=== PATIENT | female | born 1950 | race Caucasian/White ===

== ENCOUNTER → 2017-10-18 08:46 | Outpatient (CLI) | payer OTHER, SELFPAY ==
--- NOTE | 2017-10-15 08:15 | RAD_ITS ---
STUDY: X-RAY - ABDOMEN/PELVIS REASON FOR EXAM: Female, 67 years old. 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 TECHNIQUE: Single AP view of the abdomen / pelvis. COMPARISON: None. FINDINGS: Residual fecal material is seen in the colon. The barium enema was rescheduled for further cleansing. RAD/Abdomen Single View IMPRESSION: Fecal material is seen in the colon. The barium enema is rescheduled with further colon cleansing. Electronically Signed: Felix Galeana MD at 9:12 EST Tel [phone], Service support ,
--- NOTE | 2017-10-16 08:45 | RAD_ITS ---
STUDY: X-RAY - ABDOMEN/PELVIS REASON FOR EXAM: Female, 67 years old. Preliminary view for barium enema. TECHNIQUE: Single AP view of the abdomen / pelvis. COMPARISON: None. FINDINGS: Residual fecal material is seen in the colon. Further bowel prep is needed. RAD/Abdomen Single View IMPRESSION: Residual fecal material in the colon. Further bowel prep is needed. Electronically Signed: Felix Galeana MD at 10:15 EST Tel [phone], Service support ,
--- NOTE | 2017-10-18 09:45 | RAD_ITS ---
STUDY: X-RAY - ABDOMEN/PELVIS REASON FOR EXAM: Female, 67 years old. Preliminary imaging for barium enema. TECHNIQUE: Single AP view of the abdomen / pelvis. COMPARISON: Comparison is made with prior examination dated 2017. FINDINGS: Residual fecal material is seen in the colon. Further prep is recommended. RAD/Abdomen Single View IMPRESSION: Residual fecal material seen in the colon. Electronically Signed: Felix Galeana MD at 15:23 EST Tel [phone], Service support ,
== END ==
PROVIDERS: Family Provider Family Medicine; PCP Family Medicine; Visit Provider Surgery
DX: R93.5 Abnormal findings on diagnostic imaging of other abdominal regions, including retroperitoneum (principal)
CPT/HCPCS: 74018

== ENCOUNTER → 2018-01-17 08:18 | Outpatient (CLI) | payer MEDICARE, OTHER, SELFPAY ==
--- NOTE | 2018-01-17 08:26 | BI_ITS ---
MAMMOGRAPHY - BILATERAL SCREENING REASON FOR EXAM: Female, 67 years old. Routine annual screening examination. PERTINENT HISTORY: Non-contributory. TECHNIQUE: Digital bilateral breast sharron (3D mammographic acquisition) in the CC and MLO projections. 2-D mediolateral oblique (MLO) and craniocaudad (CC) views of both breasts were obtained. CAD: Full Field Digital Mammography with Computer Added Detection was performed. COMPARISON: Comparison is made with prior study dated December 24, 2016 and December 22, 2015. FINDINGS: Breast Composition: The breasts are heterogeneously dense, which may obscure small masses. There are no dominant masses or suspicious calcifications. No other significant abnormalities are identified. There has been no significant change since the prior study. BI/SCREENING MAMM (CAD), BILAT IMPRESSION: Stable bilateral screening mammogram. Yearly follow-up mammogram recommended. (A) ASSESSMENT CATEGORY: BIRADS Category 1: Negative. A letter regarding these results will be sent to the patient by the facility within 30 days. Approximately 10% of breast cancers are not detected by mammography. A normal mammogram should not delay biopsy of a clinically suspicious abnormality. [id number] Electronically Signed: Felix Galeana MD at 10:38 EDT Tel [phone], Service support ,
== END ==
PROVIDERS: Family Provider Family Medicine; PCP Family Medicine; Visit Provider Obstetrics & Gynecology
DX: Z12.31 Encounter for screening mammogram for malignant neoplasm of breast (principal)
CPT/HCPCS: 77063; 77067

== ENCOUNTER 2018-02-08 12:23 | Emergency (ER) | payer MEDICARE, OTHER, SELFPAY ==
[2018-02-08 12:24] VITALS: BP 145/107; PULSE 87; RESP 14; TEMP 36.7; O2SAT 97; BMI 24.9
--- NOTE | 2018-02-08 12:44 | CT_ITS ---
STUDY: CT ABDOMEN AND PELVIS WITHOUT CONTRAST REASON FOR EXAM: Female, 67 years old. Right lower quadrant pain, history of hysterectomy, appendectomy, cholecystectomy, and partial bowel resection for diverticulitis. RADIATION DOSAGE (If Supplied By Facility): CTDIvol = ( 6.95 ) mGy, DLP = ( 326.28 ) mGycm TECHNIQUE: Transaxial images were obtained from the dome of the diaphragm to the symphysis pubis without oral contrast, and without intravenous contrast. Sagittal and coronal images were reconstructed. Individualized dose optimization techniques were used for this CT. COMPARISON: 09/23/2017 FINDINGS: The visualized lung bases are unremarkable. The visualized portions of the heart are within normal limits. Evaluation of the abdominal viscera is limited in the absence of intravenous contrast. There is a small calcification within the liver which may represent old granulomatous disease. The gallbladder is not visualized. Normal spleen. Normal pancreas. Normal bilateral adrenal glands. Normal right kidney. There are multiple parapelvic cysts within the left kidney. There is an intermediate attenuation exophytic lesion along the posterior left kidney. This was present on the prior study, and may represent a hyperdense cyst. Normal visualized stomach. Normal small intestine. Postoperative changes are seen to the rectosigmoid colon. There are multiple colon diverticula. There are surgical clips in the region of the appendix consistent with a prior appendectomy. There is diffuse atherosclerotic calcification of the abdominal aorta, without a demonstrated aneurysm. Normal inferior vena cava. Normal retroperitoneum. Normal urinary bladder. There is absence of the uterus consistent with a prior hysterectomy. Postoperative changes are seen to the anterior abdominal wall. There are diffuse degenerative changes of the visualized lumbar spine. CT/Abdomen/Pelvis without Cont IMPRESSION: No bowel obstruction or acute renal pathology. Postoperative changes of appendectomy, cholecystectomy, and hysterectomy. Diverticulosis, without acute diverticulitis. There is a 1.2 cm intermediate attenuation lesion along the posterior left kidney, which may represent a hyperdense cyst. This can be further interpreted by ultrasound. Additional nonacute findings, as detailed above. Electronically Signed: Kalpesh March DO at 14:21 EDT Tel , Service support ,
[2018-02-08] MEDS: morphine 8 MG/ML Syringe IV (13:03)
[2018-02-08] MEDS: Ondansetron 4 MG/2 ML Vial IV (13:04)
[2018-02-08 13:23] LABS: Absolute Lymphocyte Count 1.34 X10^3/ul (0.83-4.51); Absolute Neutrophil Count 3.3 X10^3/uL (2.0-7.7); Basophil# 0.02 X10^3/uL; Basophil% 0.3 % (0-1); Eosinophil# 0.34 X10^3/uL; Eosinophils% 5.8 % (0-5); Hematocrit 46.2 % (37-47); Hemoglobin 15.7 g/dl (12.0-15.0); Lymphocyte # 1.34 X10^3/ul (4.0); Mean Corpuscular Hgb 30.4 pg (27.0-32.0); Mean Corpuscular Volume 89.5 fL (81-99); Mean Platelet Vol. 11.3 fl (6.2-12.0); Monocyte# 0.79 X10^3/uL; Monocyte% 13.6 % (0-10); Neutrophil # 3.32 X10^3/uL (2.7-7.7); Neutrophil % 57.1 % (47-70); Platelet Count 121 K/mm3 (150-450); RBC Distribution Width CV 13.3 % (11.6-14.6); RBC Distribution Width SD 43.4 fl (35.1-43.9); Red Blood Count 5.16 M/mm3 (4.2-5.4); White Blood Count 5.8 K/mm3 (4.4-11.0)
[2018-02-08 13:24] LABS: POSITIVE COUNT NO; POSITIVE DIFFERENTIAL NO; POSITIVE MORPHOLOGY NO
[2018-02-08 13:37] LABS: ALB/GLOB Ratio 1.1 RATIO (0.9-2.4); AST(SGOT) 13 U/L (15-37); Alanine Aminotransfer ALT/SGPT 21 U/L (13-56); Albumin, Serum 3.5 g/dL (3.2-5.0); Alkaline Phosphatase 102 U/L (45-117); Anion Gap 7 (5-15); BUN 16 mg/dL (7-18); BUN/Creat Ratio 19.2 RATIO (10-20); Calcium,Total 9.3 mg/dL (8.5-10.1); Chloride 112 mmol/L (98-107); Creatinine, Serum 0.83 mg/dL (0.55-1.02); EST Glomerular Filtration Rate 73 mL/min (>60); Est Glom Filt Rate - Afr Amer 88 mL/min (>60); Estimated Creatinine Clearance 57.57 ml/min; Globulin 3.2 g/dL (2.2-4.2); Glucose 85 mg/dL (74-106); Potassium 3.8 mmol/L (3.5-5.1); Protein, Total 6.7 g/dL (6.4-8.2); Sodium Level 143 mmol/L (136-145)
--- NOTE | 2018-02-08 13:38 | ED.DCSUM_ITS ---
- ER Visit Summary Date of Service: 02/08/18 Chief Complaint: [] Right-sided abdominal pain for months status post colon resection earlier in the year History of Present Illness: The patient is a 67 F [] she reports she had a colon resection early in this year at [facility] uncomplicated, postop she is developed side abdominal pain she has been evaluated by her physicians for this including CAT scans and other studies are unremarkable she was referred to pain management. The pain has persisted she is on either Frisco or Percocet at home but does not like taking them the pain is simply persisted she came in for evaluation she is eating and drinking her bowel and bladder habits are normal she has multiple surgeries including colectomy prior cholecystectomy appendectomy hysterectomy she was told the pain is likely related to adhesions, she points directly to the right side of her abdomen as the focus of the pain Physical Examination: [] No distress her vital signs are normal head neck chest unremarkable abdomen soft there is a very mild discomfort to the right side abdomen there is no firmness fullness guarding signs of hernia or other gross abnormalities there is no rebound or guarding the back is unremarkable upper lower extremities unremarkable the rest of exams unremarkable Test Results: [] Emergency Department Course and Treatment: [] She has had these symptoms for months that is acute and recurrent, she has had a prior extensive evaluation the differential is rather extensive screening labs CT are obtained pain management IV fluids Since labs are all generally unremarkable see those reports the CT abdomen shows nothing acute see that report as well and long conversation with her the understand the test results this is a long-standing condition she has had of explained exact etiology is unclear and she is to follow with her physicians who have been managing this process for more definitive management options in the meantime she is in a bland diet she has Percocet or Frisco at home that she has been prescribed to use and she will return for change in symptoms Treatment Plan: [] Disposition: [] Home stable Impression: [] Acute recurrent right sided abdominal pain with exacerbations for months This note was generated with [employer] dictation software. It may contain incorrect words, spelling, and punctuation that were not noted in review of the chart prior to signing ED Disposition - Plan for ED Patient: Chief Complaint: Other, Pain/Inj Referrals: Hans Armenta III, MD [Primary Care Provider] -
[2018-02-08 14:25] LABS: Bacteria 0 SEEN /hpf (None Seen); Mucous, Urine 0 SEEN /hpf (<or=2+)
[2018-02-08 14:27] LABS: Color, Urine Yellow (Yellow); Glucose, Dipstick Normal (Normal); Ketone-Dipstick Negative (Negative); Leukocyte Esterase-Dipstick 25 /ul (Negative); Nitrite-Dipstick Negative (Negative); Occult Blood-Urine Negative /ul (Negative); Protein-Dipstick Negative (Negative); Urine Bilirubin Dipstick Negative (Negative); Urine Clarity Clear (Clear); Urine Urobilinogen Normal (Normal)
[2018-02-08 14:41] LABS: Red Blood Cells-Urine 0-5 SEEN /hpf (0-5); Squamous Epithelial Cells - UA 5-10 SEEN /hpf (5-10); White Blood Cells 0-5 SEEN /hpf (0-5)
--- NOTE | 2018-02-08 16:03 | ED.DEP ---
ED Disposition - Plan for ED Patient: Chief Complaint: Other, Pain/Inj Instructions: Abdominal Pain, ED Abdominal Pain Unkn Cause Referrals: Hans Armenta III, MD [Primary Care Provider] -
[2018-02-08 16:32] VITALS: BP 136/82; PULSE 70; RESP 16; O2SAT 100
== END 2018-02-08 16:33 | disposition home or self-care (01) ==
PROVIDERS: Emergency Provider Emergency Medicine; Family Provider Family Medicine; PCP Family Medicine
DX: R10.9 Unspecified abdominal pain (principal); Z90.710 Acquired absence of both cervix and uterus; Z90.49 Acquired absence of other specified parts of digestive tract
CPT/HCPCS: 74176; 80053; 81001; 85025; 96374; 96375; 99282; A4216; J2405

== ENCOUNTER → 2018-02-19 10:50 | Outpatient (CLI) | payer MEDICARE, OTHER, SELFPAY ==
--- NOTE | 2018-02-19 11:30 | MRI_ITS ---
STUDY: MRI ABDOMEN WITH AND WITHOUT CONTRAST REASON FOR EXAM: Female, 67 years old. Liver mass left lobe. TECHNIQUE: Standardized fat and water weighted pulse sequences were obtained in all 3 orthogonal planes post contrast administration. 7 ml of Gadavist contrast material was administered intravenously for the contrast portion of the examination. COMPARISON: CT abdomen and pelvis 12/24/2017, 02/08/2018, 08/12/2016. Ultrasound liver 02/04/2018. FINDINGS: Ultrasound report of 02/05/2018 describes a 16 x 11 x 15 mm echogenic mass abutting or arising from the left portal vein. This structure is seen also on the contrast-enhanced CT scan of 12/24/2017. On the MRI, the apparent lesion associated with the left portal vein has substantially diminished in size. It now measures a greatest dimension of about 7 mm. It has signal characteristics and morphology consistent with an intraluminal thrombus. Benign nonenhancing left renal cysts. There is no other acute intra-abdominal process. MRI/MRI Abd WITH and W/O Contrast IMPRESSION: Left portal vein, intraluminal thrombus substantially diminished in size compared to recent prior imaging. It now measures about 7 mm. Electronically Signed: Marvin Arrieta, at 12:40 EDT Tel , Service support ,
== END ==
PROVIDERS: Family Provider Family Medicine; PCP Family Medicine; Visit Provider Family Medicine
DX: R16.0 Hepatomegaly, not elsewhere classified (principal)
CPT/HCPCS: 74183; A9585; A4216

== ENCOUNTER → 2018-04-01 08:56 | Outpatient (CLI) | payer MEDICARE, OTHER, SELFPAY ==
--- NOTE | 2018-04-01 08:58 | US_ITS ---
STUDY: RENAL ULTRASOUND - COMPLETE REASON FOR EXAM: Female, 67 years old. Left renal cyst follow-up. TECHNIQUE: Ultrasound evaluation of the kidneys was performed with real-time and static porter-scale imaging. COMPARISON: CT abdomen and pelvis February 08, 2018; MRI abdomen February 19, 2018. FINDINGS: RIGHT KIDNEY: Normal location of the right kidney, which is normal in size. The right kidney measures 10.0 x 4.6 x 5.2 cm. There is a normal cortex of the right kidney. The renal cortex measures 1.4 cm. There is no right renal mass or cyst. There are no right renal calculi. There is no right hydronephrosis. DISTAL RIGHT URETER: There is non-visualization of the distal right ureter. There is no demonstrated right ureterovesical junction calculus. There is a visualized right ureteral jet. LEFT KIDNEY: Normal location of the left kidney, which is normal in size. The left kidney measures 9.7 x 4.6 x 4.3 cm. There is a normal cortex of the left kidney. The renal cortex measures 1.3 cm. There is a 1.6 x 1.6 x 1.2 cm simple appearing cortical cyst in the upper pole. A 1.3 x 1.1 x 1.4 cm parapelvic upper pole cyst is also suggested, although this may be a calyceal component of the pelvocaliectasis noted on prior imaging. There are no left renal calculi. DISTAL LEFT URETER: There is non-visualization of the distal left ureter. There is no demonstrated left ureterovesical junction calculus. There is a visualized left ureteral jet. BLADDER: The distended urinary bladder has a volume of 318.4 ml. There is a normal 3 mm wall thickness of the distended urinary bladder. There is no demonstrated mass within the urinary bladder. There are no demonstrated bladder calculi. US/Kidney and Bladder IMPRESSION: 1. Stable cortical cyst upper pole left kidney. 2. 1.4 cm parapelvic left upper pole cyst versus stable calyceal component of left pelvocaliectasis. 3. No ureteral dilatation. 4. Unremarkable right kidney and urinary bladder. Electronically Signed: Meng Kilgore MD at 19:37 EDT , Service support ,
== END ==
PROVIDERS: Family Provider Family Medicine; PCP Family Medicine; Visit Provider Urology
DX: D30.00 Benign neoplasm of unspecified kidney (principal)
CPT/HCPCS: 76770

== ENCOUNTER 2018-12-10 12:34 | Emergency (ER) | payer MEDICARE, OTHER, SELFPAY ==
[2018-12-10 12:37] VITALS: BP 163/83; PULSE 77; RESP 16; TEMP 36.7; O2SAT 97; BMI 25.7
--- NOTE | 2018-12-10 12:48 | EKG12_ITS ---
Test Reason : Blood Pressure : / mmHG Vent. Rate : 063 BPM Atrial Rate : 063 BPM P-R Int : 172 ms QRS Dur : 072 ms QT Int : 402 ms P-R-T Axes : 051 -29 049 degrees QTc Int : 411 ms Normal sinus rhythm with sinus arrhythmia Normal ECG Confirmed by KENAN BONE, PARAM ([id number]), newspaper editor managing TIMI CROSS ([id number]) on 12/12/2018 8:35:05 AM Referred By: EILEEN Confirmed By:PARAM GRAYSON MD
--- NOTE | 2018-12-10 12:55 | RAD_ITS ---
STUDY: X-RAY CHEST REASON FOR EXAM: Female, 68 years old. Chest pain. Cough. TECHNIQUE: PA and lateral views of the chest. COMPARISON: None. FINDINGS: EKG electrodes are seen. The lungs are clear and expanded. Scattered calcified granulomas. The lungs are clear. There is no demonstrated pleural abnormality. Normal size heart. Normal mediastinum and edel. Normal visualized pulmonary arteries. Normal visualized aortic arch and descending thoracic aorta. There is demineralization of the osseous structures. Normal visualized ribs, clavicles, and shoulders. There is no demonstrated abnormality of the visualized soft tissue structures of the upper abdomen. RAD/Chest PA and Lateral IMPRESSION: Hyperinflation. No acute abnormality is seen. Electronically Signed: Felix Galeana, at 14:19 EDT , Service support ,
--- NOTE | 2018-12-10 13:10 | ED.VIS.GEN ---
History of Present Illness Chief Complaint: Palpitations Detail of Chief Complaint: Sent for evaluation of Evon garza Informant: Patient, Family Onset: - - Unknown Context: - - Unknown Timing: - - Unknown Quality: No cardiac symptoms Current Severity: Mild Maximum Severity: Mild Worsened by: Nothing Relieved by: Nothing Associated Symptoms: URI symptoms that started end of October. Placed on antibiotics Narrative: Elderly woman who reports URI symptoms that started at the end of October. Seen at urgent care November 26 placed on Z-Amado. Her and her went to [place] for 1 month vacation. She complained of leg pain but denies swelling or discoloration. She went to urgent care because of persistent cough and was sent to the emergency room because of irregular heartbeat and concern for atrial fibrillation. She denies fever, chills night sweats. She states she received influenza vaccine and Pneumovax vaccine this fall. Prior similar symptoms: Yes Recent Illness/Hospitalization: Yes - Past Medical History (1) History of hypothyroidism Status: Chronic (2) Diverticulosis Status: Resolved (3) GERD (gastroesophageal reflux disease) Status: Chronic (4) History of cholecystectomy Status: Resolved (5) History of hysterectomy Status: Acute (6) IBS (irritable bowel syndrome) Status: Resolved Past Medical History - Allergies and Home Meds Allergies/Adverse Reactions: Allergies atorvastatin [From Lipitor] Allergy (Mild, Verified 12/10/18 12:36) itching Primary Care Physician: Hans Armenta III, MD [Primary Care Provider] - Prior records reviewed: Yes Lives: Spouse/ Significant Other Smoking Status: Never smoker Drugs: None Review of Systems General: Denies: Chills, Fever, Sweats Eyes: Denies: Visual changes - bilaterally, Blurred Vision - bilaterally, Diplopia ENT: Denies: Bilateral ear pain, Rhinorrhea, Sore throat Cardiovascular: Denies: Chest pain, Palpitations Respiratory: Reports: Cough. Denies: Dyspnea, Dyspnea on exertion, Orthopnea Gastrointestinal: Denies: Abdominal pain, Nausea, Vomiting, Diarrhea, Melena, Hematochezia Genitourinary: Denies: Dysuria, Hematuria, Frequency Musculoskeletal: Denies: Myalgias, Arthralgias, Back pain, Extremity Pain Skin: Denies: Rash, Wounds Neurological: Denies: Headache, Weakness, Parasthesia, Numbness Hematologic: Denies: Easy bruising, Easy bleeding Physical Exam Vital Signs/Narrative: Vital Signs Temp Pulse Resp BP Pulse Ox 12/10/18 12:37 98.1 F 77 16 163/83 H 97 Inital Vital Signs reviewed: Yes General: Well nourished, Well developed, No Acute Distress Head: Normocephalic, Atraumatic Eyes: Perrl, EOMI. Negative for: Pale conjunctiva, Scleral icterus ENT: Moist mucous membranes, No rhinorrhea, TM's clear. Negative for: Nasal congestion Neck: Supple, Nontender, No lymphadenopathy, No JVD Cardiovascular: Regular rate, Regular rhythm, No murmurs, Normal S1, Normal S2 Respiratory: No distress, Chest nontender, Wheezing - Noted on right only Abdomen: Soft, Nontender, Nondistended, Normal bowel sounds, No masses Back: Nontender, Normal Inspection Extremities: Nontender, No edema, - - There is no asymmetry, swelling, discoloration, leg vein distention, palpable cords or tenderness along the distribution of the deep venous system. Skin: Normal color, No rash. Negative for: Cyanosis, Jaundice Neurological: Alert, Oriented x3, Cranial nerves II-XII grossly intact, Normal Strength, Normal Sensation, Normal Gait Psychological: Normal affect, Normal Mood Diagnostic/Tx/Re-eval Chest X-Ray - ED: 2 View, Read by ED Physician, Unchanged, Normal, Heart, Lungs, Mediastinum, Bony Structures, No Acute Disease - Rhythm Strip Rhythm Strip: Sinus Rhythm Rate: 80 Ectopy: PAC(s) - EKG Initial EKG Interpretation: Sinus Rhythm - Ventricular rate is 63. HI interval, QRS duration, QT interval and axis are normal. No PACs were noted. - Medical Decision Making EKG was ordered because of irregular heartbeat. Monitor reveals PACs. EKG revealed sinus rhythm with respiratory variance. Two-view chest x-ray is unremarkable. Patient was informed she has a viral upper respiratory infection and antibiotics are not indicated at this time. She was informed she did not get better because she was placed on antibiotics and antibiotics do not treat viral infections Differential diagnosis includes a pressor infection, pneumonia and exacerbation of bronchospasm. She was instructed to administer 2 puffs of her inhaler every 2-4 hours while awake for the next 3-5 days. If no improvement follow-up with her primary care physician. ED Disposition - Plan for ED Patient: Disposition: Home or Assisted Living Diagnosis: Asthmatic bronchitis Instructions: ED Palpitations, ED Upper Resp Infec No Abx Tx Referrals: Hans Armenta III, MD [Primary Care Provider] - 1 Week if not improving Additional Instructions: Recommend lower every 2-4 hours while awake for the next 3 days then every 4 hours as needed for wheezing or shortness of breath.
[2018-12-10 14:04] VITALS: BP 137/77; PULSE 59; RESP 17; O2SAT 99
== END 2018-12-10 14:59 | disposition home or self-care (01) ==
PROVIDERS: Emergency Provider Emergency Medicine; Family Provider Family Medicine; PCP Family Medicine
DX: J45.909 Unspecified asthma, uncomplicated (principal); K58.9 Irritable bowel syndrome, unspecified; K21.9 Gastro-esophageal reflux disease without esophagitis; E03.9 Hypothyroidism, unspecified; Z90.49 Acquired absence of other specified parts of digestive tract; Z90.710 Acquired absence of both cervix and uterus
CPT/HCPCS: 71046; 93005; 99282

== ENCOUNTER 2019-01-14 12:21 | Observation (INO) | payer MEDICARE, OTHER, SELFPAY ==
--- NOTE | 2018-12-25 07:21 | PCM.HP.BLA ---
History and Physical Date of Admission: 01/26/19 HISTORY AND PHYSICAL Hallie Guzman 1950 REFERRING PHYSICIAN: Hans Armenta III, MD CHIEF COMPLAINT: Consult (umbilical hernia) HPI: Hallie is a 68 year old female with a complaint of a bulge and discomfort in her prior midline incision. The patient notes discomfort in this area with lifting, coughing and moving. The symptoms have increased, over the past few months. The patient notes no symptoms of bowel obstruction and denies nausea or vomiting. The patient was seen by her primary care physician who felt the patient has a hernia. Hallie was referred for evaluation and treatment. She underwent an open sigmoid resection by Dr. Wolff at [facility] for a chronic diverticular stricture and developed an incisional hernia of approximately 9cm length at the level of the umbilicus. The patient is being seen by me today at the request of Dr. Hans Armetna III MD for my opinion and advice regarding an incision hernia. PAST MEDICAL HISTORY Diagnosis Date ? Benign neoplasm of colon ? Cyst of kidney, acquired ? Cyst of left kidney ? Diverticulosis of colon with hemorrhage sigmoid ? Esophagitis ? Essential hypertension, benign 11/08/2014 ? GERD (gastroesophageal reflux disease) 05/26/2009 ? Hypothyroidism ? IBS (irritable bowel syndrome) ? Seasonal allergies allergy injections ? Sebaceous cyst of left axilla 06/06/2018 ? 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 Trochanteric bursitis of right hip 12/12/2012 PAST SURGICAL HISTORY Procedure Laterality Date ? APPENDECTOMY ? CATARACT SURGERY, COMPLEX 07/26/16 ? CHOLECYSTECTOMY ? COLONOSCOP W/ OR W/O [facility] 11/10/2001 Colonoscopy ? COLONOSCOP W/ OR W/O [facility] 03/24/2008 Colonoscopy ? COLONOSCOP W/ OR W/O [facility] 02/08/16 Colonoscopy (MAC) ? COLONOSCOPY W/BX 04/18/12 ? D&C, DIAG AND/OR THERAPEUTIC ? EGD W/O OR W/BRUSH/WASH 07/22/2002 EGD ? LAP COLECTOMY, SIGMOID W/ATHLETIC DIRECTOR 11/11/2017 [facility]-Dr. Hayden Wolff ? PAST SURGICAL HISTORY OF LAPAROSCOPY FOR INFERTILITY ? PAST SURGICAL HISTORY OF 02/2011 right index finger ganglion cyst removal ? REMOVAL GALLBLADDER 04/2003 ? TOTAL ABD HYSTERECTOMY+BLAD REPR 1997 [facility] ? TOTAL ABDOM HYSTERECTOMY 1997 Current Outpatient Medications: cholecalciferol, vitamin D3, (VITAMIN D3) 4,000 unit cap Take 1 capsule by mouth once daily. metoprolol tartrate, short acting, (LOPRESSOR) 25 mg tablet Take 1 tablet by mouth twice daily as needed. albuterol HFA (PROAIR HFA) 90 mcg/actuation inhaler Inhale 2 Puffs as instructed every 4 hours as needed. benzonatate (TESSALON PERLES) 100 mg capsule Take 2 capsules by mouth three times daily as needed. levothyroxine (LEVOXYL) 88 mcg tablet Take 1 tablet by mouth once daily. Take on empty stomach. For Thyroid simvastatin (ZOCOR) 40 mg tablet Take 1 tablet by mouth daily at bedtime. pantoprazole DR (PROTONIX) 40 mg tablet Take 1 tablet by mouth once daily. fluticasone (FLONASE) 50 mcg/actuation nasal spray Use 2 Sprays in each nostril once daily. Rinse mouth after use. estradiol (ESTRACE) 0.01 % (0.1 mg/gram) vaginal cream Use small amount at vaginal opening 3 nights a week for 4 weeks sucralfate (CARAFATE) 1 gram tablet Take 1 tablet by mouth four times daily as needed. naproxen (NAPROSYN) 500 mg tablet Take 1 tablet by mouth twice daily as needed. Take with food. carbamide peroxide (DEBROX) 6.5 % otic solution Use 5 Drops in both ears twice daily. chlordiazePOXIDE-clidinium (LIBRAX) 5-2.5 mg per capsule Take 1 capsule by mouth three times daily. No current facility-administered medications for this visit. ALLERGIES: Lipitor [Atorvastatin Calcium] PERSONAL HISTORY: Social History Socioeconomic History Marital status: Spouse name: Luis Number of children: 2 Years of education: 13 Highest education level: Not on file Social Needs Financial resource strain: Not on file Food insecurity - worry: Not on file Food insecurity - inability: Not on file Transportation needs - medical: Not on file Transportation needs - non-medical: Not on file Occupational History Occupation: [employer] Employer: [employer] Tobacco Use Smoking status: Never Smoker Smokeless tobacco: Never Used Substance and Sexual Activity Alcohol use: Yes Comment: rarely Drug use: No Sexual activity: Yes Partners: Male control/protection: Surgical Comment: JUAN CARLOS Other Topics Concerns: Not on file Social History Narrative Not on file FAMILY HISTORY: FAMILY HISTORY Problem Relation Age of Onset ? Heart Mother ? Hypertension Mother ? Stroke Mother ? other (low iron) Mother ? Heart Father 3 stents ? None Brother ? Coronary Artery Disease Brother REVIEW OF SYMPTOMS: The review of systems data was entered by the nurse and reviewed by me Nursing Notes: Allyson Vazquez Ma 12/23/2018 2:52 PM Signed REVIEW OF SYSTEMS: General: The patient denies fatigue, denies weight loss, denies weight gain, denies feeling hot, and denies feelings of cold. Eyes: The patient denies glaucoma, NOTES eye injury/surgery, wears glasses or contacts. Ear/Nose/Throat: The patient NOTES allergies, denies hayfever, denies ear infections, and denies bloody noses. Cardiovascular: The patient denies chest pain, denies heart disease, denies high blood pressure,denies cardiac stent, denies prior heart attack, NOTES irregular heart beat, NOTES high cholesterol, denies poor circulation, denies heart failure, other cardiac issues, denies claudication, denies cold feet, denies peripheral arterial stent. Respiratory: The patient denies tuberculosis, denies pneumonia, denies frequent cough, denies pulmonary embolism, denies shortness of breath, and denies coughing up blood. Gastrointestinal: The patient denies difficulty swallowing, NOTES acid reflux, denies ulcers, denies vomiting, denies jaundice/hepatitis, denies gallbladder problems, denies black or tarry stools, denies hemorrhoids, denies bleeding from rectum, denies diverticulitis, NOTES constipation, denies diarrhea, denies loss of stool control, and NOTES hernias. Kidney/Bladder: The patient denies kidney stones, denies urine infections, and denies bloody urine. Skin: The patient NOTES a history of skin cancer, denies bleeding/changing moles, and denies a history of skin rash. Neurologic: The patient denies a history of epilepsy/convulsions, denies headaches, denies head/spinal injuries, and denies stroke/TIA. Psychiatric: The patient denies psychiatric medications, denies depression, and denies voices, denies substance abuse. Endocrine: The patient NOTES thyroid disorders, denies diabetes, and denies hormonal problems. Hematologic: The patient denies a history of bruising, denies bleeding, and denies anemia, denies blood clots, NOTES Low platlet count Infections: The patient denies a history of measles and mumps, denies rheumatic fever, and denies sexually transmitted diseases. Musculoskeletal: The patient denies back pain/injury, denies back problems, denies sciatica, denies knee/foot trouble, denies arthritis, or denies gout. When was patient's last Mammogram screening? 2018 Last Colonoscopy: 2015 Allysonreynold Vazquez Ma PHYSICAL EXAMINATION: General: The patient is 68 year old female, well nourished, well hydrated in no acute distress. The patient is oriented to time, place, and person. VITALS: Blood pressure 128/72, pulse 86, temperature 36.4 ?C (97.5 ?F), temperature source Temporal Artery, height 162.6 cm (5' 4), weight 74.8 kg (165 lb), SpO2 95 %. Body mass index is 28.32 kg/m?. HEENT: Normal cephalic, ataumatic, pupils are equally round, sclera are anicteric, mucous membranes are moist, oropharynx is clear. Neck has no masses, asymmetry or lymphadenopathy. Thyroid is unremarkable. Respiratory: Clear to auscultation and percussion. Normal respiratory excursion and pattern. Cardiac: Examination is regular rate and rhythm. Abdominal exam: Soft, nontender, with no palpable masses. No hepatosplenomegaly. A moderate reducible incisional hernia Rectal exam: exam deferred Extremities: no clubbing, cyanosis or edema. No adenopathy. Other: LABORATORY VALUES: As Noted RADIOLOGIC STUDIES: As Noted Assessment IMPRESSION: prior midline incisional hernia PLAN: My plan is to perform a laparoscopic incisional hernia repair with mesh. The planned surgical procedure was discussed extensively with the patient. The risks, benefits, anticipated outcomes and possible complications were mentioned. Hallie adameands that all hernia repair surgery has a chance of recurrence and/or chronic post operative pain. My staff has also explained the procedure in understandable terms and the patient was given the option to take printed material concerning the planned procedure. The patient had the opportunity to ask questions concerning the planned procedure. The patient freely consents to the planned procedure. My findings have been communicated to Dr. Hans Armenta III MD via shared medical record. This note will be forwarded to Dr. Hans Armenta III MD. Diagnoses: (K43.2) Incisional hernia, without obstruction or gangrene (primary encounter diagnosis) Anticipated CPT Code: laparoscopic incisional hernia repair - 67434-781 Anticipated Anesthetic: General Patient weight: Blood pressure 128/72, pulse 86, temperature 36.4 ?C (97.5 ?F), temperature source Temporal Artery, height 162.6 cm (5' 4), weight 74.8 kg (165 lb), SpO2 95 %. BMI: Body mass index is 28.32 kg/m?. Planned antibiotic: Ancef 2gm IVPB patient registration representative to OR SCDs needed - Yes Return to Clinic: The patient is instructed to follow-up with me after the testing has been completed. Marvin Ford MD
[2019-01-14] VITALS (19 sets, daily range): BP systolic 85–139; BP diastolic 44–94; PULSE 52–74; RESP 14–18; TEMP 35.8–37.4; O2SAT 2–100; BMI 28.5
--- NOTE | 2019-01-14 | HERN_PTH ---
PATIENT: ELIZABETH TALAVERA LOC: MS3 U#:[id number] AGE/SX: 68/F ROOM: MS312 RE01/14/[address]: Dr. Marvin Ford MD : 1950 BED: 1 DIS: 01/16/2019 SPEC #: [id number] RECD: 01/14/19 12:01 STATUS: CHRISTOS REQ #: [id number] JAYNE: 01/14/19 00:[address]: Marvin Ford DEPT: SURGICAL PATHOLOGY RECD BY: Jorge Tello ENTERED: 01/14/19 14:22 SP TYPE: Hernia OTHR DR: Dr. Hans Armenta III, MD Tissues: HERNIA Procedures: Surgery Specimen Level II HEADER OPERATION: Laparoscopic incisional hernia repair PRE-OP DIAGNOSIS: Incisional hernia TISSUE SUBMITTED: A - Hernia sac - incisional, B - Little incisional hernia sac MICROSCOPIC DIAGNOSIS A. Hernia sac, incisional: A piece of fibroadipose and fibroconnective tissue, consistent with hernia sac. B. Little incisional hernia sac: A piece of fibroadipose and fibroconnective tissue, consistent with hernia sac. MARQUIS:radha 01/15/19 MICROSCOPIC DESCRIPTION Slides are reviewed. GROSS DESCRIPTION A - Received in fixative is one container labeled with the patient's name and designated incisional hernia sac. The specimen consists of an irregular piece of soft tissue measuring 7 x 4.5 x 1 cm. No mass lesion is identified. Deoiling Machine Operator sections are submitted in one cassette. B - Received in fixative is one container labeled with the patient's name and designated little incisional hernia sac. The specimen consists of a piece of soft tissue measuring 1.7 x 1.5 x 0.6 cm. No mass lesion is identified. The specimen is serially sectioned and submitted entirely in one cassette. / MARQUIS:radha 01/14/19 TC:5 CPT: 12759 x2
[2019-01-14] MEDS: Cefazolin 2 GM in 0.9% Normal Saline 100 ML IV (09:27)
[2019-01-14] MEDS: Bupivacaine Mpf 0.5% 30 ML VIAL (12:15)
--- NOTE | 2019-01-14 12:24 | PCM.OPRPT ---
Report of Operation Date of Procedure: 01/14/19 Pre-Operative Diagnosis: periumbilical incisonal hernia Post-Operative Diagnosis: LLQ incisional hernia, midline incisional hernia with 8x5cm defect with peritoneal dehissence to lowest acpect of incision Surgery/Procedure Performed:: laparoacopic incarcerated incisional hernia repair x 2 portable irrigation operator: Starla Beckman Type of Anesthesia:: General Anesthesiologist: Jason Chiang - ASA2 Specimen's removed: hernia sac x 2 Estimated Blood Loss (mL): 40 Fluids Replaced: 1800 Description of Procedure: The patient was brought to the operating suite. Sign in was performed verifying patient, site, procedure, position, and DVT prophylaxis with SCDs. Patient received 2 g Ancef antibiotic prophylaxis. Following induction of general anesthetic, the patient?s abdomen was prepped and draped in the usual fashion. Timeout was performed verifying patient, site, position. Local anesthetic was injected. A linear incision was made and dissection carried down at the level of the umbilicus to the hernia defect. The hernia sac and the hernia sac was opened . The Sharma trocar was inserted and secured with the stay sutures. 2- 5mm ports were placed in the far left lateral position and a third port was placed in the upper midline position. Visual inspection revealed probably a 5 x 9 cm total defect with hernia sac and omentum adherent within the sac. There was extensive omental adhesions to the lower midline almost on the level of the pubis but certainly due to the extent of the full infraumbilical incision where the peritoneum was spread and omentum was directly adherent to the rectus muscle without obvious herniation of the anterior fascia. There was a occult hernia noted through the left lower quadrant port site which was not noted on CT scan. the left lower quadrant hernia site was inverted and the hernia sac excised and sent as specimen. Next a GraNee needle was used to place a gevbzl-lo-zzygh over the fascial defect to close the defect and a 6 cm [place] mesh was then placed and secured with 0 Prolene transfixing the fascia at 12 , 6 , 3 and 9:00 using a GraNee needle . The mesh was then tacked using a secure strap tacker around the outer rim of the mesh and then in multiple locations in the inner mesh next the midline defect was addressed.There was again omentum adherent within the hernia sac. This was dissected off the hernia sac and then dissected off the fascial defect margin . There were multiple adhesions intra-abdominally. These were carefully dissected through the hernia sac and dissected off the muscle using Harmonic scalpel. Once there was circumferential freeing of the small bowel and omentum , the hernia sac was dissected completely free from the subcutaneous fat down to the level of the fascial defect and removed through the umbilical defect.. Dissection of the hernia sac at the level the umbilicus and then excess surrounding preperitoneal fat was dissected to allow flat placement of the intra-abdominal mesh. The falciform ligament was also divided to prevent tenting. The hernia sac tissue was excised and sent to pathology. a V lock running suture was used to close the peritoneum over the rectus muscle from the lowest aspect of the midline incision up to the margin of the fascial defect. At this point multiple oh and 1 Prolene vfeidb-eo-kmrxr sutures were placed through the umbilical incision both with a GraNee needle and then directly to cause interrupted closure of the fascial defect in the midline. All sutures except to were tied and then a Sharma trocar was reinserted and the midline mesh placed through the 10 mm trocar. The trocar was then removed and the remaining fascial sutures secured. A 14 x 11 cm ventral ex mesh was placed placed intra-abdominally. A Prolene suture was placed through the superior aspect of the mesh brought up with a Granee needle to just the upper midline allowing good overlap between the edge of the mesh and the superior aspect of the defect. Prolene sutures were placed transfixing the fascia at 12 , 6 , 3 and 9:00 using a GraNee needle . The mesh was then tacked using a secure strap tacker around the outer rim of the mesh and then in multiple locations in the inner mesh Subcutaneous fat was closed with interrupted 3-0 Vicryl suture. Skin was closed with a running and inturrepted 4-0 Monocryl subcuticular sutures. Steri-Strips and bandages were applied. The patient was brought to recovery room in stable condition. Grafts/Implants Used: ventraex st 6cm and ventrio [id number]
--- NOTE | 2019-01-14 12:27 | OP.PCM_ITS ---
Report of Operation Date of Procedure: 01/14/19 Pre-Operative Diagnosis: periumbilical incisonal hernia Post-Operative Diagnosis: LLQ incisional hernia, midline incisional hernia with 8x5cm defect with peritoneal dehissence to lowest acpect of incision Surgery/Procedure Performed:: laparoacopic incarcerated incisional hernia repair x 2 tube molder fiberglass: Starla Beckman Type of Anesthesia:: General Anesthesiologist: Jason Chaing - ASA2 Specimen's removed: hernia sac x 2 Estimated Blood Loss (mL): 40 Fluids Replaced: 1800 Description of Procedure: The patient was brought to the operating suite. Sign in was performed verifying patient, site, procedure, position, and DVT prophylaxis with SCDs. Patient received 2 g Ancef antibiotic prophylaxis. Following induction of general anesthetic, the patient?s abdomen was prepped and draped in the usual fashion. Timeout was performed verifying patient, site, position. Local anesthetic was injected. A linear incision was made and dissection carried down at the level of the umbilicus to the hernia defect. The hernia sac and the hernia sac was opened . The Sharma trocar was inserted and secured with the stay sutures. 2- 5mm ports were placed in the far left lateral position and a third port was placed in the upper midline position. Visual inspection revealed probably a 5 x 9 cm total defect with hernia sac and omentum adherent within the sac. There was extensive omental adhesions to the lower midline almost on the level of the pubis but certainly due to the extent of the full infraumbilical incision where the peritoneum was spread and omentum was directly adherent to the rectus muscle without obvious herniation of the anterior fascia. There was a occult hernia noted through the left lower quadrant port site which was not noted on CT scan. the left lower quadrant hernia site was inverted and the hernia sac excised and sent as specimen. Next a GraNee needle was used to place a xbnaah-yi-tycbx over the fascial defect to close the defect and a 6 cm [place] mesh was then placed and secured with 0 Prolene transfixing the fascia at 12 , 6 , 3 and 9:00 using a GraNee needle . The mesh was then tacked using a secure strap tacker around the outer rim of the mesh and then in multiple locations in the inner mesh next the midline defect was addressed.There was again omentum adherent within the hernia sac. This was dissected off the hernia sac and then dissected off the fascial defect margin . There were multiple adhesions intra-abdominally. These were carefully dissected through the hernia sac and dissected off the muscle using Harmonic scalpel. Once there was circumferential freeing of the small bowel and omentum , the hernia sac was dissected completely free from the subcutaneous fat down to the level of the fascial defect and removed through the umbilical defect.. Dissection of the hernia sac at the level the umbilicus and then excess surrounding preperitoneal fat was dissected to allow flat placement of the intra-abdominal mesh. The falciform ligament was also divided to prevent tentin g. The hernia sac tissue was excised and sent to pathology. a V lock running suture was used to close the peritoneum over the rectus muscle from the lowest aspect of the midline incision up to the margin of the fascial defect. At this point multiple oh and 1 Prolene daewsb-cr-otysx sutures were placed through the umbilical incision both with a GraNee needle and then directly to cause interrupted closure of the fascial defect in the midline. All sutures except to were tied and then a Sharma trocar was reinserted and the midline mesh placed through the 10 mm trocar. The trocar was then removed and the remaining fascial sutures secured. A 14 x 11 cm ventral ex mesh was placed placed intra-abdominally. A Prolene suture was placed through the superior aspect of the mesh brought up with a Granee needle to just the upper midline allowing good overlap between the edge of the mesh and the superior aspect of the defect. Prolene sutures were placed transfixing the fascia at 12 , 6 , 3 and 9:00 using a GraNee needle . The mesh was then tacked using a secure strap tacker around the outer rim of the mesh and then in multiple locations in the inner mesh Subcutaneous fat was closed with interrupted 3-0 Vicryl suture. Skin was closed with a running and inturrepted 4-0 Monocryl subcuticular sutures. Steri-Strips and bandages were applied. The patient was brought to recovery room in stable condition. Grafts/Implants Used: ventraex st 6cm and ventrio [id number]
[2019-01-14] MEDS: Morphine 4 MG/ML Syringe IV ×4 (16:34→23:46)
[2019-01-14] MEDS: 0.9% NaCl Peripheral Flush Adult/Peds IV ×4 (16:35→23:46)
[2019-01-14] MEDS: Lactated Ringers 1,000 ML 80 ML IV (18:16)
--- NOTE | 2019-01-14 18:28 | NURSING ---
LOWER PELVIC DRSG SATURATED & LEAKING DRAINAGE, REINFORCED W/2 FOLDED 4X4 GAUZE & TAPE. DATE & TIME MARKED ON DRSG.
[2019-01-15] MEDS: Levothyroxine 88 MCG Tablet PO (05:18)
[2019-01-15] MEDS: Morphine 4 MG/ML Syringe IV (05:18)
[2019-01-15] MEDS: 0.9% NaCl Peripheral Flush Adult/Peds IV (05:19)
[2019-01-15] MEDS: Lactated Ringers 1,000 ML 80 ML IV ×2 (05:24→17:56)
[2019-01-15 05:25] VITALS: BP 129/68; PULSE 69; RESP 16; TEMP 37.2; O2SAT 94
--- NOTE | 2019-01-15 06:08 | PCM.PN.SRG ---
Subjective: incisional pain controlled with morphine - Physical Exam General: Alert, Oriented x3, Cooperative Lungs: Clear to auscultation, Normal air movement Cardiovascular: Regular rate, No murmurs Abdomen: Bowel Sounds Present, Soft, Hypoactive Bowel Sounds, Tender - at incisions Vital Signs Temp Pulse Resp BP Pulse Ox 99.0 F 69 16 129/68 H 94 01/15/19 05:25 01/15/19 05:25 01/15/19 05:25 01/15/19 05:25 01/15/19 05:25 Oxygen Flow Rate (L/min) 2 Oxygen Delivery Method Room Air Weight: 75.3 kg Body Mass Index (BMI) 28.5 Intake and Output for Last 24 Hours 01/13/19 01/14/19 01/15/19 23:59 23:59 23:59 Intake Total 2840 / 2840 432 / 432 Output Total 0 / 0 450 / 450 Balance 2840 / 2840 -18 / -18 Medical Necessity - Tobacco Use Smoking Status: Never smoker Tobacco Use: Non-smoker Assessment/Plan All Active Problems (Last Reviewed 01/15/19 @ 05:43 by Marvin Ford MD) Osteopenia (Acute) S/P colectomy (Acute) History of cholecystectomy (Resolved) History of hysterectomy (Acute) Abdominal pain (Acute) Trochanteric bursitis of right hip (Acute) Thrombocytopenia (Acute) IBS (irritable bowel syndrome) (Resolved) Esophagitis (Acute) Diverticulosis (Resolved) Cyst of left kidney (Acute) POD # 1 s/p port site hernia and larger midline incisional hernia Will maintain clears and advance once improved bowel activity Encourage IS, ambulate with assistance continue pain medications, transition to oral when appropriate
--- NOTE | 2019-01-15 10:01 | CASEMGMT ---
RN JORDON LOCOMOTIVE DRIVER CM to room to meet with patient for initial transition planning/care coordination assessment. ADA RUVALCABA introduced self and role at [facility]. Pt voices understanding and consents to assessment at this time. Pt sitting up in recliner chair in no distress at this time. Pt is A/O at this time and answers all questions appropriately. Care providers, pharmacy, and demographics verified/updated at this time. PCP: Marcela Specialists: Logan. Has an appt with him next January 22 @ 1430. Preferred Pharmacy: [facility] on day of discharge. Otherwise, [facility] [place]. Insurance: [facility], MMO Prescription Benefit: [employer] Living Will/HPOA: Has both LW and HCPOA, who is her , Luis. States she will see if Luis can bring copies in. LNOK: Luis. Living Arrangements: Lives @ home with her Luis who is supportive. States independent with all ADL's prior to hospitalization. Transportation: Pt states drives self and states no transportation concerns at this time. DME: Denies using any DME and denies needs. HHC/SNF: No history of either. Denies needs and no needs identified. Pt wishes to return home and states has no concerns with going home at time of discharge. CM to follow for any discharge planning/needs. Pt voices no further concerns/needs at this time. Advised pt to ask for CM if any further questions/concerns/needs arise. Voices understanding. PLAN: Home with spousal support and discharge plans in place. Nithin LOPEZ RN, CM
[2019-01-15] MEDS: oxyCODONE 5 MG Tablet PO ×3 (11:03→22:48)
[2019-01-15 11:15] VITALS: BP 118/60; PULSE 72; RESP 18; TEMP 37.4; O2SAT 95
[2019-01-15 14:49] VITALS: BP 141/69; PULSE 65; RESP 18; TEMP 36.4; O2SAT 97
[2019-01-15 19:44] VITALS: BP 119/58; PULSE 62; RESP 16; TEMP 37.3; O2SAT 97
[2019-01-16 01:52] VITALS: BP 138/69; PULSE 74; RESP 16; TEMP 36.8; O2SAT 95
[2019-01-16] MEDS: Levothyroxine 88 MCG Tablet PO (05:48)
[2019-01-16] MEDS: Lactated Ringers 1,000 ML 80 ML IV (05:48)
--- NOTE | 2019-01-16 06:27 | DCINST_ITS ---
Discharge Diet: Light diet - advance as tolerated, - - clears until passing flatus Discharge Activity: Return to Normal Activity, May Drive - when you are no longer taking narcotic pain medications., May Shower - with the bandage in place 1-2 days after surgery. Lifting Restrictions: 20 pounds for 8 weeks. Additional Activity Instructions:: Climbing stairs is fine, walking is encouraged. Sitting in bed may be uncomfortable. Sitting up using your lateral muscles (sitting up sideways) is usually more comfortable. Do not drive, work heavy equipment of sign legal documents for 24 hours. If your hernia repair was an ingunial repair, you may have scrotal swelling, an ice pack and/or athletic support can provide more comfort. Pain medications may cause nausea, you should typically eat light foods as you take your pain medications. Pain medications may also cause constipation. If you have difficulty with this, discuss with your doctor. Call your doctor if your incision/area has: Continuous Slow Oozing, Sudden Increased Bleeding, Increased Pain/ Swelling, Increased Redness, Foul Smelling Discharge Call your doctor if you observe: Fever of 101 or Higher Suture Line Care: Avoid Pulling/Pushing, Avoid Pinching/Bending Additional Dressing/Incision Instructions:: Leave the operative bandage on for 2-3 days. When you remove the bandage, leave the steri-strips on place until y our follow up appointment or they fall off. Allergies/Adverse Reactions: Allergies atorvastatin [From Lipitor] Allergy (Mild, Verified 01/14/19 08:16) itching surgical tape Adverse Reaction (Uncoded 01/14/19 08:16) Rash Medications to take at Discharge Simvastatin 40 mg PO QHS 08/12/16 albuterol sulfate HFA 90 mcg/actuation aerosol inhaler 2 puff INHALATION Q4H PRN g 10/11/17 cholecalciferol (vitamin D3) 2,000 unit capsule 3,000 unit PO QDAY cap 10/11/17 estradiol 0.01% (0.1 mg/gram) vaginal cream 1 g VAGINAL 2XW PRN 10/11/17 levothyroxine 50 mcg tablet 88 mcg PO DAILY tab 06/06/18 Fluticasone Propionate 2 spr NASAL DAILY PRN 12/10/18 Pantoprazole Sodium [Protonix] 40 mg PO DAILY PRN 12/10/18 Metoprolol Tartrate [Lopressor (Beta Marisa)] 25 mg PO DAILY PRN 01/07/19 Oxycodone HCl/Acetaminophen [Percocet 5/325] 1 tab PO Q6H PRN PRN 7 Days #16 tab 01/15/19 The following prescriptions were given: Oxycodone HCl/Acetaminophen [Percocet 5/325] 1 tab PO Q6H PRN PRN 7 Days #16 tab PRN Reason: Pain Primary Care Physician: Hans Armenta III, MD [Primary Care Provider] - Test Results: Test results from this visit will be discussed in further detail at your follow- up appointment, if applicable. Please Follow Up With: Marvin Ford MD - [phone] When: Plan to have a follow up appointment in 7 days. Call to schedule.
--- NOTE | 2019-01-16 06:27 | PCM.DC.SUM ---
Discharge Date and Diagnosis Date of Admission: 01/14/19 Date of Discharge: 01/16/19 - Secondary Discharge Diagnosis Chronic Problems (Last Reviewed 01/15/19 @ 05:43 by Marvin Ford MD) History of hypothyroidism (Chronic) GERD (gastroesophageal reflux disease) (Chronic) Hypertension (Chronic) Hospital Course and Treatment Operations: herniorrhaphy Summary of Care Provided: The patient is a 68 year old F who had an incisional hernia in the midline from her previous sigmoid resection for diverticulitis. preoperative CT scan imaging estimated that the hernia was approximately 5 cm. the patient was brought for laparoscopic incisional hernia repair. She was found to have a larger defect than expected, many adhesions to the lower midline where the peritoneum was not covering the rectus muscle and additional ordering a left lower quadrant. Due to the increased complexity of her hernia repair the patient was admitted for postoperative pain control. She had improved pain control and was started on liquids and able to be discharged home on postoperative day 2. - Physical Exam Vital Signs Temp Pulse Resp BP Pulse Ox 98.3 F 74 16 138/69 H 95 01/16/19 01:52 01/16/19 01:52 01/16/19 01:52 01/16/19 01:52 01/16/19 01:52 Oxygen Flow Rate (L/min) 2 Oxygen Delivery Method Room Air Weight: 75.3 kg Body Mass Index (BMI) 28.5 Intake and Output for Last 24 Hours 01/14/19 01/15/19 01/16/19 23:59 23:59 23:59 Intake Total 2840 / 2840 2998 / 2998 834 / 834 Output Total 0 / 0 2150 / 2150 1100 / 1100 Balance 2840 / 2840 848 / 848 -266 / -266 Discharge Diet: Light diet - advance as tolerated, - - clears until passing flatus Discharge Activity: Return to Normal Activity, May Drive - when you are no longer taking narcotic pain medications., May Shower - with the bandage in place 1-2 days after surgery. Additional Activity Instructions:: Climbing stairs is fine, walking is encouraged. Sitting in bed may be uncomfortable. Sitting up using your lateral muscles (sitting up sideways) is usually more comfortable. Do not drive, work heavy equipment of sign legal documents for 24 hours. If your hernia repair was an ingunial repair, you may have scrotal swelling, an ice pack and/or athletic support can provide more comfort. Pain medications may cause nausea, you should typically eat light foods as you take your pain medications. Pain medications may also cause constipation. If you have difficulty with this, discuss with your doctor. Call your doctor if your incision/area has: Continuous Slow Oozing, Sudden Increased Bleeding, Increased Pain/ Swelling, Increased Redness, Foul Smelling Discharge Call your doctor if you observe: Fever of 101 or Higher Suture Line Care: Avoid Pulling/Pushing, Avoid Pinching/Bending Additional Dressing/Incision Instructions:: Leave the operative bandage on for 2-3 days. When you remove the bandage, leave the steri-strips on place until your follow up appointment or they fall off. Home Medications: Medications to take at Discharge Simvastatin 40 mg PO QHS 08/12/16 albuterol sulfate HFA 90 mcg/actuation aerosol inhaler 2 puff INHALATION Q4H PRN g 10/11/17 cholecalciferol (vitamin D3) 2,000 unit capsule 3,000 unit PO QDAY cap 10/11/17 estradiol 0.01% (0.1 mg/gram) vaginal cream 1 g VAGINAL 2XW PRN 10/11/17 levothyroxine 50 mcg tablet 88 mcg PO DAILY tab 06/06/18 Fluticasone Propionate 2 spr NASAL DAILY PRN 12/10/18 Pantoprazole Sodium [Protonix] 40 mg PO DAILY PRN 12/10/18 Metoprolol Tartrate [Lopressor (Beta Marisa)] 25 mg PO DAILY PRN 01/07/19 Oxycodone HCl/Acetaminophen [Percocet 5/325] 1 tab PO Q6H PRN PRN 7 Days #16 tab 01/15/19 Following Prescrptions Were Given to Patient: Oxycodone HCl/Acetaminophen [Percocet 5/325] 1 tab PO Q6H PRN PRN 7 Days #16 tab PRN Reason: Pain Primary Care Physician: Hans Armenta III, MD [Primary Care Provider] - Please Follow Up With: Marvin Ford MD - [phone] When: Plan to have a follow up appointment in 7 days. Call to schedule. Medical Necessity - Tobacco Use Smoking Status: Never smoker Tobacco Use: Non-smoker Meaningful Use Info Meaningful Use Diagnoses (Choose all that apply): None applicable
[2019-01-16 07:26] VITALS: BP 126/75; PULSE 64; RESP 18; TEMP 37.4; O2SAT 97
[2019-01-16] MEDS: oxyCODONE 5 MG Tablet PO (08:23)
[2019-01-16 09:30] VITALS: BP 126/75; PULSE 64; RESP 18; TEMP 37.4; O2SAT 97
--- NOTE | 2019-01-16 11:04 | CASEMGMT ---
ADA RUVALCABA attempted to complete GOFF with patient. Patient has been discharged and unable to complete GOFF.
== END 2019-01-16 09:30 | disposition home or self-care (01) ==
LOC: SDC 12:47
PROVIDERS: Admitting Provider Surgery; Family Provider Family Medicine; PCP Family Medicine; Referring Provider Surgery; Visit Provider Surgery
PROC: 0WQF4ZZ Repair Abdominal Wall, Percutaneous Endoscopic Approach (ICD-10-PCS; CPT 49655; principal; 2019-01-14 09:15)
DX: K43.0 Incisional hernia with obstruction, without gangrene (principal); E03.9 Hypothyroidism, unspecified; K21.9 Gastro-esophageal reflux disease without esophagitis; I10 Essential (primary) hypertension; Z79.899 Other long term (current) drug therapy; Z79.51 Long term (current) use of inhaled steroids; K44.9 Diaphragmatic hernia without obstruction or gangrene; G25.81 Restless legs syndrome
CPT/HCPCS: 49655; 88302; 96361; 96374; 96376; 99218; C1781; J7120; A4216; G0378; G0379; J2405

== ENCOUNTER → 2019-01-28 08:33 | Outpatient (CLI) | payer MEDICARE, OTHER, SELFPAY ==
[2019-01-14 16:05] VITALS: BMI 28.5
--- NOTE | 2019-01-28 08:34 | BI_ITS ---
MAMMOGRAPHY - BILATERAL SCREENING REASON FOR EXAM: Female, 68 years old. Routine annual screening examination. PERTINENT HISTORY: Non-contributory. TECHNIQUE: Digital bilateral breast josh (3D mammographic acquisition) in the CC and MLO projections. 2-D mediolateral oblique (MLO) and craniocaudad (CC) views of both breasts were obtained. CAD: Full Field Digital Mammography with Computer Added Detection was performed. COMPARISON: Comparison is made with prior study dated January 17, 2018 and December 24, 2016. FINDINGS: Breast Composition: The breasts are heterogeneously dense, which may obscure small masses. There are no dominant masses or suspicious calcifications. Stable small benign-appearing axillary lymph nodes. No other significant abnormalities are identified. There has been no significant change since the prior study. BI/SCREEN MAMM (CAD) W/JOSH BILAT IMPRESSION: Stable bilateral screening mammogram. Yearly follow-up mammogram recommended. (A) ASSESSMENT CATEGORY: BIRADS Category 2: Benign. A letter regarding these results will be sent to the patient by the facility within 30 days. Approximately 10% of breast cancers are not detected by mammography. A normal mammogram should not delay biopsy of a clinically suspicious abnormality. [id number] Electronically Signed: Felix Galeana, at 11:37 EDT , Service support ,
== END ==
PROVIDERS: Family Provider Family Medicine; PCP Family Medicine; Referring Provider Nurse Practitioner Women's Health; Visit Provider Nurse Practitioner Women's Health
DX: Z12.31 Encounter for screening mammogram for malignant neoplasm of breast (principal)
CPT/HCPCS: 77063; 77067

== ENCOUNTER 2019-05-09 07:52 | Emergency (ER) | payer MEDICARE, OTHER, SELFPAY ==
[2019-02-24 09:01] VITALS: BMI 28.5
[2019-05-09 07:53] VITALS: BP 169/80; PULSE 58; RESP 16; TEMP 36.6; O2SAT 98; BMI 27.4
--- NOTE | 2019-05-09 08:02 | CT_ITS ---
STUDY: CT ABDOMEN AND PELVIS WITH CONTRAST REASON FOR EXAM: Female, 69 years old. Right-sided abdominal pain since last night, nausea, history of hernia repair and partial colectomy RADIATION DOSAGE (If Supplied By Facility): CTDIvol = ( 18.33 ) mGy, DLP = ( 796.72 ) mGycm TECHNIQUE: Transaxial images were obtained from the dome of the diaphragm to the symphysis pubis with oral contrast. 100mL IV/Oral Isovue 300 was administered. Sagittal and coronal images were reconstructed. Individualized dose optimization techniques were used for this CT. COMPARISON: 02/08/2018, 08/12/2016 FINDINGS: The visualized lung bases are unremarkable. The visualized portions of the heart are within normal limits. Normal liver. The gallbladder surgically absent. Normal spleen. Normal pancreas. Normal bilateral adrenal glands. There are bilateral renal cysts. Intermediate density exophytic lesion in the posterior left kidney is grossly stable in size since 2015, suggesting benign/simple cyst. No hydronephrosis. Normal visualized stomach. Normal small intestine. Moderate fecal retention throughout the colon. Surgical anastomosis of the rectosigmoid colon identified. No colon wall thickening. There is non-visualization of the appendix. There is diffuse atherosclerotic calcification of the abdominal aorta, without a demonstrated aneurysm. Normal inferior vena cava. Normal retroperitoneum. Normal urinary bladder. There is absence of the uterus consistent with a prior hysterectomy. Operative changes of the anterior abdominal wall. There are diffuse degenerative changes of the visualized lumbar spine. CT/Abdomen/Pelvis WITH Contrast IMPRESSION: 1. No acute inflammatory process or bowel obstruction. 2. Cholecystectomy, appendectomy, hysterectomy, partial colectomy, operative changes of the anterior abdominal wall 3. Stable renal cysts. Electronically Signed: Nish Nagy MD ([place]) at 10:21 EDT , Service support ,
--- NOTE | 2019-05-09 08:03 | ED.VIS.GEN ---
History of Present Illness Chief Complaint: Abd Pain Informant: Patient, Family Onset: Yesterday Context: Gradual Onset Current Severity: Moderate Maximum Severity: Moderate Associated Symptoms: Nausea Narrative: Patient presents with right upper quadrant to periumbilical abdominal pain that started last evening. Pain was gradual in onset. She has had nausea but no vomiting. She has had decreased bowel movements over the past week. She denies fever or chills. She has had prior cholecystectomy, hysterectomy, partial colectomy. She had a hernia repair x2. Past Medical History - Allergies and Home Meds Allergies/Adverse Reactions: Allergies atorvastatin [From Lipitor] Allergy (Mild, Verified 05/09/19 07:53) itching surgical tape Adverse Reaction (Uncoded 05/09/19 07:53) Rash Primary Care Physician: Hans Armenta III, MD [Primary Care Provider] - Prior records reviewed: Yes Past Medical History: - - Reviewed Lives: Spouse/ Significant Other Smoking Status: Never smoker Review of Systems General: Denies: Chills, Fever Eyes: Denies: Visual changes - bilaterally ENT: Denies: Bilateral ear pain Cardiovascular: Denies: Chest pain Respiratory: Denies: Dyspnea, Cough Gastrointestinal: Reports: Abdominal pain, Nausea, Constipation. Denies: Vomiting Genitourinary: Denies: Dysuria Musculoskeletal: Denies: Back pain Skin: Denies: Wounds Neurological: Denies: Headache Endocrine: Denies: Polyuria, Polydipsia Hematologic: Denies: Easy bruising Allergy: Denies: Uticaria Physical Exam Vital Signs/Narrative: Vital Signs Temp Pulse Resp BP Pulse Ox 05/09/19 07:53 98 F 58 L 16 169/80 H 98 Inital Vital Signs reviewed: Yes General: Well nourished, Well developed Neck: Supple Cardiovascular: Regular rate, Regular rhythm Respiratory: No distress, CTA bilaterally Abdomen: Soft, Tender - Right upper quadrant and epigastric tenderness to palpation., Hypoactive bowel sounds. Negative for: Guarding, Rebound tenderness Back: Nontender Extremities: Nontender Skin: Normal color, No rash Neurological: Alert, Oriented x3 Psychological: Normal affect Diagnostic/Tx/Re-eval Impressions Abdomen/Pelvis CT 05/09/19 08:02 IMPRESSION: 1. No acute inflammatory process or bowel obstruction. 2. Cholecystectomy, appendectomy, hysterectomy, partial colectomy, operative changes of the anterior abdominal wall 3. Stable renal cysts. Electronically Signed: Nish Nagy MD ([place]) at 10:21 EDT , Service support , 05/09/19 08:02 Abdomen/Pelvis WITH Contrast [CT] Stat Laboratory Results 05/09/19 05/09/19 05/09/19 08:10 08:10 08:10 WBC 4.6 RBC 5.61 H Hgb 16.9 H Hct 51.3 H MCV 91.4 MCH 30.1 MCHC 32.9 RDW Std Deviation 43.5 RDW Coeff of Quynh 12.8 Plt Count 115 L MPV 10.8 Immature Gran % (Auto) 0.400 Neut % (Auto) 62.0 Lymph % (Auto) 22.9 Dubois % (Auto) 10.6 H Eos % (Auto) 3.7 Baso % (Auto) 0.4 Absolute Neuts (auto) 2.9 Absolute Lymphs (auto) 1.06 Nucleated RBC % 0 Sodium 141 Potassium 4.1 Chloride 109 H Carbon Dioxide 28.0 Anion Gap 4 L BUN 20 H Creatinine 0.93 Estim Creat Clear Calc 49.99 Est GFR (MDRD) Af Amer 77 Est GFR (MDRD) Non-Af 64 BUN/Creatinine Ratio 21.6 H Glucose 112 H Calcium 9.9 Total Bilirubin 0.40 Direct Bilirubin 0.10 AST 10 L ALT 23 Alkaline Phosphatase 121 H Troponin I < 0.015 Total Protein 7.3 Albumin 4.1 Globulin 3.2 Lipase 138 Urine Color Urine Clarity Urine pH Ur Specific [place] Urine Protein Urine Glucose (UA) Urine Ketones Urine Occult Blood Urine Nitrite Urine Bilirubin Urine Urobilinogen Ur Leukocyte Esterase Urine RBC Urine WBC Ur Squamous Epith Cells Urine Bacteria Urine Mucus 05/09/19 08:52 WBC RBC Hgb Hct MCV MCH MCHC RDW Std Deviation RDW Coeff of Quynh Plt Count MPV Immature Gran % (Auto) Neut % (Auto) Lymph % (Auto) Dubois % (Auto) Eos % (Auto) Baso % (Auto) Absolute Neuts (auto) Absolute Lymphs (auto) Nucleated RBC % Sodium Potassium Chloride Carbon Dioxide Anion Gap BUN Creatinine Estim Creat Clear Calc Est GFR (MDRD) Af Amer Est GFR (MDRD) Non-Af BUN/Creatinine Ratio Glucose Calcium Total Bilirubin Direct Bilirubin AST ALT Alkaline Phosphatase Troponin I Total Protein Albumin Globulin Lipase Urine Color Straw Urine Clarity Clear Urine pH 7.0 Ur Specific [place] 1.005 Urine Protein Negative Urine Glucose (UA) Normal Urine Ketones Negative Urine Occult Blood Negative Urine Nitrite Negative Urine Bilirubin Negative Urine Urobilinogen Normal Ur Leukocyte Esterase 25 H Urine RBC 0 SEEN Urine WBC 0-5 SEEN Ur Squamous Epith Cells 0-5 SEEN Urine Bacteria 0 SEEN Urine Mucus 0 SEEN - EKG Initial EKG Interpretation: Sinus Rhythm - Sinus at 79. No acute ischemia. - Medical Decision Making Patient presents with nausea and epigastric tenderness on exam. She has had multiple prior abdominal surgeries. She is given morphine and Zofran. Patient states her pain increased after drinking the p.o. contrast and she feels like there is a tight band around her chest. Troponin and EKG are unremarkable. CT results are discussed with the patient. On my review I think it looks as if the duodenum wall is thickened. I spoke with Dr. Ford who reviewed the images and he agrees. He asked that we ensure the patient is on a PPI and have her follow-up in the office next week. He will plan to do a upper scope to further evaluate this. This is been discussed with the patient and they are in agreement. ED Disposition - Plan for ED Patient: Disposition: Home or Assisted Living Diagnosis: Duodenitis Instructions: Duodenitis Prescriptions: Ondansetron [Zofran Odt] 4 mg PO Q8H PRN PRN #10 tablet PRN Reason: Nausea Referrals: Marvin Ford MD [STAFF PHYSICIAN] - 5-7 Days
[2019-05-09] MEDS: Ondansetron 4 MG/2 ML Vial IV ×2 (08:15→09:24)
[2019-05-09] MEDS: Morphine 4 MG/ML Syringe IV ×2 (08:15→09:24)
[2019-05-09] MEDS: 0.9% Normal Saline 1,000 ML 150 ML IV (08:18)
[2019-05-09 08:19] LABS: Absolute Lymphocyte Count 1.06 X10^3/uL (0.83-4.51); Absolute Neutrophil Count 2.9 X10^3/uL (2.0-7.7); Basophil# 0.02 X10^3/uL; Basophil% 0.4 % (0-1); Eosinophil# 0.17 X10^3/uL; Eosinophils% 3.7 % (0-5); Hematocrit 51.3 % (37-47); Hemoglobin 16.9 g/dL (12.0-15.0); Lymphocyte # 1.06 X10^3/ul (4.0); Lymphocyte % 22.9 % (19-41); Mean Corp Hgb Conc 32.9 g/dL (32-36); Mean Corpuscular Hgb 30.1 pg (27.0-32.0); Mean Corpuscular Volume 91.4 fL (81-99); Mean Platelet Vol. 10.8 fl (6.2-12.0); Monocyte# 0.49 X10^3/uL; Monocyte% 10.6 % (0-10); NRBC Flagged by Analyzer 0 % (0-5); Neutrophil # 2.87 X10^3/uL (2.7-7.7); Platelet Count 115 K/mm3 (150-450); RBC Distribution Width CV 12.8 % (11.6-14.6); RBC Distribution Width SD 43.5 fl (35.1-43.9); Red Blood Count 5.61 M/mm3 (4.2-5.4); White Blood Count 4.6 K/mm3 (4.4-11.0)
[2019-05-09 08:33] LABS: AST(SGOT) 10 U/L (15-37); Alanine Aminotransfer ALT/SGPT 23 U/L (13-56); Albumin, Serum 4.1 g/dL (3.2-5.0); Alkaline Phosphatase 121 U/L (45-117); Anion Gap 4 (5-15); BUN 20 mg/dL (7-18); BUN/Creat Ratio 21.6 RATIO (10-20); Calcium,Total 9.9 mg/dL (8.5-10.1); Chloride 109 mmol/L (98-107); Creatinine, Serum 0.93 mg/dL (0.55-1.02); EST Glomerular Filtration Rate 64 mL/min (>60); Est Glom Filt Rate - Afr Amer 77 mL/min (>60); Estimated Creatinine Clearance 49.99 ml/min; Globulin 3.2 g/dL (2.2-4.2); Glucose 112 mg/dL (74-106); Lipase 138 U/L (73-393); Potassium 4.1 mmol/L (3.5-5.1); Protein, Total 7.3 g/dL (6.4-8.2); Sodium Level 141 mmol/L (136-145)
--- NOTE | 2019-05-09 09:15 | EKG12_ITS ---
Test Reason : CP Blood Pressure : / mmHG Vent. Rate : 079 BPM Atrial Rate : 079 BPM P-R Int : 172 ms QRS Dur : 072 ms QT Int : 412 ms P-R-T Axes : 060 -24 052 degrees QTc Int : 472 ms Sinus rhythm with marked sinus arrhythmia Low voltage QRS Borderline ECG Confirmed by GILA BONE, BERNARDO ([id number]), editor producer TIMI CROSS ([id number]) on 05/11/2019 1:41:20 PM Referred By: VANIA Confirmed By:BERNARDO URIOSTEGUI MD
[2019-05-09 09:22] LABS: Bacteria 0 SEEN /hpf (None Seen); Mucous, Urine 0 SEEN /hpf (<or=2+); Red Blood Cells-Urine 0 SEEN /hpf (0-5)
[2019-05-09 10:02] VITALS: BP 125/73; PULSE 63; RESP 15; O2SAT 100
[2019-05-09] MEDS: HYDROmorphone 0.5 MG/0.5 ML SYRINGE IV (10:06)
[2019-05-09 10:19] LABS: Color, Urine Straw (Yellow); Glucose, Dipstick Normal (Normal); Ketone-Dipstick Negative (Negative); Leukocyte Esterase-Dipstick 25 /ul (Negative); Nitrite-Dipstick Negative (Negative); Occult Blood-Urine Negative /ul (Negative); Protein-Dipstick Negative (Negative); Specific Gravity, Urine 1.005 (1.002-1.030); Urine Bilirubin Dipstick Negative (Negative); Urine Clarity Clear (Clear); Urine Urobilinogen Normal (Normal)
[2019-05-09 10:20] LABS: Squamous Epithelial Cells - UA 0-5 SEEN /hpf (5-10); White Blood Cells 0-5 SEEN /hpf (0-5)
[2019-05-09 11:11] VITALS: BP 129/68; PULSE 63; RESP 18; O2SAT 99
== END 2019-05-09 11:12 | disposition home or self-care (01) ==
PROVIDERS: Emergency Provider Emergency Medicine; Family Provider Family Medicine; PCP Family Medicine
DX: K29.80 Duodenitis without bleeding (principal); N28.1 Cyst of kidney, acquired; Z90.49 Acquired absence of other specified parts of digestive tract; Z90.710 Acquired absence of both cervix and uterus
CPT/HCPCS: 74177; 80048; 80076; 81001; 83690; 84484; 85025; 93005; 96361; 96365; 96375; 96376; 99282; J7030; Q9967; J2405

== ENCOUNTER 2019-12-23 01:50 | Emergency (ER) | payer MEDICARE, OTHER, SELFPAY ==
[2019-12-23 01:51] VITALS: BP 157/90; PULSE 90; RESP 16; TEMP 36.6; O2SAT 98; BMI 27.0
--- NOTE | 2019-12-23 02:03 | RAD_ITS ---
STUDY: X-RAY - ABDOMEN/PELVIS REASON FOR EXAM: Female, 69 years old. Pain. TECHNIQUE: Single AP view of the abdomen / pelvis. COMPARISON: 10/18/2017. FINDINGS: Lung bases not included in the [id number]. There is an unremarkable bowel gas pattern. There is no demonstrated free abdominal air. Radiopaque rings projecting over the anterior abdomen consistent with hernia repair. The visualized liver, spleen and kidneys are grossly normal in size and morphology. Normal soft tissue structures. Normal visualized osseous structures. RAD/Abdomen Single View (Portable) IMPRESSION: Status post hernia repair. Nonspecific gas pattern. Electronically Signed: Rola Glover MD at 2:40 EDT , Service support ,
--- NOTE | 2019-12-23 02:04 | ED.DCSUM_ITS ---
- ER Visit Summary Date of Service: 12/23/19 Chief Complaint: Aute on chronic abdominal pain History of Present Illness: The patient is a 69 F history of high cholesterol, low platelets, renal cysts and multiple prior abdominal surgeries including appendectomy, cholecystectomy, hysterectomy, partial colectomy and hernia repair with takedown of adhesions. Patient's had chronic intermittent abdominal pain for months. She had a recent MRI at the [facility] and is following up with her general surgeon Dr. Charly Ford within a week. States that she does have abdominal discomfort tonight. Denies nausea, vomiting or diarrhea. She has had some mild constipation. Denies any fever or chills. No dysuria. Physical Examination: Older female no acute distress vital signs are stable afebrile. Currently she is comfortable. H EENT exam unremarkable. Moist with membranes. Neck nontender. Lungs clear to auscultation bilaterally. Heart regular rhythm no murmur. Abdomen soft. Nondistended. Normal bowel sounds. No peritoneal signs. No significant tenderness. Both the right upper and right lower quadrants are unremarkable. No obvious hernia or mass. No obvious signs of obstruction. Patient moving all 4 extremities. No edema. Neurologically she is awake and alert. No focal motor deficits. Back nontender. Test Results: Single view KUB x-ray shows no acute abnormality. Increased stool. No obstruction. No dilated bowel. CBC shows a white count of 6. Hemoglobin 16. Patient has chronic thrombocytopenia and has a platelet count of 126,000. That is her baseline. Chemistries unremarkable normal creatinine and gap. Liver enzymes unremarkable. Lipase normal at 96. Repeat exam patient is doing well at 3:06 AM. Abdomen is benign. She denies discussed test results and outpatient follow-up. Emergency Department Course and Treatment: Older female with multiple prior abdominal surgeries. Most likely has adhesions. Her pain tonight is nonspecific location and currently is very mild. Clinically I do not think she has an obstruction. This may be secondary just constipation. Screening labs and a KUB will be obtained. She currently does not need anything for pain or nausea. Treatment Plan: Plenty of fluids. Plenty of fruits, vegetables and fiber. Stool softener help with constipation. Follow-up with her scheduled appointment to see her general surgeon. Disposition: Discharge Impression: Acute on chronic abdominal pain of uncertain etiology This note was generated with [employer] software. It may contain incorrect words, spelling, and punctuation that were not noted in review of the chart prior to signing ED Disposition - Plan for ED Patient: Disposition: Home or Assisted Living Instructions: ABDOMINAL PAIN, Unknown Cause, (Female) Referrals: Hans Armenta III, MD [Primary Care Provider] - As Needed Marvin Ford MD [STAFF PHYSICIAN] - Keep Catherine appointment Additional Instructions: Plenty of fluids and rest. Make sure you are taking plenty of fruits, vegetables and fiber. May need a stool softener to help with the constipation.
--- NOTE | 2019-12-23 02:07 | ED.DEP ---
ED Disposition - Plan for ED Patient: Disposition: Home or Assisted Living Instructions: ABDOMINAL PAIN, Unknown Cause, (Female) Referrals: Hans Armenta III, MD [Primary Care Provider] - As Needed Marvin Ford MD [STAFF PHYSICIAN] - Keep Catherien appointment Additional Instructions: Plenty of fluids and rest. Make sure you are taking plenty of fruits, vegetables and fiber. May need a stool softener to help with the constipation.
[2019-12-23 02:10] LABS: Absolute Lymphocyte Count 1.94 X10^3/uL (0.83-4.51); Absolute Neutrophil Count 3.2 X10^3/uL (2.0-7.7); Basophil# 0.04 X10^3/uL; Basophil% 0.6 % (0-1); Eosinophil# 0.22 X10^3/uL; Eosinophils% 3.5 % (0-5); Hematocrit 48.9 % (37-47); Hemoglobin 16.5 g/dL (12.0-15.0); Lymphocyte # 1.94 X10^3/ul (4.0); Lymphocyte % 31.1 % (19-41); Mean Corp Hgb Conc 33.7 g/dL (32-36); Mean Corpuscular Hgb 30.4 pg (27.0-32.0); Mean Corpuscular Volume 90.1 fL (81-99); Monocyte# 0.86 X10^3/uL; Monocyte% 13.8 % (0-10); NRBC Flagged by Analyzer 0 % (0-5); Neutrophil # 3.17 X10^3/uL (2.7-7.7); Neutrophil % 50.8 % (47-70); Platelet Count 126 K/mm3 (150-450); RBC Distribution Width CV 12.4 % (11.6-14.6); Red Blood Count 5.43 M/mm3 (4.2-5.4); White Blood Count 6.2 K/mm3 (4.4-11.0)
[2019-12-23 03:02] LABS: ALB/GLOB Ratio 1.2 RATIO (0.9-2.4); AST(SGOT) 19 U/L (15-37); Alanine Aminotransfer ALT/SGPT 20 U/L (13-56); Albumin, Serum 3.8 g/dL (3.2-5.0); Alkaline Phosphatase 120 U/L (45-117); Anion Gap 8 (5-15); BUN 17 mg/dL (7-18); Calcium,Total 9.8 mg/dL (8.5-10.1); Chloride 109 mmol/L (98-107); Creatinine, Serum 0.94 mg/dL (0.55-1.02); EST Glomerular Filtration Rate 63 mL/min (>60); Est Glom Filt Rate - Afr Amer 76 mL/min (>60); Estimated Creatinine Clearance 47.38 ml/min; Globulin 3.3 g/dL (2.2-4.2); Glucose 100 mg/dL (74-106); Lipase 96 U/L (73-393); Potassium 3.8 mmol/L (3.5-5.1); Protein, Total 7.1 g/dL (6.4-8.2); Sodium Level 143 mmol/L (136-145)
== END 2019-12-23 03:17 | disposition home or self-care (01) ==
LOC: ED 02:21
PROVIDERS: Emergency Provider Emergency Medicine; PCP Family Medicine
DX: R10.9 Unspecified abdominal pain (principal); G89.29 Other chronic pain; E78.00 Pure hypercholesterolemia, unspecified; D69.6 Thrombocytopenia, unspecified; K59.00 Constipation, unspecified; Z90.49 Acquired absence of other specified parts of digestive tract; Z98.890 Other specified postprocedural states; Z90.710 Acquired absence of both cervix and uterus
CPT/HCPCS: 74018; 80053; 83690; 85025; 99284; A4216

== ENCOUNTER → 2020-02-02 07:30 | Outpatient (CLI) | payer MEDICARE, OTHER, SELFPAY ==
--- NOTE | 2020-02-02 07:31 | BI_ITS ---
MAMMOGRAPHY - BILATERAL SCREENING REASON FOR EXAM: Female, 69 years old. Routine annual screening examination. PERTINENT HISTORY: Non-contributory. TECHNIQUE: Digital bilateral breast josh (3D mammographic acquisition) in the CC and MLO projections. 2-D mediolateral oblique (MLO) and craniocaudad (CC) views of both breasts were obtained. CAD: Full Field Digital Mammography with Computer Added Detection was performed. COMPARISON: Comparison is made with prior study dated January 28, 2019 and January 17, 2018. FINDINGS: Breast Composition: The breasts are heterogeneously dense, which may obscure small masses. There are no dominant masses or suspicious calcifications. Stable benign-appearing bilateral axillary lymph nodes. No other significant abnormalities are identified. There has been no significant change since the prior study. BI/SCREEN MAMM (CAD) W/JOSH BILAT IMPRESSION: Stable bilateral screening mammogram. Yearly follow-up mammogram recommended. (A) ASSESSMENT CATEGORY: BIRADS Category 2: Benign. A letter regarding these results will be sent to the patient by the facility within 30 days. Approximately 10% of breast cancers are not detected by mammography. A normal mammogram should not delay biopsy of a clinically suspicious abnormality. [id number] Electronically Signed: Felix Galeana, at 8:29 EDT , Service support ,
== END ==
PROVIDERS: Family Provider Family Medicine; PCP Family Medicine; Referring Provider Nurse Practitioner Women's Health; Visit Provider Nurse Practitioner Women's Health
DX: Z12.31 Encounter for screening mammogram for malignant neoplasm of breast (principal)
CPT/HCPCS: 77063; 77067

== ENCOUNTER → 2020-05-10 15:00 | Outpatient (CLI) | payer MEDICARE, OTHER, SELFPAY ==
[2020-02-29 08:16] VITALS: BMI 27.0
== END ==
PROVIDERS: PCP Family Medicine; Referring Provider Otolaryngology Otolaryngology/Facial Plastic Surgery; Visit Provider Otolaryngology Otolaryngology/Facial Plastic Surgery
DX: J32.9 Chronic sinusitis, unspecified (principal)
CPT/HCPCS: 87070; 87205

== ENCOUNTER → 2020-09-27 09:47 | Outpatient (CLI) | payer MEDICARE, OTHER, SELFPAY ==
[2020-02-29 08:16] VITALS: BMI 27.0
--- NOTE | 2020-09-27 09:49 | RAD_ITS ---
STUDY: SMALL BOWEL FOLLOW-THROUGH. REASON FOR EXAM: Female, 70 years old. ERIUMBILICAL PAIN X COUPLE OF MONTHS. COSTIPATION HX OF 2 HERNIA REPAIR, COLON RESECTION-SIGMOID. NO HX OF CA. TECHNIQUE: Multiple views of the abdomen were performed after barium ingestion fluoroscopic examination of the terminal ileal loop is also performed with multiple spot views were obtained COMPARISON: None. FINDINGS: Tail End Rider view: The bowel gas pattern is unremarkable there is no evidence of free air in the abdomen. Small bowel follow-through: Normal progression of barium is seen throughout different parts of the small bowel the cecum is reached at approximately 60 minutes after barium ingestion. The duodenum, jejunum, and ileum mucosal pattern is unremarkable. Fluoroscopic examination of the terminal loop shows no abnormality. RAD/Small Bowel Series Only IMPRESSION: Unremarkable study. Electronically Signed: Edith Galan, at 14:26 EST Tel , Service support ,
== END ==
PROVIDERS: PCP Family Medicine; Referring Provider Nurse Practitioner Adult Health; Visit Provider Nurse Practitioner Adult Health
DX: R10.33 Periumbilical pain (principal)
CPT/HCPCS: 74250

== ENCOUNTER 2020-10-24 19:08 | Emergency (ER) | payer MEDICARE, OTHER, SELFPAY ==
[2020-02-29 08:16] VITALS: BMI 27.0
[2020-10-24 19:09] VITALS: BP 142/106; PULSE 100; RESP 18; TEMP 36.1; O2SAT 97; BMI 27.6
--- NOTE | 2020-10-24 20:01 | ED.VIS.GEN ---
History of Present Illness Chief Complaint: Abd Pain Informant: Patient Onset: Weeks Context: Gradual Onset Timing: Waxes and wanes Current Severity: Moderate Maximum Severity: Moderate Narrative: Patient presents secondary to abdominal pain. She points to the supra pubic periumbilical region and describing her area of pain. Pain is been ongoing for the past couple of weeks. She does have a history of chronic abdominal pain secondary to multiple prior abdominal surgeries. She states she had an upper GI here recently that looked okay. She states she has been urinating normally but has had some constipation. She is not currently anything for pain at home. She did take Tylenol earlier today. She denies fever or chills. No urinary symptoms. - Past Medical History (1) GERD (gastroesophageal reflux disease) Status: Chronic (2) History of hypothyroidism Status: Chronic (3) Hypertension Status: Chronic (4) Diverticulosis Status: Chronic (5) IBS (irritable bowel syndrome) Status: Resolved Past Medical History - Allergies and Home Meds Allergies/Adverse Reactions: Allergies atorvastatin [From Lipitor] Allergy (Mild, Verified 10/24/20 20:11) itching surgical tape Adverse Reaction (Uncoded 10/24/20 20:11) Rash Primary Care Physician: Hans Armenta III, MD [Primary Care Provider] - Prior records reviewed: Yes Surgical History: appendectomy, cholecystectomy, colectomy, hysterectomy Smoking Status: Never smoker Review of Systems General: Denies: Chills, Fever Eyes: Denies: Visual changes - bilaterally ENT: Denies: Bilateral ear pain Cardiovascular: Denies: Chest pain Respiratory: Denies: Dyspnea, Cough Gastrointestinal: Reports: Abdominal pain, Constipation. Denies: Vomiting, Diarrhea Genitourinary: Denies: Dysuria, Frequency Musculoskeletal: Denies: Swelling, Extremity Pain Skin: Denies: Rash Neurological: Denies: Headache Hematologic: Denies: Easy bruising Allergy: Denies: Uticaria Physical Exam Vital Signs/Narrative: Vital Signs Temp Pulse Resp BP Pulse Ox 10/24/20 19:09 96.9 F L 100 18 142/106 H 97 Inital Vital Signs reviewed: Yes General: Well nourished, Well developed Head: Normocephalic ENT: Moist mucous membranes Neck: Supple Cardiovascular: Regular rate, Regular rhythm Respiratory: No distress, CTA bilaterally Abdomen: Soft, Tender - Mild suprapubic tenderness to palpation., Hypoactive bowel sounds. Negative for: Guarding, Rebound tenderness Extremities: Nontender Skin: Normal color Neurological: Alert, Oriented x3 Psychological: Normal affect Diagnostic/Tx/Re-eval Impressions Acute Abdomen Series 10/24/20 20:34 IMPRESSION: Nonspecific abdomen. Electronically Signed: Ej Nguyen MD at 21:09 EST , Service support , 10/24/20 20:34 Acute Abdomen Inc Chest [RAD] Stat Laboratory Results 10/24/20 10/24/20 10/24/20 19:23 19:23 20:45 WBC 5.8 RBC 5.33 Hgb 16.2 H Hct 48.1 H MCV 90.2 MCH 30.4 MCHC 33.7 RDW Std Deviation 41.6 RDW Coeff of Quynh 12.6 Plt Count 114 L MPV 10.7 Immature Gran % (Auto) 0.200 Neut % (Auto) 64.3 Lymph % (Auto) 20.2 [place] % (Auto) 11.1 H Eos % (Auto) 3.7 Baso % (Auto) 0.5 Absolute Neuts (auto) 3.7 Absolute Lymphs (auto) 1.16 Nucleated RBC % 0 Sodium 143 Potassium 3.5 Chloride 108 H Carbon Dioxide 28.0 Anion Gap 7 BUN 16 Creatinine 0.93 Estim Creat Clear Calc 49.30 Est GFR (MDRD) Af Amer 77 Est GFR (MDRD) Non-Af 64 BUN/Creatinine Ratio 17.3 Glucose 108 H Calcium 10.2 H Total Bilirubin 0.30 Direct Bilirubin 0.09 AST 12 L ALT 25 Alkaline Phosphatase 121 H Total Protein 7.1 Albumin 3.8 Globulin 3.3 Urine Color Straw Urine Clarity Clear Urine pH 7.0 Ur Specific [place] 1.010 Urine Protein Negative Urine Glucose (UA) Normal Urine Ketones Negative Urine Occult Blood Negative Urine Nitrite Negative Urine Bilirubin Negative Urine Urobilinogen Normal Ur Leukocyte Esterase 500 H Urine RBC 0 SEEN Urine WBC 5-10 SEEN Ur Squamous Epith Cells 0-5 SEEN Urine Bacteria RARE Urine Mucus 0 SEEN - Medical Decision Making Patient was given Bentyl here for pain. Abdominal series x-rays are obtained. Per my interpretation no sign of obstruction. She does have increased stool specimen the right upper quadrant. Radiologist interpretation is reviewed. Test results discussed with the patient. Blood work is unremarkable. Urinalysis does show sign of infection with 500 leukocyte esterase and 5-10 white cells. Patient is pointing to the suprapubic region and describing her area of pain. I think it is worth 3 days of antibiotics to see if this does not prove her symptoms. Urine culture will also be sent. This is all discussed with the patient she is in agreement with the plan. ED Disposition - Plan for ED Patient: Disposition: Home or Assisted Living Diagnosis: Abdominal pain, UTI (urinary tract infection) Instructions: ED Bladder Infection, Female (Adult) Prescriptions: Smz/Tmp Ds [Bactrim Ds] 1 tab PO BID #6 tab Transmission Status: Pending to [id number] Referrals: Hans Armenta III, MD [Primary Care Provider] - 1 Week if not improving
[2020-10-24 20:02] LABS: Absolute Lymphocyte Count 1.16 X10^3/uL (0.83-4.51); Absolute Neutrophil Count 3.7 X10^3/uL (2.0-7.7); Basophil# 0.03 X10^3/uL; Basophil% 0.5 % (0-1); Eosinophil# 0.21 X10^3/uL; Eosinophils% 3.7 % (0-5); Hematocrit 48.1 % (37-47); Hemoglobin 16.2 g/dL (12.0-15.0); Lymphocyte # 1.16 X10^3/ul (4.0); Lymphocyte % 20.2 % (19-41); Mean Corp Hgb Conc 33.7 g/dL (32-36); Mean Corpuscular Hgb 30.4 pg (27.0-32.0); Mean Corpuscular Volume 90.2 fL (81-99); Mean Platelet Vol. 10.7 fl (6.2-12.0); Monocyte# 0.64 X10^3/uL; Monocyte% 11.1 % (0-10); NRBC Flagged by Analyzer 0 % (0-5); Neutrophil % 64.3 % (47-70); Platelet Count 114 K/mm3 (150-450); RBC Distribution Width CV 12.6 % (11.6-14.6); RBC Distribution Width SD 41.6 fl (35.1-43.9); Red Blood Count 5.33 M/mm3 (4.2-5.4); White Blood Count 5.8 K/mm3 (4.4-11.0)
[2020-10-24] MEDS: Dicyclomine 10 MG Capsule 20 MG PO (20:08)
[2020-10-24 20:12] LABS: AST(SGOT) 12 U/L (15-37); Alanine Aminotransfer ALT/SGPT 25 U/L (13-56); Albumin, Serum 3.8 g/dL (3.2-5.0); Alkaline Phosphatase 121 U/L (45-117); Anion Gap 7 (5-15); BUN 16 mg/dL (7-18); BUN/Creat Ratio 17.3 RATIO (10-20); Bilirubin, Direct 0.09 mg/dL (0.00-0.30); Calcium,Total 10.2 mg/dL (8.5-10.1); Chloride 108 mmol/L (98-107); Creatinine, Serum 0.93 mg/dL (0.55-1.02); EST Glomerular Filtration Rate 64 mL/min (>60); Est Glom Filt Rate - Afr Amer 77 mL/min (>60); Globulin 3.3 g/dL (2.2-4.2); Glucose 108 mg/dL (74-106); Potassium 3.5 mmol/L (3.5-5.1); Protein, Total 7.1 g/dL (6.4-8.2); Sodium Level 143 mmol/L (136-145)
--- NOTE | 2020-10-24 20:34 | RAD_ITS ---
STUDY: X-RAY - ACUTE ABDOMINAL SERIES REASON FOR EXAM: Female, 70 years old. Chronic abdominal pain x several weeks. TECHNIQUE: Single view of the chest. Supine, and upright view(s) of the abdomen were obtained. COMPARISON: None. FINDINGS: The lungs are clear and expanded. Normal size heart. Normal mediastinum and edel. Normal visualized pulmonary arteries. Normal visualized aortic arch and descending thoracic aorta. Postsurgical changes are noted. No evidence for small bowel obstruction.. Residual contrast noted within the colon The soft tissue structures of the abdomen and pelvis are unremarkable. Lumbar spine demonstrates degenerative change RAD/Acute Abdomen Inc Chest IMPRESSION: Nonspecific abdomen. Electronically Signed: Ej Nguyen MD at 21:09 EST , Service support ,
[2020-10-24] MEDS: 0.9% Normal Saline 1,000 ML 150 ML IV (20:46)
[2020-10-24 20:54] LABS: Mucous, Urine 0 SEEN /hpf (<or=2+); Red Blood Cells-Urine 0 SEEN /hpf (0-5)
[2020-10-24 20:59] LABS: Color, Urine Straw (Yellow); Glucose, Dipstick Normal (Normal); Ketone-Dipstick Negative (Negative); Leukocyte Esterase-Dipstick 500 /ul (Negative); Nitrite-Dipstick Negative (Negative); Occult Blood-Urine Negative /ul (Negative); Protein-Dipstick Negative (Negative); Urine Bilirubin Dipstick Negative (Negative); Urine Clarity Clear (Clear); Urine Urobilinogen Normal (Normal)
[2020-10-24 21:06] LABS: Squamous Epithelial Cells - UA 0-5 SEEN /hpf (5-10); White Blood Cells 5-10 SEEN /hpf (0-5)
[2020-10-24 21:07] LABS: Bacteria RARE /hpf (None Seen)
[2020-10-24] MEDS: Smz/Tmp Ds Tablet 1 TABLET PO (21:33)
[2020-10-24 21:35] VITALS: BP 138/89; PULSE 83; RESP 16; O2SAT 98
== END 2020-10-24 21:36 | disposition home or self-care (01) ==
PROVIDERS: Emergency Provider Emergency Medicine; PCP Family Medicine
DX: R10.9 Unspecified abdominal pain (principal); N39.0 Urinary tract infection, site not specified; K21.9 Gastro-esophageal reflux disease without esophagitis; E03.9 Hypothyroidism, unspecified; I10 Essential (primary) hypertension; K58.9 Irritable bowel syndrome, unspecified; G89.29 Other chronic pain; Z90.49 Acquired absence of other specified parts of digestive tract; Z90.710 Acquired absence of both cervix and uterus
CPT/HCPCS: 74022; 80048; 80076; 81001; 85025; 87086; 87088; 96360; 96361; 99284; J7030; A4216

== ENCOUNTER → 2020-12-01 13:23 | Outpatient (CLI) | payer MEDICARE, OTHER, SELFPAY | PROVIDERS: PCP Family Medicine; Referring Provider Urology; Visit Provider Urology | DX: R39.15 Urgency of urination (principal) | CPT/HCPCS: 87086; 87088 ==

== ENCOUNTER → 2020-12-06 16:06 | Outpatient (CLI) | payer MEDICARE, OTHER, SELFPAY | PROVIDERS: PCP Family Medicine; Referring Provider Nurse Practitioner Adult Health; Visit Provider Nurse Practitioner Adult Health | DX: R10.9 Unspecified abdominal pain (principal) | CPT/HCPCS: 87086; 87088 ==

== ENCOUNTER → 2021-02-02 09:52 | Outpatient (CLI) | payer MEDICARE, OTHER, SELFPAY ==
[2020-12-15 15:22] VITALS: BMI 27.9
--- NOTE | 2021-02-02 09:55 | BI_ITS ---
MAMMOGRAPHY - BILATERAL SCREENING REASON FOR EXAM: Female, 70 years old. Routine annual screening examination. PERTINENT HISTORY: Non-contributory. TECHNIQUE: Digital bilateral breast josh (3D mammographic acquisition) in the CC and MLO projections. 2-D mediolateral oblique (MLO) and craniocaudad (CC) views of both breasts were obtained. CAD: Full Field Digital Mammography with Computer Added Detection was performed. COMPARISON: Comparison is made with prior study dated 02/02/2020 and 01/28/2019. FINDINGS: Breast Composition: The breasts are heterogeneously dense, which may obscure small masses. There are no dominant masses or suspicious calcifications. Stable benign-appearing bilateral axillary lymph nodes. No other significant abnormalities are identified. There has been no significant change since the prior study. BI/SCRN MAMM (CAD)W/JOSH BILAT IMPRESSION: Stable bilateral screening mammogram. Yearly follow-up mammogram recommended. (A) ASSESSMENT CATEGORY: BIRADS Category 2: Benign. A letter regarding these results will be sent to the patient by the facility within 30 days. Approximately 10% of breast cancers are not detected by mammography. A normal mammogram should not delay biopsy of a clinically suspicious abnormality. [id number] Electronically Signed: Felix Galeana MD at 10:47 EDT , Service support ,
== END ==
PROVIDERS: PCP Family Medicine; Referring Provider Nurse Practitioner Women's Health; Visit Provider Nurse Practitioner Women's Health
DX: Z12.31 Encounter for screening mammogram for malignant neoplasm of breast (principal)
CPT/HCPCS: 77063; 77067

== ENCOUNTER 2021-03-27 09:41 | Emergency (ER) | payer MEDICARE, OTHER, SELFPAY ==
[2020-12-15 15:22] VITALS: BMI 27.9
[2021-03-27 09:41] VITALS: BP 142/93; PULSE 79; RESP 16; TEMP 36.3; O2SAT 96; BMI 27.5
--- NOTE | 2021-03-27 10:50 | EDS_ITS ---
HPI HPI - GI History of Present Illness Chief Complaint: Back Narrative Narrative: 70-year-old female presenting with right flank pain. She states is been going on intermittently for about a month. She also complains of some intermittent nausea. She describes it as sharp and wrapping around the right flank. She does not have a gallbladder. Patient denies fever or chills. She was seen by the nurse practitioner at [facility] who felt it was just back pain and did not do any imaging. Patient also is complaining of her feet looking purple when she hangs her leg down too long or sits too long. She was seen by the nurse practitioner including clinic for this as well. He did to D- dimers and one of them was negative and one of them was positive. Patient had ultrasounds of the lower extremities which were negative. Patient describes tingling in her feet at times. She is able to ambulate. She does not have any claudication symptoms. PFSH PFS Medical History Abdominal pain Cyst of left kidney Diverticulosis Esophagitis GERD (gastroesophageal reflux disease) Hypertension IBS (irritable bowel syndrome) Thrombocytopenia Trochanteric bursitis of right hip Home Medications simvastatin 40 mg PO QHS 08/12/16 [History Last Taken Unknown] albuterol sulfate 90 mcg/actuation aerosol inhaler 2 puff INHALATION Q4H PRN g 10/11/17 [History Last Taken Unknown] cholecalciferol (vitamin D3) 50 mcg (2,000 unit) capsule 4,000 unit PO QDAY cap 10/11/17 [History Last Taken Unknown] levothyroxine 50 mcg tablet 88 mcg PO DAILY tab 06/06/18 [History Last Taken 01/14/19] fluticasone propionate 2 spr NASAL DAILY PRN 12/10/18 [History Last Taken Unknown] pantoprazole 40 mg PO DAILY 12/10/18 [History Last Taken 01/14/19] metoprolol tartrate 25 mg PO DAILY PRN 01/07/19 [History Last Taken Unknown] sucralfate 1 gram tablet 1 g PO 4X/DAY PRN tab 12/08/20 [History Last Taken Unknown] Allergy/AdvReac Type Severity Reaction Status Date / Time Sulfa (Sulfonamide Allergy Intermediate Other Verified 03/27/21 09:44 Antibiotics) atorvastatin [From Lipitor] Allergy Mild itching Verified 03/27/21 09:44 surgical tape AdvReac Rash Uncoded 03/27/21 09:44 Family History Father Heart disease Mother Heart disease Hypertension Thyroid disorder Surgical History History of cholecystectomy History of hysterectomy S/P appendectomy S/P colectomy S/P hernia repair (~01/14/19) Social History Smoking Status: Never smoker alcohol intake: current alcohol intake frequency: holidays/special occasions only substance use type: does not use caffeine: Yes what type of physical activity do you participate in: walking seatbelt use: always do you feel safe at home: Yes additional social history: - Luis Patient and are both retired ROS ROS ED Constitutional Constitutional ED: Denies chills, fever(s) or subjective ENT ENT ED: Denies rhinorrhea or sore throat Cardiovascular Cardiovascular: Denies chest pain or palpitations Respiratory/Chest Respiratory/Chest: Denies cough or dyspnea Gastrointestinal Gastrointestinal: Reports abdominal pain and nausea; Denies constipation or diarrhea Genitourinary Genitourinary ED: Denies dysuria, hematuria or urinary frequency Musculoskeletal Musculoskeletal: Denies arthralgias or myalgias Integumentary Denies abscess or rash Neurologic Neurologic: Reports paresthesias RLE and LLE; Denies headache(s) or weakness Psychiatric Psychiatric: Denies anxiety or depression EXAM Physical Exam Const Vital Signs: 03/27/21 09:41 03/27/21 13:47 Temperature 97.4 F L Temperature Source Temporal Pulse Rate 79 62 Respiratory Rate 16 14 Blood Pressure 142/93 H 141/81 H Blood Pressure Mean 109 Pulse Ox 96 97 Oxygen Delivery Method Room Air Positive well nourished General Appearance ED: NAD HEENT normocephalic and atraumatic Eyes PERRL and EOMs intact bilaterally General Eye ED: Negative for scleral icterus Neck no lymphadenopathy and supple Resp normal respiratory effort and clear to auscultation bilaterally Cardio regular rate and regular rhythm GI non-distended GI Narrative: Tenderness to palpation laterally over the right flank. There is no CVA tenderness. Palpation: soft Back/Spine no CVA tenderness Extremity full ROM Extremity Narrative: Patient has 2+ pedal pulses bilaterally. Motor and sensation are intact. Calves are nontender to palpation. No cords palpated. General Extremety ED: Negative for edema General Extremity: Negative for edema Neuro moves all extremities Sensorium / Orientation: alert and oriented to person Psych mental status grossly normal Skin no wounds Lesions: no lesions Rashes: no rashes MDM MDM MDM Narrative Medical decision making narrative: 70-year-old female presenting with right- sided abdominal pain which has been fairly persistent and intermittent. Her white blood cell count is 5.3. Hemoglobin 16.1, platelets 102. Renal function and electrolytes are normal. Urinalysis is negative for infection or blood. Patient had CT of the abdomen pelvis with IV contrast which shows no acute intra-abdominal process. She already knows of the cysts in her abdomen. Is unclear the etiology of her right-sided pain. In addition she wanted to have her feet evaluated as she states they turn purple when she sits for too long. She has 2+ pedal pulses bilaterally. Her feet are nontender. She recently had DVT studies which were negative. Her feet are not discolored currently. Is unclear the source of the etiology of her symptoms. Patient states that she does not have regular bowel movements and states she only goes once a week. She request magnesium citrate which was given to her. I think the patient stable for discharge at this time. Impression: 1. Lateral feet paresthesias 2. Abdominal pain unknown cause Lab Data Labs: Laboratory Results - last 24 hr 03/27/21 03/27/21 03/27/21 11:00 11:00 11:00 WBC 5.3 RBC 5.35 Hgb 16.1 H Hct 48.2 H MCV 90.1 MCH 30.1 MCHC 33.4 RDW Std Deviation 43.1 RDW Coeff of Quynh 13.1 Plt Count 102 L MPV 10.7 Immature Gran % (Auto) 0.200 Neut % (Auto) 70.3 H Lymph % (Auto) 15.6 L [place] % (Auto) 10.8 H Eos % (Auto) 2.7 Baso % (Auto) 0.4 Absolute Neuts (auto) 3.7 Absolute Lymphs (auto) 0.82 L Nucleated RBC % 0 Sodium 142 Potassium 4.1 Chloride 109 H Carbon Dioxide 26.0 Anion Gap 7 BUN 17 Creatinine 0.88 Estim Creat Clear Calc 52.10 Est GFR (MDRD) Af Amer 81 Est GFR (MDRD) Non-Af 67 BUN/Creatinine Ratio 19.3 Glucose 101 Calcium 9.9 Total Bilirubin 0.40 AST 15 ALT 26 Alkaline Phosphatase 89 Troponin I High Sens 3.3 Total Protein 6.9 Albumin 3.8 Globulin 3.1 Albumin/Globulin Ratio 1.2 Lipase 77 Urine Color Yellow Urine Clarity Sl. Cloudy Urine pH 7.0 Ur Specific [place] 1.010 Urine Protein Negative Urine Glucose (UA) Normal Urine Ketones Negative Urine Occult Blood Negative Urine Nitrite Negative Urine Bilirubin Negative Urine Urobilinogen Normal Ur Leukocyte Esterase Negative Urine RBC 0 SEEN Urine WBC 0 SEEN Ur Squamous Epith Cells 0-5 SEEN Urine Bacteria RARE Urine Mucus 0 SEEN Radiography Diagnostic Testing: Radiology Impression Abdomen/Pelvis CT 03/27/21 10:54 IMPRESSION: Fatty infiltration of the liver. Stable small cyst in the anterior medial aspect of the spleen. Stable bilateral renal cysts more prominent on the left side. Electronically Signed: Felix Galeana MD at 12:46 EDT , Service support , Discharge Plan Triage Chief Complaint: Back ED Provider: Everardo Montgomery Dx/Rx/DC Orders Instructions: ED Flank Pain, Uncertain Cause Prescriptions: No Action cholecalciferol (vitamin D3) 2,000 unit capsule 4,000 unit PO QDAY RF: 0 albuterol sulfate 90 mcg/actuation HFA aerosol inhaler 2 puff INHALATION Q4H PRN (Reason: Sob &/Or Wheezing) RF: 0 simvastatin 40 MG tablet 40 mg PO QHS RF: 0 levothyroxine 50 mcg tablet 88 mcg PO DAILY RF: 0 pantoprazole 40 MG tablet 40 mg PO DAILY RF: 0 fluticasone propionate 16 GM spray,suspension 2 spr NASAL DAILY PRN (Reason: Nasal Congestion) RF: 0 metoprolol tartrate 25 MG tablet 25 mg PO DAILY PRN (Reason: fast heart rate) RF: 0 sucralfate 1 gram tablet 1 g PO 4X/DAY PRN (Reason: Acid Reflux) RF: 0 Primary Care Provider: Hans Armenta III Referrals: Hans Armenta III, MD [Primary Care Provider] - Disposition Disposition: Home, Self Care Discharge Date/Time: 03/27/21 13:47
--- NOTE | 2021-03-27 10:54 | CT_ITS ---
STUDY: CT ABDOMEN AND PELVIS WITH CONTRAST REASON FOR EXAM: Female, 70 years old. Right abdominal pain RADIATION DOSAGE (If Supplied By Facility): CTDIvol = ( 21.15 ) mGy, DLP = ( 611.64 ) mGycm TECHNIQUE: Transaxial images were obtained from the dome of the diaphragm to the symphysis pubis without oral contrast. IV 100mL Isovue-300 was administered. Sagittal and coronal images were reconstructed. Individualized dose optimization techniques were used for this CT. COMPARISON: Comparison is made with prior study dated 05/09/2019. FINDINGS: The visualized lung bases are unremarkable. The visualized portions of the heart are within normal limits. There is decreased attenuation of the liver consistent with steatosis. The patient is status post cholecystectomy. Stable 1 cm cyst in the anterior medial aspect of the spleen. Normal pancreas. Normal bilateral adrenal glands. Stable 1 cm cyst in the mid lower pole of the right kidney. Stable left parapelvic cysts. Stable 1.5 cm cyst in the posterior aspect of the left kidney. There is a small hiatal hernia. Normal small intestine. Normal colon. There are surgical clips in the region of the appendix consistent with a prior appendectomy. There is diffuse atherosclerotic calcification of the abdominal aorta, without a demonstrated aneurysm. Normal inferior vena cava. Normal retroperitoneum. Normal urinary bladder. There is absence of the uterus consistent with a prior hysterectomy. There is evidence of prior anterior abdominal wall hernia repair utilizing mesh. There are degenerative changes of the visualized lumbar spine. CT/Abdomen/Pelvis W IV Cont ONLY IMPRESSION: Fatty infiltration of the liver. Stable small cyst in the anterior medial aspect of the spleen. Stable bilateral renal cysts more prominent on the left side. Electronically Signed: Felix Galeana MD at 12:46 EDT , Service support ,
[2021-03-27 11:11] LABS: Mucous, Urine 0 SEEN /hpf (<or=2+); Red Blood Cells-Urine 0 SEEN /hpf (0-5); White Blood Cells 0 SEEN /hpf (0-5)
[2021-03-27 11:15] LABS: Color, Urine Yellow (Yellow); Glucose, Dipstick Normal (Normal); Ketone-Dipstick Negative (Negative); Leukocyte Esterase-Dipstick Negative /ul (Negative); Nitrite-Dipstick Negative (Negative); Occult Blood-Urine Negative /ul (Negative); Protein-Dipstick Negative (Negative); Urine Bilirubin Dipstick Negative (Negative); Urine Clarity Sl. Cloudy (Clear); Urine Urobilinogen Normal (Normal)
[2021-03-27 11:16] LABS: Absolute Lymphocyte Count 0.82 X10^3/uL (0.83-4.51); Absolute Neutrophil Count 3.7 X10^3/uL (2.0-7.7); Basophil# 0.02 X10^3/uL; Basophil% 0.4 % (0-1); Eosinophil# 0.14 X10^3/uL; Eosinophils% 2.7 % (0-5); Hematocrit 48.2 % (37-47); Hemoglobin 16.1 g/dL (12.0-15.0); Lymphocyte # 0.82 X10^3/ul (0.83-4.51); Lymphocyte % 15.6 % (19-41); Mean Corp Hgb Conc 33.4 g/dL (32-36); Mean Corpuscular Hgb 30.1 pg (27.0-32.0); Mean Corpuscular Volume 90.1 fL (81-99); Mean Platelet Vol. 10.7 fl (6.2-12.0); Monocyte# 0.57 X10^3/uL; Monocyte% 10.8 % (0-10); NRBC Flagged by Analyzer 0 % (0-5); Neutrophil % 70.3 % (47-70); Platelet Count 102 K/mm3 (150-450); RBC Distribution Width CV 13.1 % (11.6-14.6); RBC Distribution Width SD 43.1 fl (35.1-43.9); Red Blood Count 5.35 M/mm3 (4.2-5.4); White Blood Count 5.3 K/mm3 (4.4-11.0)
[2021-03-27 11:26] LABS: Bacteria RARE /hpf (None Seen); Squamous Epithelial Cells - UA 0-5 SEEN /hpf (5-10)
[2021-03-27 11:32] LABS: ALB/GLOB Ratio 1.2 RATIO (0.9-2.4); AST(SGOT) 15 U/L (15-37); Alanine Aminotransfer ALT/SGPT 26 U/L (13-56); Albumin, Serum 3.8 g/dL (3.2-5.0); Alkaline Phosphatase 89 U/L (45-117); Anion Gap 7 (5-15); BUN 17 mg/dL (7-18); BUN/Creat Ratio 19.3 RATIO (10-20); Calcium,Total 9.9 mg/dL (8.5-10.1); Chloride 109 mmol/L (98-107); Creatinine, Serum 0.88 mg/dL (0.55-1.02); EST Glomerular Filtration Rate 67 mL/min (>60); Est Glom Filt Rate - Afr Amer 81 mL/min (>60); Globulin 3.1 g/dL (2.2-4.2); Glucose 101 mg/dL (74-106); Lipase 77 U/L (73-393); Potassium 4.1 mmol/L (3.5-5.1); Protein, Total 6.9 g/dL (6.4-8.2); Sodium Level 142 mmol/L (136-145); Troponin-I HS 3.3 pg/mL (3.0-53.7)
[2021-03-27] MEDS: Magnesium Citrate 300 ML PO (13:45)
[2021-03-27 13:47] VITALS: BP 141/81; PULSE 62; RESP 14; O2SAT 97
== END 2021-03-27 13:47 | disposition home or self-care (01) ==
PROVIDERS: Emergency Provider Student in an Organized Health Care Education/Training Program; PCP Family Medicine
DX: R10.9 Unspecified abdominal pain (principal); R20.2 Paresthesia of skin; R11.0 Nausea; N28.1 Cyst of kidney, acquired; K76.0 Fatty (change of) liver, not elsewhere classified; Z90.49 Acquired absence of other specified parts of digestive tract; K21.9 Gastro-esophageal reflux disease without esophagitis; I10 Essential (primary) hypertension; D69.6 Thrombocytopenia, unspecified; K58.9 Irritable bowel syndrome, unspecified; Z79.899 Other long term (current) drug therapy
CPT/HCPCS: 74177; 80053; 81001; 83690; 84484; 85025; 99285; Q9967

== ENCOUNTER 2021-07-13 11:00 | Outpatient (RCR) | payer MEDICARE, OTHER, SELFPAY ==
--- NOTE | 2021-06-22 12:52 | HP.PTEVAL_ITS ---
Patient's Visit Information ELIZABETH TALAVERA is a 71 year old F referred to Physical Therapy by STEVE Quiles with a diagnosis of Lumbar stenosis with neurogenic claudication, M48.062. Date of Evaluation: 06/22/21 Physical Therapist: Mani Gutierrez - Visit Plan Frequency: 2x /Week Duration: 5 weeks Plan: Continue with trial of lumbar flexion based exercises, core, and back strengthening. Use manual therapy, modalities, and lumbar traction as needed. Pt. presents at this time with lumbar stenosis with radiculopathy. - Subjective Pt. is a 71 y.o. female who has been having bilateral numbness/tingling in both of her legs mostly from her knees down. She will occasionally get back pain as well. Pt. PLOF includes no history of back problems in the past before this. She has had x-ray in the past which showed lumbar spinal stenosis and she is scheduled for an MRI on July 09 and will also have a nerve conduction test as well. Pt. denies any change in her bowel or bladder function or unexplained weight loss. She also denies any falls. Pt. has difficulty with standing/walking longer than 15 minutes, sitting longer than 1 hour, lifting things, housework, and yard work. She is retired and worked at [employer] prior. Her goal with physical therapy is to get rid of the numbness/tingling in her legs. Pt. has had previous physical therapy for her back. Pt. denies any pain just numbness/tingling in both of her legs. Pt. is currently taking Gabapentin which helps some. Her PMH includes hysterectomy, gall bladder removed, colon resection, and double abdominal hernia surgery. Pt. lives with her in [facility]. Her hobbies include walking, traveling, and riding bikes. - Objective Posture- Good posture in standing. Palpation- No tenderness to palpation. Lumbar AROM- flexion WNL and mild change in decreased numbness in both legs; extension WNL and mild pain in low back; SB to left WNL and no pain; SB to right WNL and no pain. Pelvis normal in supine with left leg longer than right. Hip PROM- WNL bilaterally. Left LE strength grossly 5/5 for all motions except hip extension 4+/5. Right LE strength grossly 5/5 for all motions except hip extension 4+/5. Tandem stance on right [30 secs], left [30 secs]. SLS on right [11 secs], left [6 secs]. Special tests- Wells leg raise [-], Straight leg raise [-]. Gait- Pt. ambulates with no gait deviations - Balance/Special Test Scores Oswestry Low Back Score: 0 - Goals Goal 1:: Pt. will be independent with HEP. Goal Time Frame: 2 Weeks Goal 2:: Pt. will be able to sit for at least 1 hour with no pain. Goal Time Frame: 4-6 Weeks Goal 3:: Pt. will be able to stand/walk for at least 30 minutes with pain < 3/10. Goal Time Frame: 4-6 Weeks Goal 4:: Pt. will centralize symptoms from legs to low back. Goal Time Frame: 4-6 Weeks Goal 5:: Pt. will be able to lift at least 20# with proper body mechanics and no pain. Goal Time Frame: 4-6 Weeks Goal 6:: Pt. will rate pain at worst at 3/10 with ADL's. Goal Time Frame: 4-6 Weeks - Rehabilitation Potential Physical Therapy Diagnosis: Decreased lumbar ROM, core/back strength, and pain Rehabilitation Potential: Good - Anticipated Interventions Patient/Client Instruction: Educate patient on: Condition, Plan of Care, Benefits of Fitness Program For the Purpose of:: To decrease pain, To decrease swelling/inflammation, To increase ROM, To improve ability to perform ADL's, To improve performance and independence with ADL's, To increase flexibility/ROM, To assume or resume ADL's, To improve tolerance to ADL's Therapeutic Exercise to Include: Strength training, Body mechanics, Postural training, Flexibilty training, Active ROM, Dynamic Lumbar Stabilization Comment: Continue with trial of lumbar flexion exercises, core, and back strengthening. For the Purpose of:: To decrease pain, To decrease swelling/inflammation, To increase ROM, To improve ability to perform ADL's, To improve performance and independence with ADL's, To increase flexibility/ROM, To assume or resume ADL's, To improve tolerance to ADL's Functional Training to Include: ADL Training, Functional home training For the Purpose of:: To decrease pain, To decrease swelling/inflammation, To increase ROM, To improve ability to perform ADL's, To improve performance and independence with ADL's, To assume or resume ADL's, To improve tolerance to ADL's Manual Therapy Techniques to Include: Mobilization, Soft tissue mobilization For the Purpose of:: To decrease pain, To decrease swelling/inflammation, To increase ROM, To improve ability to perform ADL's, To improve performance and independence with ADL's, To increase flexibility/ROM, To assume or resume ADL's, To improve tolerance to ADL's TENS: Yes IF ES: Yes Cryotherapy (ice pack, ice massage): Yes Thermo therapy (hot pack): Yes Pelvic traction supine: Yes For the Purpose of:: To decrease pain, To decrease swelling/inflammation, To increase ROM, To improve ability to perform ADL's, To improve performance and independence with ADL's, To assume or resume ADL's, To improve tolerance to ADL's Thank you for the opportunity to evaluate your patient. For Medicare and Medicare HMO plans, please review the plan of care and approve it. It will need to be FAXED BACK to us at [phone] for Medicare purposes. For Medicare only, by signing this I certify the plan of care. Please let me know if there are questions or concerns regarding this plan of care. Physician Signature: Date:
--- NOTE | 2021-10-16 08:46 | HP.PT.NRP ---
ELIZABETH TALAVERA was seen in my office for initial evaluation on 06/22/21. The following Plan of Care was established for this patient: Initial Frequency: 2x /Week Initial Duration: 5 weeks Patient/Client Instruction: Educate patient on: Condition, Plan of Care, Benefits of Fitness Program For the Purpose of:: To decrease pain, To decrease swelling/inflammation, To increase ROM, To improve ability to perform ADL's, To improve performance and independence with ADL's, To increase flexibility/ROM, To assume or resume ADL's, To improve tolerance to ADL's Therapeutic Exercise to Include: Strength training, Body mechanics, Postural training, Flexibilty training, Active ROM, Dynamic Lumbar Stabilization For the Purpose of:: To decrease pain, To decrease swelling/inflammation, To increase ROM, To improve ability to perform ADL's, To improve performance and independence with ADL's, To increase flexibility/ROM, To assume or resume ADL's, To improve tolerance to ADL's Functional Training to Include: ADL Training, Functional home training For the Purpose of:: To decrease pain, To decrease swelling/inflammation, To increase ROM, To improve ability to perform ADL's, To improve performance and independence with ADL's, To assume or resume ADL's, To improve tolerance to ADL's Manual Therapy Techniques to Include: Mobilization, Soft tissue mobilization For the Purpose of:: To decrease pain, To decrease swelling/inflammation, To increase ROM, To improve ability to perform ADL's, To improve performance and independence with ADL's, To increase flexibility/ROM, To assume or resume ADL's, To improve tolerance to ADL's TENS: Yes IF ES: Yes Cryotherapy (ice pack, ice massage): Yes Thermo therapy (hot pack): Yes Pelvic traction supine: Yes For the Purpose of:: To decrease pain, To decrease swelling/inflammation, To increase ROM, To improve ability to perform ADL's, To improve performance and independence with ADL's, To assume or resume ADL's, To improve tolerance to ADL's This patient was last seen in our office 07/13/21. Pertinent comments regarding their Physical therapy will appear below: Pt seen 4 visits of POC but did not schedule or attend any furhter visits. aT this point, it has been over 3 months and I will discontinue due to nonattendance. At this point I will be discontinuing this patient from physical therapy. I would be happy to see this patient again in the future if found appropriate by the physician. Thank you! Ash Watkins, DPT, OCS, CSCS Balance/Gait/Functional tests - Balance/Special Test Scores Oswestry Low Back Score: 0
== END 2021-07-13 19:00 | disposition home or self-care (01) ==
LOC: PT 11:00
PROVIDERS: Referring Provider Nurse Practitioner; Visit Provider Nurse Practitioner
DX: M48.062 Spinal stenosis, lumbar region with neurogenic claudication (principal)
CPT/HCPCS: 97110; 97161

== ENCOUNTER → 2021-08-11 13:48 | Outpatient (CLI) | payer MEDICARE, OTHER, SELFPAY ==
--- NOTE | 2021-08-11 13:50 | CT_ITS ---
STUDY: CT MAXILLOFACIAL SINUSES REASON FOR EXAM: Female, 71 years old. CHRONIC SINUSITIS RADIATION DOSAGE (If Supplied By Facility): CTDIvol = ( 33.06 ) mGy, DLP = ( 809.06 ) mGycm TECHNIQUE: The patient was scanned in a multi detector CT scanner. High resolution axial imaging was performed without the administration of intravenous contrast material. Sagittal and coronal images were reconstructed. Individualized dose optimization techniques were used for this CT. COMPARISON: None. FINDINGS: FRONTAL SINUSES: Normal aeration, without mucosal inflammatory disease. ETHMOIDAL SINUSES: Normal aeration, without mucosal inflammatory disease. MAXILLARY SINUSES: Mucosal thickening of the floor the left maxilla sinus consistent with chronic sinusitis. SPHENOIDAL SINUSES: Normal aeration, without mucosal inflammatory disease. There is patency of the bilateral maxillary infundibuli with normal uncinate processes, ethmoid bullae, and hiatus semilunaris. Normal bilateral middle turbinates. Normal bilateral inferior turbinates. Normal midline nasal septum. There is patency of the bilateral nasal airways. The visualized osseous structures are normal. The visualized bilateral orbital contents are normal. CT/Sinus/Facial Bone IMPRESSION: Mild chronic left maxillary sinusitis. Electronically Signed: Marvin Diaz MD at 16:39 EST Tel , Service support ,
== END ==
PROVIDERS: PCP Internal Medicine; Referring Provider Otolaryngology Otolaryngology/Facial Plastic Surgery; Visit Provider Otolaryngology Otolaryngology/Facial Plastic Surgery
DX: J32.9 Chronic sinusitis, unspecified (principal)
CPT/HCPCS: 70486

== ENCOUNTER 2021-10-03 10:19 | Outpatient (CLI) | payer MEDICARE, OTHER, SELFPAY ==
[2021-10-03 12:42] LABS: Absolute Neutrophil Count 2.9 X10^3/uL (2.0-7.7); Basophil# 0.02 X10^3/uL; Basophil% 0.5 % (0-1); Eosinophil# 0.19 X10^3/uL; Eosinophils% 4.3 % (0-5); Hematocrit 48.3 % (37-47); Lymphocyte % 20.5 % (19-41); Mean Corp Hgb Conc 33.1 g/dL (32-36); Mean Corpuscular Hgb 30.4 pg (27.0-32.0); Mean Corpuscular Volume 91.7 fL (81-99); Mean Platelet Vol. 11.7 fl (6.2-12.0); Monocyte# 0.44 X10^3/uL; NRBC Flagged by Analyzer 0 % (0-5); Neutrophil # 2.85 X10^3/uL (2.7-7.7); Neutrophil % 64.7 % (47-70); Platelet Count 101 K/mm3 (150-450); RBC Distribution Width CV 13.1 % (11.6-14.6); RBC Distribution Width SD 44.4 fl (35.1-43.9); Red Blood Count 5.27 M/mm3 (4.2-5.4); White Blood Count 4.4 K/mm3 (4.4-11.0)
[2021-10-03 12:59] LABS: AST(SGOT) 11 U/L (15-37); Alanine Aminotransfer ALT/SGPT 28 U/L (13-56); Albumin, Serum 3.6 g/dL (3.2-5.0); Alkaline Phosphatase 105 U/L (45-117); Anion Gap 10 (5-15); BUN 19 mg/dL (7-18); BUN/Creat Ratio 20.4 RATIO (10-20); Calcium,Total 9.5 mg/dL (8.5-10.1); Chloride 108 mmol/L (98-107); Creatinine, Serum 0.93 mg/dL (0.55-1.02); EST Glomerular Filtration Rate 63 mL/min (>60); Est Glom Filt Rate - Afr Amer 77 mL/min (>60); Ferritin 174 ng/mL (8-252); Globulin 3.5 g/dL (2.2-4.2); Glucose 106 mg/dL (74-106); Iron 91 ug/dL (50-170); Iron Binding Capacity,Total 302 ug/dL (250-450); Potassium 3.7 mmol/L (3.5-5.1); Protein, Total 7.1 g/dL (6.4-8.2); Sodium Level 142 mmol/L (136-145); T4 Free Direct 1.35 ng/dL (0.76-1.46); Thyroid Stim Hormone (TSH) 1.13 uIU/mL (0.358-3.74)
[2021-10-05 10:25] LABS: Zinc, Plasma or Serum 90 ug/dL (44-115)
== END 2021-10-03 23:59 | disposition short-term general hospital (02) ==
LOC: MTLAB 10:21
PROVIDERS: PCP Internal Medicine; Referring Provider Physician Assistant; Visit Provider Physician Assistant
DX: L65.0 Telogen effluvium (principal); L72.0 Epidermal cyst
CPT/HCPCS: 36415; 80053; 82652; 82728; 83540; 83550; 84439; 84443; 84630; 85025; 86038

== ENCOUNTER 2022-01-09 13:09 | Outpatient (CLI) | payer MEDICARE, OTHER, SELFPAY ==
--- NOTE | 2022-01-09 13:27 | MRI_ITS ---
STUDY: MRI BRAIN WITH AND WITHOUT CONTRAST (ATTENTION INTERNAL AUDITORY CANALS - I.A.C.''s) REASON FOR EXAM: Female, 71 years old. ACOUSTIC NEUROMA, left ear tinnitus TECHNIQUE: Standardized multiplanar fat and water weighted pulse sequences were obtained. ml of 14ml Dotarem contrast material was administered intravenously for the contrast portion of the examination. COMPARISON: CT of the facial bones/sinuses dated August 11, 2021 FINDINGS: Normal bilateral temporal bones. Normal bilateral internal auditory canals. There is no demonstrated intracanalicular or cisternal vestibular schwannoma (acoustic neuroma). There is no enhancement of the bilateral VIIth or VIIIth cranial nerves. Normal bilateral cochlea, vestibules and semicircular canals. No visualized cyst or mass at the cerebellar pontine angle. No abnormal enlargement of the cochlea and vestibular canals bilaterally. There is mild cerebral atrophy with widening of the extra-axial spaces and ventricular dilatation. Normal white matter tracts of the supratentorial brain. There is no evidence for recent intracranial ischemia or other cause of cytotoxic edema on diffusion weighted imaging (DWI). Normal T2* images of the brain without demonstrated susceptibility artifact. There is no demonstrated hemosiderin stain. Normal bilateral basal ganglia. Normal thalami. Normal flow voids within the major intracranial circulation suggesting patency by spin echo criteria. Normal venous enhancement. There is no enhancing intra-axial or extra-axial abnormality. No abnormal brain parenchymal lesions are present. No abnormal enhancement or thickening of the meninges or dura. There is no extra-axial fluid accumulation. Normal sella turcica, pituitary gland, infundibular stalk, optic chiasm and hypothalamus. Normal tectal plate and pineal gland. Normal midbrain, ryann and medulla. Normal cerebellum. Normal basal cisterns. No demonstrated orbital abnormality, within the constraints of a routine brain study. Normal visualized paranasal sinuses. Normal calvarium and skull base. Normal visualized soft tissue structures. Normal visualized upper cervical spine. MRI/Brain W/WO Contrast IMPRESSION: 1. Normal unenhanced and enhanced MRI of the bilateral internal auditory canals (I.A.C''s). 2. No visualized cyst or mass at the cerebellar pontine angle. No abnormal enlargement of the cochlea and vestibular canals bilaterally. 3. Involutional changes of the brain, as described above. 4. No acute infarct or intracranial hemorrhage or abnormal parenchymal lesions. Electronically Signed: Mik Kemp MD at 15:42 EDT ,
[2022-01-09 13:56] LABS: CREATININE FINGERSTICK 1.3 mg/dL (0.55-1.02)
== END 2022-01-09 23:59 | disposition home or self-care (01) ==
LOC: MRI 13:10
PROVIDERS: PCP Internal Medicine; Referring Provider Otolaryngology Otolaryngology/Facial Plastic Surgery; Visit Provider Otolaryngology Otolaryngology/Facial Plastic Surgery
DX: H93.3X9 Disorders of unspecified acoustic nerve (principal)
CPT/HCPCS: 70553; A9575

== ENCOUNTER → 2022-02-06 | Outpatient (CLI) | payer MEDICARE, OTHER, SELFPAY ==
--- NOTE | 2022-02-06 08:08 | BI_ITS ---
MAMMOGRAPHY - BILATERAL SCREENING REASON FOR EXAM: Female, 71 years old. Routine annual screening examination. PERTINENT HISTORY: Non-contributory. TECHNIQUE: Digital bilateral breast josh (3D mammographic acquisition) in the CC and MLO projections. 2-D mediolateral oblique (MLO) and craniocaudad (CC) views of both breasts were obtained. CAD: Full Field Digital Mammography with Computer Added Detection was performed. COMPARISON: Comparison is made with prior study dated 02/02/2021 and 02/02/2020. FINDINGS: Breast Composition: The breasts are heterogeneously dense, which may obscure small masses. There are no dominant masses or suspicious calcifications. Stable small benign-appearing bilateral axillary lymph nodes. No other significant abnormalities are identified. There has been no significant change since the prior study. BI/SCRN MAMM (CAD)W/JOSH BILAT IMPRESSION: Stable bilateral screening mammogram. Yearly follow-up mammogram recommended. (A) ASSESSMENT CATEGORY: BIRADS Category 2: Benign. A letter regarding these results will be sent to the patient by the facility within 30 days. Approximately 10% of breast cancers are not detected by mammography. A normal mammogram should not delay biopsy of a clinically suspicious abnormality. [id number] Electronically Signed: Felix Galeana MD at 9:45 EDT ,
== END | disposition home or self-care (01) ==
LOC: OPBI 08:07
PROVIDERS: PCP Internal Medicine; Referring Provider Nurse Practitioner Women's Health; Visit Provider Nurse Practitioner Women's Health
DX: Z12.31 Encounter for screening mammogram for malignant neoplasm of breast (principal)
CPT/HCPCS: 77063; 77067

== ENCOUNTER 2022-04-13 11:00 | Outpatient (RCR) | payer MEDICARE, OTHER, SELFPAY ==
--- NOTE | 2022-03-15 13:20 | HP.PTEVAL ---
Patient's Visit Information ELIZABETH TALAVERA is a 71 year old F referred to Physical Therapy by NATALIE LIVINGSTON with a diagnosis of s/p arthroscopy of the left knee. Date of Evaluation: 03/15/22 Physical Therapist: Sophie Polanco DPT - Visit Plan Frequency: 2x /Week Duration: 4 Weeks Plan: Focus on LE and core strength/stabilization-focus on functional mobility. HEP Given IE: bolster extn, quad set, SLR, hamstring stretch 90/90 - Subjective Left knee surgery about 2 weeks ago- they cleaned it out from 2 meniscal tears. She headed home after surgery- she has no stairs at home- getting around okay at home. Doesn't use a cane or walker anymore. Pain is located along the medial side of the joint. Worst: 5/10 Agg: laying in bed, recliner Eases: getting up and moving around, Ibuprofen. Best: 0/10. Describes the pain as dull and achy- radiates down into the calf. Their is a sharp pain if she moves her knee the wrong way. No buckling or locking up. No Falls since surgery. She was fully I prior to surgery. She is pretty active. No specific exercise routine. Sleep: sometimes when she rolls over it wakes her up- side sleeper. Goals: wants to get back to normal. PMHx: none Meds: thyroid, cholesterol med, vitamin D3, Gabapentin for restless leg - Objective Posture: FH, RS- can correct but does not maintain. Gait: antalgic- decreased stance on the left LE with poor heel/toe due to lack of ROM. Stairs: asc/desc 8 recip with 2 HR- poor control with descent SLS: 5-10 sec then LOB mild hip drop- HR/TR: able without pain. Palpation: tender along lateral joint line. Observation: incisions healing well no sutures ROM: 10-120 degrees-slow heel slide with time for patient to adjust before applying over pressure. Strength: Core: fair plus Hip: 4/5 Knee: 4/5 Ankle: 5/5. Flex: HS: severe Gastroc: moderate, Solues: moderate, Quad:mild. Patellar mobility:WFL - Balance/Special Test Scores Lower Extremity Functional Score: 22 - Goals Goal 1:: Patient will be I with HEP and progression Goal Time Frame: 4-6 Weeks Goal 2:: Patient will ambulate >300 feet with a normalized gait pattern Goal Time Frame: 4-6 Weeks Goal 3:: Patient will asc/desc 8 stairs recip with 1 HR and good control Goal Time Frame: 4-6 Weeks Goal 4:: Patient will demo 0-120 degrees without over pressure or pain Goal Time Frame: 4-6 Weeks Goal 5:: Patient will report 80% improvement Goal Time Frame: 4-6 Weeks - Rehabilitation Potential Physical Therapy Diagnosis: Patient presents with hypermobility-she has decreased pain free ROM, LE and core strength/stabilization, flex and muscular endurance leading to increased pain with ADL's Rehabilitation Potential: Good - Anticipated Interventions Patient/Client Instruction: Educate patient on: Benefits of Fitness Program Therapeutic Exercise to Include: Strength training, Endurance training, Balance training, Coordination, Agility training, Body mechanics, Postural training, Flexibilty training, Gait and locomotor training, Neuromotor development, Dynamic Lumbar Stabilization, Scapular Strength/Stabilization For the Purpose of:: To improve muscle performance and motor function TENS: Yes Cryotherapy (ice pack, ice massage): Yes Thermo therapy (hot pack): Yes Ultrasound (thermal/non thermal): Yes Thank you for the opportunity to evaluate your patient. For Medicare and Medicare HMO plans, please review the plan of care and approve it. It will need to be FAXED BACK to us at [phone] for Medicare purposes. For Medicare only, by signing this I certify the plan of care. Please let me know if there are questions or concerns regarding this plan of care. Physician Signature: Date:
--- NOTE | 2022-04-13 11:30 | HP.PTDCSUM ---
It has been my pleasure to treat ELIZABETH TALAVERA referred by NATALIE LIVINGSTON, with the diagnosis of s/p arthroscopy of the left knee for a total of 9 visit(s). Discharge Date: Please see the following information for a summary of their discharge status. Subjective: Patient reports that she sees the MD on Saturday (Dr. Brice). She can tell the swelling has gone done but its getting better. She still has pain along the medial joint line- that comes and goes. Worst: 2/10 more nagging. Best: 0/10. Eases: Tylenol. Does still ice. Back to everything just uncomfortable. L knee Pain Intensity (Out of 10): 2 % Improvement: 60 Objective/Function: Posture: Fair throughout. Gait: slightly antalgic- decreased stance on the left LE with poor heel/toe due to decreased knee extension. Stairs: asc/desc 8 recip with 1 HR- poor control with descent. SLS: 15 sec then LOB mild hip drop-. HR/TR: able without pain. Palpation: tender along medial joint line. Observation: incisions healing well no sutures. ROM: 0-130 degrees. Strength: Core: fair plus Hip: 4+/5 Knee: 4+/5 Ankle: 5/5. Flex: HS: severe Gastroc: moderate, Solues: moderate, Quad:moderate. Sd. Patellar mobility:WFL Goal 1:: Patient will be I with HEP and progression Goal 2:: Patient will ambulate >300 feet with a normalized gait pattern Goal 3:: Patient will asc/desc 8 stairs recip with 1 HR and good control Goal 4:: Patient will demo 0-120 degrees without over pressure or pain Goal 5:: Patient will report 80% improvement Plan: 04/13/22: Discharge to I HEP- encouraged to call if questions. IE: Focus on LE and core strength/stabilization-focus on functional mobility. HEP Given IE: bolster extn, quad set, SLR, hamstring stretch 90/90 If there are questions or concerns regarding this patient's physical therapy, please feel free to call me at [phone]. Thank you for the referral of this patient. Sincerely, Sophie Polanco, DPT Balance/Gait/Functional tests - Balance/Special Test Scores Lower Extremity Functional Score: 50
== END 2022-04-13 19:00 | disposition home or self-care (01) ==
LOC: PT 11:00
PROVIDERS: PCP Internal Medicine
DX: Z47.89 Encounter for other orthopedic aftercare (principal); S83.242D Other tear of medial meniscus, current injury, left knee, subsequent encounter; X58.XXXD Exposure to other specified factors, subsequent encounter; Z87.890 Personal history of sex reassignment
CPT/HCPCS: 97110; 97162; 97164

== ENCOUNTER → 2022-05-22 | Outpatient (CLI) | payer MEDICARE, OTHER, SELFPAY ==
[2022-05-22 18:19] LABS: Absolute Lymphocyte Count 0.93 X10^3/uL (0.83-4.51); Absolute Neutrophil Count 2.9 X10^3/uL (2.0-7.7); Basophil# 0.03 X10^3/uL; Basophil% 0.6 % (0-1); Eosinophil# 0.21 X10^3/uL; Eosinophils% 4.5 % (0-5); Hematocrit 45.1 % (37-47); Lymphocyte # 0.93 X10^3/ul (0.83-4.51); Lymphocyte % 20.1 % (19-41); Mean Corp Hgb Conc 33.3 g/dL (32-36); Mean Corpuscular Hgb 30.7 pg (27.0-32.0); Mean Corpuscular Volume 92.4 fL (81-99); Mean Platelet Vol. 11.8 fl (6.2-12.0); Monocyte# 0.53 X10^3/uL; Monocyte% 11.4 % (0-10); NRBC Flagged by Analyzer 0 % (0-5); Neutrophil # 2.92 X10^3/uL (2.7-7.7); Neutrophil % 63.2 % (47-70); Platelet Count 109 K/mm3 (150-450); RBC Distribution Width CV 13.1 % (11.6-14.6); RBC Distribution Width SD 44.4 fl (35.1-43.9); Red Blood Count 4.88 M/mm3 (4.2-5.4); White Blood Count 4.6 K/mm3 (4.4-11.0)
[2022-05-22 18:30] LABS: Ferritin 178 ng/mL (8-252); Thyroid Stim Hormone (TSH) 1.93 uIU/mL (0.358-3.74)
== END | disposition home or self-care (01) ==
LOC: MFPLAB 14:20
PROVIDERS: PCP Internal Medicine; Visit Provider Family Medicine
DX: E03.9 Hypothyroidism, unspecified (principal); G25.81 Restless legs syndrome
CPT/HCPCS: 36415; 82728; 84443; 85025

== ENCOUNTER → 2022-07-02 | Outpatient (CLI) | payer MEDICARE, OTHER, SELFPAY ==
[2022-07-02 16:17] LABS: Absolute Lymphocyte Count 1.14 X10^3/uL (0.83-4.51); Absolute Neutrophil Count 3.3 X10^3/uL (2.0-7.7); Basophil# 0.03 X10^3/uL; Basophil% 0.6 % (0-1); Eosinophil# 0.28 X10^3/uL; Eosinophils% 5.2 % (0-5); Hemoglobin 15.2 g/dL (12.0-15.0); Lymphocyte # 1.14 X10^3/ul (0.83-4.51); Lymphocyte % 21.2 % (19-41); Mean Corp Hgb Conc 32.3 g/dL (32-36); Mean Corpuscular Hgb 29.7 pg (27.0-32.0); Mean Corpuscular Volume 91.8 fL (81-99); Mean Platelet Vol. 11.2 fl (6.2-12.0); Monocyte# 0.59 X10^3/uL; NRBC Flagged by Analyzer 0 % (0-5); Neutrophil # 3.32 X10^3/uL (2.7-7.7); Neutrophil % 61.8 % (47-70); Platelet Count 116 K/mm3 (150-450); RBC Distribution Width CV 13.2 % (11.6-14.6); RBC Distribution Width SD 44.7 fl (35.1-43.9); Red Blood Count 5.12 M/mm3 (4.2-5.4); White Blood Count 5.4 K/mm3 (4.4-11.0)
[2022-07-02 16:46] LABS: Erythrocyte Sedimentation Rate 4 mm/hr (0-30)
[2022-07-02 16:55] LABS: ALB/GLOB Ratio 1.1 RATIO (0.9-2.4); AST(SGOT) 13 U/L (15-37); Alanine Aminotransfer ALT/SGPT 30 U/L (13-56); Albumin, Serum 3.6 g/dL (3.2-5.0); Alkaline Phosphatase 100 U/L (45-117); Anion Gap 6 (5-15); BUN 21 mg/dL (7-18); BUN/Creat Ratio 26.9 RATIO (10-20); CRP 4.13 mg/L (0.0-3.0); Chloride 110 mmol/L (98-107); Creatinine, Serum 0.78 mg/dL (0.55-1.02); EST Glomerular Filtration Rate 77 mL/min (>60); Est Glom Filt Rate - Afr Amer 93 mL/min (>60); Globulin 3.2 g/dL (2.2-4.2); Glucose 102 mg/dL (74-106); LDH 194 U/L (84-246); Potassium 3.7 mmol/L (3.5-5.1); Protein, Total 6.8 g/dL (6.4-8.2); Sodium Level 143 mmol/L (136-145)
[2022-07-04 12:08] LABS: Anti-Centromere B Ab <0.2 AI (0.0-0.9); Anti-Chromatin <0.2 AI (0.0-0.9); Anti-Jo <0.2 AI (0.0-0.9); Anti-Scleroderma-70 AB 0.2 AI (0.0-0.9); RNP Ab <0.2 AI (0.0-0.9); SJOGREN'S Anti-SS-A test < 0.2 AI (0.0-0.9); SJOGREN'S Anti-SS-B test < 0.2 AI (0.0-0.9); Smith Ab <0.2 AI (0.0-0.9)
[2022-07-04 14:09] LABS: Endomysial Antibody IgA Negative (Negative)
[2022-07-04 16:03] LABS: Anti-dsDNA Ab <1 IU/mL (0-9)
[2022-07-05 12:36] LABS: Immunoglobulin A 113 mg/dL (64-422); t-Transglutaminase IgA <2 U/mL (0-3)
[2022-07-11 10:08] LABS: Alpha-1-Globulins 0.2 g/dL (0.0-0.4); Alpha-2-Globulins 0.8 g/dL (0.4-1.0); Cytoplasmic Ab (C-ANCA) <1:20 titer (Neg:<1:20); Gamma Globulin 0.7 g/dL (0.4-1.8); Immunoglobulin A 121 mg/dL (64-422); Immunoglobulin E 124 IU/mL (6-495); Immunoglobulin G 617 mg/dL (586-1602); Immunoglobulin M 109 mg/dL (26-217); PROEL- TOTAL PROTEIN 6.5 g/dL (6.0-8.5)
[2022-07-11 11:11] LABS: Gastrin, Serum < 10 pg/mL (0-115); Perinuclear Ab (P-ANCA) <1:20 titer (Neg:<1:20)
== END | disposition home or self-care (01) ==
LOC: LAB 15:23
PROVIDERS: PCP Family Medicine; Visit Provider Internal Medicine Gastroenterology
DX: K21.9 Gastro-esophageal reflux disease without esophagitis (principal)
CPT/HCPCS: 36415; 80053; 82784; 82785; 82941; 83516; 83615; 84165; 85025; 85652; 86140; 86225; 86235; 86255; 86256; 86334

== ENCOUNTER → 2022-07-18 | Outpatient (CLI) | payer MEDICARE, OTHER, SELFPAY | END | disposition home or self-care (01) | PROVIDERS: PCP Family Medicine; Referring Provider Internal Medicine Gastroenterology; Visit Provider Internal Medicine Gastroenterology | DX: K58.1 Irritable bowel syndrome with constipation (principal) | CPT/HCPCS: 36415 ==

== ENCOUNTER → 2022-07-25 | Outpatient (CLI) | payer MEDICARE, OTHER, SELFPAY ==
--- NOTE | 2022-07-25 08:46 | NM_ITS ---
CLINICAL: GERD, hiatal hernia GASTRIC EMPTYING-SULFUR COLLOID TECHNIQUE: The patient was orally administered 1.0 mCi of Tc-sulfur colloid in oatmeal. Gamma camera imaging acquisitions at 1-90 minutes post radiopharmaceutical administration was performed. COMPARISON STUDIES : NM - None. CR - Not available for review at this time. CT - 03/27/2021 MR - Not available for review at this time. FINDINGS: There is normal filling and emptying of the stomach. No gastroesophageal reflux with normal passage into the small bowel. T 1/2 measures 48 minutes, within normal limits. NM/Gastric Emptying Study IMPRESSION: Normal gastric emptying nuclear medicine scan. Electronically Signed: Nish Nagy (Brooks), at 10:44 EDT ,
== END | disposition home or self-care (01) ==
LOC: NM 08:43
PROVIDERS: PCP Family Medicine; Referring Provider Internal Medicine Gastroenterology; Visit Provider Internal Medicine Gastroenterology
DX: K21.9 Gastro-esophageal reflux disease without esophagitis (principal)
CPT/HCPCS: 78264; A9541

== ENCOUNTER → 2022-08-01 | Outpatient (CLI) | payer MEDICARE, OTHER, SELFPAY ==
[2022-08-01 11:10] LABS: Cholesterol 194 mg/dL (200); High Density Lipoprotein 43 mg/dL; Thyroid Stim Hormone (TSH) 2.48 uIU/mL (0.358-3.74); Triglycerides 130 mg/dL; Very Low Density Lipoprotein 26 mg/dL (5-40)
== END | disposition home or self-care (01) ==
LOC: MFPLAB 08:21
PROVIDERS: PCP Family Medicine; Referring Provider Family Medicine; Visit Provider Family Medicine
DX: E03.9 Hypothyroidism, unspecified (principal); E78.5 Hyperlipidemia, unspecified
CPT/HCPCS: 36415; 80061; 84443

== ENCOUNTER → 2022-08-07 | Outpatient (CLI) | payer MEDICARE, OTHER, SELFPAY ==
[2022-08-07 18:27] LABS: ALB/GLOB Ratio 1.3 RATIO (0.9-2.4); AST(SGOT) 14 U/L (15-37); Alanine Aminotransfer ALT/SGPT 22 U/L (13-56); Albumin, Serum 3.8 g/dL (3.2-5.0); Alkaline Phosphatase 97 U/L (45-117); Anion Gap 6 (5-15); BUN 20 mg/dL (7-18); BUN/Creat Ratio 26.2 RATIO (10-20); Calcium,Total 9.6 mg/dL (8.5-10.1); Chloride 109 mmol/L (98-107); Creatinine, Serum 0.76 mg/dL (0.55-1.02); EST Glomerular Filtration Rate 79 mL/min (>60); Est Glom Filt Rate - Afr Amer 96 mL/min (>60); Glucose 92 mg/dL (74-106); Potassium 3.5 mmol/L (3.5-5.1); Protein, Total 6.8 g/dL (6.4-8.2); Sodium Level 142 mmol/L (136-145)
[2022-08-07 18:29] LABS: Vitamin B12 713 pg/mL (211-911); Vitamin D,25 Hydroxy 45.1 ng/mL
[2022-08-07 18:48] LABS: Hemoglobin A1c 5.2 % (3.8-5.6)
== END | disposition home or self-care (01) ==
LOC: MFPLAB 17:00
PROVIDERS: PCP Family Medicine; Visit Provider Nurse Practitioner Family
DX: E55.9 Vitamin D deficiency, unspecified (principal); E53.8 Deficiency of other specified B group vitamins; R20.0 Anesthesia of skin; R20.2 Paresthesia of skin
CPT/HCPCS: 36415; 80053; 82306; 82607; 83036

== ENCOUNTER → 2022-09-10 | Outpatient (CLI) | payer MEDICARE, OTHER, SELFPAY ==
[2022-09-10 12:07] LABS: Prothrombin Time (Protime)PT. 13.1 SECONDS (11.7-14.9)
[2022-09-10 12:32] LABS: GGTP 18 U/L (5-55)
[2022-09-13 10:26] LABS: Anti-Mitochondrial AB <20.0 Units (0.0-20.0); Anti-Smooth Muscle ABS 4 Units (0-19)
== END | disposition home or self-care (01) ==
LOC: LAB 10:47
PROVIDERS: PCP Family Medicine; Referring Provider Nurse Practitioner Adult Health; Visit Provider Nurse Practitioner Adult Health
DX: R76.8 Other specified abnormal immunological findings in serum (principal); K76.0 Fatty (change of) liver, not elsewhere classified; Z90.710 Acquired absence of both cervix and uterus; Z98.890 Other specified postprocedural states
CPT/HCPCS: 36415; 82977; 83516; 85610

== ENCOUNTER → 2022-09-27 | Outpatient (CLI) | payer MEDICARE, OTHER, SELFPAY ==
--- NOTE | 2022-09-27 08:14 | US_ITS ---
STUDY: ABDOMINAL ULTRASOUND - RIGHT UPPER QUADRANT REASON FOR VISIT: Female, 72 years old elastography -- RUQ . Prior cholecystectomy. TECHNIQUE: Ultrasound evaluation of the right upper quadrant was performed with real-time and static nicholson-scale imaging. TECHNICAL QUALITY: Adequate. COMPARISON: None. FINDINGS: Liver: The liver measures 13.1 cm. There is increased echogenicity consistent with fatty infiltration. The bile ducts are within normal limits. There is hepatic color flow. The direction of portal flow is hepatopetal. There is no demonstrated mass lesion. Gallbladder: The patient is status post cholecystectomy. Common Bile Duct (C.B.D.): The common bile duct measures 6 mm. Pancreas: Normal size of the head, body and tail of the pancreas. There is increased echogenicity of the pancreas. There is no demonstrated pancreatic mass or cyst. Right Kidney: Normal size of the right kidney. The right kidney measures 10.9 cm x 4.3 cm x 4.4 cm. Normal renal cortex. The right cortex measures 1.3 cm. There is no demonstrated renal mass or cyst. There is mild hydronephrosis of the right kidney. US/Abdomen Limited IMPRESSION: Fatty infiltration of the liver. Mild right hydronephrosis. Electronically Signed: Felix Galeana MD at 10:40 EST ,
--- NOTE | 2022-09-27 08:14 | US_ITS ---
STUDY: ABDOMINAL ULTRASOUND - ELASTOGRAPHY REASON FOR VISIT: Female, 72 years old. Fatty infiltration of the liver. TECHNIQUE: Liver stiffness measurements were obtained on a [employer] RS 85 ultrasound machine using a CA 1-7 probe following the SRU guidelines. 3 measurements were obtained using a 2-D-SWE method. The IQR/M was 13% suggesting a quality data set. TECHNICAL QUALITY: Adequate. COMPARISON: Comparison is made with prior study done earlier today. FINDINGS: Liver: Fatty infiltration of the liver. Median liver stiffness measured 12.5 kPa. US/Elastography Parenchyma/Organ IMPRESSION: Liver stiffness measures 12.5 kPa compatible with F3-F4 (Moderate to severe liver fibrosis) Metavir score. Electronically Signed: Felix Galeana MD at 10:44 EST ,
== END | disposition home or self-care (01) ==
LOC: US 08:13
PROVIDERS: PCP Family Medicine; Visit Provider Nurse Practitioner Adult Health
DX: K76.0 Fatty (change of) liver, not elsewhere classified (principal)
CPT/HCPCS: 76705; 76981

== ENCOUNTER → 2022-10-04 | Outpatient (CLI) | payer MEDICARE, OTHER, SELFPAY | END | disposition home or self-care (01) | PROVIDERS: PCP Family Medicine; Visit Provider Nurse Practitioner Adult Health | DX: R76.8 Other specified abnormal immunological findings in serum (principal) | CPT/HCPCS: 36415 ==

== ENCOUNTER → 2023-02-21 | Outpatient (CLI) | payer MEDICARE, OTHER, SELFPAY ==
--- NOTE | 2023-02-21 08:36 | BI_ITS ---
MAMMOGRAPHY - BILATERAL SCREENING REASON FOR EXAM: Female, 72 years old. Routine annual screening examination. PERTINENT HISTORY: Non-contributory. TECHNIQUE: Digital bilateral breast josh (3D mammographic acquisition) in the CC and MLO projections. 2-D mediolateral oblique (MLO) and craniocaudad (CC) views of both breasts were obtained. CAD: Full Field Digital Mammography with Computer Added Detection was performed. COMPARISON: Mammogram from 02/06/2022, 02/02/2021. FINDINGS: Breast Composition: The breasts are heterogeneously dense, which may obscure small masses. There are no dominant masses or suspicious calcifications. Stable small benign-appearing bilateral axillary lymph nodes. No other significant abnormalities are identified. There has been no significant change since the prior study. BI/SCRN MAMM (CAD)W/JOSH BILAT IMPRESSION: Stable bilateral screening mammogram. Yearly follow-up mammogram recommended. (A) ASSESSMENT CATEGORY: BIRADS Category 2: Benign. A letter regarding these results will be sent to the patient by the facility within 30 days. Approximately 10% of breast cancers are not detected by mammography. A normal mammogram should not delay biopsy of a clinically suspicious abnormality. Electronically Signed: Dominic Mixon DO at 16:46 EDT ,
== END | disposition home or self-care (01) ==
LOC: OPBI 08:34
PROVIDERS: PCP Family Medicine; Referring Provider Nurse Practitioner Women's Health; Visit Provider Nurse Practitioner Women's Health
DX: Z12.31 Encounter for screening mammogram for malignant neoplasm of breast (principal)
CPT/HCPCS: 77063; 77067

== ENCOUNTER → 2023-03-05 | Outpatient (CLI) | payer MEDICARE, OTHER, SELFPAY ==
--- NOTE | 2023-03-05 08:25 | US_ITS ---
STUDY: ABDOMINAL ULTRASOUND - RIGHT UPPER QUADRANT; ELASTOGRAPHY REASON FOR VISIT: Female, 72 years old. TECHNIQUE: Ultrasound evaluation of the right upper quadrant was performed with real-time and static nicholson-scale imaging. Point quantification shear wave elastography was performed ([employer]). TECHNICAL QUALITY: Adequate. COMPARISON: Comparison is made with prior examination dated September 27, 2022. FINDINGS: Liver: The liver measures 13.4 cm. There is increased echogenicity consistent with fatty infiltration. The bile ducts are within normal limits. There is hepatic color flow. The direction of portal flow is hepatopetal. There is no demonstrated mass lesion. Median liver stiffness measured 6.0 kPa. Gallbladder: The patient is status post cholecystectomy. Common Bile Duct (C.B.D.): The common bile duct measures 4.1 mm. Pancreas: There is normal echogenicity of the visualized pancreas. There is no demonstrated pancreatic mass or cyst. Right Kidney: Normal size of the right kidney. The right kidney measures 11 cm x 4.5 cm x 4.5 cm. Normal renal cortex. The right cortex measures 1.5 cm. There is no demonstrated renal mass or cyst. There is mild hydronephrosis of the right kidney. US/ABD Limited w/ Elastography IMPRESSION: 1. Liver stiffness measures 6.0 kPa compatible with F2-F3 (Mild to moderate liver fibrosis) Metavir score. Electronically Signed: Felix Galeana MD at 14:46 EDT ,
== END | disposition home or self-care (01) ==
LOC: US 08:24
PROVIDERS: PCP Family Medicine; Referring Provider Nurse Practitioner Adult Health; Visit Provider Nurse Practitioner Adult Health
DX: K76.0 Fatty (change of) liver, not elsewhere classified (principal)
CPT/HCPCS: 76705; 76981

== ENCOUNTER → 2023-03-12 | Outpatient (CLI) | payer MEDICARE, OTHER, SELFPAY | END | disposition home or self-care (01) | LOC: LABSPEC 10:04 | PROVIDERS: PCP Family Medicine; Referring Provider Physician Assistant Surgical; Visit Provider Physician Assistant Surgical | DX: R30.0 Dysuria (principal) | CPT/HCPCS: 87086; 87088; 87186 ==

== ENCOUNTER 2023-04-09 10:00 | Outpatient (RCR) | payer MEDICARE, OTHER, SELFPAY ==
--- NOTE | 2023-03-06 11:55 | HP.PTEVAL_ITS ---
Patient's Visit Information ELIZABETH TALAVERA is a 72 year old F referred to Physical Therapy by NATALIE LIVINGSTON with a diagnosis of TROCHANTERIC BURSITIS RIGHT HIP ,ILIOTIBAL BAND SYNDROME RIGHT LEG. Date of Evaluation: 03/06/23 Physical Therapist: Gagandeep Mcneill, PT, Cert MDT, OCS - Visit Plan Frequency: 2x /Week Duration: 6 Weeks Plan: PT INTERVETIONS MANUAL THERPY STICK/STM IT BAND, FLEXABLITY HIP , STRENGTHENING HIP ,AND MODALTIES NEEDED - Subjective This 72 y/o female presents to physical therapy right greater trochanteric bursitis ,iliotibial band syndrome. Patient has had right hip pain for ~ 2months. Seen Dr at [facility] did cortisone injection which helped. Had x- rays -. No meds and recommended PT. Patient had h/o bursitis hip 12 years ago. Location lateral hip IT band right side. Pain described as dull ache. Aggrava ting factors walking ,sleeping affects ADLS and housework tasks. Alleviating factors stretching and cortisone . Denies paresthesia/tingling-. Patient condition affects QOL and function. Social: . Vocation: Retired - Pain Right Hip Pain Intensity (Out of 10): 3 Pain Intensity Range: 10 - Objective POSTURE: mild forward posture. GAIT: reciprocal pattern. PALAPTION: tender greater trochanteric ,IT band. NEURO: intact. AROM: hip flexion 120 degrees ,ER 60 degrees ,IR 45 degrees. PROM: ITBAND Min Tight. MMT: quads/hams 4/5 ,hip flexion 4/5 ( peak force) hip abduction 13.2 - Special Tests R Hip Scour: Negative R Hip MEKA - Intraarticular Pathology: Negative R Hip FADDIR - Labrum: Negative R Hip Impingement Provocation - Labrum: Negative R Hip Trendelenberg - Glut Medius: Negative R Hip Terry - IT Band: Negative - Balance/Special Test Scores Lower Extremity Functional Score: 40 - Goals Goal 1:: Patient to be I with HEP for hip Goal Time Frame: 4-6 Weeks Goal 2:: Patient to demonstrate 50% improvement with decrease pain and improved. Goal Time Frame: 4-6 Weeks Goal 3:: Patient to improve peak force by 10 points to improve gait Goal Time Frame: 4-6 Weeks Goal 4:: Patient be able to sleep on right side without pain Goal Time Frame: 4-6 Weeks Goal 5:: Patient to improve LFES score by 5-10 points to improve QOL Goal Time Frame: 4-6 Weeks - Rehabilitation Potential Physical Therapy Diagnosis: This 72 y.o female has IT band syndrome with bursitis left hip with tenderness pain ,weakness affects walking and housework tasks and unable to sleep on right side thus benefit from skilled PT Rehabilitation Potential: Good - Anticipated Interventions Patient/Client Instruction: Educate patient on: Condition, Plan of Care For the Purpose of:: To decrease pain, To increase ROM, To improve muscle performance and motor function, To improve ability to perform ADL's, To increase tolerance to activity/condition/position, To improve ability of physical actions for home/community/work/leisure, To improve health of tissue, To decrease soft tissue restriction, To increase flexibility/ROM, To improve balance Therapeutic Exercise to Include: Strength training, Balance training, Flexibilty training, Passive ROM, Active ROM Comment: HIP For the Purpose of:: To decrease pain, To increase ROM, To improve nutrient delivery to tissue, To increase oxygenation perfusion, To improve muscle performance and motor function, To improve ability to perform ADL's, To increase tolerance to activity/condition/position, To improve ability of physical actions for home/community/work/leisure, To improve health of tissue, To decrease soft tissue restriction, To improve endurance, To improve balance Manual Therapy Techniques to Include: Mobilization, Soft tissue mobilization Comment: ITBAND For the Purpose of:: To decrease pain, To increase ROM, To improve nutrient delivery to tissue, To increase oxygenation perfusion, To improve health of tissue, To decrease soft tissue restriction TENS: Yes IF ES: Yes Cryotherapy (ice pack, ice massage): Yes Thermo therapy (hot pack): Yes Ultrasound (thermal/non thermal): Yes For the Purpose of:: To decrease pain, To decrease swelling/inflammation, To improve nutrient delivery to tissue, To increase oxygenation perfusion, To improve health of tissue, To decrease soft tissue restriction Thank you for the opportunity to evaluate your patient. For Medicare and Medicare HMO plans, please review the plan of care and approve it. It will need to be FAXED BACK to us at [phone] for Medicare purposes. For Medicare only, by signing this I certify the plan of care. Please let me know if there are questions or concerns regarding this plan of care. Physician Signature: Date:
--- NOTE | 2023-05-31 07:50 | HP.PTDCSUM ---
Discharge Summary D/C summary: It has been my pleasure to treat ELIZABETH TALAVERA referred by NATALIE LIVINGSTON, with the diagnosis of TROCHANTERIC BURSITIS RIGHT HIP ,ILIOTIBAL BAND SYNDROME RIGHT LEG for a total of 8 visit(s). Discharge Date: 04/09/23 Please see the following information for a summary of their discharge status. Subjective Subjective: Pain about same plan to see DR Pain Right Hip: Pain Intensity (Out of 10): 5 Overall Improvement % Improvement: 20 Objective Objective/Function: POSTURE: mild forward posture. GAIT: reciprocal pattern. PALAPTION: tender greater trochanteric ,IT band. NEURO: intact. AROM: hip flexion 120 degrees ,ER 60 degrees ,IR 45 degrees. PROM: ITBAND Min Tight. MMT: quads/hams 4/5 ,hip flexion 4/5 ( peak force) hip abduction 15.2 Goals Goal 1:: Patient to be I with HEP for hip Goal Progress: Goal Met Goal 2:: Patient to demonstrate 50% improvement with decrease pain and improved. Goal Progress: Progressing Goal 3:: Patient to improve peak force by 10 points to improve gait Goal Progress: Progressing Goal 4:: Patient be able to sleep on right side without pain Goal Progress: Progressing Goal 5:: Patient to improve LFES score by 5-10 points to improve QOL Goal Progress: Progressing Plan Plan: D/C TO HEP RTD D/C Information Discharge Comments: RTD d/c sentence: If there are questions or concerns regarding this patient's physical therapy, please feel free to call me at [phone]. Thank you for the referral of this patient. Sincerely, Gagandeep Mcneill, PT, Cert MDT, OCS Balance/Gait/Functional tests Balance/Special Test Scores Lower Extremity Functional Score: 40 Improvement % Improvement: 20
== END 2023-04-09 19:00 | disposition home or self-care (01) ==
LOC: PT 10:00
PROVIDERS: PCP Family Medicine
DX: M76.31 Iliotibial band syndrome, right leg (principal); M70.61 Trochanteric bursitis, right hip
CPT/HCPCS: 97110; 97140; 97162; 97530

== ENCOUNTER → 2023-04-18 | Outpatient (CLI) | payer MEDICARE, OTHER, SELFPAY ==
--- NOTE | 2023-04-18 12:56 | ECHOD_ITS ---
Reason For Study: HTN Procedure This was a 2D Doppler, Color Flow transthoracic echocardiogram. Exam performed in department. Left Ventricle Normal size and thickness. Left ventricular systolic function is normal. The estimated ejection fraction is 60 %. Stage 1 diastolic dysfunction. No regional wall motion abnormalities noted. Right Ventricle Normal RV size. Normal systolic function. Atria Normal left atrium. Normal right atrium. Mitral Valve Normal mitral valve. Tricuspid Valve Normal tricuspid valve. Aortic Valve Normal aortic valve. Trisinus/trileaflet aortic valve. Pulmonic Valve Normal pulmonic valve. Great Vessels Normal aortic root. The pulmonary artery is normal size. Normal inferior vena cava. Pericardium/Pleural No pericardial effusion. MMode/2D Measurements & Calculations LVIDd: 3.8 cm IVSd: 0.91 cm Ao root diam: 2.8 cm LVIDs: 2.5 cm LVPWd: 0.77 cm LA dimension: 2.7 cm RVDd: 3.2 cm FS: 34.9 % LAV(MOD-bp): 30.6 ml LVAd ap4: 22.0 cm2 SV(MOD-sp4): 34.2 ml LAV(MOD-bp) Indexed: 17.0 ml/m2 LVLd ap4: 7.9 cm LAV(MOD-sp2): 33.8 ml EDV(MOD-sp4): 50.6 ml LAV(MOD-sp4): 25.9 ml EDV(sp4-el): 52.1 ml LVAs ap4: 10.3 cm2 LVLs ap4: 5.5 cm ESV(MOD-sp4): 16.3 ml ESV(sp4-el): 16.4 ml EF(MOD-sp4): 67.7 % EF(sp4-el): 68.6 % SV(sp4-el): 35.8 ml LA A4 area: 12.7 cm2 RA A4 area: 9.0 cm2 Time Measurements MV dec time: 0.22 sec Doppler Measurements & Calculations MV E max asa: 79.4 cm/sec Lat Peak E' Asa: 13.6 cm/sec Med Peak E' Asa: 8.9 cm/sec MV A max asa: 94.2 cm/sec E/E' lat: 5.8 E/E' med: 9.0 MV E/A: 0.84 MV V2 max: 101.0 cm/sec MV P1/2t max asa: 86.7 cm/sec Ao V2 max: 133.4 cm/sec MV max P.1 mmHg MV P1/2t: 76.1 msec Ao max P.1 mmHg MV V2 mean: 60.9 cm/sec Ao V2 mean: 87.3 cm/sec MV mean P.7 mmHg MV dec slope: 333.7 cm/sec2 Ao mean P.6 mmHg MV V2 VTI: 31.9 cm MVA(P1/2t): 2.9 cm2 Ao V2 VTI: 32.2 cm AV (velocity ratio): 0.80 LV V1 max: 114.1 cm/sec MR max asa: 397.0 cm/sec PA V2 max: 106.0 cm/sec LV V1 max P.2 mmHg MR max P.0 mmHg PA V2 mean: 67.4 cm/sec LV V1 mean P.5 mmHg LV V1 mean: 73.1 cm/sec LV V1 VTI: 25.9 cm ECHO/Echo Complete Interpretation Summary Normal size and thickness. Left ventricular systolic function is normal. The estimated ejection fraction is 60 %. Stage 1 diastolic dysfunction. Structurally normal valves. Ordering Physician: Joel Islas Referring Physician: Ana Lilia Arias Performed By: Luis Stewart RCS
== END | disposition home or self-care (01) ==
LOC: CVS 12:55
PROVIDERS: PCP Family Medicine; Referring Provider Internal Medicine Cardiovascular Disease; Visit Provider Internal Medicine Cardiovascular Disease
DX: Z98.890 Other specified postprocedural states (principal); Z90.710 Acquired absence of both cervix and uterus
CPT/HCPCS: 93306

== ENCOUNTER → 2023-08-07 | Outpatient (CLI) | payer MEDICARE, OTHER, SELFPAY ==
[2023-08-07 09:06] LABS: Absolute Lymphocyte Count 1.31 X10^3/uL (0.83-4.51); Absolute Neutrophil Count 3.3 X10^3/uL (2.0-7.7); Basophil# 0.05 X10^3/uL; Basophil% 0.9 % (0-1); Eosinophils% 3.6 % (0-5); Hematocrit 48.4 % (37-47); Hemoglobin 15.2 g/dL (12.0-15.0); Lymphocyte # 1.31 X10^3/ul (0.83-4.51); Lymphocyte % 23.8 % (19-41); Mean Corp Hgb Conc 31.4 g/dL (32-36); Mean Corpuscular Hgb 30.2 pg (27.0-32.0); Monocyte# 0.66 X10^3/uL; NRBC Flagged by Analyzer 0 % (0-5); Neutrophil # 3.26 X10^3/uL (2.7-7.7); Neutrophil % 59.3 % (47-70); Platelet Count 120 K/mm3 (150-450); RBC Distribution Width CV 13.4 % (11.6-14.6); RBC Distribution Width SD 47.6 fl (35.1-43.9); Red Blood Count 5.04 M/mm3 (4.2-5.4); White Blood Count 5.5 K/mm3 (4.4-11.0)
[2023-08-07 09:38] LABS: ALB/GLOB Ratio 1.2 RATIO (0.9-2.4); AST(SGOT) 8 U/L (15-37); Alanine Aminotransfer ALT/SGPT 19 U/L (13-56); Albumin, Serum 3.4 g/dL (3.2-5.0); Alkaline Phosphatase 89 U/L (45-117); Anion Gap 0 (5-15); BUN 22 mg/dL (7-18); BUN/Creat Ratio 23.7 RATIO (10-20); Calcium,Total 9.4 mg/dL (8.5-10.1); Chloride 109 mmol/L (98-107); Cholesterol 194 mg/dL (200); Creatinine, Serum 0.93 mg/dL (0.55-1.02); EST Glomerular Filtration Rate 63 mL/min (>60); Est Glom Filt Rate - Afr Amer 76 mL/min (>60); Globulin 2.9 g/dL (2.2-4.2); Glucose 89 mg/dL (74-106); High Density Lipoprotein 43 mg/dL; Potassium 3.8 mmol/L (3.5-5.1); Protein, Total 6.3 g/dL (6.4-8.2); Sodium Level 142 mmol/L (136-145); Thyroid Stim Hormone (TSH) 2.93 uIU/mL (0.358-3.74); Triglycerides 125 mg/dL; Very Low Density Lipoprotein 25 mg/dL (5-40)
== END | disposition home or self-care (01) ==
LOC: LAB 08:35
PROVIDERS: PCP Family Medicine; Referring Provider Family Medicine; Visit Provider Family Medicine
DX: E03.9 Hypothyroidism, unspecified (principal); D69.6 Thrombocytopenia, unspecified; E78.5 Hyperlipidemia, unspecified
CPT/HCPCS: 36415; 80053; 80061; 84443; 85025

== ENCOUNTER → 2023-09-04 | Outpatient (CLI) | payer MEDICARE, OTHER, SELFPAY ==
[2023-09-06 15:08] LABS: H.Pylori Breath Test Negative (Negative)
== END | disposition home or self-care (01) ==
LOC: LAB 13:47
PROVIDERS: PCP Family Medicine; Referring Provider Nurse Practitioner Family; Visit Provider Nurse Practitioner Family
DX: R10.13 Epigastric pain (principal); R11.0 Nausea
CPT/HCPCS: 83013

== ENCOUNTER → 2023-10-08 | Outpatient (CLI) | payer MEDICARE, OTHER, SELFPAY ==
--- NOTE | 2023-10-08 09:52 | ART_ITS ---
Reason For Study: Stricture of Artery Procedure A bilateral lower extremity continuous wave Doppler with analog waveform analysis and ankle brachial indexes. Left Segmental Pressures Left brachial= 113mmHg. Left posterior tibial artery = 119mmHg. Left dorsalis pedis artery = 123mmHg. Left digit = 77 mmHg. The left posterior tibial artery waveforms are triphasic. The left dorsalis pedis waveforms are triphasic. Right Segmental Pressures Right brachial= 107mmHg. Right posterior tibial artery = 122mmHg. Right dorsalis pedis artery = 119mmHg. Right digit = 85 mmHg. The right posterior tibial artery waveforms are triphasic. The right dorsalis pedis waveforms are triphasic. Indices The right ankle brachial index by the posterior tibial artery is 1.08. The right ankle brachial index by the dorsalis pedis is 1.05. The right digital-brachial index is 0.75. The left ankle brachial index by the posterior tibial artery is 1.05. The left ankle brachial index by the dorsalis pedis is 1.09. The left post exercise ankle brachial index is 0.68. VL/Ankle Brachial Index Interpretation Summary Normal at rest with RACHELLE 1.08 and 1.09. Ordering Physician: Tony Bolden Referring Physician: MD Tony Bolden Performed By: Dinh Tee RVT
--- OUTSIDE RECORDS SUMMARY | 2023-10-08 11:04 | XMS RPT_ITS | CCD ---
Author Name Unknown Address [address] [place] [address] Organization [facility] Care Team Providers Care Hyperbaric Nurse Name Role Phone Hayden Wolff Unavailable Unavailable Hans Armenta Unavailable Unavailable Hayden Wolff Unavailable Unavailable Hayden Wolff Unavailable Unavailable Hayden Wolff Unavailable Unavailable Hans Armenta Unavailable Unavailable OZZIE GONZALEZ Unavailable Unavailable Hans Armenta Unavailable Unavailable OZZIE GONZALEZ Unavailable Unavailable Hans Armenta Unavailable Unavailable Rowan Macdonald Unavailable Unavailable Ashlyn Herrera DC Unavailable Hans Armenta Unavailable Unavailable Unavailable Genevieve Alfaro MD Primary Care Provider Timothy Isaac PA-C Unavailable Genevieve Alfaro MD Primary Care Provider Genevieve Alfaro MD Primary Care Provider Unavailable Primary Care Provider Unavailmiller Armenta III, MD, Frank A Primary Care Provider Annie vailable HEATHER SNEED Attending Unavailable GENEVIEVE ALFARO Primary Care Unavailable GENEVIEVE ALFARO Primary Care Unavailable HEATHER SNEED Referring Unavailable HANS ARMENTA III Primary Care Unavailable ZHANNA SHBRIEI Attending Unavailable CASH GALARZA Attending Unavailable CASH ARIAS Primary Care Unavailable CASH ARIAS Primary Care Unavailable Allergies Allergy Classification Reported Allergen(s) Allergy Type Date of Onset Reaction(s) Facility (17 sources) atorvastatin; Translations: [ATORVASTATIN CALCIUM] Drug Allergy 03-20-200 7 [facility] (17 sources) Sulfamethoxazole; Translations: [SULFAMETHOXAZOLE ] Drug Allergy 1 Other: See Comments [facility] Work Phone: (1 source) House dust mite; Translations: [DUST MITES] allergy to substance [address] [facility] Work Phone: (1 source) Latex; Translations: [LATEX] allergy to substance [address] [facility] Work Phone: (1 source) Mold Extract; Translations: [MOLD] Drug Allergy [address] [facility] Work Phone: (1 source) Seasonal allergy; Translations: [SEASONAL] allergy to substance [address] [facility] Work Phone: (1 source) Sulfacetamide Drug Allergy [address] [facility] Work Phone: (1 source) Surgical adhesive tape; Translations: [SURGICAL TAPE] allergy to substance [address] [facility] Work Phone: (1 source) PLANT POLLENS; Translations: [PLANT POLLENS] allergy to substance 1 hay fever [facility] Work Phone: Medications Current Medications Medication Drug Class(es) Dates Sig (Normalized) Sig (Original) cyclobenzaprine hydrochloride 10 mg oral tablet (1 source) Muscle Relaxant Start: 01-10-2022 End: 01-16-2022 take 1 tablet by mouth every twelve hours as needed cyclobenzaprine (FLEXERIL) 10 mg tablet Take 1 tablet by mouth twice daily as needed for muscle spasm for up to 6 days. 12 tablet 0 01/10/2022 01/16/2022 Active Completed/Discontinued Medications Medication Drug Class(es) Dates Sig (Normalized) Sig (Original) acetaminophen 500 mg oral tablet (15 sources) take 1 tablet by mouth every eight hours as needed acetaminophen (TYLENOL) 500 mg tablet Take 500 mg by mouth every 8 hours as needed. 0 Active Problems Active Problems Problem Classification Problem Date Documented Da te Episodic/Chronic Cardiac dysrhythmias (15 sources) Premature atrial contraction; Translations: [Atrial premature depolarization] Onset: 9 12-15-2018 Chronic Coagulation and hemorrhagic disorders (15 sources) Platelet count below reference range; Translations: [Thrombocytopenia, unspecified] Onset: 6 01-31-2017 Chronic Coronary atherosclerosis and other heart disease (1 source) Coronary atherosclerosis and other heart disease Onset: 8 Disorders of lipid metabolism (19 sources) Hyperlipidemia; Translations: [Hyperlipidemia, unspecified] Onset: 6 12-08-2015 Chronic Diverticulosis and diverticulitis (19 sources) Diverticulosis of intestine, part unspecified, without perforation or abscess without bleeding; Translations: [Diverticulitis of large intestine without perforation or abscess without bleeding] Onset: 2 01-31-2017 Chronic Esophageal disorders (20 sources) Gastroesophageal reflux disease; Translations: [Gastro-esophageal reflux disease without esophagitis] Onset: 9 07-03-2017 Chronic Esophageal disorders (1 source) Esophageal disorders Onset: 8 Essential hypertension (19 sources) Benign hypertension; Translations: [Benign essential hypertension] Onset: 5 11-08-2014 Chronic Joint disorders and dislocations; trauma-related (1 source) Unspecified internal derangement of left knee; Translations: [Unspecified internal derangement of knee] Onset: 2 01-11-2022 Chronic Menopausal disorders (15 sources) Atrophic vaginitis; Translations: [Postmenopausal atrophic vaginitis] Onset: 4 06-14-2014 Chronic Nutritional deficiencies (16 sources) Vitamin D deficiency; Translations: [Vitamin D deficiency, unspecified] Onset: 2 07-10-2012 Chronic Other aftercare (3 sources) Patient encounter status; Translations: [Other specified aftercare] Episodic Other diseases of kidney and ureters (15 sources) Renal mass; Translations: [Other specified disorders of kidney and ureter] Onset: 7 02-14-2017 Chronic Other diseases of veins and lymphatics (1 source) Other specified disorders of veins; Translations: [Other specified disorders of veins] Onset: 8 Episodic Other diseases of veins and lymphatics (2 sources) Disorder of portal venous system; Translations: [Other specified disorders of circulatory system] Episodic Other gastrointestinal disorders (3 sources) Irritable bowel syndrome; Translations: [Irritable bowel syndrome without diarrhea] Onset: 7 07-03-2017 Chronic Other gastrointestinal disorders (2 sources) Constipation; Translations: [Constipation, unspecified] Episodic Other gastrointestinal disorders (2 sources) History of gastroesophageal reflux disease; Translations: [Personal history of other diseases of digestive system] Episodic Other gastrointestinal disorders (2 sources) History of esophagitis; Translations: [Personal history of other diseases of digestive system] Episodic Other gastrointestinal disorders (2 sources) History of irritable bowel syndrome; Translations: [Personal history of other diseases of digestive system] Episodic Other hematologic conditions (2 sources) History of thrombocytopenia; Translations: [Personal history of diseases of blood and blood-forming organs] Episodic Other hereditary and degenerative nervous system conditions (17 sources) Restless legs; Translations: [Restless legs syndrome] Onset: 9 05-26-2009 Chronic Other hereditary and degenerative nervous system conditions (18 sources) Essential tremor; Translations: [Essential tremor] Onset: 9 05-26-2009 Chronic Other nervous system disorders (6 sources) Polyneuropathy; Translations: [Polyneuropathy, unspecified] Onset: 3 Chronic Other nervous system disorders (1 source) Polyneuropathy, unspecified; Translations: [Polyneuropathy] Onset: 3 Chronic Other nervous system disorders (1 source) Numbness of limbs; Translations: [Anesthesia of skin] Episodic Other screening for suspected conditions (not mental disorders or infectious disease) (2 sources) CT of abdomen abnormal; Translations: [Nonspecific (abnormal) findings on radiological and other examination of abdominal area, including retroperitoneum] Episodic Other upper respiratory disease (18 sources) Seasonal allergy; Translations: [Other seasonal allergic rhinitis] Onset: 6 07-03-2017 Chronic Spondylosis; intervertebral disc disorders; other back problems (17 sources) Degeneration of lumbar intervertebral disc; Translations: [Other intervertebral disc degeneration, lumbar region] Onset: 0 02-29-2020 Chronic Thyroid disorders (20 sources) Hyperthyroidism; Translations: [Hypothyroidism] Onset: 7 07-03-2017 Chronic Unclassified (1 source) Hypothyroidism, unspecified / E03.9(ICD-10) Onset: 8 Unclassified (1 source) Dvtrcli of lg int w perforation and abscess w/o bleeding / K57.20(ICD-10) Onset: 8 Unclassified (1 source) Hypotension, unspecified / I95.9(ICD-10) Onset: 8 Unclassified (1 source) Immune thrombocytopenic purpura / D69.3(ICD-10) Onset: 8 Unclassified (2 sources) Other specified disorders of veins / I87.8(ICD-10) Onset: 8 Unclassified (2 sources) Dvrtclos of intest, part unsp, w/o perf or abscess w/o bleed / K57.90(ICD-10) Onset: 8 Unclassified (2 sources) Encounter for other preprocedural examination / Z01.818(ICD-10) Onset: 8 Unclassified (2 sources) Right lower quadrant pain / R10.31(ICD-10) Onset: 8 Unclassified (1 source) Dvtrcli of lg int w/o perforation or abscess w/o bleeding / K57.32(ICD-10) Onset: 8 Past or Other Problems Problem Classification Problem Date Documented Da te Episodic/Chronic Abdominal hernia (15 sources) Incisional hernia; Translations: [Incisional hernia without obstruction or gangrene] Onset: 8 07-23-2018 Episodic Abdominal pain (19 sources) Right lower quadrant pain; Translations: [Abdominal pain, right lower quadrant] Onset: 8 02-18-2018 Episodic Deficiency and other anemia (5 sources) Vitamin B12 deficiency anemia due to dietary causes; Translations: [Other dietary vitamin B12 deficiency anemia] Onset: 3 Episodic Deficiency and other anemia (1 source) Other dietary vitamin B12 deficiency anemia; Translations: [Other dietary vitamin B12 deficiency anemia] Onset: 3 Episodic Immunizations and screening for infectious disease (1 source) Encounter for screening for human immunodeficiency virus [HIV]; Translations: [Encounter for screening for human immunodeficiency virus (HIV)] Onset: 3 Episodic Nausea and vomiting (17 sources) Nausea; Translations: [Nausea] Onset: 1 04-11-2021 Episodic Other and unspecified benign neoplasm (15 sources) Benign neoplasm of colon; Translations: [Benign neoplasm of colon, unspecified] Onset: 2 06-01-2014 Episodic Other bone disease and musculoskeletal deformities (6 sources) Segmental and somatic dysfunction; Translations: [Segmental and somatic dysfunction of thoracic region] Onset: 7 07-04-2017 Episodic Other bone disease and musculoskeletal deformities (15 sources) Osteopenia; Translations: [Other specified disorders of bone density and structure, unspecified site] Onset: 5 03-07-2015 Episodic Other connective tissue disease (15 sources) Trochanteric bursitis of right hip; Translations: [Trochanteric bursitis, right hip] Onset: 3 12-12-2012 Episodic Other gastrointestinal disorders (16 sources) Chronic constipation; Translations: [Other constipation] Onset: 1 04-11-2021 Episodic Other liver diseases (15 sources) Liver mass; Translations: [Hepatomegaly, not elsewhere classified] Onset: 8 02-18-2018 Episodic Other nervous system disorders (18 sources) Paresthesia of lower extremity; Translations: [Anesthesia of skin] Onset: 1 04-11-2021 Episodic Other nervous system disorders (1 source) Paresthesia of hand ; Translations: [Paresthesia of skin] Onset: 1 07-17-2021 Episodic Other non-traumatic joint disorders (17 sources) Pain in right knee; Translations: [Pain in joint, lower leg] Onset: 1 02-28-2021 Episodic Spondylosis; intervertebral disc disorders; other back problems (17 sources) Lumbar radiculopathy; Translations: [Radiculopathy, lumbar region] Onset: 0 02-29-2020 Episodic Unclassified (1 source) Encounter for other preprocedural examination; Translations: [Encounter for other preprocedural examination] Onset: 8 Unclassified (1 source) Problem Results Test Name Value Interpretation Reference Range Facil ity Vital Signs Date Time Vital Sign Value Performing Clinician Facility 04-08-2023 09:22-0400 Body height 162.6 cm Heather Sneed MD Work Phone: [facility] 04-08-2023 09:22-0400 Body weight 74.53 kg Heather Sneed MD Work Phone: [facility] 04-08-2023 09:22-0400 Diastolic blood pressure 82 mm[Hg] Heather Sneed MD Work Phone: [facility] 04-08-2023 09:22-0400 Heart rate 92 /min Heather Sneed MD Work Phone: [facility] 04-08-2023 09:22-0400 Systolic blood pressure 127 mm[Hg] Heather Sneed MD Work Phone: [facility] 12-24-2022 13:20-0400 Body temperature 97.59 [degF] Heather Sneed MD Work Phone: [facility] 12-24-2022 13:20-0400 Body weight 72.76 kg Heather Sneed MD Work Phone: [facility] 12-24-2022 13:20-0400 Diastolic blood pressure 74 mm[Hg] Heather Sneed MD Work Phone: [facility] 12-24-2022 13:20-0400 Heart rate 72 /min Heather Sneed MD Work Phone: [facility] 12-24-2022 13:20-0400 Systolic blood pressure 139 mm[Hg] Heather Sneed MD Work Phone: [facility] 04-19-2022 07:57-0400 Body weight 70.31 kg Parul Cummings REGISTERED NURSE RENAL.ANTIQUE REFINISHER Work Phone: [facility] 04-19-2022 07:57-0400 Diastolic blood pressure 80 mm[Hg] Parul Cummings REGISTERED NURSE RENAL.ANTIQUE REFINISHER Work Phone: [facility] 04-19-2022 07:57-0400 Heart rate 69 /min Parul Cummings REGISTERED NURSE RENAL.ANTIQUE REFINISHER Work Phone: [facility] 04-19-2022 07:57-0400 Respiratory rate 16 /min Parul Cummings REGISTERED NURSE RENAL.ANTIQUE REFINISHER Work Phone: [facility] 04-19-2022 07:57-0400 SaO2% (BldA) [Mass fraction] 98 % Parul Cummings REGISTERED NURSE RENAL.ANTIQUE REFINISHER Work Phone: [facility] 04-19-2022 07:57-0400 Systolic blood pressure 118 mm[Hg] Parul Cummings REGISTERED NURSE RENAL.ANTIQUE REFINISHER Work Phone: [facility] 01-30-2022 09:40-0400 Body weight 72.58 kg Parul Cummings REGISTERED NURSE RENAL.ANTIQUE REFINISHER Work Phone: [facility] 01-30-2022 09:40-0400 Diastolic blood pressure 78 mm[Hg] Parul Cummings REGISTERED NURSE RENAL.ANTIQUE REFINISHER Work Phone: [facility] 01-30-2022 09:40-0400 Heart rate 84 /min Parul Cummings REGISTERED NURSE RENAL.ANTIQUE REFINISHER Work Phone: [facility] 01-30-2022 09:40-0400 Respiratory rate 16 /min Parlu Cummings REGISTERED NURSE RENAL.ANTIQUE REFINISHER Work Phone: [facility] 01-30-2022 09:40-0400 Systolic blood pressure 130 mm[Hg] Parul Cummings REGISTERED NURSE RENAL.ANTIQUE REFINISHER Work Phone: [facility] 07-03-2017 10:09-0400 BMI (Body Mass Index) 28.26 kg/m2 [facility] [facility] Work Phone: 07-03-2017 10:09-0400 Height 163.07 cm [facility] [facility] Work Phone: 07-03-2017 10:09-0400 Pulse (Heart Rate) 85 /min [facility] [facility] Work Phone: 07-03-2017 10:09-0400 Respiratory Rate 22 /min [employer] [facility] Work Phone: 07-03-2017 10:09-0400 Weight 75.16 kg Rowan [facility] Work Phone: NEGATED: Highlighted [id number] 08:25-0400 Body height 162.56 cm Mary Ann Kong [facility] Work Phone: NEGATED: Highlighted [id number] 08:25-0400 Body height 163 cm Mary Ann Kong [facility] Work Phone: NEGATED: Highlighted [id number] 08:25-0400 Body mass index (BMI) [Ratio] 27.56 kg/m2 Mary Ann Kong [facility] Work Phone: NEGATED: Highlighted [id number] 08:25-0400 Body weight 72.58 kg Mary Ann Kong [facility] Work Phone: NEGATED: Highlighted [id number] 08:25-0400 Body weight 73 kg Mary Ann Kong [facility] Work Phone: Encounters Encounter Date Encounter Type Care Provider Facility Start: 08-01-2023 End: 08-01-2023 ambulatory CASH GALARZA Facility:[facility] Start: 07-01-2023 End: 07-01-2023 ambulatory CASH ARIAS Facility:[facility] Start: 04-08-2023 Telephone encounter Heather Sneed MD Work Phone: Neurology Procedures Date Procedure Procedure Detail Performing Clinician Start: 02-06-2022 Mammography Esperanza solomon RN Start: 02-03-2022 Lipid 1996 panel - S dino or Plasma Heather Sneed MD Work Phone: Start: 01-11-2022 End: 01-11-2022 BP scrn no perf at interval Timothy Isaac PA-C Work Phone: Start: 01-11-2022 End: 01-11-2022 Calc BMI out nrm niesha nof/u Timothy W [employer] Work Phone: Start: 01-11-2022 End: 01-11-2022 Current tobacco non-user cad cap copd pv dm Chance W [employer] Work Phone: Start: 01-11-2022 End: 01-11-2022 Docrev cur meds by ramandeep Aguirre W [employer] Work Phone: Start: 01-11-2022 End: 01-11-2022 Pain doc pos and plan Timothy W [employer] Work Phone: Start: 01-11-2022 End: 01-11-2022 Patient encounter procedure Chance W [employer] Work Phone: Start: 10-17-2021 Adult depression scr eening assessment Genevieve Alfaro MD Work Phone: Start: 05-30-2020 Colonoscopy Genevieve simms MD Work Phone: Start: 02-02-2020 Mammography Genevieve simms MD Work Phone: Start: 11-11-2017 Resection of Sigmoid Colon, Open Approach Hayden Wolff Start: 07-03-2017 End: 07-04-2017 Chiropractic manipulative tx spinal 1-2 regions Ashlyn Herrera DC Work Phone: Start: 07-03-2017 End: 07-03-2017 Dietary management education, guidance, and counseling Rowan Macdonald Appendectomy Hans A Cebul Work Phone: Bladder Surgery Hans A Cebu l Work Phone: Cholecystectomy Hans A Cebu l Work Phone: Hand Surgery Hans A Cebul Work Phone: Hysterectomy Hans A Cebul Work Phone: NEGATED: Highlighted rowStart: 01-11-2022 End: 01-11-2022 Documentation of current medications Mary Ann Kong LPN Plan of Treatment Date Care Activity Detail Author Start: 02-03-2027 Lipid 1996 panel - Serum or Plasma Lipid Screening [facility] Start: 02-03-2027 LIPID SCREEN LIPID SCREEN [facility] Start: 10-28-2025 LIPID SCREEN LIPID SCREEN [facility] Start: 05-30-2025 Colonoscopy COLONOSCOPY [facility] Start: 05-30-2025 COLORECTAL CANCER SCREENING COLORECTAL CANCER SCREENING [facility] Start: 12-22-2024 DIABETES [facility]CREEN [facility] Start: 12-22-2024 Diabetes Screening Diabetes Screenin g [facility] Start: 05-31-2023 Influenza vaccination [facility] Start: 04-19-2023 BP CONTROLLED (<130/80) BP CONTROLLE D (<130/80) [facility] Start: 02-06-2023 Mammography [facility] Start: 01-10-2023 BP CONTROLLED (<130/80) BP CONTROLLE D (<130/80) [facility] Start: 12-24-2022 End: 02-23-2023 Alpha tocopherol [Mass/volume] in Serum or Plasma [facility] Work Phone: Immunizations Immunization Date Immunization Notes Care Provider Fa [facility] 06-29-2022 influenza virus vacc ine, unspecified formulation Heather Sneed MD Work Phone: [facility] 07-22-2021 influenza, high-dose , quadrivalent vaccine (FLUZONE HIGH DOSE QUADRIVALENT) Genevieve Alfaro MD Work Phone: [facility] 12-22-2020 COVID-19 vaccine, fu ll dose (MODERNA) Genevieve Alfaro MD Work Phone: [facility] 11-24-2020 COVID-19 vaccine, fu ll dose (MODERNA) Genevieve Alfaro MD Work Phone: [facility] 07-02-2020 influenza, high-dose , quadrivalent vaccine (FLUZONE HIGH DOSE QUADRIVALENT) Genevieve Alfaro MD Work Phone: [facility] 07-20-2019 influenza, high dose seasonal, preservative-free Genevieve Alfaro MD Work Phone: [facility] 07-11-2018 influenza, high dose seasonal, preservative-free Genevieve Alfaro MD Work Phone: [facility] Work Phone: 07-11-2017 pneumococcal polysaccharide vaccine, 23 valent Genevieve Alfaro MD Work Phone: [facility] Work Phone: 08-16-2016 influenza, high dose seasonal, preservative-free Genevieve Alfaro MD Work Phone: [facility] 06-28-2016 pneumococcal conjuga te vaccine, 13 valent Genevieve Alfaro MD Work Phone: [facility] Work Phone: 06-26-2013 zoster vaccine, live Genevieve peterson MD Work Phone: [facility] 06-25-2006 tetanus and diphther ia toxoids, adsorbed, preservative free, for adult use (2 Lf of tetanus toxoid and 2 Lf of diphtheria toxoid) Genevieve Alfaro MD Work Phone: [facility] Payers Date Payer Category Payer Medicare [id number] 2019 Unknown MMO MMO MEDICARE SUPPLEMENT [id number] 2019-Present [phone] [address] [place] [address] Indemnity [id number] 2019 Unknown MMO MMO MEDICARE SUPPLEMENT [id number] 2019-Present [phone] [address] [place] [address] Indemnity [id number] 2017 Medicare MEDICARE MEDICAR E A AND B [id number] 2017-Present [phone] [address] [address] [place] [address] Medicare [id number] 2017 Medicare MEDICARE MEDICAR E A AND B [id number] 2017-Present [phone] [place] [address] Medicare [id number] 2016 Medicare [id number] Private Health Insurance [id number] Social History Date Type Detail Facility Start: 12-15-2018 End: 04-08-2023 Never smoker Never smoker [facility] Start: 11-07-2011 End: 12-24-2022 Tobacco smoking status NHIS Never smoked tobacco [facility] Start: 10-17-2021 End: 04-08-2023 Alcohol intake Current drinker of alcohol (finding) [facility] Start: 1950 Sex Assigned At Not on file [facility] Start: 12-19-2021 End: 04-19-2022 Exposure to SARS-CoV-2 (event) Not sure [facility] Start: 01-11-2022 End: 01-11-2022 Assertion Unknown if ever smoked [facility] Work Phone: Start: 11-07-2011 End: 12-24-2022 Tobacco use and exposure Smokeless tobacco non-user [facility] Start: 12-15-2018 End: 04-08-2023 Tobacco use panel [facility] Adult Depression Screening Assessment 0 [facility] Clinical Notes 02-18-2018 to 08-01-2023 Telephone Encounter - Prabha Mai RN - 04/08/2023 4:02 PM EDTTelephone Encounter - Leena Grande - 04/08/2023 3:15 PM EDTPatient Heather Somers MD - 04/08/2023 9:36 AM EDT Note Date & Type Note Facility 08-01-2023 Note HNO ID: [id number] Author: aCsh Galarza MD Service: ? Author Type: Physician Type: Progress Notes Filed: 08/01/2023 7:42 PM Note Text: [facility] - NEW PATIENT EVALUATION Primary Care Provider: Cash Arias DO [address] [facility] [address] [facility] [address] Dear Cash Arias DO: I had the pleasure of evaluating Ms. Talavera in our clinic today. As you know she is a 73 year old right-handed female who presents for evaluation of ET, RLS, neuropathy since years . She is seen with her . Subjective HISTORY OF PRESENT ILLNESS: Initial HPI Transitioning care from Dr. Sneed due to distance. Tremor started a few years ago. Mother had them too. Good and bad days. Sometimes affects writing. Dr. Sneed prescribed propranolol but she didn't start it. Tremors seem manageable. RLS for years. Starts when she goes to bed, on an airplane. On gabapentin 600 mg at bedtime. Not sure it helps. Would like to cut back. Neuropathy feels better with shoes. Legs feel tight. Later in the afternoon it can be worse. Balance is fine. Movement Disorders Medications Schedule - as of the start of the visit: Medications Other Movement Disorder Prior Therapies Gabapentin Questionnaires In addition, the following activities of daily living that may be affected by tremors were evaluated: Speaking: Not affected Feeding: Not affected Bringing Liquids to Mouth: Not affected Hygiene: Not affected Dressing: Not affected Writing: Affected (mild) Working: Not affected Number of falls in the Last Month: 0 Mood/Behavior Depression: PHQ-9 Score: 1 usually representing no significant (0-4) depression. Anxiety: LUCAS-7 Total Score: 2 usually representing no significant (0-4) anxiety. Finally, the following table shows the patient's overall global physical and mental health using the PROMIS scale: PROMIS-10 Flowsheet Row Office Visit from 08/01/2023 in Neurology Global Physical Health T Score 50.8 Global Mental Health T Score 48.3 0-10 Standard Pain Scale 5 *PROMIS-10 scoring scale: mean = 50, over 50 is above average, under 50 is below average Review of Systems Review of Systems Constitutional Negative for Fevers, Night Sweats, Weight Gain, Weight Loss and Fatigue Eyes Negative for Change in vison not corrected by glasses and Vision loss or change Hent Positive for Tinnitus Negative for Hearing Loss, Difficulty Swallowing and Recent change in speech or voice Cardiovascular Negative for Chest Pain, Lightheadedness and Leg pain with walking Respiratory Negative for SOB at rest, SOB with exertion, Cough, Wheezing and Snoring GI Positive for Constipation Negative for Blood in Stool, Abdominal Pain, Diarrhea, Nausea/Vomiting and Heartburn Negative for Urgency and Incontinence Endocrine Negative for Heat Intolerance, Excessive Thirst and Menstrual Cycle Irregularities Musculoskeletal Negative for Back Pain, Joint Swelling, Stiff Joints and Muscle Pain Integumentary Negative for Rashes, Itching, Other Lesions and Hair Changes Heme/Lymph Negative for Prolonged Bleeding, Easy Bruising and Swelling of Arm or Leg Allergy/Immunologic Negative for Nasal Congestion and Swollen Nodes Neurologic Negative for Memory Problems, Headache, Numbness/Tingling, Weakness, Double Vision, Trouble Swallowing and Slurred Speech Psychiatric Negative for Stress or Conflicts, Depression, Anxiety, Irritability, Hallucinations and Delusions Patient's Review of Systems has been reviewed with the patient and updated as appropriate. ALLERGIES Allergen Reactions Sulfamethoxazole Other: See Comments Very shaky Lipitor [Atorvastat* Myalgia Current Outpatient Medications Medication Sig Alpha Lipoic Acid 200 mg tab Take 1 tablet by mouth twice daily. simvastatin (ZOCOR) 40 mg tablet TAKE 1 TABLET BY MOUTH EVERYDAY AT BEDTIME albuterol HFA (PROAIR HFA) 90 mcg/actuation inhaler Inhale 2 Puffs as instructed every 4 hours as needed. Disp 1 inhaler with 11 refills ondansetron orally disintegrating (ZOFRAN ODT) 4 mg disintegrating tablet Take 1 tablet by mouth every 8 hours as needed for nausea/vomiting. sucralfate (CARAFATE) 1 gram tablet Take 1 tablet by mouth three times daily. levothyroxine (LEVOXYL) 88 mcg tablet Take 1 tablet by mouth once daily. Take on empty stomach. For Thyroid pantoprazole DR (PROTONIX) 40 mg tablet Take 1 tablet by mouth once daily. cholecalciferol, vitamin D3, (VITAMIN D3) 100 mcg (4,000 unit) cap Take 1 capsule by mouth once daily. acetaminophen (TYLENOL) 500 mg tablet Take 500 mg by mouth every 8 hours as needed. loratadine (CLARITIN) 10 mg tablet Take 1 tablet by mouth once daily. fluticasone (FLONASE) 50 mcg/actuation nasal spray Use 2 Sprays in each nostril once daily. Rinse mouth after use. estradiol (ESTRACE) 0.01 % (0.1 mg/gram) vaginal cream Use small amount at vaginal opening 3 nights a we (more content not included)... [facility] 07-01-2023 Note HNO ID: [id number] Author: Ej Pereira APRN.FURNITURE ARRANGER Service: ? Author Type: Nurse Practitioner Type: Progress Notes Filed: 07/01/2023 9:23 AM Note Text: Subjective HPI Nontoxic-appearing female presents to urgent care with chief complaint of upper respiratory tract like infection. Duration of symptoms 5 days. Associated symptoms sore throat, nasal congestion, nasal discharge and nonproductive cough. Has used OTC medications this has not helped. Patient states recent sick contacts with similar signs and symptoms. Patient denies any productive cough, fever, chest pain, shortness of breath, pleuritic pain, rash, abdominal pain, nausea, vomiting or change in bowel or bladder habit. Past medical history prescription medication use allergies reviewed. 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 Trochanteric bursitis of right hip 12/12/2012 PAST SURGICAL HISTORY Procedure Laterality Date APPENDECTOMY CATARACT SURGERY, COMPLEX 07/26/16 CHOLECYSTECTOMY 04/2003 CHOLECYSTECTOMY COLONOSCOPY FLX DX W/COLLJ SPEC WHEN PFRMD 11/10/2001 Colonoscopy COLONOSCOPY FLX DX W/COLLJ SPEC WHEN PFRMD 03/24/2008 Colonoscopy COLONOSCOPY FLX DX W/COLLJ SPEC WHEN PFRMD 02/08/16 Colonoscopy (MAC) COLONOSCOPY FLX DX W/COLLJ SPEC WHEN PFRMD 05/30/2020 Colonoscopy COLONOSCOPY W/BIOPSY SINGLE/MULTIPLE 04/18/12 DILATION AND CURETTAGE DXAND/THER NONOBSTETRIC ESOPHAGOGASTRODUODENOSCOPY TRANSORAL DIAGNOSTIC 07/22/2002 EGD ESOPHAGOGASTRODUODENOSCOPY TRANSORAL DIAGNOSTIC 05/22/2019 EGD ESOPHAGOGASTRODUODENOSCOPY TRANSORAL DIAGNOSTIC 05/30/2020 EGD HERNIA REPAIR HX 12/2018 w/ lysis of adhesions LAP COLECTOMY, SIGMOID W/HEARING SPECIALIST 11/11/2017 [facility]-Dr. Hayden Wolff PAST SURGICAL HISTORY OF LAPAROSCOPY FOR INFERTILITY PAST SURGICAL HISTORY OF 02/2011 right index finger ganglion cyst removal REPAIR FIRST ABDOMINAL WALL HERNIA 01/14/2019 Hernia repair, incisional, laparoscopic incarcerated incisional hernia rapair x 2 TOT ABD HYST W/WO RMVL TUBE OVARY W/COLPURETHRXY 1997 BIRCH TOTAL ABDOMINAL HYSTERECT W/WO RMVL TUBE OVARY 1997 ALLERGIES Lipitor [Atorvastatin Calcium] and Sulfamethoxazole MEDICATIONS gabapentin (NEURONTIN) 300 mg capsule Take 1 capsule by mouth daily at bedtime. propranolol ER (INDERAL LA) 60 mg 24 hr capsule Take 1 capsule by mouth once daily. Alpha Lipoic Acid 200 mg tab Take 1 tablet by mouth twice daily. simvastatin (ZOCOR) 40 mg tablet TAKE 1 TABLET BY MOUTH EVERYDAY AT BEDTIME albuterol HFA (PROAIR HFA) 90 mcg/actuation inhaler Inhale 2 Puffs as instructed every 4 hours as needed. Disp 1 inhaler with 11 refills ondansetron orally disintegrating (ZOFRAN ODT) 4 mg disintegrating tablet Take 1 tablet by mouth every 8 hours as needed for nausea/vomiting. sucralfate (CARAFATE) 1 gram tablet Take 1 tablet by mouth three times daily. levothyroxine (LEVOXYL) 88 mcg tablet Take 1 tablet by mouth once daily. Take on empty stomach. For Thyroid pantoprazole DR (PROTONIX) 40 mg tablet Take 1 tablet by mouth once daily. cholecalciferol, vitamin D3, (VITAMIN D3) 100 mcg (4,000 unit) cap Take 1 capsule by mouth once daily. acetaminophen (TYLENOL) 500 mg tablet Take 500 mg by mouth every 8 hours as needed. loratadine (CLARITIN) 10 mg tablet Take 1 tablet by mouth once daily. fluticasone (FLONASE) 50 mcg/actuation nasal spray Use 2 Sprays in each nostril once daily. Rinse mouth after use. estradiol (ESTRACE) 0.01 % (0.1 mg/gram) vaginal cream Use small amount at vaginal opening 3 nights a week for 4 weeks FAMILY HISTORY Problem Relation Age of Onset Heart Mother Hypertension Mother Stroke Mother other (low iron) Mother Heart Father 3 stents None Brother Coronary Artery Disease Brother No Known Problems Son No Known Problems Son Social History Tobacco Use Smoking status: Never Smokeless tobacco: Never Vaping Use Vaping Use: Never used Substance Use Topics Alcohol use: Yes Comment: rarely Drug use: No BP 122/74 Pulse 73 Temp 36.3 ?C (97.4 ?F) Resp 18 Wt 74.1 kg (163 lb 6.4 oz) SpO2 98% BMI 28.05 kg/m? Review of Systems Constitutional: Positive for malaise/fatigue. Negative for chills and fever. HENT: Positive for congestion and sore throat. Negative for ear discharge, ear pain and sinus pain. Eyes: Negative for blurred vision, pain, discharge and redness. Respiratory: Positive for cough. Negative for (more content not included)... [facility] 04-08-2023 Miscellaneous Notes Carotid Duplex study results in scanned documents for your review. Received fax from [facility] with Carotid Duplex Scan dated 01/10/23. Scanned into [employer]. documented in this encounter [facility] 04-08-2023 Note HNO ID: [id number] Author: Heather Sneed MD Service: ? Author Type: Physician Type: Progress Notes Filed: 04/08/2023 10:40 AM Note Text: [facility] Follow up/ Established patient visit Individuals who were included in, or assisted with the encounter were: Hallie Talavera Heather Sneed MD Chief Complaint/Issues: Hallie Talavera is a 72 year old R handed female w PMH HTN, HLP, hypothyroidism, seen in the [facility] for: RLS, essential tremor and neuropathy Most Recent Neurological Assessment and Plan: Last Filed Values Date of Most Recent Assessment and Plan 12/24/22 Specialty General Neurology Assessment Hallie Talavera is a 72 year old R handed female w PMH HTN, HLP, hypothyroidism, seen in the [facility] for: 1. RLS, essential tremor and neuropathy -- Polyneuropathy: There are length dependent feature. She has hypothyroidism and B12 deficiency which may be associated with neuropathy. No diabetes. I will check additional neuropathy labs. I discussed with her to try alpha lipoic acid and she agreed. --Restless leg syndrome: I will check her iron panel to see whether there are iron deficiency. Her neuropathy might have Exacerbated the restless leg syndrome. I discussed with her about increasing nighttime Neurontin. She will see whether she can tolerate it. Since it does not bother her during the day, she does not have to take the morning dose. -- Essential tremor: I discussed with her about the differences between essential tremor and Parkinson disease. We also discussed about the treatment. Her blood pressure is borderline. We may consider to try propanolol if it becomes a problem. --HTN --HLP --hypothyroidism --B12 deficiency Plan --Try alpha lipoic acid 200mg twice a day for neuropathy --Try neurontin 600mg at bedtime for restless leg syndrome. --neuropathy labs --may try propranolol for both hypertension and essential tremor --Follow up in 3-4 months HPI/Interval History: OV on 12/24/2022 She started to have numbness and tingling in her feet a few years ago. She feels that is being stable in the feet and the lower leg. Shortly after that right hand started to feel numb. It involves mainly the middle 3 fingers in the right hand. She feels heavy in his legs from knees down. She was put on neurontin for RLS. She takes Neurontin 300 mg bedtime and 100 mg in the morning. But she continues to wake up at night due to the restless leg syndrome. PCP is talking about increasing Neurontin to 600 mg daily. She denies any bowel or bladder issues. No vision issues. She has some tremor which is chronic.--her mom also has it. It tends to happen when she uses her hands. Is not bothering her that much right now. She had EMG a year ago and was told everything was normal. B12 333 in 2020. She has been on B12 supplement. 04/08/2023 She still feels heavy in her legs below the knees. Right side is worse than left. She also has bursitis in the right side which affects her walking. The numbness and tingling has not changed. She does not feel that alpha-lipoic acid is helpful. Her recent ankle/brachial index is 1.02 on the right and 0.91 on the left. She saw vascular And was told everything is okay. She is not on aspirin. She will see a order checker next week. RF, ANTONETTE, MMA, copper, syphilis, HIV, SPEP, UPEP were all negative. Vit E 26.5. She is on neurontin 600mg bedtime at night for RLS. It's been good. She is wondering whether it can be reduced to 300 mg at bedtime. The essential tremor bothers her sometimes. It comes and goes. She would like to try some medications for it. General Examination: BP 127/82 Pulse 92 Ht 162.6 cm (5' 4 ) Wt 74.5 kg (164 lb 4.8 oz) BMI 28.20 kg/m? General: Awake, alert, interactive, no acute distress, good nutritional status, normal development, well-kept Neurological Exam Mental Status Alert, fully oriented, attentive, with normal cognition, memory, speech and affect. Cranial Nerves Extraocular movements normal. No nystagmus, no ptosis, and pupils equal. Face symmetrical. Tongue normal. Motor Examination and Coordination Motor examination with normal bulk, strength and tone. No drift. Mild intention tremor L>R. No resting tremor or rigidity. Reflexes Deep tendon reflexes graded by [facility] Gait Arises easily. Casual gait and Romberg are normal. Assessment AND Plan 04/08/2023 - General Neurology, Heather Sneed MD ASSESSMENT Hallie Talavera is a 72 year old R handed female w PMH HTN, HLP, hypothyroidism, seen in the [facility] for: 1. RLS, essential tremor and neuropathy -- Numbness and weakness in the lower legs: Likely multifactorial due to the circulatory issues, arthritis, and may be superimposed small fiber polyneuropathy. I asked her to follow-up with her PCP and vascular (more content not included)... [facility] 04-08-2023 Instructions Heather Sneed MD - 04/08/2023 10:08 AM EDT --Please discuss with your order checker about whether it's ok for you to stay on propranolol for essential tremor. Stop it if you feel heart racing or blood pressure is low. --You can reduce neurontin to 300mg bedtime. Let me know if your restless leg syndrome gets worse. We can increase it back to 600mg in that case. --Follow up with your vascular doctor about the abnormal ankle/brachial index--the blood flow issues in your leg. --Follow up in 6 months documented in this encounter [facility] 04-08-2023 History of Presen t illness Narrative Images from the original note were not included. [facility] Follow up/ Established patient visit Individuals who were included in, or assisted with the encounter were: Hallie Talavera Heather Sneed MD Chief Complaint/Issues: Hallie Talavera is a 72 year old R handed female w PMH HTN, HLP, hypothyroidism, seen in the [facility] for: RLS, essential tremor and neuropathy Most Recent Neurological Assessment and Plan: Last Filed Values Date of Most Recent Assessment and Plan 12/24/22 Specialty General Neurology Assessment Hallie Talavera is a 72 year old R handed female w PMH HTN, HLP, hypothyroidism, seen in the [facility] for: 1. RLS, essential tremor and neuropathy -- Polyneuropathy: There are length dependent feature. She has hypothyroidism and B12 deficiency which may be associated with neuropathy. No diabetes. I will check additional neuropathy labs. I discussed with her to try alpha lipoic acid and she agreed. --Restless leg syndrome: I will check her iron panel to see whether there are iron deficiency. Her neuropathy might have Exacerbated the restless leg syndrome. I discussed with her about increasing nighttime Neurontin. She will see whether she can tolerate it. Since it does not bother her during the day, she does not have to take the morning dose. -- Essential tremor: I discussed with her about the differences between essential tremor and Parkinson disease. We also discussed about the treatment. Her blood pressure is borderline. We may consider to try propanolol if it becomes a problem. --HTN --HLP --hypothyroidism --B12 deficiency Plan --Try alpha lipoic acid 200mg twice a day for neuropathy --Try neurontin 600mg at bedtime for restless leg syndrome. --neuropathy labs --may try propranolol for both hypertension and essential tremor --Follow up in 3-4 months HPI/Interval History: OV on 12/24/2022 She started to have numbness and tingling in her feet a few years ago. She feels that is being stable in the feet and the lower leg. Shortly after that right hand started to feel numb. It involves mainly the middle 3 fingers in the right hand. She feels heavy in his legs from knees down. She was put on neurontin for RLS. She takes Neurontin 300 mg bedtime and 100 mg in the morning. But she continues to wake up at night due to the restless leg syndrome. PCP is talking about increasing Neurontin to 600 mg daily. She denies any bowel or bladder issues. No vision issues. She has some tremor which is chronic.--her mom also has it. It tends to happen when she uses her hands. Is not bothering her that much right now. She had EMG a year ago and was told everything was normal. B12 333 in 2020. She has been on B12 supplement. 04/08/2023 She still feels heavy in her legs below the knees. Right side is worse than left. She also has bursitis in the right side which affects her walking. The numbness and tingling has not changed. She does not feel that alpha-lipoic acid is helpful. Her recent ankle/brachial index is 1.02 on the right and 0.91 on the left. She saw vascular DrCharmaine And was told everything is okay. She is not on aspirin. She will see a order checker next week. RF, ANTONETTE, MMA, copper, syphilis, HIV, SPEP, UPEP were all negative. Vit E 26.5. She is on neurontin 600mg bedtime at night for RLS. It's been good. She is wondering whether it can be reduced to 300 mg at bedtime. The essential tremor bothers her sometimes. It comes and goes. She would like to try some medications for it. General Examination: BP 127/82 Pulse 92 Ht 162.6 cm (5' 4 ) Wt 74.5 kg (164 lb 4.8 oz) BMI 28.20 kg/m General: Awake, alert, interactive, no acute distress, good nutritional status, normal development, well-kept Neurological Exam Mental Status Alert, fully oriented, attentive, with normal cognition, memory, speech and affect. Cranial Nerves Extraocular movements normal. No nystagmus, no ptosis, and pupils equal. Face symmetrical. Tongue normal. Motor Examination and Coordination Motor examination with normal bulk, strength and tone. No drift. Mild intention tremor L>R. No resting tremor or rigidity. Reflexes Deep tendon reflexes graded by [facility] Gait Arises easily. Casual gait and Romberg are normal. Assessment & Plan 04/08/2023 - General Neurology, Heather Sneed MD ASSESSMENT Hallie Talavera is a 72 year old R handed female w PMH HTN, HLP, hypothyroidism, seen in the [facility] for: 1. RLS, essential tremor and neuropathy -- Numbness and weakness in the lower legs: Likely multifactorial due to the circulatory issues, arthritis, and may be superimposed small fiber polyneuropathy. I asked her to follow-up with her PCP and vascular doctor. 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 She has hypothyroidism and B12 deficiency which may be associated with neuropathy. No diabetes. I checked additional neuropathy labs and they were negative. --Restless leg syndrome: iron panel was okay. She is doing well on Neurontin 600 mg at bedtime. But she would like to reduce it. I discussed with her that we can try a lower dose. If it gets worse, she will let me know and we can increase it back to 600 mg. -- Essential tremor: She would like to try propanolol. She says she is not taking the metoprolol although it is on her medication list. In that case, I will give her the prescription of propanolol. Side effects were discussed in detail. She will also discuss about this with her order checker at the upcoming cardiology appointment. --HTN --HLP --hypothyroidism --B12 deficiency: Supplemented PLAN -- We will try propanolol 60 mg daily. She will discuss about it with her order checker. She was stopped at if she feels heart racing or blood pressure is low. --reduce neurontin to 300mg bedtime. --Follow up with her vascular doctor about the abnormal ankle/brachial index --Follow up in 6 months No diagnosis found. No follow-ups on file. = Data Review Objective Current Outpatient Medications Medication Sig gabapentin (NEURONTIN) 300 mg capsule Take 300 mg by mouth every morning. Alpha Lipoic Acid 200 mg tab Take 1 tablet by mouth twice daily. simvastatin (ZOCOR) 40 mg tablet TAKE 1 TABLET BY MOUTH EVERYDAY AT BEDTIME albuterol HFA (PROAIR HFA) 90 mcg/actuation inhaler Inhale 2 Puffs as instructed every 4 hours as needed. Disp 1 inhaler with 11 refills ondansetron orally disintegrating (ZOFRAN ODT) 4 mg disintegrating tablet Take 1 tablet by mouth every 8 hours as needed for nausea/vomiting. sucralfate (CARAFATE) 1 gram tablet Take 1 tablet by mouth three times daily. metoprolol succinate ER (TOPROL XL) 25 mg 24 hr tablet Take 1 tablet by mouth once daily. levothyroxine (LEVOXYL) 88 mcg tablet Take 1 tablet by mouth once daily. Take on empty stomach. For Thyroid pantoprazole DR (PROTONIX) 40 mg tablet Take 1 tablet by mouth once daily. cholecalciferol, vitamin D3, (VITAMIN D3) 100 mcg (4,000 unit) cap Take 1 capsule by mouth once daily. acetaminophen (TYLENOL) 500 mg tablet Take 500 mg by mouth every 8 hours as needed. loratadine (CLARITIN) 10 mg tablet Take 1 tablet by mouth once daily. fluticasone (FLONASE) 50 mcg/actuation nasal spray Use 2 Sprays in each nostril once daily. Rinse mouth after use. estradiol (ESTRACE) 0.01 % (0.1 mg/gram) vaginal cream Use small amount at vaginal opening 3 nights a week for 4 weeks gabapentin (NEURONTIN) 100 mg capsule Take 1 capsule by mouth twice daily for 30 days. No current facility-administered medications for this visit. ACTIVE PROBLEM LIST Hyperlipidemia Ldl Goal <100 Hypothyroidism Gerd (Gastroesophageal Reflux Disease) Restless Legs Syndrome Tremor, Essential Benign Neoplasm of Colon Diverticulosis of Large Intestine Vitamin D Deficiency Trochanteric Bursitis of Right Hip Postmenopausal Atrophic Vaginitis Essential hypertension, Osteopenia Seasonal Allergies Thrombocytopenia (Hcc) Left Kidney Mass Right Lower Quadrant Abdominal Pain Liver Mass, Left Lobe Incisional Hernia, Without Obstruction Or Gangrene Pac (Premature Atrial Contraction) Lumbar Radiculopathy Ddd (Degenerative Disc Disease), Lumbar Acute Pain of Right Knee Chronic Constipation Chronic Nausea Numbness and Tingling of Both Lower Extremities Polyneuropathy Other dietary vitamin B12 deficiency anemia PAST MEDICAL HISTORY Diagnosis Date Benign neoplasm of colon Chronic constipation 04/11/2021 Chronic nausea 04/11/2021 Cyst of kidney, acquired Cyst of left kidney Diverticulosis of colon with hemorrhage sigmoid Esophagitis Essential hypertension, benign 11/08/2014 GERD (gastroesophageal reflux disease) 05/26/2009 Hypothyroidism IBS (irritable bowel syndrome) Seasonal allergies allergy injections Sebaceous cyst of left axilla 06/06/2018 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 Trochanteric bursitis of right hip 12/12/2012 PAST SURGICAL HISTORY Procedure Laterality Date APPENDECTOMY CATARACT SURGERY, COMPLEX 07/26/16 CHOLECYSTECTOMY 04/2003 CHOLECYSTECTOMY COLONOSCOPY FLX DX W/COLLJ SPEC WHEN PFRMD 11/10/2001 Colonoscopy COLONOSCOPY FLX DX W/COLLJ SPEC WHEN PFRMD 03/24/2008 Colonoscopy COLONOSCOPY FLX DX W/COLLJ SPEC WHEN PFRMD 02/08/16 Colonoscopy (MAC) COLONOSCOPY FLX DX W/COLLJ SPEC WHEN PFRMD 05/30/2020 Colonoscopy COLONOSCOPY W/BIOPSY SINGLE/MULTIPLE 04/18/12 DILATION & CURETTAGE DX&/THER NONOBSTETRIC ESOPHAGOGASTRODUODENOSCOPY TRANSORAL DIAGNOSTIC 07/22/2002 EGD ESOPHAGOGASTRODUODENOSCOPY TRANSORAL DIAGNOSTIC 05/22/2019 EGD ESOPHAGOGASTRODUODENOSCOPY TRANSORAL DIAGNOSTIC 05/30/2020 EGD HERNIA REPAIR HX 12/2018 w/ lysis of adhesions LAP COLECTOMY, SIGMOID W/HEARING SPECIALIST 11/11/2017 [facility]-Dr. Hayden Wolff PAST SURGICAL HISTORY OF LAPAROSCOPY FOR INFERTILITY PAST SURGICAL HISTORY OF 02/2011 right index finger ganglion cyst removal REPAIR FIRST ABDOMINAL WALL HERNIA 01/14/2019 Hernia repair, incisional, laparoscopic incarcerated incisional hernia rapair x 2 TOT ABD HYST W/WO RMVL TUBE OVARY W/COLPURETHRXY 1997 BIRCH TOTAL ABDOMINAL HYSTERECT W/WO RMVL TUBE OVARY 1998 Social History Tobacco Use Smoking status: Never Smokeless tobacco: Never Vaping Use Vaping Use: Never used Substance Use Topics Alcohol use: Yes Comment: rarely Drug use: No FAMILY HISTORY Problem Relation Age of Onset Heart Mother Hypertension Mother Stroke Mother other (low iron) Mother Heart Father 3 stents None Brother Coronary Artery Disease Brother No Known Problems Son No Known Problems Son Review of Systems Lab and Test Review: Results for orders placed or performed in visit on 12/24/22 METHYLMALONIC ACID Result Value Ref Range Methylmalonic Acid 172 79 - 376 nmol/L FOLATE SERUM Result Value Ref Range Folate 10.5 >4.7 ng/mL RHEUMATOID FACTOR BL Result Value Ref Range Rheumatoid Factor <10 <16 IU/mL IRON + TIBC Result Value Ref Range Iron 103 41 - 186 ug/dL TIBC 270 232 - 386 ug/dL Transferrin Saturation 38.1 20.0 - 55.0 % COPPER BLOOD Result Value Ref Range Copper 119 80 - 155 ug/dL VITAMIN E/TOCOPHEROL Result Value Ref Range Vitamin E-alpha 26.5 (H) 6.0 - 23.0 mg/L Vitamin E-gamma 0.5 0.3 - 3.2 mg/L VICKY BLOOD Result Value Ref Range VICKY Scr Qual Negative Negative SYPHILIS TOTAL W/REFLEX Result Value Ref Range Syphilis Total Screen Nonreactive Nonreactive Syphilis Interpretation Cannot exclude recent Treponemal infection if specimen collected within 7-10 days after appearance of suspect lesions or 2-3 weeks after an exposure. Clinical correlation is required. HIV 1 2 COMBO(AG/AB),WITH REFLEX TO DIFFERENTIATION Result Value Ref Range HIV 12 Combo (Ag/Ab) Nonreactive Nonreactive HIV-1/2 AB (Confirmatory) HIV Interpretation STORM IGG AB Result Value Ref Range SM Antibody Qual Negative Negative SM Antibody <0.2 <1.0 AI CONCRETE RUBBER ANTIBODY BLOOD Result Value Ref Range CONCRETE RUBBER Antibody QUAL Negative Negative CONCRETE RUBBER Antibody <0.2 <1.0 AI ANTI SSA BLD Result Value Ref Range SSA Antibody Qual Negative Negative SSA Antibody IgG <0.2 <1.0 AI ANTI SSB BLD Result Value Ref Range SSB Antibody <0.2 <1.0 AI SSB Antibody Qual Negative Negative ANTI-CENTROMERE AB Result Value Ref Range CENTROMERE AB QUAL Negative Negative Centromere Ab <0.2 <1.0 AI SCLERODERMA IGG AB Result Value Ref Range Scleroderma Ab Qual Negative Negative Scleroderma Ab, IgG 0.2 <1.0 AI DARA-1 AB Result Value Ref Range DARA 1 ANTIBODY QUAL Negative Negative Dara 1 Antibody <0.2 <1.0 AI RIBOSOMAL CONCRETE RUBBER AB BLD Result Value Ref Range Ribosomal CONCRETE RUBBER Qualitative Negative Negative Ribosomal CONCRETE RUBBER <0.2 <1.0 AI CHROMATIN ANTIBODY Result Value Ref Range CHROMATIN AB QUAL Negative Negative Chromatin Antibody <0.2 <1.0 AI PROTEIN TOTAL BLD Result Value Ref Range Protein, Total 6.5 6.3 - 8.0 g/dL PROTEIN ELECTROPHORESIS SERUM (P) Result Value Ref Range Albumin for SPE 4.22 3.43 - 5.41 g/dL Alpha 1 Globulin 0.28 0.18 - 0.43 g/dL Alpha 2 Globulin 0.78 0.42 - 0.98 g/dL Beta Globulin 0.67 0.61 - 1.17 g/dL Gamma Globulin 0.54 0.53 - 1.51 g/dL Interpretation (Prot Electro) No definitive M protein is identified on protein electrophoresis. No definitive M protein is identified on protein electrophoresis. M-Protein Location M-Protein Concentration 0.00 <=0.00 g/dL SPE Staff Review Reviewed by Dr. Senait Mai MD PROTEIN RANDOM UR Result Value Ref Range Protein, Urine Random 7 0 - 20 mg/dL URINE PROTEIN ELECTROPHORESIS RANDOM (P) Result Value Ref Range Albumin %, Urine (Prot Electro) 38.25 % Alpha 1 Globulin %, Urine 9.45 % Alpha 2 Globulin %, Urine 19.02 % Beta Globulin %, Urine 17.74 % Gamma Globulin %, Urine 15.53 % Interpretation (Urine Electro) No definitive M protein is identified on protein electrophoresis. No definitive M protein is identified on protein electrophoresis. Interpretation Comment for Protein Electrophoresis The absence of M-protein on urine protein electrophoresis does not entirely exclude the presence of monoclonal gammopathy in urine. Monoclonal protein analysis (immunofixation), a more definitive test to exclude monoclonal gammopathy, may be requested on this specimen if clinically indicated. Staff Review (Urine Electro) Reviewed by Dr. Senait Mai MD *Note: Due to a large number of results and/or encounters for the requested time period, some results have not been displayed. A complete set of results can be found in Results Review. Outside Data/Labs: Subjective Patient-Entered Data: 04/08/23 - GENERAL NEUROLOGY SCORES No flowsheet data found. Depression Screening 08/16/2016 10/02/2017 12/15/2018 PHQ-2 Score 0 0 0 No flowsheet data found. No flowsheet data found. No flowsheet data found. I spent a total of 40 minutes on the date of the service which included preparing to see the patient, [id number] patient care, completing clinical documentation, obtaining and/or reviewing separately obtained history, performing a medically appropriate examination, counseling and educating the patient/family/caregiver, ordering medications, tests, or procedures, independently interpreting results (not separately reported), communicating results to the patient/family/caregiver, and care coordination (not separately reported). Heather Sneed MD documented in this encounter [facility] 01-01-2023 Note Patient Outreach (NE TNAV) HALLIE TALAVERA ([id number]) 1950 F Date Time Provider Department 01/01/23 YOMAIRA NG During your visit today, we recorded the following information about you: Yomaira Ng MA 01/01/2023 1:49 PM Addendum POPULATION HEALTH NAVIGATION OUTREACH Action/ INVALID NUMBER [employer] MESSAGE SENT Patient reply thru [id number]. She was a new PCP. D69.6 - Thrombocytopenia (HCC) - [id number] Last Billed 10/17/2021 ANNUAL MEDICARE WELLNESS ANNUAL PCP TEAM CHRONIC DISEASE VISIT due on 08/14/2022 MAMMOGRAM due on 02/06/2023 Patient Identified by Name and : NO Outreach Outcome/Action Unable to reach patient: Phone number not valid / voicemail full [employer] message sent PCP field updated Did you use a PCP flex slot to schedule this appointment? N/A Reason for Outreach Care Gap or Scheduling/Wellness visits Payer: Payor: MEDICARE / Plan: MEDICARE A AND B / Product Type: Medicare / Care Gap Reviewed:: Annual Wellness visit Breast Cancer screening Reminder: Reminder note to check Health Maintenance for items below Health Maintenance items due: DTAP,TDAP,TD(1 - Tdap) due on 06/26/2006 SHINGRIX VACCINE(2 of 3) due on 08/21/2013 COVID-19 VACCINE(3 - Booster for Moderna series) due on 02/16/2021 ANNUAL PCP TEAM CHRONIC DISEASE VISIT due on 08/14/2022 ADVANCE DIRECTIVE DISCUSSION due on 09/30/2022 DEPRESSION ASSESSMENT Never done MAMMOGRAM due on 02/06/2023 Navigation Signature: Yomaira Ng MA January 01, 2023 8:09 AM Allergies As of Date: 01/01/2023 Noted Allergy Reaction LIPITOR (ATORVASTATIN CALCIUM) 12/17/2006 Comments: myalgia SULFAMETHOXAZOLE 11/01/2020 14 - Other: See Comments Comments: Very Shaky Date Reviewed: 12/24/2022 Reviewed by: SHIVANI Bragg - Fully Assessed Reason for Visit: Population Health Navigation Outreach [3910] Cmt: HCC GAPS Prescriptions as of 01/01/2023 - gabapentin (NEURONTIN) 300 mg capsule Take 300 mg by mouth every morning. - Alpha Lipoic Acid 200 mg tab Take 1 tablet by mouth twice daily. - simvastatin (ZOCOR) 40 mg tablet TAKE 1 TABLET BY MOUTH EVERYDAY AT BEDTIME - albuterol HFA (PROAIR HFA) 90 mcg/actuation inhaler Inhale 2 Puffs as instructed every 4 hours as needed. Disp 1 inhaler with 11 refills - ondansetron orally disintegrating (ZOFRAN ODT) 4 mg disintegrating tablet Take 1 tablet by mouth every 8 hours as needed for nausea/vomiting. - sucralfate (CARAFATE) 1 gram tablet Take 1 tablet by mouth three times daily. - metoprolol succinate ER (TOPROL XL) 25 mg 24 hr tablet Take 1 tablet by mouth once daily. - gabapentin (NEURONTIN) 100 mg capsule Take 1 capsule by mouth twice daily for 30 days. - levothyroxine (LEVOXYL) 88 mcg tablet Take 1 tablet by mouth once daily. Take on empty stomach. For Thyroid - pantoprazole DR (PROTONIX) 40 mg tablet Take 1 tablet by mouth once daily. - cholecalciferol, vitamin D3, (VITAMIN D3) 100 mcg (4,000 unit) cap Take 1 capsule by mouth once daily. - acetaminophen (TYLENOL) 500 mg tablet Take 500 mg by mouth every 8 hours as needed. - loratadine (CLARITIN) 10 mg tablet Take 1 tablet by mouth once daily. - fluticasone (FLONASE) 50 mcg/actuation nasal spray Use 2 Sprays in each nostril once daily. Rinse mouth after use. - estradiol (ESTRACE) 0.01 % (0.1 mg/gram) vaginal cream Use small amount at vaginal opening 3 nights a week for 4 weeks Problem List As Of Date 01/01/2023 Noted Resolved Hyperlipidemia LDL goal <100 [E78.5] 06/25/2006 Hypothyroidism [E03.9] 12/17/2006 GERD (Gastroesophageal Reflux Disease) [K21.9] 05/26/2009 Restless Legs Syndrome [G25.81] 05/26/2009 Tremor, Essential [G25.0] 05/26/2009 Benign neoplasm of colon [D12.6] 04/18/2012 Diverticulosis of large intestine [K57.30] 04/18/2012 Vitamin d deficiency [E55.9] 07/10/2012 Trochanteric bursitis of right hip [M70.61] 12/12/2012 Postmenopausal atrophic vaginitis [N95.2] 06/14/2014 Essential hypertension, [I10] 11/08/2014 Osteopenia [M85.80] 03/07/2015 Abnormal finding on chest xray [R93.89] 2015 02/14/2017 Seasonal allergies [J30.2] 01/30/2016 Thrombocytopenia (HCC) [D69.6] 01/30/2016 Dysuria [R30.0] 03/27/2016 02/14/2017 Left kidney mass [N28.89] 02/14/2017 Right lower quadrant abdominal pain [R10.31] 02/18/2018 Chronic post-operative pain [G89.28] 02/18/2018 07/23/2018 Liver mass, left lobe [R16.0] 02/18/2018 Incisional hernia, without obstruction or gangr*07/23/2018 PAC (premature atrial contraction) [I49.1] 12/15/2018 Lumbar radiculopathy [M54.16] 02/29/2020 DDD (degenerative disc disease), lumbar [M51.36]02/29/2020 Acute pain of right knee [M25.561] 02/28/2021 Chronic constipation [K59.09] 04/11/2021 Chronic nausea [R11.0] 04/11/2021 Numbness and tingling of both lower extremities*04/11/2021 Polyneuropathy [G62.9] 12/24/2022 Other dietary vitamin (more content not included)... [facility] 01-01-2023 Note HNO ID: [id number] Author: Yomaira Ng MA Service: ? Author Type: Flight Engineer Instructor Type: Progress Notes Filed: 01/01/2023 1:49 PM Note Text: POPULATION HEALTH NAVIGATION OUTREACH Action/FYI INVALID NUMBER [email or web address] MESSAGE SENT Patient reply thru Mychart. She was a new PCP. D69.6 - Thrombocytopenia ([facility]) - [id number] Last Billed 10/17/2021 ANNUAL MEDICARE WELLNESS ANNUAL PCP TEAM CHRONIC DISEASE VISIT due on 08/14/2022 MAMMOGRAM due on 02/06/2023 Patient Identified by Name and : NO Outreach Outcome/Action Unable to reach patient: Phone number not valid / voicemail full MyChart message sent PCP field updated Did you use a PCP flex slot to schedule this appointment? N/A Reason for Outreach Care Gap or Scheduling/Wellness visits Payer: Payor: MEDICARE / Plan: MEDICARE A AND B / Product Type: Medicare / Care Gap Reviewed:: Annual Wellness visit Breast Cancer screening Reminder: Reminder note to check Health Maintenance for items below Health Maintenance items due: DTAP,TDAP,TD(1 - Tdap) due on 06/26/2006 SHINGRIX VACCINE(2 of 3) due on 08/21/2013 COVID-19 VACCINE(3 - Booster for Moderna series) due on 02/16/2021 ANNUAL PCP TEAM CHRONIC DISEASE VISIT due on 08/14/2022 ADVANCE DIRECTIVE DISCUSSION due on 09/30/2022 DEPRESSION ASSESSMENT Never done MAMMOGRAM due on 02/06/2023 Navigation Signature: Yomaira Ng MA January 01, 2023 8:09 AM [facility] 01-01-2023 History of Presen t illness Narrative POPULATION HEALTH NAVIGATION OUTREACH Action/FYI INVALID NUMBER [employer] MESSAGE SENT Patient reply thru [employer]. She was a new PCP. D69.6 - Thrombocytopenia ([facility]) - [id number] Last Billed 10/17/2021 ANNUAL MEDICARE WELLNESS ANNUAL PCP TEAM CHRONIC DISEASE VISIT due on 08/14/2022 MAMMOGRAM due on 02/06/2023 Patient Identified by Name and : NO Outreach Outcome/Action Unable to reach patient: Phone number not valid / voicemail full MyChart message sent PCP field updated Did you use a PCP flex slot to schedule this appointment? N/A Reason for Outreach Care Gap or Scheduling/Wellness visits Payer: Payor: MEDICARE / Plan: MEDICARE A AND B / Product Type: Medicare / Care Gap Reviewed:: Annual Wellness visit Breast Cancer screening Reminder: Reminder note to check Health Maintenance for items below Health Maintenance items due: DTAP,TDAP,TD(1 - Tdap) due on 06/26/2006 SHINGRIX VACCINE(2 of 3) due on 08/21/2013 COVID-19 VACCINE(3 - Booster for Moderna series) due on 02/16/2021 ANNUAL PCP TEAM CHRONIC DISEASE VISIT due on 08/14/2022 ADVANCE DIRECTIVE DISCUSSION due on 09/30/2022 DEPRESSION ASSESSMENT Never done MAMMOGRAM due on 02/06/2023 Navigation Signature: oYmaira Ng MA January 01, 2023 8:09 AM documented in this encounter [facility] 12-24-2022 Note HNO ID: [id number] Author: Heather Sneed MD Service: ? Author Type: Physician Type: Progress Notes Filed: 12/24/2022 3:45 PM Note Text: [facility] New Patient Evaluation Consulting Provider: SELF Individuals who were included in, or assisted with the encounter were: Hallie Talavera Heather Sneed MD Chief Complaint/Issues: Hallie Talavera is a 72 year old R handed female w PMH HTN, HLP, hypothyroidism, seen in the [facility] for: RLS, essential tremor and neuropathy HPI: She started to have numbness and tingling in her feet a few years ago. She feels that is being stable in the feet and the lower leg. Shortly after that right hand started to feel numb. It involves mainly the middle 3 fingers in the right hand. She feels heavy in his legs from knees down. She was put on neurontin for RLS. She takes Neurontin 300 mg bedtime and 100 mg in the morning. But she continues to wake up at night due to the restless leg syndrome. PCP is talking about increasing Neurontin to 600 mg daily. She denies any bowel or bladder issues. No vision issues. She has some tremor which is chronic.--her mom also has it. It tends to happen when she uses her hands. Is not bothering her that much right now. She had EMG a year ago and was told everything was normal. 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 B12 333 in 2020. She has been on B12 supplement. General Examination: BP 139/74 Pulse 72 Temp 36.4 ?C (97.6 ?F) Wt 72.8 kg (160 lb 6.4 oz) BMI 27.53 kg/m? General: Awake, alert, interactive, no acute distress, good nutritional status, normal development, well-kept Skin: Rash: absent Pigmentation: absent HEENT: Head: normocephalic, no dysmorphism Eyes: normal Oropharynx: normal Neck: Carotid bruit: absent Movements: free Lymphadenopathy: absent Extremities: Deformity/contracture: absent Distal pulses: present Edema: absent Trophic change: absent Spine: Deformity: absent Heart: Regular S1 S2 normal Lungs: Clear to auscultation Abdomen: Soft, nontender Neurological Exam Mental Status Alert, fully oriented, attentive, with normal cognition, memory, speech and affect. Cranial Nerves Visual bales intact. Fundi with normal discs and vasculature. Pupils reactive. Extraocular movements conjugate and full. No ptosis. No nystagmus. Facial sensation intact. Face symmetric and strong. Palate and tongue normal. XI normal. Motor Examination and Coordination Motor examination with normal bulk, strength and tone. No drift. Normal rapid alternating movements and coordination. Mild head tremor and action tremor in both hands. Reflexes Deep tendon reflexes graded by MRC Deep Tendon Reflexes Right Left Biceps 2+ 2+ Triceps 2+ 2+ Brachioradialis 2+ 2+ Patellar 2+ 2+ Achilles 2+ 2+ Plantar Downgoing Downgoing Sensation Sensation reduced to light touch, pinprick in a glove and stocking distribution up to the wrist in the hands and up to higher tibia in the legs. Intact proprioception, reduced vibration in both feet. Gait Arises easily. Casual gait, tandem, and Romberg are normal. Can rise on heels and toes. Assessment AND Plan 12/24/2022 - General Neurology, Heather Sneed MD ASSESSMENT Hallie Talavera is a 72 year old R handed female w PMH HTN, HLP, hypothyroidism, seen in the [facility] for: 1. RLS, essential tremor and neuropathy -- Polyneuropathy: There are length dependent feature. She has hypothyroidism and B12 deficiency which may be associated with neuropathy. No diabetes. I will check additional neuropathy labs. I discussed with her to try alpha lipoic acid and she agreed. --Restless leg syndrome: I will check her iron panel to see whether there are iron deficiency. Her neuropathy might have Exacerbated the restless leg syndrome. I discussed with her about increasing nighttime Neurontin. She will see whether she can tolerate it. Since it does not bother her during the day, she does not have to take the morning dose. -- Essential tremor: I discussed with her about the differences between essential tremor and Parkinson disease. We also discussed about the treatment. Her blood pressure is borderline. We may consider to try propanolol if it becomes a problem. --HTN --HLP --hypothyroidism --B12 deficiency PLAN --Try alpha lipoic acid 200mg twice a day for neuropathy --Try neurontin 600mg at bedtime for restless leg syndrome. --neuropathy labs --may try propranolol for both hypertension and essential tremor --Follow up in 3-4 months No diagnosis found. No follow-ups on file. = Data Review Objective Current Outpatient Medications Medication Sig - simvastatin (ZOCOR) 40 mg tablet TAKE 1 TABLET BY MOUTH EVERYDAY AT BEDTIME - albuterol HFA (PROAIR HFA) 90 m (more content not included)... [facility] 12-24-2022 Instructions Heather Sneed MD - 12/24/2022 2:05 PM EDT --Try alpha lipoic acid 200mg twice a day for neuropathy --Try neurontin 600mg at bedtime for restless leg syndrome. You may stop morning dose if it doesn't work --We will do blood test today to rule out other causes of neuropathy --You may try propranolol for both hypertension and essential tremor --Follow up in 3-4 months documented in this encounter [facility] 12-24-2022 History of Presen t illness Narrative Images from the original note were not included. [facility] New Patient Evaluation Consulting Provider: SELF Individuals who were included in, or assisted with the encounter were: Hallie Talavera Heather Sneed MD Chief Complaint/Issues: Hallie Talavera is a 72 year old R handed female w PMH HTN, HLP, hypothyroidism, seen in the [facility] for: RLS, essential tremor and neuropathy HPI: She started to have numbness and tingling in her feet a few years ago. She feels that is being stable in the feet and the lower leg. Shortly after that right hand started to feel numb. It involves mainly the middle 3 fingers in the right hand. She feels heavy in his legs from knees down. She was put on neurontin for RLS. She takes Neurontin 300 mg bedtime and 100 mg in the morning. But she continues to wake up at night due to the restless leg syndrome. PCP is talking about increasing Neurontin to 600 mg daily. She denies any bowel or bladder issues. No vision issues. She has some tremor which is chronic.--her mom also has it. It tends to happen when she uses her hands. Is not bothering her that much right now. She had EMG a year ago and was told everything was normal. 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 B12 333 in 2020. She has been on B12 supplement. General Examination: BP 139/74 Pulse 72 Temp 36.4 C (97.6 F) Wt 72.8 kg (160 lb 6.4 oz) BMI 27.53 kg/m General: Awake, alert, interactive, no acute distress, good nutritional status, normal development, well-kept Skin: Rash: absent Pigmentation: absent HEENT: Head: normocephalic, no dysmorphism Eyes: normal Oropharynx: normal Neck: Carotid bruit: absent Movements: free Lymphadenopathy: absent Extremities: Deformity/contracture: absent Distal pulses: present Edema: absent Trophic change: absent Spine: Deformity: absent Heart: Regular S1 S2 normal Lungs: Clear to auscultation Abdomen: Soft, nontender Neurological Exam Mental Status Alert, fully oriented, attentive, with normal cognition, memory, speech and affect. Cranial Nerves Visual bales intact. Fundi with normal discs and vasculature. Pupils reactive. Extraocular movements conjugate and full. No ptosis. No nystagmus. Facial sensation intact. Face symmetric and strong. Palate and tongue normal. XI normal. Motor Examination and Coordination Motor examination with normal bulk, strength and tone. No drift. Normal rapid alternating movements and coordination. Mild head tremor and action tremor in both hands. Reflexes Deep tendon reflexes graded by MRC Deep Tendon Reflexes Right Left Biceps 2+ 2+ Triceps 2+ 2+ Brachioradialis 2+ 2+ Patellar 2+ 2+ Achilles 2+ 2+ Plantar Downgoing Downgoing Sensation Sensation reduced to light touch, pinprick in a glove and stocking distribution up to the wrist in the hands and up to higher tibia in the legs. Intact proprioception, reduced vibration in both feet. Gait Arises easily. Casual gait, tandem, and Romberg are normal. Can rise on heels and toes. Assessment & Plan 12/24/2022 - General Neurology, Heather Sneed MD ASSESSMENT Hallie Talavera is a 72 year old R handed female w PMH HTN, HLP, hypothyroidism, seen in the [facility] for: 1. RLS, essential tremor and neuropathy -- Polyneuropathy: There are length dependent feature. She has hypothyroidism and B12 deficiency which may be associated with neuropathy. No diabetes. I will check additional neuropathy labs. I discussed with her to try alpha lipoic acid and she agreed. --Restless leg syndrome: I will check her iron panel to see whether there are iron deficiency. Her neuropathy might have Exacerbated the restless leg syndrome. I discussed with her about increasing nighttime Neurontin. She will see whether she can tolerate it. Since it does not bother her during the day, she does not have to take the morning dose. -- Essential tremor: I discussed with her about the differences between essential tremor and Parkinson disease. We also discussed about the treatment. Her blood pressure is borderline. We may consider to try propanolol if it becomes a problem. --HTN --HLP --hypothyroidism --B12 deficiency PLAN --Try alpha lipoic acid 200mg twice a day for neuropathy --Try neurontin 600mg at bedtime for restless leg syndrome. --neuropathy labs --may try propranolol for both hypertension and essential tremor --Follow up in 3-4 months No diagnosis found. No follow-ups on file. = Data Review Objective Current Outpatient Medications Medication Sig simvastatin (ZOCOR) 40 mg tablet TAKE 1 TABLET BY MOUTH EVERYDAY AT BEDTIME albuterol HFA (PROAIR HFA) 90 mcg/actuation inhaler Inhale 2 Puffs as instructed every 4 hours as needed. Disp 1 inhaler with 11 refills ondansetron orally disintegrating (ZOFRAN ODT) 4 mg disintegrating tablet Take 1 tablet by mouth every 8 hours as needed for nausea/vomiting. sucralfate (CARAFATE) 1 gram tablet Take 1 tablet by mouth three times daily. metoprolol succinate ER (TOPROL XL) 25 mg 24 hr tablet Take 1 tablet by mouth once daily. gabapentin (NEURONTIN) 100 mg capsule Take 1 capsule by mouth twice daily for 30 days. levothyroxine (LEVOXYL) 88 mcg tablet Take 1 tablet by mouth once daily. Take on empty stomach. For Thyroid pantoprazole DR (PROTONIX) 40 mg tablet Take 1 tablet by mouth once daily. cholecalciferol, vitamin D3, (VITAMIN D3) 100 mcg (4,000 unit) cap Take 1 capsule by mouth once daily. acetaminophen (TYLENOL EXTRA STRENGTH) 500 mg tablet Take 500 mg by mouth every 8 hours as needed. loratadine (CLARITIN) 10 mg tablet Take 1 tablet by mouth once daily. fluticasone (FLONASE) 50 mcg/actuation nasal spray Use 2 Sprays in each nostril once daily. Rinse mouth after use. estradiol (ESTRACE) 0.01 % (0.1 mg/gram) vaginal cream Use small amount at vaginal opening 3 nights a week for 4 weeks No current facility-administered medications for this visit. ACTIVE PROBLEM LIST Hyperlipidemia Ldl Goal <100 Hypothyroidism Gerd (Gastroesophageal Reflux Disease) Restless Legs Syndrome Tremor, Essential Benign Neoplasm of Colon Diverticulosis of Large Intestine Vitamin D Deficiency Trochanteric Bursitis of Right Hip Postmenopausal Atrophic Vaginitis Essential Hypertension, Benign Osteopenia Seasonal Allergies Thrombocytopenia (Hcc) Left Kidney Mass Right Lower Quadrant Abdominal Pain Liver Mass, Left Lobe Incisional Hernia, Without Obstruction Or Gangrene Pac (Premature Atrial Contraction) Lumbar Radiculopathy Ddd (Degenerative Disc Disease), Lumbar Acute Pain of Right Knee Chronic Constipation Chronic Nausea Numbness and Tingling of Both Lower Extremities PAST MEDICAL HISTORY Diagnosis Date Benign neoplasm of colon Chronic constipation 04/11/2021 Chronic nausea 04/11/2021 Cyst of kidney, acquired Cyst of left kidney Diverticulosis of colon with hemorrhage sigmoid Esophagitis Essential hypertension, benign 11/08/2014 GERD (gastroesophageal reflux disease) 05/26/2009 Hypothyroidism IBS (irritable bowel syndrome) Seasonal allergies allergy injections Sebaceous cyst of left axilla 06/06/2018 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 Trochanteric bursitis of right hip 12/12/2012 PAST SURGICAL HISTORY Procedure Laterality Date APPENDECTOMY CATARACT SURGERY, COMPLEX 07/26/16 CHOLECYSTECTOMY 04/2003 CHOLECYSTECTOMY COLONOSCOPY FLX DX W/COLLJ SPEC WHEN PFRMD 11/10/2001 Colonoscopy COLONOSCOPY FLX DX W/COLLJ SPEC WHEN PFRMD 03/24/2008 Colonoscopy COLONOSCOPY FLX DX W/COLLJ SPEC WHEN PFRMD 02/08/16 Colonoscopy (MAC) COLONOSCOPY FLX DX W/COLLJ SPEC WHEN PFRMD 05/30/2020 Colonoscopy COLONOSCOPY W/BIOPSY SINGLE/MULTIPLE 04/18/12 DILATION & CURETTAGE DX&/THER NONOBSTETRIC ESOPHAGOGASTRODUODENOSCOPY TRANSORAL DIAGNOSTIC 07/22/2002 EGD ESOPHAGOGASTRODUODENOSCOPY TRANSORAL DIAGNOSTIC 05/22/2019 EGD ESOPHAGOGASTRODUODENOSCOPY TRANSORAL DIAGNOSTIC 05/30/2020 EGD HERNIA REPAIR HX 12/2018 w/ lysis of adhesions LAP COLECTOMY, SIGMOID W/HEARING SPECIALIST 11/11/2017 [facility]-Dr. Hayden Wolff PAST SURGICAL HISTORY OF LAPAROSCOPY FOR INFERTILITY PAST SURGICAL HISTORY OF 02/2011 right index finger ganglion cyst removal REPAIR FIRST ABDOMINAL WALL HERNIA 01/14/2019 Hernia repair, incisional, laparoscopic incarcerated incisional hernia rapair x 2 TOT ABD HYST W/WO RMVL TUBE OVARY W/COLPURETHRXY 1998 BIRCH TOTAL ABDOMINAL HYSTERECT W/WO RMVL TUBE OVARY 1998 Social History Tobacco Use Smoking status: Never Smokeless tobacco: Never Vaping Use Vaping Use: Never used Substance Use Topics Alcohol use: Yes Comment: rarely Drug use: No FAMILY HISTORY Problem Relation Age of Onset Heart Mother Hypertension Mother Stroke Mother other (low iron) Mother Heart Father 3 stents None Brother Coronary Artery Disease Brother No Known Problems Son No Known Problems Son Review of Systems Lab and Test Review: Results for orders placed or performed in visit on 02/03/22 VITAMIN D 25 HYDROXY Result Value Ref Range Vitamin D 25 Hydroxy 37.0 31.0 - 80.0 ng/mL LIPID PANEL, NONFASTING Result Value Ref Range Total Cholesterol, Nonfasting 234 (H) <200 mg/dL Triglycerides, Nonfasting 129 <150 mg/dL HDL Cholesterol, Nonfasting 41 >39 mg/dL LDL Cholesterol, Nonfasting 167 (H) <100 mg/dL Non HDL Cholesterol, Nonfasting 193 (H) <130 mg/dL VLDL Cholesterol, Nonfasting 26 <30 mg/dL Total Chol/HDL Ratio, Nonfasting 5.71 (H) <5.10 mg/dL LDL/HDL Ratio, Nonfasting 4.07 (H) <2.54 mg/dL *Note: Due to a large number of results and/or encounters for the requested time period, some results have not been displayed. A complete set of results can be found in Results Review. Outside Data/Labs: Subjective Patient-Entered Data: 12/24/22 - GENERAL NEUROLOGY SCORES No flowsheet data found. Depression Screening 08/16/2016 10/02/2017 12/15/2018 PHQ-2 Score 0 0 0 No flowsheet data found. No flowsheet data found. No flowsheet data found. I spent a total of 60 minutes on the date of the service which included preparing to see the patient, [id number] patient care, completing clinical documentation, obtaining and/or reviewing separately obtained history, performing a medically appropriate examination, counseling and educating the patient/family/caregiver, ordering medications, tests, or procedures, independently interpreting results (not separately reported), communicating results to the patient/family/caregiver, and care coordination (not separately reported). Heather Sneed MD documented in this encounter [facility] 11-06-2022 Note Patient Outreach (LOCO RUCKER) HALLIE TALAVERA ([id number]) 1950 F Date Time Provider Department 11/06/22 YOMAIRA NG During your visit today, we recorded the following information about you: Yomaira Ng MA 11/06/2022 2:25 PM Signed POPULATION HEALTH NAVIGATION OUTREACH Action/FYI LVM Reflex SystemsT MESSAGE SENT ANNUAL MEDICARE WELLNESS EXAM INFLUENZA(1) due on 05/31/2022 ANNUAL PCP TEAM CHRONIC DISEASE VISIT due on 08/14/2022 Patient Identified by Name and : NO Outreach Outcome/Action Unable to reach patient: Left message Slackhart message sent Did you use a PCP flex slot to schedule this appointment? N/A Reason for Outreach Care Gap or Scheduling/Wellness visits Payer: Payor: MEDICARE / Plan: MEDICARE A AND B / Product Type: Medicare / Care Gap Reviewed:: Annual Wellness visit Flu Vaccine Reminder: Reminder note to check Health Maintenance for items below Health Maintenance items due: DTAP,TDAP,TD(1 - Tdap) due on 06/26/2006 SHINGRIX VACCINE(2 of 3) due on 08/21/2013 COVID-19 VACCINE(3 - Booster for Moderna series) due on 02/16/2021 INFLUENZA(1) due on 05/31/2022 ANNUAL PCP TEAM CHRONIC DISEASE VISIT due on 08/14/2022 ADVANCE DIRECTIVE DISCUSSION due on 09/30/2022 DEPRESSION ASSESSMENT Never done Navigation Signature: Yomaira Ng MA November 06, 2022 10:38 AM Allergies As of Date: 11/06/2022 Noted Allergy Reaction LIPITOR (ATORVASTATIN CALCIUM) 12/17/2006 Comments: myalgia SULFAMETHOXAZOLE 11/01/2020 14 - Other: See Comments Comments: Very Shaky Date Reviewed: 04/19/2022 Reviewed by: Marita Wong LPN - Fully Assessed Reason for Visit: Population Health Navigation Outreach [3910] Cmt: ACO GAEL PCSA Prescriptions as of 11/06/2022 - simvastatin (ZOCOR) 40 mg tablet TAKE 1 TABLET BY MOUTH EVERYDAY AT BEDTIME - albuterol HFA (PROAIR HFA) 90 mcg/actuation inhaler Inhale 2 Puffs as instructed every 4 hours as needed. Disp 1 inhaler with 11 refills - ondansetron orally disintegrating (ZOFRAN ODT) 4 mg disintegrating tablet Take 1 tablet by mouth every 8 hours as needed for nausea/vomiting. - sucralfate (CARAFATE) 1 gram tablet Take 1 tablet by mouth three times daily. - metoprolol succinate ER (TOPROL XL) 25 mg 24 hr tablet Take 1 tablet by mouth once daily. - gabapentin (NEURONTIN) 100 mg capsule Take 1 capsule by mouth twice daily for 30 days. - levothyroxine (LEVOXYL) 88 mcg tablet Take 1 tablet by mouth once daily. Take on empty stomach. For Thyroid - pantoprazole DR (PROTONIX) 40 mg tablet Take 1 tablet by mouth once daily. - cholecalciferol, vitamin D3, (VITAMIN D3) 100 mcg (4,000 unit) cap Take 1 capsule by mouth once daily. - acetaminophen (TYLENOL EXTRA STRENGTH) 500 mg tablet Take 500 mg by mouth every 8 hours as needed. - loratadine (CLARITIN) 10 mg tablet Take 1 tablet by mouth once daily. - fluticasone (FLONASE) 50 mcg/actuation nasal spray Use 2 Sprays in each nostril once daily. Rinse mouth after use. - estradiol (ESTRACE) 0.01 % (0.1 mg/gram) vaginal cream Use small amount at vaginal opening 3 nights a week for 4 weeks Problem List As Of Date 11/06/2022 Noted Resolved Hyperlipidemia LDL goal <100 [E78.5] 06/25/2006 Hypothyroidism [E03.9] 12/17/2006 GERD (Gastroesophageal Reflux Disease) [K21.9] 05/26/2009 Restless Legs Syndrome [G25.81] 05/26/2009 Tremor, Essential [G25.0] 05/26/2009 Benign neoplasm of colon [D12.6] 04/18/2012 Diverticulosis of large intestine [K57.30] 04/18/2012 Vitamin d deficiency [E55.9] 07/10/2012 Trochanteric bursitis of right hip [M70.61] 12/12/2012 Postmenopausal atrophic vaginitis [N95.2] 06/14/2014 Essential hypertension, benign [I10] 11/08/2014 Osteopenia [M85.80] 03/07/2015 Abnormal finding on chest xray [R93.89] 2015 02/14/2017 Seasonal allergies [J30.2] 01/30/2016 Thrombocytopenia (HCC) [D69.6] 01/30/2016 Dysuria [R30.0] 03/27/2016 02/14/2017 Left kidney mass [N28.89] 02/14/2017 Right lower quadrant abdominal pain [R10.31] 02/18/2018 Chronic post-operative pain [G89.28] 02/18/2018 07/23/2018 Liver mass, left lobe [R16.0] 02/18/2018 Incisional hernia, without obstruction or gangr*07/23/2018 PAC (premature atrial contraction) [I49.1] 12/15/2018 Lumbar radiculopathy [M54.16] 02/29/2020 DDD (degenerative disc disease), lumbar [M51.36]02/29/2020 Acute pain of right knee [M25.561] 02/28/2021 Chronic constipation [K59.09] 04/11/2021 Chronic nausea [R11.0] 04/11/2021 Numbness and tingling of both lower extremities*04/11/2021 Encounter Status:Closed by YOMAIRA NG on 11/06/22 [facility] 11-06-2022 Note HNO ID: [id number] Author: Yomaira Ng MA Service: ? Author Type: Flight Engineer Instructor Type: Progress Notes Filed: 11/06/2022 2:25 PM Note Text: POPULATION HEALTH NAVIGATION OUTREACH Action/ [facility] [place] [employer] MESSAGE SENT ANNUAL MEDICARE WELLNESS EXAM INFLUENZA(1) due on 05/31/2022 ANNUAL PCP TEAM CHRONIC DISEASE VISIT due on 08/14/2022 Patient Identified by Name and : NO Outreach Outcome/Action Unable to reach patient: Left message Slackhart message sent Did you use a PCP flex slot to schedule this appointment? N/A Reason for Outreach Care Gap or Scheduling/Wellness visits Payer: Payor: MEDICARE / Plan: MEDICARE A AND B / Product Type: Medicare / Care Gap Reviewed:: Annual Wellness visit Flu Vaccine Reminder: Reminder note to check Health Maintenance for items below Health Maintenance items due: DTAP,TDAP,TD(1 - Tdap) due on 06/26/2006 SHINGRIX VACCINE(2 of 3) due on 08/21/2013 COVID-19 VACCINE(3 - Booster for Moderna series) due on 02/16/2021 INFLUENZA(1) due on 05/31/2022 ANNUAL PCP TEAM CHRONIC DISEASE VISIT due on 08/14/2022 ADVANCE DIRECTIVE DISCUSSION due on 09/30/2022 DEPRESSION ASSESSMENT Never done Navigation Signature: Yomaira Ng MA November 06, 2022 10:38 AM [facility] 11-06-2022 History of Presen t illness Narrative POPULATION HEALTH NAVIGATION OUTREACH Action/FYI LVM [employer] MESSAGE SENT ANNUAL MEDICARE WELLNESS EXAM INFLUENZA(1) due on 05/31/2022 ANNUAL PCP TEAM CHRONIC DISEASE VISIT due on 08/14/2022 Patient Identified by Name and : NO Outreach Outcome/Action Unable to reach patient: Left message HYGIEIAt message sent Did you use a PCP flex slot to schedule this appointment? N/A Reason for Outreach Care Gap or Scheduling/Wellness visits Payer: Payor: MEDICARE / Plan: MEDICARE A AND B / Product Type: Medicare / Care Gap Reviewed:: Annual Wellness visit Flu Vaccine Reminder: Reminder note to check Health Maintenance for items below Health Maintenance items due: DTAP,TDAP,TD(1 - Tdap) due on 06/26/2006 SHINGRIX VACCINE(2 of 3) due on 08/21/2013 COVID-19 VACCINE(3 - Booster for Moderna series) due on 02/16/2021 INFLUENZA(1) due on 05/31/2022 ANNUAL PCP TEAM CHRONIC DISEASE VISIT due on 08/14/2022 ADVANCE DIRECTIVE DISCUSSION due on 09/30/2022 DEPRESSION ASSESSMENT Never done Navigation Signature: Yomaira Ng MA November 06, 2022 10:38 AM documented in this encounter [facility] 07-17-2022 Miscellaneous Notes Last OV: 04/19/2022 Next OV: 07/30/2022 documented in this encounter [facility] 04-19-2022 Miscellaneous Notes Pt called I and asked to have gastro referral faxed over to Dr Lanier. Referral was faxed to [phone]. documented in this encounter [facility] 04-19-2022 History of Presen t illness Narrative SUBJECTIVE: BP CONTROLLED (<130/80) Never done COVID-19 VACCINE(3 - Booster for Moderna series) due on 05/24/2021 HPI Hallie Talavera is a 71 year old female. Presents for routine follow up visit. PMH significant for ACTIVE PROBLEM LIST Hyperlipidemia Ldl Goal <100 Hypothyroidism Gerd (Gastroesophageal Reflux Disease) Restless Legs Syndrome Tremor, Essential Benign Neoplasm of Colon Diverticulosis of Large Intestine Vitamin D Deficiency Trochanteric Bursitis of Right Hip Postmenopausal Atrophic Vaginitis Essential Hypertension, Benign Osteopenia Seasonal Allergies Thrombocytopenia (Hcc) Left Kidney Mass Right Lower Quadrant Abdominal Pain Liver Mass, Left Lobe Incisional Hernia, Without Obstruction Or Gangrene Pac (Premature Atrial Contraction) Lumbar Radiculopathy Ddd (Degenerative Disc Disease), Lumbar Acute Pain of Right Knee Chronic Constipation Chronic Nausea Numbness and Tingling of Both Lower Extremities HPI excerpted from previous visit: She notes since last here that she has a torn meniscus in her left knee, has an upcoming appointment [facility]. She notes both brothers now with CAD. Concerned about her risk. GERD symptoms: without current complaints She notes decreased dose of vitamin D recently due to elevated calcium. Gabapentin does seem to help with abnormal sensations in hands and feet. Without facial complaints currently. Hypothyroidism. She is doing well on her current dose of Synthroid. TSH (uU/mL) Date Value 06/06/2021 2.210 04/17/2021 0.985 ) HTN: Doing well, no symptomatic complaints. Last 3 Encounter BP Readings: Date: BP: 08/14/2021 130/74 07/26/2021 118/76 07/11/2021 136/82 Hyperlipidemia. Ms. Talavera doing well on current therapy Her most recent lipid panels are: Cholesterol, Total (mg/dL) Date Value 10/28/2020 217 05/09/2020 172 Total Cholesterol, Nonfasting (mg/dL) Date Value 02/03/2022 234 HDL Cholesterol (mg/dL) Date Value 10/28/2020 37 05/09/2020 34 HDL Cholesterol, Nonfasting (mg/dL) Date Value 02/03/2022 41 LDL Cholesterol (mg/dL) Date Value 10/28/2020 156 05/09/2020 114 LDL Cholesterol, Nonfasting (mg/dL) Date Value 02/03/2022 167 Triglyceride (mg/dL) Date Value 10/28/2020 120 05/09/2020 119 Triglycerides, Nonfasting (mg/dL) Date Value 02/03/2022 129 The 10-year ASCVD risk score (Floresita SALCIDO Jr., et al., 2013) is: 11.9% Values used to calculate the score: Age: 71 years Sex: Female Is Non- : No Diabetic: No Tobacco smoker: No Systolic Blood Pressure: 118 mmHg Is BP treated: Yes HDL Cholesterol: 41 mg/dL Total Cholesterol: 234 mg/dL Thrombocytopenia: stable; no complaints. Presents today regarding mild intermittent upper abdominal pain described as aching and constant nausea x 2 weeks. More nasuea with meals, thinks increased NSAID use is cause. See telephone encounter yesterday. Outside record review indicates she underwent left knee arthroscopic partial lateral meniscectomy and partial medial meniscectomy on February 28, 2022 with [facility]. Notes that she was taking 600 mg ibuprofen 4 times daily following the surgery. Note she was taking pain medication for a period of time as well. Now no longer taking NSAIDs. Notes that symptoms seem to start following surgery, attributing to NSAID use. She notes currently taking PPI, sucralfate, Librax with some relief. Heartburn: Yes Reflux: Yes Abdominal pain: Yes, epigastric and crampy lower abdominal Nausea: Yes Vomiting: No Diarrhea: No Constipation: Chronic using MiraLAX as needed BRBPR: No Black tarry: No Review of Systems Constitutional: Negative. Objective BP 118/80 Pulse 69 Resp 16 Wt 70.3 kg (155 lb) SpO2 98% BMI 26.61 kg/m Physical Exam Vitals and nursing note reviewed. Constitutional: Appearance: Normal appearance. HENT: Head: Normocephalic and atraumatic. Eyes: Conjunctiva/sclera: Conjunctivae normal. Cardiovascular: Rate and Rhythm: Normal rate and regular rhythm. Pulmonary: Effort: Pulmonary effort is normal. Breath sounds: Normal breath sounds. Abdominal: General: Bowel sounds are normal. There is no distension. Palpations: Abdomen is soft. There is no mass. Tenderness: There is no abdominal tenderness. There is no guarding or rebound. Musculoskeletal: Right lower leg: No edema. Left lower leg: No edema. Skin: General: Skin is warm and dry. Neurological: General: No focal deficit present. Mental Status: She is alert and oriented to person, place, and time. ALLERGIES Allergen Reactions Lipitor [Atorvastat* myalgia Sulfamethoxazole Other: See Comments Very Shaky MEDICATIONS ondansetron orally disintegrating (ZOFRAN ODT) 4 mg disintegrating tablet Take 1 tablet by mouth every 8 hours as needed for nausea/vomiting. sucralfate (CARAFATE) 1 gram tablet Take 1 tablet by mouth three times daily. metoprolol succinate ER (TOPROL XL) 25 mg 24 hr tablet Take 1 tablet by mouth once daily. gabapentin (NEURONTIN) 100 mg capsule Take 1 capsule by mouth twice daily for 30 days. albuterol HFA (PROAIR HFA) 90 mcg/actuation inhaler Inhale 2 Puffs as instructed every 4 hours as needed. Disp 1 inhaler with 11 refills levothyroxine (LEVOXYL) 88 mcg tablet Take 1 tablet by mouth once daily. Take on empty stomach. For Thyroid pantoprazole DR (PROTONIX) 40 mg tablet Take 1 tablet by mouth once daily. simvastatin (ZOCOR) 40 mg tablet Take 1 tablet by mouth daily at bedtime. cholecalciferol, vitamin D3, (VITAMIN D3) 100 mcg (4,000 unit) cap Take 1 capsule by mouth once daily. acetaminophen (TYLENOL EXTRA STRENGTH) 500 mg tablet Take 500 mg by mouth every 8 hours as needed. loratadine (CLARITIN) 10 mg tablet Take 1 tablet by mouth once daily. fluticasone (FLONASE) 50 mcg/actuation nasal spray Use 2 Sprays in each nostril once daily. Rinse mouth after use. 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 Trochanteric bursitis of right hip 12/12/2012 Social History Tobacco Use Smoking status: Never Smoker Smokeless tobacco: Never Used Vaping Use Vaping Use: Never used Substance Use Topics Alcohol use: Yes Comment: rarely Drug use: No Component Latest Ref Rng & Units 04/17/2021 06/06/2021 07/24/2021 08/14/2021 12/22/2021 WBC 3.70 - 11.00 k/uL 4.47 5.47 RBC 3.90 - 5.20 m/uL 5.11 5.16 Hemoglobin 11.5 - 15.5 g/dL 15.6 (H) 15.9 (H) Hematocrit 36.0 - 46.0 % 46.8 (H) 50.9 (H) MCV 80.0 - 100.0 fL 91.6 98.6 MCH 26.0 - 34.0 pG 30.5 30.8 MCHC 30.5 - 36.0 g/dL 33.3 31.2 RDW-CV 11.5 - 15.0 % 13.2 13.4 Platelet Count 150 - 400 k/uL 101 (L) 122 (L) MPV 9.0 - 12.7 fL 12.1 11.8 Neut% % 63.3 62.6 Abs Neut (ANC) 1.45 - 7.50 k/uL 2.82 3.41 Lymph% % 21.7 21.2 Abs Lymph 1.00 - 4.00 k/uL 0.97 (L) 1.16 Dodge% % 9.8 10.6 Abs Dodge <0.87 k/uL 0.44 0.58 Eosin% % 4.5 5.1 Abs Eosin <0.46 k/uL 0.20 0.28 Baso% % 0.7 0.5 Abs Baso <0.11 k/uL 0.03 0.03 Nucleated Reds 0 /100 WBC 0.0 0.0 Absolute nRBC <0.01 k/uL <0.01 <0.01 Diff Type Auto Diff Auto Diff Protein, Total 6.3 - 8.0 g/dL 6.7 6.5 Albumin 3.9 - 4.9 g/dL 4.5 4.1 Calcium 8.5 - 10.2 mg/dL 10.6 (H) 9.9 Bilirubin, Total 0.2 - 1.3 mg/dL 0.3 0.3 Alkaline Phosphatase 34 - 123 U/L 105 98 AST 13 - 35 U/L 15 14 Glucose 74 - 99 mg/dL 97 69 (L) BUN 7 - 21 mg/dL 19 21 Creatinine 0.58 - 0.96 mg/dL 0.84 1.00 (H) Sodium 136 - 144 mmol/L 142 142 Potassium 3.7 - 5.1 mmol/L 4.1 3.7 Chloride 97 - 105 mmol/L 104 106 (H) CO2 22 - 30 mmol/L 24 27 Anion Gap 9 - 18 mmol/L 14 9 ALT 7 - 38 U/L 19 18 eGFR- >60 eGFR-All Other Races . >60 eGFR >=60 mL/min/1.73m 61 Folate >4.7 ng/mL 15.2 Vitamin B12 232 - 1,245 pg/mL 302 333 Magnesium 1.7 - 2.3 mg/dL 2.0 TSH 0.270 - 4.200 uU/mL 0.985 2.210 WSR 0 - 20 mm/hr 2 2 Free T4 0.9 - 1.7 ng/dL 1.6 Vitamin B6, Plasma 20.0 - 125.0 nmol/L 27.4 CRP <0.9 mg/dL 0.7 ASSESSMENT/PLAN: 1. Epigastric pain - ICD9: 789.06, ICD10: R10.13 (primary diagnosis) - CONSULT TO GASTROENTEROLOGY 2. Nausea - ICD9: 787.02, ICD10: R11.0 - ONDANSETRON 4 MG DISINTEGRATING TABLET - SUCRALFATE 1 GRAM TABLET - CONSULT TO GASTROENTEROLOGY 3. Chronic nausea - ICD9: 787.02, ICD10: R11.0 - ONDANSETRON 4 MG DISINTEGRATING TABLET - CONSULT TO GASTROENTEROLOGY 4. Chronic constipation - ICD9: 564.00, ICD10: K59.09 - CONSULT TO GASTROENTEROLOGY 5. Gastroesophageal reflux disease without esophagitis - ICD9: 530.81, ICD10: K21.9 - CONSULT TO GASTROENTEROLOGY She notes increased GERD and nausea after NSAID use following surgery. Endorse no longer using this, use acetaminophen as needed. Continue with PPI, Carafate 4 times daily. Librax as needed for crampy abdominal pain. Zofran as needed for nausea. She is interested in following up with gastroenterology, consult placed. Parul Cummings APRN.RESHMA Medical Decision Making: Problems: Moderate: 1+ chronic illnesses with change Risk: Moderate: Drug management Medical Decision Making Level: 4 - Moderate documented in this encounter [facility] 02-16-2022 Miscellaneous Notes Patient phones requesting refills as follows: Pending Prescriptions Disp Refills METOPROLOL SUCCINATE ER 25 MG TABLET,EXTENDED RELEASE 24 HR 30 tablet 5 Sig: Take 1 tablet by mouth once daily. NICA: No JUD-01/30/22 Labs-02/03/22 NOV-07/30/22 med filled 01/26/21 Please review and advise. Palmira Sheppard LPN documented in this encounter [facility] 02-09-2022 Miscellaneous Notes Reason for call: patient had blood and mucous on the toilet paper when wiping after having a bowel movement two different times. Patient is also having some rectal discomfort Outcome for call: see PCP within 2 weeks, transferred to [place] at the appointment center to make an appointment Reason for Disposition [1] Rectal bleeding is minimal (e.g., blood just on toilet paper, few drops, streaks on surface of normal formed BM) AND [2] bleeding recurs 3 or more times on treatment Answer Assessment - Initial Assessment Questions 1. APPEARANCE of BLOOD: just on the tissue paper, brownish-red 2. AMOUNT: small amount 3. FREQUENCY: 2 times 4. ONSET: 2 hours ago 5. DIARRHEA: denies 6. CONSTIPATION: patient had a bowel movement a few hours ago 7. RECURRENT SYMPTOMS: denies 8. BLOOD THINNERS: denies 9. OTHER SYMPTOMS:rectal pain, passed blood and mucous Protocols used: RECTAL [id number] documented in this encounter [facility] 02-05-2022 Miscellaneous Notes Patient notified of providers message and verbalized understanding. Patient has not been taking her simvastatin regularly so will do this and recheck labs in 6 months. Vitamin D is within normal limits. Cholesterol is elevated. If she is consistently taking simvastatin then would recommend considering an alternate medication to reduce her 10-year risk of heart attack or stroke as she is not on goal with her current treatment. If she is not consistently taking simvastatin would recommend resuming daily and recheck in 6 months. Component Latest Ref Rng & Units 02/03/2022 Total Cholesterol, Nonfasting <200 mg/dL 234 (H) Triglycerides, Nonfasting <150 mg/dL 129 HDL Cholesterol, Nonfasting >39 mg/dL 41 LDL Cholesterol, Nonfasting <100 mg/dL 167 (H) Non HDL Cholesterol, Nonfasting <130 mg/dL 193 (H) VLDL Cholesterol, Nonfasting <30 mg/dL 26 Total Chol/HDL Ratio, Nonfasting <5.10 mg/dL 5.71 (H) LDL/HDL Ratio, Nonfasting <2.54 mg/dL 4.07 (H) Vitamin D 25 Hydroxy 31.0 - 80.0 ng/mL 37.0 The 10-year ASCVD risk score (Penfield OMARI Jr., et al., 2013) is: 14.3% Values used to calculate the score: Age: 71 years Sex: Female Is Non- : No Diabetic: No Tobacco smoker: No Systolic Blood Pressure: 130 mmHg Is BP treated: Yes HDL Cholesterol: 41 mg/dL Total Cholesterol: 234 mg/dL documented in this encounter [facility] 01-30-2022 History of Presen t illness Narrative SUBJECTIVE: BP CONTROLLED (<130/80) Never done MAMMOGRAM due on 02/01/2021 COVID-19 VACCINE(3 - Booster for Moderna series) due on 05/24/2021 ADVANCE DIRECTIVE DISCUSSION Never done HPI Hallie Talavera is a 71 year old female. Presents for routine follow up visit. PMH significant for ACTIVE PROBLEM LIST Hyperlipidemia Ldl Goal <100 Hypothyroidism Gerd (Gastroesophageal Reflux Disease) Restless Legs Syndrome Tremor, Essential Benign Neoplasm of Colon Diverticulosis of Large Intestine Vitamin D Deficiency Trochanteric Bursitis of Right Hip Postmenopausal Atrophic Vaginitis Essential Hypertension, Benign Osteopenia Seasonal Allergies Thrombocytopenia (Hcc) Left Kidney Mass Right Lower Quadrant Abdominal Pain Liver Mass, Left Lobe Incisional Hernia, Without Obstruction Or Gangrene Pac (Premature Atrial Contraction) Lumbar Radiculopathy Ddd (Degenerative Disc Disease), Lumbar Acute Pain of Right Knee Chronic Constipation Chronic Nausea Numbness and Tingling of Both Lower Extremities She notes since last here that she has a torn meniscus in her left knee, has an upcoming appointment [facility]. She notes both brothers now with CAD. Concerned about her risk. GERD symptoms: without current complaints She notes decreased dose of vitamin D recently due to elevated calcium. Gabapentin does seem to help with abnormal sensations in hands and feet. Without facial complaints currently. Hypothyroidism. She is doing well on her current dose of Synthroid. TSH (uU/mL) Date Value 06/06/2021 2.210 04/17/2021 0.985 ) HTN: Doing well, no symptomatic complaints. Last 3 Encounter BP Readings: Date: BP: 08/14/2021 130/74 07/26/2021 118/76 07/11/2021 136/82 Hyperlipidemia. Ms. Talavera doing well on current therapy Her most recent lipid panels are: Cholesterol, Total (mg/dL) Date Value 10/28/2020 217 05/09/2020 172 HDL Cholesterol (mg/dL) Date Value 10/28/2020 37 05/09/2020 34 LDL Cholesterol (mg/dL) Date Value 10/28/2020 156 05/09/2020 114 Triglyceride (mg/dL) Date Value 10/28/2020 120 05/09/2020 119 The 10-year ASCVD risk score (Floresita SALCIDO Jr., et al., 2013) is: 14.3% Values used to calculate the score: Age: 71 years Sex: Female Is Non- : No Diabetic: No Tobacco smoker: No Systolic Blood Pressure: 130 mmHg Is BP treated: Yes HDL Cholesterol: 37 mg/dL Total Cholesterol: 217 mg/dL Thrombocytopenia: stable; no complaints. Review of Systems Constitutional: Negative. Objective BP 130/78 Pulse 84 Resp 16 Wt 72.6 kg (160 lb) BMI 27.46 kg/m Physical Exam Vitals and nursing note reviewed. Constitutional: Appearance: Normal appearance. HENT: Head: Normocephalic and atraumatic. Eyes: Conjunctiva/sclera: Conjunctivae normal. Cardiovascular: Rate and Rhythm: Normal rate. Pulmonary: Effort: Pulmonary effort is normal. Neurological: General: No focal deficit present. Mental Status: She is alert. ALLERGIES Allergen Reactions Lipitor [Atorvastat* myalgia Sulfamethoxazole Other: See Comments Very Shaky MEDICATIONS gabapentin (NEURONTIN) 100 mg capsule Take 1 capsule by mouth twice daily for 30 days. albuterol HFA (PROAIR HFA) 90 mcg/actuation inhaler Inhale 2 Puffs as instructed every 4 hours as needed. Disp 1 inhaler with 11 refills sucralfate (CARAFATE) 1 gram tablet Take 1 tablet by mouth three times daily. levothyroxine (LEVOXYL) 88 mcg tablet Take 1 tablet by mouth once daily. Take on empty stomach. For Thyroid pantoprazole DR (PROTONIX) 40 mg tablet Take 1 tablet by mouth once daily. simvastatin (ZOCOR) 40 mg tablet Take 1 tablet by mouth daily at bedtime. cholecalciferol, vitamin D3, (VITAMIN D3) 100 mcg (4,000 unit) cap Take 1 capsule by mouth once daily. ondansetron orally disintegrating (ZOFRAN ODT) 4 mg disintegrating tablet Take 1 tablet by mouth every 8 hours as needed for nausea/vomiting. acetaminophen (TYLENOL EXTRA STRENGTH) 500 mg tablet Take 500 mg by mouth every 8 hours as needed. metoprolol succinate ER (TOPROL XL) 25 mg 24 hr tablet Take 1 tablet by mouth once daily. loratadine (CLARITIN) 10 mg tablet Take 1 tablet by mouth once daily. fluticasone (FLONASE) 50 mcg/actuation nasal spray Use 2 Sprays in each nostril once daily. Rinse mouth after use. 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 Trochanteric bursitis of right hip 12/12/2012 Social History Tobacco Use Smoking status: Never Smoker Smokeless tobacco: Never Used Vaping Use Vaping Use: Never used Substance Use Topics Alcohol use: Yes Comment: rarely Drug use: No Component Latest Ref Rng & Units 04/17/2021 06/06/2021 07/24/2021 08/14/2021 12/22/2021 WBC 3.70 - 11.00 k/uL 4.47 5.47 RBC 3.90 - 5.20 m/uL 5.11 5.16 Hemoglobin 11.5 - 15.5 g/dL 15.6 (H) 15.9 (H) Hematocrit 36.0 - 46.0 % 46.8 (H) 50.9 (H) MCV 80.0 - 100.0 fL 91.6 98.6 MCH 26.0 - 34.0 pG 30.5 30.8 MCHC 30.5 - 36.0 g/dL 33.3 31.2 RDW-CV 11.5 - 15.0 % 13.2 13.4 Platelet Count 150 - 400 k/uL 101 (L) 122 (L) MPV 9.0 - 12.7 fL 12.1 11.8 Neut% % 63.3 62.6 Abs Neut (ANC) 1.45 - 7.50 k/uL 2.82 3.41 Lymph% % 21.7 21.2 Abs Lymph 1.00 - 4.00 k/uL 0.97 (L) 1.16 Dodge% % 9.8 10.6 Abs Dodge <0.87 k/uL 0.44 0.58 Eosin% % 4.5 5.1 Abs Eosin <0.46 k/uL 0.20 0.28 Baso% % 0.7 0.5 Abs Baso <0.11 k/uL 0.03 0.03 Nucleated Reds 0 /100 WBC 0.0 0.0 Absolute nRBC <0.01 k/uL <0.01 <0.01 Diff Type Auto Diff Auto Diff Protein, Total 6.3 - 8.0 g/dL 6.7 6.5 Albumin 3.9 - 4.9 g/dL 4.5 4.1 Calcium 8.5 - 10.2 mg/dL 10.6 (H) 9.9 Bilirubin, Total 0.2 - 1.3 mg/dL 0.3 0.3 Alkaline Phosphatase 34 - 123 U/L 105 98 AST 13 - 35 U/L 15 14 Glucose 74 - 99 mg/dL 97 69 (L) BUN 7 - 21 mg/dL 19 21 Creatinine 0.58 - 0.96 mg/dL 0.84 1.00 (H) Sodium 136 - 144 mmol/L 142 142 Potassium 3.7 - 5.1 mmol/L 4.1 3.7 Chloride 97 - 105 mmol/L 104 106 (H) CO2 22 - 30 mmol/L 24 27 Anion Gap 9 - 18 mmol/L 14 9 ALT 7 - 38 U/L 19 18 eGFR- >60 eGFR-All Other Races . >60 eGFR >=60 mL/min/1.73m 61 Folate >4.7 ng/mL 15.2 Vitamin B12 232 - 1,245 pg/mL 302 333 Magnesium 1.7 - 2.3 mg/dL 2.0 TSH 0.270 - 4.200 uU/mL 0.985 2.210 WSR 0 - 20 mm/hr 2 2 Free T4 0.9 - 1.7 ng/dL 1.6 Vitamin B6, Plasma 20.0 - 125.0 nmol/L 27.4 CRP <0.9 mg/dL 0.7 ASSESSMENT/PLAN: ASSESSMENT/PLAN: 1. Hypothyroidism, unspecified type - ICD9: 244.9, ICD10: E03.9 (primary diagnosis) Currently controlled, continue current treatment unchanged for now - COMP METABOLIC PANEL - TSH BLD 2. Vitamin D deficiency - ICD9: 268.9, ICD10: E55.9 Hypercalcemia noted, dose of vitamin D decreased. Calcium has now normalized. - VITAMIN D 25 HYDROXY 3. Gastroesophageal reflux disease without esophagitis - ICD9: 530.81, ICD10: K21.9 Currently controlled, continue current treatment unchanged for now - COMP METABOLIC PANEL - CBC + DIFF 4. Numbness and tingling of both lower extremities - ICD9: 782.0, ICD10: R20.0, R20.2 5. Extremity numbness - ICD9: 782.0, ICD10: R20.0 Improved with gabapentin treatment, continue unchanged, continue to monitor - GABAPENTIN 100 MG CAPSULE PDMP website checked and validated. All prescriptions have been APPROPRIATELY filled. No suspicious activity was identified. 01/30/2022 by Parul Cummings APRN.ANTIQUE REFINISHER 6. Hyperlipidemia LDL goal <100 - ICD9: 272.4, ICD10: E78.5 When last checked suboptimal control, recheck today. Currently taking Zocor, prior intolerance of atorvastatin with muscle aches. - LIPID PANEL, NONFASTING 7. Acute pain of left knee M 25. 562 Consistent with meniscus tear, has upcoming appointment with [facility] Parul Cummings APRN.CNS Medical Decision Making: Problems: Moderate: 2+ stable chronic illnesses Data: Unique test(s) ordered: 3+ Risk: Moderate: Drug management Medical Decision Making Level: 4 - Moderate . documented in this encounter [facility] 01-18-2022 History of Presen t illness Narrative POPULATION HEALTH NAVIGATION OUTREACH Action/FYI DECLINED Pt identified by name and : YES, via phone Outreach Outcome/Action Spoke to patient or caregiver: Patient declined Reason for Outreach Care Gap or Scheduling/Wellness visits Payer: Payor: MEDICARE / Plan: MEDICARE A AND B / Product Type: Medicare / Care Gap Reviewed:: NOA Reminder: Reminder note to check Health Maintenance for items below Health Maintenance items due: MAMMOGRAM due on 02/01/2021 COVID-19 VACCINE(3 - Booster for Moderna series) due on 05/24/2021 ADVANCE DIRECTIVE DISCUSSION Never done Message Sent to Practice: No Navigation Signature: Leatha Saravia January 18, 2022 1:51 PM documented in this encounter [facility] 01-10-2022 Miscellaneous Notes Patient's picked up disk Pt would like to order picker/assembler report and disc from her knee xr today. Informed patient there is usually 24 hours notice. Please inform her if she is not able to get this today. Her appt with Ortho outside of Clinic at 8:15 tomorrow. Call her if this is no going to be done before 5. documented in this encounter [facility] 01-01-2022 Miscellaneous Notes Patient notified of providers message and verbalized understanding. 01/25 appt Metabolic panel in acceptable range overall. Recommend getting sufficient fluid during the day and eating on a regular basis. This will help keep BUN creatinine and chloride within normal limits. Routine meals will help keep glucose in normal range. No PMH of DM is noted in chart. No results found for: HBA1C Pt calling to check status on lab results. Please advise. Allyson Portillo LPN Patient calls and is asking if provider can look at labs that were done last Saturday. Patient noticed that her glucose level was 69. Patient did not fast for her labs. Please review and advise, Amanda Garcia RN documented in this encounter [facility] 06-21-2018 History of Presen t illness Narrative PCP: Dr. Doe: Dr. Daniel Talavera is a 67 y/o female with a history of worsening constipation and crampy lower abdominal pain over the past few years. Has a long history of tortuous sigmoid colon on colonoscopies and was told that she may eventually need surgery. No known history of diverticulitis. Current symptoms are severely impacting her quality of life.CT of abdomen on 09/25/17 showed diverticulosis of descending colon and sigmoid colon with mild wall thickening.Attempt at [facility] to investigate for sigmoid stricture, but bowel prep was not successful and study aborted.Last Colonoscopy in 2015, showed diverticulosis and sigmoid colon that was difficult to navigate. Patient reports that colonoscopy reproduced her lower abdominal pain.PSH includes cholecystectomy, hysterectomy, bladder suspension. [id number] Work Phone: documented as of this encounter (statuses as of 01/01/2022) [facility] History of Past illness Narrative* Problem Noted Date Resolved Date Chronic post-operative pain 02/18/201807/01 Dysuria 03/27/2016 02/14/2017 Abnormal finding on chest xray 2015 0 02/14/2017 documented as of this encounter (statuses as of 01/10/2022) [facility] History of Past illness Narrative* Problem Noted Date Resolved Date Chronic post-operative pain 02/18/201807/01 Dysuria 03/27/2016 02/14/2017 Abnormal finding on chest xray 2015 0 02/14/2017 documented as of this encounter (statuses as of 01/18/2022) [facility] History of Past illness Narrative* Problem Noted Date Resolved Date Chronic post-operative pain 02/18/201807/01 Dysuria 03/27/2016 02/14/2017 Abnormal finding on chest xray 2015 0 02/14/2017 documented as of this encounter (statuses as of 01/30/2022) [facility] of Past illness Narrative* Problem Noted Date Resolved Date Chronic post-operative pain 02/18/201807/01 Dysuria 03/27/2016 02/14/2017 Abnormal finding on chest xray 2015 0 02/14/2017 documented as of this encounter (statuses as of 02/05/2022) [facility] of Past illness Narrative* Problem Noted Date Resolved Date Chronic post-operative pain 02/18/201807/01 Dysuria 03/27/2016 02/14/2017 Abnormal finding on chest xray 2015 0 02/14/2017 documented as of this encounter (statuses as of 02/10/2022) [facility] of Past illness Narrative* Problem Noted Date Resolved Date Chronic post-operative pain 02/18/201807/01 Dysuria 03/27/2016 02/14/2017 Abnormal finding on chest xray 2015 0 02/14/2017 documented as of this encounter (statuses as of 02/16/2022) [facility] of Past illness Narrative* Problem Noted Date Resolved Date Chronic post-operative pain 02/18/201807/01 Dysuria 03/27/2016 02/14/2017 Abnormal finding on chest xray 2015 0 02/14/2017 documented as of this encounter (statuses as of 04/19/2022) [facility] of Past illness Narrative* Problem Noted Date Resolved Date Chronic post-operative pain 02/18/201807/01 Dysuria 03/27/2016 02/14/2017 Abnormal finding on chest xray 2015 0 02/14/2017 documented as of this encounter (statuses as of 04/19/2022) [facility] of [facility] Narrative* Problem Noted Date Resolved Date Chronic post-operative pain 02/18/201807/01 Dysuria 03/27/2016 02/14/2017 Abnormal finding on chest xray 2015 0 02/14/2017 documented as of this encounter (statuses as of 07/17/2022) [facility] Narrative* Problem Noted Date Resolved Date Chronic post-operative pain 02/18/201807/01 Dysuria 03/27/2016 02/14/2017 Abnormal finding on chest xray 2015 0 02/14/2017 documented as of this encounter (statuses as of 11/06/2022) [facility] of [facility] Narrative* Problem Noted Date Resolved Date Chronic post-operative pain 02/18/201807/01 Dysuria 03/27/2016 02/14/2017 Abnormal finding on chest xray 2015 0 02/14/2017 documented as of this encounter (statuses as of 12/24/2022) [facility] of [facility] Narrative* Problem Noted Date Resolved Date Chronic post-operative pain 02/18/201807/01 Dysuria 03/27/2016 02/14/2017 Abnormal finding on chest xray 2015 0 02/14/2017 documented as of this encounter (statuses as of 01/01/2023) [facility] Narrative* Problem Noted Date Diagnosed Date Resolved Date Chronic post-operative pain 02/18/2018 07/23/2018 Dysuria 03/27/2016 02/14/2017 Abnormal finding on chest xray 2015 02/14/2017 documented as of this encounter (statuses as of 04/08/2023) [facility] of [facility] Narrative* Problem Noted Date Diagnosed Date Resolved Date Chronic post-operative pain 02/18/2018 07/23/2018 Dysuria 03/27/2016 02/14/2017 Abnormal finding on chest xray 2015 02/14/2017 documented as of this encounter (statuses as of 06/13/2023) [facility] noteThere may be information available, but it has not been provided by the sender.[facility] Work Phone: Evaluation note* Diagnosis Hypothyroidism, unspecified type- Primary Vitamin D deficiency Unspecified vitamin D deficiency Gastroesophageal reflux disease without esophagitis Esophageal reflux Numbness and tingling of both lower extremities Extremity numbness Disturbance of skin sensation Hyperlipidemia LDL goal <100 Other and unspecified hyperlipidemia Acute pain of left knee [facility] Diagnosis Hyperlipidemia LDL goal <100- Primary Other and unspecified hyperlipidemia [facility] Diagnosis Benign essential tremor Essential and other specified forms of tremor [facility] Diagnosis Epigastric pain- Primary Abdominal pain, epigastric Nausea Nausea alone Chronic nausea Nausea alone Chronic constipation Unspecified constipation Gastroesophageal reflux disease without esophagitis Esophageal reflux [facility] Diagnosis Polyneuropathy- Primary Unspecified hereditary and idiopathic peripheral neuropathy Other dietary vitamin B12 deficiency anemia Encounter for screening for human immunodeficiency virus (HIV) Special screening examination for other specified viral diseases Restless legs syndrome Restless legs syndrome (RLS) Tremor, essential Essential and other specified forms of tremor Lumbar radiculopathy Thoracic or lumbosacral neuritis or radiculitis, unspecified Essential hypertension, Essential hypertension, benign Hyperlipidemia LDL goal <100 Other and unspecified hyperlipidemia DDD (degenerative disc disease), lumbar Degeneration of lumbar or lumbosacral intervertebral disc [facility] Diagnosis Polyneuropathy- Primary Unspecified hereditary and idiopathic peripheral neuropathy Numbness and tingling of both lower extremities Tremor, essential Essential and other specified forms of tremor Essential hypertension, Essential hypertension, benign Hyperlipidemia LDL goal <100 Other and unspecified hyperlipidemia Hypothyroidism, unspecified type DDD (degenerative disc disease), lumbar Degeneration of lumbar or lumbosacral intervertebral disc Restless legs syndrome Restless legs syndrome (RLS) [facility] Instruction Description Start Date Completed [facility] Work Phone: Summary Purpose Family History No Family History Records FoundUnknown Family Member Name Dates Details Family history of colonic po lyps: Father(V18.51, Z83.71) Status:Active Unknown Family Member Name Dates Details Family history of colonic po lyps: Father(V18.51, Z83.71) Status:Active Advance Directives No Advanced Directives Records FoundDocuments on File Type Date Recorded 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 Advance Directive(s) 05/30/2020 11:21 AM Advance Directive(s) 05/16/2020 8:58 AM Advance Directive(s) 05/22/2019 9:22 AM Advance Directive(s) 05/14/2019 3:20 PM Advance Directive(s) 02/08/2016 7:36 AM Documents on File Type Date Recorded 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 Advance Directive(s) 05/30/2020 11:21 AM Advance Directive(s) 05/16/2020 8:58 AM Advance Directive(s) 05/22/2019 9:22 AM Advance Directive(s) 05/14/2019 3:20 PM Advance Directive(s) 02/08/2016 7:36 AM Chief Complaint Chief Complaint Description Start Date left knee pain Preliminary chief co mplaint data, not yet signed by the author as of Reason for Referral Specialty Diagnoses / Procedures Referred By Nicki shin Referred To Contact Gastroenterology Diagnoses Epigastric pain Nausea Chronic nausea Chronic constipation Gastroesophageal reflux disease without esophagitis Procedures CONSULT TO GASTROENTEROLOGY OFFICE/OUTPATIENT [facility] HIGH MDM 60-74 MINUTES Parul Cummings APRN.ANTIQUE REFINISHER [address] [place] [address] Referral ID Status Reason Start Date Expiration Date Visits Requested Visits Authorized [id number] Authorized PCP Requested Referral 04/19/2022 04/19/2023 1 1 Additional Source Comments INFORMATION SOURCE (unrecogn ized section and content) DATE CREATED AUTHOR AUTHOR'S ORGANIZ ATION 05/31/2021 [facility] DATE CREATED AUTHOR AUTHOR'S ORGANIZ ATION 06/15/2023 [facility] DATE CREATED AUTHOR AUTHOR'S ORGANIZ ATION 08/02/2023 [facility] Source Comments (unrecognize d section and content) In the event this informatio n is protected by the Federal Confidentiality of Alcohol and Drug Abuse Patient Records regulations: The Federal rules restrict any use of the information to criminally investigate or prosecute any alcohol or drug abuse patient.[facility] the event this information is protected by the Federal Confidentiality of Alcohol and Drug Abuse Patient Records regulations: The Federal rules restrict any use of the information to criminally investigate or prosecute any alcohol or drug abuse patient.[facility] the event this information is protected by the Federal Confidentiality of Alcohol and Drug Abuse Patient Records regulations: The Federal rules restrict any use of the information to criminally investigate or prosecute any alcohol or drug abuse patient.[facility] the event this information is protected by the Federal Confidentiality of Alcohol and Drug Abuse Patient Records regulations: The Federal rules restrict any use of the information to criminally investigate or prosecute any alcohol or drug abuse patient.[facility]In the event this information is protected by the Federal Confidentiality of Alcohol and Drug Abuse Patient Records regulations: The Federal rules restrict any use of the information to criminally investigate or prosecute any alcohol or drug abuse patient.[facility] HospitalIn the event this information is protected by the Federal Confidentiality of Alcohol and Drug Abuse Patient Records regulations: The Federal rules restrict any use of the information to criminally investigate or prosecute any alcohol or drug abuse patient.[facility]In the event this information is protected by the Federal Confidentiality of Alcohol and Drug Abuse Patient Records regulations: The Federal rules restrict any use of the information to criminally investigate or prosecute any alcohol or drug abuse patient.[facility]In the event this information is protected by the Federal Confidentiality of Alcohol and Drug Abuse Patient Records regulations: The Federal rules restrict any use of the information to criminally investigate or prosecute any alcohol or drug abuse patient.[facility] HospitalIn the event this information is protected by the Federal Confidentiality of Alcohol and Drug Abuse Patient Records regulations: The Federal rules restrict any use of the information to criminally investigate or prosecute any alcohol or drug abuse patient.[facility]In the event this information is protected by the Federal Confidentiality of Alcohol and Drug Abuse Patient Records regulations: The Federal rules restrict any use of the information to criminally investigate or prosecute any alcohol or drug abuse patient.[facility] the event this information is protected by the Federal Confidentiality of Alcohol and Drug Abuse Patient Records regulations: The Federal rules restrict any use of the information to criminally investigate or prosecute any alcohol or drug abuse patient.[facility] HospitalIn the event this information is protected by the Federal Confidentiality of Alcohol and Drug Abuse Patient Records regulations: The Federal rules restrict any use of the information to criminally investigate or prosecute any alcohol or drug abuse patient.[facility] HospitalIn the event this information is protected by the Federal Confidentiality of Alcohol and Drug Abuse Patient Records regulations: The Federal rules restrict any use of the information to criminally investigate or prosecute any alcohol or drug abuse patient.[facility] HospitalIn the event this information is protected by the Federal Confidentiality of Alcohol and Drug Abuse Patient Records regulations: The Federal rules restrict any use of the information to criminally investigate or prosecute any alcohol or drug abuse patient.[facility] HospitalIn the event this information is protected by the Federal Confidentiality of Alcohol and Drug Abuse Patient Records regulations: The Federal rules restrict any use of the information to criminally investigate or prosecute any alcohol or drug abuse patient.[facility] Reason for Visit (unrecogniz ed section and content) Reason Comments Release Of Medical Records Reason For Visit Description Start Date New/Est - 1st visit with physician 01/11 Preliminary reason f or visit data, not yet signed by the author as of left knee pain Reason Comments F/U 6 Month Reason Comments Rectal Problem Reason Onset Date Comments Refill Request 02/16/2022 Reason Comments Abdominal Pain Reason Comments Fax Referral Reason Onset Date Comments Refill Request 07/17/2022 Reason Onset Date Comments Population Health Navigation Outreach 11/06/2022 [facility] Reason Comments New Patient Restless leg syndrom e. Tingling in both feet. Also feeling tingling sensation in right hand. Neuropathy Reason Onset Date Comments Population Health Navigation Outreach 01/01/2023 [facility] Reason Comments Tremor Reason Comments Received Outside Medical Records Care Teams (unrecognized sec tion and content) Hyperbaric Nurse Relationship Specialty Start Date End Date Genevieve Alfaro MD [address] [place], [place] [id number] PCP - General Internal Medicine 07/11/21 Hyperbaric Nurse Relationship Specialty Start Date End Date Genevieve Alfaro MD [address] [place], [place] [id number] PCP - General Internal Medicine 07/11/21 Hyperbaric Nurse Relationship Specialty Start Date End Date Genevieve Alfaro MD [facility] [place], [place] [id number] PCP - General Internal Medicine 07/11/21 Hyperbaric Nurse Relationship Specialty Start Date End Date Genevieve Alfaro MD [address] [place] [address] PCP - General Internal Medicine 07/11/21 Hyperbaric Nurse Relationship Specialty Start Date End Date Genevieve Alfaro MD [address] [place] [address] PCP - General Internal Medicine 07/11/21 Hyperbaric Nurse Relationship Specialty Start Date End Date Genevieve Alfaro MD [address] [place] [address] PCP - General Internal Medicine 07/11/21 Hyperbaric Nurse Relationship Specialty Start Date End Date Genevieve Alfaro MD [address] [place] [address] PCP - General Internal Medicine 07/11/21 Hyperbaric Nurse Relationship Specialty Start Date End Date Hans Armenta III, MD [address] PCP - General Family Medicine 02/14/23 Hyperbar[employer] Nurse Relationship Specialty Start Date End Date Hans Armenta III, MD [place]ESS PCP - General Family [facility] 02/14/23 FOR RECORDS PERTAINING TO PATIENTS WHO ARE OR HAVE BEEN ENROLLED IN A CHEMICAL DEPENDENCY/SUBSTANCEABUSE PROGRAM, SOME INFORMATION MAY BE OMITTED. This clinical summary was aggregated from multiple sources. Caution should be exercised in using it in the provision of clinical care. This summary normalizes information from multiple sources, and as a consequence, information in this document may materially change the coding, format and clinical context of patient data. In addition, data may be omitted in some cases. CLINICAL DECISIONS SHOULD BE BASED ON THE PRIMARY CLINICAL RECORDS. [employer] [email or web address] provides no warranty or guarantee of the accuracy or completeness of information in this document.
== END | disposition home or self-care (01) ==
PROVIDERS: PCP Family Medicine; Referring Provider Surgery Vascular Surgery; Visit Provider Surgery Vascular Surgery
DX: I77.1 Stricture of artery (principal); I73.9 Peripheral vascular disease, unspecified
CPT/HCPCS: 93922

== ENCOUNTER → 2023-10-24 | Outpatient (CLI) | payer MEDICARE, OTHER, SELFPAY ==
[2023-10-24 11:20] LABS: Erythrocyte Sedimentation Rate 1 mm/hr (0-30)
--- OUTSIDE RECORDS SUMMARY | 2023-10-24 11:28 | XMS RPT_ITS | CCD ---
Author Name Unknown Address [address] [place] [address] Organization [facility] Care Team Providers Care Char Puller Name Role Phone Hayden Wolff Unavailable Unavailable [...] Translations: [ATORVASTATIN CALCIUM] Drug Allergy 03-20-200 7 [facility] (17 sources) Sulfamethoxazole; Translations: [SULFAMETHOXAZOLE ] Drug Allergy 1 Other: See Comments [facility] Work Phone: (1 source) House dust mite; Translations: [DUST MITES] allergy to substance 1 [facility] Work Phone: (1 source) Latex; Translations: [LATEX] allergy to substance 1 [facility] Work Phone: (1 source) Mold Extract; Translations: [MOLD] Drug Allergy [address] [facility] Work Phone: (1 source) Seasonal allergy; Translations: [SEASONAL] allergy to substance [address] [facility] Work Phone: (1 source) Sulfacetamide Drug Allergy 1 [facility] Work Phone: (1 source) Surgical adhesive tape; Translations: [SURGICAL TAPE] allergy to substance 2 [facility] Work Phone: (1 source) PLANT POLLENS; Translations: [PLANT POLLENS] allergy to substance 1 hay fever [facility] Work Phone: Medications Current Medications Medication [...] 162.6 cm Heather Sneed MD Work Phone: [facility] 04-08-2023 09:22-0400 Body weight 74.53 kg Heather Sneed MD Work Phone: [facility] 04-08-2023 09:22-0400 Diastolic blood pressure 82 mm[Hg] Heather Sneed MD Work Phone: [facility] 04-08-2023 09:22-0400 Heart rate 92 /min Heather Sneed MD Work Phone: [facility] 04-08-2023 09:22-0400 Systolic blood pressure 127 mm[Hg] Heather Sneed MD Work Phone: [facility] 12-24-2022 13:20-0400 Body temperature 97.59 [degF] Heather Sneed MD Work Phone: [facility] 12-24-2022 13:20-0400 Body weight 72.76 kg Heather Sneed MD Work Phone: [facility] 12-24-2022 13:20-0400 Diastolic blood pressure 74 mm[Hg] Heather Sneed MD Work Phone: [facility] 12-24-2022 13:20-0400 Heart rate 72 /min Heather Sneed MD Work Phone: [facility] 12-24-2022 13:20-0400 Systolic blood pressure 139 mm[Hg] Heather Sneed MD Work Phone: [facility] 04-19-2022 07:57-0400 Body weight 70.31 kg Parul Cummings LOG PREPARER.ELECTRICAL MAINTENANCE ENGINEER Work Phone: [facility] 04-19-2022 07:57-0400 Diastolic blood pressure 80 mm[Hg] Parul Cummings LOG PREPARER.ELECTRICAL MAINTENANCE ENGINEER Work Phone: [facility] 04-19-2022 07:57-0400 Heart rate 69 /min Parul Cummings LOG PREPARER.ELECTRICAL MAINTENANCE ENGINEER Work Phone: [facility] 04-19-2022 07:57-0400 Respiratory rate 16 /min Parul Cummings LOG PREPARER.ELECTRICAL MAINTENANCE ENGINEER Work Phone: [facility] 04-19-2022 07:57-0400 SaO2% (BldA) [Mass fraction] 98 % Parul Cummings LOG PREPARER.ELECTRICAL MAINTENANCE ENGINEER Work Phone: [facility] 04-19-2022 07:57-0400 Systolic blood pressure 118 mm[Hg] Parul Cummings LOG PREPARER.ELECTRICAL MAINTENANCE ENGINEER Work Phone: [facility] 01-30-2022 09:40-0400 Body weight 72.58 kg Parul Cummings LOG PREPARER.ELECTRICAL MAINTENANCE ENGINEER Work Phone: [facility] 01-30-2022 09:40-0400 Diastolic blood pressure 78 mm[Hg] Parul Cummings LOG PREPARER.ELECTRICAL MAINTENANCE ENGINEER Work Phone: [facility] 01-30-2022 09:40-0400 Heart rate 84 /min Parul Cummings LOG PREPARER.ELECTRICAL MAINTENANCE ENGINEER Work Phone: [facility] 01-30-2022 09:40-0400 Respiratory rate 16 /min Parul Cummings LOG PREPARER.ELECTRICAL MAINTENANCE ENGINEER Work Phone: [facility] 01-30-2022 09:40-0400 Systolic blood pressure 130 mm[Hg] Parul Cummings LOG PREPARER.ELECTRICAL MAINTENANCE ENGINEER Work Phone: [facility] 07-03-2017 10:09-0400 BMI (Body Mass Index) 28.26 kg/m2 [email or web address] Work Phone: 07-03-2017 10:09-0400 Height 163.07 cm [email or web address] Work Phone: 07-03-2017 10:09-0400 Pulse (Heart Rate) 85 /min [email or web address] Work Phone: 07-03-2017 10:09-0400 Respiratory Rate 22 /min [email or web address] Work Phone: 07-03-2017 10:09-0400 Weight 75.16 kg Rowan [facility] Work Phone: NEGATED: Highlighted [id number] 08:25-0400 Body height 162.56 cm [facility] Work Phone: NEGATED: Highlighted [id number] 08:25-0400 Body height 163 cm Mary Ann Kong [facility] Work Phone: NEGATED: Highlighted [id number] 08:25-0400 Body mass index (BMI) [Ratio] 27.56 kg/m2 [facility] Work Phone: NEGATED: Highlighted [id number] 08:25-0400 Body weight 72.58 kg Mary Ann Kong [facility] Work Phone: NEGATED: Highlighted [id number] 08:25-0400 Body weight 73 kg Mary Ann Kong [facility] Work Phone: Encounters Encounter Date Encounter Type Care Provider Facility Start: 08-01-2023 End: 08-01-2023 ambulatory CASH GALARZA Facility:[facility] Start: 07-01-2023 End: 07-01-2023 ambulatory CASH ARIAS Facility:[facility] Start: 04-08-2023 Telephone encounter Heather Sneed MD [...] BMI out nrm niesha nof/u Timothy W [employer] Work Phone: Start: 01-11-2022 End: 01-11-2022 Current tobacco non-user cad cap copd pv dm Chance W [employer] Work Phone: Start: 01-11-2022 End: 01-11-2022 Docrev cur meds by ramandeep Aguirre W [employer] Work Phone: Start: 01-11-2022 End: 01-11-2022 Pain doc pos and plan Timothy W [employer] Work Phone: Start: 01-11-2022 End: 01-11-2022 Patient encounter procedure Chance W [facility] [employer] Work Phone: Start: 10-17-2021 Adult depression scr [...] panel - Serum or Plasma Lipid Screening [facility] Start: 02-03-2027 LIPID SCREEN LIPID SCREEN [facility] Start: 10-28-2025 LIPID SCREEN LIPID SCREEN [facility] Start: 05-30-2025 Colonoscopy COLONOSCOPY [facility] Start: 05-30-2025 COLORECTAL CANCER SCREENING COLORECTAL CANCER SCREENING [facility] Start: 12-22-2024 DIABETES SCREEN DIABETES SCREEN [facility] Start: 12-22-2024 Diabetes Screening Diabetes Screenin g [facility] Start: 05-31-2023 Influenza vaccination C [facility] Start: 04-19-2023 BP CONTROLLED (<130/80) BP CONTROLLE D (<130/80) [facility] Start: 02-06-2023 Mammography [facility] Start: 01-10-2023 BP CONTROLLED (<130/80) BP CONTROLLE D (<130/80) [facility] Start: 12-24-2022 End: 02-23-2023 Alpha tocopherol [Mass/volume] in Serum or Plasma [facility] Work Phone: Immunizations Immunization Date Immunization Notes Care Provider Fa [facility] 06-29-2022 influenza virus vacc ine, unspecified formulation Heather Sneed MD Work Phone: [facility] 07-22-2021 influenza, high-dose , quadrivalent vaccine (FLUZONE HIGH DOSE QUADRIVALENT) Genevieve Alfaro MD Work Phone: [facility] 12-22-2020 COVID-19 vaccine, fu ll dose (MODERNA) Genevieve Alfaro MD Work Phone: [facility] 11-24-2020 COVID-19 vaccine, fu ll dose (MODERNA) Genevieve Alfaro MD Work Phone: [facility] 07-02-2020 influenza, high-dose , quadrivalent vaccine (FLUZONE HIGH DOSE QUADRIVALENT) Genevieve Alfaro MD Work Phone: [facility] 07-20-2019 influenza, high dose seasonal, preservative-free Genevieve Alfaro MD Work Phone: [facility] 07-11-2018 influenza, high dose seasonal, preservative-free Genevieve Alfaro MD Work Phone: [facility] Work Phone: 07-11-2017 pneumococcal polysaccharide vaccine, 23 valent Genevieve Alfaro MD Work Phone: [facility] Work Phone: 08-16-2016 influenza, high dose seasonal, preservative-free Genevieve Alfaro MD Work Phone: [facility] 06-28-2016 pneumococcal conjuga te vaccine, 13 valent Genevieve Alfaro MD Work Phone: [facility] Work Phone: 06-26-2013 zoster vaccine, live Genevieve peterson MD Work Phone: [facility] 06-25-2006 tetanus and diphther ia toxoids, adsorbed, preservative free, for adult use (2 Lf of tetanus toxoid and 2 Lf of diphtheria toxoid) Genevieve Alfaro MD Work Phone: [facility] Payers Date Payer Category Payer Medicare [id number] 2019 Unknown MMO MMO MEDICARE SUPPLEMENT [id number] 2019-Present [phone] [address] [place] [address] Indemnity [id number] 2019 Unknown MMO MMO MEDICARE SUPPLEMENT [id number] 2019-Present [phone] [place] [address] Indemnity [id number] 2017 Medicare MEDICARE MEDICAR E A AND B [id number] 2017-Present [phone] [address] [address] [place] [address] Medicare [id number] 2017 Medicare MEDICARE MEDICAR E A AND B [id number] 2017-Present [phone] [place] [address] Medicare [id number] 2016 Medicare [id number] Private Health Insurance [id number] Social History Date Type Detail Facility Start: 12-15-2018 End: 04-08-2023 Never smoker Never smoker [facility] Start: 11-07-2011 End: 12-24-2022 Tobacco smoking status NHIS Never smoked tobacco [facility] Start: 10-17-2021 End: 04-08-2023 Alcohol intake Current drinker of alcohol (finding) [facility] Start: 1950 Sex Assigned At Not on file [facility] Start: 12-19-2021 End: 04-19-2022 Exposure to SARS-CoV-2 (event) Not sure [facility] Start: 01-11-2022 End: 01-11-2022 Assertion Unknown if ever smoked [facility] Work Phone: Start: 11-07-2011 End: 12-24-2022 Tobacco use and exposure Smokeless tobacco non-user [facility] Start: 12-15-2018 End: 04-08-2023 Tobacco use panel [facility] Adult Depression Screening Assessment 0 [facility] Clinical Notes 02-18-2018 to 08-01-2023 Telephone Encounter - Prabha Mai RN - 04/08/2023 4:02 PM EDTTelephone Encounter - Leena Grande - 04/08/2023 3:15 PM EDTPatient Heather Somers MD - 04/08/2023 9:36 AM EDT Note Date & Type Note Facility 08-01-2023 Note HNO ID: [id number] Author: Cash Galarza MD Service: ? Author Type: Physician Type: Progress Notes Filed: 08/01/2023 7:42 PM Note Text: [facility] - NEW PATIENT EVALUATION Primary Care Provider: Cash Arias DO [address] [facility] [address] [facility] [address] Dear Cash Arias DO: I had the [...] nights a we (more content not included)... [facility] 07-01-2023 Note HNO ID: [id number] Author: Ej Pereira APRN.ACCOUNTING SUPERVISOR Service: ? Author Type: Nurse Practitioner Type: [...] w/ lysis of adhesions LAP COLECTOMY, SIGMOID W/HOLTER SCANNING TECHNICIAN 11/11/2017 [facility]-Dr. Hayden Wolff PAST SURGICAL HISTORY OF LAPAROSCOPY [...] cough. Negative for (more content not included)... [facility] 04-08-2023 Miscellaneous Notes Carotid Duplex study results in scanned documents for your review. Received fax from [facility] with Carotid Duplex Scan dated 01/10/23. Scanned into [employer]. documented in this encounter [facility] 04-08-2023 Note HNO ID: [id number] Author: Heather Sneed MD Service: ? Author Type: Physician Type: Progress Notes Filed: 04/08/2023 10:40 AM Note Text: [facility] Follow up/ Established patient visit Individuals who were included in, or assisted with the encounter were: Hallie Talavera Heather Sneed MD Chief Complaint/Issues: Hallie Talavera is a 72 year old R handed female w PMH HTN, HLP, hypothyroidism, seen in the [facility] for: RLS, essential tremor and neuropathy Most Recent Neurological Assessment and Plan: Last Filed Values Date of Most Recent Assessment and Plan 12/24/22 Specialty General Neurology Assessment Hallie Talavera is a 72 year old R handed female w PMH HTN, HLP, hypothyroidism, seen in the [facility] for: 1. RLS, essential [...] not on aspirin. She will see a upward bound director next week. RF, ANTONETTE, MMA, copper, syphilis, [...] PMH HTN, HLP, hypothyroidism, seen in the [facility] for: 1. RLS, essential tremor and neuropathy -- Numbness and weakness in the lower legs: Likely multifactorial due to the circulatory issues, arthritis, and may be superimposed small fiber polyneuropathy. I asked her to follow-up with her PCP and vascular (more content not included)... [facility] 04-08-2023 Instructions Heather Sneed MD - 04/08/2023 10:08 AM EDT --Please discuss with your upward bound director about whether it's ok for you to [...] in 6 months documented in this encounter [facility] 04-08-2023 History of Presen t illness Narrative Images from the original note were not included. [facility] Follow up/ Established patient visit Individuals who were included in, or assisted with the encounter were: Hallie Talavera Heather Sneed MD Chief Complaint/Issues: Hallie Talavera is a 72 year old R handed female w PMH HTN, HLP, hypothyroidism, seen in the [facility] for: RLS, essential tremor and neuropathy Most Recent Neurological Assessment and Plan: Last Filed Values Date of Most Recent Assessment and Plan 12/24/22 Specialty General Neurology Assessment Hallie Talavera is a 72 year old R handed female w PMH HTN, HLP, hypothyroidism, seen in the [facility] for: 1. RLS, essential [...] not on aspirin. She will see a upward bound director next week. RF, ANTONETTE, MMA, copper, syphilis, [...] PMH HTN, HLP, hypothyroidism, seen in the [facility] for: 1. RLS, essential [...] will also discuss about this with her upward bound director at the upcoming cardiology appointment. --HTN --HLP --hypothyroidism --B12 deficiency: Supplemented PLAN -- We will try propanolol 60 mg daily. She will discuss about it with her upward bound director. She was stopped at if she feels [...] w/ lysis of adhesions LAP COLECTOMY, SIGMOID W/HOLTER SCANNING TECHNICIAN 11/11/2017 [facility]-Dr. Hayden Wolff PAST SURGICAL HISTORY OF LAPAROSCOPY [...] Negative Negative SM Antibody <0.2 <1.0 AI CONTINUOUS TOWEL ROLLER ANTIBODY BLOOD Result Value Ref Range CONTINUOUS TOWEL ROLLER Antibody QUAL Negative Negative CONTINUOUS TOWEL ROLLER Antibody <0.2 <1.0 AI ANTI SSA BLD [...] Dara 1 Antibody <0.2 <1.0 AI RIBOSOMAL CONTINUOUS TOWEL ROLLER AB BLD Result Value Ref Range Ribosomal CONTINUOUS TOWEL ROLLER Qualitative Negative Negative Ribosomal CONTINUOUS TOWEL ROLLER <0.2 <1.0 AI CHROMATIN ANTIBODY Result Value [...] which included preparing to see the patient, [id number] patient care, completing clinical documentation, obtaining and/or reviewing separately obtained history, performing a medically appropriate examination, counseling and educating the patient/family/caregiver, ordering medications, tests, or procedures, independently interpreting results (not separately reported), communicating results to the patient/family/caregiver, and care coordination (not separately reported). Heather Sneed MD documented in this encounter [facility] 01-01-2023 Note Patient Outreach (NE TNAV) HALLIE TALAVERA ([id number]) 1950 F Date Time Provider Department 01/01/23 YOMAIRA NG During your visit today, we recorded the following information about you: Yomaira Ng MA 01/01/2023 1:49 PM Addendum POPULATION HEALTH NAVIGATION OUTREACH Action/ INVALID NUMBER [employer] MESSAGE SENT Patient reply thru [employer]. She was a new PCP. D69.6 - Thrombocytopenia (HCC) - [id number] Last Billed 10/17/2021 ANNUAL MEDICARE WELLNESS ANNUAL PCP TEAM CHRONIC DISEASE VISIT due on 08/14/2022 MAMMOGRAM due on 02/06/2023 Patient Identified by Name and : NO Outreach Outcome/Action Unable to reach patient: Phone number not valid / voicemail full Dermira message sent PCP field updated Did you [...] Other dietary vitamin (more content not included)... [facility] 01-01-2023 Note HNO ID: [id number] Author: Yomaira Ng MA Service: ? Author Type: Laboratory Immunologist Type: Progress Notes Filed: 01/01/2023 1:49 PM Note Text: POPULATION HEALTH NAVIGATION OUTREACH Action/FYI INVALID NUMBER [employer] MESSAGE SENT Patient reply thru My[employer]. She was a new PCP. D69.6 - Thrombocytopenia ([facility]) - [id number] Last Billed 10/17/2021 ANNUAL MEDICARE WELLNESS ANNUAL [...] Ng MA January 01, 2023 8:09 AM [facility] 01-01-2023 History of Presen t illness Narrative POPULATION HEALTH NAVIGATION OUTREACH Action/FYI INVALID NUMBER [employer] MESSAGE SENT Patient reply thru [employer]. She was a new PCP. D69.6 - Thrombocytopenia ([facility]) - [id number] Last Billed 10/17/2021 ANNUAL MEDICARE WELLNESS ANNUAL [...] 2023 8:09 AM documented in this encounter [facility] 12-24-2022 Note HNO ID: [id number] Author: Heather Sneed MD Service: ? Author Type: Physician Type: Progress Notes Filed: 12/24/2022 3:45 PM Note Text: [facility] New Patient Evaluation Consulting Provider: SELF Individuals who were included in, or assisted with the encounter were: Hallie Talavera Heather Sneed MD Chief Complaint/Issues: Hallie Talavera is a 72 year old R handed female w PMH HTN, HLP, hypothyroidism, seen in the [facility] for: RLS, essential tremor [...] PMH HTN, HLP, hypothyroidism, seen in the [facility] for: 1. RLS, essential [...] HFA) 90 m (more content not included)... [facility] 12-24-2022 Instructions Heather Sneed MD - [...] in 3-4 months documented in this encounter [facility] 12-24-2022 History of Presen t illness Narrative Images from the original note were not included. [facility] New Patient Evaluation Consulting Provider: SELF Individuals who were included in, or assisted with the encounter were: Hallie Talavera Heather Sneed MD Chief Complaint/Issues: Hallie Talavera is a 72 year old R handed female w PMH HTN, HLP, hypothyroidism, seen in the [facility] for: RLS, essential tremor [...] PMH HTN, HLP, hypothyroidism, seen in the [facility] for: 1. RLS, essential [...] w/ lysis of adhesions LAP COLECTOMY, SIGMOID W/HOLTER SCANNING TECHNICIAN 11/11/2017 [facility]. Hayden Wolff PAST SURGICAL HISTORY OF LAPAROSCOPY [...] which included preparing to see the patient, [id number] patient care, completing clinical documentation, obtaining and/or reviewing separately obtained history, performing a medically appropriate examination, counseling and educating the patient/family/caregiver, ordering medications, tests, or procedures, independently interpreting results (not separately reported), communicating results to the patient/family/caregiver, and care coordination (not separately reported). Heather Sneed MD documented in this encounter [facility] 11-06-2022 Note Patient Outreach (LOCO RUCKER) HALLIE TALAVERA ([id number]) 1950 F Date Time Provider Department 11/06/22 YOMAIRA NG During your visit today, we recorded the following information about you: Yomaira Ng MA 11/06/2022 2:25 PM Signed POPULATION HEALTH NAVIGATION OUTREACH Action/FYI LVM [employer] MESSAGE SENT ANNUAL MEDICARE WELLNESS EXAM INFLUENZA(1) due on 05/31/2022 ANNUAL PCP TEAM CHRONIC DISEASE VISIT due on 08/14/2022 Patient Identified by Name and : NO Outreach Outcome/Action Unable to reach patient: Left message [employer] message sent Did you use a PCP [...] Encounter Status:Closed by YOMAIRA NG on 11/06/22 [facility] 11-06-2022 Note HNO ID: [id number] Author: Yomaira Ng MA Service: ? Author Type: Laboratory Immunologist Type: Progress Notes Filed: 11/06/2022 2:25 PM Note Text: POPULATION HEALTH NAVIGATION OUTREACH Action/ [facility] [employer] MESSAGE SENT ANNUAL MEDICARE WELLNESS EXAM INFLUENZA(1) due on 05/31/2022 ANNUAL PCP TEAM CHRONIC DISEASE VISIT due on 08/14/2022 Patient Identified by Name and : NO Outreach Outcome/Action Unable to reach patient: Left message [employer] message sent Did you use a PCP [...] Ng MA November 06, 2022 10:38 AM [facility] 11-06-2022 History of Presen t illness Narrative POPULATION HEALTH NAVIGATION OUTREACH Action/FYI LVM [employer] MESSAGE SENT ANNUAL MEDICARE WELLNESS EXAM INFLUENZA(1) due on 05/31/2022 ANNUAL PCP TEAM CHRONIC DISEASE VISIT due on 08/14/2022 Patient Identified by Name and : NO Outreach Outcome/Action Unable to reach patient: Left message [employer] message sent Did you use a PCP [...] 2022 10:38 AM documented in this encounter [facility] 07-17-2022 Miscellaneous Notes Last OV: 04/19/2022 Next OV: 07/30/2022 documented in this encounter [facility] 04-19-2022 Miscellaneous Notes Pt called I and asked to have gastro referral faxed over to Dr Lanier. Referral was faxed to [phone]. documented in this encounter [facility] 04-19-2022 History of Presen t illness [...] knee, has an upcoming appointment [facility]. She notes both brothers now with CAD. [...] medial meniscectomy on February 28, 2022 with [facility]. Notes that she was taking 600 [...] 1.00 - 4.00 k/uL 0.97 (L) 1.16 [place]% % 9.8 10.6 Abs [place] <0.87 k/uL 0.44 0.58 [place]% % 4.5 [...] up with gastroenterology, consult placed. Parul Cummings APRN.RESMHA Medical Decision Making: Problems: Moderate: 1+ chronic illnesses with change Risk: Moderate: Drug management Medical Decision Making Level: 4 - Moderate documented in this encounter [facility] 02-16-2022 Miscellaneous Notes Patient phones requesting refills as follows: Pending Prescriptions Disp Refills METOPROLOL SUCCINATE ER 25 MG TABLET,EXTENDED RELEASE 24 HR 30 tablet 5 Sig: Take 1 tablet by mouth once daily. NICA: No JUD-01/30/22 Labs-02/03/22 NOV-07/30/22 med filled 01/26/21 Please review and advise. Palmira Shepaprd LPN documented in this encounter [facility] 02-09-2022 Miscellaneous Notes Reason for call: patient had blood and mucous on the toilet paper when wiping after having a bowel movement two different times. Patient is also having some rectal discomfort Outcome for call: see PCP within 2 weeks, transferred to [place] at the appointment center to make an [...] passed blood and mucous Protocols used: RECTAL [id number] documented in this encounter [facility] 02-05-2022 Miscellaneous Notes Patient notified of [...] ng/mL 37.0 The 10-year ASCVD risk score (Lusby OMARI Jr., et al., 2013) is: 14.3% Values used to calculate the score: Age: 71 years Sex: Female Is Non- : No Diabetic: No Tobacco smoker: No Systolic Blood Pressure: 130 mmHg Is BP treated: Yes HDL Cholesterol: 41 mg/dL Total Cholesterol: 234 mg/dL documented in this encounter [facility] 01-30-2022 History of Presen t illness [...] 1.00 - 4.00 k/uL 0.97 (L) 1.16 [place]% % 9.8 10.6 Abs [place] <0.87 k/uL 0.44 0.58 [place]% % 4.5 [...] activity was identified. 01/30/2022 by Parul Cummings APRN.ELECTRICAL MAINTENANCE ENGINEER 6. Hyperlipidemia LDL goal <100 - ICD9: 272.4, ICD10: E78.5 When last checked suboptimal control, recheck today. Currently taking Zocor, prior intolerance of atorvastatin with muscle aches. - LIPID PANEL, NONFASTING 7. Acute pain of left knee M 25. 562 Consistent with meniscus tear, has upcoming appointment with [facility] Parul Cummings APRN.CNS Medical Decision Making: Problems: Moderate: 2+ stable chronic illnesses Data: Unique test(s) ordered: 3+ Risk: Moderate: Drug management Medical Decision Making Level: 4 - Moderate . documented in this encounter [facility] 01-18-2022 History of Presen t illness [...] 2022 1:51 PM documented in this encounter [facility] 01-10-2022 Miscellaneous Notes Patient's picked up disk Pt would like to pick up driver report and disc from her knee xr today. Informed patient there is usually 24 hours notice. Please inform her if she is not able to get this today. Her appt with Ortho outside of Clinic at 8:15 tomorrow. Call her if this is no going to be done before 5. documented in this encounter [facility] 01-01-2022 Miscellaneous Notes Patient notified of [...] Amanda Garcia RN documented in this encounter [facility] 06-21-2018 History of Presen t illness [...] abdominal pain.PSH includes cholecystectomy, hysterectomy, bladder suspension. [facility] Work Phone: documented as of this encounter (statuses as of 01/01/2022) [facility] History of Past illness Narrative* Problem Noted Date Resolved Date Chronic post-operative pain 02/18/201807/01 Dysuria 03/27/2016 02/14/2017 Abnormal finding on chest xray 2015 0 02/14/2017 documented as of this encounter (statuses as of 01/10/2022) [facility] History of Past illness Narrative* Problem Noted Date Resolved Date Chronic post-operative pain 02/18/201807/01 Dysuria 03/27/2016 02/14/2017 Abnormal finding on chest xray 2015 0 02/14/2017 documented as of this encounter (statuses as of 01/18/2022) [facility] History of Past illness Narrative* Problem Noted Date Resolved Date Chronic post-operative pain 02/18/201807/01 Dysuria 03/27/2016 02/14/2017 Abnormal finding on chest xray 2015 0 02/14/2017 documented as of this encounter (statuses as of 01/30/2022) [facility] History of Past illness Narrative* Problem Noted Date Resolved Date Chronic post-operative pain 02/18/201807/01 Dysuria 03/27/2016 02/14/2017 Abnormal finding on chest xray 2015 0 02/14/2017 documented as of this encounter (statuses as of 02/05/2022) [facility] History of Past illness Narrative* Problem Noted Date Resolved Date Chronic post-operative pain 02/18/201807/01 Dysuria 03/27/2016 02/14/2017 Abnormal finding on chest xray 2015 0 02/14/2017 documented as of this encounter (statuses as of 02/10/2022) [facility] History of Past illness Narrative* Problem Noted Date Resolved Date Chronic post-operative pain 02/18/201807/01 Dysuria 03/27/2016 02/14/2017 Abnormal finding on chest xray 2015 0 02/14/2017 documented as of this encounter (statuses as of 02/16/2022) [facility] of Past illness Narrative* Problem Noted Date Resolved Date Chronic post-operative pain 02/18/201807/01 Dysuria 03/27/2016 02/14/2017 Abnormal finding on chest xray 2015 0 02/14/2017 documented as of this encounter (statuses as of 04/19/2022) [facility] of Past illness Narrative* Problem Noted Date Resolved Date Chronic post-operative pain 02/18/201807/01 Dysuria 03/27/2016 02/14/2017 Abnormal finding on chest xray 2015 0 02/14/2017 documented as of this encounter (statuses as of 04/19/2022) [facility] of Past illness Narrative* Problem Noted Date Resolved Date Chronic post-operative pain 02/18/201807/01 Dysuria 03/27/2016 02/14/2017 Abnormal finding on chest xray 2015 0 02/14/2017 documented as of this encounter (statuses as of 07/17/2022) [facility] of Past illness Narrative* Problem Noted Date Resolved Date Chronic post-operative pain 02/18/201807/01 Dysuria 03/27/2016 02/14/2017 Abnormal finding on chest xray 2015 0 02/14/2017 documented as of this encounter (statuses as of 11/06/2022) [facility] of [facility] illness Narrative* Problem Noted Date Resolved Date Chronic post-operative pain 02/18/201807/01 Dysuria 03/27/2016 02/14/2017 Abnormal finding on chest xray 2015 0 02/14/2017 documented as of this encounter (statuses as of 12/24/2022) [facility] of Past illness Narrative* Problem Noted Date Resolved Date Chronic post-operative pain 02/18/201807/01 Dysuria 03/27/2016 02/14/2017 Abnormal finding on chest xray 2015 0 02/14/2017 documented as of this encounter (statuses as of 01/01/2023) [facility] of Past illness Narrative* Problem Noted Date Diagnosed Date Resolved Date Chronic post-operative pain 02/18/2018 07/23/2018 Dysuria 03/27/2016 02/14/2017 Abnormal finding on chest xray 2015 02/14/2017 documented as of this encounter (statuses as of 04/08/2023) [facility] History of Past illness Narrative* Problem Noted Date Diagnosed Date Resolved Date Chronic post-operative pain 02/18/2018 07/23/2018 Dysuria 03/27/2016 02/14/2017 Abnormal finding on chest xray 2015 02/14/2017 documented as of this encounter (statuses as of 06/13/2023) [facility] noteThere may be information available, but it has not been provided by the sender.[facility] Work Phone: Evaluation note* Diagnosis Hypothyroidism, unspecified type- Primary Vitamin D deficiency Unspecified vitamin D deficiency Gastroesophageal reflux disease without esophagitis Esophageal reflux Numbness and tingling of both lower extremities Extremity numbness Disturbance of skin sensation Hyperlipidemia LDL goal <100 Other and unspecified hyperlipidemia Acute pain of left knee [facility] Diagnosis Hyperlipidemia LDL goal <100- Primary Other and unspecified hyperlipidemia [facility] Diagnosis Benign essential tremor Essential and other specified forms of tremor [facility] Diagnosis Epigastric pain- Primary Abdominal pain, epigastric Nausea Nausea alone Chronic nausea Nausea alone Chronic constipation Unspecified constipation Gastroesophageal reflux disease without esophagitis Esophageal reflux [facility] Diagnosis Polyneuropathy- Primary Unspecified hereditary [...] lumbosacral intervertebral disc [facility] Diagnosis Polyneuropathy- Primary Unspecified hereditary [...] legs syndrome (RLS) [facility] Instruction Description Start Date Completed [facility] Work Phone: Summary Purpose Family History No Family History Records FoundUnknown Family Member Name Dates Details Family history of colonic po lyps: Father(V18.51, Z83.71) Status:Active Unknown Family Member Name Dates Details Family history of colonic po lyps: Father(V18.51, Z83.71) Status:Active Advance Directives No Advanced Directives Records FoundDocuments on File Type Date 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 Advance Directive(s) 05/30/2020 11:21 AM Advance Directive(s) 05/16/2020 8:58 AM Advance Directive(s) 05/22/2019 9:22 AM Advance Directive(s) 05/14/2019 3:20 PM Advance Directive(s) 02/08/2016 7:36 AM Documents on File Type Date 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 Advance Directive(s) 05/30/2020 11:21 AM [...] without esophagitis Procedures CONSULT TO GASTROENTEROLOGY OFFICE/OUTPATIENT [facility] HIGH MDM 60-74 MINUTES Parul Cummings APRN.ELECTRICAL MAINTENANCE ENGINEER [address] [place] [address] Referral ID Status Reason Start Date Expiration Date Visits Requested Visits Authorized [id number] Authorized PCP Requested Referral 04/19/2022 04/19/2023 1 1 Additional Source Comments INFORMATION SOURCE (unrecogn ized section and content) DATE CREATED AUTHOR AUTHOR'S ORGANIZ ATION 05/31/2021 [facility] DATE CREATED AUTHOR AUTHOR'S ORGANIZ ATION 06/15/2023 [facility] DATE CREATED AUTHOR AUTHOR'S ORGANIZ ATION 08/02/2023 [facility] Source Comments (unrecognize d section and content) In the event this informatio n is protected by the Federal Confidentiality of Alcohol and Drug Abuse Patient Records regulations: The Federal rules restrict any use of the information to criminally investigate or prosecute any alcohol or drug abuse patient.[facility] the event this information is protected by the Federal Confidentiality of Alcohol and Drug Abuse Patient Records regulations: The Federal rules restrict any use of the information to criminally investigate or prosecute any alcohol or drug abuse patient.[facility] the event this information is protected by the Federal Confidentiality of Alcohol and Drug Abuse Patient Records regulations: The Federal rules restrict any use of the information to criminally investigate or prosecute any alcohol or drug abuse patient.[facility] the event this information is protected by the Federal Confidentiality of Alcohol and Drug Abuse Patient Records regulations: The Federal rules restrict any use of the information to criminally investigate or prosecute any alcohol or drug abuse patient.[facility] the event this information is protected by the Federal Confidentiality of Alcohol and Drug Abuse Patient Records regulations: The Federal rules restrict any use of the information to criminally investigate or prosecute any alcohol or drug abuse patient.[facility] the event this information is protected by the Federal Confidentiality of Alcohol and Drug Abuse Patient Records regulations: The Federal rules restrict any use of the information to criminally investigate or prosecute any alcohol or drug abuse patient.[facility] the event this information is protected by the Federal Confidentiality of Alcohol and Drug Abuse Patient Records regulations: The Federal rules restrict any use of the information to criminally investigate or prosecute any alcohol or drug abuse patient.[facility] the event this information is protected by the Federal Confidentiality of Alcohol and Drug Abuse Patient Records regulations: The Federal rules restrict any use of the information to criminally investigate or prosecute any alcohol or drug abuse patient.[facility] the event this information is protected by the Federal Confidentiality of Alcohol and Drug Abuse Patient Records regulations: The Federal rules restrict any use of the information to criminally investigate or prosecute any alcohol or drug abuse patient.[facility] Hospital[facility] the event this information is protected [...] or prosecute any alcohol or drug abuse patient.[facility] Hospital[facility] the event this information is protected by the Federal Confidentiality of Alcohol and Drug Abuse Patient Records regulations: The Federal rules restrict any use of the information to criminally investigate or prosecute any alcohol or drug abuse patient.[facility] Hospital[facility] the event this information is protected by the Federal Confidentiality of Alcohol and Drug Abuse Patient Records regulations: The Federal rules restrict any use of the information to criminally investigate or prosecute any alcohol or drug abuse patient.[facility] the event this information is protected by the Federal Confidentiality of Alcohol and Drug Abuse Patient Records regulations: The Federal rules restrict any use of the information to criminally investigate or prosecute any alcohol or drug abuse patient.[facility] the event this information is protected by the Federal Confidentiality of Alcohol and Drug Abuse Patient Records regulations: The Federal rules restrict any use of the information to criminally investigate or prosecute any alcohol or drug abuse patient.[facility] Reason for Visit (unrecogniz ed section [...] Care Teams (unrecognized sec tion and content) Char Puller Relationship Specialty Start Date End Date Genevieve Alfaro MD [address] [place], [place] [id number] PCP - General Internal Medicine 07/11/21 Char Puller Relationship Specialty Start Date End Date Genevieve Alfrao MD [address] [place], [place] [phone] PCP - General Internal Medicine 07/11/21 Char Puller Relationship Specialty Start Date End Date Genevieve Alfaro MD [facility] [place], [place] [id number] PCP - General Internal Medicine 07/11/21 Char Puller Relationship Specialty Start Date End Date Genevieve Alfaro MD [address] [place] [address] PCP - General Internal Medicine 07/11/21 Char Puller Relationship Specialty Start Date End Date Genevieve Alfaro MD [address] [place] [address] PCP - General Internal Medicine 07/11/21 Char Puller Relationship Specialty Start Date End Date Genevieve Alfaro MD [address] [place] [address] PCP - General Internal Medicine 07/11/21 Char Puller Relationship Specialty Start Date End Date Genevieve Alfaro MD [address] [place] [address] PCP - General Internal Medicine 07/11/21 Char Puller Relationship Specialty Start Date End Date Hans Armenta III, MD [place]WARD[place] ADDRESS PCP - General Family Medicine 02/14/23 Char Puller Relationship Specialty Start Date End Date Hans Armenta III, MD [place]WARD[place] ADDRESS PCP - General Family [facility] 02/14/23 FOR RECORDS PERTAINING TO PATIENTS WHO [...] BE BASED ON THE PRIMARY CLINICAL RECORDS. [employer] [facility]. provides no warranty or guarantee of the accuracy or completeness of information in this document.
[2023-10-24 11:44] LABS: CRP 3.47 mg/L (0.0-3.0)
[2023-10-26 21:07] LABS: Gastrin, Serum 36 pg/mL (0-115)
== END | disposition home or self-care (01) ==
LOC: LAB 10:58
PROVIDERS: PCP Family Medicine; Referring Provider Internal Medicine Gastroenterology; Visit Provider Internal Medicine Gastroenterology
DX: R10.13 Epigastric pain (principal); K76.0 Fatty (change of) liver, not elsewhere classified
CPT/HCPCS: 36415; 82941; 85652; 86140

== ENCOUNTER → 2023-12-17 | Outpatient (CLI) | payer MEDICARE, OTHER, SELFPAY | END | disposition home or self-care (01) | PROVIDERS: PCP Family Medicine; Referring Provider Internal Medicine Gastroenterology; Visit Provider Internal Medicine Gastroenterology | DX: R10.13 Epigastric pain (principal); K76.0 Fatty (change of) liver, not elsewhere classified ==

== ENCOUNTER 2024-02-21 13:48 | Outpatient (CLI) | payer MEDICARE, OTHER, SELFPAY ==
--- NOTE | 2024-02-21 13:58 | CT_ITS ---
STUDY: CT CHEST WITHOUT CONTRAST REASON FOR EXAM: Female, 73 years old. HYPERLIPIDEMIA/STRONG FH OVERREAD ONLY RADIATION DOSAGE (If Supplied By Facility): CTDIvol = ( 12.19 ) mGy, DLP = ( 219.42 ) mGycm TECHNIQUE: Transaxial imaging was performed without the administration of intravenous contrast material. Individualized dose optimization techniques were used for this CT. COMPARISON: No relevant priors. FINDINGS: CHEST The lungs are normal. There is no demonstrated pleural abnormality. There are calcifications of the coronary arteries. Normal mediastinum. Normal hilar regions. Normal unenhanced pulmonary arteries. Normal aorta arch and descending thoracic aorta. There are mild degenerative changes of the thoracic spine. Small hiatal hernia. CT/Limited Chest CT Cardiac Only IMPRESSION: Normal unenhanced CT chest T abdomen examination. Electronically Signed: Felix Galeana MD at 14:58 EDT ,
--- NOTE | 2024-03-01 15:51 | CCTA_ITS ---
Calcium Scoring Date of Study:: 02/21/24 Indications Indications: Hyperlipidemia strong family history. Coronary Calcium Scoring: High-resolution Computed Tomographic imaging of the chest was performed on [02/21/24 ], with particular attention paid to the coronary arteries. Images from the examination were analyzed for the presence and extent of coronary artery calcification , using coronary calcium quantification software. The patient t olerated the procedure well and there were no complications. The results of the coronary calcification analysis are provided below. Findings Coronary Artery Left Main (LM): 0 Left Anterior Descending (LAD): 118 Left Circumflex (LCX): 44.8 Right Coronary Artery (RCA): 167 Total Agatston Score: 329.8 Percentile Rankin% TO 90% Calcium Scoring Interpretation: Different methods to categorize the overall amount of coronary plaque. Overall amount CAC SIS Visual of coronary plaque P1 Mild -100 <2 1-2 vessels with mild amount of plaque P2 Moderate 101-300 3-4 1-2 vessels with moderate amount, 3 vessels with mild amount of plaque P3 Severe 301-999 5-7 3 vessels with moderate amount, 1 vessel with severe amount of plaque P4 Extensive >1000 >8 2-3 vessels with severe amount of plaque Calcium Score: Severe: 3 vessels w/moderate amount, 1 vessel w/severe amt of plaque Conclusion: Moderate plaque noted in 3 vessels.
== END 2024-02-21 23:59 | disposition home or self-care (01) ==
LOC: CT 13:49
PROVIDERS: PCP Family Medicine; Referring Provider Family Medicine; Visit Provider Family Medicine
DX: E78.5 Hyperlipidemia, unspecified (principal); Z82.49 Family history of ischemic heart disease and other diseases of the circulatory system
CPT/HCPCS: 75571; 76380

== ENCOUNTER → 2024-02-25 | Outpatient (CLI) | payer MEDICARE, OTHER, SELFPAY ==
--- NOTE | 2024-02-25 09:49 | BD_ITS ---
STUDY: DUAL ENERGY X-RAY ABSORPTIOMETRY / DXA REASON FOR EXAM: Female, 73 years old. Osteopenia -- prior ones at [facility] TECHNIQUE: Bone Mineral Density (BMD) measurements of lumbar spine and bilateral hips were obtained. COMPARISON: None. FINDINGS: Lumbar Spine (L1-L4): g/cm2 (0.848) / T-score (-1.7) / Z-score (0.6) Findings are suggestive of osteopenia with a moderate fracture risk. Left Femur Total: g/cm2 (0.877) / T-score (-0.5) / Z-score (1.1) Left Femoral Neck: g/cm2 (0.738) / T-score (-1.0) / Z-score (1.0) Right Femur Total: g/cm2 (0.920) / T-score (-0.2) / Z-score (1.5) Right Femoral Neck: g/cm2 (0.712) / T-score (-1.2) / Z-score (0.7) BD/Dexa Bone Density Study IMPRESSION: The patient is considered osteopenic as outlined below according to World Ananda Organization (WHO) criteria with a moderate fracture risk. Reference Information: The T-score is the number of standard deviations above or below the standard which is normal for young adults at their peak bone mineral density. The World Health Organization (WHO) interprets the T-scores as follows: Above -1 Normal bone density Between -1 and -2.5 Osteopenia Equal to / or below -2.5 Osteoporosis As a practical clinical guideline, osteopenia may be graded as follows: Mild -1 through -1.5 Moderate -1.6 through -2.0 Severe -2.1 through -2.4 The Z-score is the number of standard deviations above or below age-matched controls. A Z-score of less than -1.5 would be considered abnormal. References: 1. NIH Osteoporosis and Related Bone Diseases www osteo.org 2. International Society for Clinical Densitometry www iscd.org 3. National Osteoporosis Foundation www nof.org Electronically Signed: Felix Galeana MD at 13:50 EDT ,
--- NOTE | 2024-02-25 09:49 | BI_ITS ---
MAMMOGRAPHY - BILATERAL SCREENING REASON FOR EXAM: Female, 73 years old. Routine annual screening examination. PERTINENT HISTORY: Non-contributory. TECHNIQUE: Digital bilateral breast josh (3D mammographic acquisition) in the CC and MLO projections. 2-D mediolateral oblique (MLO) and craniocaudad (CC) views of both breasts were obtained. CAD: Full Field Digital Mammography with Computer Added Detection was performed. COMPARISON: Comparison is made with prior study dated February 21, 2023 and February 06, 2022. FINDINGS: Breast Composition: The breasts are heterogeneously dense, which may obscure small masses. There are no dominant masses or suspicious calcifications. No other significant abnormalities are identified. There has been no significant change since the prior study. BI/SCRN MAMM (CAD)W/JOSH BILAT IMPRESSION: Stable bilateral screening mammogram. Yearly follow-up mammogram recommended. (A) ASSESSMENT CATEGORY: BIRADS Category 1: Negative. A letter regarding these results will be sent to the patient by the facility within 30 days. Approximately 10% of breast cancers are not detected by mammography. A normal mammogram should not delay biopsy of a clinically suspicious abnormality. [id number] Electronically Signed: Felix Galeana MD at 12:46 EDT ,
== END | disposition home or self-care (01) ==
LOC: OPBD 09:48
PROVIDERS: PCP Family Medicine; Referring Provider Nurse Practitioner Women's Health; Visit Provider Nurse Practitioner Women's Health
DX: Z12.31 Encounter for screening mammogram for malignant neoplasm of breast (principal); Z78.0 Asymptomatic menopausal state
CPT/HCPCS: 77063; 77067; 77080

== ENCOUNTER → 2024-04-06 | Outpatient (CLI) | payer MEDICARE, OTHER, SELFPAY | END | disposition home or self-care (01) | LOC: LABSPEC 11:00 | PROVIDERS: PCP Family Medicine; Referring Provider Nurse Practitioner Family; Visit Provider Nurse Practitioner Family | DX: N39.0 Urinary tract infection, site not specified (principal) | CPT/HCPCS: 87086 ==

== ENCOUNTER → 2024-04-08 | Outpatient (CLI) | payer MEDICARE, OTHER, SELFPAY ==
--- NOTE | 2024-04-08 12:56 | STRESSREP_ITS ---
Stress Test Report Exercise myocardial perfusion stress test. 73-year-old lady with a history of an abnormal calcium score Stress protocol: Resting EKG demonstrates normal sinus rhythm with a rate of 59 bpm resting blood pressure is 122/78 mmHg. The patient exercised according to the regular Dedrick protocol for a total duration of 4 minutes and 55 seconds attaining a maximum heart rate of 129 bpm which was 87% of maximum predicted heart rate; the maximum workload was 7 metabolic equivalents. At rest there were no ST or T wave changes noted to suggest ischemia and at peak exercise upsloping ST changes only were noted which did not meet the criteria for ischemia. No clinical angina was noted the test was terminated due to the target heart rate being a chieved/fatigue. The peak blood pressure was 164/72 mmHg. Rate-pressure product was 21,000. Myocardial perfusion protocol. 11.7 mCi of technetium 99m sestamibi was injected at rest. The patient ex ercised according to regular Dedrick protocol for total duration of 4 minutes and 55 seconds and at peak exercise 34.1 mCi of technetium 99m sestamibi was injected stress images were obtained stress and rest images were reconstructed in comparing the short axis vertical long and horizontal long axis. Gated images were also obtained. Perfusion SPECT analysis: Review of the stress images demonstrate normal uptake of tracer noted in all areas of the myocardium. The resting images similarly demonstrate normal uptake of tracer noted in all areas of the myocardium. No areas of reversibility are noted to suggest ischemia no previous infarct was noted. Gated SPECT analysis: The gated ejection fraction is 73%. Conclusion: Normal exercise myocardial perfusion stress test at a moderate workload Preserved ejection fraction.
== END | disposition home or self-care (01) ==
LOC: CVS 06:48
PROVIDERS: PCP Family Medicine; Referring Provider Nurse Practitioner Gerontology; Visit Provider Nurse Practitioner Gerontology
DX: R93.1 Abnormal findings on diagnostic imaging of heart and coronary circulation (principal); I25.10 Atherosclerotic heart disease of native coronary artery without angina pectoris
CPT/HCPCS: 78452; 93017; A9500; A4216

== ENCOUNTER → 2024-04-16 | Outpatient (CLI) | payer MEDICARE, OTHER, SELFPAY ==
[2024-04-16 08:15] LABS: Absolute Lymphocyte Count 1.31 X10^3/uL (0.83-4.51); Absolute Neutrophil Count 2.7 X10^3/uL (2.0-7.7); Basophil# 0.02 X10^3/uL; Basophil% 0.4 % (0-1); Eosinophil# 0.25 X10^3/uL; Eosinophils% 5.2 % (0-5); Hematocrit 46.3 % (37-47); Hemoglobin 15.3 g/dL (12.0-15.0); Lymphocyte # 1.31 X10^3/ul (0.83-4.51); Lymphocyte % 27.2 % (19-41); Mean Corpuscular Hgb 30.2 pg (27.0-32.0); Mean Corpuscular Volume 91.3 fL (81-99); Monocyte# 0.57 X10^3/uL; Monocyte% 11.8 % (0-10); NRBC Flagged by Analyzer 0 % (0-5); Neutrophil # 2.66 X10^3/uL (2.7-7.7); Neutrophil % 55.2 % (47-70); POSITIVE COUNT YES; Platelet Count 92 K/mm3 (150-450); RBC Distribution Width SD 43.3 fl (35.1-43.9); Red Blood Count 5.07 M/mm3 (4.2-5.4); White Blood Count 4.8 K/mm3 (4.4-11.0)
[2024-04-16 08:57] LABS: AST(SGOT) 10 U/L (15-37); Alanine Aminotransfer ALT/SGPT 17 U/L (13-56); Albumin, Serum 3.5 g/dL (3.2-5.0); Alkaline Phosphatase 88 U/L (45-117); Cholesterol 161 mg/dL (200); Globulin 2.8 g/dL (2.2-4.2); High Density Lipoprotein 38 mg/dL; Protein, Total 6.3 g/dL (6.4-8.2); Triglycerides 124 mg/dL; Very Low Density Lipoprotein 25 mg/dL (5-40)
== END | disposition home or self-care (01) ==
LOC: LAB 07:52
PROVIDERS: PCP Family Medicine; Referring Provider Nurse Practitioner Gerontology; Visit Provider Nurse Practitioner Gerontology
DX: E78.5 Hyperlipidemia, unspecified (principal); D69.6 Thrombocytopenia, unspecified
CPT/HCPCS: 36415; 80061; 80076; 85025

== ENCOUNTER 2024-06-15 05:50 | Day surgery (SDC) | payer MEDICARE, OTHER, SELFPAY ==
[2024-06-15] VITALS (12 sets, daily range): BP systolic 73–136; BP diastolic 51–69; PULSE 62–79; RESP 16–18; TEMP 36.4; O2SAT 92–100; BMI 27.5
--- NOTE | 2024-06-15 | GASB_PTH ---
PATIENT: ELIZABETH TALAVERA LOC: EN U#:[id number] AGE/SX: 74/F ROOM: RE06/15/[address]: Dr. Bridger Lanier DO : 1950 BED: DIS: 06/15/2024 SPEC #: [id number] RECD: 06/15/24 13:30 STATUS: CHRISTOS SHILPA #: [id number] JAYNE: 06/15/24 00:[address]: Bridger Lanier DEPT: SURGICAL PATHOLOGY RECD BY: Jorge Tello ENTERED: 06/16/24 09:40 SP TYPE: Gastric Bx OTHR DR: Dr. Sarah Huynh MD Tissues: A - Gastric mucous membrane B - Gastric mucous membrane Procedures: Surgery Specimen Level IV HEADER OPERATION: EGD with biopsies PRE-OP DIAGNOSIS: GERD, Epigastric abdominal pain TISSUE SUBMITTED: A- Pylorus biopsy, B- Gastric body biopsy MICROSCOPIC DIAGNOSIS A. Pylorus, biopsy: Mild gastritis. See microscopic description and comment. B. Gastric body, biopsy: Mild gastritis. See microscopic description and comment. MARQUISCharmaine 06/17/2024 COMMENT A. Alcian blue/PAS stain with matched control is used in the evaluation of the specimen. B. The results of immunohistochemistry for Helicobacter pylori will be reported separately ([id number]). MICROSCOPIC DESCRIPTION Slides are reviewed. A. The specimen shows fragments of gastric mucosa with chronic inflammatory cell infiltrates in the lamina propria consisting of lymphocytes and plasma cells, consistent with mild chronic gastritis. Focal intestinal metaplasia (goblet cell metaplasia) also noted. B. The specimen shows fragments of gastric mucosa with chronic inflammatory cell infiltrates in the lamina propria consisting of lymphocytes and plasma cells, consistent with mild chronic gastritis. GROSS DESCRIPTION A. Received in fixative is one container labeled with the patient's name and designated Pylorus biopsy. The specimen consists of two irregular fragments of light townsend soft tissue that in aggregate measure 0.8 x 0.5 x 0.1 cm. The specimen is totally submitted in one cassette. B. Received in fixative is one container labeled with the patient's name and designated Gastric body biopsy. The specimen consists of two irregular fragments of light townsend soft tissue that in aggregate measure 1.0 x 0.6 x 0.1 cm. The specimen is totally submitted in one cassette. 06/16/2024 TC:3 CPT:12267b3,73565
--- NOTE | 2024-06-15 06:25 | PCM.PRE.AN2 ---
ASA Classification* ASA Classification ASA Classification: 2 Assessment & Plan Anesthesia* Anesthesia Assessment Anesthesia Assessment: Discussed sedation and/or anesthesia options, risks, benefits, and alternatives with patient/parents/legal guardian/POA. Questions invited. The patient/parents/legal guardian/POA seems to understand and agrees to proceed with anesthesia plan. Reviewed the physical assessment, medical history, allergy history and patient home medications list prior to surgery/procedure/anesthetic and documented any changes. Performed airway and anesthesia risk assessments. Anesthesia Type Anesthesia Type: MAC Anesthesia Focused Assessment* Temperature: 97.5 F Pulse Rate: 62 Blood Pressure: 136/69 Respiratory Rate: 18 Pulse Ox: 100 Airway Assessment Mouth opens: >3 cm Mallampati Score: II Focused Labs Anesthesia Preop lab: CBC WBC 4.8 K/mm3 (4.4-11.0) 04/16/24 07:56 RBC 5.07 M/mm3 (4.2-5.4) 04/16/24 07:56 Hgb 15.3 g/dL (12.0-15.0) H 04/16/24 07:56 Hct 46.3 % (37-47) 04/16/24 07:56 Plt Count 92 K/mm3 (150-450) L 04/16/24 07:56 CHEMISTRY Potassium 3.8 mmol/L (3.5-5.1) 08/07/23 08:40 Sodium 142 mmol/L (136-145) 08/07/23 08:40 BUN 22 mg/dL (7-18) H 08/07/23 08:40 Creatinine 0.93 mg/dL (0.55-1.02) 08/07/23 08:40 Glucose 89 mg/dL (74-106) 08/07/23 08:40 TSH 2.93 uIU/mL (0.358-3.74) 08/07/23 08:40 COAG PT 13.1 SECONDS (11.7-14.9) 09/10/22 10:49 Pre-Assessment Diagnosis/Proposed Procedure Planned Operative Procedure(s): EGD Anesthesia History 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 When Was Last Pacemaker Check QUESTION #4 FULL TEXT: You/Your Family Experience fever (hyperthermia) with Anesthesia Last Oral Intake Last Oral intake: Last Oral Intake NPO since 22:00 06/15/24 06:21 Meds taken in AM with sips of Yes 06/15/24 06:21 water? Meds patient instructed to LEVOTHYROXINE 06/15/24 06:21 take am of surgery PONV PONV - amusement machine mechanic: PONV - amusement machine mechanic Female Yes 06/11/24 09:40 HX of Motion Sickness No 06/11/24 09:40 HX of N/V After Surgery No 06/11/24 09:40 Non-Smoker Yes 06/11/24 09:40 Duration of Surgery greater No 06/11/24 09:40 than 60 minutes Number of Risk Factors 2 06/11/24 09:40 PONV Score Moderate Risk 06/11/24 09:40 Height & Weight Height & Weight: Anesthesia: Height & Weight Height 5 ft 4 in 06/15/24 06:21 Weight: 72.7 kg 06/15/24 06:21 Body Mass Index (BMI) 27.5 06/15/24 06:21 Respiratory Assessment Respiratory Assessment - amusement machine mechanic: Respiratory Tract Infection Hx - amusement machine mechanic Hx Respiratory Tract Infection No 06/11/24 09:40 STOP Sleep Apnea STOP Sleep Apnea - amusement machine mechanic: STOP Sleep Apnea - amusement machine mechanic Hx Hypertension No 06/11/24 09:40 Hx Sleep Apnea No 06/11/24 09:40 CPAP BIPAP Do you snore loudly (louder No 06/11/24 09:40 than talking or can be heard Do you often feel tired/ No 06/11/24 09:40 fatigued/ sleepy during daytime? Has anyone observed you stop No 06/11/24 09:40 breathing during sleep? STOP Results Negative 06/11/24 09:40 QUESTION #5 FULL TEXT : Do you snore loudly (louder than talking or can be heard through closed doors)? 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 Specify any problems Hx of Preganancy in last 3 No 06/11/24 09:40 Months Nurse Filling Out Transfusion VCHRISTIN 06/11/24 09:40 & Questions: Date: 06/11/24 06/11/24 09:40 Time: 09:41 06/11/24 09:40 Patient unable to answer at this time (ie. confused, unrespo /Reproduction History /Reproductive History - amusement machine mechanic: /Reproductive Hx- amusement machine mechanic Hx Now No 06/11/24 09:40 Gestational Age (in weeks): EDC: Hx Hx Para Hx Section SAB No 06/11/24 09:40 Active Medications Active Medications: Current Medications Generic Name Dose Route Start Last Admin Trade Name Freq PRN Reason Stop Dose Admin Lactated Ringer's 1,000 mls @ 15 mls/hr 06/15/24 06:15 06/15/24 06:29 IV 15 mls/hr .Q48H ROXANN Administration PFSH Medical History (Updated 06/11/24 @ 09:40 by Anastasia Cox) Wears glasses Post-menopausal Thyroid disease Low platelet count History of hiatal hernia Gastric reflux Non-smoker History of echocardiogram History of stress test Cardiology follow-up encounter History of irregular heartbeat Neuropathy Essential tremor RLS (restless legs syndrome) Hypothyroidism Essential hypertension Fatty liver COVID-19 UTI (urinary tract infection) Trochanteric bursitis of right hip Thrombocytopenia IBS (irritable bowel syndrome) GERD (gastroesophageal reflux disease) Esophagitis Diverticulosis Cyst of left kidney Home Medications ?Medication ?Instructions ?Recorded ?Last Taken ?Type albuterol sulfate 90 mcg/actuation 2 puff inhalation Q4H PRN Sob &/Or 10/11/17 06/14/24 History aerosol inhaler Wheezing cholecalciferol (vitamin D3) 50 4,000 unit PO QDAY 10/11/17 06/14/24 History mcg (2,000 unit) capsule levothyroxine 50 mcg tablet 88 mcg PO DAILY 06/06/18 06/15/24 History sucralfate 1 gram tablet 1 g PO 4X/DAY PRN Acid Reflux 12/08/20 Unknown History aspirin 81 mg tablet,delayed 81 mg PO DAILY #30 tabs 03/17/24 Unknown Rx release (Adult Aspirin Regimen) gabapentin 600 mg tablet 300 mg PO QHS 03/17/24 06/14/24 History pantoprazole 40 mg tablet,delayed 40 mg PO DAILY PRN GERD 03/17/24 06/14/24 History release rosuvastatin 20 mg tablet 40 mg PO QHS 05/15/24 06/14/24 History estradiol 0.01% (0.1 mg/gram) 1 appful vaginal PRN 06/11/24 Unknown History vaginal cream Allergy/AdvReac Type Severity Reaction Status Date / Time Sulfa (Sulfonamide Allergy Intermediate Other Verified 06/11/24 09:31 Antibiotics) atorvastatin (From Lipitor) Allergy Mild itching Verified 06/11/24 09:31 adhesive tape AdvReac Rash Verified 06/11/24 09:31 Family History Father Heart disease Mother Heart disease Hypertension Thyroid disorder CVA (cerebral vascular accident) Brother Heart disease Brother Heart disease Other IBS (irritable bowel syndrome) Surgical History S/P hysterectomy S/P cholecystectomy S/P hernia repair (~01/14/19) S/P appendectomy S/P colectomy Social History Smoking Status: Never smoker alcohol intake: current alcohol intake frequency: holidays/special occasions only substance use type: does not use caffeine: Yes what type of physical activity do you participate in: walking seatbelt use: always do you feel safe at home: Yes additional social history: - Luis Patient and are both retired Review of Systems (Anesthesia) ROS Narrative System reviewed and no additional complaints, except as documented.
[2024-06-15] MEDS: Lactated Ringers 1,000 ML 15 ML IV (06:29)
--- NOTE | 2024-06-15 06:44 | PCM.PRE.AN2 ---
ASA Classification* ASA Classification ASA Classification: 2 Assessment & Plan Anesthesia* Anesthesia Assessment Anesthesia Assessment: Discussed sedation and/or anesthesia options, risks, benefits, and alternatives with patient/parents/legal guardian/POA. Questions invited. The patient/parents/legal guardian/POA seems to understand and agrees to proceed with anesthesia plan. Reviewed the physical assessment, medical history, allergy history and patient home medications list prior to surgery/procedure/anesthetic and documented any changes. Performed airway and anesthesia risk assessments. Anesthesia Type Anesthesia Type: MAC History Source History Obtained from:: Patient and Chart Anesthesia Focused Assessment* Temperature: 97.5 F Pulse Rate: 62 Blood Pressure: 136/69 Respiratory Rate: 18 Pulse Ox: 100 Oxygen Delivery Method: Room Air Airway Assessment Mouth opens: >3 cm Mallampati Score: III Teeth Condition: Intact Neck Range of motion (ROM): Limited ROM (Slight decrease in extension) Focused Labs Anesthesia Preop lab: CBC WBC 4.8 K/mm3 (4.4-11.0) 04/16/24 07:56 RBC 5.07 M/mm3 (4.2-5.4) 04/16/24 07:56 Hgb 15.3 g/dL (12.0-15.0) H 04/16/24 07:56 Hct 46.3 % (37-47) 04/16/24 07:56 Plt Count 92 K/mm3 (150-450) L 04/16/24 07:56 CHEMISTRY Potassium 3.8 mmol/L (3.5-5.1) 08/07/23 08:40 Sodium 142 mmol/L (136-145) 08/07/23 08:40 BUN 22 mg/dL (7-18) H 08/07/23 08:40 Creatinine 0.93 mg/dL (0.55-1.02) 08/07/23 08:40 Glucose 89 mg/dL (74-106) 08/07/23 08:40 TSH 2.93 uIU/mL (0.358-3.74) 08/07/23 08:40 COAG PT 13.1 SECONDS (11.7-14.9) 09/10/22 10:49 Pre-Assessment Diagnosis/Proposed Procedure Planned Operative Procedure(s): EGD Anesthesia History 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 When Was Last Pacemaker Check QUESTION #4 FULL TEXT: You/Your Family Experience fever (hyperthermia) with Anesthesia Last Oral Intake Last Oral intake: Last Oral Intake NPO since 22:00 06/15/24 06:21 Meds taken in AM with sips of Yes 06/15/24 06:21 water? 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: PONV - manager telemarketing Female Yes 06/11/24 09:40 HX of Motion Sickness No 06/11/24 09:40 HX of N/V After Surgery No 06/11/24 09:40 Non-Smoker Yes 06/11/24 09:40 Duration of Surgery greater No 06/11/24 09:40 than 60 minutes Number of Risk Factors 2 06/11/24 09:40 PONV Score Moderate Risk 06/11/24 09:40 Height & Weight Height & Weight: Anesthesia: Height & Weight Height 5 ft 4 in 06/15/24 06:21 Weight: 72.7 kg 06/15/24 06:21 Body Mass Index (BMI) 27.5 06/15/24 06:21 Respiratory Assessment Respiratory Assessment - manager telemarketing: Respiratory Tract Infection Hx - manager telemarketing Hx Respiratory Tract Infection No 06/11/24 09:40 STOP Sleep Apnea STOP Sleep Apnea - manager telemarketing: STOP Sleep Apnea - manager telemarketing Hx Hypertension No 06/11/24 09:40 Hx Sleep Apnea No 06/11/24 09:40 CPAP BIPAP Do you snore loudly (louder No 06/11/24 09:40 than talking or can be heard Do you often feel tired/ No 06/11/24 09:40 fatigued/ sleepy during daytime? Has anyone observed you stop No 06/11/24 09:40 breathing during sleep? STOP Results Negative 06/11/24 09:40 QUESTION #5 FULL TEXT : Do you snore loudly (louder than talking or can be heard through closed doors)? 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 Specify any problems Hx of Preganancy in last 3 No 06/11/24 09:40 Months Nurse Filling Out Transfusion VCHRISTIN 06/11/24 09:40 & Questions: Date: 06/11/24 06/11/24 09:40 Time: 09:41 06/11/24 09:40 Patient unable to answer at this time (ie. confused, unrespo /Reproduction History /Reproductive History - manager telemarketing: /Reproductive Hx- manager telemarketing Hx Now No 06/11/24 09:40 Gestational Age (in weeks): EDC: Hx Hx Para Hx Section SAB No 06/11/24 09:40 Active Medications Active Medications: Current Medications Generic Name Dose Route Start Last Admin Trade Name Freq PRN Reason Stop Dose Admin Lactated Ringer's 1,000 mls @ 15 mls/hr 06/15/24 06:15 06/15/24 06:29 IV 15 mls/hr .Q48H ROXANN Administration PFSH Medical History Wears glasses Post-menopausal Thyroid disease Low platelet count History of hiatal hernia Gastric reflux Non-smoker History of echocardiogram History of stress test Cardiology follow-up encounter History of irregular heartbeat Neuropathy Essential tremor RLS (restless legs syndrome) Hypothyroidism Essential hypertension Fatty liver COVID-19 UTI (urinary tract infection) Trochanteric bursitis of right hip Thrombocytopenia IBS (irritable bowel syndrome) GERD (gastroesophageal reflux disease) Esophagitis Diverticulosis Cyst of left kidney Home Medications ?Medication ?Instructions ?Recorded ?Last Taken ?Type albuterol sulfate 90 mcg/actuation 2 puff inhalation Q4H PRN Sob &/Or 10/11/17 06/14/24 History aerosol inhaler Wheezing cholecalciferol (vitamin D3) 50 4,000 unit PO QDAY 10/11/17 06/14/24 History mcg (2,000 unit) capsule levothyroxine 50 mcg tablet 88 mcg PO DAILY 06/06/18 06/15/24 History sucralfate 1 gram tablet 1 g PO 4X/DAY PRN Acid Reflux 12/08/20 Unknown History aspirin 81 mg tablet,delayed 81 mg PO DAILY #30 tabs 03/17/24 Unknown Rx release (Adult Aspirin Regimen) gabapentin 600 mg tablet 300 mg PO QHS 03/17/24 06/14/24 History pantoprazole 40 mg tablet,delayed 40 mg PO DAILY PRN GERD 03/17/24 06/14/24 History release rosuvastatin 20 mg tablet 40 mg PO QHS 05/15/24 06/14/24 History estradiol 0.01% (0.1 mg/gram) 1 appful vaginal PRN 06/11/24 Unknown History vaginal cream Allergy/AdvReac Type Severity Reaction Status Date / Time Sulfa (Sulfonamide Allergy Intermediate Other Verified 06/11/24 09:31 Antibiotics) atorvastatin (From Lipitor) Allergy Mild itching Verified 06/11/24 09:31 adhesive tape AdvReac Rash Verified 06/11/24 09:31 Family History Father Heart disease Mother Heart disease Hypertension Thyroid disorder CVA (cerebral vascular accident) Brother Heart disease Brother Heart disease Other IBS (irritable bowel syndrome) Surgical History S/P hysterectomy S/P cholecystectomy S/P hernia repair (~01/14/19) S/P appendectomy S/P colectomy Social History Smoking Status: Never smoker alcohol intake: current alcohol intake frequency: holidays/special occasions only substance use type: does not use caffeine: Yes what type of physical activity do you participate in: walking seatbelt use: always do you feel safe at home: Yes additional social history: - Luis Patient and are both retired Review of Systems (Anesthesia) ROS Narrative System reviewed and no additional complaints, except as documented.
--- NOTE | 2024-06-15 07:00 | IMM_PTH ---
PATIENT: ELIZABETH TALAVERA LOC: EN U#:[id number] AGE/SX: 74/F ROOM: RE06/15/[address]: Dr. Bridger Lanier DO : 1950 BED: DIS: 06/15/2024 SPEC #: [id number] RECD: 06/16/24 11:25 STATUS: CHRISTOS REQ #: [id number] JAYNE: 06/15/24 07:[address]: Bridger Lanier DEPT: IMMUNOHISTOCHEMISTRY RECD BY: Marek Santana ENTERED: 06/16/24 11:26 SP TYPE: IMMUNO OTHR DR: Dr. Sarah Huynh MD Tissues: B - Gastric mucous membrane Procedures: H Pylori (initial) PHYSICIAN & INSTITUTION [place] [address] SPECIMEN INFORMATION: Tissue Source: B- Gastric body biopsy Clinical Info: GERD, epigastric abdominal pain Specimen Number: [id number] CPT code: 18709 METHODOLOGY: Deparaffinized sections of prefer/formalin-fixed tissue or PAP/DQ stained slides are incubated with monoclonal/polyclonal antibodies/oligonucleotide probes. Localization is made via biotin free immunoperoxidase method. Appropriate controls are performed and reacted as expected. Results on target cell population are indicated in the following table: RESULTS: ANTIBODY / CLONE RESULT Block B H Pylori (polyclonal) negative These tests were developed and their performance characteristics determined by [facility]. They may not have been cleared or approved by the U.S. Food and Drug Administration. The FDA has determined that such clearance or approval is not necessary. The above immunohistochemical/dualISH markers are ordered and reviewed by the Pathologist. INTERPRETATION: B. Gastric body, biopsy: Negative for Helicobacter pylori organisms. MARQUIS/ 06/23/2024
--- NOTE | 2024-06-15 07:16 | HP.PCM_ITS ---
History and Physical Date of Admission: 06/15/24 HPI HPI Chief Complaint: f/u Details: ELIZABETH TALAVERA, is a 74 F who presents to the office today for f/u Prior workup: ? EGD/colonoscopy 05.30.20 [facility] EGD erythematous duodenopathy ? Colonoscopy diverticulosis ? Small bowel Xray 09.27.20 without acute/chronic finding ? Acute abd series 10.24.20 without acute/chronic finding ? CT abd/pel 03.27.21 hepatic steatosis; small hiatal hernia *BGI established 07.02.22 with epigastric pain and nausea occurring intermittently throughout the week for the last year; PPI used. ENT follows with laryngoscopy performed noting erythematous esophagus. Constipation managed with MiraLAX and benefiber with positive results. Reports colonic resection 2018 to address sigmoid stricture causing obstruction and high perforation risk. ? Biochemical 07.02.22 CBC (plt L116), ESR, CMP, CRP, LDH, GAME, VICKY comp, ANCA (apANCA H1:20), ZABRINA, celiac, IBD without pertinent abnormality.? FIB4 1.45 ? AST [id number]-s.bili 0.2 ? GET 07.25.22 WNL OV 09.10.22 further hepatic workup. Change to esomeprazole as she finds it more effective. Continue MiraLAX and Benefiber for constipation. ? Biochemical 09.10.22 coag, ferritin, GGTP, AMA, ASM WNL ? US/elastography 09.27.22 hepatic measurement 13.1cm with fatty infiltration, stiffness 12.5kPa; increased pancreatic echogenicity; mild right hydronephrosis. ? Biochemical .02.19 ANCA profile WNL ? US/elastography 03.05.23 hepatic measurement 13.4cm with fatty infiltration, stiffness 6kPa; normal pancreas OV 03.13.23 Ursodiol stop r/t stomach upset. Continue Vit E. ? Biochemical (PCP) 08.07.23 CBC (plt L120), AST L8-ALT 19-AP89- t.bili 0.4? FIB4 1.1 WSA seen 09.13.23 for epigastric abdominal pain with high suspicion of IBS as etiology. Recommending EGD. OV 10.24.24 epigastric pain with nausea continues intermittently occurring for a few days and then resolving until the next episode, occurring monthly or less. OV 8.16.14 Patient is here for f/u with complaints of episodic dull epigastric pain associated with nausea and vomiting. Episodes are happening around every 4 months. Her last episode was around the 02 of April and she saw her PCP. She took Carafate 4x per day and this was helpful. Her pain is now resolved. She has not been able to identify any food triggers. She denies taking pantoprazole daily. She would like to get an EGD. Her last lipase was years ago and wnl. ROS Const Constitutional: No fatigue, fever(s) or weight change ENT ENT: No difficulty swallowing Gastro GI: Positive for constipation and heartburn; No abdominal pain, belching, bloating, change in bowel habits, change in stool character, coffee ground emesis, cramping, diarrhea, difficulty swallowing, feeling full early, excessive flatus, incontinent of stools, Vomiting blood/hematemesis, Blood in stool, loose stools, Black,tarry stools, nausea/dyspepsia, pain with swallowing, vomiting or other Musc Musculoskeletal: Positive for numbness, tingling and restless legs; No joint pain Skin Skin: No yellowing of the eye or itchy eyes Neuro Neurology: Positive for numbness, tingling and restless legs Psych Psychiatric: No anxiety and No depression Endo Endocrine: No fatigue or weight change Aller/Imm Allergy/Immunologic: No itchy eyes Dash/Lymp Hematologic/Lymphatic: No easy bleeding or easy bruising Exam Const General: cooperative and comfortable Nutritional Appearance: average body habitus and well nourished HENMT Head: normal to inspection Ears: hearing grossly normal bilaterally Nose: external nose normal Face and sinus: normal facial exam Mouth: lip normal Eyes General: appearance normal, both eyes and all related structures Neck Neck: normal visual inspection Chest Chest palpation & inspection: normal inspection of the chest Resp Effort & Inspection: normal respiratory effort and able to speak in complete sentences Cardio Palpation: normal PMI GI Inspection: normal to inspection Palpation: no hepatosplenomegaly Skin General: no rashes or lesions noted Neuro General: patient alert Extrem General: normal to inspection Psych Affect: normal affect Assessment and Plan Assessment and Plan (1) GERD (gastroesophageal reflux disease): Status: Chronic (2) Epigastric abdominal pain: Status: Chronic Plan: Patient is here today for assessment of her episodic epigastric pain. Last colonoscopy 2019 with erythematous duodenopathy. Differential diagnosis includes pancreatitis, GERD, or PUD -Will schedule patient for EGD; she is not taking PPI daily just as she needs. Recommended taking it daily in the morning 30 minutes before eating. She will take Carafate as needed for her epigastric pain. -Ordered lipase -We will consider other testing in the future if symptoms persist -Her constipation is controlled with miralax as needed -She is no longer taking ursodiol or vitamin E for her fatty liver; last elastography with normal stiffness -She will f/u in 6 months - Orders: Orders Lipase Today ERIC Long R10.13 - Epigastric pain Medications: Changed From rosuvastatin 20 mg PO QHS 30 tabs 11RF To rosuvastatin 40 mg PO QHS Jzazy REYES, PA I have examined the patient and the H&P has been reviewed. There are no clinical changes since date of exam.
--- NOTE | 2024-06-15 07:37 | OP.EGD_ITS ---
Patient Name: Hallie Guzman Procedure Date: 06/15/2024 7:21 AM Date of : 1950 Age: 74 Procedure: Upper GI endoscopy Indications: Epigastric abdominal pain Providers: Bridger Lanier DO Medicines: Monitored Anesthesia Care Patient Profile: This is a 74 year old female. Refer to note in patient chart for documentation of history and physical. Patient has symptoms of acute epigastric abdominal pain. Complications: No immediate complications. Procedure: Pre-Anesthesia Assessment: - Prior to the procedure, a History and Physical was performed, and patient medications and allergies were reviewed. The patient is competent. The risks and benefits of the procedure and the sedation options and risks were discussed with the patient. All questions were answered and informed consent was obtained. Patient identification and proposed procedure were verified by the physician in the pre-procedure area. Mental Status Examination: alert and oriented. Airway Examination: normal oropharyngeal airway and neck mobility. Respiratory Examination: clear to auscultation. CV Examination: normal. Prophylactic Antibiotics: The patient does not require prophylactic antibiotics. Prior Anticoagulants: The patient has taken no anticoagulant or antiplatelet agents. ASA Grade Assessment: II - A patient with mild systemic disease. After reviewing the risks and benefits, the patient was deemed in satisfactory condition to undergo the procedure. The anesthesia plan was to use monitored anesthesia care (MAC). Immediately prior to administration of medications, the patient was re-assessed for adequacy to receive sedatives. The heart rate, respiratory rate, oxygen saturations, blood pressure, adequacy of pulmonary ventilation, and response to care were monitored throughout the procedure. The physical status of the patient was re-assessed after the procedure. After obtaining informed consent, the endoscope was passed under direct vision. Throughout the procedure, the patient's blood pressure, pulse, and oxygen saturations were monitored continuously. The Endoscope was introduced through the mouth, and advanced to the second part of duodenum. The upper GI endoscopy was accomplished without difficulty. The patient tolerated the procedure well. Scope In: 7:26:48 AM Scope Out: 7:31:43 AM Total Procedure Duration Time 0 hours 4 minutes 55 seconds Findings: The examined esophagus was normal. A medium-sized hiatal hernia was present. A benign-appearing, intrinsic moderate stenosis was found at the pylorus. This was traversed. Biopsies were taken with a cold forceps for histology. Verification of patient identification for the specimen was done. Estimated blood loss was minimal. Patchy mildly erythematous mucosa without bleeding was found in the gastric body. Biopsies were taken with a cold forceps for histology. Verification of patient identification for the specimen was done. Estimated blood loss was minimal. Biopsies were taken with a cold forceps for Helicobacter pylori testing. Verification of patient identification for the specimen was done. Estimated blood loss was minimal. A 5 mm non-bleeding diverticulum was found in the second portion of the duodenum. Impression: - Normal esophagus. - Medium-sized hiatal hernia. - Gastric stenosis was found at the pylorus. Biopsied. - Erythematous mucosa in the gastric body. Biopsied. - Non-bleeding duodenal diverticulum. Recommendation: - Discharge patient to home. - Resume previous diet. - Continue present medications. - Await pathology results. Procedure Code(s): --- Professional --- 71261, Esophagogastroduodenoscopy, flexible, transoral; with biopsy, single or multiple CPT copyright 2021 [employer]. All rights reserved. The codes documented in this report are preliminary and upon metal furniture panel coverer review may be revised to meet current compliance requirements. Bridger Lanier DO 06/15/2024 7:37:18 AM This report has been signed electronically. Number of Addenda: 0 Note Initiated On: 06/15/2024 7:21 AM
--- NOTE | 2024-06-15 07:37 | PCM.POST.ANE ---
Anesthesia: Postop Eval I Current Vital Signs Temperature: 97.6 F Pulse Rate: 70 Blood Pressure: 88/51 Respiratory Rate: 16 Pulse Ox: 95 Oxygen Delivery Method: Room Air Assessment Airway patent: Yes Spontaneous unlabored respirations: Yes Mental status: Asleep nausea: No Vomiting: No Anesthesia Complication: No Fluid Hydration Crystalloid volume administer (ml): 400 Total IV fluid infused: 400 Progress Note Anesthesia document: Postop Eval 1 completed: Yes
--- NOTE | 2024-06-15 07:38 | OP.CCLET_ITS ---
06/15/2024 Sarah Huynh [place] [id number] [address] Re : Upper GI endoscopy procedure for Hallie Guzman Dear Dr. Hunyh This procedure was performed on Saturday, June 15, 2024. My impressions and recommendations are as follows: Impressions : - Normal esophagus. - Medium-sized hiatal hernia. - Gastric stenosis was found at the pylorus. Biopsied. - Erythematous mucosa in the gastric body. Biopsied. - Non-bleeding duodenal diverticulum. Recommendations : - Discharge patient to home. - Resume previous diet. - Continue present medications. - Await pathology results. My findings are described in the full procedure note, which is enclosed. If I can be of further assistance, please feel free to contact me at . Sincerely, Bridger Lanier, 06/15/2024 7:37:18 AM This report has been signed electronically.
--- NOTE | 2024-06-15 07:59 | PCM.POSTANE2 ---
Anesthesia Postop Eval I Sum Postop Eval Completion status Anesthesia document: Postop Eval 1 completed: Yes Anesthesia Postop Eval I Summary Anesthesia Postop Eval I Summary: Anesthesia Postop Eval I: Assessment Summary Airway patent Yes 06/15/24 07:38 [email or web address] Spontaneous unlabored Yes 06/15/24 07:38 [email or web address] respirations Mental status Asleep 06/15/24 07:38 [email or web address] nausea No 06/15/24 07:38 [email or web address] Vomiting No 06/15/24 07:38 [email or web address] Anesthesia Postop Eval I: Fluid Summary Crystalloid volume administer 400 06/15/24 07:38 [email or web address] (ml) Colloids volume administered ( ml) Blood Product volume administered (ml) Total IV fluid infused 400 06/15/24 07:38 [email or web address] Anesthesia Postop Eval I: Summary Notes Anesthesia Complication No 06/15/24 07:38 [email or web address] Anesthesia Complication Comment: Post-operative progress note Anesthesia: Postop Eval II Evaluation Mental status: Awake Pain Level: 0 nausea: No Vomiting: No
== END 2024-06-15 08:45 | disposition home or self-care (01) ==
LOC: EN 05:50 → AC 05:51
PROVIDERS: PCP Family Medicine; Referring Provider Family Medicine; Visit Provider Internal Medicine Gastroenterology
PROC: 0DJ08ZZ Inspection of Upper Intestinal Tract, Via Natural or Artificial Opening Endoscopic (ICD-10-PCS; CPT 43235; principal; 2024-06-15 06:55)
DX: K29.70 Gastritis, unspecified, without bleeding (principal); K44.9 Diaphragmatic hernia without obstruction or gangrene; K21.9 Gastro-esophageal reflux disease without esophagitis; K57.10 Diverticulosis of small intestine without perforation or abscess without bleeding; K31.1 Adult hypertrophic pyloric stenosis; K31.89 Other diseases of stomach and duodenum; Z79.82 Long term (current) use of aspirin; Z79.890 Hormone replacement therapy; Z79.899 Other long term (current) drug therapy; I25.10 Atherosclerotic heart disease of native coronary artery without angina pectoris; I10 Essential (primary) hypertension; E78.5 Hyperlipidemia, unspecified; E07.9 Disorder of thyroid, unspecified
CPT/HCPCS: 43239; 88305; 88342; J7120; J2405

== ENCOUNTER → 2024-10-23 | Outpatient (CLI) | payer MEDICARE, OTHER, SELFPAY ==
[2024-10-23 11:15] LABS: Absolute Lymphocyte Count 1.11 X10^3/uL (0.83-4.51); Absolute Neutrophil Count 3.6 X10^3/uL (2.0-7.7); Basophil# 0.02 X10^3/uL; Basophil% 0.4 % (0-1); Eosinophil# 0.19 X10^3/uL; Eosinophils% 3.4 % (0-5); Hemoglobin 15.6 g/dL (12.0-15.0); Lymphocyte # 1.11 X10^3/ul (0.83-4.51); Lymphocyte % 20.1 % (19-41); Mean Corp Hgb Conc 33.2 g/dL (32-36); Mean Corpuscular Hgb 30.4 pg (27.0-32.0); Mean Corpuscular Volume 91.4 fL (81-99); Mean Platelet Vol. 11.6 fl (6.2-12.0); Monocyte# 0.58 X10^3/uL; Monocyte% 10.5 % (0-10); NRBC Flagged by Analyzer 0 % (0-5); Neutrophil # 3.61 X10^3/uL (2.7-7.7); Neutrophil % 65.4 % (47-70); Platelet Count 116 K/mm3 (150-450); RBC Distribution Width CV 12.8 % (11.6-14.6); RBC Distribution Width SD 43.2 fl (35.1-43.9); Red Blood Count 5.14 M/mm3 (4.2-5.4); White Blood Count 5.5 K/mm3 (4.4-11.0)
[2024-10-23 12:13] LABS: ALB/GLOB Ratio 1.2 RATIO (0.9-2.4); AST(SGOT) 10 U/L (15-37); Alanine Aminotransfer ALT/SGPT 23 U/L (13-56); Albumin, Serum 3.6 g/dL (3.2-5.0); Alkaline Phosphatase 98 U/L (45-117); Anion Gap 5 (5-15); BUN 21 mg/dL (7-18); BUN/Creat Ratio 22.8 RATIO (10-20); Calcium,Total 10.3 mg/dL (8.5-10.1); Chloride 110 mmol/L (98-107); Creatinine, Serum 0.92 mg/dL (0.55-1.02); EST Glomerular Filtration Rate 63 mL/min (>60); Est Glom Filt Rate - Afr Amer 77 mL/min (>60); Free T3 2.2 pg/mL (2.18-3.98); Globulin 3.1 g/dL (2.2-4.2); Glucose 111 mg/dL (74-106); Lipase 29 U/L (13-75); Magnesium 2.2 mg/dL (1.6-2.6); Potassium 3.6 mmol/L (3.5-5.1); Protein, Total 6.7 g/dL (6.4-8.2); Sodium Level 142 mmol/L (136-145); T4 Free Direct 1.42 ng/dL (0.76-1.46)
[2024-10-26 11:07] LABS: Vitamin D 1,25-Dihydroxy 55.3 pg/mL (24.8-81.5)
== END | disposition home or self-care (01) ==
LOC: LAB 10:40
PROVIDERS: PCP Family Medicine; Referring Provider Student in an Organized Health Care Education/Training Program; Visit Provider Student in an Organized Health Care Education/Training Program
DX: R10.13 Epigastric pain (principal); R63.4 Abnormal weight loss
CPT/HCPCS: 36415; 80053; 82652; 83690; 83735; 84439; 84443; 84481; 85025

== ENCOUNTER → 2024-12-04 | Outpatient (CLI) | payer MEDICARE, OTHER, SELFPAY ==
[2024-12-04 08:33] LABS: AST(SGOT) 15 U/L (<=31); Alanine Aminotransfer ALT/SGPT 17 U/L (<=34); Albumin, Serum 4.1 g/dL (3.4-4.8); Alkaline Phosphatase 88 U/L (35-104); Bilirubin, Direct 0.15 mg/dL (0.00-0.30); Cholesterol 142 mg/dL (<=200); Globulin 2.2 g/dL (2.2-4.2); High Density Lipoprotein 43 mg/dL; Low Density Lipoprotein Calc. 82 mg/dL; Protein, Total 6.3 g/dL (5.9-8.4); Total Bilirubin 0.29 mg/dL (0.00-1.30); Triglycerides 83 mg/dL; Very Low Density Lipoprotein 17 mg/dL (5-40); cholesterol:hdl ratio screen 3.28
== END | disposition home or self-care (01) ==
LOC: LAB 07:36
PROVIDERS: PCP Family Medicine; Referring Provider Physician Assistant Medical; Visit Provider Physician Assistant Medical
DX: I25.10 Atherosclerotic heart disease of native coronary artery without angina pectoris (principal); E78.5 Hyperlipidemia, unspecified
CPT/HCPCS: 36415; 80061; 80076

== ENCOUNTER → 2024-12-10 | Outpatient (CLI) | payer MEDICARE, OTHER, SELFPAY | END | disposition home or self-care (01) | LOC: BFHLAB 13:42 | PROVIDERS: PCP Family Medicine; Visit Provider Family Medicine | DX: R82.90 Unspecified abnormal findings in urine (principal) | CPT/HCPCS: 87086; 87088 ==

== ENCOUNTER → 2025-02-26 | Outpatient (CLI) | payer MEDICARE, OTHER, SELFPAY ==
--- NOTE | 2025-02-26 10:15 | BI_ITS ---
EXAM: SCRN MAMM (CAD)W/JOSH BILAT DATE: 02/26/2025 CLINICAL HISTORY: F, Age 74 y/o , SCREENING FOR BREAST CANCER No family history. BREAST CANCER RISK ASSESSMENT: Not assessed. TECHNIQUE: Bilateral screening digital breast tomosynthesis with 2D and 3D images. Computer aided detection. COMPARISON: Prior exam(s) dated February 25, 2024.. FINDINGS: TISSUE DENSITY: The breast tissue is heterogenously dense, which may obscure small masses. Bilateral Breast Mammographic Findings: No significant masses, calcifications or other abnormalities are identified. No suspicious masses, areas of developing architectural distortion, or suspicious calcifications. There has been no significant interval change. BI/SCRN MAMM (CAD)W/JOSH BILAT IMPRESSION: OVERALL FINAL ASSESSMENT: BIRADS 1 NEGATIVE RECOMMENDATION: Routine annual follow-up in 1 Year A letter with findings and recommendations will be mailed to the patient. Reading Location: [place] [id number]
== END | disposition home or self-care (01) ==
LOC: OPBI 10:01
PROVIDERS: PCP Family Medicine; Referring Provider Nurse Practitioner Women's Health; Visit Provider Nurse Practitioner Women's Health
DX: Z12.31 Encounter for screening mammogram for malignant neoplasm of breast (principal)
CPT/HCPCS: 77063; 77067

== ENCOUNTER → 2025-04-05 | Outpatient (CLI) | payer MEDICARE, OTHER, SELFPAY | END | disposition home or self-care (01) | LOC: CVS 10:52 | PROVIDERS: PCP Family Medicine; Referring Provider Surgery Vascular Surgery; Visit Provider Surgery Vascular Surgery | DX: I73.9 Peripheral vascular disease, unspecified (principal); I77.1 Stricture of artery | CPT/HCPCS: 93922 ==

== ENCOUNTER → 2025-06-11 | Outpatient (CLI) | payer MEDICARE, OTHER, SELFPAY ==
--- NOTE | 2025-06-11 09:45 | US_ITS ---
PROCEDURE: ABD LIMITED W/ ELASTOGRAPHY REASON FOR EXAM: FATTY LIVER COMPARISON: Prior study dated March 05, 2023. TECHNIQUE: Procedure Code: [id number] Modality: US Procedure: ABD LIMITED W/ ELASTOGRAPHY Right upper quadrant abdominal ultrasound. Ace ElastQ Imaging shear wave elastography for non-invasive assessment of liver tissue stiffness. Ace EPIQ Elite. FINDINGS: LIVER: Size: Unremarkable Length: 16.1 cm Echotexture: Normal Contour: Normal Lesions: None identified Elastography: EQI Med: 3.4 kPa EQI Med Asa: 1.1 m/s IQR/Med: 10.8 %* GALLBLADDER: Surgically absent. COMMON BILE DUCT: Normal measuring 4 mm . PANCREAS: Normal Visualized portions of the right kidney are unremarkable. No right upper quadrant ascites. US/ABD Limited w/ Elastography IMPRESSION: No significant hepatic fibrosis. Status post cholecystectomy. Reference Values: SRU <1.37 m/s (5.7kPa): No to mild fibrosis 1.37 m/s - 2.2 m/s: Moderate to severe fibrosis >2.2 m/s (15kPa): Significant fibrosis / cirrhosis METAVIR Score F2 or higher: 1.34 m/s (5.7kPa) F3 or higher: 1.55 m/s (7.3kPa) F4: 1.80 m/s (10kPa) * If the IQR/Med is >30%, the variance in the measurements is a large and the a ccuracy of the measurement may be in question. Reading Location: [facility]
== END | disposition home or self-care (01) ==
LOC: US 09:42
PROVIDERS: PCP Family Medicine; Referring Provider Student in an Organized Health Care Education/Training Program; Visit Provider Student in an Organized Health Care Education/Training Program
DX: K76.0 Fatty (change of) liver, not elsewhere classified (principal)
CPT/HCPCS: 76705; 76981

== ENCOUNTER 2025-06-17 05:21 | Day surgery (SDC) | payer MEDICARE, OTHER, SELFPAY ==
--- NOTE | 2025-06-14 12:23 | PAT.ANESEVAL ---
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 When Was Last Pacemaker Check QUESTION #4 FULL TEXT: You/Your Family Experience fever (hyperthermia) with Anesthesia Last Oral Intake Last Oral intake: Last Oral Intake NPO since Meds taken in AM with sips of water? 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 Female Yes 06/14/25 10:44 HX of Motion Sickness No 06/14/25 10:44 HX of N/V After Surgery Yes 06/14/25 10:44 Non-Smoker Yes 06/14/25 10:44 Duration of Surgery greater No 06/14/25 10:44 than 60 minutes Number of Risk Factors 3 06/14/25 10:44 PONV Score Moderate Risk 06/14/25 10:44 Height & Weight Height & Weight: Anesthesia: Height & Weight Height 5 ft 4 in 12/08/24 07:48 Respiratory Assessment Respiratory Assessment - marine tower operator: Respiratory Tract Infection Hx - marine tower operator Hx Respiratory Tract Infection No 06/14/25 10:44 STOP Sleep Apnea STOP Sleep Apnea - marine tower operator: STOP Sleep Apnea - marine tower operator Hx Hypertension No 06/14/25 10:44 Hx Sleep Apnea No 06/14/25 10:44 CPAP BIPAP Do you snore loudly (louder No 06/14/25 10:44 than talking or can be heard Do you often feel tired/ No 06/14/25 10:44 fatigued/ sleepy during daytime? Has anyone observed you stop No 06/14/25 10:44 breathing during sleep? STOP Results Negative 06/14/25 10:44 QUESTION #5 FULL TEXT : Do you snore loudly (louder than talking or can be heard through closed doors)? 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 Specify any problems Hx of Preganancy in last 3 No 06/14/25 10:44 Months Nurse Filling Out Transfusion [facility] 06/14/25 10:44 & Questions: Date: 06/14/25 06/14/25 10:44 Time: 10:50 06/14/25 10:44 Patient unable to answer at this time (ie. 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: /Reproductive Hx- marine tower operator Hx Now Gestational Age (in weeks): EDC: Hx Hx Para Hx Section SAB No 06/11/24 09:40 PFSH Medical History History of steroid therapy High cholesterol Acute otitis externa of right ear URI (upper respiratory infection) Wears glasses Post-menopausal Thyroid disease Low platelet count History of hiatal hernia Gastric reflux Non-smoker History of echocardiogram History of stress test Cardiology follow-up encounter History of irregular heartbeat Neuropathy Essential tremor RLS (restless legs syndrome) Hypothyroidism Essential hypertension Fatty liver COVID-19 UTI (urinary tract infection) Trochanteric bursitis of right hip Thrombocytopenia IBS (irritable bowel syndrome) GERD (gastroesophageal reflux disease) Esophagitis Diverticulosis Cyst of left kidney Home Medications ?Medication ?Instructions ?Recorded ?Last Taken ?Type albuterol sulfate 90 mcg/actuation 2 puff inhalation Q4H PRN Sob &/Or 10/11/17 06/14/24 History aerosol inhaler Wheezing cholecalciferol (vitamin D3) 50 4,000 unit PO QDAY 10/11/17 06/14/24 History mcg (2,000 unit) capsule levothyroxine 50 mcg tablet 88 mcg PO DAILY 06/06/18 06/15/24 History pantoprazole 40 mg tablet,delayed 40 mg PO DAILY PRN GERD 03/17/24 06/14/24 History release rosuvastatin 20 mg tablet 40 mg PO QHS 05/15/24 06/14/24 History estradiol 0.01% (0.1 mg/gram) 1 appful vaginal PRN 06/11/24 Unknown History vaginal cream ipratropium bromide 21 mcg (0.03 2 spray intranasal BID-TID PRN 12/17/24 Unknown Rx %) nasal spray postnasal drainage #30 mL ondansetron 4 mg disintegrating 4 mg PO Q8H #14 tabs 04/13/25 Unknown Rx tablet Allergy/AdvReac Type Severity Reaction Status Date / Time Sulfa (Sulfonamide Allergy Intermediate Other Verified 06/14/25 10:41 Antibiotics) atorvastatin (From Lipitor) Allergy Mild itching Verified 06/14/25 10:41 adhesive tape AdvReac Rash Verified 06/14/25 10:41 Family History Father Heart disease Mother Heart disease Hypertension Thyroid disorder CVA (cerebral vascular accident) Brother Heart disease Brother Heart disease Other IBS (irritable bowel syndrome) Surgical History S/P hysterectomy S/P cholecystectomy S/P hernia repair (~01/14/19) S/P appendectomy S/P colectomy Social History Smoking Status: Never smoker alcohol intake: current alcohol intake frequency: holidays/special occasions only substance use type: does not use caffeine: Yes what type of physical activity do you participate in: walking seatbelt use: always do you feel safe at home: Yes additional social history: - Luis Patient and are both retired Audit: Pertinent Findings Pertinent Findings EKG Perinent findings: 04/10/2023. Sinus rhythm. Poor R wave progression. Consider old anterior infarct. Echo (EF%) pertinent findings: 04/18/2023. EF 60%. Normal valves. Consult pertinent findings: Cardiology 12/08/2024. Hypertension. Continue current medical therapy. Elevated coronary artery calcium score. Stress test negative. Risk factor modification. Recommendation Anesthesia Recommendation Anesthesia recommendation: OPTIMIZED for anesthesia
[2025-06-17] VITALS (8 sets, daily range): BP systolic 88–132; BP diastolic 52–69; PULSE 61–68; RESP 16–18; TEMP 36.1–36.6; O2SAT 96–98; BMI 25.7
--- OUTSIDE RECORDS SUMMARY | 2025-06-17 05:24 | XMS RPT_ITS | CCD ---
Author Organization [facility] Care Team Providers Care Emr Implementation Specialist Name Role Phone Loree Morgan Unavailable Unavailable CebulNahed Unavailable Unavailable CathyLoree Unavailable Unavailable Loree Morgan Unavailable Unavailable Loree Morgan Unavailable Unavailable CebulNahed Unavailable Unavailable RUMPLERERICKA Unavailable Unavailable Cebul, Nahed Fairchild Unavailable Unavailable RUMPLER, ERICKA A Unavailable Unavailable Cebul, Nahed Fairchild Unavailable Unavailable Rowan Macdonald Unavailable Unavailable Javier SALCIDO, Ashlyn Jama Unavailable Cebul, Nahed Bradshaw Unavailable Unavailable Unavailable Genevieve Graham MD Primary Care Provider Timothy Isaac PA-C Unavailable Dr. Genevieve Graham Primary Care Provider Dr. Genevieve Graham Referring Provider ERIC Monzon Attending Provider Dr. Genevieve Graham Primary Care Provider Dr. Genevieve Graham Referring Provider STEVE Roberto NP Attending Provider Dr. Genevieve Graham Primary Care Provider Dr. Genevieve Graham Referring Provider Friend, Dr. Sparks Attending Provider Genevieve Graham MD Primary Care Provider Dr. Genevieve Graham Primary Care Provider Dr. Genevieve Graham Referring Provider Dr. Bridger Lanier Attending Provider Drea BUDGET SPECIALIST, BUDGET SPECIALIST-C Pearl Rg Attending Provider Dr. Ash Roberts Primary Care Provider Genevieve Graham MD Primary Care Provider Unavailable Primary Care Provider UnavailDr. Ash Ramírez Primary Care Provider Dr. Ash Gutiérrez Attending Provider Dr. Ash Roberts Referring Provider ERIC Law Attending Provider Drea BUDGET SPECIALIST, BUDGET SPECIALIST-C Pearl Rg Attending Provider Geovany MOSCOSO MD, Frank A Primary Care Provider Annie vailaDr. Ash Gray Primary Care Provider Dr. Joel Islas Attending Provider DO Cash Arias Primary Care Provider DO Cash Arias Referring Provider Dr. Joel Islas Referring Provider James BUDGET SPECIALIST, BUDGET SPECIALIST-C Keiry Attending Provider MAN, SHUMEI Attending Unavailable GENEVIEVE GRAHAM Primary Care Unavailable GENEVIEVE GRAHAM Primary Care Unavailable MAN, SHUMEI Referring Unavailable NAHED FAUST III Primary Care Unavailable MAN, SHUMEI Attending Unavailable DO Cash Arias Primary Care Provider DO aCsh Arias Referring Provider ERIC Law Attending Provider Dr. Sarah Huynh Primary Care Provider Dr. Sarah Huynh Referring Provider Dr. Juan Faust Attending Provider STEVE Huang Attending Provider Friend, Dr. Sparks Attending Provider Dr. Sarah Huynh Primary Care Provider Dr. Sarah Huynh Referring Provider Dr. Juan Faust Attending Provider STEVE Huang Attending Provider Friend, Dr. Sparks Attending Provider ERIC Poole Attending Provider Cash Arias DO Primary Care Provider Cash Arias DO Primary Care Provider Genevieve Graham MD Primary Care Provider Geovany MOSCOSO MD, Nahed Bradshaw Primary Care Provider Annie vailable Cash Arias DO Primary Care Provider MICHELINE, VIVIANA Referring Unavailable CASH ARIAS Primary Care Unavailabl e HUGO, CASH VICKY Primary Care Unavailabl e CASH LAMA Referring Unavailable DAINA, CASH Attending Unavailable HUGO, CASH PERRY Primary Care Unavailabl e Lino BONE, Dr. Smith Primary Care Provider Dr. Sarah Huynh MD Referring Provider Gus Hernandez Attending Provider Estefany Spears Attending Provider Estefany Spears Referring Provider Jazzy Poole Attending Provider Jazzy Poole Referring Provider Dr. Sarah Huynh MD Attending Provider [phone] Ramone Law Attending Provider Dr. Sarah Huynh MD Primary Care Provider Lino BONE, Dr. Smith Referring Provider Felisa BUDGET SPECIALIST-CJuany Attending Provider Felisa BUDGET SPECIALIST-C, Juany Referring Provider Lino BONE, Cresco Primary Care Provider Lino BONE, Dr. Smith Referring Provider Kimi BONE, Dr. Tony Bradshaw Attending Provider Kimi BONE, Dr. Tony Bradshaw Referring Provider Lino BONE, Dr. Smith Primary Care Provider Estefany Spears Attending Provider Miedel, Sarah Attending Unavailable Miedel, Sarah Primary Care Unavailable Felisa BUDGET SPECIALISTJuany Attending Unavailable Felisa BUDGET SPECIALISTJuany Referring Unavailable Miedel, Sarah Primary Care Unavailable Tony Bolden Attending Unavailable Tony Bolden Referring Unavailable Miedel, Sarah Primary Care Unavailable Miedel, Sarah Primary Care Unavailable Estefany Huerta Attending Unavailable Estefany Huerta Referring Unavailable Miedel, Sarah Primary Care Unavailable Bridger Lanier Attending Unavailable Miedel, Sarah Referring Unavailable Estefany Huerta Attending Unavailable Miedel, Sarah Referring Unavailable Miedel, Sarah Primary Care Unavailable Miedel, Sarah Primary Care Unavailable Jazzy Poole Attending Unavail able Miedel, Sarah Referring Unavailable Ramone Law Attending Unavailable Miedel, Sarah Referring Unavailable Miedel, Sarah Primary Care Unavailable Estefany Huerta Attending Unavailable Miedel, Sarah Referring Unavailable Miedel, Sarah Primary Care Unavailable Jennifer Huang Attending Unavailable Miedel, Sarah Referring Unavailable Miedel, Sarah Primary Care Unavailable Gus Hernandez Attending Unavailable Miedel, Sarah Referring Unavailable Miedel, Sarah Primary Care Unavailable Estefany Huerta Attending Unavailable Estefany Huerta Referring Unavailable Miedel, Sarah Primary Care Unavailable Jazzy Poole Referring Unavail able Jazzy Poole Attending Unavail able Sarah Huynh Primary Care Unavailable Allergies Allergy Classification Reported Allergen(s) Allergy Type Date of Onset Reaction(s) Facility (20 sources) atorvastatin; Translations: [ATORVASTATIN CALCIUM] Drug Allergy 12-18-19 07 Myalgia [facility] (20 sources) Sulfamethoxazole; Translations: [SULFAMETHOXAZOLE ] Drug Allergy 11-01-19 Other: See Comments [facility] Work Phone: (1 source) House dust mite; Translations: [DUST MITES] allergy to substance 03-24-20 [facility] Work Phone: (1 source) Latex; Translations: [LATEX] allergy to substance 03-24-20 [facility] Work Phone: (1 source) Mold Extract; Translations: [MOLD] Drug Allergy 03-24-20 [facility] Work Phone: (1 source) Seasonal allergy; Translations: [SEASONAL] allergy to substance 01-12-20 22 [facility] Work Phone: (1 source) Sulfacetamide Drug Allergy 03-24-20 [facility] Work Phone: (3 sources) Surgical adhesive tape; Translations: [SURGICAL TAPE] allergy to substance 10-23-19 Rash [facility] Work Phone: (1 source) PLANT POLLENS; Translations: [PLANT POLLENS] allergy to substance 03-24-20 21 hay fever [facility] Work Phone: (20 sources) atorvastatin Drug Allergy 10-23-19 22 itching [facility] (20 sources) Sulfonamides (Antibiotic); Translations: [Sulfa (Sulfonamide Antibiotics)] Allergy to substance 10-23-19 Other [facility] (20 sources) Adhesive Tape; Translations: [adhesive tape] Propensity to adverse reactions 04-18-20 22 Rash [facility] Comment on above: SURGICAL TAPE (1 source) atorvastatin Drug Allergy 06-14-20 25 [facility] Repository Medications Current Medications Medication Drug Class(es) Dates Sig (Normalized) Sig (Original) acetaminophen 500 mg oral tablet (20 sources) take 1 tablet by mouth every eight hours as needed acetaminophen (TYLENOL) 500 mg tablet Take 500 mg by mouth every 8 hours as needed. Active Comment on above: Take 500 mg by mouth every 8 hours as needed. [id number] 200 actuat albuterol 0.09 mg/actuat metered dose inhaler (20 sources) beta2-Adrenergic Agonist Start: 10-31-2018 End: 07-17-2022 albuterol HFA (PROAIR HFA) 90 mcg/actuation inhaler Inhale 2 Puffs as instructed every 4 hours as needed. Disp 1 inhaler with 11 refills 1 Each 07/17/2022 Active Start: 10-11-2017 Albuterol Sulf ate 90 mcg/actuation HFA aerosol inhaler Active 2 NMA INHALATION Q4H as needed for Sob &/Or Wheezing October 11, 2017 1:00am Start: 10-11-2017 take 1 puff(s) by in halation every four hours Albuterol Sulfate Active 2 PUFF INHALATION Q4H October 11, 2017 1:00am Start: 08-08-2013 End: 09-21-2022 albuterol 5 mg/mL nebu Indic ations: Bronchitis , Cough Inhale 0.5 mL as instructed every 4 hours as needed for 7 days. 1 DOSE NOW - BACK OFFICE. PLACE 0.5 ML PER DROPPER AND 2.5 ML OF NORMAL SALINE INTO RESERVOIR. 1 mL 0 08/08/2013 01/30/2022 Discontinued Comment on above: Inhale 0.5 mL as ins tructed every 4 hours as needed for 7 days. 1 DOSE NOW - BACK OFFICE. PLACE 0.5 ML PER DROPPER AND 2.5 ML OF NORMAL SALINE INTO RESERVOIR. Inhale 2 Puffs as in structed every 4 hours as needed. Disp 1 inhaler with 11 refills azithromycin 250 mg oral tablet (4 sources) Macrolide Antimicrobial Start: 025 take 2-5 tablets by mouth once daily Azithromycin 250 mg tablet Active 0 PO .COMPLEX 6 0 December 17, 2024 12:00am take 500 mg today (day 1), then 250 mg for 4 days (days 2-5) PO cholecalciferol 0.1 mg oral capsule (20 sources) Vitamin D Start: 021 take 2 tablets by mouth once daily VITAMIN D3 50 MCG (2000 UT) TABS 2 tablet by mouth once a day cholecalciferol (vitamin d3) [id number] Vicki Finley AT Start: 02-06-2021 End: 06-09-2021 take 1 capsule by mouth once daily cholecalciferol, vitamin D3, (VITAMIN D3) 100 mcg (4,000 unit) cap Take 1 capsule by mouth once daily. 90 capsule 3 06/09/2021 Active Start: 01-28-2018 take 3 capsules by m outh once daily Vitamin D3 25 MCG (1000 UT) Oral Capsule 3 capsules by mouth daily Quantity: 0 Refills: 0 Ordered: 28-Jan-2018 Ericka Christian Start : 28-Jan-2018 Active Start: 10-11-2017 take 2 capsules by m outh once daily Cholecalciferol (Vitamin D3) 2,000 unit capsule Active 4000 U PO daily October 11, 2017 1:00am Start: 10-11-2017 take 4000 [IU] by [facility] once daily Cholecalciferol (Vitamin D3) Active 4000 UNIT PO daily October 11, 2017 1:00am Comment on above: Take [address] [facility] once daily. cyclobenzaprine hydrochloride 10 mg oral tablet (1 source) Muscle Relaxant Start: 01-11-20 End: 01-17-20 take 1 tablet by mouth every twelve hours as needed cyclobenzaprine (FLEXERIL) 10 mg tablet Take 1 tablet by mouth twice daily as needed for muscle spasm for up to 6 days. 12 tablet 0 01/10/2022 01/16/2022 Active Comment on above: Take 1 tablet by [facility] twice daily as needed for muscle spasm for up to 6 days. doxycycline monohydrate 100 mg oral tablet (1 source) Tetracycline-cla ss Drug Start: 12-20-19 End: 12-25-19 take 1 tablet by mouth twice daily doxycycline monohydrate 100 mg tablet Take 1 tablet by mouth two times a day for 5 days. 10 tablet 12/19/2024 12/24/2024 Active estradiol 0.1 mg/ml vaginal cream (20 sources) Estrogen Start: 06-11-20 Estradiol 0.01 % (0.1 mg/gram) cream Active 1 NMA VAGINAL NEEDED June 11, 2024 12:00am Start: 03-18-2022 End: 06-11-2024 Estradiol 0.01 % (0.1 mg/gra m) cream Discontinued 0 VAGINAL .COMPLEX 42.5 2 April 24, 2023 11:51am June 11, 2024 9:34am small amount as directed vaginal twice a week; Start: 03-18-2022 End: 04-24-2023 Estradiol Active 0 VAGINAL . COMPLEX 42.5 April 24, 2023 11:51am small amount as directed vaginal twice a week; Start: 02-13-2016 estradiol (EST RACE) 0.01 % (0.1 mg/gram) vaginal cream Indications: Postmenopausal atrophic vaginitis Use small amount at vaginal opening 3 nights a week for 4 weeks 1 Tube 2 02/13/2016 Active Comment on above: Use small amount at vaginal opening 3 nights a week for 4 weeks ibuprofen 600 mg oral tablet (1 source) Nonsteroidal Anti-inflammatory Drug Start: 2 End: 2 take 1 tablet by mouth every six hours as needed ibuprofen (MOTRIN) 600 mg tablet Take 1 tablet by mouth every 6 hours as needed for pain for up to 7 days. 28 tablet 0 01/10/2022 01/17/2022 Active Comment on above: Take 1 tablet by [facility] every 6 hours as needed for pain for up to 7 days. Ipratropium Hubbard 21 mcg (0.03 %) spray,non-aerosol (4 sources) Start: Ipratropium Hubbard 21 mcg (0.03 %) spray,non-aerosol Active 2 NMA INTRANASAL 2 to 3 times per day as needed for postnasal drainage 30 December 17, 2024 12:00am administer into each nostril Start: 12-17-2024 Ipratropium Br omide 21 mcg (0.03 %) spray,non-aerosol Active 2 NMA INTRANASAL 2 to 3 times per day as needed for postnasal drainage December 17, 2024 12:00am administer into each nostril levothyroxine sodium 0.088 mg oral tablet (20 sources) l-Thyroxine Start: 07-08-2020 End: 07-26-2021 take 1 tablet by mouth once daily for thyroid dysfunction levothyroxine (LEVOXYL) 88 mcg tablet Indications: Hypothyroidism, unspecified type Take 1 tablet by mouth once daily. Take on empty stomach. For Thyroid 90 tablet 3 07/26/2021 Active Start: 06-23-2018 Levothyroxine Sodium 75 MCG Oral Tablet Quantity: 30 Refills: 0 Ordered: 23-Jun-2018 DO Start : 23-Jun-2018 Active Start: 06-06-2018 Levothyroxine 50 mcg tablet Active 88 ug PO DAILY June 06, 2018 10:07am Start: 06-06-2018 take 88 ug by mouth once daily Levothyroxine Active 88 MCG PO DAILY June 06, 2018 10:07am Start: 08-12-2016 End: 06-06-2018 take 1 tablet by mouth once daily Levothyroxine 50 MCG tablet Discontinued 50 ug PO DAILY August 12, 2016 1:00am June 06, 2018 10:07am Comment on above: Take 1 tablet by barbara [facility] once daily. Take on empty stomach. For Thyroid loratadine 10 mg oral tablet (20 sources) Start: take 1 tablet by mouth once daily loratadine (CLARITIN) 10 mg tablet Indications: Viral URI with cough Take 1 tablet by mouth once daily. 30 tablet 11 10/20/2020 Active Comment on above: Take 1 tablet by barbara [facility] once daily. ondansetron 4 mg disintegrating oral tablet (20 sources) Serotonin-3 Receptor Antagonist Start: take 1 tablet by mouth every eight hours Ondansetron 4 mg tablet,disintegrati ng Active 4 mg PO Q8H 14 April 13, 2025 12:00am Start: 04-10-2021 End: 04-19-2022 take 1 tablet by mouth every eight hours as needed for nausea and nausea and nausea and nausea ondansetron orally disintegrating (ZOFRAN ODT) 4 mg disintegrating tablet Indications: Nausea , Chronic nausea Take 1 tablet by mouth every 8 hours as needed for nausea/vomiting. 10 tablet 1 04/19/2022 Active Comment on above: Take 1 tablet by barbara [facility] every 8 hours as needed for nausea/vomiting. pantoprazole 40 mg delayed release oral tablet (20 sources) Proton Pump Inhibitor Start: 2023 take 1 tablet by mouth once daily as needed for gastroesophageal reflux disease Pantoprazole 40 mg tablet,delayed release (DR/EC) Active 40 mg PO DAILY as needed for GERD March 17, 2024 12:00am Start: 12-10-2018 End: 09-10-2022 take 1 tablet by mouth once daily Pantoprazole 40 MG tablet Discontinued 40 mg PO DAILY December 10, 2018 12:00am September 10, 2022 11:22am Start: 10-16-2017 Pantoprazole S odium 40 MG Oral Tablet Delayed Release Quantity: 30 Refills: 0 Ordered: 16-Oct-2017 DO Start : 16-Oct-2017 Active Comment on above: Take 1 tablet by barbara [facility] once daily. rosuvastatin calcium 20 mg oral tablet (10 sources) HMG-CoA Reductase Inhibitor Start: take 2 tablets by mouth at bedtime Rosuvastatin 20 mg tablet Active 40 mg PO AT BEDTIME May 15, 2024 9:59am Start: 04-16-2024 End: 05-15-2024 take 1 tablet by mouth at bedtime Rosuvastatin 20 mg tablet Discontinued 20 mg PO AT BEDTIME 30 11 April 16, 2024 12:00am May 15, 2024 10:00am Completed/Discontinued Medications Medication Drug Class(es) Dates Sig (Normalized) Sig (Original) acetaminophen 325 mg / HYDROcodone bitartrate 5 mg oral tablet (20 sources) Opioid Agonist Start: 09-23-2017 End: 10-11-2017 Hydrocodone-Acetami nophen 1 TABLET tablet Discontinued 1 - 2 {tbl} PO EVERY 4 HOURS NEEDED as needed for Pain 7 0 September 23, 2017 1:00am October 11, 2017 10:51am Start: 09-23-2017 End: 10-11-2017 take 1 tablet by mouth every four hours as needed Hydrocodone-Acetaminophen Discontinued 1 - 2 TABLET PO EVERY 4 HOURS NEEDED September 23, 2017 1:00am October 11, 2017 10:51am acetaminophen 325 mg / oxyCODONE hydrochloride 5 mg oral tablet (20 sources) Opioid Agonist Start: 01-15-2019 End: 01-22-2019 Oxycodone-Acetaminophen 1 TABLET tablet Discontinued 1 {tbl} PO EVERY 6 HOURS NEEDED as needed for Pain 16 7 0 January 15, 2019 12:00am January 21, 2019 12:00am January 22, 2019 12:09am Incisional hernia Incisional hernia without obstruction or gangrene Start: 01-15-2019 End: 01-22-2019 take 1 tablet by mouth every six hours as needed Oxycodone-Acetaminophen Discontinued 1 TABLET PO EVERY 6 HOURS NEEDED 16 7 January 15, 2019 12:00am January 22, 2019 12:09am amoxicillin 500 mg / clavulanate 125 mg oral tablet (7 sources) Penicillin-class Antibacterial Start: 10-19-2023 End: 10-24-2023 Amoxicillin-Pot Clavulanate (Augmentin) 500-125 mg tablet Discontinued 1 {tbl} PO TWICE A DAY 10 5 0 October 19, 2023 1:00am October 23, 2023 1:00am October 24, 2023 1:05am aspirin 81 mg delayed release oral tablet (5 sources) Platelet Aggregation Inhibitor, Nonsteroidal Anti-inflammatory Drug Start: 03-17-2024 End: 12-08-2024 take 1 tablet by mouth once daily Aspirin (Adult Aspirin Regimen) 81 mg tablet,delayed release (DR/EC) Discontinued 81 mg PO DAILY 30 0 March 17, 2024 12:00am December 08, 2024 1:51pm benzonatate 100 mg oral capsule (12 sources) Non-narcotic Antitussive Start: 10-19-2023 End: 12-08-2023 take 1 capsule by mouth three times daily as needed Benzonatate 100 mg capsule Discontinued 100 mg PO .tid prn 30 0 October 19, 2023 1:00am December 08, 2023 9:19am Start: 10-23-2021 End: 01-30-2022 take 1 capsule by mouth every eight hours as needed benzonatate (TESSALON PERLES) 100 mg capsule Take 1 capsule by mouth three times daily as needed for cough. 30 capsule 10/23/2021 01/30/2022 Discontinued Comment on above: Take 1 capsule by mo [facility] three times daily as needed for cough. calcium carbonate 500 mg chewable tablet (3 sources) Start: 017 ANTACID 500 MG CHEW once daily CALCIUM CARBONATE ANTACID [id number] Ashlyn Herrera DC chlordiazePOXIDE hydrochloride 5 mg / clidinium bromide 2.5 mg oral capsule (20 sources) Anticholinergic, Benzodiazepine Start: 016 End: take 5 capsules by mouth three times daily Chlordiazepoxide-C lidinium (Librax (With Clidinium)) 5-2.5 mg capsule Discontinued 1 NMA PO THREE TIMES A DAY October 11, 2017 1:00am February 19, 2018 8:41am clindamycin 300 mg oral capsule (1 source) Lincosamide Antibacterial take 1 capsule by mouth four times daily CLINDAMYCIN HCL 300 MG CAPS 1 capsule by mouth four times a day clindamycin hcl [id number] Vicki Zhangr AT dicyclomine hydrochloride 10 mg oral capsule (20 sources) Anticholinergic Start: 017 End: take 2 capsules by mouth three times daily before mealtime Dicyclomine 10 MG capsule Discontinued 20 mg PO THREE TIMES DAILY BEFORE MEALS September 23, 2017 1:00am February 19, 2018 8:41am Start: 09-23-2017 End: 02-19-2018 take 20 mg by mouth three times daily before mealtime Dicyclomine Discontinued 20 MG PO THREE TIMES DAILY BEFORE MEALS September 23, 2017 1:00am February 19, 2018 8:41am esomeprazole 40 mg delayed release oral capsule (14 sources) Proton Pump Inhibitor Start: 09-10-2022 End: 10-30-2022 take 1 capsule by mouth once daily in the morning Esomeprazole Magnesium 40 mg capsule,delayed release(DR/EC) Discontinued 40 mg PO EVERY MORNING 90 September 10, 2022 1:00am October 30, 2022 11:17am ezetimibe 10 mg / simvastatin 40 mg oral tablet (3 sources) HMG-CoA Reductase Inhibitor, Dietary Cholesterol Absorption Inhibitor Start: 07-03-2017 EZETIMIBE-SIMVASTATI N 10-40 MG TABS One daily EZETIMIBE-SIMVASTATI N [id number] Ashlyn Herrera DC fluticasone propionate 0.05 mg/actuat metered dose nasal spray (20 sources) Corticosteroid Start: 12-10-2018 End: 06-11-2024 Fluticasone Propionate 16 GM spray,suspension Discontinued 2 SPR NASAL DAILY as needed for Nasal Congestion December 10, 2018 12:00am June 11, 2024 9:34am Start: 02-01-2018 take 2 spray(s) by [facility] once daily fluticasone (FLONASE) 50 mcg/actuation nasal spray Indications: Fluid level behind tympanic membrane of both ears Use 2 Sprays in each nostril once daily. Rinse mouth after use. 1 Bottle 11 02/01/2018 Active Comment on above: Use 2 Sprays in each nostril once daily. Rinse mouth after use. gabapentin 600 mg oral tablet (20 sources) Anti-epileptic Agent Start: 03-17-2024 End: 10-23-2024 Gabapentin 600 mg tablet Discontinued 300 mg PO AT BEDTIME March 17, 2024 8:46am October 23, 2024 11:19am Start: 04-10-2023 End: 03-17-2024 take 1 tablet by mouth at bedtime Gabapentin 600 mg tablet Discontinued 600 mg PO AT BEDTIME April 10, 2023 12:00am March 17, 2024 8:46am Start: 10-25-2022 End: 09-28-2024 take 1 capsule by mouth once daily at bedtime gabapentin (NEURONTIN) 300 mg capsule Take 1 capsule by mouth daily at bedtime for 180 days. 30 capsule 5 04/01/2024 Active Start: 10-17-2021 End: 04-08-2023 take 1 capsule by mouth twice daily gabapentin (NEURONTIN) 100 mg capsule Indications: Extremity numbness Take 1 capsule by mouth twice daily for 30 days. 60 capsule 5 10/17/2021 01/30/2022 Discontinued Comment on above: Take [address] [facility] twice daily for 30 days. Take 300 mg by mouth every morning. Take [address] [facility] daily at bedtime. Take [address] [facility] daily at bedtime for 90 days. hydrocortisone 10 mg/ml / neomycin 3.5 mg/ml / polymyxin b 39482 unt/ml otic suspension (5 sources) Aminoglycoside Antibacterial, Polymyxin-class Antibacterial, Corticosteroid Start: 2023 End: 2023 Uafyfuun-Ytspdvzxk-Ip 3.5-10,000-1 mg/mL-unit/mL-% drops,suspension Discontinued 4 NMA OTIC THREE TIMES A DAY 10 10 September 09, 2024 1:00am September 18, 2024 1:00am September 19, 2024 1:19am to right ear magnesium citrate 58.2 mg/ml oral solution (1 source) Start: 2020 End: 2020 take 296 mL by mouth once magnesium citrate solution Indications: Acute constipation Take 296 mL by mouth one time only for 1 dose. 296 mL 04/04/2021 04/10/2021 Discontinued meloxicam 15 mg oral tablet (20 sources) Nonsteroidal Anti-inflammatory Drug Start: 2017 End: 2017 take 1 tablet by mouth once daily Meloxicam (Mobic) 15 mg tablet Discontinued 15 mg PO daily October 11, 2017 1:00am February 19, 2018 8:40am methylPREDNISolone 4 mg oral tablet (9 sources) Corticosteroid Start: 2024 End: 2024 take 1 tablet by mouth once Methylprednisolone (Medrol (Amado)) 4 mg tablets,dose pack Discontinued 4 mg PO per package directions 21 6 0 December 17, 2024 12:00am December 22, 2024 12:00am December 23, 2024 12:11am Start: 09-09-2024 End: 12-08-2024 take 1 tablet by mouth once Methylprednisolone (Medrol (Amado)) 4 mg tablets,dose pack Discontinued 0 PO per package directions September 09, 2024 1:00am December 08, 2024 1:51pm PO PER PKG DIR 24 hr metoprolol succinate 25 mg extended release oral tablet (20 sources) beta-Adrenergic Marisa Start: 01-26-2021 End: 04-08-2023 take 1 tablet by mouth once daily metoprolol succinate ER (TOPROL XL) 25 mg 24 hr tablet Indications: Benign essential tremor Take 1 tablet by mouth once daily. 30 tablet 5 01/26/2021 02/16/2022 Discontinued Start: 01-07-2019 End: 09-13-2023 take 1 tablet by mouth once daily as needed Metoprolol Tartrate 25 MG tablet Discontinued 25 mg PO DAILY as needed for fast heart rate January 07, 2019 12:00am September 13, 2023 2:47pm Comment on above: Take 1 tablet by barbara th once daily. nitrofurantoin, macrocrystals 25 mg / nitrofurantoin, monohydrate 75 mg oral capsule (16 sources) Nitrofuran Antibacterial Start: End: take 1 capsule by mouth every twelve hours at mealtime Nitrofurantoin Monohyd/M-Cryst (Macrobid) 100 mg capsule Discontinued 100 mg PO Q12H 14 7 0 April 05, 2024 12:00am April 11, 2024 12:00am April 12, 2024 12:05am must administer with a meal/food Start: 03-12-2023 End: 03-19-2023 take 1 capsule by mouth every twelve hours at mealtime Nitrofurantoin Monohyd/M-Cryst 100 mg capsule Discontinued 1 NMA PO Q12H 14 7 0 March 12, 2023 12:00am March 18, 2023 12:00am March 19, 2023 12:04am administer with a meal/food; swallow whole; do not open, crush, dissolve , or chew polyethylene glycol [id number] mg / potassium chloride 2970 mg / sodium bicarbonate 6740 mg / sodium chloride 5860 mg / sodium sulfate 47493 mg powder for oral solution (20 sources) Osmotic Laxative Start: 10-16-2017 End: 02-19-2018 take 4000 mL by mouth once Peg 3350-Electrolytes 236-22.74-6.74 -5.86 gram recon soln Discontinued 4000 mL PO ONCE 4000 0 October 16, 2017 1:00am February 19, 2018 8:41am until fecal effluent is clear; do not exceed a total volume of 4000 mL Start: 10-16-2017 End: 02-19-2018 take 4000 mL by mouth once Peg 3350-Electrolytes Disco ntinued 4000 ML PO ONCE 4000 October 16, 2017 1:00am February 19, 2018 8:41am until fecal effluent is clear; do not exceed a total volume of 4000 mL pramipexole dihydrochloride 0.25 mg oral tablet (2 sources) Nonergot Dopamine Agonist Start: 01-26-2021 End: 07-26-2021 PRAMIPEXOLE DIHYDROCHLORIDE 0.25 MG TABS 1 tablet by mouth as directed pramipexole [id number] Terena Pate RN predniSONE 10 mg oral tablet (6 sources) Start: 12-08-2023 End: 03-17-2024 Prednisone 10 mg tablet Discontinued 10 mg PO .COMPLEX 30 0 December 08, 2023 1:00am March 17, 2024 8:46am Take 4 pills for 3 days, 3 pills for 3 days, 2 pills for 3 days, take 1 pill for 3 days 24 hr propranolol hydrochloride 60 mg extended release oral capsule (2 sources) beta-Adrenergic Marisa Start: 04-08-2023 take 1 capsule by mouth once daily propranolol ER (INDERAL LA) 60 mg 24 hr capsule Take 1 capsule by mouth once daily. 30 capsule 5 04/08/2023 Active Comment on above: Take 1 capsule by mo [facility] once daily. simvastatin 40 mg oral tablet (20 sources) HMG-CoA Reductase Inhibitor Start: 08-12-2016 End: 04-16-2024 take 1 tablet by mouth at bedtime Simvastatin 40 MG tablet Discontinued 40 mg PO AT BEDTIME August 12, 2016 1:00am April 16, 2024 10:32am Comment on above: Take 1 tablet by barbara th daily at bedtime. TAKE 1 TABLET BY BARBARA TH EVERYDAY AT BEDTIME sucralfate 1000 mg oral tablet (20 sources) Aluminum Complex Start: 06-19-2024 End: 07-03-2024 take 1 tablet by mouth three times daily at bedtime Sucralfate 1 gram tablet Discontinued 1 g PO THREE TIMES A DAY 42 14 0 June 19, 2024 10:10am July 02, 2024 12:00am July 03, 2024 12:07am Acid Reflux with meals and at bedtime Start: 08-14-2021 End: 04-19-2022 take 1 tablet by mouth three times daily sucralfate (CARAFATE) 1 gram tablet Indications: Nausea Take 1 tablet by mouth three times daily. 90 tablet 04/19/2022 Active Start: 12-23-2019 End: 06-19-2024 take 1 tablet by mouth four times daily at bedtime Sucralfate 1 gram tablet Discontinued 1 g PO 4 TIMES DAILY as needed for Acid Reflux December 08, 2020 10:34am June 19, 2024 10:10am with meals and at bedtime Start: 10-22-2017 Sucralfate 1 G M Oral Tablet Quantity: 0 Refills: 0 Ordered: 22-Oct-2017 DO Start : 22-Oct-2017 Active Comment on above: Take 1 tablet by barbara th three times daily. sulfamethoxazole 800 mg / trimethoprim 160 mg oral tablet (20 sources) Dihydrofolate Reductase Inhibitor Antibacterial, Sulfonamide Antimicrobial Start: 10-24-2020 End: 12-08-2020 Sulfamethoxazole-Trime thoprim 1 TABLET tablet Discontinued 1 {tbl} PO TWICE A DAY 6 October 24, 2020 1:00am December 08, 2020 10:34am Start: 10-24-2020 End: 12-08-2020 take 1 tablet by mouth twice daily Sulfamethoxazole-Trimethoprim Discontinu ed 1 TABLET PO TWICE A DAY October 24, 2020 1:00am December 08, 2020 10:34am thioctic acid 200 mg oral tablet (6 sources) Start: 12-24-2022 End: 04-01-2024 take 1 tablet by mouth twice daily Alpha Lipoic Acid 200 mg tab Take 1 tablet by mouth twice daily. 180 tablet 1 12/24/2022 04/01/2024 Discontinued Comment on above: Take 1 tablet by barbara th twice daily. triamcinolone acetonide 1 mg/ml topical cream (20 sources) Corticosteroid Start: 10-11-2017 End: 02-19-2018 Triamcinolone Acetonide 0.1 % cream Discontinued 1 NMA TOPICAL TWICE A DAY October 11, 2017 1:00am February 19, 2018 8:41am ursodiol 250 mg oral tablet (11 sources) Bile Acid Start: 10-30-2022 End: 04-10-2023 take 1 tablet by mouth twice daily Ursodiol 250 mg tablet Discontinued 250 mg PO TWICE A DAY 180 3 October 30, 2022 1:00am April 10, 2023 1:34pm Problems Active Problems Problem Classification Problem Date Documented Da te Episodic/Chronic Acute bronchitis (8 sources) Acute bronchitis; Translations: [Acute bronchitis, unspecified] 12-18-2024 Episodic Asthma (20 sources) Asthmatic bronchitis; Translations: [Unspecified asthma, uncomplicated] 12-11-2018 Chronic Cardiac dysrhythmias (20 sources) Premature atrial contraction; Translations: [Atrial premature depolarization] Onset: 9 12-15-2018 Chronic Coagulation and hemorrhagic disorders (20 sources) Platelet count below reference range; Translations: [Thrombocytopenia, unspecified] Onset: 6 01-31-2017 Chronic Coronary atherosclerosis and other heart disease (11 sources) Coronary atherosclerosis; Translations: [Atherosclerotic heart disease of [place] coronary artery without angina pectoris] Onset: 5 03-17-2024 Chronic Coronary atherosclerosis and other heart disease (1 source) Coronary atherosclerosis and other heart disease Onset: 8 Disorders of lipid metabolism (20 sources) Hyperlipidemia; Translations: [Hyperlipidemia, unspecified] Onset: 6 12-08-2015 Chronic Diverticulosis and diverticulitis (20 sources) Diverticulosis of intestine, part unspecified, without perforation or abscess without bleeding; Translations: [Diverticulitis of large intestine without perforation or abscess without bleeding] Onset: 2 01-31-2017 Chronic E Codes: Natural/environment (7 sources) Insect bite - wound; Translations: [Bitten or stung by nonvenomous insect and other nonvenomous arthropods, initial encounter] 12-08-2023 Episodic Esophageal disorders (20 sources) Gastroesophageal reflux disease; Translations: [Gastro-esophageal reflux disease without esophagitis] Onset: 9 07-03-2017 Chronic Esophageal disorders (20 sources) Esophagitis; Translations: [Esophagitis] 01-14-2019 Episodic Esophageal disorders (1 source) Esophageal disorders Onset: 8 Essential hypertension (20 sources) Benign hypertension; Translations: [Benign essential hypertension] Onset: 5 11-08-2014 Chronic Gastritis and duodenitis (20 sources) Duodenitis; Translations: [Duodenitis without bleeding] 05-10-2019 Episodic Immunizations and screening for infectious disease (18 sources) Antineutrophil cytoplasmic antibody positive; Translations: [Other specified abnormal immunological findings in serum] Onset: 3 Episodic Influenza (1 source) Influenza due to Influenza A virus; Translations: [Influenza due to other identified influenza virus with other respiratory manifestations] 12-19-2024 Episodic Joint disorders and dislocations; trauma-related (1 source) Unspecified internal derangement of left knee; Translations: [Unspecified internal derangement of knee] Onset: 2 01-11-2022 Chronic Menopausal disorders (20 sources) Atrophic vaginitis; Translations: [Postmenopausal atrophic vaginitis] Onset: 4 06-14-2014 Chronic Comment on above: controlled with estr ogen cream Nutritional deficiencies (20 sources) Vitamin D deficiency; Translations: [Vitamin D deficiency, unspecified] Onset: 2 07-10-2012 Chronic Other aftercare (3 sources) Patient encounter status; Translations: [Other specified aftercare] Episodic Other bone disease and musculoskeletal deformities (20 sources) Osteopenia; Translations: [Other specified disorders of bone density and structure, unspecified site] Onset: 5 03-07-2015 Episodic Other connective tissue disease (20 sources) Trochanteric bursitis; Translations: [Trochanteric bursitis, right hip] 01-14-2019 Episodic Other diseases of kidney and ureters (20 sources) Renal mass; Translations: [Other specified disorders of kidney and ureter] Onset: 7 02-14-2017 Chronic Other diseases of kidney and ureters (20 sources) Cyst of kidney; Translations: [Cyst of kidney, acquired] 01-14-2019 Episodic Other diseases of veins and lymphatics (1 source) Other specified disorders of veins; Translations: [Other specified disorders of veins] Onset: 8 Episodic Other diseases of veins and lymphatics (2 sources) Disorder of portal venous system; Translations: [Other specified disorders of circulatory system] Episodic Other ear and sense organ disorders (7 sources) Acute otitis externa; Translations: [Unspecified acute noninfective otitis externa, right ear] 09-09-2024 Episodic Other gastrointestinal disorders (20 sources) Irritable bowel syndrome; Translations: [Irritable bowel syndrome without diarrhea] Onset: 7 07-03-2017 Chronic Other gastrointestinal disorders (10 sources) Irritable bowel syndrome without diarrhea; Translations: [Irritable bowel syndrome] Chronic Other gastrointestinal disorders (18 sources) Constipation; Translations: [Constipation, unspecified] 09-10-2022 Episodic Other gastrointestinal disorders (2 sources) History of gastroesophageal reflux disease; Translations: [Personal history of other diseases of digestive system] Episodic Other gastrointestinal disorders (2 sources) History of esophagitis; Translations: [Personal history of other diseases of digestive system] Episodic Other gastrointestinal disorders (2 sources) History of irritable bowel syndrome; Translations: [Personal history of other diseases of digestive system] Episodic Other gastrointestinal disorders (3 sources) Constipation, unspecified; Translations: [Constipation, unspecified] Episodic Other gastrointestinal disorders (1 source) Acute constipation; Translations: [Constipation, unspecified] 04-04-2021 Episodic Other hematologic conditions (2 sources) History of thrombocytopenia; Translations: [Personal history of diseases of blood and blood-forming organs] Episodic Other hereditary and degenerative nervous system conditions (20 sources) Restless legs; Translations: [Restless legs syndrome] Onset: 9 05-26-2009 Chronic Other hereditary and degenerative nervous system conditions (20 sources) Essential tremor; Translations: [Essential tremor] Onset: 9 05-26-2009 Chronic Other hereditary and degenerative nervous system conditions (1 source) Essential tremor; Translations: [Essential tremor] Onset: 4 Chronic Other hereditary and degenerative nervous system conditions (1 source) Restless legs syndrome; Translations: [RLS (restless legs syndrome)] Onset: 4 Chronic Other liver diseases (15 sources) Steatosis of liver; Translations: [Fatty (change of) liver, not elsewhere classified] 09-10-2022 Chronic Other liver diseases (20 sources) Fatty (change of) liver, not elsewhere classified; Translations: [Other chronic nonalcoholic liver disease] Onset: 5 Chronic Other lower respiratory disease (1 source) Cough; Translations: [Cough] Episodic Other lower respiratory disease (2 sources) Cough; Translations: [Acute cough] 12-19-2024 Episodic Other nervous system disorders (10 sources) Polyneuropathy; Translations: [Polyneuropathy, unspecified] Onset: 3 Chronic Other nervous system disorders (1 source) Polyneuropathy, unspecified; Translations: [Polyneuropathy] Onset: 3 Chronic Other nervous system disorders (5 sources) Chronic postoperative pain; Translations: [Other chronic postprocedural pain] Onset: 8 Resolved: 8 07-23-2018 Chronic Other nervous system disorders (1 source) Numbness of limbs; Translations: [Anesthesia of skin] Episodic Other nutritional; endocrine; and metabolic disorders (20 sources) Overweight in adulthood with body mass index of 25 or more but less than 30; Translations: [Body mass index (BMI) 26.0-26.9, adult] 10-23-2021 Episodic Other nutritional; endocrine; and metabolic disorders (12 sources) H/O: hypothyroidism; Translations: [Personal history of other endocrine, nutritional and metabolic disease] 01-14-2019 Episodic Other nutritional; endocrine; and metabolic disorders (7 sources) Weight decreased; Translations: [Abnormal weight loss] 10-23-2024 Episodic Other upper respiratory disease (20 sources) Seasonal allergy; Translations: [Other seasonal allergic rhinitis] Onset: 6 07-03-2017 Chronic Other upper respiratory disease (1 source) Respiratory tract congestion; Translations: [Nasal congestion] Episodic Other upper respiratory infections (4 sources) Sinusitis; Translations: [Chronic sinusitis, unspecified] 10-19-2023 Chronic Other upper respiratory infections (17 sources) Acute pharyngitis; Translations: [Acute pharyngitis, unspecified] 06-28-2023 Episodic Peripheral and visceral atherosclerosis (1 source) Peripheral vascular disease, unspecified; Translations: [Peripheral vascular disease, unspecified] Onset: 5 Chronic Residual codes; unclassified (20 sources) History of colectomy; Translations: [Acquired absence of other specified parts of digestive tract] 01-14-2019 Episodic Comment on above: 11/11/2017 Spondylosis; intervertebral disc disorders; other back problems (20 sources) Degeneration of lumbar intervertebral disc; Translations: [...] abscess w/o bleeding / K57.32(ICD-10) Onset: 8 Unclassified (1 source) Age more than 65 years; Translations: [Over 65 years old] Unclassified (1 source) Acute cough; Translations: [Acute cough] Onset: 5 Unclassified (1 source) Cough, unspecified; Translations: [Cough, unspecified] Onset: 5 Urinary tract infections (20 sources) Urinary tract infectious disease; Translations: [Urinary tract infection, site not specified] 10-25-2020 Episodic Viral infection (20 sources) Disease caused by 2019-nCoV; Translations: [COVID-19] Episodic Past or Other Problems Problem Classification Problem Date Documented Da te Episodic/Chronic Abdominal hernia (20 sources) Incisional hernia; Translations: [Incisional hernia without obstruction or gangrene] Onset: 07-23-2018 07-23-2018 Episodic Abdominal pain (20 sources) Right lower quadrant pain; Translations: [Abdominal pain, right lower quadrant] Onset: 12-24-2017 02-18-2018 Episodic Deficiency and other anemia (9 sources) Vitamin B12 deficiency anemia due to dietary causes; Translations: [Other dietary vitamin B12 deficiency anemia] Onset: 12-24-2022 Episodic Deficiency and other anemia (1 source) Other dietary vitamin B12 deficiency anemia; Translations: [Other dietary vitamin B12 deficiency anemia] Onset: 12-24-2022 Episodic Genitourinary symptoms and ill-defined conditions (19 sources) Dysuria; Translations: [Dysuria] Onset: 03-27-2016 Resolved: 02-14-2017 03-12-2023 Episodic Nausea and vomiting (20 sources) Nausea; Translations: [Nausea] Onset: 04-11-2021 04-11-2021 Episodic Other and unspecified benign neoplasm (20 sources) Benign neoplasm of colon; Translations: [Benign neoplasm of colon, unspecified] Onset: 04-18-2012 06-01-2014 Episodic Other bone disease and musculoskeletal deformities (6 sources) Segmental and somatic dysfunction; Translations: [Segmental and somatic dysfunction of thoracic region] Onset: 07-03-2017 07-04-2017 Episodic Other connective tissue disease (20 sources) Trochanteric bursitis of right hip; Translations: [Trochanteric bursitis, right hip] Onset: 12-12-2012 12-12-2012 Episodic Other gastrointestinal disorders (20 sources) Chronic constipation; Translations: [Other constipation] Onset: 04-11-2021 04-11-2021 Episodic Other liver diseases (20 sources) Liver mass; Translations: [Hepatomegaly, not elsewhere classified] Onset: 02-18-2018 02-18-2018 Episodic Other nervous system disorders (20 sources) Paresthesia of lower extremity; Translations: [Anesthesia of skin] Onset: 04-11-2021 04-11-2021 Episodic Other nervous system disorders (1 source) Paresthesia of hand ; Translations: [Paresthesia of skin] Onset: 07-17-2021 07-17-2021 Episodic Other non-traumatic joint disorders (20 sources) Pain in right knee; Translations: [Pain in joint, lower leg] Onset: 02-28-2021 02-28-2021 Episodic Other nutritional; endocrine; and metabolic disorders (1 source) Abnormal weight loss; Translations: [Abnormal weight loss] Onset: 10-23-2024 Episodic Other screening for suspected conditions (not mental disorders or infectious disease) (5 sources) Imaging of thorax abnormal; Translations: [Abnormal findings on diagnostic imaging of other specified body structures] Onset: 2015 Resolved: 02-14-2017 02-14-2017 Chronic Other screening for suspected conditions (not mental disorders or infectious disease) (16 sources) CT of abdomen abnormal; Translations: [Nonspecific (abnormal) findings on radiological and other examination of abdominal area, including retroperitoneum] Onset: 03-02-2025 03-17-2024 Episodic Spondylosis; intervertebral disc disorders; other back problems (20 sources) Lumbar radiculopathy; Translations: [Radiculopathy, lumbar region] Onset: 02-29-2020 02-29-2020 Episodic Unclassified (1 source) Encounter for other preprocedural examination; Translations: [Encounter for other preprocedural examination] Onset: 11-01-2017 Unclassified (1 source) Problem Results Test Name Value Interpretation Reference Range Facility MR/PATRon 06-14-2025 MR/PATFELICIA [facility] Medical Records Department [address] [place] [address] PAT - Anesthesia 06/14/25 1223 MR#: [id number] Acct: [id number] Name: HALLIE GUZMAN Rep #: [id number] : 1950 75 From: Trey Ribeiro MD PCP: Dr. Sarah Huynh MD Status:PRE SDC Y Race: C Location: EN Pre-Assessment Diagnosis/Proposed Procedure Planned Operative Procedure(s): COLONOSCOPY Anesthesia History Anesthesia History - human resources administrator: Anesthesia History - human resources administrator Hx Hospitalization No 06/14/25 10:44 Any Problems With Anesthesia Yes: +PONV, HAD TO USE 06/14/25 10:44 PEDIATRIC COLONOSCOPY SCOPE PREVIOUSLY Cholinesterase deficiency No 06/14/25 10:44 You/Your Family Experience No 06/14/25 10:44 fever (hyperthermia) with Relationship Recent Exposure to Contagious No 06/15/24 06:21 Disease Does patient have nerve No 06/14/25 10:44 stimulator Patient instructed to have device shut off --Does patient have Pacemaker or ICD? When Was Last Pacemaker Check QUESTION #4 FULL TEXT: You/Your Family Experience fever (hyperthermia) with Anesthesia Last Oral Intake Last Oral intake: Last Oral Intake NPO since Meds taken in AM with sips of water? Meds patient instructed to take am of surgery PONV PONV - human resources administrator: PONV - human resources administrator Female Yes 06/14/25 10:44 HX of Motion Sickness No 06/14/25 10:44 HX of N/V After Surgery Yes 06/14/25 10:44 Non-Smoker Yes 06/14/25 10:44 Duration of Surgery greater No 06/14/25 10:44 than 60 minutes Number of Risk Factors 3 06/14/25 10:44 PONV Score Moderate Risk 06/14/25 10:44 Height Weight Height Weight: Anesthesia: Height Weight Height 5 ft 4 in 12/08/24 07:48 Respiratory Assessment Respiratory Assessment - human resources administrator: Respiratory Tract Infection Hx - human resources administrator Hx Respiratory Tract Infection No 06/14/25 10:44 STOP Sleep Apnea STOP Sleep Apnea - human resources administrator: STOP Sleep Apnea - human resources administrator Hx Hypertension No 06/14/25 10:44 Hx Sleep Apnea No 06/14/25 10:44 CPAP BIPAP Do you snore loudly (louder No 06/14/25 10:44 than talking or can be heard Do you often feel tired/ No 06/14/25 10:44 fatigued/ sleepy during daytime? Has anyone observed you stop No 06/14/25 10:44 breathing during sleep? STOP Results Negative 06/14/25 10:44 QUESTION #5 FULL TEXT : Do you snore loudly (louder than talking or can be heard through closed doors)? 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 Specify any problems Hx of Preganancy in last 3 No 06/14/25 10:44 Months Nurse Filling Out Transfusion [facility] 06/14/25 10:44 Questions: Date: 06/14/25 06/14/25 10:44 Time: 10:50 06/14/25 10:44 Patient unable to answer at this time (ie. confused, unrespo /Reproduction History /Reproductive History - human resources administrator: /Reproductive Hx- human resources administrator Hx Now Gestational Age (in weeks): EDC: Hx Hx Para Hx Section SAB No 06/11/24 09:40 PFSH Medical History History of steroid therapy High cholesterol Acute otitis externa of right ear URI (upper respiratory infection) Wears glasses Post-menopausal Thyroid disease Low platelet count History of hiatal hernia Gastric reflux Non-smoker History of echocardiogram History of stress test Cardiology follow-up encounter History of irregular heartbeat Neuropathy Essential tremor RLS (restless legs syndrome) Hypothyroidism Essential hypertension Fatty liver COVID-19 UTI (urinary tract infection) Trochanteric bursitis of right hip Thrombocytopenia IBS (irritable bowel syndrome) GERD (gastroesophageal reflux disease) Esophagitis Diverticulosis Cyst of left kidney Home Medications ???Medication ???Instructions ???Recorded ???Last Taken ???Type albuterol sulfate 90 mcg/actuation 2 puff inhalation Q4H PRN Sob / Or 10/11/17 06/14/24 History (more content not included)... Normal [facility] ABD Limited w/ Elastographyo n 06-11-2025 ABD Limited w/ Elastography [facility] Imaging Services [address] [place] [address] ABD Limited w/ Elastography MR#: [id number] Acct: [id number] Name: HALLIE GUZMAN Rep #: [id number] : 1950 F 75 From: Felix colorado MD PCP: Dr. Sarah Huynh MD Status: REG CLI Study: ABD Limited w/ Elastography Date of Exam: 05/31 11/24 Exam# [id number] Ordering Dr: Estefany Huerta PROCEDURE: ABD LIMITED W/ ELASTOGRAPHY REASON FOR EXAM: FATTY LIVER COMPARISON: Prior study dated March 05, 2023. TECHNIQUE: Procedure Code: USABDLELPARO Modality: US Procedure: ABD LIMITED W/ ELASTOGRAPHY Right upper quadrant abdominal ultrasound. [employer] ElastQ Imaging shear wave elastography for non- invasive assessment of liver tissue stiffness. Ace EPIQ Elite. FINDINGS: LIVER: Size: Unremarkable Length: 16.1 cm Echotexture: Normal Contour: Normal Lesions: None identified Elastography: EQI Med: 3.4 kPa EQI Med Asa: 1.1 m/s IQR/Med: 10.8 %* GALLBLADDER: Surgically absent. COMMON BILE DUCT: Normal measuring 4 mm . PANCREAS: Normal Visualized portions of the right kidney are unremarkable. No right upper quadrant ascites. US/ABD Limited w/ Elastography IMPRESSION: No significant hepatic fibrosis. Status post cholecystectomy. Reference Values: SRU <1.37 m/s (5.7kPa): No to mild fibrosis 1.37 m/s - 2.2 m/s: Moderate to severe fibrosis >2.2 m/s (15kPa): Significant fibrosis / cirrhosis METAVIR Score F2 or higher: 1.34 m/s (5.7kPa) F3 or higher: 1.55 m/s (7.3kPa) F4: 1.80 m/s (10kPa) * If the IQR/Med is >30%, the variance in the measurements is a large and the accuracy of the measurement may be in question. Reading Location: [id number] CC: Dr. Sarah Huynh MD; ERIC Long Internet Sales Consultant: Signed Normal [facility] Gastroenterology Visit Repor ton 04-13-2025 Gastroenterology Visit Report [facility] Gastroenterology [address] [place] [address] OFFICE VISIT Date of Service: 04/13/25 MR#: [id number] Acct: [id number] Name: HALLIE GUZMAN Rep #: [id number] : 1950 Provider: ERIC Long Age/Sex: 74/F Location: [email or web address] Status: Signed Intake Vital Signs 09/09/24 11:55 12/08/24 07:48 Height 5 ft 4 in 5 ft 4 in Intake Visit Reasons: 6 M FU Chief Complaint: f/u Allergies Sulfa (Sulfonamide Antibiotics) Allergy (Intermediate, Verified 12/17/24 16:48) Other atorvastatin (From Lipitor) Allergy (Mild, Verified 12/17/24 16:48) itching adhesive tape Adverse Reaction (Verified 12/17/24 16:48) Rash Have you fallen in the past year?: No Nurse's Note: OV 04/13/25 Pt here for f/u and reports mild constipation. Pt reports she has not had to try the Linzess because she has been having a bm daily. Reports Miralax prn. [facility] Medical History (Updated 04/13/25 @ 09:54 by ERIC Long) Fatty liver Acute otitis externa of right ear URI (upper respiratory infection) Wears glasses Post-menopausal Thyroid disease Low platelet count History of hiatal hernia Gastric reflux Non-smoker History of echocardiogram History of stress test Cardiology follow-up encounter History of irregular heartbeat Neuropathy Essential tremor RLS (restless legs syndrome) Hypothyroidism Essential hypertension COVID-19 UTI (urinary tract infection) Trochanteric bursitis of right hip Thrombocytopenia IBS (irritable bowel syndrome) GERD (gastroesophageal reflux disease) Esophagitis Diverticulosis Cyst of left kidney Surgical History S/P hysterectomy S/P cholecystectomy S/P hernia repair ( 01/14/19) S/P appendectomy S/P colectomy Family History Father Heart disease Mother Heart disease Hypertension Thyroid disorder CVA (cerebral vascular accident) Brother Heart disease Brother Heart disease Other IBS (irritable bowel syndrome) Social History Smoking Status: Never smoker alcohol intake: current alcohol intake frequency: holidays/special occasions only substance use type: does not use caffeine: Yes what type of physical activity do you participate in: walking seatbelt use: always do you feel safe at home: Yes additional social history: - Luis Patient and are both retired HPI HPI Chief Complaint: f/u Details: HALLIE GUZMAN, is a 74 F who presents to the office today for f/u. EGD/colonoscopy 05.30. [facility] EGD erythematous duodenopathy Colonoscopy diverticulosis Small bowel Xray 09.27.20 without acute/chronic finding Acute abd series 10.24.20 without acute/chronic finding CT abd/pel 03.27.21 hepatic steatosis; small hiatal hernia BGI established in 2021 with epigastric pain and nausea a few times per week. Biochemical 09.10.22 coag, ferritin, GGTP, AMA, ASM WNL US/elastography 09.27.22 hepatic measurement 13.1cm with fatty infiltration, stiffness 12.5kPa; increased pancreatic echogenicity; mild right hydronephrosis. Biochemical .02.19 ANCA profile WNL US/elastography 03.05.23 hepatic measurement 13.4cm with fatty infiltration, stiffness 6kPa; normal pancreas EGD 06.15.24; - Normal esophagus. - Medium-sized hiatal hernia. - Gastric stenosis was found at the pylorus. Biopsied. - Erythematous mucosa in the gastric body. Biopsied. - Non-bleeding duodenal diverticulum OV 1.24.25 Pt doing ok since last visit.. She has not been taking pantoprazole on a daily basis. Continues to have constipation. She has lost weight unintentionally. Start PPI daily, Trial Linzess. CBC and thyroid panel. OV 7.15.25 Pt discontinuing gabapentin and she feels this helped with her constipation. She is having a bm 2-3 times per day. Heartburn is well controlled with Pantoprazole 40 mg daily. She is due for a colonoscopy now. ROS Const Constitutional: Positive for weight change; No fatigue or fever(s) ENT ENT: No difficulty swallowing Gastro GI: Positive for constipation; No abdominal pain, belching, bloating, change in bowel habits, change in stool character, coffee ground emesis, cramping, diarrhea, heartburn, difficulty swallowing, feeling full early, excessive flatus, incontinent of stools, Vomiting blood/hematemesis, Blood in stool, loose stools, Black,tarry stools, nausea/dyspepsia, pain with swallowing, vomiting or other Musc Musculoskeletal: Positive for stiffness and restless legs; No joint pain Skin Skin: No yellowing of the eye or itchy eyes Neuro Neurology: Positive for restless legs Psych Psychiatric: No anxiety and No depression Endo Endocrine: Positive for weight change; (more content not included)... Normal [facility] Ankle Brachial Indexon 04-05 Ankle Brachial Index [facility] [address] [place] [address] Ankle Brachial Index 04/05/25 1102 MR#: [id number] Acct: [id number] Name: HALLIE GUZMAN Rep #: [id number] : 1950 74 From: Tony Bolden MD Attending Dr: Dr. Tony Bolden MD Status: DE P CLI Ordering Dr: Tony Bolden MD Date: 04/05/25 Location: [facility] Sex: F C Admitted: Reason For Study Reason For Study: Stricture of artery Procedure A bilateral lower extremity continuous wave Doppler with analog waveform analysis and ankle brachial indexes. Left Segmental Pressures Left brachial= 132mmHg. Left posterior tibial artery = 122mmHg. Left dorsalis pedis artery = 136mmHg. Left digit = 91 mmHg. The left dorsalis pedis waveforms are triphasic. The left posterior tibial artery waveforms are triphasic. Right Segmental Pressures Right brachial= 132mmHg. Right posterior tibial artery = 141mmHg. Right dorsalis pedis artery = 144mmHg. Right digit = 111 mmHg. The right dorsalis pedis waveforms are triphasic. The right posterior tibial artery waveforms are triphasic. Indices The right ankle brachial index by the dorsalis pedis is 1.09. The right ankle brachial index by the posterior tibial artery is 1.07. The left ankle brachial index by the dorsalis pedis is 1.03. The left ankle brachial index by the posterior tibial artery is 0.92. The left digital-brachial index is 0.69. VL/Ankle Brachial Index Interpretation Summary Resting ankle-brachial indices appear bilaterally normal. Ordering Physician: Tony Bolden Referring Physician: Sarah Huynh Performed By: Tasha Kelly RVT 04/16/25 1721 Date Tony Bolden MD CC: Dr. Tony Bolden MD; Dr. Sarah Huynh MD Date Dictated: 04/05/25 1102 Date Transcribed: 04/16/25 172 Internet Sales Consultant: Signed Normal [facility] Breast imaging reportOrdered By: Felix Galeana on 02-26-2025 Study report [facility] Imaging Services [address] [id number] SCRN MAMM (CAD)W/JOSH BILAT MR#: [id number] Acct: [id number] Name: HALLIE GUZMAN Rep #: [id number] : 1950 F 74 From: Carlos Galeana MD PCP: Dr. Sarah Huynh MD Status: REG CLI Study:SCRN MAMM (CAD)W/JOSH BILAT Date of Exa m: 02/26/25 Exam# [id number] Ordering Dr: Juany Roberto NP BUDGET SPECIALIST-C EXAM: SCRN MAMM (CAD)W/JOSH BILAT DATE: 02/26/2025 CLINICAL HISTORY: F, Age 74 y/o , SCREENING FOR BREAST CANCER No family history. BREAST CANCER RISK ASSESSMENT: Not assessed. TECHNIQUE: Bilateral screening digital breast tomosynthesis with 2D and 3D images. Computeraided detection. COMPARISON: Prior exam(s) dated February 25, 2024.. FINDINGS: TISSUE DENSITY: The breast tissue is heterogenously dense, which may obscure small masses. Bilateral Breast Mammographic Findings: No significant masses, calcifications or other abnormalities are identified. No suspicious masses, areas of developing architectural distortion, or suspicious calcifications. There has been no significant interval change. BI/SCRN MAMM (CAD)W/JOSH BILAT IMPRESSION: OVERALL FINAL ASSESSMENT: BIRADS 1 NEGATIVE RECOMMENDATION: Routine annual follow-up in 1 Year A letter with findings and recommendations will be mailed to the patient. Reading Location: [facility] CC: BUDGET SPECIALIST-C Juany Roberto; Dr. Sarah Huynh MD ~ Internet Sales Consultant: Signed [facility] SCRN MAMM (CAD)W/JOSH BILATo n 02-26-2025 SCRN MAMM (CAD)W/JOSH BILAT [facility] Imaging Services [address] [place] [address] SCRN MAMM (CAD)W/JOSH BILAT MR#: [id number] Acct: [id number] Name: HALLIE GUZMAN Rep #: [id number] : 1950 F 74 From: Felix colorado MD PCP: Dr. Sarah Huynh MD Status: REG CLI Study: SCRN MAMM (CAD)W/JOSH BILAT Date of Exam: 01/30 Exam# [id number] Ordering Dr: Juany Roberto NP, NP -Mary EXAM: SCRN MAMM (CAD)W/JOSH BILAT DATE: 02/26/2025 CLINICAL HISTORY: F, Age 74 y/o , SCREENING FOR BREAST CANCER No family history. BREAST CANCER RISK ASSESSMENT: Not assessed. TECHNIQUE: Bilateral screening digital breast tomosynthesis with 2D and 3D images. Computer aided detection. COMPARISON: Prior exam(s) dated February 25, 2024.. FINDINGS: TISSUE DENSITY: The breast tissue is heterogenously dense, which may obscure small masses. Bilateral Breast Mammographic Findings: No significant masses, calcifications or other abnormalities are identified. No suspicious masses, areas of developing architectural distortion, or suspicious calcifications. There has been no significant interval change. BI/SCRN MAMM (CAD)W/JOSH BILAT IMPRESSION: OVERALL FINAL ASSESSMENT: BIRADS 1 NEGATIVE RECOMMENDATION: Routine annual follow-up in 1 Year A letter with findings and recommendations will be mailed to the patient. Reading Location: [place] [address] CC: STEVE Roberto; Dr. Sarah Huynh MD Internet Sales Consultant: Signed Normal [facility] 12-19-2024 [facility] Office Visit ([facility] ) THOMASHALLIE Dileep ([id number]) 1950 F Date Time Provider Department 12/19/24 10:45 AM VIVIANA TOBIAS WSTR During your visit today, we recorded the following information about you: Temperature Pulse Respiration Blood pressure 98.9 degrees 92/minute 16/minute 123/84 Weight 67.5 kg Viviana Tobias APRN.CNP 12/19/2024 11:45 AM Signed This note was created using NoteWriter. Subjective Hallie Guzman is a 74 year old female. HPI pt has been taking Z-pakk since Saturday with no improvement in cough/congestion. Fever/chills off/on, body aches, wheezing, SOB. Review of Systems Constitutional: Positive for chills and fever. Respiratory: Positive for cough, shortness of breath and wheezing. Objective BP 123/84 Pulse 92 Temp 37.2 ?C (98.9 ?F) Resp 16 Wt 67.5 kg (148 lb 13 oz) SpO2 95% BMI 25.54 kg/m? Physical Exam HENT: Head: Normocephalic. Nose: Congestion present. Cardiovascular: Rate and Rhythm: Normal rate. Pulmonary: Breath sounds: Wheezing present. Skin: General: Skin is warm. Neurological: Mental Status: She is alert. Assessment and Plan ASSESSMENT/PLAN: 1. Acute cough - ICD9: 786.2, ICD10: R05.1 (primary diagnosis) +pneumonia- Doxycycline orderd - XR CHEST 2V FRONTAL/LAT 2. Influenza A - ICD9: 487.1, ICD10: J10.1 Positive result Discussed supportive care If symptoms not improving in 3-5 days follow up with EC or PCP Viviana Tobias APRN.AUDIO VISUAL EQUIPMENT RENTAL CLERK Allergies As of Date: 12/19/2024 Noted Allergy Reaction SULFAMETHOXAZOLE 11/01/2020 14 - Other: See Comments Comments: Very shaky LIPITOR (ATORVASTATIN CALCIUM) 12/17/2006 17 - Myalgia Date Reviewed: 12/19/2024 Reviewed by: Ella Jean Baptiste MA - Fully Assessed Reason for Visit: requesting CXR [Other] Primary Visit Diagnosis:Acute cough [R05.1] Other Visit Diagnosis:Influenza A [J10.1] Order(s):XR CHEST 2V FRONTAL/LAT [1550907] Order #: [id number] FUTURE INFLUENZA AANDB MOLECULAR (POC) [3196874] Order #: [id number]. #:[id number] doxycycline monohydrate 100 mg tabletTake 1 tablet by mouth two times a day for 5 days.Disp: 10 tabletRfl: 0 Prescriptions as of 12/19/2024 - doxycycline monohydrate 100 mg tablet Take 1 tablet by mouth two times a day for 5 days. - gabapentin (NEURONTIN) 300 mg capsule Take 1 capsule by mouth daily at bedtime for 180 days. - simvastatin (ZOCOR) 40 mg tablet TAKE [...] tablet by mouth three times daily. - levothyroxine (LEVOXYL) 88 mcg tablet Take [...] 4 weeks Problem List As Of Date 12/19/2024 Noted Resolved Hyperlipidemia LDL goal <100 [E78.5] [...] [M54.16] 02/29/2020 DDD (degenerative disc disease), lumbar [M51.36*02/29/2020 Acute pain of right knee [M25.561] 02/28/2021 Chronic constipation [K59.09] 04/11/2021 Chronic nausea [R11.0] / (more content not included)... Normal [facility] INFLUENZA A&B MOLECULAR (POC )on 12-19-2024 Flu A (POCT) Positive Abnormal Negative [facility] Comment on above: Location: [address] [facility], [place], [address] Interpretation and review of laboratory results Abnormal [facility] Procedural Control Valid [facility] Location: [address] [facility], [place], [address] [facility] POINT OF CARE [facility] XR CHEST 2V FRONTAL/LATon XR CHEST 2V FRONTAL/LAT * * *Final Report* * * DATE OF EXAM: Dec 19 2024 11:04AM WOX [id number] - XR CHEST 2V FRONTAL/LAT / PROCEDURE REASON: Acute cough * * * * Physician Interpretation * * * * EXAMINATION: CHEST RADIOGRAPH (2 VIEW FRONTAL and LATERAL) CLINICAL HISTORY: Acute cough MQ: [id number] EXAM DATE/TIME: 12/19/2024 11:04 AM COMPARISON: 10/02/2015. RESULT: Lines, tubes, and devices: None. Lungs and pleura: No consolidation. No lung mass. No pleural effusion. No pneumothorax. Cardiomediastinal silhouette: Stable cardiomediastinal silhouette. Bones and soft tissues: Unremarkable. IMPRESSION: Stable exam with no acute radiographic abnormality. Internet Sales Consultant: PSCB Transcribe Date/Time: Dec 20 2024 10:14P Dictated by : NICHOLAS ZAMORANO MD This examination was interpreted and the report reviewed and electronically signed by: NICHOLAS ZAMORANO MD on Dec 20 2024 10:14PM EST [id number] Normal [facility] No Panel InformationOrdered By: Ramone Amaya on 12-17-2024 Influenza Types A,B Rapid (Clinic) Negative [facility] POC SARS CoV-2 Antigen Negative [facility] Urgent Care Visit Reporton 0 12-17-2024 Urgent Care Visit Report [facility] [address], [address] [place] [address] OFFICE VISIT Date of Service: 12/17/24 MR#: [id number] Acct: [id number] Name: HALLIE GUZMAN Rep #: [id number] : 1950 Provider: ERIC Reilly Age/Sex: 74/F Location: [facility] Status: Signed Intake Vital Signs 12/08/24 07:48 12/17/24 16:48 Height 5 ft 4 in Weight: 155 lb BMI 26.6 BP 120/77 118/72 Blood Pressure Location Lt brachial Rt brachial Position Sitting Sitting Respiration 18 15 Pulse 60 96 Pulse Source Monitor NIBP Temp 98.7 F Temp Source Oral Pulse Oximetry (%) 97 96 Oxygen Delivery Method room air Intake Visit Reasons: COUGH, SORE THROAT Chief Complaint: cough, BYRD, ST, chest heaviness Cobbler Apprentice Required: No Is patient in pain?: Yes Allergies Sulfa (Sulfonamide Antibiotics) Allergy (Intermediate, Verified 12/17/24 16:48) Other atorvastatin (From Lipitor) Allergy (Mild, Verified 12/17/24 16:48) itching adhesive tape Adverse Reaction (Verified 12/17/24 16:48) Rash Is last menstrual period known: No Post menopausal: Yes Patient : No Have you fallen in the past year?: No Nurse's Note: cough, BYRD, ST, chest heaviness x 48 hours. denies fever. feels like she was hit by truck. hx bronchitis. [facility] Medical History (Updated 12/18/24 @ 06:30 by Ramone REYES, ERIC) Acute otitis externa of right ear URI (upper respiratory infection) Wears glasses Post-menopausal Thyroid disease Low platelet count History of hiatal hernia Gastric reflux Non-smoker History of echocardiogram History of stress test Cardiology follow-up encounter History of irregular heartbeat Neuropathy Essential tremor RLS (restless legs syndrome) Hypothyroidism Essential hypertension Fatty liver COVID-19 UTI (urinary tract infection) Trochanteric bursitis of right hip Thrombocytopenia IBS (irritable bowel syndrome) GERD (gastroesophageal reflux disease) Esophagitis Diverticulosis Cyst of left kidney Surgical History S/P hysterectomy S/P cholecystectomy S/P hernia repair ( 01/14/19) S/P appendectomy S/P colectomy Family History Father Heart disease Mother Heart disease Hypertension Thyroid disorder CVA (cerebral vascular accident) Brother Heart disease Brother Heart disease Other IBS (irritable bowel syndrome) Social History Smoking Status: Never smoker alcohol intake: current alcohol intake frequency: holidays/special occasions only substance use type: does not use caffeine: Yes what type of physical activity do you participate in: walking seatbelt use: always do you feel safe at home: Yes additional social history: - Luis Patient and are both retired HPI HPI Chief Complaint: cough, BYRD, ST, chest heaviness Details: HALLIE GUZMAN is a 74 F who presents to the office today for complaint of cough, headache, sore throat and congestion for the past 2 days. Patient denies fever, chills, sweats. No nausea, vomiting or diarrhea. No hemoptysis, shortness of breath or difficulty breathing. No loss of taste or smell. No other associated symptoms or alleviating/aggravating factors. ROS Const Constitutional: No other (as above) Exam Const General: cooperative and well developed HENMT Head: normal to inspection and atraumatic Ears: hearing grossly normal bilaterally Nose: nasal discharge clear Face and sinus: normal facial exam Mouth: oral mucosae normal Throat: abnormal tonsil bilaterally hypertrophy 1+ Resp Effort Inspection: normal respiratory effort and no audible wheezes Auscultation: Bilateral: Clear to Auscultation Cardio Rate: regular rate Rhythm: regular rhythm Neuro General: patient alert Psych Appearance: grossly normal Mental Status: mental status grossly normal Results POC SARS AG POC SARS AG Negative Last Edit by Sherlyn Donis on 12/17/24 16:57 POC FLU A B Office Flu A B Negative FLU A B Last Edit by Sherlyn Donis on 12/17/24 16:57 Coding Level of Care Code Off vis,new,level 3 Diagnoses Acute bronchitis J20.9 Assessment and Plan Assessment and Plan (1) Acute bronchitis: Status: Acute Plan: Patient tested negative for influenza and COVID in the office today. Azithromycin, Medrol Dosepak and ipratropium as prescribed today. Patient advised to not start the antibiotic for at least the next 2 days and if eating no improvement or symptoms are worsening then go ahead and start it. Encouraged to get plenty of rest, drink lots of clear liquids, and use Tylenol or Ibuprofen (unless contraindicated) for fever and comfort. Patient also (more content not included)... Normal [facility] Urine Cultureon 12-12-2024 URC Mixed Gram Positive Organisms Enders Count 25,000-50,000 MIXC Mixed contaminants. Submit a new specimen if indicated. Normal [facility] Comment on above: Performed By: #### M 100.1600 #### [facility] [address] [place], [place], [id number] Urine cultureOrdered By: Maximiliano Huynh on 12-10-2024 Bacteria identified Cx Nom (U) Positive Abnormal [facility] Cardiology Visit Reporton Cardiology Visit Report [facility] [address] [place], [place] [address] OFFICE VISIT Date of Service: 12/08/24 MR#: [id number] Acct: [id number] Name: HALLIE GUZMAN Rep #: [id number] : 1950 Provider: ERIC Dahl Age/Sex: 74/F Location: [facility] Status: Signed HPI HPI History of Present Illness Details: Hallie Guzman is a 74-year-old lady who presents to the office today for a cardiovascular follow up visit. She said that she had a blood flow screening and was told that there was a mild abnormality in there and so she needed to see a capsule machine operator. Her lipid profile was noted to be excellent with a total cholesterol 194 HDL of 43 LDL 125. The blood flow screening demonstrated no significant abnormality other than a mildly abnormal ankle-brachial index of 0.91 on the left side. She underwent a coronary calcium score on 03/01/2024 which demonstrated moderate plaque noted in 3 vessels. She underwent a stress which demonstrated Normal exercise myocardial perfusion stress test at a moderate workload From a cardiac standpoint, patient is doing well. She does not have any chest discomfort/heaviness/ti ghtness. Her exercise tolerance is stable for her age. She does not have any worsening symptoms of shortness of breath. She does not have any orthopnea. She denies PND. She does not have any symptoms of congestive heart failure. She does not have any palpitations that she is aware of. She does not have any lightheadedness or dizziness. She does not have any near- syncope or syncope. She does not have any lower extremity edema. She does not have any symptoms of claudication. Intake Vital Signs 06/15/24 06:21 09/09/24 11:55 12/08/24 07:48 Height 5 ft 4 in 5 ft 4 in 5 ft 4 in Weight: 155 lb 155 lb BMI 26.6 26.6 BP 124/80 H 120/77 Blood Pressure Location Lt brachial Position Sitting Sitting Respiration 18 Pulse 74 60 Pulse Source Monitor Temp 97.9 F Pulse Oximetry (%) 98 97 Oxygen Delivery Method room air Intake Visit Reasons: 6 M FU Cobbler Apprentice Required: No Is patient in pain?: No Allergies Sulfa (Sulfonamide Antibiotics) Allergy (Intermediate, Verified 12/08/24 13:50) Other atorvastatin (From Lipitor) Allergy (Mild, Verified 12/08/24 13:50) itching adhesive tape Adverse Reaction (Verified 12/08/24 13:50) Rash Medications ???Medication ???Instructions ???Recorded ???Confirmed ???Type albuterol sulfate 90 mcg/actuation 2 puff inhalation Q4H PRN Sob / Or 10/11/17 12/08/24 History aerosol inhaler Wheezing cholecalciferol (vitamin D3) 50 4,000 unit PO QDAY 10/11/17 History mcg (2,000 unit) capsule levothyroxine 50 mcg tablet 88 mcg PO DAILY 06/06/18 12/08/24 History pantoprazole 40 mg tablet,delayed 40 mg PO DAILY PRN GERD 03/17/24 12/08/24 History release rosuvastatin 20 mg tablet 40 mg PO QHS 05/15/24 12/08/24 His tory estradiol 0.01% (0.1 mg/gram) 1 appful vaginal PRN 06/11/2411/28 History vaginal cream Ejection fraction %: 60 Have you fallen in the past year?: No PFSH Medical History (Updated 10/23/24 @ 10:33 by ERIC Long) Acute otitis externa of right ear URI (upper respiratory infection) Wears glasses Post-menopausal Thyroid disease Low platelet count History of hiatal hernia Gastric reflux Non-smoker History of echocardiogram History of stress test Cardiology follow-up encounter History of irregular heartbeat Neuropathy Essential tremor RLS (restless legs syndrome) Hypothyroidism Essential hypertension Fatty liver COVID-19 UTI (urinary tract infection) Trochanteric bursitis of right hip Thrombocytopenia IBS (irritable bowel syndrome) GERD (gastroesophageal reflux disease) Esophagitis Diverticulosis Cyst of left kidney Surgical History S/P hysterectomy S/P cholecystectomy S/P hernia repair ( 01/14/19) S/P appendectomy S/P colectomy Family History Father Heart disease Mother Heart disease Hypertension Thyroid disorder CVA (cerebral vascular accident) Brother Heart disease Brother Heart disease Other IBS (irritable bowel syndrome) Social History Smoking Status: Never smoker alcohol intake: current alcohol intake frequency: holidays/special occasions only substance use type: does not use caffeine: Yes what type of physical activity do you participate in: walking seatbelt use: always do you feel safe at home: Yes additional social history: - Luis Patient and are both retired ROS Const Const: Negative for fatigue, weakness, headache(s) or frequent falls Eyes Eyes: Negative f (more content not included)... Normal [facility] Bilirubin directOrdered By: Jazzy Altamirano on 12-04-2024 Bilirubin.direct [Mass/Vol] 0.15 mg/dL 0.00-0.30 [facility] Bilirubin, totalOrdered By: Jazzy Altamirano on 12-04-2024 Bilirubin [Mass/Vol] 0.29 mg/dL 0.00-1.30 [facility] Calculated very low density lipoprotein (VLDL) cholesterol measurementOrdered By: Jazzy Altamirano on 12-04-2024 Calculated very low density lipoprotein (VLDL) cholesterol measurement 17 mg/dL 5-40 [facility] VLDL Cholesterol 17 mg/dL 5-40 [facility] LDL calc ser/plasOrdered By: Jazzy Altamirano on 12-04-2024 Cholesterol in LDL [Mass/Vol] 82 mg/dL [facility] Comment on above: Xooeofmpca=681-551 m g/dL & Higher Gocl=211 mg/dL or greater LDL Cholesterol, Calculated 82 mg/dL [facility] Comment on above: Wuhazsjyuw=928-849 m g/dL & Higher Qvai=297 mg/dL or greater Laboratory - Chemistry and C hemistry - challengeOrdered By: Jazzy Altamirano on 12-04-2024 AST [Catalytic activity/Vol] 15 U/L <32 [facility] Lipid Profileon 12-04-2024 CHOL:HDL 3.28 Normal [facility] Comment on above: Performed By: #### L 500.3400, L500.6570 #### [facility] [address] [place], [place], [id number] Cholesterol [Mass/Vol] 142 mg/dL Normal <=200 [facility] Comment on above: Result Comment: Chol esterol level, Desirable <200 mg/dL Borderline high cholesterol 200-239 mg/dL High cholesterol >=240 mg/dL Recommendations of the NCEP Adult Treatment Panel for the following risk-cutoff thresholds for the [place] population. Performed By: #### L 500.3400, L500.4100 #### [facility] [address] [place], [address] Cholesterol in HDL [Mass/Vol] 43 mg/dL Normal [facility] Comment on above: Result Comment: Lucie onal Cholesterol Education Program (NCEP) guidelines: <40 mg/dL: Low HDL-cholesterol (major risk factor for CHD) >= 60 mg/dL: High HDL-cholesterol (negative risk factor for CHD) HDL-cholesterol is affected by a number of factors, e.g. smoking, exercise, hormones, sex and age. Performed By: #### L 500.3400, L500.4100 #### [facility] [address] [place], [address] Cholesterol in LDL [Mass/Vol] 82 mg/dL Normal [facility] Comment on above: Result Comment: Bord lfteya=468-031 mg/dL Higher Gikb=622 mg/dL or greater Performed By: #### L 500.3400, L500.4100 #### [facility] [address] [place], [address] Cholesterol in VLDL [Mass/Vol] 17 mg/dL Normal 5-40 [facility] Comment on above: Performed By: #### L 500.3400, L500.4100 #### [facility] [address] [place], [address] Triglyceride [Mass/Vol] 83 mg/dL Normal [facility] Comment on above: Result Comment: The drugs N-Acetylcysteine and Metamizole may falsely depress this assay. Normal range: <150 mg/dL Borderline High: 150-199 mg/dL High: 200-499 mg/dL Very High: >500 mg/dL Performed By: #### L 500.3400, L500.4100 #### [facility] [address] [place], [address] Liver Profileon 12-04-2024 Albumin [Mass/Vol] 4.1 g/dL Normal 3.4-4.8 [facility] Comment on above: Performed By: #### L 500.3400, L500.4100 #### [facility] [address] [place], [address] ALK PHOS 88 U/L Normal 35-104 [facility] Comment on above: Performed By: #### L 500.3400, L500.4100 #### [facility] [address] [place], [address] ALT [Catalytic activity/Vol] 17 U/L Normal <=34 [facility] Comment on above: Performed By: #### L 500.3400, L500.4100 #### [facility] [address] [place], [address] AST [Catalytic activity/Vol] 15 U/L Normal <=31 [facility] Comment on above: Performed By: #### L 500.3400, L500.4100 #### [facility] [address] [place], [address] Bilirubin [Mass/Vol] 0.29 mg/dL Normal 0.00-1.30 [facility] Comment on above: Performed By: #### L 500.3400, L500.4100 #### [facility] [address] [place], [address] Bilirubin.direct [Mass/Vol] 0.15 mg/dL Normal 0.00-0.30 [facility] Comment on above: Performed By: #### L 500.3400, L500.4100 #### [facility] [address] [place], [address] Globulin (S) [Mass/Vol] 2.2 g/dL Normal 2.2-4.2 [facility] Comment on above: Performed By: #### L 500.3400, L500.4100 #### [facility] [address] [place], [place], [id number] T PROT 6.3 g/dL Normal 5.9-8.4 [facility] Comment on above: Performed By: #### L 500.3400, L500.4100 #### [facility] [address] [place], [place], [address] Screening total cholesterol/ high density lipoprotein (HDL) cholesterol ratioOrdered By: Jazzy Altamirano on 12-04-2024 Cholesterol.total/Chol esterol in HDL [Mass ratio] 3.28 {ratio} [facility] Serum globulin measurementOr dered By: Jazzy Altamirano on 12-04-2024 Globulin (S) [Mass/Vol] 2.2 g/dL 2.2-4.2 [facility] Serum or plasma alanine alonzo otransferase (ALT) measurementOrdered By: Jazzy Altamirano on 12-04-2024 ALT [Catalytic activity/Vol] 17 U/L <35 [facility] Serum or plasma albumin josette urement (mass/volume)Ordered By: Jazzy Altamirano on 12-04-2024 Albumin [Mass/Vol] 4.1 g/dL 3.4-4.8 [facility] Serum or plasma alkaline hellen sphatase measurementOrdered By: Jazzy Altamirano on 12-04-2024 ALP [Catalytic activity/Vol] 88 U/L 35-104 [facility] Serum or plasma cholesterol in HDL measurement (mass/volume)Ordered By: Jazzy Altamirano on 12-04-2024 Cholesterol in HDL [Mass/Vol] 43 mg/dL >40 [facility] Comment on above: National Cholesterol Education Program (NCEP) guidelines:<40 mg/dL: Low HDL-cholesterol (major risk factor for CHD)>= 60 mg/dL: High HDL-cholesterol (negative risk factor for CHD)HDL-cholesterol is affected by a number of factors, e.g. smoking, exercise, hormones, sex and age. Serum or plasma cholesterol measurement (mass/volume)Ordered By: Jazzy Altamirano on 12-04-2024 Cholesterol [Mass/Vol] 142 mg/dL <201 [facility] Comment on above: Cholesterol level, D esirable <200 mg/dLBorderline high cholesterol 200-239 mg/dLHigh cholesterol >=240 mg/dLRecommendations of the NCEP Adult Treatment Panel for the following risk-cutoff thresholds for the [place] population. Total proteinOrdered By: Sonu Altamirano on 12-04-2024 Protein [Mass/Vol] 6.3 g/dL 5.9-8.4 [facility] Triglycerides measurementOrd ered By: Jazzy Altamirano on 12-04-2024 Triglyceride [Mass/Vol] 83 mg/dL <199 [facility] Comment on above: The drugs N-Acetylcy steine and Metamizole may falsely depress this assay. Normal range: <150 mg/dLBorderline High: 150-199 mg/dLHigh: 200-499 mg/dLVery High: >500 mg/dL Vitamin D 1,25-Dihydroxyon 0 10-26-2024 VIT D 1,25 DIHY 55.3 pg/mL Normal 24.8-81.5 [facility] Comment on above: Result Comment: Perf ormed at: BN - [facility] [address] [id number] Pr Intern: Bartolo Camacho MD, Phone: [phone] Performed By: #### L 3300.0960, L100.0100, L500.4050, L501.2450, L501.5200, L501.91770, L501.9520, L506.0400 ####[facility] [address] [place], [place], [address] 1,25-dihydroxyvitamin D3 [Ma ss/Vol]Ordered By: Estefany Huerta on 10-23-2024 Vitamin D 1,25-Dihydroxy 55.3 pg/mL 24.8-81.5 [facility] Comment on above: Performed at: BN - [facility] [address] [id number] Director: Bartolo Camacho MD, Phone: [phone] Absolute neutrophil countOrd ered By: Estefany Huerta on 10-23-2024 Neutrophils (Bld) [#/Vol] 3.6 10*3/uL 2.0-7.7 [facility] Albumin to globulin ratioOrd ered By: Estefany Huerta on 10-23-2024 Albumin/Globulin [Mass ratio] 1.2 {ratio} 0.9-2.4 [facility] Basophil percentageOrdered B y: Estefany Huerta on 10-23-2024 Basophils/100 WBC (Bld) 0.4 % 0-1 [facility] Bilirubin, totalOrdered By: Estefany Huerta on 10-23-2024 Bilirubin [Mass/Vol] 0.30 mg/dL 0.20-1.00 [facility] Comment on above: For patients on eltr ombopag therapy, use of Dimension [place] TBIL is not recommended. Blood urea nitrogen (BUN)/cr eatinine ratioOrdered By: Estefany Huerta on 10-23-2024 Urea nitrogen/Creatinine [Mass ratio] 22.8 mg/mg High 10-20 [facility] CBC W/Diff, Automatedon 10-01 Absolute Lymph 1.11 X10 3/uL Normal 0.83-4.51 [facility] Comment on above: Performed By: #### L 3300.0960, L100.0100, L500.4050, L501.2450, L501.5200, L501.74461, L501.9520, L506.0400 #### [facility] [address] [place], [address] Absolute Neut 3.6 X10 3/uL Normal 2.0-7.7 [facility] Comment on above: Performed By: #### L 3300.0960, L100.0100, L500.4050, L501.2450, L501.5200, L501.63023, L501.9520, L506.0400 #### [facility] [address] [place], [address] Basophils/100 WBC (Bld) 0.4 % Normal 0-1 [facility] Comment on above: Performed By: #### L 3300.0960, L100.0100, L500.4050, L501.2450, L501.5200, L501.90831, L501.9520, L506.0400 #### [facility] [address] [place], [address] Eosinophils/100 WBC (Bld) 3.4 % Normal 0-5 [facility] Comment on above: Performed By: #### L 3300.0960, L100.0100, L500.4050, L501.2450, L501.5200, L501.87311, L501.9520, L506.0400 #### [facility] [address] [facility], [address] (143) Erythrocyte distribution width (RBC) [Ratio] 12.8 % Normal 11.6-14.6 [facility] Comment on above: Performed By: #### L 3300.0960, L100.0100, L500.4050, L501.2450, L501.5200, L501.90756, L501.9520, L506.0400 #### [facility] [address] [place], [place], [id number] (145) Hematocrit (Bld) [Volume fraction] 47.0 % Normal 37-47 [facility] Comment on above: Performed By: #### L 3300.0960, L100.0100, L500.4050, L501.2450, L501.5200, L501.80524, L501.9520, L506.0400 #### [facility] [address] [place], [address] Hemoglobin (Bld) [Mass/Vol] 15.6 g/dL High 12.0-15.0 [facility] Comment on above: Performed By: #### L 3300.0960, L100.0100, L500.4050, L501.2450, L501.5200, L501.16416, L501.9520, L506.0400 #### [facility] [address] [place], [address] IG% 0.200 Normal 0.0-0.9 [facility] Comment on above: Result Comment: IG% - Immature Granulocytes (promyelocytes, myelocytes and metamyelocytes) > 1% indicates that a LEFT SHIFT is Present. Performed By: #### L 3300.0960, L100.0100, L500.4050, L501.2450, L501.5200, L501.24666, L501.9520, L506.0400 #### [facility] [address] [place], [address] Lymphocytes/100 WBC (Bld) 20.1 % Normal 19-41 [facility] Comment on above: Performed By: #### L 3300.0960, L100.0100, L500.4050, L501.2450, L501.5200, L501.00227, L501.9520, L506.0400 #### [facility] [address] [place], [address] MCH (RBC) [Entitic mass] 30.4 pg Normal 27.0-32.0 [facility] Comment on above: Performed By: #### L 3300.0960, L100.0100, L500.4050, L501.2450, L501.5200, L501.39587, L501.9520, L506.0400 #### [facility] [address] [place], [address] MCHC (RBC) [Mass/Vol] 33.2 g/dL Normal 32-36 [facility] Comment on above: Performed By: #### L 3300.0960, L100.0100, L500.4050, L501.2450, L501.5200, L501.76885, L501.9520, L506.0400 #### [facility] [address] [place], [address] MCV (RBC) [Entitic vol] 91.4 fL Normal 81-99 [facility] Comment on above: Performed By: #### L 3300.0960, L100.0100, L500.4050, L501.2450, L501.5200, L501.55105, L501.9520, L506.0400 #### [facility] [address] [place], [address] Monocytes/100 WBC (Bld) 10.5 % High 0-10 [facility] Comment on above: Performed By: #### L 3300.0960, L100.0100, L500.4050, L501.2450, L501.5200, L501.35495, L501.9520, L506.0400 #### [facility] [address] [place], [address] Neutrophils/100 WBC (Bld) 65.4 % Normal 47-70 [facility] Comment on above: Performed By: #### L 3300.0960, L100.0100, L500.4050, L501.2450, L501.5200, L501.36772, L501.9520, L506.0400 #### [facility] [address] [place], [address] Nucleated RBC (Bld) [#/Vol] 0 10*3/uL Normal 0-5 [facility] Comment on above: Performed By: #### L 3300.0960, L100.0100, L500.4050, L501.2450, L501.5200, L501.14527, L501.9520, L506.0400 #### [facility] [address] [place], [address] Platelet mean volume (Bld) [Entitic vol] 11.6 fL Normal 6.2-12.0 [facility] Comment on above: Performed By: #### L 3300.0960, L100.0100, L500.4050, L501.2450, L501.5200, L501.69460, L501.9520, L506.0400 #### [facility] [address] [place], [address] Platelets (Bld) [#/Vol] 116 10*3/uL Low 150-450 [facility] Comment on above: Performed By: #### L 3300.0960, L100.0100, L500.4050, L501.2450, L501.5200, L501.30398, L501.9520, L506.0400 #### [facility] [address] [place], [address] RBC (Bld) [#/Vol] 5.14 10*6/uL Normal 4.2-5.4 [facility] Comment on above: Performed By: #### L 3300.0960, L100.0100, L500.4050, L501.2450, L501.5200, L501.23882, L501.9520, L506.0400 #### [facility] [address] [place], [address] RDW SD 43.2 fl Normal 35.1-43.9 [facility] Comment on above: Performed By: #### L 3300.0960, L100.0100, L500.4050, L501.2450, L501.5200, L501.29089, L501.9520, L506.0400 #### [facility] [address] [place], [address] WBC (Bld) [#/Vol] 5.5 10*3/uL Normal 4.4-11.0 [facility] Comment on above: Performed By: #### L 3300.0960, L100.0100, L500.4050, L501.2450, L501.5200, L501.55334, L501.9520, L506.0400 #### [facility] [address] [place], [address] Carbon dioxide measurementOr dered By: Estefany Huerta on 10-23-2024 CO2 [Moles/Vol] 28.0 mmol/L 21.0-32.0 [facility] Chloride measurementOrdered By: Estefany Huerta on 10-23-2024 Chloride [Moles/Vol] 110 mmol/L High 98-107 [facility] Metabolic Prof ilon 10-23-2024 Albumin [Mass/Vol] 3.6 g/dL Normal 3.2-5.0 [facility] Comment on above: Performed By: #### L 3300.0960, L100.0100, L500.4050, L501.2450, L501.5200, L501.76401, L501.9520, L506.0400 #### [facility] [address] [place], [address] Albumin/Globulin [Mass ratio] 1.2 {ratio} Normal 0.9-2.4 [facility] Comment on above: Performed By: #### L 3300.0960, L100.0100, L500.4050, L501.2450, L501.5200, L501.84300, L501.9520, L506.0400 #### [facility] [address] [place], [address] ALK P 98 U/L Normal 45-117 [facility] Comment on above: Performed By: #### L 3300.0960, L100.0100, L500.4050, L501.2450, L501.5200, L501.03794, L501.9520, L506.0400 #### [facility] [address] [place], [address] ALT [Catalytic activity/Vol] 23 U/L Normal 13-56 [facility] Comment on above: Performed By: #### L 3300.0960, L100.0100, L500.4050, L501.2450, L501.5200, L501.96773, L501.9520, L506.0400 #### [facility] [address] [place], [address] AST [Catalytic activity/Vol] 10 U/L Low 15-37 [facility] Comment on above: Performed By: #### L 3300.0960, L100.0100, L500.4050, L501.2450, L501.5200, L501.18830, L501.9520, L506.0400 #### [facility] [address] [place], [address] Bilirubin [Mass/Vol] 0.30 mg/dL Normal 0.20-1.00 [facility] Comment on above: Result Comment: For patients on eltrombopag therapy, use of Dimension [place] TBIL is not recommended. Performed By: #### L 3300.0960, L100.0100, L500.4050, L501.2450, L501.5200, L501.56638, L501.9520, L506.0400 #### [facility] [address] [place], [address] BUN/CRE 22.8 RATIO High 10-20 [facility] Comment on above: Performed By: #### L 3300.0960, L100.0100, L500.4050, L501.2450, L501.5200, L501.43794, L501.9520, L506.0400 #### [facility] [address] [place], [address] CA,Total 10.3 mg/dL High 8.5-10.1 [facility] Comment on above: Performed By: #### L 3300.0960, L100.0100, L500.4050, L501.2450, L501.5200, L501.54518, L501.9520, L506.0400 #### [facility] [address] [place], [address] Chloride [Moles/Vol] 110 mmol/L High 98-107 [facility] Comment on above: Performed By: #### L 3300.0960, L100.0100, L500.4050, L501.2450, L501.5200, L501.27579, L501.9520, L506.0400 #### [facility] [address] [place], [address] CO2 [Moles/Vol] 28.0 mmol/L Normal 21.0-32.0 [facility] Comment on above: Performed By: #### L 3300.0960, L100.0100, L500.4050, L501.2450, L501.5200, L501.49507, L501.9520, L506.0400 #### [facility] [address] [place], [address] Creatinine [Mass/Vol] 0.92 mg/dL Normal 0.55-1.02 [facility] Comment on above: Result Comment: The validity of the calculated GFR GFRAA in patients over 70 years has not been determined. Clinical correlation is essential. Performed By: #### L 3300.0960, L100.0100, L500.4050, L501.2450, L501.5200, L501.17629, L501.9520, L506.0400 #### [facility] [address] [place], [address] EST GFR - AA 77 mL/min Normal >60 [facility] Comment on above: Result Comment: Afri can [place] GFR Calc Performed By: #### L 3300.0960, L100.0100, L500.4050, L501.2450, L501.5200, L501.45558, L501.9520, L506.0400 #### [facility] [address] [place], [address] GAP 5 Normal 5-15 [facility] Comment on above: Performed By: #### L 3300.0960, L100.0100, L500.4050, L501.2450, L501.5200, L501.24104, L501.9520, L506.0400 #### [facility] [address] [place], [address] GFR/1.73 sq M.predicted among non-blacks MDRD (S/P/Bld) [Vol rate/Area] 63 mL/min/{1.73_m2} Normal >60 [facility] Comment on above: Result Comment: Non- GFR Calc Performed By: #### L 3300.0960, L100.0100, L500.4050, L501.2450, L501.5200, L501.26973, L501.9520, L506.0400 #### [facility] [address] [place], [address] Globulin (S) [Mass/Vol] 3.1 g/dL Normal 2.2-4.2 [facility] Comment on above: Performed By: #### L 3300.0960, L100.0100, L500.4050, L501.2450, L501.5200, L501.92996, L501.9520, L506.0400 #### [facility] [address] [place], [address] Glucose [Mass/Vol] 111 mg/dL High 74-106 [facility] Comment on above: Result Comment: Fast ing Glucose result from 100 to 125 mg/dL suggests IMPAIRED HOMEOSTASIS per A.D.A. criteria. Performed By: #### L 3300.0960, L100.0100, L500.4050, L501.2450, L501.5200, L501.05411, L501.9520, L506.0400 #### [facility] [address] [place], [address] Potassium [Moles/Vol] 3.6 mmol/L Normal 3.5-5.1 [facility] Comment on above: Performed By: #### L 3300.0960, L100.0100, L500.4050, L501.2450, L501.5200, L501.42187, L501.9520, L506.0400 #### [facility] [address] [place], [address] Sodium [Moles/Vol] 142 mmol/L Normal 136-145 [facility] Comment on above: Performed By: #### L 3300.0960, L100.0100, L500.4050, L501.2450, L501.5200, L501.31069, L501.9520, L506.0400 #### [facility] [address] [place], [address] T PROT 6.7 g/dL Normal 6.4-8.2 [facility] Comment on above: Performed By: #### L 3300.0960, L100.0100, L500.4050, L501.2450, L501.5200, L501.30783, L501.9520, L506.0400 #### [facility] [address] [place], [address] Urea nitrogen [Mass/Vol] 21 mg/dL High 7-18 [facility] Comment on above: Performed By: #### L 3300.0960, L100.0100, L500.4050, L501.2450, L501.5200, L501.13191, L501.9520, L506.0400 #### [facility] [address] [place], [place], [address] Direct serum free thyroxine (FT4) measurementOrdered By: Estefany Huerta on 10-23-2024 Free T4 [Mass/Vol] 1.42 ng/dL 0.76-1.46 [facility] Eosinophil percentageOrdered By: Estefany Huerta on 10-23-2024 Eosinophils/100 WBC (Bld) 3.4 % 0-5 [facility] Erythrocyte distribution wid th ratioOrdered By: Estefany Huerta on 10-23-2024 Erythrocyte distribution width (RBC) [Ratio] 12.8 % 11.6-14.6 [facility] Erythrocyte distribution wid th standard deviationOrdered By: Estefany Huerta on 10-23-2024 Erythrocyte distribution width (RBC) [Entitic vol] 43.2 fL 35.1-43.9 [facility] Estimated glomerular filtrat ion rate (GFR) AmericanOrdered By: Estefany Huerta on 10-23-2024 Estimated GFR (MDRD) Amer 77 mL/min >60 [facility] Comment on above: GFR Calc Free T3on 10-23-2024 Free T3 [Mass/Vol] 2.2 pg/mL Normal 2.18-3.98 [facility] Comment on above: Performed By: #### L 3300.0960, L100.0100, L500.4050, L501.2450, L501.5200, L501.49726, L501.9520, L506.0400 ####[facility] [address] [place], [address] Free [id number] By: Estefany maher on 10-23-2024 Free Triiodothyronine (T3) pg/dL 2.2 pg/mL 2.18-3.98 [facility] Gastroenterology Visit Repor ton 10-23-2024 Gastroenterology Visit Report [facility] [address] [place] [address] OFFICE VISIT Date of Service: 10/23/24 MR#: [id number] Acct: [id number] Name: HALLIE GUZMAN Rep #: [id number] : 1950 Provider: ERIC Long Age/Sex: 74/F Location: [facility] Status: Signed Intake Vital Signs 04/05/24 13:19 09/09/24 11:55 Height 5 ft 4 in 5 ft 4 in Intake Visit Reasons: 6 M FU Chief Complaint: f/u Allergies Sulfa (Sulfonamide Antibiotics) Allergy (Intermediate, Verified 09/09/24 11:51) Other atorvastatin (From Lipitor) Allergy (Mild, Verified 09/09/24 11:51) itching adhesive tape Adverse Reaction (Verified 09/09/24 11:51) Rash Medications ???Medication ???Instructions ???Recorded ???Confirmed ???Type albuterol sulfate 90 mcg/actuation 2 puff inhalation Q4H PRN Sob /Or 10/11/17 09/09/24 History aerosol inhaler Wheezing cholecalciferol (vitamin D3) 50 4,000 unit PO QDAY 10/11/17 09/09/24 History mcg (2,000 unit) capsule levothyroxine 50 mcg tablet 88 mcg PO DAILY 06/06/18 09/09/24 History aspirin 81 mg tablet,delayed 81 mg PO DAILY #30 tabs 03/17/24 09/09/24 Rx release (Adult Aspirin Regimen) pantoprazole 40 mg tablet,delayed 40 mg PO DAILY PRN GERD 03/17/24 09/09/24 History release rosuvastatin 20 mg tablet 40 mg PO QHS 05/15/24 09/09/24 History estradiol 0.01% (0.1 mg/gram) 1 appful vaginal PRN 06/11/24 09/09/24 History vaginal cream methylprednisolone 4 mg tablets in See Rx Instructions PO PER PKG DIR 09/09/24 09/09/24 Rx a dose pack (Medrol (Amado)) #21 tabs Have you fallen in the past year?: No Nurse's Note: OV 10.23.24 Pt here for f/u. Pt reports constipation, abdominal pain and heartburn. Pt denies n/v/d and bloody stools. Continues taking pantoprazole daily. [facility] Medical History (Updated 10/23/24 @ 10:33 by ERIC Long) Acute otitis externa of right ear URI (upper respiratory infection) Wears glasses Post-menopausal Thyroid disease Low platelet count History of hiatal hernia Gastric reflux Non-smoker History of echocardiogram History of stress test Cardiology follow-up encounter History of irregular heartbeat Neuropathy Essential tremor RLS (restless legs syndrome) Hypothyroidism Essential hypertension Fatty liver COVID-19 UTI (urinary tract infection) Trochanteric bursitis of right hip Thrombocytopenia IBS (irritable bowel syndrome) GERD (gastroesophageal reflux disease) Esophagitis Diverticulosis Cyst of left kidney Surgical History S/P hysterectomy S/P cholecystectomy S/P hernia repair ( 01/14/19) S/P appendectomy S/P colectomy Family History Father Heart disease Mother Heart disease Hypertension Thyroid disorder CVA (cerebral vascular accident) Brother Heart disease Brother Heart disease Other IBS (irritable bowel syndrome) Social History Smoking Status: Never smoker alcohol intake: current alcohol intake frequency: holidays/special occasions only substance use type: does not use caffeine: Yes what type of physical activity do you participate in: walking seatbelt use: always do you feel safe at home: Yes additional social history: - Luis Patient and are both retired HPI HPI Chief Complaint: f/u Details: HALLIE GUZMAN, is a 74 F who presents to the office today for f/u. Prior workup: ? EGD/colonoscopy 05.30.20 [facility] EGD erythematous duodenopathy ? Colonoscopy diverticulosis ? Small bowel Xray 12.29.20 without acute/chronic finding ? Acute abd series 10.24.20 without acute/chronic finding ? CT abd/pel 03.27.21 hepatic steatosis; small hiatal hernia *BGI established 07.02.22 with epigastric pain and nausea occurring intermittently throughout the week for the last year; PPI used. ENT follows with laryngoscopy performed noting erythematous esophagus. Constipation managed with MiraLAX and benefiber with positive results. Reports colonic resection 2018 to address sigmoid stricture causing obstruction and high perforation risk. ? Biochemical 07.02.22 CBC (plt L116), ESR, CMP, CRP, LDH, GAME, VICKY comp, ANCA (apANCA H1:20), ZABRINA, celiac, IBD without pertinent abnormality.? FIB4 1.45 ? AST [id number] 0.2 ? GET 07.25.22 WNL OV 12.1 (more content not included)... Normal [facility] Glomerular filtration rate ( GFR) estimationOrdered By: Estefany Huerta on 10-23-2024 Estimated GFR (MDRD) Non-Af Amer 63 mL/min >60 [facility] Comment on above: Non- GFR Calc Glucose measurementOrdered B y: Estefany Huerta on 10-23-2024 Glucose [Mass/Vol] 111 mg/dL High 74-106 [facility] Comment on above: Fasting Glucose resu lt from 100 to 125 mg/dL suggests IMPAIRED HOMEOSTASIS per A.D.A. criteria. Hematocrit Auto (Bld) [Volum e fraction]Ordered By: Estefany Huerta on 10-23-2024 Hematocrit (Bld) [Volume fraction] 47.0 % 37-47 [facility] Hemoglobin measurementOrdere d By: Estefany Huerta on 10-23-2024 Hemoglobin (Bld) [Mass/Vol] 15.6 g/dL High 12.0-15.0 [facility] Immature granulocytes/100 WB C Auto (Bld)Ordered By: Estefany Huerta on 10-23-2024 Immature granulocytes/100 WBC (Bld) 0.200 % 0.0-0.9 [facility] Comment on above: IG% - Immature Granu locytes (promyelocytes, myelocytes and metamyelocytes) > 1% indicates that a LEFT SHIFT is Present. Laboratory - Chemistry and C hemistry - challengeOrdered By: Estefany Huerta on 10-23-2024 AST [Catalytic activity/Vol] 10 U/L Low 15-37 [facility] Lipaseon 10-23-2024 Lipase [Catalytic activity/Vol] 29 U/L Normal 13-75 [facility] Comment on above: Result Comment: Elmo duran note: LIPASE revised reference range effective 23. New Lipase methodology. Expected to produce lower values than the previous assay method. NEW Reference Range: 13 - 75 U/L Performed By: #### L 3300.0960, L100.0100, L500.4050, L501.2450, L501.5200, L501.68085, L501.9520, L506.0400 #### [facility] Laboratory [facility] [address] [place], [place], [id number] Lipase measurementOrdered By : Estefany Huerta on 10-23-2024 Lipase [Catalytic activity/Vol] 29 U/L 13-75 [facility] Comment on above: Please note:LIPASE r evised reference range effective 23. New Lipase methodology. Expected to produce lower values than the previous assay method. NEW Reference Range: 13 - 75 U/L Lymphocytes Auto (Unsp spec) [#/Vol]Ordered By: Estefany Huerta on 10-23-2024 Lymphocytes (Bld) [#/Vol] 1.11 10*3/uL 0.83-4.51 [facility] Lymphocytes/100 WBC Auto (Un sp spec)Ordered By: Estefany Huerta on 10-23-2024 Lymphocytes/100 WBC (Bld) 20.1 % 19-41 [facility] MCV (mean corpuscular volume ) determinationOrdered By: Estefany Huerta on 10-23-2024 MCV (RBC) [Entitic vol] 91.4 fL 81-99 [facility] Magnesiumon 10-23-2024 Magnesium [Mass/Vol] 2.2 mg/dL Normal 1.6-2.6 [facility] Comment on above: Performed By: #### L 3300.0960, L100.0100, L500.4050, L501.2450, L501.5200, L501.02285, L501.9520, L506.0400 ####[facility] [id number] [place], [address] Magnesium measurementOrdered By: Estefany Huerta on 10-23-2024 Magnesium [Mass/Vol] 2.2 mg/dL 1.6-2.6 [facility] Mean corpuscular hemoglobin (MCH) determinationOrdered By: Estefany Huerta on 10-23-2024 MCH (RBC) [Entitic mass] 30.4 pg 27.0-32.0 [facility] Mean corpuscular hemoglobin concentration (MCHC) determinationOrdered By: Estefany Huerta on 10-23-2024 MCHC (RBC) [Mass/Vol] 33.2 g/dL 32-36 [facility] Mean platelet volume determi nationOrdered By: Estefany Huerta on 10-23-2024 Platelet mean volume (Bld) [Entitic vol] 11.6 fL 6.2-12.0 [facility] Monocyte percentageOrdered B y: Estefany Huerta on 10-23-2024 Monocytes/100 WBC (Bld) 10.5 % High 0-10 [facility] Neutrophil percentageOrdered By: Estefany Huerta on 10-23-2024 Neutrophils/100 WBC (Bld) 65.4 % 47-70 [facility] Nucleated red blood cell per centageOrdered By: Estefany Huerta on 10-23-2024 Nucleated RBC/100 WBC (Bld) [Ratio] 0 % 0-5 [facility] Platelet countOrdered By: Elizabeth Huerta on 10-23-2024 Platelets (Bld) [#/Vol] 116 10*3/uL Low 150-450 [facility] Potassium measurementOrdered By: Estefany Huerta on 10-23-2024 Potassium [Moles/Vol] 3.6 mmol/L 3.5-5.1 [facility] RBC Auto (Bld) [#/Vol]Ordere d By: Estefany Huerta on 10-23-2024 RBC (Bld) [#/Vol] 5.14 10*6/uL 4.2-5.4 [facility] Serum anion gap measurementO rdered By: Estefany Huerta on 10-23-2024 Anion gap [Moles/Vol] 5 mmol/L 5-15 [facility] Serum globulin measurementOr dered By: Estefany Huerta on 10-23-2024 Globulin (S) [Mass/Vol] 3.1 g/dL 2.2-4.2 [facility] Serum or plasma alanine alonzo otransferase (ALT) measurementOrdered By: Estefany Huerta on 10-23-2024 ALT [Catalytic activity/Vol] 23 U/L 13-56 [facility] Serum or plasma albumin josette urement (mass/volume)Ordered By: Estefany Huerta on 10-23-2024 Albumin [Mass/Vol] 3.6 g/dL 3.2-5.0 [facility] Serum or plasma alkaline hellen sphatase measurementOrdered By: Estefany Huerta on 10-23-2024 ALP [Catalytic activity/Vol] 98 U/L 45-117 [facility] Serum or plasma calcium josette urement (mass/volume)Ordered By: Estefany Huerta on 10-23-2024 Calcium [Mass/Vol] 10.3 mg/dL High 8.5-10.1 [facility] Serum or plasma creatinine m easurement (mass/volume)Ordered By: Estefany Huerta on 10-23-2024 Creatinine [Mass/Vol] 0.92 mg/dL 0.55-1.02 [facility] Comment on above: The validity of the calculated GFR & GFRAA in patients over 70 years has not been determined. Clinical correlation is essential. Serum or plasma urea nitroge n measurement (mass/volume)Ordered By: Estefany Huerta on 10-23-2024 Urea nitrogen [Mass/Vol] 21 mg/dL High 7-18 [facility] Sodium levelOrdered By: Meet Huerta on 10-23-2024 Sodium [Moles/Vol] 142 mmol/L 136-145 [facility] T4 Free Directon 10-23-2024 T4 FREE DIRECT 1.42 ng/dL Normal 0.76-1.46 [facility] Comment on above: Performed By: #### L 3300.0960, L100.0100, L500.4050, L501.2450, L501.5200, L501.26348, L501.9520, L506.0400 ####[facility] [id number] [place], [place], [id number] TSH QnOrdered By: Estefany quansov on 10-23-2024 Thyroid Stimulating Hormone (TSH) 1.350 uIU/mL 0.358-3.740 [facility] Thyroid Stim Hormone (TSH)on 10-23-2024 TSH 1.350 uIU/mL Normal 0.358-3.740 [facility] Comment on above: Performed By: #### L 3300.0960, L100.0100, L500.4050, L501.2450, L501.5200, L501.54909, L501.9520, L506.0400 ####[facility] [id number] [place], [address] Total proteinOrdered By: Isela Huerta on 10-23-2024 Protein [Mass/Vol] 6.7 g/dL 6.4-8.2 [facility] White blood cell (WBC) count Ordered By: Estefany Huerta on 10-23-2024 WBC (Bld) [#/Vol] 5.5 10*3/uL 4.4-11.0 [facility] Urgent Care Visit Reporton 1 11-10-2023 Urgent Care Visit Report [facility] [address], [address] [place], [place] [address] OFFICE VISIT Date of Service: 09/09/24 MR#: [id number] Acct: [id number] Name: HALLIE GUZMAN Rep #: [id number] : 1950 Provider: ERIC Burgess Age/Sex: 74/F Location: [facility] Status: Signed Intake Vital Signs 06/15/24 06:21 09/09/24 11:55 Height 5 ft 4 in 5 ft 4 in Weight: 155 lb BMI 26.6 BP 124/80 H Position Sitting Pulse 74 Temp 97.9 F Temp Source Oral Pulse Oximetry (%) 98 Oxygen Delivery Method room air Intake Visit Reasons: EAR PAIN Accompanied by: Self Allergies Sulfa (Sulfonamide Antibiotics) Allergy (Intermediate, Verified 09/09/24 11:51) Other atorvastatin (From Lipitor) Allergy (Mild, Verified 09/09/24 11:51) itching adhesive tape Adverse Reaction (Verified 09/09/24 11:51) Rash Medications ???Medication ???Instructions ???Recorded ???Confirmed ???Type albuterol sulfate 90 mcg/actuation 2 puff inhalation Q4H PRN Sob /Or 10/11/17 09/09/24 History aerosol inhaler Wheezing cholecalciferol (vitamin D3) 50 4,000 unit PO QDAY 10/11/17 09/09/24 History mcg (2,000 unit) capsule levothyroxine 50 mcg tablet 88 mcg PO DAILY 06/06/18 09/09/24 History aspirin 81 mg tablet,delayed 81 mg PO DAILY #30 tabs 03/17/24 09/09/24 Rx release (Adult Aspirin Regimen) gabapentin 600 mg tablet 300 mg PO QHS 03/17/24 09/09/24 History pantoprazole 40 mg tablet,delayed 40 mg PO DAILY PRN GERD 03/17/24 09/09/24 History release rosuvastatin 20 mg tablet 40 mg PO QHS 05/15/24 09/09/24 History estradiol 0.01% (0.1 mg/gram) 1 appful vaginal PRN 06/11/24 09/09/24 History vaginal cream methylprednisolone 4 mg tablets in See Rx Instructions PO PER PKG DIR 09/09/24 09/09/24 Rx a dose pack (Medrol (Amado)) #21 tabs [id number] ocort 3.5 4 drp otic (ear) TID 10 days #10 mL 09/09/24 09/09/24 Rx mg-10,000 unit/mL-1 % ear drops,susp Have you fallen in the past year?: No Nurse's Note: Patient has a cold for about a week and now she is having Rt ear pain. [facility] Medical History (Updated 09/09/24 @ 12:06 by Gus REYES, PA) Acute otitis externa of right ear URI (upper respiratory infection) Wears glasses Post-menopausal Thyroid disease Low platelet count History of hiatal hernia Gastric reflux Non-smoker History of echocardiogram History of stress test Cardiology follow-up encounter History of irregular heartbeat Neuropathy Essential tremor RLS (restless legs syndrome) Hypothyroidism Essential hypertension Fatty liver COVID-19 UTI (urinary tract infection) Trochanteric bursitis of right hip Thrombocytopenia IBS (irritable bowel syndrome) GERD (gastroesophageal reflux disease) Esophagitis Diverticulosis Cyst of left kidney Surgical History S/P hysterectomy S/P cholecystectomy S/P hernia repair ( 01/14/19) S/P appendectomy S/P colectomy Family History Father Heart disease Mother Heart disease Hypertension Thyroid disorder CVA (cerebral vascular accident) Brother Heart disease Brother Heart disease Other IBS (irritable bowel syndrome) Social History Smoking Status: Never smoker alcohol intake: current alcohol intake frequency: holidays/special occasions only substance use type: does not use caffeine: Yes what type of physical activity do you participate in: walking seatbelt use: always do you feel safe at home: Yes additional social history: - Luis Patient and are both retired HPI HPI Details: HALLIE GUZMAN, is a 74 F who presents to the office today for 1 week history of nasal congestion with clear rhinorrhea and new onset approximately 24-hour history of progressively worsening right external ear pain with tender to palpation of the same. No complaints of fever, chills, sweats appreciated by patient nor complaints of lightheadedness or dizziness or nausea/vomiting. No complaints of chest pressure/shortness of breath/dyspnea on exertion. Non-smoker. No close contacts with similar complaints. No other associated symptoms and no other alleviating/aggravating factors. ROS Const Constitutional: No other (as above) Exam Const General: cooperative, healthy appearing and no acute distress Orientation: alert and awake HENMT Head: normal to inspection Ears: hearing grossly normal bilaterally, external ears normal, TM's normal bilaterally, EAC's normal (left only) and EAC abnormal erythema on the right, edema on the right and EAC tenderness on the right Nose: external nose normal, nares normal, septum normal and nasal discharge clear Face and sinu (more content not included)... [facility] Visit (NRMDN) HALLIE GUZMAN ([id number]) 1950 F Date Time Provider Department 04/01/24 3:00 PM CASH LAMA During your visit today, we recorded the following information about you: Pulse Blood pressure Weight 63/minute 131/83 73.3 kg Cash Lama MD 04/01/2024 3:21 PM Signed It was a pleasure to see you today. We addressed the following diagnoses: Essential tremor Rls (restless legs syndrome) My recommendations are as follows: Continue your medications as you have been taking them. We are not making any changes today. If you feel you are not tolerating them or your symptoms are changing before your next appointment, please feel free to send me a [employer] message or contact the office Try melatonin for sleep. Start with 3 mg at bedtime and increase as needed and tolerated every few days. No more than 9-12 mg per day. If there are any concerns before your next visit, please call or you can send a message through [employer]. You can also now schedule and select appointments through [employer]. MD Daina Hargrove Kristin, MD 04/03/2024 12:44 PM Signed [facility] - FOLLOW UP EVALUATION Cash Arias DO [address] [address] [facility] [address] Dear Cash Arias DO: I had the pleasure of seeing Ms. Guzman for follow-up today. As you know she is a 73 year old right-handed female with a history of ET, RLS, neuropathy since years . She is seen alone. Subjective Previous Plan-08/01/2023 Visit: - Try reducing gabapentin to 300 mg at bedtime for at least 1 week. If legs feel ok then you can try going off it. If unable to continue off it continue with 300 mg or 600 mg depending on your response. - Consider trying magnesium: Magnesium can help with sleep, relaxation, headaches, mood, and RLS and can keep stools regular. If you have regular bowel movements or constipation, try Mg Citrate (best absorbed), Mg Oxide (best for constipation) or Mg Malate. If you are diarrhea prone, try Mg Glycinate or Mg Taurate. Calm, Pure Encapsulation, Social[employer] research are reliable brands. Dose 250-300 mg and up to 900-1000mg. Would not go beyond 1200 mg. With any supplements or medications, if you develop any rashes, swelling, difficulty breathing or any other concerning symptom please seek immediate medical attention. Nonmedical therapy for restless legs syndrome includes: cold/warm compresses, warm/hot baths or showers, gentle massage, mild leg stretching at nighttime, magnesium supplements (500mg-1000mg). Mentally alerting activities help too. Note that caffeine, alcohol, antidepressants, antinausea medications and antihistamines can cause or worsen symptoms. Interval History: RLS is manageable. On gabapentin 300 mg. Some nights doesn't sleep well but not primarily because of the legs. No help with magnesium. Melatonin didn't help. Tremor is a little worse. Affects drinking, eating. Manageable. Movement Disorders Medications Schedule - as of the start of the visit: Medications Other Movement Disorder Prior Therapies Gabapentin Questionnaires: In addition, the following activities of daily living that may be affected by tremors were evaluated: Speaking: Not affected Feeding: Not affected Bringing Liquids to Mouth: Not affected Hygiene: Not affected Dressing: Not affected Writing: Affected (mild) Working: n/a Number of falls in the Last Month: none Mood/Behavior Depression: PHQ-9 Score: 2 usually representing no significant (0-4) depression. Anxiety: Finally, the following table shows the patient's overall global physical and mental health using the PROMIS scale: PROMIS-10 Flowsheet Row Office Visit from 04/01/2024 in Neurology Office Visit from 08/01/2023 in Neurology Global Physical Health T Score 50.8 50.8 Global Mental Health T Score 48.3 48.3 0-10 Standard Pain Scale 5 5 *PROMIS-10 scoring scale: mean = 50, over 50 is above average, under 50 is below average ALLERGIES Allergen Reactions Sulfamethoxazole Other: See Comments Very shaky Lipitor [Atorvastat* Myalgia Current Outpatient Medications Medication Sig simvastatin (ZOCOR) [...] cap Take 1 capsule by mouth once da (more content not included)... Normal [facility] Basophil percentageOrdered B y: Bridger Lanier on 12-17-2023 Creatinine [Mass/Vol] 1.0 mg/dL 0.55-1.02 [facility] - Chemistry and C hemistry - challengeOrdered By: Bridger Lanier on 12-17-2023 GFR/1.73 sq M.predicted among non-blacks MDRD (S/P/Bld) [Vol rate/Area] 55.0000 mL/min/{1.73_m2} >60 [facility] Erythrocyte sedimentation ra teOrdered By: Bridger Lanier on 10-24-2023 ESR (Bld) [Velocity] 1 mm/h 0-30 [facility] No Panel InformationOrdered By: Bridger Lanier on 10-24-2023 C-Reactive Protein Extended Range 3.47 mg/L 0.0-3.0 [facility] Comment on above: C-Reactive Protein ( CRP) provides useful information for thediagnosis, therapy and monitoring of inflammatory processesand associated diseases. For the evaluation of Relative Riskfor Cardiovascular Disease, a High Sensitivity CRP (HSCRP)should be ordered. Serum or plasma gastrin josette urement (mass/volume)Ordered By: Bridger Lanier on 10-24-2023 Gastrin [Mass/Vol] 36 pg/mL 0-115 [facility] Comment on above: Siemens Immulite 200 0 Immunochemiluminometric assay (ICMA)Values obtained with different assay methods or kits cannotbe used interchangeably. Results cannot be interpreted asabsolute evidence of the presence or absence of malignantdisease.Performed at: - [address] [id number] Director: Bartolo Camacho MD, Phone: [phone] No Panel Informationon 10-19 Influenza Types A,B Rapid (Clinic) Negative [facility] POC SARS CoV-2 Antigen Negative [facility] Helicobacter pylori breath t est in pediatric patientOrdered By: Ella Turk on 09-04-2023 CO2 post dose urea Ql (Exhl gas) Negative Negative [facility] Comment on above: Performed at: - L [address] [id number] Director: Camron Tay PhD, Phone: [phone] Absolute lymphocyte countOrd ered By: Sarah Huynh on 08-07-2023 Lymphocytes Auto (Unsp spec) [#/Vol] 1.31 10*3/uL 0.83-4.51 [facility] Basophil percentageOrdered B y: Sarah Hinojosajack on 08-07-2023 Basophils/100 WBC (Bld) 0.9 % 0-1 [facility] Bilirubin [Mass/Vol] 0.40 mg/dL 0.20-1.00 [facility] Comment on above: For patients on eltr ombopag therapy, use of Dimension [place] TBIL is not recommended. Chloride [Moles/Vol] 109 mmol/L 98-107 [facility] Cholesterol [Mass/Vol] 194 mg/dL <200 [facility] Comment on above: <200 mg/dL Desirable 200-240 mg/dL Borderline >240 mg/dL High Risk Eosinophils/100 WBC (Bld) 3.6 % 0-5 [facility] Glucose [Mass/Vol] 89 mg/dL 74-106 [facility] Neutrophils (Bld) [#/Vol] 3.3 10*3/uL 2.0-7.7 [facility] Neutrophils/100 WBC (Bld) 59.3 % 47-70 [facility] Potassium [Moles/Vol] 3.8 mmol/L 3.5-5.1 [facility] Protein [Mass/Vol] 6.3 g/dL 6.4-8.2 [facility] Sodium [Moles/Vol] 142 mmol/L 136-145 [facility] Triglyceride [Mass/Vol] 125 mg/dL <199 [facility] Comment on above: The drugs N-Acetylcy steine and Metamizole may falsely depress this assay.Serum Triglycerides Reference Interval Normal <150 mg/dL Borderline high 150 - 199 mg/dL High 200 - 499 mg/dL Very High > or = 500 mg/dL WBC (Bld) [#/Vol] 5.5 10*3/uL 4.4-11.0 [facility] Blood erythrocytes count (nu mber/volume)Ordered By: Sarah Huynh on 08-07-2023 RBC (Bld) [#/Vol] 5.04 10*6/uL 4.2-5.4 [facility] Blood hemoglobin measurement (mass/volume)Ordered By: Sarah Huynh on 08-07-2023 Hemoglobin (Bld) [Mass/Vol] 15.2 g/dL 12.0-15.0 [facility] Blood lymphocytes/100 leukoc ytesOrdered By: Sarah Huynh on 08-07-2023 Lymphocytes/100 WBC (Bld) 23.8 % 19-41 [facility] Blood monocytes/100 leukocyt esOrdered By: Sarah Huynh on 08-07-2023 Monocytes/100 WBC (Bld) 12.0 % 0-10 [facility] Blood platelet mean volumeOr dered By: Sarah Huynh on 08-07-2023 Platelet mean volume (Bld) [Entitic vol] 11.0 fL 6.2-12.0 [facility] Determination of erythrocyte mean corpuscular volume (MCV)Ordered By: Sarah Huynh on 08-07-2023 MCV (RBC) [Entitic vol] 96.0 fL 81-99 [facility] Hematocrit Auto (Bld) [Volum e fraction]Ordered By: Sarah Huynh on 08-07-2023 Hematocrit (Bld) [Volume fraction] 48.4 % 37-47 [facility] - Chemistry and C hemistry - challengeOrdered By: Sarah Huynh on 08-07-2023 ALP [Catalytic activity/Vol] 89 U/L 45-117 [facility] ALT [Catalytic activity/Vol] 19 U/L 13-56 [facility] CO2 [Moles/Vol] 33.0 mmol/L 21.0-32.0 [facility] Globulin (S) [Mass/Vol] 2.9 g/dL 2.2-4.2 [facility] Urea nitrogen/Creatinine [Mass ratio] 23.7 mg/mg 10-20 [facility] - Hematology and Cell countsOrdered By: Sarah Huynh on 08-07-2023 Erythrocyte distribution width (RBC) [Entitic vol] 47.6 fL 35.1-43.9 [facility] Erythrocyte distribution width (RBC) [Ratio] 13.4 % 11.6-14.6 [facility] Immature granulocytes/100 WBC (Bld) 0.400 % 0.0-0.9 [facility] Comment on above: IG% - Immature Granu locytes (promyelocytes, myelocytes and metamyelocytes) > 1% indicates that a LEFT SHIFT is Present. MCH (RBC) [Entitic mass] 30.2 pg 27.0-32.0 [facility] Nucleated RBC/100 WBC (Bld) [Ratio] 0 % 0-5 [facility] MCHC Auto (RBC) [Mass/Vol]Or dered By: Sarah Huynh on 08-07-2023 MCHC (RBC) [Mass/Vol] 31.4 g/dL 32-36 [facility] No Panel InformationOrdered By: Sarah Huynh on 08-07-2023 Estimated GFR (MDRD) Amer 76 mL/min >60 [facility] Comment on above: GFR Calc Estimated GFR (MDRD) Non-Af Amer 63 mL/min >60 [facility] Comment on above: Non- GFR Calc Thyroid Stimulating Hormone (TSH) 2.93 uIU/mL 0.358-3.74 [facility] Platelets bldOrdered By: Maximiliano Huynh on 08-07-2023 Platelets (Bld) [#/Vol] 120 10*3/uL 150-450 [facility] Serum or plasma albumin josette urement (mass/volume)Ordered By: Sarah Huynh on 08-07-2023 Albumin [Mass/Vol] 3.4 g/dL 3.2-5.0 [facility] Serum or plasma albumin/glob ulin mass ratioOrdered By: Sarah Huynh on 08-07-2023 Albumin/Globulin [Mass ratio] 1.2 {ratio} 0.9-2.4 [facility] Serum or plasma calcium josette urement (mass/volume)Ordered By: Sarah Huynh on 08-07-2023 Calcium [Mass/Vol] 9.4 mg/dL 8.5-10.1 [facility] Serum or plasma cholesterol in HDL measurement (mass/volume)Ordered By: Sarah Huynh on 08-07-2023 Cholesterol in HDL [Mass/Vol] 43 mg/dL >40 [facility] Comment on above: The drugs N-Acetylcy steine and Metamizole may falsely depress this assay. Reference Range HDL <40 mg/dL Low HDL Cholesterol HDL >or= 60 mg/dL High HDL Cholesterol Serum or plasma cholesterol in VLDL measurement (mass/volume)Ordered By: Sarah Huynh on 08-07-2023 Cholesterol in VLDL [Mass/Vol] 25 mg/dL 5-40 [facility] Serum or plasma creatinine m easurement (mass/volume)Ordered By: Sarah Huynh on 08-07-2023 Creatinine [Mass/Vol] 0.93 mg/dL 0.55-1.02 [facility] Comment on above: The validity of the calculated GFR & GFRAA in patients over 70 years has not been determined. Clinical correlation is essential. Serum or plasma low density lipoprotein (LDL) cholesterol measurement (mass/volume)Ordered By: Sarah Huynh on 08-07-2023 Cholesterol in LDL [Mass/Vol] 126 mg/dL 0-130 [facility] Serum or plasma urea nitroge n measurement (mass/volume)Ordered By: Sarah Huynh on 08-07-2023 Urea nitrogen [Mass/Vol] 22 mg/dL 7-18 [facility] Thin prep Papanicolaou smear with manual screeningOrdered By: Sarah Huynh on 08-07-2023 Thin prep Papanicolaou smear with manual screening 8 U/L 15-37 [facility] Thin prep Papanicolaou smear with manual screening 0 5-15 [facility] - Microbiology an d Antimicrobial susceptibilityon 06-28-2023 S. pyogenes Ag IA Ql (Unsp spec) Negative [facility] CNOVon 04-08-2023 CNOV Office Visit (NEADFV ) HALLIE GUZMAN ([id number]) 1950 F Date Time Provider Department 04/08/23 10:00 AM HEATHER SNEED During your visit today, we recorded the following information about you: Pulse Blood pressure Weight Height 92/minute 127/82 74.5 kg 1.626 m Heather Sneed MD 04/08/2023 10:40 AM Signed [facility] General Neurology Follow up/ Established patient visit Individuals who were included in, or assisted with the encounter were: Hallie Falk Thomas Sneed MD Chief Complaint/Issues: Hallie Guzman is a 72 year old R handed female w PMH HTN, HLP, hypothyroidism, seen in the [facility] for General Neurology for: RLS, essential tremor and neuropathy Most Recent Neurological Assessment and Plan: Last Filed Values Date of Most Recent Assessment and Plan 12/24/22 Specialty General Neurology Assessment Hallie Guzman is a 72 year old R handed female w PMH HTN, HLP, hypothyroidism, seen in the [facility] for General Neurology for: 1. RLS, essential [...] not on aspirin. She will see a capsule machine operator next week. RF, ANTONETTE, MMA, copper, syphilis, [...] 127/82 Pulse 92 Ht 162.6 cm (5' 4) Wt 74.5 kg (164 lb 4.8 oz) [...] normal. Assessment AND Plan 04/08/2023 - General NeurologyHeather MD ASSESSMENT Hallie Dileep Thomas is a 72 year old R handed female w PMH HTN, HLP, hypothyroidism, seen in the [facility] for General Neurology for: 1. RLS, es (more content not included)... Normal [facility] 04-08-2023 CNPN Telephone (NEADFV) THOMASHALLIE Dileep ([id number]) 1950 F Date Time Provider Department 04/08/23 HEATHER SNEED During your visit today, we recorded the following information about you: Edyta Membreno 04/08/2023 3:20 PM Signed Received fax from [facility] with Carotid Duplex Scan dated 01/10/23. Scanned into [employer]. Prabha Mai RN 04/08/2023 4:03 PM Signed Carotid Duplex study results in scanned documents for your review. Allergies As of Date: 04/08/2023 Noted Allergy Reaction LIPITOR (ATORVASTATIN CALCIUM) 12/17/2006 Comments: myalgia SULFAMETHOXAZOLE 11/01/2020 14 - Other: See Comments Comments: Very Shaky Date Reviewed: 04/08/2023 Reviewed by: Keiry Boyle MA - Fully Assessed Reason for Visit: Received Outside Medical Records [[id number]] Prescriptions as of 06/13/2023 - gabapentin (NEURONTIN) 300 mg capsule Take 1 capsule by mouth daily at bedtime. - propranolol ER (INDERAL LA) 60 mg 24 hr capsule Take 1 capsule by mouth once daily. - Alpha Lipoic Acid 200 mg tab [...] tablet by mouth three times daily. - levothyroxine (LEVOXYL) 88 mcg tablet Take [...] 4 weeks Problem List As Of Date 04/08/2023 Noted Resolved Hyperlipidemia LDL goal <100 [E78.5] [...] extremities*04/11/2021 Polyneuropathy [G62.9] 12/24/2022 Other dietary vitamin B12 deficiency anemia [D*12/24/2022 Encounter Status:Closed by EDYTA MEMBRENO on 06/13/23 Normal [facility] Culture, urineOrdered By: Andriy Amaya on 03-14-2023 Bacteria identified Cx Nom (U) Presumptive E. coli [facility] Culture, urineOrdered By: Andriy Amaya on 03-12-2023 Bacteria identified Cx Nom (U) Presumptive E. coli [facility] A-Tocopherol Vit E SerPl-mCn con 12-24-2022 Alpha tocopherol [Mass/Vol] 26.5 mg/L High 6.0-23.0 [facility] Comment on above: Order Comment: Speci men Type: BLOOD SPECIMEN Ordering Facility: [facility] Address: [address] [phone] Performed By: #### 1 823-4 #### [facility] CLIA [id number] [address] [place] [address] [place] [address] [place] Alpha tocopherol [Mass/Vol]o n 12-24-2022 Beta+gamma tocopherol [Mass/Vol] 0.5 mg/L Normal 0.3-3.2 [facility] Comment on above: Order Comment: Gail mallory Type: BLOOD SPECIMEN Ordering Facility: [facility] Address: [address] [place], [place] [address] Result Comment: This test was developed and its performance characteristics determined by [facility]'s [facility] [place] ([facility]). It has not been cleared or approved by the FDA. [facility] is regulated under CLIA as qualified to perform high-complexity testing. This test is used for clinical purposes. It should not be regarded as investigational or for research. Performed By: #### 1 823-4 #### [facility] CLIA [id number] [address] [facility] [id number] [place] [address] OF [facility] CNOVon 12-24-2022 CNOV Office Visit (NEADFV ) HALLIE GUZMAN ([id number]) 1950 F Date Time Provider Department 12/24/22 1:30 PM HEATHER SNEED During your visit today, we recorded the following information about you: Temperature Pulse Blood pressure Weight 97.6 degrees 72/minute 139/74 72.8 kg Heather Sneed MD 12/24/2022 3:45 PM Addendum [facility] for General Neurology New Patient Evaluation Consulting Provider: SELF Individuals who were included in, or assisted with the encounter were: Hallie Sneed MD Chief Complaint/Issues: Hallie Dileep Guzman is a 72 year old R handed female w PMH HTN, HLP, hypothyroidism, seen in the [facility] for General Neurology for: RLS, essential tremor [...] General Neurology, Heather Sneed MD ASSESSMENT Hallie Guzman is a 72 year old R handed female w PMH HTN, HLP, hypothyroidism, seen in the [facility] for General Neurology for: 1. RLS, essential [...] No diagnosis found. No follow-ups on file. (more content not included)... Normal [facility] COPPER BLOODon 12-24-2022 Copper [Mass/Vol] 119 ug/dL Normal 80-155 [facility] Comment on above: Order Comment: Speci men Type: BLOOD SPECIMEN Ordering Facility: [facility] Address: [address], [place] [address] Result Comment: This test was developed and its performance characteristics determined by [facility]'s Juan [facility] [place] ([facility]). It has not been cleared or approved by the FDA. [facility] is regulated under CLIA as qualified to perform high-complexity testing. This test is used for clinical purposes. It should not be regarded as investigational or for research. Performed By: #### 5 0190-8, 2284-8 #### [facility] CLIA [id number] [address] [place] [address] [place] Centromere Ab IF Ql (S)on Centromere Ab Qn (S) <0.2 Normal <1.0 [facility] Comment on above: Order Comment: Speci men Type: URINE SPECIMEN Ordering Facility: [facility] Address: [address] [place] [address] Result Comment: Anti -centromere antibody is used as in aid in diagnosis of systemic sclerosis. Clinical correlation is required. Test Methodology: Multiplex flow immunoassay. Performed By: #### L [id number] #### [facility] CLIA [id number] [address] [place] [address] [place] CENTROMERE AB QUAL Negative Normal Negative [facility] Comment on above: Order Comment: Speci men Type: URINE SPECIMEN Ordering Facility: [facility] Address: [address] [place] [address] Performed By: #### L [id number] #### [facility] CLIA [id number] [address] [place] [address] [place] Chromatin Ab Qnon 12-24-2022 CHROMATIN AB QUAL Negative Normal Negative [facility] Comment on above: Order Comment: Speci men Type: URINE SPECIMEN Ordering Facility: [facility] Address: [address] [address] Performed By: #### L [id number] #### [facility] CLIA [id number] [address] [place] [address] [place] Chromatin Ab SerPl-aCncon Chromatin Ab Qn <0.2 Normal <1.0 [facility] Comment on above: Order Comment: Speci men Type: URINE SPECIMEN Ordering Facility: [facility] Address: [address] [address] Result Comment: Test Methodology: Multiplex flow immunoassay. Performed By: #### L [id number] #### [facility] CLIA [id number] [address] [place] [address] [place] ANTONETTE Jo1 Ab Ser-aCncon 2022 Dara-1 extractable nuclear Ab Qn (S) <0.2 Normal <1.0 [facility] Comment on above: Order Comment: Speci men Type: URINE SPECIMEN Ordering Facility: [facility] Address: [address] [place] [address] Performed By: #### L [id number] #### [facility] [place] [id number] [address] [place] [address] [place] ANTONETTE [facility] Ab Ser-aCncon 2022 Ribonucleoprotein extractable nuclear Ab Qn (S) <0.2 Normal <1.0 [facility] Comment on above: Order Comment: Speci men Type: URINE SPECIMEN Ordering Facility: [facility] Address: [address] [place] [address] Performed By: #### L [id number] #### [facility] CLIA [id number] [address] [place] [address] [place] ANTONETTE SM IgG Ser-aCncon 2022 Roberts extractable nuclear IgG Qn (S) <0.2 Normal <1.0 [facility] Comment on above: Order Comment: Speci men Type: URINE SPECIMEN Ordering Facility: [facility] Address: [address] [address] Performed By: #### L [id number] #### [facility] CLIA [id number] [address] [place] [address] [place] ANTONETTE SS-A Ab Ser-aCncon 12-24 Sjogrens syndrome-A extractable nuclear Ab Qn (S) <0.2 Normal <1.0 [facility] Comment on above: Order Comment: Speci men Type: URINE SPECIMEN Ordering Facility: [facility] Address: [address] [address] Result Comment: Test Methodology: Multiplex flow immunoassay. Performed By: #### L [id number] #### [facility] CLIA [id number] [address] [place] [address] [place] ANTONETTE SS-B Ab Ser-aCncon 12-24 Sjogrens syndrome-B extractable nuclear Ab Qn (S) <0.2 Normal <1.0 [facility] Comment on above: Order Comment: Speci men Type: URINE SPECIMEN Ordering Facility: [facility] Address: [address] [place] [address] Result Comment: Anti -SSB (anti-La) antibody is used as an aid in diagnosis of a variety of systemic autoimmune diseases, especially for Sjogren's syndrome and systemic lupus erythematosus. Clinical correlation is required. Test Methodology: Multiplex flow immunoassay. Performed By: #### L [id number] #### [facility] CLIA [id number] [address] [place] [address] [place] FOLATE SERUMon 12-24-2022 Folate [Mass/Vol] 10.5 ng/mL >4.7 ng/mL [facility] Folate SerPl-mCncon 12-25-19 Folate [Mass/Vol] 10.5 ng/mL Normal >4.7 [facility] Comment on above: Order Comment: Speci men Type: BLOOD SPECIMEN Ordering Facility: [facility] Address: [address] [place] [address] Performed By: #### 5 0190-8, 2284-8 #### [facility] CLIA [id number] [address] [place] [address] [place] HIV 1+2 Ab IA Qlon 3 HIV 1 and 2 Ab IA.rapid Nom Normal [facility] Comment on above: Order Comment: Speci men Type: BLOOD SPECIMEN Ordering Facility: [facility] Address: [address] [place] [address] Result Comment: Test not indicated. Performed By: #### 3 1201-7, 81240-8 #### [facility] CLIA [id number] [facility] [place] [address] [place] HIV 1+2 Ab+HIV1 p24 Ag IA Ql Non-Reactive Normal Nonreactive [facility] Comment on above: Order Comment: Speci men Type: BLOOD SPECIMEN Ordering Facility: [facility] Address: [address] [place] [address] Performed By: #### 3 1201-7, 39976-5 #### [facility] CLIA [id number] [facility] [place] [address] [place] HIVINT Normal [facility] Comment on above: Order Comment: Speci men Type: BLOOD SPECIMEN Ordering Facility: [facility] Address: [address] [place] [address] Result Comment: No e vidence of HIV-1 or HIV-2 infection. Should recent infection be suspected, repeat testing may be considered 2-3 weeks after this draw. [place] Rev. Code 3701.243(E): This information has been disclosed to you from confidential records protected from disclosure by state law. ???You shall make no further disclosure of this information without the specific, written, and informed release of the individual to whom it pertains or as otherwise permitted by state law. A general authorization for the release of medical or other information is not sufficient for the purpose of the release of HIV test results or diagnoses. Performed By: #### 3 1201-7, 44523-3 #### [facility] CLIA [id number] [address] [place] [address] [place] Iron and Iron binding capaci ty panelon 12-24-2022 Iron [Mass/Vol] 103 ug/dL Normal 41-186 [facility] Comment on above: Order Comment: Speci men Type: BLOOD SPECIMEN Ordering Facility: [facility] Address: [address] [place] [address] Performed By: #### 5 0190-8, 2284-8 #### [facility] CLIA [id number] [address] [place] [address] [place] Iron binding capacity [Mass/Vol] 270 ug/dL Normal 232-386 [facility] Comment on above: Order Comment: Gail mallory Type: BLOOD SPECIMEN Ordering Facility: [facility] Address: [address] [address] Performed By: #### 5 0190-8, 228-8 #### [facility] CLIA [id number] [address] [place] [address] [place] Iron/TIBC [Molar ratio] 38.1 % Normal 20.0-55.0 [facility] Comment on above: Order Comment: Gail mallory Type: BLOOD SPECIMEN Ordering Facility: [facility] Address: [address] [address] Performed By: #### 5 0190-8, 8 #### [facility] CLIA [id number] [place] Iron [Mass/Vol] 103 ug/dL 41 - 186 ug/dL [facility] Iron binding capacity [Mass/Vol] 270 ug/dL 232 - 386 ug/dL [facility] Iron/TIBC [Molar ratio] 38.1 % 20.0 - 55.0 % [facility] Dara-1 extractable nuclear Ab Qn (S)on 12-24-2022 DARA 1 ANTIBODY QUAL Negative Normal Negative [facility] Comment on above: Order Comment: Gail mallory Type: URINE SPECIMEN Ordering Facility: [facility] Address: [address] [address] Result Comment: Anti -DARA-1 antibody is used as an aid in diagnosis of polymyositis and dermatomyositis especially with pulmonary involvement. A negative result cannot rule out polymyositis or dermatomyositis. Clinical correlation is required. Test Methodology: Multiplex flow immunoassay. Performed By: #### L [id number] #### [facility] CLIA [id number] [address] [facility] [place] [address] [place] Methylmalonate SerPl-sCncon 12-24-2022 Methylmalonate [Moles/Vol] 172 nmol/L Normal 79-376 [facility] Comment on above: Order Comment: Gail mallory Type: BLOOD SPECIMEN Ordering Facility: [facility] Address: [address] [address] Result Comment: This test was developed and its performance characteristics determined by [facility]'s [facility]aker [facility] [place] ([facility]). It has not been cleared or approved by the FDA. [facility] is regulated under CLIA as qualified to perform high-complexity testing. This test is used for clinical purposes. It should not be regarded as investigational or for research. Performed By: #### 1 3964-2 #### [facility] CLIA [id number] [address] [place] [address] [place] Nuclear Ab IA Ql (S)on 12-24 VICKY BY EIA, QUAL Negative Normal Negative [facility] Comment on above: Order Comment: Speci men Type: BLOOD SPECIMEN Ordering Facility: [facility] Address: [address] [place] [address] Result Comment: The qualitative antinuclear antibody screen test performed using enzyme immunoassay including the following antigens: dsDNA, histones, SS-A, SS-B, Sm, Sm/[facility], Scl-70, Dara-1, and centromeric antigens. Performed By: #### 5 0190-8, 2284-8 #### [facility] CLIA [id number] [address] [place] [address] [place] PROTEIN ELECTROPHORESIS SERU M (P)on 12-24-2022 Albumin [Mass/Vol] 4.22 g/dL Normal 3.43-5.41 [facility] Comment on above: Order Comment: Speci men Type: BLOOD SPECIMEN Ordering Facility: [facility] Address: [address] [place] [address] Performed By: #### L [id number] #### [facility] CLIA [id number] [address] [place] [address] [place] Alpha 1 globulin Elph [Mass/Vol] 0.28 g/dL Normal 0.18-0.43 [facility] Comment on above: Order Comment: Speci men Type: BLOOD SPECIMEN Ordering Facility: [facility] Address: [address] [place] [address] Performed By: #### L [id number] #### [facility] CLIA [id number] [address] [place] [address] [place] Alpha 2 globulin Elph [Mass/Vol] 0.78 g/dL Normal 0.42-0.98 [facility] Comment on above: Order Comment: Speci men Type: BLOOD SPECIMEN Ordering Facility: [facility] Address: [address] [place], [place] [address] Performed By: #### L [id number] #### [facility] CLIA [id number] [address] [place] [address] [place] Beta globulin Elph [Mass/Vol] 0.67 g/dL Normal 0.61-1.17 [facility] Comment on above: Order Comment: Speci men Type: BLOOD SPECIMEN Ordering Facility: [facility] Address: [address] [place], [place] [address] Performed By: #### L [id number] #### [facility] CLIA [id number] [address] [place] [address] [place] Gamma globulin Elph [Mass/Vol] 0.54 g/dL Normal 0.53-1.51 [facility] Comment on above: Order Comment: Speci men Type: BLOOD SPECIMEN Ordering Facility: [facility] Address: [address] [place], [place] [address] Performed By: #### L [id number] #### [facility] CLIA [id number] [address] [place] [address] [place] M-PROTEIN LOCATION Normal [facility] Comment on above: Order Comment: Speci men Type: BLOOD SPECIMEN Ordering Facility: [facility] Address: [address] [place], [place] [address] Result Comment: Not Applicable. Performed By: #### L [id number] #### [facility] CLIA [id number] [address] [place] [address] [place] Protein Fractions [Interp] No definitive M protein is identified on protein electrophoresis. Normal No definitive M protein is identified on protein electrophore sis. [facility] Comment on above: Order Comment: Speci men Type: BLOOD SPECIMEN Ordering Facility: [facility] Address: [address] [place] [address] Performed By: #### L [id number] #### [facility] CLIA [id number] [address] Protein.monoclonal Elph [Mass/Vol] 0.00 g/dL Normal <=0.00 [facility] Comment on above: Order Comment: Speci men Type: BLOOD SPECIMEN Ordering Facility: [facility] Address: [address] [place] [address] Performed By: #### L [id number] #### [facility] CLIA [id number] [address] [place] [address] OF [facility] SPE STAFF REVIEW Reviewed by Dr. Mariela Mai MD [facility] Comment on above: Order Comment: Speci men Type: BLOOD SPECIMEN Ordering Facility: [facility] Address: [address] [place], [place] [id number] Performed By: #### L [id number] #### [facility] CLIA [id number] [address] [place] [address] OF [place] Prot SerPl-mCncon 12-24-2022 Protein [Mass/Vol] 6.5 g/dL Normal 6.3-8.0 [facility] Comment on above: Order Comment: Speci men Type: BLOOD SPECIMEN Ordering Facility: [facility] Address: [address] [place], [place] [address] Performed By: #### 1 1572-5, 2885-2 #### [facility] CLIA [id number] [address] [place] [address] OF [place] Prot Ur-mCncon 12-24-2022 Protein (U) [Mass/Vol] 7 mg/dL Normal 0-[address] [facility] Comment on above: Order Comment: Speci men Type: BLOOD SPECIMEN Ordering Facility: [facility] Address: [address] [place] [address] Performed By: #### 5 0190-8, 2284-8 #### [facility] CLIA [id number] [address] [place] [address] [place] RHEUMATOID FACTOR BLon 12-24 Rheumatoid factor Qn <16 IU/mL [facility] Reagin and Treponema pallidu m IgG and IgM [Interp]on 12-24-2022 SYPHILIS INTERPRETATION Cannot exclude recent Treponemal infection if specimen collected within 7-10 days after appearance of suspect lesions or 2-3 weeks after an exposure. Clinical correlation is required. Normal [facility] Comment on above: Order Comment: Speci men Type: URINE SPECIMEN Ordering Facility: [facility] Address: [address] [place] [address] Performed By: #### L [id number] #### [facility] CLIA [id number] [address] [place] [address] [place] T. pallidum IgG+IgM IA Ql (S) Non-Reactive Normal Nonreactive [facility] Comment on above: Order Comment: Speci men Type: URINE SPECIMEN Ordering Facility: [facility] Address: [address] [place] [address] Performed By: #### L [id number] #### [facility] CLIA [id number] [address] [place] [address] [place] Rheumatoid fact SerPl-aCncon 12-24-2022 Rheumatoid factor Qn [IU]/mL Normal <16 [facility] Comment on above: Order Comment: Speci men Type: BLOOD SPECIMEN Ordering Facility: [facility] Address: [address] [place] [address] Performed By: #### 1 1572-5, 2885-2 #### [facility] CLIA [id number] [address] [place] [address] [place] Ribonucleoprotein extractabl e nuclear Ab Qn (S)on 12-24-2022 ANTI-[facility] QUAL Negative Normal Negative [facility] Comment on above: Order Comment: Speci men Type: URINE SPECIMEN Ordering Facility: [facility] Address: [address] [place] [address] Performed By: #### L [id number] #### [facility] CLIA [id number] [address] [place] [address] OF [facility] RIBOSOMAL [facility] QUAL Negative Normal Negative [facility] Comment on above: Order Comment: Speci men Type: URINE SPECIMEN Ordering Facility: [facility] Address: [address] [place] [address] Result Comment: Anti -Ribosomal RNA (Ribosomal P) antibody is used as an aid in diagnosis of systemic autoimmune diseases especially systemic lupus erythematosus and mixed connective tissue disease. Cross-reactivity with Anti-roberts antibody is not uncommon. Clinical correlation is required. Test Methodology: Multiplex flow immunoassay. Performed By: #### L [id number] #### [facility] CLIA [id number] [address] [place] [address] [place] SCL-70 extractable nuclear I gG IA Qn (S)on 12-24-2022 SCLERODERMA AB QUAL Negative Normal Negative [facility] Comment on above: Order Comment: Speci men Type: URINE SPECIMEN Ordering Facility: [facility] Address: [address] [place] [address] Performed By: #### L [id number] #### [facility] CLIA [id number] [address] [place] [address] [place] SCLERODERMA IGG AB 0.2 AI Normal <1.0 [facility] Comment on above: Order Comment: Speci men Type: URINE SPECIMEN Ordering Facility: [facility] Address: [address] [place] [address] Result Comment: Scl- 70/Scleroderma antibody test is used as an aid in diagnosis of systemic sclerosis especially the diffuse cutaneous form. A negative result cannot rule out systemic sclerosis. The final interpretation should consider clinical picture and other test results such as anti-centromere antibody. Test Methodology: Multiplex flow immunoassay. Performed By: #### L [id number] #### [facility] CLIA [id number] [address] [place] [address] [place] Sjogrens syndrome-A extracta ble nuclear Ab Qn (S)on 12-24-2022 SSA ANTIBODY QUAL Negative Normal Negative [facility] Comment on above: Order Comment: Speci men Type: URINE SPECIMEN Ordering Facility: [facility] Address: [address] [place] [address] Performed By: #### L [id number] #### [facility] CLIA [id number] [address] [place] [address] [place] Sjogrens syndrome-B extracta ble nuclear Ab Qn (S)on 12-24-2022 SSB ANTIBODY QUAL Negative Normal Negative [facility] Comment on above: Order Comment: Speci men Type: URINE SPECIMEN Ordering Facility: [facility] Address: [address] [place] [address] Performed By: #### L [id number] #### [facility] CLIA [id number] [address] [place] [address] [place] Roberts extractable nuclear Ig G Qn (S)on 12-24-2022 SM ANTIBODY QUAL Negative Normal Negative [facility] Comment on above: Order Comment: Speci men Type: URINE SPECIMEN Ordering Facility: [facility] Address: [address] [place] [address] Result Comment: Anti -Sm (Roberts) antibody is used as an aid in diagnosis of systemic lupus erythematosus and its presence is associated with renal disease. A negative result cannot rule out systemic lupus erythematosus. Clinical correlation is required. Test Methodology: Multiplex flow immunoassay. Performed By: #### L [id number] #### [facility] CLIA [id number] [address] [place] [address] [place] URINE PROTEIN ELECTROPHORESI S RANDOM (P)on 12-24-2022 Albumin Elph (U) [Mass fraction] 38.25 % Normal [facility] Comment on above: Order Comment: Speci men Type: URINE SPECIMEN Ordering Facility: [facility] Address: [address] Performed By: #### L [id number] #### [facility] CLIA [id number] [address] [place] [address] [place] Alpha 1 globulin Elph (U) [Mass fraction] 9.45 % Normal [facility] Comment on above: Order Comment: Speci men Type: URINE SPECIMEN Ordering Facility: [facility] Address: [address] Performed By: #### L [id number] #### [facility] CLIA [id number] [address] [place] [address] [place] Alpha 2 globulin Elph (U) [Mass fraction] 19.02 % Normal [facility] Comment on above: Order Comment: Speci men Type: URINE SPECIMEN Ordering Facility: [facility] Address: [address] Performed By: #### L [id number] #### [facility] CLIA [id number] [address] [place] [address] [place] Beta globulin Elph (U) [Mass fraction] 17.74 % Normal [facility] Comment on above: Order Comment: Speci men Type: URINE SPECIMEN Ordering Facility: [facility] Address: [address] Performed By: #### L [id number] #### [facility] CLIA [id number] [address] [place] [address] [place] Gamma globulin Elph (U) [Mass fraction] 15.53 % Normal [facility] Comment on above: Order Comment: Speci men Type: URINE SPECIMEN Ordering Facility: [facility] Address: [address] Performed By: #### L [id number] #### [facility] CLIA [id number] [address] [place] [address] [place] INTERPRETATION COMMENT FOR PROTEIN ELECTROPHORESIS The absence of M-protein on urine protein electrophoresis does not entirely exclude the presence of monoclonal gammopathy in urine. Monoclonal protein analysis (immunofixation), a more definitive test to exclude monoclonal gammopathy, may be requested on this specimen if clinically indicated. [facility] Comment on above: Order Comment: Speci men Type: URINE SPECIMEN Ordering Facility: [facility] Address: [address] [place] [address] Performed By: #### L [id number] #### [facility] CLIA [id number] [address] [place] [address] Protein Fractions Elph Khai (U) [Interp] No definitive M protein is identified on protein electrophoresis. Normal No definitive M protein is identified on protein electrophore sis. [facility] Comment on above: Order Comment: Speci men Type: URINE SPECIMEN Ordering Facility: [facility] Address: [address] [place] [address] Performed By: #### L [id number] #### [facility] CLIA [id number] [address] [place] [address] STAFF REVIEW (URINE ELECTRO) Reviewed by Dr. Senait Mai MD [facility] Comment on above: Order Comment: Speci men Type: URINE SPECIMEN Ordering Facility: [facility] Address: [address] [place] [address] Performed By: #### L [id number] #### [facility] CLIA [id number] [address] [place] [address] No Panel InformationOrdered By: Pearl Shepard on 10-04-2022 Miscellaneous Test See comment [facility] Comment on above: TEST RESULT LIMITSAN CA Profile Anti-MPO Antibodies <0.2 units 0.0-0.9 Anti-PR3 Antibodies <0.2 units 0.0-0.9 Cytoplasmic (C-ANCA) <1:20 titer Neg:<1:20 Perinuclear (P-ANCA) <1:20 titer Neg:<1:20The presence of positive fluorescence exhibiting P-ANCA or C-ANCA patterns alone is not specific for the diagnosis of Jeannette's Granulomatosis (WG) or microscopic polyangiitis. Decisions about treatment should not be based solely on ANCA IFA results. The International ANCA Group Consensus recommends follow up testing of positive sera with both HI-3 and MPO-ANCA enzyme immunoassays. As many as 5% serum samples are positive only by EIA.Ref. AM J Clin Pathol 1999;111:507-513.Atypical pANCA 1:20 High titer Neg:<1:20The atypical pANCA pattern has been observed in a significantpercentage of patients with ulcerative colitis, primary sclerosing cholangitis and autoimmune hepatitis. ____ TESTING PERFORMED AT [facility]. ORIGINAL REPORT ON FILE IN LAB CONTAINS ADDITIONAL TEST SITE INFORMATION. INR in Blood by Coagulation assayOrdered By: Pearl Shepard on 09-10-2022 INR Coag (Bld) [Relative time] 1.0 {INR} [facility] - Chemistry and C hemistry - challengeOrdered By: Pearl Shepard on 09-10-2022 Amylase [Catalytic activity/Vol] 18 U/L 5-55 [facility] - CoagulationOrde red By: Pearl Shepard on 09-10-2022 PT Coag (PPP) [Time] 13.1 s 11.7-14.9 [facility] Serum mitochondria antibody detectionOrdered By: Pearl Shepard on 09-10-2022 Mitochondria Ab Ql (S) <20.0 Units 0.0-20.0 [facility] Comment on above: Negative 0.0 - 20.0 Equivocal 20.1 - 24.9 Positive >24.9Mitochondrial (M2) Antibodies are found in 90-96% ofpatients with primary biliary cirrhosis.Performed at: [address] [id number] Director: Camron Tay PhD, Phone: [phone] Serum or plasma actin IgG an tibody assay (units/volume)Ordered By: Pearl Shepard on 09-10-2022 Actin IgG Qn 4 Units 0-19 [facility] Comment on above: Negative 0 - 19 Weak positive 20 - 30 Moderate to strong positive >30 Actin Antibodies are found in 52-85% of patients with autoimmune hepatitis or chronic active hepatitis and in 22% of patients with primary biliary cirrhosis.Performed at: [facility] [id number] Director: Camron Tay PhD, Phone: [phone] Basophil percentageOrdered B y: Courtney Dillard on 08-07-2022 Bilirubin [Mass/Vol] 0.30 mg/dL 0.20-1.00 [facility] Comment on above: For patients on eltr ombopag therapy, use of Dimension [place] TBIL is not recommended. Chloride [Moles/Vol] 109 mmol/L 98-107 [facility] Glucose [Mass/Vol] 92 mg/dL 74-106 [facility] Potassium [Moles/Vol] 3.5 mmol/L 3.5-5.1 [facility] Protein [Mass/Vol] 6.8 g/dL 6.4-8.2 [facility] Sodium [Moles/Vol] 142 mmol/L 136-145 [facility] - Chemistry and C hemistry - challengeOrdered By: Courtney Dillard on 08-07-2022 ALP [Catalytic activity/Vol] 97 U/L 45-117 [facility] ALT [Catalytic activity/Vol] 22 U/L 13-56 [facility] CO2 [Moles/Vol] 27.0 mmol/L 21.0-32.0 [facility] Cobalamin (Vitamin B12) [Mass/Vol] 713 pg/mL 211-911 [facility] Globulin (S) [Mass/Vol] 3.0 g/dL 2.2-4.2 [facility] Urea nitrogen/Creatinine [Mass ratio] 26.2 mg/mg 10-20 [facility] No Panel InformationOrdered By: Courtney Dillard on 08-07-2022 Estimated GFR (MDRD) Amer 96 mL/min >60 [facility] Comment on above: GFR Calc Estimated GFR (MDRD) Non-Af Amer 79 mL/min >60 [facility] Comment on above: Non- GFR Calc Vitamin D 25-Hydroxy 45.1 ng/mL [facility] Comment on above: Vitamin D 25(OH) Sta tus Range Deficiency <20 ng/mL (50nmol/L) Insufficiency 20 - 30 ng/mL (50 - 75 nmol/L) Sufficiency 30 - 100 ng/mL (75 - 250 nmol/L) Toxicity >100 ng/mL (>250 nmol/L) Serum or plasma albumin josette urement (mass/volume)Ordered By: Courtney Nishant on 08-07-2022 Albumin [Mass/Vol] 3.8 g/dL 3.2-5.0 [facility] Serum or plasma albumin/glob ulin mass ratioOrdered By: [facility] on 08-07-2022 Albumin/Globulin [Mass ratio] 1.3 {ratio} 0.9-2.4 [facility] Serum or plasma calcium josette urement (mass/volume)Ordered By: [facility] on 08-07-2022 Calcium [Mass/Vol] 9.6 mg/dL 8.5-10.1 [facility] Serum or plasma creatinine m easurement (mass/volume)Ordered By: [facility] on 08-07-2022 Creatinine [Mass/Vol] 0.76 mg/dL 0.55-1.02 [facility] Comment on above: The validity of the calculated GFR & GFRAA in patients over 70 years has not been determined. Clinical correlation is essential. Serum or plasma urea nitroge n measurement (mass/volume)Ordered By: Courtney [facility] on 08-07-2022 Urea nitrogen [Mass/Vol] 20 mg/dL 7-18 [facility] Thin prep Papanicolaou smear with manual screeningOrdered By: Coutrney [facility] on 08-07-2022 Thin prep Papanicolaou smear with manual screening 14 U/L 15-37 [facility] Thin prep Papanicolaou smear with manual screening 6 5-15 [facility] Whole blood hemoglobin A1c/t otal hemoglobin ratio (mass fraction)Ordered By: Courtney Dillard on 08-07-2022 HbA1c (Bld) [Mass fraction] 5.2 % 3.8-5.6 [facility] Comment on above: Normal < 5.7 % Predi abetic 5.7 - 6.4 % Diabetic >or= 6.5 % Please note range changes. Basophil percentageOrdered B y: Dr. Roberts on 08-01-2022 Cholesterol [Mass/Vol] 194 mg/dL <200 [facility] Comment on above: <200 mg/dL Desirable 200-240 mg/dL Borderline >240 mg/dL High Risk Triglyceride [Mass/Vol] 130 mg/dL <199 [facility] Comment on above: The drugs N-Acetylcy steine and Metamizole may falsely depress this assay.Serum Triglycerides Reference Interval Normal <150 mg/dL Borderline high 150 - 199 mg/dL High 200 - 499 mg/dL Very High > or = 500 mg/dL No Panel InformationOrdered By: Dr. Roberts on 08-01-2022 Thyroid Stimulating Hormone (TSH) 2.48 uIU/mL 0.358-3.74 [facility] Serum or plasma cholesterol in HDL measurement (mass/volume)Ordered By: Dr. Roberts on 08-01-2022 Cholesterol in HDL [Mass/Vol] 43 mg/dL >40 [facility] Comment on above: The drugs N-Acetylcy steine and Metamizole may falsely depress this assay. Reference Range HDL <40 mg/dL Low HDL Cholesterol HDL >or= 60 mg/dL High HDL Cholesterol Serum or plasma cholesterol in VLDL measurement (mass/volume)Ordered By: Dr. Roberts on 08-01-2022 Cholesterol in VLDL [Mass/Vol] 26 mg/dL 5-40 [facility] Serum or plasma low density lipoprotein (LDL) cholesterol measurement (mass/volume)Ordered By: Dr. Roberts on 08-01-2022 Cholesterol in LDL [Mass/Vol] 125 mg/dL 0-130 [facility] No Panel InformationOrdered By: Bridger Lanier on 07-18-2022 Miscellaneous Test See comment [facility] Comment on above: TEST RESULT LIMITSIB D Expanded PanelgASCA 18 units 0-50 Negative <45 Equivocal 45 - 50 Positive >50ACCA 29 units 0-90 Negative <80 Equivocal 80 - 90 Positive >90ALCA 6 units 0-60 Negative <55 Equivocal 55 - 60 Positive >60AMCA 24 units 0-100 Negative < 90 Equivocal 90 - 100 Positive >100 This test was developed and its performance characteristics determined by [facility]. It has not been cleared or approved by the Food and Drug Administration. The FDA has determined that such clearance or approval is not necessary.Atypical pANCA Negative NegativeCommentsPattern is not suggestive of Inflammatory Bowel Disease. __ TESTING PERFORMED AT [facility]. ORIGINAL REPORT ON FILE IN LAB CONTAINS ADDITIONAL TEST SITE INFORMATION. Absolute lymphocyte countOrd ered By: Bridger Lanier on 07-02-2022 Lymphocytes Auto (Unsp spec) [#/Vol] 1.14 10*3/uL 0.83-4.51 [facility] Albumin Elph [Mass/Vol]Order ed By: Bridger Lanier on 07-02-2022 Albumin [Mass/Vol] 4.0 g/dL 2.9-4.4 [facility] Atypical perinuclear antineu trophil cytoplasmic antibodies measurementOrdered By: Bridger Lanier on 07-02-2022 Neutrophil cytoplasmic Ab.perinuclear.atypica l IF (S) [Titer] 1:20 titer Neg:<1:20 [facility] Comment on above: The atypical pANCA p attern has been observed in asignificant percentage of patients with ulcerative colitis,primary sclerosing cholangitis and autoimmune hepatitis. Basophil percentageOrdered B y: Bridger Lanier on 07-02-2022 Basophil percentage < 0.2 AI 0.0-0.9 [facility] Basophils/100 WBC (Bld) 0.6 % 0-1 [facility] Bilirubin [Mass/Vol] 0.20 mg/dL 0.20-1.00 [facility] Comment on above: For patients on eltr ombopag therapy, use of Dimension [place] TBIL is not recommended. Chloride [Moles/Vol] 110 mmol/L 98-107 [facility] Eosinophils/100 WBC (Bld) 5.2 % 0-5 [facility] Glucose [Mass/Vol] 102 mg/dL 74-106 [facility] Comment on above: Fasting Glucose resu lt from 100 to 125 mg/dL suggests IMPAIRED HOMEOSTASIS per A.D.A. criteria. Neutrophils (Bld) [#/Vol] 3.3 10*3/uL 2.0-7.7 [facility] Neutrophils/100 WBC (Bld) 61.8 % 47-70 [facility] Potassium [Moles/Vol] 3.7 mmol/L 3.5-5.1 [facility] Comment on above: Slight Hemolysis, Re sult may be falsely increased. Protein [Mass/Vol] 6.8 g/dL 6.4-8.2 [facility] Sodium [Moles/Vol] 143 mmol/L 136-145 [facility] WBC (Bld) [#/Vol] 5.4 10*3/uL 4.4-11.0 [facility] Blood erythrocytes count (nu mber/volume)Ordered By: Bridger Lanier on 07-02-2022 RBC (Bld) [#/Vol] 5.12 10*6/uL 4.2-5.4 [facility] Blood hemoglobin measurement (mass/volume)Ordered By: Bridger Lanier on 07-02-2022 Hemoglobin (Bld) [Mass/Vol] 15.2 g/dL 12.0-15.0 [facility] Blood lymphocytes/100 leukoc ytesOrdered By: Bridger Lanier on 07-02-2022 Lymphocytes/100 WBC (Bld) 21.2 % 19-41 [facility] Blood monocytes/100 leukocyt esOrdered By: Bridger Lanier on 07-02-2022 Monocytes/100 WBC (Bld) 11.0 % 0-10 [facility] Blood platelet mean volumeOr dered By: Bridger Lanier on 07-02-2022 Platelet mean volume (Bld) [Entitic vol] 11.2 fL 6.2-12.0 [facility] Determination of erythrocyte mean corpuscular volume (MCV)Ordered By: Bridger Lanier on 07-02-2022 MCV (RBC) [Entitic vol] 91.8 fL 81-99 [facility] Erythrocyte sedimentation ra teOrdered By: Bridger Lanier on 07-02-2022 ESR (Bld) [Velocity] 4 mm/h 0-30 [facility] Hematocrit Auto (Bld) [Volum e fraction]Ordered By: Bridger Lanier on 07-02-2022 Hematocrit (Bld) [Volume fraction] 47.0 % 37-47 [facility] Interpretation of serum or p lasma protein pattern by immunofixation (narrative resultOrdered By: Bridger Lanier on 07-02-2022 Protein Fractions Immunofixation Khai [Interp] See comment [facility] Comment on above: Result: Not Observed Laboratory - Chemistry and C hemistry - challengeOrdered By: Bridger Lanier on 07-02-2022 ALP [Catalytic activity/Vol] 100 U/L 45-117 [facility] ALT [Catalytic activity/Vol] 30 U/L 13-56 [facility] CO2 [Moles/Vol] 27.0 mmol/L 21.0-32.0 [facility] Urea nitrogen/Creatinine [Mass ratio] 26.9 mg/mg 10-20 [facility] - Chemistry and C hemistry - challengeon 07-02-2022 Globulin (S) [Mass/Vol] 3.2 g/dL 2.2-4.2 [facility] Work Phone: Laboratory - Hematology and Cell countsOrdered By: Bridger Lanier on 07-02-2022 Erythrocyte distribution width (RBC) [Entitic vol] 44.7 fL 35.1-43.9 [facility] Erythrocyte distribution width (RBC) [Ratio] 13.2 % 11.6-14.6 [facility] Immature granulocytes/100 WBC (Bld) 0.200 % 0.0-0.9 [facility] Comment on above: IG% - Immature Granu locytes (promyelocytes, myelocytes and metamyelocytes) > 1% indicates that a LEFT SHIFT is Present. MCH (RBC) [Entitic mass] 29.7 pg 27.0-32.0 [facility] Nucleated RBC/100 WBC (Bld) [Ratio] 0 % 0-5 [facility] MCHC Auto (RBC) [Mass/Vol]Or dered By: Bridger Lanier on 07-02-2022 MCHC (RBC) [Mass/Vol] 32.3 g/dL 32-36 [facility] No Panel InformationOrdered By: Bridger Lanier on 07-02-2022 Addendum Document Comment . [facility] Comment on above: Protein electrophore sis scan will follow via computer,mail, or radio electrician delivery. Centromere B Antibody <0.2 AI 0.0-0.9 [facility] Endomysial IgA Antibody Negative Negative [facility] Estimated GFR (MDRD) Amer 93 mL/min >60 [facility] Comment on above: GFR Calc Estimated GFR (MDRD) Non-Af Amer 77 mL/min >60 [facility] Comment on above: Non- GFR Calc Immunoglobulin E 124 IU/mL 6-495 [facility] Antibody <0.2 AI 0.0-0.9 [facility] Platelets bldOrdered By: Pedro Lanier on 07-02-2022 Platelets (Bld) [#/Vol] 116 10*3/uL 150-450 [facility] Serum DNA double strand anti body assay (units/volume)Ordered By: Bridger Lanier on 07-02-2022 DNA double strand Ab Qn (S) [IU]/mL 0-9 [facility] Comment on above: Negative <5 Equivoca l 5 - 9 Positive >9 Serum IgA measurement (units /volume)on 07-02-2022 IgA Qn (S) 113 mg/dL 64-422 [facility] Work Phone: Comment on above: Performed at: [address] [id number] Director: Camron Tay PhD, Phone: [phone] Serum Dara-1 antibody assay (u nits/volume)Ordered By: Bridger Lanier on 07-02-2022 Dara-1 extractable nuclear Ab Qn (S) <0.2 AI 0.0-0.9 [facility] Serum Scl-70 extractable nuc lear antibody assay (units/volume)Ordered By: Bridger Lanier on 07-02-2022 SCL-70 extractable nuclear Ab Qn (S) 0.2 AI 0.0-0.9 [facility] Serum Roberts extractable nucl ear antibody detectionOrdered By: Bridger Lanier on 07-02-2022 Roberts extractable nuclear Ab Ql (S) <0.2 AI 0.0-0.9 [facility] Serum [id number] measu rement by electrophoresisOrdered By: Bridger Lanier on 07-02-2022 Alpha 1 globulin Elph [Mass/Vol] 0.2 g/dL 0.0-0.4 [facility] Alpha 1 globulin Elph [Mass/Vol] 0.8 g/dL 0.4-1.0 [facility] Serum classic neutrophil cyt oplasmic antibody assay (units/volume)Ordered By: Bridger Lanier on 07-02-2022 Neutrophil cytoplasmic Ab.classic Qn (S) <1:20 titer Neg:<1:20 [facility] Serum globulin measurement ( mass/volume)Ordered By: Bridger Lanier on 07-02-2022 Globulin (S) [Mass/Vol] 2.5 g/dL 2.2-3.9 [facility] Serum or plasma C reactive p rotein measurement (mass/volume)Ordered By: Bridger Lanier on 07-02-2022 CRP [Mass/Vol] 4.13 mg/L 0.0-3.0 [facility] Comment on above: C-Reactive Protein ( CRP) provides useful information for thediagnosis, therapy and monitoring of inflammatory processesand associated diseases. For the evaluation of Relative Riskfor Cardiovascular Disease, a High Sensitivity CRP (HSCRP)should be ordered. Serum or plasma IgA measurem ent (mass/volume)Ordered By: Bridger Lanier on 07-02-2022 IgA [Mass/Vol] 121 mg/dL 64-422 [facility] Serum or plasma IgG measurem ent (mass/volume)Ordered By: Bridger Lanier on 07-02-2022 IgG [Mass/Vol] 617 mg/dL 586-1602 [facility] Serum or plasma IgM measurem ent (mass/volume)Ordered By: Bridger Lanier on 07-02-2022 IgM [Mass/Vol] 109 mg/dL 26-217 [facility] Serum or plasma albumin josette urement (mass/volume)Ordered By: Bridger Lanier on 07-02-2022 Albumin [Mass/Vol] 3.6 g/dL 3.2-5.0 [facility] Serum or plasma albumin/glob ulin mass ratioOrdered By: Bridger Lanier on 07-02-2022 Albumin/Globulin [Mass ratio] 1.1 {ratio} 0.9-2.4 [facility] Serum or plasma beta globuli n measurement by electrophoresis (mass/volume)Ordered By: Bridger Lanier on 07-02-2022 Beta globulin Elph [Mass/Vol] 0.9 g/dL 0.7-1.3 [facility] Serum or plasma calcium josette urement (mass/volume)Ordered By: Bridger Lanier on 07-02-2022 Calcium [Mass/Vol] 10.0 mg/dL 8.5-10.1 [facility] Serum or plasma creatinine m easurement (mass/volume)Ordered By: Bridger Lanier on 07-02-2022 Creatinine [Mass/Vol] 0.78 mg/dL 0.55-1.02 [facility] Comment on above: The validity of the calculated GFR & GFRAA in patients over 70 years has not been determined. Clinical correlation is essential. Serum or plasma gamma globul in measurement by electrophoresis (mass/volume)Ordered By: Bridger Lanier on 07-02-2022 Gamma globulin Elph [Mass/Vol] 0.7 g/dL 0.4-1.8 [facility] Serum or plasma gastrin josette urement (mass/volume)Ordered By: Bridger Lanier on 07-02-2022 Gastrin [Mass/Vol] < 10 pg/mL 0-115 [facility] Comment on above: Siemens NotaryActulite 200 0 Immunochemiluminometric assay (ICMA)Values obtained with different assay methods or kits cannotbe used interchangeably. Results cannot be interpreted asabsolute evidence of the presence or absence of malignantdisease.Performed at: - [facility] [id number] [place], [place] [id number] Director: Camron Tay PhD, Phone: [phone] at: - [facility] [address] [place], [place] [id number] Director: Bartolo Camacho MD, Phone: [phone] Serum or plasma immunoelectr ophoresis interpretation (nominal result)Ordered By: Bridger Lanier on 07-02-2022 Interpretation IEP [Interp] Comment . [facility] Comment on above: No monoclonality det ected. Serum or plasma urea nitroge n measurement (mass/volume)Ordered By: Bridger Lanier on 07-02-2022 Urea nitrogen [Mass/Vol] 21 mg/dL 7-18 [facility] Serum perinuclear neutrophil cytoplasmic antibody titer by immunofluorescenceOrdered By: Bridger Lanier on 07-02-2022 Neutrophil cytoplasmic Ab.perinuclear IF (S) [Titer] <1:20 titer Neg:<1:20 [facility] Comment on above: The presence of posi tive fluorescence exhibiting P-ANCA orC-ANCA patterns alone is not specific for the diagnosis ofWegener's Granulomatosis (WG) or microscopic polyangiitis.Decisions about treatment should not be based solely onANCA IFA results. The International ANCA Group Consensusrecommends follow up testing of positive sera with both HI-3 and MPO-ANCA enzyme immunoassays. As many as 5% serumsamples are positive only by EIA. Ref. AM J Clin [id number];111:507-513. Serum tissue transglutaminas e IgA antibody assay (units/volume)Ordered By: Bridger Lanier on 07-02-2022 tTG IgA Qn (S) <2 U/mL 0-3 [facility] Comment on above: Negative 0 - 3 Weak Positive 4 - 10 Positive >10 Tissue Transglutaminase (tTG) has been identified as the endomysial antigen. Studies have demonstr- ated that endomysial IgA antibodies have over 99% specificity for gluten sensitive enteropathy. Thin prep Papanicolaou smear with manual screeningOrdered By: Bridger Lanier on 07-02-2022 Thin prep Papanicolaou smear with manual screening 13 U/L 15-37 [facility] Comment on above: Slight Hemolysis, Re sult may be falsely increased. Thin prep Papanicolaou smear with manual screening 6 5-15 [facility] Thin prep Papanicolaou smear with manual screening 194 U/L 84-246 [facility] Comment on above: Slight Hemolysis, Re sult may be falsely increased. Thin prep Papanicolaou smear with manual screening 1.7 0.7-1.7 [facility] Total protein bloodOrdered B y: Bridger Friend on 07-02-2022 Protein [Mass/Vol] 6.5 g/dL 6.0-8.5 [facility] Absolute lymphocyte counton 05-22-2022 Lymphocytes Auto (Unsp spec) [#/Vol] 0.93 10*3/uL 0.83-4.51 [facility] Work Phone: [phone] Basophil percentageon 2021 Basophils/100 WBC (Bld) 0.6 % 0-1 [facility] Work Phone: Eosinophils/100 WBC (Bld) 4.5 % 0-5 [facility] Work Phone: [phone] Neutrophils (Bld) [#/Vol] 2.9 10*3/uL 2.0-7.7 [facility] Work Phone: [phone] Neutrophils/100 WBC (Bld) 63.2 % 47-70 [facility] Work Phone: WBC (Bld) [#/Vol] 4.6 10*3/uL 4.4-11.0 [facility] Work Phone: [phone] Blood erythrocytes count (nu mber/volume)on 05-22-2022 RBC (Bld) [#/Vol] 4.88 10*6/uL 4.2-5.4 [facility] Work Phone: [phone] Blood hemoglobin measurement (mass/volume)on 05-22-2022 Hemoglobin (Bld) [Mass/Vol] 15.0 g/dL 12.0-15.0 [facility] Work Phone: Blood lymphocytes/100 leukoc yteson 05-22-2022 Lymphocytes/100 WBC (Bld) 20.1 % 19-41 [facility] Work Phone: Blood monocytes/100 leukocyt eson 05-22-2022 Monocytes/100 WBC (Bld) 11.4 % 0-10 [facility] Work Phone: Blood platelet mean volumeon 05-22-2022 Platelet mean volume (Bld) [Entitic vol] 11.8 fL 6.2-12.0 [facility] Work Phone: Determination of erythrocyte mean corpuscular volume (MCV)on 05-22-2022 MCV (RBC) [Entitic vol] 92.4 fL 81-99 [facility] Work Phone: Hematocrit Auto (Bld) [Volum e fraction]on 05-22-2022 Hematocrit (Bld) [Volume fraction] 45.1 % 37-47 [facility] Work Phone: Laboratory - Hematology and Cell countson 05-22-2022 Erythrocyte distribution width (RBC) [Entitic vol] 44.4 fL 35.1-43.9 [facility] Work Phone: Erythrocyte distribution width (RBC) [Ratio] 13.1 % 11.6-14.6 [facility] Work Phone: Immature granulocytes/100 WBC (Bld) 0.200 % 0.0-0.9 [facility] Work Phone: Comment on above: IG% - Immature Granu locytes (promyelocytes, myelocytes and metamyelocytes) > 1% indicates that a LEFT SHIFT is Present. MCH (RBC) [Entitic mass] 30.7 pg 27.0-32.0 [facility] Work Phone: Nucleated RBC/100 WBC (Bld) [Ratio] 0 % 0-5 [facility] Work Phone: MCHC Auto (RBC) [Mass/Vol]on 05-22-2022 MCHC (RBC) [Mass/Vol] 33.3 g/dL 32-36 [facility] Work Phone: No Panel Informationon 05-22 Thyroid Stimulating Hormone (TSH) 1.93 uIU/mL 0.358-3.74 [facility] Work Phone: Platelets bldon 05-22-2022 Platelets (Bld) [#/Vol] 109 10*3/uL 150-450 [facility] Work Phone: Serum or plasma ferritin deshawn surement (mass/volume)on 05-22-2022 Ferritin [Mass/Vol] 178 ng/mL 8-252 [facility] Work Phone: Clinical Summary: Dawna jaguar 01-11-2022 [facility] OP Visit Invalid Interpretation Code [facility] Work Phone: Office Visit: New/Est - 1st visit with physician, Rm: 9on 01-11-2022 NEGATED: Highlighted rowxray history of the left knee on 01/10/2022 at [facility] Invalid Interpretation Code [facility] Work Phone: Clinical Summary: Scanned Hi story Summaryon 01-10-2022 comments about allergies Surgical tape Seasonal allergies/ shot once a week Invalid Interpretation Code [facility] Work Phone: data entered by patient, alcohol (ethanol or ETOH) use No Invalid Interpretation Code [facility] Work Phone: Data entered by patient, allergy list Sulfa drugs Dust mites Plant pollens (Hay Fever) I don't have any Food Allergies Invalid Interpretation Code [facility] Work Phone: data entered by patient, drug (of abuse) use No Invalid Interpretation Code [facility] Work Phone: data entered by patient, Employer Name retired Invalid Interpretation Code [facility] Work Phone: data entered by patient, exercise history No Invalid Interpretation Code [facility] Work Phone: data entered by patient, father's medical history Blood clots Heart disease Invalid Interpretation Code [facility] Work Phone: Data entered by patient, history of past surgeries Appendectomy Cataract surgery Gallbladder surgery Hernia repair Hysterectomy Invalid Interpretation Code [facility] Work Phone: Data entered by patient, medication list levothyroxine sodium-.88 mcg-1-Daily acyiemmgylq-36-6-Daily Vitamin D-Unknown Ltjdkaqi-8-Ijqaj [id number] Dosage-When needed Invalid Interpretation Code [facility] Work Phone: data entered by patient, mother's medical history Bleeding disorder Heart disease High blood pressure Hypothyroidism Invalid Interpretation Code [facility] Work Phone: data entered by patient, past medical history Bleeding disorder GERD Hypothyroidism Invalid Interpretation Code [facility] Work Phone: data entered by patient, social history, current smoker never smoker Invalid Interpretation Code [facility] Work Phone: data entered by patient, social history, marital status Invalid Interpretation Code [facility] Work Phone: father of patient is alive or Invalid Interpretation Code [facility] Work Phone: Housing Type: apartment, house, fci, trailer, none house Invalid Interpretation Code [facility] Work Phone: housing unit size (asthma environmental history, housing) (from single family to don't know) 1 floor Invalid Interpretation Code [facility] Work Phone: medical history of patient's brother(s) Diabetes - non-insulin dependent Heart disease High blood pressure Invalid Interpretation Code [facility] Work Phone: medication comments Gabapentin used for restless legs Invalid Interpretation Code [facility] Work Phone: mother of patient is alive or Invalid Interpretation Code [facility] Work Phone: Number of dependent children No Invalid Interpretation Code [facility] Work Phone: sister of patient(s) alive or I do not have any sisters. My sister(s)' health history is unknown. Invalid Interpretation Code [facility] Work Phone: Web entered surgical history comments Colon resection Invalid Interpretation Code [facility] Work Phone: XR Knee - left 4 Viewson * * *Final Report* * * DATE OF EXAM: Jan 10 2022 2:24PM WOX 5202 - XR KNEE 4V AP/PA BOTH+LAT/SAM LT / PROCEDURE REASON: Acute pain of left knee * * * * Physician Interpretation * * * * Indication: Left knee pain Comparison: None AP, PA, lateral and merchant views of the left knee are obtained. AP, PA and merchant views of the right knee are included. There is no acute fracture or dislocation. Joint spaces are maintained. Impression: 1. No acute fracture or dislocation. Internet Sales Consultant: MONTEZ Transcribe Date/Time: Jan 10 2022 2:27P Dictated by : WALDO VELÁZQUEZ MD This examination was interpreted and the report reviewed and electronically signed by: WALDO VELÁZQUEZ MD on Jan 10 2022 2:29PM EST [email or web address] E_DIVISION OF RADIOLOGY Provider, [facility] - 01/10/2022 * * *Final Report* * * DATE OF EXAM: Jan 10 2022 2:24PM WOX 5202 - XR KNEE 4V AP/PA BOTH+LAT/SAM LT / PROCEDURE REASON: Acute pain of left knee * * * * Physician Interpretation * * * * Indication: Left knee pain Comparison: None AP, PA, lateral and merchant views of the left knee are obtained. AP, PA and merchant views of the right knee are included. There is no acute fracture or dislocation. Joint spaces are maintained. Impression: 1. No acute fracture or dislocation. Internet Sales Consultant: MONTEZ Transcribe Date/Time: Jan 10 2022 2:27P Dictated by : WALDO VELÁZQUEZ MD This examination was interpreted and the report reviewed and electronically signed by: WALDO VELÁZQUEZ MD on Jan 10 2022 2:29PM EST [facility] Radiology Study observation (narrative) [facility] XR Knee - left 4 ViewsOrdere d By: Ccf Provider on 01-10-2022 [facility] Basophil percentageon 2021 Creatinine [Mass/Vol] 1.3 mg/dL 0.55-1.02 [facility] Work Phone: Laboratory - Chemistry and C hemistry - challengeon 01-09-2022 GFR/1.73 sq M.predicted among non-blacks MDRD (S/P/Bld) [Vol rate/Area] 45.0000 mL/min/{1.73_m2} >60 [facility] Work Phone: No Panel Informationon 10-22 POC SARS CoV-2 Antigen Positive [facility] Work Phone: Absolute lymphocyte counton 10-03-2021 Lymphocytes Auto (Unsp spec) [#/Vol] 0.90 10*3/uL 0.83-4.51 [facility] Work Phone: Basophil percentageon 2021 Basophils/100 WBC (Bld) 0.5 % 0-1 [facility] Work Phone: Bilirubin [Mass/Vol] 0.30 mg/dL 0.20-1.00 [facility] Work Phone: Comment on above: For patients on eltr ombopag therapy, use of Dimension [place] TBIL is not recommended. Chloride [Moles/Vol] 108 mmol/L 98-107 [facility] Work Phone: Eosinophils/100 WBC (Bld) 4.3 % 0-5 [facility] Work Phone: Glucose [Mass/Vol] 106 mg/dL 74-106 [facility] Work Phone: Comment on above: Fasting Glucose resu lt from 100 to 125 mg/dL suggests IMPAIRED HOMEOSTASIS per A.D.A. criteria.Please note revised GLUCOSE reference range effective 2017. Neutrophils (Bld) [#/Vol] 2.9 10*3/uL 2.0-7.7 [facility] Work Phone: [phone] Neutrophils/100 WBC (Bld) 64.7 % 47-70 [facility] Work Phone: [phone] Potassium [Moles/Vol] 3.7 mmol/L 3.5-5.1 [facility] Work Phone: [phone] Protein [Mass/Vol] 7.1 g/dL 6.4-8.2 [facility] Work Phone: [phone] Sodium [Moles/Vol] 142 mmol/L 136-145 [facility] Work Phone: [phone] WBC (Bld) [#/Vol] 4.4 10*3/uL 4.4-11.0 [facility] Work Phone: Blood erythrocytes count (nu mber/volume)on 10-03-2021 RBC (Bld) [#/Vol] 5.27 10*6/uL 4.2-5.4 [facility] Work Phone: Blood hemoglobin measurement (mass/volume)on 10-03-2021 Hemoglobin (Bld) [Mass/Vol] 16.0 g/dL 12.0-15.0 [facility] Work Phone: [phone] Blood lymphocytes/100 leukoc yteson 10-03-2021 Lymphocytes/100 WBC (Bld) 20.5 % 19-41 [facility] Work Phone: [phone] Blood monocytes/100 leukocyt eson 10-03-2021 Monocytes/100 WBC (Bld) 10.0 % 0-10 [facility] Work Phone: [phone] Blood platelet mean volumeon 10-03-2021 Platelet mean volume (Bld) [Entitic vol] 11.7 fL 6.2-12.0 [facility] Work Phone: Determination of erythrocyte mean corpuscular volume (MCV)on 10-03-2021 MCV (RBC) [Entitic vol] 91.7 fL 81-99 [facility] Work Phone: Hematocrit Auto (Bld) [Volum e fraction]on 10-03-2021 Hematocrit (Bld) [Volume fraction] 48.3 % 37-47 [facility] Work Phone: Iron measurement (mass/mass) on 10-03-2021 Iron (Unsp spec) [Mass/Mass] 91 ug/dL 50-170 [facility] Work Phone: Laboratory - Chemistry and C hemistry - challengeon 10-03-2021 ALP [Catalytic activity/Vol] 105 U/L 45-117 [facility] Work Phone: ALT [Catalytic activity/Vol] 28 U/L 13-56 [facility] Work Phone: CO2 [Moles/Vol] 24.0 mmol/L 21.0-32.0 [facility] Work Phone: Free T4 [Mass/Vol] 1.35 ng/dL 0.76-1.46 [facility] Work Phone: Globulin (S) [Mass/Vol] 3.5 g/dL 2.2-4.2 [facility] Work Phone: Urea nitrogen/Creatinine [Mass ratio] 20.4 mg/mg 10-20 [facility] Work Phone: Laboratory - Hematology and Cell countson 10-03-2021 Erythrocyte distribution width (RBC) [Entitic vol] 44.4 fL 35.1-43.9 [facility] Work Phone: Erythrocyte distribution width (RBC) [Ratio] 13.1 % 11.6-14.6 [facility] Work Phone: Immature granulocytes/100 WBC (Bld) 0.000 % 0.0-0.9 [facility] Work Phone: Comment on above: IG% - Immature Granu locytes (promyelocytes, myelocytes and metamyelocytes) > 1% indicates that a LEFT SHIFT is Present. MCH (RBC) [Entitic mass] 30.4 pg 27.0-32.0 [facility] Work Phone: Nucleated RBC/100 WBC (Bld) [Ratio] 0 % 0-5 [facility] Work Phone: MCHC Auto (RBC) [Mass/Vol]on 10-03-2021 MCHC (RBC) [Mass/Vol] 33.1 g/dL 32-36 [facility] Work Phone: No Panel Informationon 10-03 Estimated GFR (MDRD) Amer 77 mL/min >60 [facility] Work Phone: Comment on above: GFR Calc Estimated GFR (MDRD) Non-Af Amer 63 mL/min >60 [facility] Work Phone: Comment on above: Non- GFR Calc Thyroid Stimulating Hormone (TSH) 1.13 uIU/mL 0.358-3.74 [facility] Work Phone: Total Iron Binding Capacity 302 ug/dL 250-450 [facility] Work Phone: Platelets bldon 10-03-2021 Platelets (Bld) [#/Vol] 101 10*3/uL 150-450 [facility] Work Phone: Serum nuclear antibody titer by immunofluorescenceon 10-03-2021 Nuclear Ab IF (S) [Titer] See comment [facility] Work Phone: Comment on above: Antinuclear Antibodi es, IFAAntinuclear Antibodies, IFA Positive Abnormal Negative <1:80 Borderline 1:80 Positive >1:80Homogeneous Pattern 1:80 ICAP nomenclature: AC-1Note:For more information about Hep-2 cell patterns useFrock Advisorpatterns.org, the official website for the InternationalConsensus on Antinuclear Antibody (VICKY) Patterns (ICAP). ----A positive VICKY result may occur in healthy individuals (lowtiter) or be associated with a variety of diseases. Seeinterpretation chart which is not all inclusive:Pattern Antigen Detected Suggested Disease Association Homogeneous DNA(ds,ss), SLE - High titers Nucleosomes, Histones Drug-induced SLE Speckled Sm, [facility], SCL-70, SLE,MCTD,PSS (diffuse form), SS-A/SS-B Sjogrens Nucleolar SCL-70, PM-1/SCL High titers Scleroderma, PM/DM Centromere Centromere PSS (limited form) w/Crest syndrome variable Nuclear Dot [id number] Primary Biliary Cirrhosis Nuclear GP210, Primary Biliary CirrhosisMembrane jaziel A,B,C Serum or plasma albumin josette urement (mass/volume)on 10-03-2021 Albumin [Mass/Vol] 3.6 g/dL 3.2-5.0 [facility] Work Phone: Serum or plasma albumin/glob ulin mass ratioon 10-03-2021 Albumin/Globulin [Mass ratio] 1.0 {ratio} 0.9-2.4 [facility] Work Phone: Serum or plasma calcitriol m easurement (mass/volume)on 10-03-2021 1,25-dihydroxyvitamin D3 [Mass/Vol] See comment [facility] Work Phone: Comment on above: TEST RESULT UNITS RE F INTERVALCalcitriol(1,25 di-OH Vit D)Calcitriol(1,25 di-OH Vit D) 87.4 High pg/mL 19.9-79.3 ___ TESTING PERFORMED AT [facility]. ORIGINAL REPORT ON FILE IN LAB CONTAINS ADDITIONAL TEST SITE INFORMATION. Serum or plasma calcium josette urement (mass/volume)on 10-03-2021 Calcium [Mass/Vol] 9.5 mg/dL 8.5-10.1 [facility] Work Phone: Serum or plasma creatinine m easurement (mass/volume)on 10-03-2021 Creatinine [Mass/Vol] 0.93 mg/dL 0.55-1.02 [facility] Work Phone: Comment on above: The validity of the calculated GFR & GFRAA in patients over 70 years has not been determined. Clinical correlation is essential. Serum or plasma ferritin deshawn surement (mass/volume)on 10-03-2021 Ferritin [Mass/Vol] 174 ng/mL 8-252 [facility] Work Phone: Serum or plasma urea nitroge n measurement (mass/volume)on 10-03-2021 Urea nitrogen [Mass/Vol] 19 mg/dL 7-18 [facility] Work Phone: Serum or plasma zinc measure ment (mass/volume)on 10-03-2021 Zinc [Mass/Vol] 90 ug/dL [facility] Work Phone: Comment on above: Detection Limit = 5P erformed at: [address] [id number] Director: Bartolo Camacho MD, Phone: [phone] Thin prep Papanicolaou smear with manual screeningon 10-03-2021 Thin prep Papanicolaou smear with manual screening 11 U/L 15-37 [facility] Work Phone: Thin prep Papanicolaou smear with manual screening 10 5-15 [facility] Work Phone: [facility]20[facility] HALLIE GUZMAN ([id number]) 1950 F Date Time Provider Department 05/30/21 KELLIE HALEY During your visit today, we recorded the following information about you: Kellie Haley RN 05/30/2021 1:31 PM Signed Spoke with patient regarding reminder for stress test tomorrow and given instructions. Allergies As of Date: 05/30/2021 Noted Allergy Reaction LIPITOR (ATORVASTATIN CALCIUM) 12/17/2006 Comments: myalgia SULFAMETHOXAZOLE 11/01/2020 14 - Other: See Comments Comments: Very Shaky Date Reviewed: 05/24/2021 Reviewed by: Andie Subramanian [facility] - Fully Assessed Reason for Visit: Reminder Call [[id number]] Prescriptions as of 05/30/2021 - gabapentin (NEURONTIN) 100 mg capsule Take 1 capsule by mouth twice daily for 30 days. - sucralfate (CARAFATE) 1 gram tablet Take 1 tablet by mouth twice daily. - ondansetron orally disintegrating (ZOFRAN ODT) 4 mg disintegrating tablet Take 1 tablet by mouth every 8 hours as needed for nausea/vomiting. - cholecalciferol, vitamin D3, (VITAMIN D3) 100 mcg (4,000 unit) cap Take 1 capsule by mouth once daily. - acetaminophen (TYLENOL EXTRA STRENGTH) 500 mg tablet Take 500 mg by mouth every 8 hours as needed. - pramipexole (MIRAPEX) 0.25 mg tablet Take 1 tablet by mouth daily at bedtime. - metoprolol succinate ER (TOPROL XL) 25 mg 24 hr tablet Take 1 tablet by mouth once daily. - loratadine (CLARITIN) 10 mg tablet Take 1 tablet by mouth once daily. - pantoprazole DR (PROTONIX) 40 mg tablet Take 1 tablet by mouth once daily. - simvastatin (ZOCOR) 40 mg tablet Take 1 tablet by mouth daily at bedtime. - levothyroxine (LEVOXYL) 88 mcg tablet Take 1 tablet by mouth once daily. Take on empty stomach. For Thyroid - albuterol HFA (PROAIR HFA) 90 mcg/actuation inhaler Inhale 2 Puffs as instructed every 4 hours as needed. - fluticasone (FLONASE) 50 mcg/actuation nasal spray Use 2 Sprays in each nostril once daily. Rinse mouth after use. - estradiol (ESTRACE) 0.01 % (0.1 mg/gram) vaginal cream Use small amount at vaginal opening 3 nights a week for 4 weeks Problem List As Of Date 05/30/2021 Noted Resolved Hyperlipidemia LDL goal <100 [E78.5] [...] of both lower extremities*04/11/2021 Encounter Status:Closed by KELLIE HALEY on 05/30/21 [facility] XR Abdomen Supine and Uprigh ton 04-04-2021 IMPRESSION: Nonobstructive bowel gas pattern with fecal retention. Internet Sales Consultant: MONTEZ Transcribe Date/Time: Apr 04 2021 6:21P Dictated by : JUMANA SMYTH MD This examination was interpreted and the report reviewed and electronically signed by: JUMANA SMYTH MD on Apr 04 2021 6:30PM [facility] DIVISION OF RADIOLOGY * * *Final Report* * * DATE OF EXAM: Apr 04 2021 4:18PM WOX 5289 - XR ABDOMEN 1V SUPINE / PROCEDURE REASON: Acute constipation * * * * Physician Interpretation * * * * EXAMINATION: XR ABDOMEN 1V SUPINE HISTORY: Pt states history of constipation. Pt has not had a bowel movement in 5 days. Acute constipation. TECHNIQUE: XR ABDOMEN 1V SUPINE Laterality: NOT APPLICABLE Number of different views (projections): 2 M: XB_1 COMPARISON: Comparison is made to prior CT abdomen pelvis dated 16 December 2019 and 08 July 2018 RESULT: Supine views of the abdomen demonstrate a nonobstructive bowel gas pattern with fecal retention. The soft tissues and bony structures are unremarkable. There are no pathologic calculi. DIVISION OF RADIOLOGY Provider, [facility] - 04/04/2021 * * *Final Report* * * DATE OF EXAM: Apr 04 2021 4:18PM WOX 5289 - XR ABDOMEN 1V SUPINE / PROCEDURE REASON: Acute constipation * * * * Physician Interpretation * * * * EXAMINATION: XR ABDOMEN 1V SUPINE HISTORY: Pt states history of constipation. Pt has not had a bowel movement in 5 days. Acute constipation. TECHNIQUE: XR ABDOMEN 1V SUPINE Laterality: NOT APPLICABLE Number of different views (projections): 2 M: XB_1 COMPARISON: Comparison is made to prior CT abdomen pelvis dated 16 December 2019 and 08 July 2018 RESULT: Supine views of the abdomen demonstrate a nonobstructive bowel gas pattern with fecal retention. The soft tissues and bony structures are unremarkable. There are no pathologic calculi. IMPRESSION IMPRESSION: Nonobstructive bowel gas pattern with fecal retention. Internet Sales Consultant: PSCB Transcribe Date/Time: Apr 04 2021 6:21P Dictated by : JUMANA SMYTH MD This examination was interpreted and the report reviewed and electronically signed by: JUMANA SMYTH MD on Apr 04 2021 6:30PM [facility] Radiology Study observation (narrative) [facility] XR Abdomen Supine and Uprigh tOrdered By: Ccf Provider on 04-04-2021 [facility] US LIVERon 02-04-2018 US LIVER Name: HALLIE GUZMAN STUDY:US LIVER; 02/04/2018 9:46 am INDICATION:Signs/Sympto ms: abdminal pain I87.8 Other specified disorders ofveins. COMPARISON:CT dated 12/24/2017. ORDERING CLINICIAN:ERICKA GONZALEZ TECHNIQUE:Multiple images of the right upper quadrant were obtained. Attemptswere made to contact the ordering physician regarding Dopplerultrasound but this was unsuccessful. Appropriate Dopplers werehowever performed given the requested indication. FINDINGS:LIVER:The liver is echogenic in appearance, consistant with fattyinfiltration. Liver length is 13.3 cm. The main portal vein, and leftand right portal vein are patent with appropriately directed flow.Again seen as on CT, there is a an echogenic mass abutting or arisingfrom the left portal vein. This lesion measures 1.6 x 1.1 x 1.5 cm. GALLBLADDER:Absent BILIARY TREE:Nondilated PANCREAS:Visualized pancreas is unremarkable. RIGHT KIDNEY:10.1 cm in length. Renal parenchyma is unremarkable. 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 Anabutting mass is favored; the left portal vein does contain flow,rather similar to the appearance on CT. MR can be considered as abetter means of assessing a hepatic mass than CT.Electronically signed by: DORYS EWING MD, PHD Normal [facility] BD CT ABDOMEN AND PELVIS WIT H CONTRASTon 12-24-[address] ABDOMEN AND PELVIS WITH CONTRAST Name: HALLIE GUZMAN STUDY:BD CT ABDOMEN AND PELVIS WITH CONTRAST; 12/24/2017 2:17 pm INDICATION:Signs/Sympto ms: right sided abdominal pain. COMPARISON:None. ORDERING CLINICIAN:ERICKA GONZALEZ TECHNIQUE:CT of the abdomen and pelvis was performed. Standard contiguous axialimages were obtained at 3 mm slice thickness through the abdomen andpelvis. Coronal and sagittal reconstructions at 3 mm slice thicknesswere performed. 95 ml of contrast Optiray 350 were administered intravenously withoutimmediate complication. FINDINGS:LOWER CHEST:The visualized lung base is unremarkable. The heart is normal in sizewithout pericardial effusion. No pleural effusion is present.Visualized distal esophagus appears normal. ABDOMEN: LIVER:There is heterogeneous attenuation of the liver, likely related tofatty infiltration. Within the left portal vein, there is a focal filling defectmeasuring 1.7 cm, which may represent a chronic thrombus adherent tothe vessel wall versus a possible benign mass of unclear etiology.This is best seen on sagittal view 48/116. BILE DUCTS:The intrahepatic and extrahepatic ducts are not dilated. GALLBLADDER:The gallbladder is not definitely visualized. PANCREAS:The pancreas appears unremarkable without evidence of ductaldilatation or masses. SPLEEN:The spleen is normal in size. There is a 7 mm hypodense lesion, whichis not fully characterized. ADRENAL GLANDS:Bilateral adrenal glands appear normal. KIDNEYS AND URETERS:The kidneys are normal in size and enhance symmetrically. There is aexophytic lesion measuring 1.5 x 1.3 cm arising from the interpole ofthe left kidney, which demonstrates intermediate attenuation. Nohydroureteronephrosis or nephroureterolithiasis is identified. PELVIS: BLADDER:Bladder is decompressed, limiting evaluation. REPRODUCTIVE ORGANS:No pelvic masses visualized. BOWEL:The stomach is unremarkable. The small and large bowel are normal incourse and caliber. There are postoperative changes consistent withsigmoid colectomy and end to end anastomosis. There is mildsurrounding perirectal inflammatory stranding, which may bepostoperative in etiology. There are persistent scattered colonicdiverticula without evidence of diverticulitis. The appendix is notvisualized. VESSELS:There is no aneurysmal dilatation of the abdominal aorta. The IVCappears normal. There are mild atherosclerotic calcifications withscattered mural thrombus throughout the abdominal aorta. PERITONEUM/RETROPERITON EUM/LYMPH NODES:There is no free or loculated fluid collection, no freeintraperitoneal air. The retroperitoneum appears normal. Noabdominopelvic lymphadenopathy is present. BONES AND ABDOMINAL WALL:No suspicious osseous lesions are identified. Degenerative discogenicdisease is noted in the lower thoracic and lumbar spine. IMPRESSION:1. Within the left portal vein, there is a focal filling defect,which may represent a chronic thrombus adherent to the vessel wallversus a possible benign mass of unclear etiology. Continuedfollow-up with ultrasound is recommended.2. Intermediate attenuating lesion arising from the interpole of theleft kidney. Further characterization may be obtained with triplephase CT/MRI on a nonemergent basis.3. Postoperative changes consistent with sigmoid colectomy hebpdh-ok-sde anastomosis. Mild surrounding perirectal inflammatorystranding is likely postoperative in etiology.4. Subcentimeter hypodense lesion in the spleen, which is not fullycharacterized.5. Fatty infiltration of the liver.I personally reviewed the images/study and I agree with the findingsas stated. This study was interpreted at [facility], [place], [place].Electronically signed by: ALEX BEAR MD [facility] Discharge Summaryon 12-04-19 Discharge Summary Send Summary:Dischar ge Summary Providers:Provider Role Provider Name? Referring Loree Morgan? Attending Loree Morgan? Primary Nahed Faust ANote Recipients: Nahed Faust MD - [id number] []Discharge:Summary:Adm ission Date: .11-Nov-2017 07:33:00Discharge Date: [id number] Physician at Discharge: Loree MorganAdmission Reason: DiverticultisisFinal Discharge Diagnoses: Sigmoid diverticulitisProcedure s: Date: 11-Nov-2017 11:52:00Procedure Name: Exploratory laparotomy sigmoid colectomy and end to endanastomosisCondition at Discharge: SatisfactoryDisposition at Discharge: .HomeHospital Course:This is a 67 yr old with long standing history of tortuous sigmoid colon.Previous colonoscopies demonstrate diverticulosis, however no history ofdiverticulitis. CT of abdomen on 09/25/17 showed diverticulosis of descendingcolon and sigmoid colon with mild wall thickening. GGE was attempted butaborted due to inability to prep. On 11/11/17 patient underwent Ex lap sigmoidresection with end to end anastomosis. After discharge from PACU, patient wasadmitted to regular nursing floor. Pain was controlled with CELL ASSEMBLY PINNER pump. Shecontinued to do well with minimal nausea. Indwelling rodriguez was removed and shewas able to void without issue. She was noted to pass flatus on POD #1.Slowly diet was advanced to a soft diet as tolerated. She was noted to havereturn of bowel function with BM on the day of discharge. At the time ofdischarge, she was tolerating diet, pain was controlled and she was happy todischarge. She will follow up in ambulatory clinic in couple weeks for woundcheck.Discharge Information:and Continuing Care:Discharge Instructions:Activity: activity as tolerated. May shower.. May not drive while taking narcotics. No pushing, pulling, or lifting objects greater than 10 pounds. Weight-bearing Instructions: full weight bearing bilateral. slowly increase activity as toleratedNutrition/Diet : resume normal diet Diet Consistency/Texture: soft, soft diet x 4 weeks, Avoid rawfruits and vegetables for couple weeks and slowly advance into diet astolerated. Appetitie will return slowly, eat smaller more frequent meals atfirst, push away from table once full. Encourage Fluids: Drink plenty of a variety of fluids to preventdehydration. Signs of dehydration are: dry mouth, dark yellow urine in smallamounts, and dizziness with change in position or increased feeling ofweakness/tiredness.Wo und Care: Wound Site: abdomen Wound Type: surgical incision Change Dressin times a day as needed Cleanse With: soap and water Cover With: no dressing, leave open to air, unless you wish toprotect your clothing Instructions: no lotions, creams, or tub soaks Other Instructions: You have kyle remaining in your incision.These should come out around 11/22 and can be removed local by your doctor. Ifyou can't arrange an appointment for staple removal, please call our office [phone]. A follow up appointment for one month will be made for youprior to your discharge.This incision may get wet, pat dry and cover as needed to protect yourclothing, otherwise you may leave this incision open to air.Additional Orders: Additional Instructions: Bowel function will be irregular at first.You may experience some loose stool alternating with constipation. This isnormal. As your diet advances and you begin to eat more regularly, your stoolpattern will also become more regular.Colace is a stool softener that you can take twice per day to prevent hardstool or constipation. You will be instructed to use a stool softener while onnarcotics, as they may cause constipation. You should not take the Colace forloose watery stool. This is an over the counter medication.For diarrhea stools incorporate foods from the BRAT diet. This is a bland dietthat consists of foods low in fiber: bananas, rice, applesauce and toast arestaples of the diet. You can also add tea, tapioca and yogurt if you wouldlike. Be sure to drink plenty of fluids if you are having diarrhea, as you canbecome dehydrated quickly.Follow Up Appointments:Follow-Up Appointment 01: Physician/Dept/Service: Ericka Gonzalez, Nurse Practitioner for Mary Reason for Referral: Colorectal Surgery Scheduled Date/Time: 17-Dec-2017 11:00 Location: [address], [facility] [address] [id number] Medications: Home Medication levothyroxine 50 mcg (0.05 mg) oral tablet - 1 tab(s) orally once a day simvastatin 40 mg oral tablet - 1 tab(s) orally once a day esomeprazole 40 mg oral delayed release capsule - 1 cap(s) orally once a day sucralfate 1 g oral tablet - 1 tab(s) orally prn Librax - orally prn acetaminophen 325 mg oral tablet - 2 tab(s) orally every 6 hours PRN Medication oxyCODONE 5 mg oral tablet - 1 tab(s) orally every 6 hours x 7 days, As Needed-Pain - Mod (4-6) ICD10 G89.18Lab Results - Pending: NoneRadiology Results - Pending: NoneElectronic Signatures:Holly Brady (BURIAL VAULT SETTER-AUDIO VISUAL EQUIPMENT RENTAL CLERK) (Signed 03-Dec-2017 14:23) Authored: Send Summary, Summary Content, Ongoing Care,Signature/Cosignat ure/AttestationLast Updated: 03-Dec-2017 14:23 by Holly Brady (BURIAL VAULT SETTER-AUDIO VISUAL EQUIPMENT RENTAL CLERK) Normal [facility] ANTI PF4 PATH REVIEWon 11-14 PATH REVIEW-HIT STANLEY LINDSAY Normal [facility] Comment on above: Result Comment: By h er/his signature above, the Pathologist listed as making the final interpretation certifies that she/he has personally reviewed this case. Performed By: #### C OAGS ####[facility] [place] [address] ANTI-PLT FACTOR 4 AB WITH SE ROTONIN RELEASE ASSAY REFLEXon 11-14-2017 INTERPRETATION Negative Normal [facility] Comment on above: Result Comment: ANTI -PLATELET FACTOR 4 ANTIBODY IS NOTDETECTED BY ASHLEY ASSAY.THESE RESULTS SHOULD BE USED IN CONJUNCTIONWITH CLINICAL FINDINGS.CLINICAL CORRELATION IS RECOMMENDED. Performed By: #### C OAGS ####[facility] [place] [address] SERUM+PLT FACTOR 4 0.143 OD UNITS Normal <0.400 [facility] Comment on above: Performed By: #### C OAGS ####[facility] [place] [address] BASIC METABOLIC PANELon 10-31 Anion gap 12 mmol/L Normal 10 - 20 [facility] Comment on above: Performed By: #### C OAGS ####[facility] [place] [address] Bicarbonate (HCO3) 25 mmol/L Normal 21 - 32 [facility] Comment on above: Performed By: #### C OAGS ####[facility] [place] [address] Calcium 9.2 mg/dL Normal 8.6 - 10.6 [facility] Comment on above: Performed By: #### C OAGS ####[facility] [place] [address] Chloride 113 mmol/L High 98 - 107 [facility] Comment on above: Performed By: #### C OAGS ####[facility] [place] [address] Creatinine 0.68 mg/dL Normal 0.50 - 1.05 [facility] Comment on above: Performed By: #### C OAGS ####[facility] [place] [address] eGFR (non-black) mL/min/{1.73_m2} Normal >60 [facility] Comment on above: Result Comment: CALC ULATIONS OF ESTIMATED GFR ARE PERFORMED USING THE MDRD STUDY EQUATION FOR THE IDMS-TRACEABLE CREATININE METHODS. CLIN CHEM 2007;53:766-72 Performed By: #### C OAGS ####[facility] [place] [address] Glucose mass conc 95 mg/dL Normal 74 - 99 [facility] Comment on above: Performed By: #### C OAGS ####[facility] [place] [address] Potassium molar conc 3.5 mmol/L Normal 3.5 - 5.3 [facility] Comment on above: Performed By: #### C OAGS ####[facility] [place] [address] Sodium 146 mmol/L High 136 - 145 [facility] Comment on above: Performed By: #### C OAGS ####[facility] [place] [address] Urea nitrogen 8 mg/dL Normal 6 - 23 [facility] Comment on above: Performed By: #### C OAGS ####[facility] [place] [address] CBCon 11-14-2017 Erythrocyte distribution width Auto Ratio (RBC) 13.1 % Normal 11.5 - 14.5 [facility] Comment on above: Performed By: #### C OAGS ####[facility] [place] [address] Erythrocytes (RBC) 3.82 x10E12/L Low 4.00 - 5.20 [facility] Comment on above: Performed By: #### C OAGS ####[facility] [place] [address] Hematocrit (HCT) 35.3 % Low 36.0 - 46.0 [facility] Comment on above: Performed By: #### C OAGS ####[facility] [place] [address] Hemoglobin mass conc (Bld) 11.5 g/dL Low 12.0 - 16.0 [facility] Comment on above: Performed By: #### C OAGS ####[facility] [place] [address] MCHC mass conc (RBC) 32.6 g/dL Normal 32.0 - 36.0 [facility] Comment on above: Performed By: #### C OAGS ####[facility] [place] [address] MCV 92 fL Normal 80 - 100 [facility] Comment on above: Performed By: #### C OAGS ####[facility] [place] [address] Nucleated erythrocytes 0.0 /100 WBC Normal 0.0-0.0 [facility] Comment on above: Performed By: #### C OAGS ####[facility] [place] [address] Platelets 82 10*3/uL Low 150 - 450 [facility] Comment on above: Performed By: #### C OAGS ####[facility] [place] [address] WBC (Leukocytes) 4.4 10*3/uL Normal 4.4 - 11.3 [facility] Comment on above: Performed By: #### C OAGS ####[facility] [place] [address] CBCon 11-13-2017 Erythrocyte distribution width Auto Ratio (RBC) 13.2 % Normal 11.5 - 14.5 [facility] Comment on above: Performed By: #### C OAGS ####[facility] [place] [address] Erythrocytes (RBC) 4.17 x10E12/L Normal 4.00 - 5.20 [facility] Comment on above: Performed By: #### C OAGS ####[facility] [place] [address] Hematocrit (HCT) 37.6 % Normal 36.0 - 46.0 [facility] Comment on above: Performed By: #### C OAGS ####[facility] [place] [address] Hemoglobin mass conc (Bld) 12.3 g/dL Normal 12.0 - 16.0 [facility] Comment on above: Performed By: #### C OAGS ####[facility] [place] [address] MCHC mass conc (RBC) 32.7 g/dL Normal 32.0 - 36.0 [facility] Comment on above: Performed By: #### C OAGS ####[facility] [place] [address] MCV 90 fL Normal 80 - 100 [facility] Comment on above: Performed By: #### C OAGS ####[facility] [place] [address] Nucleated erythrocytes 0.0 /100 WBC Normal 0.0-0.0 [facility] Comment on above: Performed By: #### C OAGS ####[facility] [place] [address] Platelets 86 10*3/uL Low 150 - 450 [facility] Comment on above: Performed By: #### C OAGS ####[facility] [place] [address] WBC (Leukocytes) 6.6 10*3/uL Normal 4.4 - 11.3 [facility] Comment on above: Performed By: #### C OAGS ####[facility] [place] [address] Erythrocyte distribution width Auto Ratio (RBC) 13.5 % Normal 11.5 - 14.5 [facility] Comment on above: Performed By: #### C OAGS ####[facility] [place] [address] Erythrocytes (RBC) 4.00 x10E12/L Normal 4.00 - 5.20 [facility] Comment on above: Performed By: #### C OAGS ####[facility] [place] [address] Hematocrit (HCT) 37.7 % Normal 36.0 - 46.0 [facility] Comment on above: Performed By: #### C OAGS ####[facility] [place] [address] Hemoglobin mass conc (Bld) 12.1 g/dL Normal 12.0 - 16.0 [facility] Comment on above: Performed By: #### C OAGS ####[facility] [place] [address] MCHC mass conc (RBC) 32.1 g/dL Normal 32.0 - 36.0 [facility] Comment on above: Performed By: #### C OAGS ####[facility] [place] [address] MCV 94 fL Normal 80 - 100 [facility] Comment on above: Performed By: #### C OAGS ####[facility] [place] [address] Nucleated erythrocytes 0.0 /100 WBC Normal 0.0-0.0 [facility] Comment on above: Performed By: #### C OAGS ####[facility] [place] [address] Platelets 80 10*3/uL Low 150 - 450 [facility] Comment on above: Performed By: #### C OAGS ####[facility] [place] [address] WBC (Leukocytes) 6.6 10*3/uL Normal 4.4 - 11.3 [facility] Comment on above: Performed By: #### C OAGS ####[facility] [place] [address] RENAL FUNCTION PANELon 11-13 Albumin 3.0 g/dL Low 3.4 - 5.0 [facility] Comment on above: Performed By: #### C OAGS ####[facility] [place] [address] Anion gap 11 mmol/L Normal 10 - 20 [facility] Comment on above: Performed By: #### C OAGS ####[facility] [place] [address] Bicarbonate (HCO3) 26 mmol/L Normal 21 - 32 [facility] Comment on above: Performed By: #### C OAGS ####[facility] [place] [address] Calcium 9.2 mg/dL Normal 8.6 - 10.6 [facility] Comment on above: Performed By: #### C OAGS ####[facility] [place] [address] Chloride 110 mmol/L High 98 - 107 [facility] Comment on above: Performed By: #### C OAGS ####[facility] [place] [address] Creatinine 0.71 mg/dL Normal 0.50 - 1.05 [facility] Comment on above: Performed By: #### C OAGS ####[facility] [place] [address] eGFR (non-black) mL/min/{1.73_m2} Normal >60 [facility] Comment on above: Performed By: #### C OAGS ####[facility] [place] [address] Result Comment: CALC ULATIONS OF ESTIMATED GFR ARE PERFORMED USING THE MDRD STUDY EQUATION FOR THE IDMS-TRACEABLE CREATININE METHODS. CLIN CHEM 2007;53:766-72 Glucose mass conc 103 mg/dL High 74 - 99 [facility] Comment on above: Performed By: #### C OAGS ####[facility] [place] [address] Phosphate 2.4 mg/dL Low 2.5 - 4.9 [facility] Comment on above: Result Comment: The performance characteristics of phosphorus testing in heparinized plasma have been validated by the individual laboratory site where testing is performed. Testing on heparinized plasma is not approved by the FDA; however, such approval is not necessary. Performed By: #### C OAGS ####[facility] [place] [address] Potassium molar conc 3.7 mmol/L Normal 3.5 - 5.3 [facility] Comment on above: Performed By: #### C OAGS ####[facility] [place] [address] Sodium 143 mmol/L Normal 136 - 145 [facility] Comment on above: Performed By: #### C OAGS ####[facility] [place] [address] Urea nitrogen 8 mg/dL Normal 6 - 23 [facility] Comment on above: Performed By: #### C OAGS ####[facility] [place] [address] BASIC METABOLIC PANELon 10-31 Anion gap 14 mmol/L Normal 10 - 20 [facility] Comment on above: Performed By: #### C OAGS ####[facility] [place] [address] Bicarbonate (HCO3) 24 mmol/L Normal 21 - 32 [facility] Comment on above: Performed By: #### C OAGS ####[facility] [place] [address] Calcium 9.0 mg/dL Normal 8.6 - 10.6 [facility] Comment on above: Performed By: #### C OAGS ####[facility] [place] [address] Chloride 109 mmol/L High 98 - 107 [facility] Comment on above: Performed By: #### C OAGS ####[facility] [place] [address] Creatinine 0.61 mg/dL Normal 0.50 - 1.05 [facility] Comment on above: Performed By: #### C OAGS ####[facility] [place] [address] eGFR (non-black) mL/min/{1.73_m2} Normal >60 [facility] Comment on above: Performed By: #### C OAGS ####[facility] [place] [address] Result Comment: CALC ULATIONS OF ESTIMATED GFR ARE PERFORMED USING THE MDRD STUDY EQUATION FOR THE IDMS-TRACEABLE CREATININE METHODS. CLIN CHEM 2007;53:766-72 Glucose mass conc 82 mg/dL Normal 74 - 99 [facility] Comment on above: Performed By: #### C OAGS ####[facility] [place] [address] Potassium molar conc 4.2 mmol/L Normal 3.5 - 5.3 [facility] Comment on above: Performed By: #### C OAGS ####[facility] [place] [address] Sodium 143 mmol/L Normal 136 - 145 [facility] Comment on above: Performed By: #### C OAGS ####[facility] [place] [address] Urea nitrogen 8 mg/dL Normal 6 - 23 [facility] Comment on above: Performed By: #### C OAGS ####[facility] [place] [address] CBCon 11-12-2017 Erythrocyte distribution width Auto Ratio (RBC) 13.5 % Normal 11.5 - 14.5 [facility] Comment on above: Performed By: #### C BC ####[facility] [place] [address] Erythrocytes (RBC) 4.31 x10E12/L Normal 4.00 - 5.20 [facility] Comment on above: Performed By: #### C BC ####[facility] [place] [address] Hematocrit (HCT) 40.9 % Normal 36.0 - 46.0 [facility] Comment on above: Performed By: #### C BC ####[facility] [place] [address] Hemoglobin mass conc (Bld) 12.9 g/dL Normal 12.0 - 16.0 [facility] Comment on above: Performed By: #### C BC ####[facility] [place] [address] [facility] mass conc (RBC) 31.5 g/dL Low 32.0 - 36.0 [facility] Comment on above: Performed By: #### C BC ####[facility] [place] [address] MCV 95 fL Normal 80 - 100 [facility] Comment on above: Performed By: #### C BC ####[facility] [place] [address] Nucleated erythrocytes 0.0 /100 WBC Normal 0.0-0.0 [facility] Comment on above: Performed By: #### C BC ####[facility] [place] [address] Platelets 111 10*3/uL Low 150 - 450 [facility] Comment on above: Performed By: #### C BC ####[facility] [place] [address] WBC (Leukocytes) 10.0 10*3/uL Normal 4.4 - 11.3 [facility] Comment on above: Performed By: #### C BC ####[facility] [place] [address] ABO/RH GROUP TESTon 11-11-19 18 ABO TYPE A Normal [facility] Comment on above: Performed By: #### V ERAB ####[facility] [place] [address] RH TYPE Negative Normal [facility] Comment on above: Performed By: #### V ERAB ####[facility] [place] [address] [facility] Surgical Pathology Depar tmenton 11-11-2017 [facility] Surgical Pathology Department Name HALLIE GUZMAN Pathologist: SHADE CAAL, MDDate of Procedure: 11/11/2017Date Received: 11/11/2017Date Reported 11/13/2017Submitting Physician: LOREE W. CATHY, MDLocation: TASA Copy To/Referring/Attending: LOREE MORGAN MD Other External # FINAL DIAGNOSISA. COLON, SIGMOID, RESECTION:-- DIVERTICULOSIS WITH ASSOCIATED COLONIC MUCOSAL REACTIVE CHANGES.-- FOCAL DENSE SEROSAL FIBROUS ADHESIONS WITH CHRONIC INFLAMMATION.-- THREE BENIGN REACTIVE LYMPH NODES.-- NEGATIVE FOR DYSPLASIA AND MALIGNANCY. The gross and/or microscopic findings were reviewed in conjunction withpathology resident, Brian Agustin M.D. Electronically Signed Out By SHADE CAAL MD/Fauzia the signature on this report, the individual or group listed as making theFinal Interpretation/Diagnosi s certifies that they have reviewed this case. Clinical History:Diverticular diseaseSpecimens Submitted As:A: SIGMOID COLON Gross Description:Received fresh, labeled with the patient's name and hospital number, is anun-oriented segment of colon with attached mesentery and fibrofatty tissuemeasuring 18 cm in length and 2.0 cm in diameter. The serosal surface isthickened, pink-nicholson, and demonstrates an adhesion measuring 1.2 cm in greatestdimension. The bowel wall demonstrates irregular diffuse thickening, up to 0.6cm. A stricture is not present. Multiple diverticula are present, rangingfrom 0.2 cm to 0.5 cm, none of which appear perforated. The process does notextend to the lines of resection. Polyps are not present. The attachedmesentery reveals one townsend, soft nodule resembling a lymph node measuring 0.5 cmin greatest dimension. Tissue is submitted to [facility]. Cottage Parent sections aresubmitted in 5 cassettes.DJOSummary of Cassettes:Specimen Label Site A 1-3 diverticula 4 serosal adhesion 5 one possible lymph noded11/11/2017 Normal [facility] Comment on above: Performed By: #### C OAGS ####[facility] [place] [address] C-REACTIVE PROTEINon 018 C reactive protein (CRP) 0.28 mg/dL Normal [facility] Comment on above: Result Comment: REF VALUE< 1.00 Performed By: #### C RP ####[facility] [place] [address] CBCon 11-01-2017 Erythrocyte distribution width Auto Ratio (RBC) 13.2 % Normal 11.5 - 14.5 [facility] Comment on above: Performed By: #### C BC ####[facility] [place] [address] Erythrocytes (RBC) 5.36 x10E12/L High 4.00 - 5.20 [facility] Comment on above: Performed By: #### C BC ####[facility] [place] [address] Hematocrit (HCT) 50.6 % High 36.0 - 46.0 [facility] Comment on above: Performed By: #### C BC ####[facility] [place] [address] Hemoglobin mass conc (Bld) 16.0 g/dL Normal 12.0 - 16.0 [facility] Comment on above: Performed By: #### C BC ####[facility] [place] [address] MCHC mass conc (RBC) 31.6 g/dL Low 32.0 - 36.0 [facility] Comment on above: Performed By: #### C BC ####[facility] [place] [address] MCV 94 fL Normal 80 - 100 [facility] Comment on above: Performed By: #### C BC ####[facility] [place] [address] Nucleated erythrocytes 0.0 /100 WBC Normal 0.0-0.0 [facility] Comment on above: Performed By: #### C BC ####[facility] [place] [address] Platelets 145 10*3/uL Low 150 - 450 [facility] Comment on above: Performed By: #### C BC ####[facility] [place] [address] WBC (Leukocytes) 5.9 10*3/uL Normal 4.4 - 11.3 [facility] Comment on above: Performed By: #### C BC ####[facility] [place] [address] COAGULATION SCREENon 018 aPTT 29 s Normal 25 - 36 [facility] Comment on above: Result Comment: THE APTT IS NO LONGER USED FOR MONITORING UNFRACTIONATED HEPARIN THERAPY. FOR MONITORING HEPARIN THERAPY, USE THE HEPARIN ASSAY. Performed By: #### C OAGS ####[facility] [place] [address] INR Coag RelTime (PPP) 1.0 {INR} Normal 0.9 - 1.1 [facility] Comment on above: Performed By: #### C OAGS ####[facility] [place] [address] Prothrombin time (PT) Coag time (PPP) 11.4 s Normal 9.8 - 12.7 [facility] Comment on above: Performed By: #### C OAGS ####[place] [id number] [place] [address] COMPREHENSIVE PANELon 2017 Alanine aminotransferase (ALT) 20 U/L Normal 7 - 45 [facility] Comment on above: Result Comment: Nellie ents treated with Sulfasalazine may generate falsely decreased results for ALT. Performed By: #### C MP ####[facility] [place] [address] Albumin 4.5 g/dL Normal 3.4 - 5.0 [facility] Comment on above: Performed By: #### C MP ####[facility] [place] [address] Alkaline phosphatase (ALP) 85 U/L Normal 33 - 136 [facility] Comment on above: Performed By: #### C MP ####[facility] [place] [address] Anion gap 16 mmol/L Normal 10 - 20 [facility] Comment on above: Performed By: #### C MP ####[facility] [place] [address] Aspartate aminotransferase (AST) 18 U/L Normal 9 - 39 [facility] Comment on above: Result Comment: MILD HEMOLYSIS DETECTED. The result may be falsely elevated due tohemolysis or other interferents. Clinical correlation is recommended.Repeat testing may be considered. Performed By: #### C MP ####[facility] [place] [address] Bicarbonate (HCO3) 26 mmol/L Normal 21 - 32 [facility] Comment on above: Performed By: #### C MP ####[facility] [place] [address] Bilirubin (total) 0.4 mg/dL Normal 0.0 - 1.2 [facility] Comment on above: Performed By: #### C MP ####[facility] [place] [address] Calcium 10.5 mg/dL Normal 8.6 - 10.6 [facility] Comment on above: Performed By: #### C MP ####[facility] [place] [address] Chloride 106 mmol/L Normal 98 - 107 [facility] Comment on above: Performed By: #### C MP ####[facility] [place] [address] Creatinine 0.79 mg/dL Normal 0.50 - 1.05 [facility] Comment on above: Performed By: #### C MP ####[facility] [place] [address] eGFR (non-black) mL/min/{1.73_m2} Normal >60 [facility] Comment on above: Result Comment: CALC ULATIONS OF ESTIMATED GFR ARE PERFORMED USING THE MDRD STUDY EQUATION FOR THE IDMS-TRACEABLE CREATININE METHODS. CLIN CHEM 2007;53:766-72 Performed By: #### C MP ####[facility] [place] [address] Glucose mass conc 66 mg/dL Low 74 - 99 [facility] Comment on above: Performed By: #### C MP ####[facility] [place] [address] Potassium molar conc 4.6 mmol/L Normal 3.5 - 5.3 [facility] Comment on above: Result Comment: MILD HEMOLYSIS DETECTED. The result may be falsely elevated due tohemolysis or other interferents. Clinical correlation is recommended.Repeat testing may be considered. Performed By: #### C MP ####[facility] [place] [address] Protein 6.4 g/dL Normal 6.4 - 8.2 [facility] Comment on above: Performed By: #### C MP ####[facility] [place] [address] Sodium 143 mmol/L Normal 136 - 145 [facility] Comment on above: Performed By: #### C MP ####[facility] [place] [address] Urea nitrogen 16 mg/dL Normal 6 - 23 [facility] Comment on above: Performed By: #### C MP ####[facility] [place] [address] TYPE + SCREENon 11-01-2017 ABO TYPE A Normal [facility] Comment on above: Performed By: #### T +S ####[facility] [place] [address] ANTIBODY SCREEN Negative Normal [facility] Comment on above: Performed By: #### T +S ####[facility] [place] [address] RH TYPE Negative Normal [facility] Comment on above: Performed By: #### T +S ####[facility] [place] [address] UA MICROSCOPICon 11-01-2017 Erythrocytes (RBC) 1 /HPF Normal 0-5 [facility] Comment on above: Performed By: #### U AMIC ####[facility] [place] [address] Urine, bacteria in sediment 1+ /HPF Abnormal [facility] Comment on above: Performed By: #### U AMIC ####[facility] [place] [address] Urine, mucus presence in sediment 1+ /LPF Normal [facility] Comment on above: Performed By: #### U AMIC ####[facility] [place] [address] WBC (Leukocytes) 1 /HPF Normal 0-5 [facility] Comment on above: Performed By: #### U AMIC ####[facility] [place] [address] URINALYSISon 11-01-2017 Bilirubin (total) Negative Normal NEGATIVE [facility] Comment on above: Performed By: #### U A ####[facility] [place] [address] BLOOD Negative Normal NEGATIVE [facility] Comment on above: Performed By: #### U A ####[facility] [place] [address] Glucose mass conc Negative Normal NEGATIVE [facility] Comment on above: Performed By: #### U A ####[facility] [place] [address] pH of blood 7.0 [pH] Normal 5.0 - 8.0 [facility] Comment on above: Performed By: #### U A ####[facility] [place] [address] Protein Negative Normal NEGATIVE [facility] Comment on above: Performed By: #### U A ####[facility] [place] [address] Urine, appearance CLEAR Normal CLEAR [facility] Comment on above: Performed By: #### U A ####[facility] [place] [address] Urine, color STRAW Normal STRAW,YELLOW [facility] Comment on above: Performed By: #### U A ####[facility] [place] [address] Urine, ketones presence Negative Normal NEGATIVE [facility] Comment on above: Performed By: #### U A ####[facility] [place] [address] Urine, leukocyte esterase presence TRACE Abnormal NEGATIVE [facility] Comment on above: Performed By: #### U A ####[facility] [place] [address] Urine, nitrite presence Negative Normal NEGATIVE [facility] Comment on above: Performed By: #### U A ####[facility] [place] [address] Urine, specific gravity 1.008 Normal 1.005 - 1.035 [facility] Comment on above: Performed By: #### U A ####[facility] [place] [address] Urine, urobilinogen <2.0 Normal 0.0 - 1.9 [facility] [place] Comment on above: Performed By: #### U A ####[facility] [place] [address] URINE CULTURE,BACTERIALon URINE CULTURE,BACTERIAL PATIENT: HALLIE GUZMAN LOCATION: [facility] BHAVYA#: [id number] : 52 AGE: SEX: F ORDERED BY: CORNELIA MORGAN: URINE COLLECTED: 11/01/17 15:50ANTIBIOTICS AT JAYNE.: RECEIVED : 11/01/17 18:57SITE: Clean Catch/Voided R E S U L T S URINE CULTURE,BACTERIAL FINAL 11/02/17 12:50 MULTIPLE ORGANISMS PRESENT, PROBABLE CONTAMINATION PLEASE REPEAT CULTURE. Normal [facility] Comment on above: Performed By: #### U RINC ####[facility] [place] [address] Office Visit: Spine Visit- R sided neck painon 07-08-2017 Protein mass conc Done Invalid Interpretation Code [facility] Work Phone: Office Visit: Spine Visit- N EW'on 07-03-2017 Protein mass conc Done Invalid Interpretation Code [facility] Work Phone: [phone] Tobacco smoking status NHIS Never Invalid Interpretation Code [facility] Work Phone: [phone] Tobacco smoking status NHIS Never smoker Invalid Interpretation Code [facility] Work Phone: [phone] Vital Signs Date Time Vital Sign Value Performing Clinician Facility 12-19-2024 10:43-0400 Body mass index (BMI) [Ratio] 25.54 kg/m2 Viviana Micheline B[employer]IAL VA[employer]TER.AUDIO VISUAL EQUIPMENT RENTAL CLERK Work Phone: [facility] 12-19-2024 10:43-0400 Body temperature 98.91 [degF] Viviana Byron BURIAL VAULT SETTER.AUDIO VISUAL EQUIPMENT RENTAL CLERK Work Phone: [facility] 12-19-2024 10:43-0400 Body weight 67.5 kg Viviana Byron BURIAL VAULT SETTER.AUDIO VISUAL EQUIPMENT RENTAL CLERK Work Phone: [facility] 12-19-2024 10:43-0400 Diastolic blood pressure 84 mm[Hg] Viviana Byron BURIAL VAULT SETTER.AUDIO VISUAL EQUIPMENT RENTAL CLERK Work Phone: [facility] 12-19-2024 10:43-0400 Heart rate 92 /min Viviana Byron BURIAL VAULT SETTER.AUDIO VISUAL EQUIPMENT RENTAL CLERK Work Phone: [facility] 12-19-2024 10:43-0400 Respiratory rate 16 /min Viviana Micheline BURIAL VAULT SETTER.AUDIO VISUAL EQUIPMENT RENTAL CLERK Work Phone: [facility] 12-19-2024 10:43-0400 SaO2% (BldA) [Mass fraction] 95 % Viviana Byron BURIAL VAULT SETTER.AUDIO VISUAL EQUIPMENT RENTAL CLERK Work Phone: [facility] 12-19-2024 10:43-0400 Systolic blood pressure 123 mm[Hg] Viviana Micheline BURIAL VAULT SETTER.AUDIO VISUAL EQUIPMENT RENTAL CLERK Work Phone: [facility] 12-17-2024 16:48-0400 Body temperature 98.7 [degF] Dr. Sarah Huynh MD Work Phone: [facility] 12-17-2024 16:48-0400 Diastolic blood pressure 72 mm[Hg] Dr. Sarah Huynh MD Work Phone: [facility] 12-17-2024 16:48-0400 Heart rate 96 /min Dr. Sarah Huynh MD Work Phone: [facility] 12-17-2024 16:48-0400 Respiratory rate 15 /min Dr. Sarah Huynh MD Work Phone: [facility] 12-17-2024 16:48-0400 SaO2% (BldA) [Mass fraction] 96 % Dr. Sarah Huynh MD Work Phone: [facility] 12-17-2024 16:48-0400 Systolic blood pressure 118 mm[Hg] Dr. Sarah Huynh MD Work Phone: [facility] 12-08-2024 07:48-0400 Body height 162.[address] Sarah Huynh MD Work Phone: [facility] 12-08-2024 07:48-0400 Body mass index (BMI) [Ratio] 26.6 kg/m2 Dr. Sarah Huynh MD Work Phone: [facility] 12-08-2024 07:48-0400 Body weight 70.[address] Sarah Huynh MD Work Phone: [facility] 12-08-2024 07:48-0400 Diastolic blood pressure 77 mm[Hg] Dr. Sarah Huynh MD Work Phone: [facility] 12-08-2024 07:48-0400 Heart rate 60 /min Dr. Sarah Huynh MD Work Phone: [facility] 12-08-2024 07:48-0400 Respiratory rate 18 /min Dr. Sarah Huynh MD Work Phone: [facility] 12-08-2024 07:48-0400 SaO2% (BldA) [Mass fraction] 97 % Dr. Sarah Huynh MD Work Phone: [facility] 12-08-2024 07:48-0400 Systolic blood pressure 120 mm[Hg] Dr. Sarah Huynh MD Work Phone: [facility] 09-09-2024 11:55-0500 Body height 162.[address] Sarah Huynh MD Work Phone: [facility] 09-09-2024 11:55-0500 Body mass index (BMI) [Ratio] 26.6 kg/m2 Dr. Sarah Huynh MD Work Phone: [facility] 09-09-2024 11:55-0500 Body temperature 97.9 [degF] Dr. Sarah Huynh MD Work Phone: [facility] 09-09-2024 11:55-0500 Body weight 70.[address] Sarah Huynh MD Work Phone: [facility] 09-09-2024 11:55-0500 Diastolic blood pressure 80 mm[Hg] Dr. Sarah Huynh MD Work Phone: [facility] 09-09-2024 11:55-0500 Heart rate 74 /min Dr. Sarah Huynh MD Work Phone: [facility] 09-09-2024 11:55-0500 SaO2% (BldA) [Mass fraction] 98 % Dr. Sarah Huynh MD Work Phone: [facility] 09-09-2024 11:55-0500 Systolic blood pressure 124 mm[Hg] Dr. Sarah Huynh MD Work Phone: [facility] 04-01-2024 14:47-0400 Body mass index (BMI) [Ratio] 27.74 kg/m2 Cash Lama MD Work Phone: [facility] 04-01-2024 14:47-0400 Body weight 73.3 kg Cash Lama MD Work Phone: [facility] 04-01-2024 14:47-0400 Diastolic blood pressure 83 mm[Hg] Cash Lama MD Work Phone: [facility] 04-01-2024 14:47-0400 Heart rate 63 /min Cash Lama MD Work Phone: [facility] 04-01-2024 14:47-0400 SaO2% (BldA) [Mass fraction] 98 % Cash Lama MD Work Phone: [facility] 04-01-2024 14:47-0400 Systolic blood pressure 131 mm[Hg] Cash Lama MD Work Phone: [facility] 12-08-2023 09:14-0400 Body temperature 97.9 [degF] Dr. Sarah Huynh Work Phone: [facility] 12-08-2023 09:14-0400 Diastolic blood pressure 62 mm[Hg] Dr. Sarah Huynh Work Phone: [facility] 12-08-2023 09:14-0400 Heart rate 75 /min Dr. Sarah Huynh Work Phone: [facility] 12-08-2023 09:14-0400 Respiratory rate 16 /min Dr. Sarah Huynh Work Phone: [facility] 12-08-2023 09:14-0400 SaO2% (BldA) [Mass fraction] 97 % Dr. Sarah Huynh Work Phone: [facility] 12-08-2023 09:14-0400 Systolic blood pressure 132 mm[Hg] Dr. Sarah Huynh Work Phone: [facility] 10-19-2023 13:08-0500 Body temperature 98.1 [degF] Dr. Sarah Huynh Work Phone: [facility] 10-19-2023 13:08-0500 Diastolic blood pressure 76 mm[Hg] Dr. Sarah Huynh Work Phone: [facility] 10-19-2023 13:08-0500 Heart rate 98 /min Dr. Sarah Huynh Work Phone: [facility] 10-19-2023 13:08-0500 Respiratory rate 12 /min Dr. Sarah Huynh Work Phone: [facility] 10-19-2023 13:08-0500 SaO2% (BldA) [Mass fraction] 97 % Dr. Sarah Huynh Work Phone: [facility] 10-19-2023 13:08-0500 Systolic blood pressure 118 mm[Hg] Dr. Sarah Huynh Work Phone: [facility] 09-13-2023 13:45-0500 Body height 162.56 cm DO Cash Hugo Work Phone: [facility] 09-13-2023 13:45-0500 Body mass index (BMI) [Ratio] 28 kg/m2 DO Cash Hugo Work Phone: [facility] 09-13-2023 13:45-0500 Body temperature 97 [degF] DO Cash Hugo Work Phone: [facility] 09-13-2023 13:45-0500 Body weight 74.04 kg DO Cash Hugo Work Phone: [facility] 09-13-2023 13:45-0500 Diastolic blood pressure 78 mm[Hg] DO Cash Hugo Work Phone: [facility] 09-13-2023 13:45-0500 Heart rate 59 /min DO Cash Hugo Work Phone: [facility] 09-13-2023 13:45-0500 Respiratory rate 17 /min DO Cash Hugo Work Phone: [facility] 09-13-2023 13:45-0500 SaO2% (BldA) [Mass fraction] 99 % DO Cash Hugo Work Phone: [facility] 09-13-2023 13:45-0500 Systolic blood pressure 125 mm[Hg] DO Cash Hugo Work Phone: [facility] 06-28-2023 11:57-0400 Body temperature 98.3 [degF] DO Cash Hugo Work Phone: [facility] 06-28-2023 11:57-0400 Diastolic blood pressure 82 mm[Hg] DO Cash Hugo Work Phone: [facility] 06-28-2023 11:57-0400 Heart rate 73 /min DO Cash Hugo Work Phone: [facility] 06-28-2023 11:57-0400 Respiratory rate 14 /min DO Cash Hugo Work Phone: [facility] 06-28-2023 11:57-0400 SaO2% (BldA) [Mass fraction] 96 % DO Cash Hugo Work Phone: [facility] 06-28-2023 11:57-0400 Systolic blood pressure 137 mm[Hg] DO Cash Hugo Work Phone: [facility] 04-10-2023 13:37-0400 Body weight 74.[address] Ash Roberts Work Phone: [facility] 04-10-2023 13:37-0400 Diastolic blood pressure 72 mm[Hg] Dr. Ash Roberts Work Phone: [facility] 04-10-2023 13:37-0400 Heart rate 73 /min Dr. Ash Roberts Work Phone: [facility] 04-10-2023 13:37-0400 Respiratory rate 18 /min Dr. Ash Roberts Work Phone: [facility] 04-10-2023 13:37-0400 Systolic blood pressure 122 mm[Hg] Dr. Ash Roberts Work Phone: [facility] 04-10-2023 09:41-0400 Body height 162.[address] Ash Roberts Work Phone: [facility] 04-08-2023 09:22-0400 Body height 162.6 cm Heather Sneed MD Work Phone: [facility] 04-08-2023 09:22-0400 Body weight 74.53 kg Heather Sneed MD Work Phone: [facility] 04-08-2023 09:22-0400 Diastolic blood pressure 82 mm[Hg] Heather Sneed MD Work Phone: [facility] 04-08-2023 09:22-0400 Heart rate 92 /min Heather Sneed MD Work Phone: [facility] 04-08-2023 09:22-0400 Systolic blood pressure 127 mm[Hg] Heather Sneed MD Work Phone: [facility] 03-13-2023 13:58-0400 Body height 162.[address] Ash Roberts Work Phone: [facility] 03-13-2023 13:58-0400 Body mass index (BMI) [Ratio] 28.1 kg/m2 Dr. Ash Roberts Work Phone: [facility] 03-13-2023 13:58-0400 Body weight 74.[address] Ash Roberts Work Phone: [facility] 03-13-2023 13:58-0400 Diastolic blood pressure 78 mm[Hg] Dr. Ash Roberts Work Phone: [facility] 03-13-2023 13:58-0400 Heart rate 74 /min Dr. Ash Roberts Work Phone: [facility] 03-13-2023 13:58-0400 SaO2% (BldA) [Mass fraction] 96 % Dr. Ash Roberts Work Phone: [facility] 03-13-2023 13:58-0400 Systolic blood pressure 117 mm[Hg] Dr. Ash Roberts Work Phone: [facility] 03-12-2023 06:39-0400 Body temperature 97.8 [degF] Dr. Ash Roberts Work Phone: [facility] 03-12-2023 06:39-0400 Diastolic blood pressure 86 mm[Hg] Dr. Ash Roberts Work Phone: [facility] 03-12-2023 06:39-0400 Heart rate 84 /min Dr. Ash Roberts Work Phone: [facility] 03-12-2023 06:39-0400 Respiratory rate 16 /min Dr. Ash Roberts Work Phone: [facility] 03-12-2023 06:39-0400 SaO2% (BldA) [Mass fraction] 99 % Dr. Ash Roberts Work Phone: [facility] 03-12-2023 06:39-0400 Systolic blood pressure 128 mm[Hg] Dr. Ash Roberts Work Phone: [facility] 12-24-2022 13:20-0400 Body temperature 97.59 [degF] Heather Sneed MD Work Phone: [facility] 12-24-2022 13:20-0400 Body weight 72.76 kg Heather Sneed MD Work Phone: [facility] 12-24-2022 13:20-0400 Diastolic blood pressure 74 mm[Hg] Heather Sneed MD Work Phone: [facility] 12-24-2022 13:20-0400 Heart rate 72 /min Heather Sneed MD Work Phone: [facility] 12-24-2022 13:20-0400 Systolic blood pressure 139 mm[Hg] Heather Sneed MD Work Phone: [facility] 09-10-2022 10:01-0500 Body height 162.[address] Genevieve Graham Work Phone: [facility] 09-10-2022 10:01-0500 Body mass index (BMI) [Ratio] 27.4 kg/m2 Dr. Genevieve Graham Work Phone: [facility] 09-10-2022 10:01-0500 Body weight 72.[address] Genevieve Graham Work Phone: [facility] 09-10-2022 10:01-0500 Diastolic blood pressure 80 mm[Hg] Dr. Genevieve Graham Work Phone: [facility] 09-10-2022 10:01-0500 Heart rate 60 /min Dr. Genevieve Graham Work Phone: [facility] 09-10-2022 10:01-0500 SaO2% (BldA) [Mass fraction] 98 % Dr. Genevieve Graham Work Phone: [facility] 09-10-2022 10:01-0500 Systolic blood pressure 125 mm[Hg] Dr. Genevieve Graham Work Phone: [facility] 04-19-2022 07:57-0400 Body weight 70.31 kg Parul Cummings BURIAL VAULT SETTER.HYDRODYNAMICIST Work Phone: [facility] 04-19-2022 07:57-0400 Diastolic blood pressure 80 mm[Hg] Parul Cummings BURIAL VAULT SETTER.HYDRODYNAMICIST Work Phone: [facility] 04-19-2022 07:57-0400 Heart rate 69 /min Parul Cummings BURIAL VAULT SETTER.HYDRODYNAMICIST Work Phone: [facility] 04-19-2022 07:57-0400 Respiratory rate 16 /min Parul Cummings BURIAL VAULT SETTER.HYDRODYNAMICIST Work Phone: [facility] 04-19-2022 07:57-0400 SaO2% (BldA) [Mass fraction] 98 % Parul Cummings BURIAL VAULT SETTER.HYDRODYNAMICIST Work Phone: [facility] 04-19-2022 07:57-0400 Systolic blood pressure 118 mm[Hg] Parul Cummings BURIAL VAULT SETTER.HYDRODYNAMICIST Work Phone: [facility] 02-06-2022 08:44-0400 Body height 162.[address] Genevieve Graham Work Phone: [facility] Work Phone: 02-06-2022 08:44-0400 Body mass index (BMI) [Ratio] 27.4 kg/m2 Dr. Genevieve Graham Work Phone: [facility] Work Phone: 02-06-2022 08:44-0400 Body weight 72.[address] Genevieve Graham Work Phone: [facility] Work Phone: 02-06-2022 08:44-0400 Diastolic blood pressure 80 mm[Hg] Dr. Genevieve Graham Work Phone: [facility] Work Phone: 02-06-2022 08:44-0400 Systolic blood pressure 130 mm[Hg] Dr. Genevieve Graham Work Phone: [facility] Work Phone: 01-30-2022 09:40-0400 Body weight 72.58 kg Parul Cummings BURIAL VAULT SETTER.HYDRODYNAMICIST Work Phone: [facility] 01-30-2022 09:40-0400 Diastolic blood pressure 78 mm[Hg] Parul Cummings BURIAL VAULT SETTER.HYDRODYNAMICIST Work Phone: [facility] 01-30-2022 09:40-0400 Heart rate 84 /min Parul Cummings BURIAL VAULT SETTER.HYDRODYNAMICIST Work Phone: [facility] 01-30-2022 09:40-0400 Respiratory rate 16 /min Parul Cummings BURIAL VAULT SETTER.HYDRODYNAMICIST Work Phone: [facility] 01-30-2022 09:40-0400 Systolic blood pressure 130 mm[Hg] Parul Cummings BURIAL VAULT SETTER.HYDRODYNAMICIST Work Phone: [facility] 10-22-2021 10:28-0500 Body height 164.[address] Genevieve Graham Work Phone: [facility] Work Phone: 10-22-2021 10:28-0500 Body mass index (BMI) [Ratio] 26.2 kg/m2 Dr. Genevieve Graham Work Phone: [facility] Work Phone: 10-22-2021 10:28-0500 Body temperature 98.7 [degF] Dr. Genevieve Graham Work Phone: [facility] Work Phone: 10-22-2021 10:28-0500 Body weight 70.[address] Genevieve Grhaam Work Phone: [facility] Work Phone: 10-22-2021 10:28-0500 Diastolic blood pressure 82 mm[Hg] Dr. Genevieve Graham Work Phone: [facility] Work Phone: 10-22-2021 10:28-0500 Heart rate 92 /min Dr. Genevieve Graham Work Phone: [facility] Work Phone: 10-22-2021 10:28-0500 Respiratory rate 18 /min Dr. Genevieve Graham Work Phone: [facility] Work Phone: 10-22-2021 10:28-0500 SaO2% (BldA) [Mass fraction] 95 % Dr. Genevieve Graham Work Phone: [facility] Work Phone: 10-22-2021 10:28-0500 Systolic blood pressure 126 mm[Hg] Dr. Genevieve Graham Work Phone: [facility] Work Phone: 07-03-2017 10:09-0400 BMI (Body Mass Index) 28.26 kg/m2 Rowan Macdoanld [facility] Work Phone: 07-03-2017 10:09-0400 Height 163.07 cm [facility] Work Phone: 07-03-2017 10:09-0400 Pulse (Heart Rate) 85 /min [facility] Work Phone: 07-03-2017 10:09-0400 Respiratory Rate 22 /min [facility] Work Phone: 07-03-2017 10:09-0400 Weight 75.16 kg [facility] Work Phone: NEGATED: Highlighted [id number] 08:25-0400 Body height 162.[address] [facility] Work Phone: NEGATED: Highlighted [id number] 08:25-0400 Body height [address] [facility] Work Phone: NEGATED: Highlighted [id number] 08:25-0400 Body mass index (BMI) [Ratio] 27.56 kg/m2 Mary Ann Kong CHECKER CASHIER [facility] Work Phone: NEGATED: Highlighted [id number] 08:25-0400 Body weight 72.[address] [facility] Work Phone: NEGATED: Highlighted [id number] 08:25-0400 Body weight [address] [facility] Work Phone: Encounters Encounter Date Encounter Type Care Provider Facility Start: 06-17-2025 ambulatory [facility] Facility: [facility] Start: 06-11-2025 ambulatory [facility] Facility: [facility] Start: 04-13-2025 End: 04-13-2025 [facility] Start: 04-13-2025 End: 04-13-[address] Sarah Huynh MD Work Phone: -[facility] Start: 04-05-2025 End: 04-05-[address] Sarah Huynh MD Work Phone: -Cardiovascular Services Start: 04-05-2025 End: 04-05-[address] Tony Bolden MD -Cardiovascular Services Work Phone: Start: 04-05-2025 End: 04-05-2025 ambulatory Tony Bolden Facility:[facility] Start: 02-26-2025 End: 02-26-[address] Sarah Huynh MD Work Phone: [facility] Work Phone: Start: 02-26-2025 End: 02-26-2025 Patient encounter procedure Juany Roberto BUDGET SPECIALIST-C -Outpatient Breast Imaging Work Phone: Start: 02-26-2025 End: 02-26-2025 ambulatory Juany Roberto NP Facility:[facility] Start: 12-19-2024 End: 12-19-2024 Subsequent hospital visit by physician [facility] Work Phone: Radiology Comment on above: Acute cough [R05.1] Start: 12-19-2024 End: 12-19-2024 Office outpatient visit 25 minutes Viviana Tobias APRN.AUDIO VISUAL EQUIPMENT RENTAL CLERK Work Phone: [facility] Comment on above: Acute cough (Primary Dx); Influenza A Start: 12-19-2024 End: 12-19-2024 ambulatory CASH ARIAS Facility:[facility] Start: 12-17-2024 End: 12-17-2024 Patient encounter procedure [facility] Work Phone: Start: 12-17-2024 End: 12-17-2024 ambulatory Ramone REYES Facility:[facility] Start: 12-10-2024 End: 12-10-[address] Sarah Huynh MD Work Phone: [facility] Work Phone: Start: 12-10-2024 End: 12-10-[address] Sarah Huynh MD -Laboratory, Nicolás Lu [facility] Start: 12-10-2024 End: 12-10-2024 ambulatory Sarah Huynh Facility:[facility] Start: 12-08-2024 End: 12-08-2024 Patient encounter procedure Jazzy REYES -[facility] Work Phone: Start: 12-08-2024 End: 12-08-2024 ambulatory Sarah Huynh Facility:[facility] Start: 12-04-2024 End: 12-04-[address] Sarah Huynh MD Work Phone: [facility] Work Phone: Start: 12-04-2024 End: 12-04-2024 Patient encounter procedure Jazzy REYES -Laboratory Work Phone: Start: 12-04-2024 End: 12-04-2024 ambulatory Jazzy REYES Facility:[facility] Start: 10-23-2024 End: 10-23-2024 Patient encounter procedure Estefany REYES -[facility] Work Phone: Start: 10-23-2024 End: 10-23-2024 ambulatory Estefany Huerta Facility:[facility] Start: 10-23-2024 End: 10-23-2024 ambulatory Estefany Huerta Facility:[facility] Start: 09-09-2024 End: 09-09-2024 Patient encounter procedure Gus REYES -[facility] Work Phone: Start: 09-09-2024 End: 09-09-2024 ambulatory Gus REYES Facility:[facility] Start: 04-01-2024 End: 04-01-2024 ambulatory CASH LAMA Facility:[facility] Start: 04-01-2024 End: 04-01-2024 Office outpatient visit 25 minutes Cash Lama MD Work Phone: Neurology Comment on above: Essential tremor; RLS (restless legs syndrome) Start: 01-01-2024 Refill Cash daniel MD Work Phone: Neurology Comment on above: Refill Request Start: 12-17-2023 End: 12-17-[address] Sarah Huynh Work Phone: [facility] Work Phone: Start: 12-17-2023 End: 12-17-[address] Sarah Huynh Work Phone: [facility]-Cat [facility] Work Phone: Start: 12-08-2023 End: 12-08-[address] Sarah Huynh Work Phone: [facility] Work Phone: Start: 10-24-2023 End: 10-24-[address] Sarah Huynh Work Phone: [facility] Work Phone: Start: 10-24-2023 End: 10-24-[address] Sarah Huynh Work Phone: [facility]-Laboratory Work Phone: Start: 10-24-2023 End: 10-24-[address] Sarah Huynh Work Phone: [facility] Work Phone: Start: 10-19-2023 End: 10-19-[address] Sarah Huynh Work Phone: [facility] Work Phone: Start: 10-08-2023 End: 10-08-2023 ambulatory DO Cash Arias Work Phone: [facility] Work Phone: Start: 10-08-2023 End: 10-08-2023 Patient encounter procedure DO Cash Arias [facility] Work [facility] Start: 09-13-2023 End: 09-13-2023 Patient encounter procedure DO Cash Arias Work Phone: [facility] Work Phone: Start: 09-04-2023 End: 09-04-2023 ambulatory DO Cash Arias Work Phone: [facility] Work Phone: Start: 09-04-2023 End: 09-04-2023 Patient encounter procedure DO Cash Arias [facility] Start: 08-07-2023 End: 08-07-2023 Patient encounter procedure DO Cash Arias [facility] Start: 06-28-2023 End: 06-28-2023 Patient encounter procedure DO Cash Arias Work Phone: [facility] Work Phone: Start: 04-18-2023 Non-patient / Non-visit Dr. Ray Roberts Work Phone: [facility] Work Phone: Start: 04-18-2023 Non-patient / Non-visit Dr. Ray Roberts Work Phone: [facility] Start: 04-18-2023 End: 04-18-[address] Ash Roberts [facility] Work Phone: Start: 04-10-2023 End: 04-10-[address] Ash Roberts Work Phone: [facility] Work Phone: Start: 04-09-2023 End: 04-09-[address] Ash Roberts Work Phone: [facility] Work Phone: Start: 04-09-2023 End: 04-09-[address] Ash Roberts Work Phone: [facility]-Physical Therapy Work Phone: Start: 04-08-2023 Telephone encounter Heather Sneed MD Work Phone: Neurology Comment on above: [facility]ceived [facility] Start: 04-08-2023 End: 04-08-2023 ambulatory [facility] Facility:[facility] Start: 04-08-2023 End: 04-08-2023 Patient encounter procedure Heather Sneed MD Work Phone: Neurology Comment on above: Polyneuropathy (Prim lalit Dx); Numbness and tingling of both lower extremities; Tremor, essential; Essential hypertension, ; Hyperlipidemia LDL goal <100; Hypothyroidism, unspecified type; DDD (degenerative disc disease), lumbar; Restless legs syndrome Start: 03-14-[address] Ash Roberts Work Phone: [facility]-Physical Therapy Start: 03-13-2023 End: 03-13-[address] Ash Roberts Work Phone: [facility] Start: 03-12-2023 End: 03-12-[address] Ash Roberts Work Phone: [facility] Work Phone: Start: 03-12-2023 End: 03-12-[address] Ash Roberts Work Phone: [facility]-Laboratory, Specimen Start: 03-12-2023 End: 03-12-[address] Ash Roberts Work Phone: [facility] Start: 03-05-2023 End: 03-05-[address] Ash Roberts Work Phone: [facility]-Ultrasound, [facility] Start: 02-21-2023 End: 02-21-[address] Ash Roberts Work Phone: [facility]-Outpatient Breast Imaging Start: 01-10-2023 Non-patient / Non-visit Dr. Ray Roberts Work Phone: [facility] Start: 01-10-[address] [facility]: [facility] Start: 01-01-2023 [facility] Comment on above: Population Health Na vigation Outreach ([facility]) Start: 12-24-2022 End: 12-25-2022 ambulatory GENEVIEVE GRAHAM Facility:[facility] Start: 12-24-2022 End: 12-24-2022 ambulatory HEATHER SNEED Facility:[facility] Start: 12-24-2022 End: 12-24-2022 Patient encounter procedure Heather Sneed MD Work Phone: Neurology Comment on above: Polyneuropathy (Prim lalit Dx); Other dietary vitamin B12 deficiency anemia ; Encounter for screening for human immunodeficiency virus (HIV) ; Restless legs syndrome; Tremor, essential; Lumbar radiculopathy; Essential hypertension, ; Hyperlipidemia LDL goal <100; DDD (degenerative disc disease), lumbar Start: 11-06-2022 ambulatory [facility] Comment on above: Population Health Na vigation Outreach ([facility]) Start: 10-04-2022 End: 10-04-[address] Genevieve Graham Work Phone: [facility] Work Phone: Start: 10-04-2022 End: 10-04-[address] Genevieve Graham Work Phone: [facility]-Laboratory Start: 09-27-2022 End: 09-27-[address] Genevieve Graham Work Phone: [facility] Work Phone: Start: 09-27-2022 End: 09-27-[address] Genevieve Graham Work Phone: [facility] Start: 09-10-2022 End: 09-10-[address] Genevieve Graham Work Phone: [facility] Work Phone: Start: 09-10-2022 End: 09-10-[address] Genevieve Graham Work Phone: [facility] Start: 08-07-2022 End: 08-07-[address] Genevieve Graham Work Phone: [facility] Work Phone: Start: 08-07-2022 End: 08-07-[address] Genevieve Graham Work Phone: [facility] Start: 08-01-2022 End: 08-01-[address] Genevieve Graham Work Phone: [facility] Work Phone: Start: 08-01-2022 End: 08-01-[address] Genevieve Graham Work Phone: [facility] Start: 07-25-2022 End: 07-25-[address] Genevieve Graham Work Phone: [facility] Work Phone: Start: 07-25-2022 End: 07-25-[address] Geneiveve Graham Work Phone: [facility]-Nuclear Medicine, [facility] Start: 07-18-2022 End: 07-18-[address] Genevieve Graham Work Phone: [facility] Work Phone: Start: 07-18-2022 End: 07-18-[address] Genevieve Graham [facility] Start: 07-17-2022 Refill Parul Cummings APRN.HYDRODYNAMICIST Work Phone: [facility] Comment on above: Refill Request Start: 07-02-2022 End: 07-02-[address] Genevieve Graham Work Phone: [facility] Work Phone: Start: 07-02-2022 End: 07-02-[address] Genevieve Graham Work Phone: [facility] Start: 05-22-2022 End: 05-22-[address] Genevieve Graham Work Phone: [facility] Work Phone: Start: 05-22-2022 End: 05-22-[address] Genevieve Graham [facility] Start: 04-19-2022 Telephone encounter Genevieve jonas MD Work Phone: [facility] Comment on above: Fax Referral Start: 04-19-2022 End: 04-19-2022 Patient encounter procedure Parul Cummings APRN.HYDRODYNAMICIST Work Phone: [facility] Comment on above: Epigastric pain (Dipika william Dx); Nausea; Chronic nausea; Chronic constipation; Gastroesophageal reflux disease without esophagitis Start: 04-13-2022 End: 04-13-[address] Genevieve Graham Work Phone: [facility]-Physical Therapy Start: 02-16-2022 Refill [facility] Provider [facility] Comment on above: Refill Request Start: 02-09-2022 ambulatory Esperanza Leivne RN NURSE COOPER HELPER Comment on above: Rectal Problem Start: 02-06-2022 End: 02-06-[address] Genevieve Graham Work Phone: [facility] Start: 02-05-2022 Telephone encounter Parul Josekimberlee costa BURIAL VAULT SETTER.HYDRODYNAMICIST Work Phone: [facility] Comment on above: Results, Lab Start: 01-30-2022 End: 01-30-2022 Patient encounter procedure Parul Cummings APRN.HYDRODYNAMICIST Work Phone: [facility] Comment on above: Hypothyroidism, unsp ecified type (Primary Dx); Vitamin D deficiency; Gastroesophageal reflux disease without esophagitis; Numbness and tingling of both lower extremities; Extremity numbness; Hyperlipidemia LDL goal <100; Acute pain of left knee Start: 01-18-2022 ambulatory No Pcp [facility] Start: 01-10-2022 End: 01-10-2022 Subsequent hospital visit by physician [facility] Work Phone: Radiology Comment on above: Acute pain of left k nee [M25.562] Start: 01-10-2022 Telephone encounter Deep Blanco DO Work Phone: Radiology Comment on above: Release Of Medical R ecords Start: 01-09-2022 End: 01-09-[address] Genevieve Graham Work Phone: [facility] Start: 12-27-2021 Telephone encounter Genevieve jonas MD Work Phone: [facility] Comment on above: Results, Lab Start: 10-22-2021 End: 10-22-[address] Genevieve Graham Work Phone: [facility] Start: 10-03-2021 End: 10-03-[address] Genevieve Graham Work Phone: [facility] Start: 04-04-2021 End: 04-04-2021 Subsequent hospital visit by physician X[facility] Work Phone: Radiology Comment on above: Acute constipation [ K59.00] Start: 02-04-2018 Ambulatory ERICKA A CARLOS Facilit y:[facility] Start: 12-24-2017 Ambulatory ERICKA A RUMTRACEE Facilit y:[facility] Start: 11-11-2017 Telephone encounter Nahed Lau bul Work Phone: [facility] Work Phone: Start: 11-11-2017 End: 11-15-2017 Evaluation and management of inpatient Loree Morgan Facility:[facility] Start: 11-01-2017 Ambulatory Loree Morgan Faci lity:[facility] Start: 10-22-2017 Office consultation new/estab patient 30 min Nahed Bradshaw Cebul Work Phone: [id number] Work Phone: Procedures Date Procedure Procedure Detail Performing Clinician Start: 02-26-2025 Screening mammography Mounika Huynh MD Work Phone: Start: 12-19-2024 INFLUENZA A&B MOLECU LAR (POC) [facility] Provider Start: 12-10-[address] Steffany Huynh MD Work Phone: Start: 03-12-[address] Ash Roberts Work Phone: Start: 03-05-20[address] Ul[address]ound elastogra phy of liver Dr. Ash Roberts Work Phone: Start: 02-21-2023 Screening mammography Mounika Roberts Work Phone: Start: 09-27-[address] Genevieve Graham Work Phone: Start: 09-27-[address] Genevieve Graham Work Phone: Start: 07-25-2022 Radionuclide gastric emptying study Dr. Genevieve Graham Work Phone: Start: 02-06-2022 End: 02-06-2022 Mammography Esperanza Levine RN Start: 02-03-2022 Lipid 1996 panel - Serum or Plasma Heather Sneed MD Work Phone: Start: 01-11-2022 End: 01-11-2022 BP scrn no perf at interval Chance W [employer] Work Phone: Start: 01-11-2022 End: 01-11-2022 Calc BMI out nrm niesha nof/u Chance W [email or web address] Work Phone: Start: 01-11-2022 End: 01-11-2022 Current tobacco non-user cad cap copd pv dm Chance W [email or web address] Work Phone: Start: 01-11-2022 End: 01-11-2022 Docrev cur meds by ramandeep carmona [facility] [employer] Work Phone: Start: 01-11-2022 End: 01-11-2022 Pain doc pos and plan Chance W [employer] Work Phone: Start: 01-11-2022 End: 01-11-2022 Patient encounter procedure Chance W [facility] Work Phone: Start: 01-10-2022 Radiologic exam knee complete 4/more views Rosy Donis APRN.AUDIO VISUAL EQUIPMENT RENTAL CLERK Work Phone: Start: 01-09-2022 MRI of brain with contrast Dr. Genevieve Graham Work Phone: Start: 10-17-2021 Adult depression screening assessment Genevieve Graham MD Work Phone: Start: 04-04-2021 Radiologic exam abdo men 1 view Lonnie Ramírez MD Work Phone: Start: 05-30-2020 Colonoscopy Genevieve simms MD Work Phone: Start: 02-02-2020 Mammography Genevieve simms MD Work Phone: Start: 11-11-2017 Resection of Sigmoid Colon, Open Approach Loree Morgan Start: 07-03-2017 End: 07-04-2017 Chiropractic manipulative tx spinal 1-2 regions Ashlyn Herrera DC Work Phone: Start: 07-03-2017 End: 07-03-2017 Dietary management education, guidance, and counseling Rowan Macdonald Appendectomy Nahed A Cebul Work Phone: Bladder Surgery Nahed A Cebu l Work Phone: Cholecystectomy Nahed A Cebu l Work Phone: H/O: hysterectomy History of hysterectomy Dr. Genevieve Graham Work Phone: Hand Surgery Nahed A Cebul Work Phone: History of cholecystectomy History of cholecystectomy Dr. Genevieve Graham Work Phone: Hysterectomy Nahed A Cebul Work Phone: Urine culture Dr. Ash Roberts Work Phone: NEGATED: Highlighted rowStart: 01-11-2022 End: 01-11-2022 Documentation of current medications Mary Ann Kong LPN Plan of Treatment Date Care Activity Detail Author Start: 02-03-2027 Lipid 1996 panel - Serum or Plasma Lipid Screening [facility] Start: 02-03-2027 Lipid panel Lipid Screening [facility] Start: 02-03-2027 LIPID SCREEN LIPID SCREEN [facility] Start: 2026 RSV Vaccine (1 - 1-dose 75+ series) RSV Vaccine (1 - 1-dose 75+ series) [facility] Start: 10-28-2025 LIPID SCREEN LIPID SCREEN [facility] Start: 05-30-2025 Colonoscopy COLONOSCOPY [facility] Start: 05-30-2025 COLORECTAL CANCER SCREENING COLORECTAL CANCER SCREENING [facility] Start: 05-30-2025 Screening for malignant neoplasm of colon [facility] Start: 12-22-2024 DIABETES SCREEN DIABETES SCREEN [facility] Start: 12-22-2024 Diabetes Screening Diabetes Screening [facility] Start: 09-30-2024 Advance Directive Discussion Advance Directive Discussion [facility] Start: 07-01-2024 BP Controlled (<130/80) BP Controlled (<130/80) [facility] in Start: 05-31-2024 Covid-19 Vaccine () Covid-19 Vaccine () [facility] Start: 05-31-2024 Influ[facility] Start: 09-30-2023 Advance Directive Discussion Advance Directive Discussion [facility] Start: 09-30-2023 Behavioral Health Screening Behavioral Health Screening [facility] Start: 05-31-2023 Covid-19 Vaccine ( season) Covid-19 Vaccine () [facility] Start: 05-31-2023 Influenza vaccination [facility] Start: 04-19-2023 BP CONTROLLED (<130/80) BP CONTROLLED (<130/80) [facility] Start: 02-06-2023 Mammography [facility] Start: 02-06-2023 Screening for malignant neoplasm of breast Mammogram Screening [facility] Start: 01-10-2023 BP CONTROLLED (<130/80) BP CONTROLLED (<130/80) [facility] Start: 12-24-2022 End: 02-23-2023 Alpha tocopherol [Mass/volume] in Serum or Plasma [facility] Work Phone: Comment on above: Expected: 12/24/2022, Expires: 3 Start: 12-24-2022 End: 02-23-2023 COPPER BLOOD [facility] Work Phone: Comment on above: Expected: 12/24/2022, Expires: 3 Start: 12-24-2022 End: 02-23-2023 Extractable nuclear Ab panel - Serum [facility] Work Phone: Comment on above: Expected: 12/24/2022, Expires: 3 Start: 12-24-2022 End: 02-23-2023 HIV 1+2 Ab [Presence] in Serum or Plasma by Immunoassay [facility] Work Phone: Comment on above: Expected: 12/24/2022, Expires: 3 Start: 12-24-2022 End: 02-23-2023 Methylmalonate [Moles/volume] in Serum or Plasma [facility] Work Phone: Comment on above: Expected: 12/24/2022, Expires: 3 Start: 12-24-2022 End: 02-23-2023 Nuclear Ab [Presence] in Serum by Immunoassay [facility] Work Phone: Comment on above: Expected: 12/24/2022, Expires: 3 Start: 12-24-2022 End: 02-23-2023 PROTEIN ELECT RND UR W/INTERP [facility] Work Phone: Comment on above: Expected: 12/24/2022, Expires: 3 Start: 12-24-2022 End: 02-23-2023 PROTEIN ELECTROPHORESIS SERUM W/INTERP [facility] Work Phone: Comment on above: Expected: 12/24/2022, Expires: 3 Start: 12-24-2022 End: 02-23-2023 SYPHILIS TOTAL W/REFLEX [facility] Work Phone: Comment on above: Expected: 12/24/2022, Expires: 3 Start: 10-17-2022 Adult depression screening assessment DEPRESSION SCREENING [facility] Start: 10-17-2022 ANNUAL PCP TEAM CHRONIC DISEASE VISIT ANNUAL PCP TEAM CHRONIC DISEASE VISIT [facility] Start: 10-17-2022 BP CONTROLLED (<130/80) BP CONTROLLED (<130/80) [facility] Start: 10-17-2022 Urine microalbumin profile DTAP,TDAP,TD (1 - Tdap) [facility] Comment on above: Postponed from 06/26/2006 (Insurance Cov erage) Start: 10-01-2022 SHINGRIX VACCINE (2 of 3) SHINGRIX VACCINE (2 of 3) [facility] Comment on above: Postponed from 08/21/2013 (Insurance Cov erage) Start: 09-30-2022 ADVANCE DIRECTIVE DISCUSSION ADVANCE DIRECTIVE DISCUSSION [facility] Start: 09-30-2022 DEPRESSION ASSESSMENT DEPRESSION ASSESSMENT [facility] Start: 08-14-2022 ANNUAL PCP TEAM CHRONIC DISEASE VISIT ANNUAL PCP TEAM CHRONIC DISEASE VISIT [facility] Start: 08-08-2022 End: 10-08-2022 LIPID PANEL BASIC LIPID PANEL BASIC Lab Routine Hyperlipidemia LDL goal <100 Expected: 08/08/2022 (Approximate), Expires: 10/08/2022 [facility] Work Phone: Comment on above: Expected: 08/08/2022 (Approximate), Expi res: 10/08/2022 Start: 08-02-2022 End: 10-02-2022 CBC W Auto Differential panel - Blood CBC + DIFF Lab Routine Gastroesophageal reflux disease without esophagitis Expected: 08/02/2022 (Approximate), Expires: 10/02/2022 [facility] Work Phone: Comment on above: Expected: 08/02/2022 (Approximate), Expi res: 10/02/2022 Start: 08-02-2022 End: 10-02-2022 Comprehensive metabolic 2000 panel - Serum or Plasma COMP METABOLIC PANEL Lab Routine Hypothyroidism, unspecified type Gastroesophageal reflux disease without esophagitis Expected: 08/02/2022 (Approximate), Expires: 10/02/2022 [facility] Work Phone: Comment on above: Expected: 08/02/2022 (Approximate), Expi res: 10/02/2022 Start: 08-02-2022 End: 10-02-2022 Thyrotropin [Units/volume] in Serum or Plasma TSH BLD Lab Routine Hypothyroidism, unspecified type Expected: 08/02/2022 (Approximate), Expires: 10/02/2022 [facility] Work Phone: Comment on above: Expected: 08/02/2022 (Approximate), Expi res: 10/02/2022 Start: 07-02-2022 Gastrin [Mass/volume] in Serum or Plasma [facility] Work Phone: Start: 07-02-2022 Immunoglobulin measurement [facility] Work Phone: Start: 07-02-2022 Serum immunofixation [facility] Work Phone: Start: 07-02-2022 [facility] Work Phone: Start: 05-31-2022 Influenza vaccination INFLUENZA (#1) [facility] Start: 01-30-2022 End: 04-01-2022 LIPID PANEL, NONFASTING LIPID PANEL, NONFASTING Lab Routine Hyperlipidemia LDL goal <100 Expected: 01/30/2022, Expires: 04/01/2022 [facility] Work Phone: Comment on above: Expected: 01/30/2022, Expires: 2 Start: 01-30-2022 End: 04-01-2022 VITAMIN D 25 HYDROXY VITAMIN D 25 HYDROXY Lab Routine Vitamin D deficiency Expected: 01/30/2022, Expires: 04/01/2022 [facility] Work Phone: Comment on above: Expected: 01/30/2022, Expires: 2 Start: 01-24-2022 End: 01-24-2022 Patient encounter procedure Appointment [facility] Work Phone: Start: 01-11-2022 End: 01-11-2022 Patient encounter procedure Appointment [facility] Work Phone: Start: 01-11-2022 End: 01-11-2022 Mri any jt lower extrem w/o contrast matrl MRI left knee without contrast [facility] Work Phone: Start: 09-30-2021 ADVANCE DIRECTIVE DISCUSSION ADVANCE DIRECTIVE DISCUSSION [facility] Start: 09-30-2021 DEPRESSION ASSESSMENT DEPRESSION ASSESSMENT [facility] Start: 05-24-2021 COVID-19 VACCINE (3 - Booster for Moderna series) COVID-19 VACCINE (3 - Booster for Moderna series) [facility] Start: 02-16-2021 COVID-19 VACCINE (3 - Booster for Moderna series) COVID-19 VACCINE (3 - Booster for Moderna series) [facility] Start: 02-16-2021 COVID-19 VACCINE (3 - Moderna series) COVID-19 VACCINE (3 - Moderna series) [facility] Start: 02-01-2021 Mammography MAMMOGRAM [facility] Start: 07-11-2017 End: 07-11-2017 Appointment Appointment [facility] Work Phone: Start: 07-08-2017 End: 07-08-2017 Appointment Appointment [facility] Work Phone: Start: 07-03-2017 End: 07-04-2017 Follow up Appt 2x/week Follow up Appt 2x/week [facility] Work Phone: Start: 08-21-2013 SHINGRIX VACCINE (2 of 3) SHINGRIX VACCINE (2 of 3) [facility] Start: 03-24-2013 Screening for malignant neoplasm of colon Sigmoidoscopy [facility] Start: 03-24-2013 SIGMOIDOSCOPY SIGMOIDOSCOPY [facility] Start: 2011 RSV Vaccine (1 - 1-dose 60+ series) RSV Vaccine (1 - 1-dose 60+ series) [facility] Start: 11-07-2007 FECAL OCCULT BLOOD FECAL OCCULT BLOOD [facility] Start: 11-07-2007 Screening for malignant neoplasm of colon Fecal Occult Blood [facility] Start: 06-26-2006 Urine microalbumin profile [facility] Start: 1996 COLOGUARD (FIT-DNA) COLOGUARD (FIT-DNA) [facility] Start: [address] COLONOGRAPHY [facility] Start: 1996 Screening for malignant neoplasm of colon [facility] Start: 1969 Anxiety Screening Anxiety Screening [facility] Start: 1969 BP CONTROLLED (<130/80) BP CONTROLLED (<130/80) [facility] Start: 1969 Depression Screening Depression Screening [facility] Albumin [Moles/volum e] in Serum or Plasma [facility] Work Phone: Albumin/Globulin ratio [facility] Work Phone: Electrophoresis: [id number] [facility] Work Phone: Electrophoresis: shun ma globulin [facility] Work Phone: Gastrin [Mass/volume ] in Serum or Plasma [facility] Work Phone: Globulin measurement [facility] Work Phone: IgA [Mass/volume] in Serum or Plasma [facility] Work Phone: IgE [Units/volume] i n Serum or Plasma [facility] Work Phone: IgG [Mass/volume] in Serum or Plasma [facility] Work Phone: IgM [Mass/volume] in Serum or Plasma [facility] Work Phone: Liver stiffness by US.transient elastography [facility] VACCINE, BOOSTER DOSE Immunization/Injection Routine 1 Occurrences starting 01/30/2022 [facility] Work Phone: Comment on above: 1 Occurrences starting 01/30/2022 Neutrophil cytoplasm ic Ab.classic [Units/volume] in Serum [facility] Work Phone: P-ANCA measurement [facility] Work Phone: Patient referral [facility] Work Phone: Protein electrophore sis panel - Serum or Plasma [facility] Work Phone: Radionuclide gastric emptying study [facility] Work Phone: Serum protein electrophoresis [facility] Work Phone: Ultrasound elastography [facility] Work Phone: Urinalysis macro (dipstick) panel - Urine [facility] US Abdomen limited [facility] Work Phone: End: 01-18-2026 XR Chest PA and Lateral XR CHEST 2V FRONTAL/LAT Radiology Routine Acute cough 1 Occurrences starting 12/19/2024 until 01/18/2026 [facility] Work Phone: Comment on above: 1 Occurrences starting 12/19/2024 until 01/18/2026 XR Chest PA and Lateral XR CHEST 2V FRONTAL/LAT Radiology Routine Acute cough 12/19/2024 11:04 AM EDT [facility] Immunizations Immunization Date Immunization Notes Care Provider [facility] 07-19-2023 influenza virus vacc ine, unspecified formulation Cash Lama MD Work Phone: [facility] 06-29-2022 influenza virus vacc ine, unspecified formulation Shumei Man MD Work Phone: [facility] 07-22-2021 influenza, high-dose , quadrivalent vaccine (FLUZONE HIGH DOSE QUADRIVALENT) Genevieve Graham MD Work Phone: [facility] 12-22-2020 COVID-19 vaccine, fu ll dose (MODERNA) Genevieve Graham MD Work Phone: [facility] 11-24-2020 COVID-19 vaccine, fu ll dose (MODERNA) Genevieve Graham MD Work Phone: [facility] 07-02-2020 influenza, high-dose , quadrivalent vaccine (FLUZONE HIGH DOSE QUADRIVALENT) Genevieve Graham MD Work Phone: [facility] 07-20-2019 influenza, high dose seasonal, preservative-free Genevieve Graham MD Work Phone: [facility] 07-11-2018 influenza, high dose seasonal, preservative-free Genevieve Graham MD Work Phone: [facility] Work Phone: 07-11-2017 pneumococcal polysaccharide vaccine, 23 valent Genevieve Graham MD Work Phone: [facility] Work Phone: 08-16-2016 influenza, high dose seasonal, preservative-free Genevieve Graham MD Work Phone: [facility] 06-28-2016 pneumococcal conjuga te vaccine, 13 valent Genevieve Graham MD Work Phone: [facility] Work Phone: 06-26-2013 zoster vaccine, live Genevieve peterson MD Work Phone: [facility] 06-25-2006 tetanus and diphther ia toxoids, adsorbed, preservative free, for adult use (2 Lf of tetanus toxoid and 2 Lf of diphtheria toxoid) Genevieve Graham MD Work Phone: [facility] Payers Date Payer Category Payer Self-pay [id number] 2019 Private Health Insurance MMO MED ICARE SUPPLEMENT [id number] 2019 Unknown MMO MMO MEDICARE SUPPLEMENT [id number] 2019-Present [phone] [address] [place] [address] Indemnity [id number] 2019 Unknown MMO MMO MEDICARE SUPPLEMENT [id number] 2019-Present [phone] [address] [place] [address] Indemnity [id number] 2019 Unknown [id number] 2017 Medicare MEDICARE MEDICAR E A AND B [id number] 2017-Present [phone] [address] [address] [place] [address] Medicare [id number] 2017 Medicare [id number] 2016 Medicare [id number] Medicare [id number] Private Health Insurance [id number] Unknown [id number] Unknown [id number] 462 Unknown [id number] 462 Unknown [id number] 462 Unknown [id number] 462 Unknown [id number] 462 Unknown [id number] 462 Unknown [id number] 462 Unknown [id number] 462 Unknown [id number] 462 Unknown [id number] 462 Unknown [id number] 462 Unknown [id number] 462 Social History Date Type Detail Facility Start: 04-08-2023 End: 04-01-2024 Never smoker Never smoker [facility] Start: 11-07-2011 End: 06-11-2024 Tobacco smoking status NHIS Never smoked tobacco [facility] Start: 10-17-2021 End: 12-19-2024 Alcohol intake Current drinker of alcohol (finding) [facility] Start: 1950 Sex Assigned At Not on file [facility] Start: 03-05-2021 End: 04-19-2022 Exposure to SARS-CoV-2 (event) Not sure [facility] Start: 10-23-2021 End: 12-08-2023 Assertion Unknown if ever smoked [facility] Work Phone: Start: 12-10-2018 None [facility] Start: 05-09-2019 Spouse/ Signif icant Other [facility] Start: 01-16-2019 Non-smoker [facility] Start: 1950 Sex Assigned At Female W [facility] Start: 11-07-2011 End: 12-24-2022 Tobacco use and exposure Smokeless tobacco non-user [facility] Start: 04-08-2023 End: 04-01-2024 Tobacco use panel [facility] Adult Depression Screening Assessment 0 [facility] Start: 12-15-2024 End: 12-22-2024 Sex Female (finding) [facility] Medical Equipment Procedure Code Equipment Code Equipment Origin al Text Equipment Identifier Dates Repair, hernia, ventral or umbilical, laparoscopic MESH,VENTLEX ST MED 6.4CM FDA Start: 01-14-2019 Repair, hernia, ventral or umbilical, laparoscopic MESH,VENTRIO ST OVAL 11X14 FDA Start: 01-14-2019 Repair, hernia, ventral or umbilical, laparoscopic STAPLER,PROTACK 5MM HERNIA FDA Start: 01-14-2019 Repair, hernia, ventral or umbilical, 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,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 FDA Start: 01-14-2019 Repair, hernia, ventral or umbilical, laparoscopic MESH,VENTLEX ST MED 6.4CM FDA Start: 01-14-2019 Repair, hernia, ventral or umbilical, laparoscopic MESH,VENTRIO ST FARIBA BONE 11X14 FDA Start: 01-14-2019 Repair, hernia, ventral or umbilical, laparoscopic STAPLER,PROTACK 5MM HERNIA FDA Start: 01-14-2019 Repair, hernia, ventral or umbilical, 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,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 FDA Start: 01-14-2019 Repair, hernia, ventral or umbilical, laparoscopic MESH,VENTLEX ST MED 6.4CM FDA Start: 01-14-2019 Repair, hernia, ventral or umbilical, laparoscopic MESH,VENTRIO ST OVAL 11X14 FDA Start: 01-14-2019 Repair, hernia, ventral or umbilical, laparoscopic STAPLER,PROTACK 5MM HERNIA FDA Start: 01-14-2019 Repair, hernia, ventral or umbilical, 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,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 FDA Start: 01-14-2019 Repair, hernia, ventral or umbilical, laparoscopic MESH,VENTLEX ST MED 6.4CM FDA Start: 01-14-2019 Repair, hernia, ventral or umbilical, laparoscopic MESH,EDIEIO ST FARIBA BONE 11X14 FDA Start: 01-14-2019 Repair, hernia, ventral or umbilical, laparoscopic STAPLER,PROTACK 5MM HERNIA FDA Start: 01-14-2019 Repair, hernia, ventral or umbilical, 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,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 FDA Start: 01-14-2019 Repair, hernia, ventral or umbilical, laparoscopic MESH,VENTLEX ST MED 6.4CM FDA Start: 01-14-2019 Repair, hernia, ventral or umbilical, laparoscopic MESH,RYLEY RUTH MD 11X14 FDA Start: 01-14-2019 Repair, hernia, ventral or umbilical, laparoscopic STAPLER,PROTACK 5MM HERNIA FDA Start: 01-14-2019 Repair, hernia, ventral or umbilical, 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,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 FDA Start: 01-14-2019 Repair, hernia, ventral or umbilical, laparoscopic MESH,VENTLEX ST MED 6.4CM FDA Start: 01-14-2019 Repair, hernia, ventral or umbilical, laparoscopic MESH,RYLEY ST FARIBA BONE 11X14 FDA Start: 01-14-2019 Repair, hernia, ventral or umbilical, laparoscopic STAPLER,PROTACK 5MM HERNIA FDA Start: 01-14-2019 Repair, hernia, ventral or umbilical, 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,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 FDA Start: 01-14-2019 Repair, hernia, ventral or umbilical, laparoscopic MESH,VENTLEX ST MED 6.4CM FDA Start: 01-14-2019 Repair, hernia, ventral or umbilical, laparoscopic MESH,EDIEIO ST FARIBA BONE 11X14 FDA Start: 01-14-2019 Repair, hernia, ventral or umbilical, laparoscopic STAPLER,PROTACK 5MM HERNIA FDA Start: 01-14-2019 Repair, hernia, ventral or umbilical, 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,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 FDA Start: 01-14-2019 Repair, hernia, ventral or umbilical, laparoscopic MESH,VENTLEX ST MED 6.4CM FDA Start: 01-14-2019 Repair, hernia, ventral or umbilical, laparoscopic MESH,EDIEIO ST FARIBA BONE 11X14 FDA Start: 01-14-2019 Repair, hernia, ventral or umbilical, laparoscopic STAPLER,PROTACK 5MM HERNIA FDA Start: 01-14-2019 Repair, hernia, ventral or umbilical, 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,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 FDA Start: 01-14-2019 Repair, hernia, ventral or umbilical, laparoscopic MESH,VENTLEX ST MED 6.4CM FDA Start: 01-14-2019 Repair, hernia, ventral or umbilical, laparoscopic MESH,VENTRIO ST FARIBA BONE 11X14 FDA Start: 01-14-2019 Repair, hernia, ventral or umbilical, laparoscopic STAPLER,PROTACK 5MM HERNIA FDA Start: 01-14-2019 Repair, hernia, ventral or umbilical, 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,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 FDA Start: 01-14-2019 Repair, hernia, ventral or umbilical, laparoscopic MESH,VENTLEX ST MED 6.4CM FDA Start: 01-14-2019 Repair, hernia, ventral or umbilical, laparoscopic MESH,EDIEIO ST FARIBA BONE 11X14 FDA Start: 01-14-2019 Repair, hernia, ventral or umbilical, laparoscopic STAPLER,PROTACK 5MM HERNIA FDA Start: 01-14-2019 Repair, hernia, ventral or umbilical, 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,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 FDA Start: 01-14-2019 Repair, hernia, ventral or umbilical, laparoscopic MESH,VENTLEX ST MED 6.4CM FDA Start: 01-14-2019 Repair, hernia, ventral or umbilical, [facility] 11X14 FDA Start: 01-14-2019 Repair, hernia, ventral or umbilical, laparoscopic STAPLER,PROTACK 5MM HERNIA FDA Start: 01-14-2019 Repair, hernia, ventral or umbilical, 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,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 FDA Start: 01-14-2019 Repair, hernia, ventral or umbilical, laparoscopic MESH,VENTLEX ST MED 6.4CM FDA Start: 01-14-2019 Repair, hernia, ventral or umbilical, laparoscopic MESH,EDIEIO ST FARIBA BONE 11X14 FDA Start: 01-14-2019 Repair, hernia, ventral or umbilical, laparoscopic STAPLER,PROTACK 5MM HERNIA FDA Start: 01-14-2019 Repair, hernia, ventral or umbilical, 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,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 FDA Start: 01-14-2019 Repair, hernia, ventral or umbilical, laparoscopic MESH,VENTLEX ST MED 6.4CM FDA Start: 01-14-2019 Repair, hernia, ventral or umbilical, laparoscopic MESH,VENTRIO ST FARIBA BONE 11X14 FDA Start: 01-14-2019 Repair, hernia, ventral or umbilical, laparoscopic STAPLER,PROTACK 5MM HERNIA FDA Start: 01-14-2019 Repair, hernia, ventral or umbilical, 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,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 FDA Start: 01-14-2019 Repair, hernia, ventral or umbilical, laparoscopic MESH,VENTLEX ST MED 6.4CM FDA Start: 01-14-2019 Repair, hernia, ventral or umbilical, laparoscopic MESH,VENTRIO ST FARIBA BONE 11X14 FDA Start: 01-14-2019 Repair, hernia, ventral or umbilical, laparoscopic STAPLER,PROTACK 5MM HERNIA FDA Start: 01-14-2019 Repair, hernia, ventral or umbilical, 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,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 FDA Start: 01-14-2019 Repair, hernia, ventral or umbilical, laparoscopic MESH,VENTLEX ST MED 6.4CM FDA Start: 01-14-2019 Repair, hernia, ventral or umbilical, laparoscopic MESH,EDIEIO ST FARIBA BONE 11X14 FDA Start: 01-14-2019 Repair, hernia, ventral or umbilical, laparoscopic STAPLER,PROTACK 5MM HERNIA FDA Start: 01-14-2019 Repair, hernia, ventral or umbilical, 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,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 FDA Start: 01-14-2019 Repair, hernia, ventral or umbilical, laparoscopic MESH,VENTLEX ST MED 6.4CM FDA Start: 01-14-2019 Repair, hernia, ventral or umbilical, laparoscopic [facility] 11X14 FDA Start: 01-14-2019 Repair, hernia, ventral or umbilical, laparoscopic STAPLER,PROTACK 5MM HERNIA FDA Start: 01-14-2019 Repair, hernia, ventral or umbilical, 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,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 FDA Start: 01-14-2019 Repair, hernia, ventral or umbilical, laparoscopic MESH,VENTLEX ST MED 6.4CM FDA Start: 01-14-2019 Repair, hernia, ventral or umbilical, laparoscopic [facility] 11X14 FDA Start: 01-14-2019 Repair, hernia, ventral or umbilical, laparoscopic STAPLER,PROTACK 5MM HERNIA FDA Start: 01-14-2019 Repair, hernia, ventral or umbilical, 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,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 FDA Start: 01-14-2019 Repair, hernia, ventral or umbilical, laparoscopic MESH,VENTLEX ST MED 6.4CM FDA Start: 01-14-2019 Repair, hernia, ventral or umbilical, laparoscopic [facility] 11X14 FDA Start: 01-14-2019 Repair, hernia, ventral or umbilical, laparoscopic STAPLER,PROTACK 5MM HERNIA FDA Start: 01-14-2019 Repair, hernia, ventral or umbilical, 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,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 FDA Start: 01-14-2019 Repair, hernia, ventral or umbilical, laparoscopic MESH,VENTLEX ST MED 6.4CM FDA Start: 01-14-2019 Repair, hernia, ventral or umbilical, laparoscopic MESH,RYLEY RUTH MD 11X14 FDA Start: 01-14-2019 Repair, hernia, ventral or umbilical, laparoscopic STAPLER,PROTACK 5MM HERNIA FDA Start: 01-14-2019 Repair, hernia, ventral or umbilical, 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,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 FDA Start: 01-14-2019 Repair, hernia, ventral or umbilical, laparoscopic MESH,VENTLEX ST MED 6.4CM FDA Start: 01-14-2019 Repair, hernia, ventral or umbilical, laparoscopic MESH,RYLEY RUTH MD 11X14 FDA Start: 01-14-2019 Repair, hernia, ventral or umbilical, laparoscopic STAPLER,PROTACK 5MM HERNIA FDA Start: 01-14-2019 Repair, hernia, ventral or umbilical, 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,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 FDA Start: 01-14-2019 Repair, hernia, ventral or umbilical, laparoscopic MESH,VENTLEX ST MED 6.4CM FDA Start: 01-14-2019 Repair, hernia, ventral or umbilical, laparoscopic MESH,RYLEY RUTH MD 11X14 FDA Start: 01-14-2019 Repair, hernia, ventral or umbilical, laparoscopic STAPLER,PROTACK 5MM HERNIA FDA Start: 01-14-2019 Repair, hernia, ventral or umbilical, 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,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 FDA Start: 01-14-2019 Repair, hernia, ventral or umbilical, laparoscopic MESH,VENTLEX ST MED 6.4CM FDA Start: 01-14-2019 Repair, hernia, ventral or umbilical, laparoscopic MESH,RYLEY RUTH MD 11X14 FDA Start: 01-14-2019 Repair, hernia, ventral or umbilical, laparoscopic STAPLER,PROTACK 5MM HERNIA FDA Start: 01-14-2019 Repair, hernia, ventral or umbilical, 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,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 FDA Start: 01-14-2019 Functional Status Date Assessment Result [facility] 07-23-2018 Are you deaf, or do you have serious difficulty hearing No 07/23/2018 4:01 PM Nahed Mejía III, MD No [facility] 07-23-2018 Are you blind, or do you have serious difficulty seeing, even when wearing glasses No 07/23/2018 4:01 PM EDT Nahed Faust III, MD No [facility] 07-23-2018 Do you have serious difficulty walking or climbing stairs No 07/23/2018 4:01 PM EDT Nahed Faust III, MD [facility] 07-23-2018 Do you have difficul ty dressing or bathing No 07/23/2018 4:01 PM EDT Nahed Faust III, MD [facility] 07-23-2018 Because of a physica l, mental, or emotional condition, do you have difficulty doing errands alone such as visiting a physician's office or shopping No 07/23/2018 4:01 PM EDT Nahed Faust III, MD [facility] Mental Status Date Assessment Result Facility 07-23-2018 Because of a physica l, mental, or emotional condition, do you have serious difficulty concentrating, remembering, or making decisions No 07/23/2018 4:01 PM EDT Nahed Faust III, MD [facility] Clinical Notes 02-18-2018 to 12-19-2024 Pipo Amador RT(R) - 12/19/2024 11:00 AM EDViviana Figueroa APRN.AUDIO VISUAL EQUIPMENT RENTAL CLERK - 12/19/2024 10:50 AM EDT Note Date & Type Note Facility 12-19-2024 History of Present illness Narrative Radiology Service Progress Note PATIENT NAME: Hallie Guzman DATE OF SERVICE: December 19, 2024 TIME: 10:59 AM PATIENT IDENTITY VERIFICATION COMPLETED USING TWO (2) IDENTIFIERS: Name and Date of confirmed by patient verbally. FALL SCREENING: Has the patient had 2 falls in the last year or 1 fall with injury or currently using an Ambulatory Assistive Device (Walker, Cane, Wheelchair, Crutches, etc.)? No PATIENT GENDER DATA: Assigned female at . status: : No status: NO. PATIENT RELEVANT IMPLANT DATA REVIEWED: Not Applicable PATIENT PRESENTS WITH AN IMPLANTABLE OR ATTACHED LOOM OPERATOR APPRENTICE: No RADIOLOGY DEPARTMENT: General X-ray: Exam(s) Completed: Chest X-Ray PERIPHERAL IV DATA: Not applicable SIGNED BY: RT Karl(R) December 19, 2024 10:59 AM documented in this encounter [facility] 12-19-2024 Note HNO ID: [id number] Author: PIPO AMADOR RT(R) Service: Radiology Author Type: Technologist Type: Progress Notes Filed: 12/19/2024 11:04 Note Text: Radiology Service Progress Note PATIENT NAME: Hallie Guzman DATE OF SERVICE: December 19, 2024 TIME: 10:59 AM PATIENT IDENTITY VERIFICATION COMPLETED USING TWO (2) IDENTIFIERS: Name and Date of confirmed by patient verbally. FALL SCREENING: Has the patient had 2 falls in the last year or 1 fall with injury or currently using an Ambulatory Assistive Device (Walker, Cane, Wheelchair, Crutches, etc.)? No PATIENT GENDER DATA: Assigned female at . status: : No status: NO. PATIENT RELEVANT IMPLANT DATA REVIEWED: Not Applicable PATIENT PRESENTS WITH AN IMPLANTABLE OR ATTACHED LOOM OPERATOR APPRENTICE: No RADIOLOGY DEPARTMENT: General X-ray: Exam(s) Completed: Chest X-Ray PERIPHERAL IV DATA: Not applicable SIGNED BY: RT Karl(Wilder) December 19, 2024 10:59 AM [facility] 12-19-2024 Note HNO ID: [id number] Author: VIVIANA TOBIAS APRN.AUDIO VISUAL EQUIPMENT RENTAL CLERK Service: ? Author Type: Nurse Practitioner Type: Progress Notes Filed: 12/19/2024 11:45 Note Text: This note was created using NoteWriter. Subjective Hallie Guzman is a 74 year old female. HPI pt has been taking Z-pakk since Saturday with no improvement in cough/congestion. Fever/chills off/on, body aches, wheezing, SOB. Review of Systems Constitutional: Positive for chills and fever. Respiratory: Positive for cough, shortness of breath and wheezing. Objective BP 123/84 Pulse 92 Temp 37.2 ?C (98.9 ?F) Resp 16 Wt 67.5 kg (148 lb 13 oz) SpO2 95% BMI 25.54 kg/m? Physical Exam HENT: Head: Normocephalic. Nose: Congestion present. Cardiovascular: Rate and Rhythm: Normal rate. Pulmonary: Breath sounds: Wheezing present. Skin: General: Skin is warm. Neurological: Mental Status: She is alert. Assessment and Plan ASSESSMENT/PLAN: 1. Acute cough - ICD9: 786.2, ICD10: R05.1 (primary diagnosis) +pneumonia- Doxycycline orderd - XR CHEST 2V FRONTAL/LAT 2. Influenza A - ICD9: 487.1, ICD10: J10.1 Positive result Discussed supportive care If symptoms not improving in 3-5 days follow up with EC or PCP Viviana Tobias APRN.CNP [facility] 12-19-2024 History of Present illness Narrative This note was created using SureVisit. Subjective Hallie Guzman is a 74 year old female. HPI pt has been taking Z-pakk since Saturday with no improvement in cough/congestion. Fever/chills off/on, body aches, wheezing, SOB. Review of Systems Constitutional: Positive for chills and fever. Respiratory: Positive for cough, shortness of breath and wheezing. Objective BP 123/84 Pulse 92 Temp 37.2 C (98.9 F) Resp 16 Wt 67.5 kg (148 lb 13 oz) SpO2 95% BMI 25.54 kg/m Physical Exam HENT: Head: Normocephalic. Nose: Congestion present. Cardiovascular: Rate and Rhythm: Normal rate. Pulmonary: Breath sounds: Wheezing present. Skin: General: Skin is warm. Neurological: Mental Status: She is alert. Assessment and Plan ASSESSMENT/PLAN: 1. Acute cough - ICD9: 786.2, ICD10: R05.1 (primary diagnosis) +pneumonia- Doxycycline orderd - XR CHEST 2V FRONTAL/LAT 2. Influenza A - ICD9: 487.1, ICD10: J10.1 Positive result Discussed supportive care If symptoms not improving in 3-5 days follow up with EC or PCP Viviana Tobias APRN.AUDIO VISUAL EQUIPMENT RENTAL CLERK documented in this encounter [facility] 12-17-2024 Evaluation note Diagnosis Onset Date Resolution Acute bronchitis acute December 172024 4:36pm [facility] Work Phone: 1(904) 415-133603-20-2025 Evaluation note* Diagnosis Onset Date Resolution Status Admit Date Acute bronchitis acute December 172024 4:36pm Fatty liver acute April 13 9:25am [facility] Work Phone: 1(893) 356-225803-11-2025 Evaluation note* Diagnosis Onset Date Resolution Status Admit Date Elevated coronary artery marley cium score acute December 08, 2024 1:43pm Essential hypertension acute [facility] 2024 1:43pm Acute bronchitis acute December 172024 4:36pm [facility] Work Phone: 1(918) 809-793112-11-2024 Evaluation note* Diagnosis Onset Date Resolution Status Admit Date Acute otitis externa of righ t ear acute September 09, 11:51am URI (upper respiratory infection) acute September 09 11:51am Constipation acute September 9:54am Weight loss acute October 23, 2024 9:54am GERD (gastroesophageal reflu x disease) chronic October 23 9:54am Elevated coronary artery calcium score acute December 08, 2024 1:43pm Essential hypertension acute [facility] 2024 1:43pm [facility] Work Phone: 1(159) 464-543612-11-2024 Evaluation note* Diagnosis Onset Date Resolution Status Admit Date Acute otitis externa of righ t ear acute September 09, 024 11:51am URI (upper respiratory infection) acute September 09 11:51am Constipation acute September 9:54am Weight loss acute October 23, 2024 9:54am GERD (gastroesophageal reflu x disease) chronic October 23 9:54am Elevated coronary artery calcium score acute December 08, 2024 1:43pm Essential hypertension acute [facility] 2024 1:43pm Acute bronchitis acute December 172024 4:36pm [facility] Work Phone: 1(543) 536-398207-05-2024 NoteHNO ID: [id number] Author: CASH LAMA MD Service: ? Author Type: Physician Type: Progress Notes Filed: 04/03/2024 12:44 Note Text: [facility] - FOLLOW UP EVALUATION Cash Arias DO [address] [facility] [address] [facility] [address] Dear Cash Arias DO: I had the pleasure of seeing Ms. Guzman for follow-up today. As you know she is a 73 year old right-handed female with a history of ET, RLS, neuropathy since years . She is seen alone. Subjective Previous Plan-08/01/2023 Visit: - Try reducing gabapentin to 300 mg at bedtime for at least 1 week. If legs feel ok then you can try going off it. If unable to continue off it continue with 300 mg or 600 mg depending on your response. - Consider trying magnesium: Magnesium can help with sleep, relaxation, headaches, mood, and RLS and can keep stools regular. If you have regular bowel movements or constipation, try Mg Citrate (best absorbed), Mg Oxide (best for constipation) or Mg Malate. If you are diarrhea prone, try Mg Glycinate or Mg Taurate. Calm, Pure Encapsulation, [employer] research are reliable brands. Dose 250-300 mg and up to 900-1000mg. Would not go beyond 1200 mg. With any supplements or medications, if you develop any rashes, swelling, difficulty breathing or any other concerning symptom please seek immediate medical attention. Nonmedical therapy for restless legs syndrome includes: cold/warm compresses, warm/hot baths or showers, gentle massage, mild leg stretching at nighttime, magnesium supplements (500mg-1000mg). Mentally alerting activities help too. Note that caffeine, alcohol, antidepressants, antinausea medications and antihistamines can cause or worsen symptoms. Interval History: RLS is manageable. On gabapentin 300 mg. Some nights doesn't sleep well but not primarily because of the legs. No help with magnesium. Melatonin didn't help. Tremor is a little worse. Affects drinking, eating. Manageable. Movement Disorders Medications Schedule - as of the start of the visit: Medications Other Movement Disorder Prior Therapies Gabapentin Questionnaires: In addition, the following activities of daily living that may be affected by tremors were evaluated: Speaking: Not affected Feeding: Not affected Bringing Liquids to Mouth: Not affected Hygiene: Not affected Dressing: Not affected Writing: Affected (mild) Working: n/a Number of falls in the Last Month: none Mood/Behavior Depression: PHQ-9 Score: 2 usually representing no significant (0-4) depression. Anxiety: Finally, the following table shows the patient's overall global physical and mental health using the PROMIS scale: PROMIS-10 Flowsheet Row Office Visit from 04/01/2024 in Neurology Office Visit from 08/01/2023 in Neurology Global Physical Health T Score 50.8 50.8 Global Mental Health T Score 48.3 48.3 0-10 Standard Pain Scale 5 5 *PROMIS-10 scoring scale: mean = 50, over 50 is above average, under 50 is below average ALLERGIES Allergen Reactions Sulfamethoxazole Other: See Comments Very shaky Lipitor [Atorvastat* Myalgia Current Outpatient Medications Medication Sig simvastatin (ZOCOR) [...] a week for 4 weeks gabapentin (NEURONTIN) 300 mg capsule Take 1 capsule by mouth daily at bedtime for 180 days. No current facility-administered medications for this visit. Objective Vital Signs: BP 131/83 (BP Site: Left Arm, BP Position: Sitting, BP Cuff Size: Regular Adult) Pulse 63 Wt 73.3 kg (161 lb 9.6 oz) SpO2 98% BMI 27.74 kg/m? Orthostatic Vitals: None for this encounter Weight: 73.3 kg (161 lb 9.6 oz) No LMP recorded. Patient has had a hysterectomy. Body mass index is 27.74 kg/m?. General Physical Examination: General: Awake, alert, interactive, no acute distress, good nutritional status, normal development, well-kept (more content not included)...[facility]07-05-2024 History of Present illness Narrative* Cash Lama MD - 04/03/2024 12:42 PM EDT [facility] - FOLLOW UP EVALUATION Cash Arias DO [address] [place] [address] [facility] [address] Dear Cash Arias DO: I had the pleasure of seeing Ms. Guzman for follow-up today. As you know she is a 73 year old right-handed female with a history of ET, RLS, neuropathy since years . She is seen alone. Subjective Previous Plan-08/01/2023 Visit: - Try reducing gabapentin to 300 mg at bedtime for at least 1 week. If legs feel ok then you can try going off it. If unable to continue off it continue with 300 mg or 600 mg depending on your response. - Consider trying magnesium: Magnesium can help with sleep, relaxation, headaches, mood, and RLS and can keep stools regular. Ifyou have regular bowel movements or constipation, try Mg Citrate (best absorbed), Mg Oxide (best for constipation) or Mg Malate. If you are diarrhea prone, try Mg Glycinate or Mg Taurate. Calm, Pure Encapsulation, Drea research are reliable brands. Dose 250-300 mg and up to 900-1000mg. Would not go beyond 1200 mg. With any supplements or medications, if you develop any rashes, swelling, difficulty breathing or any other concerning symptom please seek immediate medical attention. Nonmedical therapy for restless legs syndrome includes: cold/warm compresses, warm/hot baths or showers, gentle massage, mild leg stretching at nighttime, magnesium supplements (500mg-1000mg). Mentally alerting activities help too. Note that caffeine, alcohol, antidepressants, antinausea medications and antihistamines can cause or worsen symptoms. Interval History: RLS is manageable. On gabapentin 300 mg. Some nights doesn't sleep well but not primarily because of the legs. No help with magnesium. Melatonin didn't help. Tremor is a little worse. Affects drinking, eating. Manageable. Movement Disorders Medications Schedule - as of the start of the visit: Medications Other Movement Disorder Prior Therapies Gabapentin Questionnaires: In addition, the following activities of daily living that may be affected by tremors were evaluated: Speaking: Not affected Feeding: Not affected Bringing Liquids to Mouth: Not affected Hygiene: Not affected Dressing: Not affected Writing: Affected (mild) Working: n/a Number of falls in the Last Month: none Mood/Behavior Depression: PHQ-9 Score: 2 usually representing no significant (0-4) depression. Anxiety: Finally, the following table shows the patient's overall global physical and mental health using the PROMIS scale: PROMIS-10 Flowsheet Row Office Visit from 04/01/2024 in Neurology Office Visit from 08/01/2023 in Neurology Global Physical Health T Score 50.8 50.8 Global Mental Health T Score 48.3 48.3 0-10 Standard Pain Scale 5 5 *PROMIS-10 scoring scale: mean = 50, over 50 is above average, under 50 is below average ALLERGIES Allergen Reactions Sulfamethoxazole Other: See Comments Very shaky Lipitor [Atorvastat* Myalgia Current Outpatient Medications Medication Sig simvastatin (ZOCOR) [...] mouth once daily. Take on empty stomach. ForThyroid pantoprazole DR (PROTONIX) 40 mg tablet Take [...] Use small amount at vaginal opening 3 nightsa week for 4 weeks gabapentin (NEURONTIN) 300 mg capsule Take 1 capsule by mouth daily at bedtime for 180 days. No current facility-administered medications for this visit. Objective Vital Signs: BP 131/83 (BP Site: Left Arm, BP Position: Sitting, BP Cuff Size: Regular Adult) Pulse 63 Wt 73.3 kg (161 lb 9.6 oz) SpO2 98% BMI 27.74 kg/m Orthostatic Vitals: None for this encounter Weight: 73.3 kg (161 lb 9.6 oz) No LMP recorded. Patient has had a hysterectomy. Body mass index is 27.74 kg/m . General Physical Examination: General: Awake, alert, interactive, no acute distress, good nutritional status, normal development,well-kept General Neurological Examination: Neurological Exam Mental Status Awake and alert. Language is fluent with no aphasia. Assessment and Plan: Assessment Ms. Guzman is a right-handed 73 year old year old female with ET, RLS, and neuropathy. Transitioned care from Dr. Sneed. Neuropathy work-up was negative in the past. Her RLS is manageable on gabapentin. No change to dose. She will try melatonin for insomnia. Tremor is noticeable but not bothersome enough for her to want to add a medication. The following are the current problems noted and addressed during this visit: Essential tremor Rls (restless legs syndrome) Plan 04/01/2024 Visit: Continue your medications as you have been taking them. We are not making any changes today. If youfeel you are not tolerating them or your symptoms are changing before your next appointment, pleasefeel free to send me a IMshopping message or contact the office Try melatonin for sleep. Start with 3 mg at bedtime and increase as needed and tolerated every few days. No more than 9-12 mg per day. Updated Movement Disorders Medication Schedule: Medications Return at or around: 04/01/25 Medical Decision Making: Problems: Moderate: 2+ stable chronic illnesses Risk: Moderate: Drug management Medical Decision Making Level: 4 - Moderate Thank you for allowing me to be part of the clinical care of this patient! I look forward to continued participation in the patient s care with you. Please do not hesitate to call with any questions. Sincerely, Cash Lama MD documented in [facility] Instructions* Patient Instructions* Cash Lama MD - 04/01/2024 3:21 PM EDT It was a pleasure to see you today. We addressed the following diagnoses: Essential tremor Rls (restless legs syndrome) My recommendations are as follows: Continue your medications as you have been taking them. We are not making any changes today. If youfeel you are not tolerating them or your symptoms are changing before your next appointment, pleasefeel free to send me a IMshopping message or contact the office Try melatonin for sleep. Start with 3 mg at bedtime and increase as needed and tolerated every few days. No more than 9-12 mg per day. If there are any concerns before your next visit, please call or you can send a message through [employer]. You can also now schedule and select appointments through [employer]. Cash Lama MD documented in this encounterOhio[facility] Miscellaneous Notes* Telephone Encounter - Melanie Espinoza - 01/02/2024 8:22 AM EDT Request from patient requesting refill. Please E-Scribe to [facility]. Last OV: 08/01/23 with KA Future OV: 04/01/24 with KA Requested Prescriptions Pending Prescriptions Disp Refills gabapentin (NEURONTIN) 300 mg capsule 30 capsule 2 Sig: Take 1 capsule by mouth daily at bedtime for 90 days. Melanie Parker documented in this encounterOhiohealth [facility] Discharge summary Author Gagandeep Mcneill [facility] May 31, 2023 7:51am Note Date/Time May 31, 2023 7:50am [facility] Physical Therapy [facility] [address] [place] [address] / REHABILITATION SERVICES DISCHARGE SUMMARY MR#: [id number] Acct: [id number] Name: HALLIE GUZMAN Rep #: [id number] : 1950 73 From: Naty Arvizu. MDT, OCS Referring Dr.: OUT OF TOWN DOCTOR Status: REG RCR Insurance: MEDICARE PART A B [facility] Discharge Summary D/C summary: It has been my pleasure to treat HALLIE GUZMAN referred by TIMOTHY ISAAC, withthe diagnosis of TROCHANTERIC BURSITIS RIGHT HIP ,ILIOTIBAL BAND SYNDROME RIGHT LEG for a total of 8 visit(s). Discharge Date: 04/09/23 Please see the following information for a summary of their discharge status. Subjective Subjective: Pain about same plan to see Pain Right Hip: Pain Intensity (Out of 10): 5 Overall Improvement % Improvement: 20 Objective Objective/Function: POSTURE: mild forward posture. GAIT: reciprocal pattern. PALAPTION: tender greater trochanteric ,IT band. NEURO: intact. AROM: hip flexion 120 degrees ,ER 60 degrees ,IR 45 degrees. PROM: ITBAND Min Tight. MMT: quads/hams 4/5 ,hip flexion 4/5 ( peak force) hip abduction 15.2 Goals Goal 1:: Patient to be I with HEP for hip Goal Progress: Goal Met Goal 2:: Patient to demonstrate 50% improvement with decrease pain and improved. Goal Progress: Progressing Goal 3:: Patient to improve peak force by 10 points to improve gait Goal Progress: Progressing Goal 4:: Patient be able to sleep on right side without pain Goal Progress: Progressing Goal 5:: Patient to improve LFES score by 5-10 points to improve QOL Goal Progress: Progressing Plan Plan: D/C TO HEP RTD D/C Information Discharge Comments: RTD d/c sentence: If there are questions or concerns regarding this patient's physical therapy, please feel free to call me at [phone]. Thank you for the referral of thispatient. Sincerely, Gagandeep Mcneill, PT, Cert MDT, OCS Balance/Gait/Functional tests Balance/Special Test Scores Lower Extremity Functional Score: 40 Improvement % Improvement: 20 <Electronically signed by Gagandeep Mcneill PT, Cert. T, OCS> 05/31/23 0751 CC: TIMOTHY ISAAC; Dr. Ash Roberts MD ~ DAVIS Signed [facility] Work Phone: 1(328) 831-150407-10-2023 Miscellaneous Notes* Telephone Encounter - Prabha Mai RN - 04/08/2023 4:02 PM EDT Carotid Duplex study results in scanned documents for your review. * Telephone Encounter - Edyta Membreno - 04/08/2023 3:15 PM EDT Received fax from [facility] with Carotid Duplex Scan dated 01/10/23. Scanned into [employer]. documented in this encounterOhio[facility]23 NoteHNO ID: [id number] Author: Heather Sneed MD Service: ? Author Type: Physician Type: Progress Notes Filed: 04/08/2023 10:40 AM Note Text: [facility] Follow up/ Established patient visit Individuals who were included in, or assisted with the encounter were: Hallie Guzman Heather Sneed MD Chief Complaint/Issues: Hallie Guzman is a 72 year old R handed female w PMH HTN, HLP, hypothyroidism, seen in the [facility] for: RLS, essential tremor and neuropathy Most Recent Neurological Assessment and Plan: Last Filed Values Date of Most Recent Assessment and Plan 12/24/22 Specialty General Neurology Assessment Hallie Guzman is a 72 year old R handed female w PMH HTN, HLP, hypothyroidism, seen in the [facility] for: 1. RLS, essential [...] not on aspirin. She will see a capsule machine operator next week. RF, ANTONETTE, MMA, copper, syphilis, [...] 127/82 Pulse 92 Ht 162.6 cm (5' 4) Wt 74.5 kg (164 lb 4.8 oz) [...] General Neurology, Heather Sneed MD ASSESSMENT Hallie Guzman is a 72 year old R handed female w PMH HTN, HLP, hypothyroidism, seen in the [facility] for: 1. RLS, essential tremor and neuropathy -- Numbness and weakness in the lower legs: Likely multifactorial due to the circulatory issues, arthritis, and may be superimposed small fiber polyneuropathy. I asked her to follow-up with her PCP and vascular (more content not included)...[id number] Instructions* Patient Instructions* Heather Sneed MD - 04/08/2023 10:08 AM EDT --Please discuss with your capsule machine operator about whether it's ok for you to [...] up in 6 months documented in this encounterOhiohealth [facility]23 History of Present illness Narrative* Heather Sneed MD - 04/08/2023 9:36 AM EDT Images from the original note were not included. [facility] General Neurology Follow up/ Established patient visit Individuals who were included in, or assisted with the encounter were: Hallie Guzman Heather Sneed MD Chief Complaint/Issues: Hallie Guzman is a 72 year old R handed female w PMH HTN, HLP, hypothyroidism, seen in the [facility] for: RLS, essential tremor and neuropathy Most Recent Neurological Assessment and Plan: Last Filed Values Date of Most Recent Assessment and Plan 12/24/22 Specialty General Neurology Assessment Hallie Guzman is a 72 year old R handed female w PMH HTN, HLP, hypothyroidism, [facility]: 1. RLS, essential [...] bedtime and 100 mg in the morning. Chelsishe continues to wake up at night due to the restless leg syndrome. PCP is talking about increasingNeurontin to 600 mg daily. She denies any [...] 0.91 on the left. She saw vascular Dr. Miles told everything is okay. She is not on aspirin. She will see a capsule machine operator next week. RF, ANTONETTE, MMA, copper, syphilis, HIV, SPEP, UPEP were all negative. Vit E 26.5. She is on neurontin 600mg bedtime at night for RLS. It's been good. She is wondering whether it canbe reduced to 300 mg at bedtime. The essential tremor bothers her sometimes. It comes and goes. She would like to try some medications for it. General Examination: BP 127/82 Pulse 92 Ht 162.6 cm (5' 4) Wt 74.5 kg (164 lb 4.8 oz) BMI 28.20 kg/m General: Awake, alert, interactive, no acute distress, good nutritional status, normal development,well-kept Neurological Exam Mental Status Alert, fully oriented, [...] General Neurology, Heather Sneed MD ASSESSMENT Hallie Guzman is a 72 year old R handed female w PMH HTN, HLP, hypothyroidism, seen in the [facility] for: 1. RLS, essential [...] well on Neurontin 600 mg at bedtime. Kendra would like to reduce it. I discussed [...] will also discuss about this with her capsule machine operator at the upcoming cardiology appointment. --HTN --HLP --hypothyroidism --B12 deficiency: Supplemented PLAN -- We will try propanolol 60 mg daily. She will discuss about it with her capsule machine operator. She was stopped at if she feels heart racing or blood pressure is low. --reduce neurontin to 300mg bedtime. --Follow up with her vascular doctor about the abnormal ankle/brachial index --Follow up in 6 months No diagnosis found. No follow-ups on file. Data Review Objective Current Outpatient Medications Medication [...] mouth once daily. Take on empty stomach. ForThyroid pantoprazole DR (PROTONIX) 40 mg tablet Take [...] Use small amount at vaginal opening 3 nightsa week for 4 weeks gabapentin (NEURONTIN) 100 [...] w/ lysis of adhesions LAP COLECTOMY, SIGMOID W/REMOTE SENSING ANALYST 11/11/2017 [facility]-Dr. Loree Morgan PAST SURGICAL HISTORY OF LAPAROSCOPY FOR INFERTILITY [...] Nonreactive Nonreactive HIV-1/2 AB (Confirmatory) HIV Interpretation [facility] IGG AB Result Value Ref Range SM Antibody Qual Negative Negative SM Antibody <0.2 <1.0 AI [facility] ANTIBODY BLOOD Result Value Ref Range [facility] Antibody QUAL Negative Negative [facility] Antibody <0.2 <1.0 AI ANTI SSA BLD [...] Dara 1 Antibody <0.2 <1.0 AI RIBOSOMAL [facility] AB BLD Result Value Ref Range Ribosomal [facility] Qualitative Negative Negative Ribosomal [facility] <0.2 <1.0 AI CHROMATIN ANTIBODY Result Value [...] electrophoresis does not entirely exclude the presence ofmonoclonal gammopathy in urine. Monoclonal protein analysis (immunofixation), [...] which included preparing to see the patient, [id number] patient care, completing clinical documentation, obtaining and/or reviewing separately obtained history, performing a medically appropriate examination, counseling and educating the pat ient/family/caregiver, ordering medications, tests, or procedures, independently interpreting results (not separately reported), communicating results to the patient/family/caregiver, and care coordination (not separately reported). Heather Sneed MD documented in this encounterOhiohealth [facility]04-04-2023 History of Present illness Narrative* Yomaira Ng MA - 01/01/2023 8:09 AM EDT POPULATION HEALTH NAVIGATION OUTREACH Action/FYI INVALID NUMBER [employer] MESSAGE SENT Patient reply thru [employer]. She was a new PCP. D69.6 - Thrombocytopenia ([facility]) - [id number] Last Billed 10/17/2021 ANNUAL MEDICARE WELLNESS ANNUAL PCP TEAM CHRONIC DISEASE VISIT due on 08/14/2022 MAMMOGRAM due on 02/06/2023 Patient Identified by Name and : NO Outreach Outcome/Action Unable to reach patient: Phone number not valid / voicemail full [employer] message sent PCP field updated Did you [...] 01, 2023 8:09 AM documented in this encounterOhiohealth Arthur [facility]03-27-2023 NoteHNO ID: [id number] Author: Heather Sneed MD Service: ? Author Type: Physician Type: Progress Notes Filed: 12/24/2022 3:45 PM Note Text: [facility] New Patient Evaluation Consulting Provider: SELF Individuals who were included in, or assisted with the encounter were: Hallie Guzman Heather Sneed MD Chief Complaint/Issues: Hallie Guzman is a 72 year old R handed female w PMH HTN, HLP, hypothyroidism, seen in the [facility] for: RLS, essential tremor [...] General Neurology, Heather Sneed MD ASSESSMENT Hallie Guzman is a 72 year old R handed female w PMH HTN, HLP, hypothyroidism, seen in the [facility] for: 1. RLS, essential [...] No diagnosis found. No follow-ups on file. Data Review Objective Current Outpatient Medications Medication Sig - simvastatin (ZOCOR) 40 mg tablet TAKE 1 TABLET BY MOUTH EVERYDAY AT BEDTIME - albuterol HFA (PROAIR HFA) 90 m (more content not included)...[facility] [id number] Instructions* Patient Instructions* Heather Sneed MD - 12/24/2022 2:05 PM EDT --Try alpha lipoic acid 200mg twice a day for neuropathy --Try neurontin 600mg at bedtime for restless leg syndrome. You may stop morning dose if it doesn'twork --We will do blood test today to rule out other causes of neuropathy --You may try propranolol for both hypertension and essential tremor --Follow up in 3-4 months documented in this encounterOhiohealth Arthur [facility]03-27-2023 History of Present illness Narrative* Heather Sneed MD - 12/24/2022 1:13 PM EDT Images from the original note were not included. [facility] New Patient Evaluation Consulting Provider: SELF Individuals who were included in, or assisted with the encounter were: Hallie Dileep Sneed MD Chief Complaint/Issues: Hallie Guzman is a 72 year old R handed female w PMH HTN, HLP, hypothyroidism, seen in the [facility] for: RLS, essential tremor [...] bedtime and 100 mg in the morning. Butshe continues to wake up at night due to the restless leg syndrome. PCP is talking about increasingNeurontin to 600 mg daily. She denies any [...] no acute distress, good nutritional status, normal development,well-kept Skin: Rash: absent Pigmentation: absent HEENT: Head: [...] and tone. No drift. Normal rapid alternating movementsand coordination. Mild head tremor and action tremor [...] General Neurology, Heather Sneed MD ASSESSMENT Hallie Guzman is a 72 year old R handed female w PMH HTN, HLP, hypothyroidism, seen in the [facility] for: 1. RLS, essential [...] No diagnosis found. No follow-ups on file. Data Review Objective Current Outpatient Medications Medication [...] mouth once daily. Take on empty stomach. ForThyroid pantoprazole DR (PROTONIX) 40 mg tablet Take [...] Use small amount at vaginal opening 3 nightsa week for 4 weeks No current facility-administered [...] w/ lysis of adhesions LAP COLECTOMY, SIGMOID W/REMOTE SENSING ANALYST 11/11/2017 [facility]-Dr. Loree Morgan PAST SURGICAL HISTORY OF LAPAROSCOPY FOR INFERTILITY PAST SURGICAL HISTORY OF 02/2011 right index finger ganglion cyst removal REPAIR FIRST ABDOMINAL WALL HERNIA 01/14/2019 Hernia repair, incisional, laparoscopic incarcerated incisional hernia rapair x 2 TOT ABD HYST W/WO RMVL TUBE OVARY W/COLPURETHRXY 1997 BIRCH TOTAL ABDOMINAL HYSTERECT W/WO RMVL TUBE OVARY 1997 Social History Tobacco Use Smoking status: Never [...] which included preparing to see the patient, [id number] patient care, completing clinical documentation, obtaining and/or reviewing separately obtained history, performing a medically appropriate examination, counseling and educating the pat ient/family/caregiver, ordering medications, tests, or procedures, independently interpreting results (not separately reported), communicating results to the patient/family/caregiver, and care coordination (not separately reported). Heather Sneed MD documented in this encounterOhiohealth Arthur [facility]02-07-2023 History of Present illness Narrative* Yomaira Ng MA - 11/06/2022 10:38 AM EST POPULATION HEALTH NAVIGATION OUTREACH Action/FYI [facility] [employer] MESSAGE SENT ANNUAL MEDICARE WELLNESS EXAM INFLUENZA(1) due on 05/31/2022 ANNUAL PCP TEAM CHRONIC DISEASE VISIT due on 08/14/2022 Patient Identified by Name and : NO Outreach Outcome/Action Unable to reach patient: Left message [employer] message sent Did you use a PCP [...] 06, 2022 10:38 AM documented in this encounterOhiohealth Arthur G.[facility] Center10-18-2022 Miscellaneous Notes* Telephone Encounter - Lynn Fuller Ma - 07/17/2022 11:39 AM EDT Last OV: 04/19/2022 Next OV: 07/30/2022 documented in this encounterOhiohealth Arthur G.[facility]. [facility] Center07-21-2022 Miscellaneous Notes* Telephone Encounter - Candelaria Lee RN - 04/19/2022 10:17 AM EDT Pt called I and asked to have gastro referral faxed over to Dr Lanier. Referral was faxed to [phone]. documented in this encounterOhiohealth Arthur G.[facility]. [facility] Center07-21-2022 History of Present illness Narrative* Parul Cummings APRN.HYDRODYNAMICIST - 04/19/2022 8:00 AM EDT SUBJECTIVE: BP CONTROLLED (<130/80) Never done COVID-19 VACCINE(3 - Booster for Moderna series) due on 05/24/2021 HPI Hallie Guzman is a 71 year old female. Presents [...] left knee, has an upcoming appointment with [facility]. She notes both brothers now with CAD. [...] 130/74 07/26/2021 118/76 07/11/2021 136/82 Hyperlipidemia. Ms. Guzman doing well on current therapy Her most [...] 02/03/2022 129 The 10-year ASCVD risk score (Murdockdaniel SALCIDO Jr., et al., 2013) is: 11.9% [...] medial meniscectomy on February 28, 2022 with [facility]. Notes that she was taking 600 mgibuprofen 4 times daily following the surgery. Note [...] mouth once daily. Take on empty stomach. ForThyroid pantoprazole DR (PROTONIX) 40 mg tablet Take [...] Use small amount at vaginal opening 3 nightsa week for 4 weeks PAST MEDICAL HISTORY [...] 1.00 - 4.00 k/uL 0.97 (L) 1.16 [place]% % 9.8 10.6 Abs [place] <0.87 k/uL 0.44 0.58 Eosin% % 4.5 [...] up with gastroenterology, consult placed. Parul Cummings APRN.HYDRODYNAMICIST Medical Decision Making: Problems: Moderate: 1+ chronic illnesses with change Risk: Moderate: Drug management Medical Decision Making Level: 4 - Moderate documented in this encounterOhiohealth Arthur G.[facility] Center05-20-2022 Miscellaneous Notes* Telephone Encounter - Palmira Sheppard LPN - 02/16/2022 12:54 PM EDT Patient phones requesting refills as follows: Pending Prescriptions Disp Refills METOPROLOL SUCCINATE ER 25 MG TABLET,EXTENDED RELEASE 24 HR 30 tablet 5 Sig: Take 1 tablet by mouth once daily. NICA: No JUD-01/30/22 Labs-02/03/22 NOV-07/30/22 med filled 01/26/21 Please review and advise. Palmira Sheppard LPN documented in this [facility]05-13-2022 Miscellaneous Notes* Telephone Encounter - Esperanza Levine RN - 02/09/2022 9:55 PM EDT Reason for call: patient had blood and mucous on the toilet paper when wiping after having a bowel movement two different times. Patient is also having some rectal discomfort Outcome for call: see PCP within 2 weeks, transferred to [place] at the appointment center to make an [...] passed blood and mucous Protocols used: RECTAL [id number] documented in this encounterOhiohealth Arthur G.[facility]. [facility]05-09-2022 Miscellaneous Notes* Telephone Encounter - Marita Wong LPN - 02/05/2022 4:29 PM EDT Patient notified of providers message and verbalized understanding. Patient has not been taking hersimvastatin regularly so will do this and recheck labs in 6 months. * Telephone Encounter - Parul Cummings APRN.RESHMA - 02/05/2022 4:00 PM EDT Vitamin D is within normal limits. Cholesterol [...] ng/mL 37.0 The 10-year ASCVD risk score (Floresitadaniel SALCIDO Jr., et al., 2013) is: 14.3% Values used to calculate the score: Age: 71 years Sex: Female Is Non- : No Diabetic: No Tobacco smoker: No Systolic Blood Pressure: 130 mmHg Is BP treated: Yes HDL Cholesterol: 41 mg/dL Total Cholesterol: 234 mg/dL documented in this encounterOhiohealth Arthur G.[facility]. [facility]05-03-2022 History of Present illness Narrative* Parul Cummings APRN.CNS - 01/30/2022 9:40 AM EDT SUBJECTIVE: BP CONTROLLED (<130/80) Never done MAMMOGRAM due on 02/01/2021 COVID-19 VACCINE(3 - Booster for Moderna series) due on 05/24/2021 ADVANCE DIRECTIVE DISCUSSION Never done HPI Hallie Guzman is a 71 year old female. Presents [...] left knee, has an upcoming appointment with [facility]. She notes both brothers now with CAD. [...] 130/74 07/26/2021 118/76 07/11/2021 136/82 Hyperlipidemia. Ms. Guzman doing well on current therapy Her most recent lipid panels are: Cholesterol, Total (mg/dL) Date Value 10/28/2020 217 05/09/2020 172 HDL Cholesterol (mg/dL) Date Value 10/28/2020 37 05/09/2020 34 LDL Cholesterol (mg/dL) Date Value 10/28/2020 156 05/09/2020 114 Triglyceride (mg/dL) Date Value 10/28/2020 120 05/09/2020 119 The 10-year ASCVD risk score (Murdockdaniel SALCIDO Jr., et al., 2013) is: 14.3% [...] mouth once daily. Take on empty stomach. ForThyroid pantoprazole DR (PROTONIX) 40 mg tablet Take [...] Use small amount at vaginal opening 3 nightsa week for 4 weeks PAST MEDICAL HISTORY [...] 1.00 - 4.00 k/uL 0.97 (L) 1.16 [place]% % 9.8 10.6 Abs [place] <0.87 k/uL 0.44 0.58 Eosin% % 4.5 [...] All prescriptions have been APPROPRIATELY filled. No suspiciousactivity was identified. 01/30/2022 by Parul Cummings APRN.HYDRODYNAMICIST 6. Hyperlipidemia LDL goal <100 - ICD9: 272.4, ICD10: E78.5 When last checked suboptimal control, recheck today. Currently taking Zocor, prior intolerance of atorvastatin with muscle aches. - LIPID PANEL, NONFASTING 7. Acute pain of left knee M 25. 562 Consistent with meniscus tear, has upcoming appointment with [facility] Parul Cummings APRN.HYDRODYNAMICIST Medical Decision Making: Problems: Moderate: 2+ stable chronic illnesses Data: Unique test(s) ordered: 3+ Risk: Moderate: Drug management Medical Decision Making Level: 4 - Moderate . documented in this encounterOhiohealth Arthur [facility]04-21-2022 History of Present illness Narrative* Leatha Saravia - 01/18/2022 1:51 PM EDT POPULATION HEALTH NAVIGATION OUTREACH Action/FYI DECLINED Pt [...] 18, 2022 1:51 PM documented in this encounterOhiohealth Arthur G.[facility]. [facility]04-13-2022 Miscellaneous Notes* Telephone Encounter - Hailee Arias - 01/10/2022 3:47 PM EDT Patient's picked up disk * Telephone Encounter - Tasha Glaser - 01/10/2022 3:28 PM EDT Pt would like to order picker report and disc from her knee xr today. Informed patient there is usually 24 hours notice. Please inform her if she is not able to get this today. Her appt with Ortho outsideof Clinic at 8:15 tomorrow. Call her if this is no going to be done before 5. documented in this encounterOhiohealth Arthur G.[facility]. [facility] Center04-13-2022 History of Present illness Narrative* Pipo Amador RT(R) - 01/10/2022 2:10 PM EDT Radiology Service Progress Note PATIENT NAME: Hallie Guzman DATE OF SERVICE: January 10, 2022 TIME: 2:07 PM PATIENT IDENTITY VERIFICATION COMPLETED USING TWO (2) IDENTIFIERS: Name and Date of confirmedby patient verbally. FALL SCREENING: Has the patient had 2 falls in the last year or 1 fall with injury or currently using an Ambulatory Assistive Device (Walker, Cane, Wheelchair, Crutches, etc.)? No PATIENT GENDER DATA: Female. status: : No status: NO. PATIENT RELEVANT IMPLANT DATA REVIEWED: Not Applicable RADIOLOGY DEPARTMENT: General X-ray: Exam(s) Completed: Lower Extremity X- Ray(s): Knee, AP / Lat / Tunne / Merchant Left and Wt. Bearing PERIPHERAL IV DATA: Not applicable SIGNED BY: RT Karl(R) January 10, 2022 2:07 PM documented in this encounterAnthony Ville [address]-04-2022 Miscellaneous Notes* Telephone Encounter - Marita Wong LPN - 01/01/2022 1:32 PM EDT Patient notified of providers message and verbalized understanding. * Telephone Encounter - Parul Cummings APRN.CNS - 01/01/2022 12:05 PM EDT 01/25 appt Metabolic panel in acceptable range overall. Recommend getting sufficient fluid during the day and eating on a regular basis. This will help keep BUN creatinine and chloride within normal limits. Routine meals will help keep glucose in normal range. No PMH of DM is noted in chart. No results found for: HBA1C * Telephone Encounter - lAlyson Portillo LPN - 01/01/2022 10:33 AM EDT Pt calling to check status on lab results. Please advise. Allyson Portillo LPN * Telephone Encounter - Amanda Garcia RN - 12/27/2021 9:08 AM EDT Patient calls and is asking if provider can look at labs that were done last Saturday. Patient noticed that her glucose level was 69. Patient did not fast for her labs. Please review and advise, Amanda Garcia RN documented in this encounterOhiohealth Arthur G.[facility]. [facility]07-06-2021 History of Present illness Narrative* Brando Lion RT(R) - 04/04/2021 4:10 PM EDT Radiology Service Progress Note PATIENT NAME: Hallie Guzman DATE OF SERVICE: April 04, 2021 TIME: 4:09 PM PATIENT IDENTITY VERIFICATION COMPLETED USING TWO (2) IDENTIFIERS: Name and Date of confirmedby patient verbally. FALL SCREENING: Has the patient had 2 falls in the last year or 1 fall with injury or currently using an Ambulatory Assistive Device (Walker, Cane, Wheelchair, Crutches, etc.)? No PATIENT GENDER DATA: Female. status: : No status: NO. PATIENT RELEVANT IMPLANT DATA REVIEWED: Not Applicable RADIOLOGY DEPARTMENT: General X-ray: Exam(s) Completed: Abdomen X-Ray: Abdomen PERIPHERAL IV DATA: Not applicable SIGNED BY: RT Annette(R) April 04, 2021 4:09 PM documented in this encounterOhiohealth Arthur G.[facility]. [facility] Center09-22-2018 History of Present illness Narrative* PCP: Dr. Faust * GI: Dr. Guzman * Hallie Guzman is a 67 y/o female with a history of worsening constipation and crampy lower abdominal pain over the past few years. Has a long history of tortuous sigmoid colon on colonoscopies and was told that she may eventually need surgery. No known history of diverticulitis. Current symptoms are sev erely impacting her quality of life. * CT of abdomen on 09/25/17 showed diverticulosis of descending colon and sigmoid colon with mild wall thickening. * Attempt at BE to investigate for sigmoid stricture, but bowel prep was not successful and study aborted. * Last Colonoscopy in 2015, showed diverticulosis and sigmoid colon that was difficult to navigate. Patient reports that colonoscopy reproduced her lower abdominal pain. * PSH includes cholecystectomy, hysterectomy, bladder suspension. [id number] Work Phone: 1([phone]) 794-496805-22-2018 History of Past illness Narrative* Problem Noted Date Resolved Date Chronic post-operative pain 02/18/201807/01 Dysuria 03/27/2016 02/14/2017 Abnormal finding on chest xray 2015 0 02/14/2017 documented as of this encounter (statuses as of 01/01/2022) [facility]-22-[facility] History of Past illness Narrative* Problem Noted Date Resolved Date Chronic post-operative pain 02/18/201807/01 Dysuria 03/27/2016 02/14/2017 Abnormal finding on chest xray 2015 0 02/14/2017 documented as of this encounter (statuses as of 01/10/2022) [facility] History of Past illness Narrative* Problem Noted Date Resolved Date Chronic post-operative pain 02/18/201807/01 Dysuria 03/27/2016 02/14/2017 Abnormal finding on chest xray 2015 0 02/14/2017 documented as of this encounter (statuses as of 01/18/2022) [facility] of Past illness Narrative* Problem Noted Date Resolved Date Chronic post-operative pain 02/18/201807/01 Dysuria 03/27/2016 02/14/2017 Abnormal finding on chest xray 2015 0 02/14/2017 documented as of this encounter (statuses as of 01/30/2022) [facility] History of Past illness Narrative* Problem Noted Date Resolved Date Chronic post-operative pain 02/18/201807/01 Dysuria 03/27/2016 02/14/2017 Abnormal finding on chest xray 2015 0 02/14/2017 documented as of this encounter (statuses as of 02/05/2022) [facility] of Past illness Narrative* Problem Noted Date Resolved Date Chronic post-operative pain 02/18/201807/01 Dysuria 03/27/2016 02/14/2017 Abnormal finding on chest xray 2015 0 02/14/2017 documented as of this encounter (statuses as of 02/10/2022) [facility] of Past illness Narrative* Problem Noted Date Resolved Date Chronic post-operative pain 02/18/201807/01 Dysuria 03/27/2016 02/14/2017 Abnormal finding on chest xray 2015 0 02/14/2017 documented as of this encounter (statuses as of 02/16/2022) [facility] of Past illness Narrative* Problem Noted Date Resolved Date Chronic post-operative pain 02/18/201807/01 Dysuria 03/27/2016 02/14/2017 Abnormal finding on chest xray 2015 0 02/14/2017 documented as of this encounter (statuses as of 04/19/2022) [facility] of Past illness Narrative* Problem Noted Date Resolved Date Chronic post-operative pain 02/18/201807/01 Dysuria 03/27/2016 02/14/2017 Abnormal finding on chest xray 2015 0 02/14/2017 documented as of this encounter (statuses as of 04/19/2022) [facility] of Past illness Narrative* Problem Noted Date Resolved Date Chronic post-operative pain 02/18/201807/01 Dysuria 03/27/2016 02/14/2017 Abnormal finding on chest xray 2015 0 02/14/2017 documented as of this encounter (statuses as of 07/17/2022) [facility] of Past illness Narrative* Problem Noted Date Resolved Date Chronic post-operative pain 02/18/201807/01 Dysuria 03/27/2016 02/14/2017 Abnormal finding on chest xray 2015 0 02/14/2017 documented as of this encounter (statuses as of 11/06/2022) [facility] of Past illness Narrative* Problem Noted Date Resolved Date Chronic post-operative pain 02/18/201807/01 Dysuria 03/27/2016 02/14/2017 Abnormal finding on chest xray 2015 0 02/14/2017 documented as of this encounter (statuses as of 12/24/2022) [facility] of Past illness Narrative* Problem Noted Date Resolved Date Chronic post-operative pain 02/18/201807/01 Dysuria 03/27/2016 02/14/2017 Abnormal finding on chest xray 2015 0 02/14/2017 documented as of this encounter (statuses as of 01/01/2023) [facility] of Past illness Narrative* Problem Noted Date Diagnosed Date Resolved Date Chronic post-operative pain 02/18/2018 07/23/2018 Dysuria 03/27/2016 02/14/2017 Abnormal finding on chest xray 2015 02/14/2017 documented as of this encounter (statuses as of 04/08/2023) [facility] of Past illness Narrative* Problem Noted Date Diagnosed Date Resolved Date Chronic post-operative pain 02/18/2018 07/23/2018 Dysuria 03/27/2016 02/14/2017 Abnormal finding on chest xray 2015 02/14/2017 documented as of this encounter (statuses as of 06/13/2023) [facility] of Past illness Narrative* Problem Noted Date Diagnosed Date Resolved Date Chronic post-operative pain 02/18/2018 07/23/2018 Dysuria 03/27/2016 02/14/2017 Abnormal finding on chest xray 2015 02/14/2017 documented as of this encounter (statuses as of 01/02/2024) [facility] CenterEvaluation noteThere may be information available, but it has not been provided by the sender.[facility] Work Phone: Evaluation note* Diagnosis Onset Date Resolution Status [facility] [facility] Work Phone: Evaluation note* Diagnosis Hypothyroidism, unspecified type- Primary Vitamin D deficiency Unspecified vitamin D deficiency Gastroesophageal reflux disease without esophagitis Esophageal reflux Numbness and tingling of both lower extremities Extremity numbness Disturbance of skin sensation Hyperlipidemia LDL goal <100 Other and unspecified hyperlipidemia Acute pain of left knee documented [facility] [place] [facility]* Diagnosis Hyperlipidemia LDL goal <100- Primary Other and unspecified hyperlipidemia [facility] [place] [facility]* Diagnosis Benign essential tremor Essential and other specified forms of tremor documented in this encounter [facility] note* Diagnosis Onset Date Resolution Status Encounter for routine gynecological examination noneactive [facility] Work Phone: Evaluation note* Diagnosis Epigastric pain- Primary Abdominal pain, epigastric Nausea Nausea alone Chronic nausea Nausea alone Chronic constipation Unspecified constipation Gastroesophageal reflux disease without esophagitis Esophageal reflux documented in this [facility] [place] [facility]* Diagnosis Onset Date Resolution Status GERD (gastroesophageal reflux disease) chronic IBS (irritable bowel syndrome) chronic [facility] Work Phone: Evaluation note* Diagnosis Onset Date Resolution Status GERD (gastroesophageal reflux disease) chronic IBS (irritable bowel syndrome) chronic Constipation acute Fatty liver acute P-ANCA titer positive acute GERD (gastroesophageal reflux disease) chronic [facility] Work Phone: Evaluation note* Diagnosis Polyneuropathy- Primary Unspecified hereditary and [...] lumbosacral intervertebral disc documented in this encounter [facility] [place] [facility]* Diagnosis Onset Date Resolution Status Dysuria acute NAFLD (nonalcoholic fatty liver disease) [facility] Work Phone: Evaluation note* Diagnosis Polyneuropathy- Primary Unspecified hereditary and [...] legs syndrome (RLS) documented in this encounter [facility] [place] [facility]* Diagnosis Onset Date Resolution Status Dysuria acute NAFLD (nonalcoholic fatty liver disease) chronic Essential hypertension acute [facility] Work Phone: Evaluation note* Diagnosis Onset Date Resolution Status Acute pharyngitis acute [facility] Work Phone: Evaluation note* Diagnosis Onset Date Resolution Status Acute pharyngitis acute Epigastric abdominal pain ac lorena [facility] Work Phone: Evaluation note* Diagnosis Onset Date Resolution Status Epigastric abdominal pain ch ronic Sinus infection acute URI (upper respiratory infection) acute Epigastric abdominal pain ch ronic GERD (gastroesophageal reflux disease) chronic IBS (irritable bowel syndrome) chronic NAFLD (nonalcoholic fatty liver disease) chronic [facility] Work Phone: Evaluation note* Diagnosis Onset Date Resolution Status Epigastric abdominal pain ch ronic Sinus infection acute URI (upper respiratory infection) acute Epigastric abdominal pain ch ronic GERD (gastroesophageal reflux disease) chronic IBS (irritable bowel syndrome) chronic NAFLD (nonalcoholic fatty liver disease) chronic Bug bite without infection a cute [facility] Work Phone: Evaluation note* Diagnosis Essential tremor Essential and other specified forms of tremor RLS (restless legs syndrome) Restless legs syndrome (RLS) documented in this encounter [facility] [place] [facility]* Diagnosis Benign neoplasm of colon- Primary Diverticulitis Diverticulitis of colon (without mention of hemorrhage) Acute pain of left knee documented [facility] this [facility]* Diagnosis Benign neoplasm of colon- Primary Diverticulitis Diverticulitis of colon (without mention of hemorrhage) Acute constipation Unspecified constipation documented [facility] this encounter [facility]* Diagnosis Benign neoplasm of colon- Primary Diverticulitis Diverticulitis of colon (without mention of hemorrhage) Acute cough- Primary Influenza A Influenza with other respiratory manifestations documented in this encounter [facility] [place] [facility]* Diagnosis Benign neoplasm of colon- Primary Diverticulitis Diverticulitis of colon (without mention of hemorrhage) Acute cough documented in this encounter [facility]ructions* Instruction Description Start Date Completed [facility] Work Phone: Reason for referral (narrative)* Diagnostic Procedure Only (Urgent) - Closed Specialty Diagnoses / Procedures Referred By Contac t Referred To Contact XR IMAGING Diagnoses Acute pain of left knee Procedures XR KNEE GENERAL 4V AP BOTH/PA BOTH/LAT/MERC LEFT RADIOLOGIC EXAM KNEE COMPLETE 4/MORE VIEWS Rosy Donis APRN.AUDIO VISUAL EQUIPMENT RENTAL CLERK [address] [place] [address] [place] [address] Referral ID Status Reason Start Date Expiration Date V isits Requested Visits Authorized [id number] Closed Auto-Generate d Referral 01/10/2022 02/09/2023 1 1 [facility] CenterReason for referral (narrative)No reason for referral information availableWSamaritan [facility] Work Phone: Reason for visit Narrative* Diagnostic Procedure Only (Urgent) - Closed Specialty Diagnoses / Procedures Referred By Contac t Referred To Contact XR IMAGING Diagnoses Acute pain of left knee Procedures XR KNEE GENERAL 4V AP BOTH/PA BOTH/LAT/MERC LEFT RADIOLOGIC EXAM KNEE COMPLETE 4/MORE VIEWS Rosy Donis APRN.AUDIO VISUAL EQUIPMENT RENTAL CLERK [address] [place] [address] [place] [address] Referral ID Status Reason Start Date Expiration Date V isits Requested Visits Authorized [id number] Closed Auto-Generate d Referral 01/10/2022 02/09/2023 1 1 [facility] Summary Purpose Family History No Family History Records FoundUnknown Family Member Name Dates Details Family history of colonic po lyps: Father(V18.51, Z83.71) Status:Active Unknown Family Member Name Dates Details Family history of colonic po lyps: Father(V18.51, Z83.71) Status:Active Relationship Condition Age at Onset Recorded Date/T gisel father Cardiac disease Unknown mother Cardiac disease Unknown Hypertension Unknown Disorder of thyroid Unknown Relationship Condition Age at Onset Recorded Date/T gisel Not Specified Irritable bowel syndrome Unknown father Cardiac disease Unknown mother Cardiac disease Unknown Hypertension Unknown Disorder of thyroid Unknown Relationship Condition Age at Onset Recorded Date/T gisel Not Specified Irritable bowel syndrome Unknown father Cardiac disease Unknown mother Cardiac disease Unknown Hypertension Unknown Disorder of thyroid Unknown Cerebrovascular accident (CVA) Unknown brother Cardiac disease Unknown Advance Directives No Advanced Directives Records FoundDocuments on File Type Date Recorded Patient Cottage Parent Expl anation Advance Directive(s) 05/30/2020 11:21 AM Advance Directive(s) 05/16/2020 8:58 AM Advance Directive(s) 05/22/2019 9:22 AM Advance Directive(s) 05/14/2019 3:20 PM Advance Directive(s) 02/08/2016 7:36 AM Advance Directive Response Recorded Date/ Time Living Will No March 27, 2021 10:46am Power of Hotel Lobby Concierge No March 27 10:46am Documents on File Type Date Recorded Patient Cottage Parent Expl anation Advance Directive(s) 05/30/2020 11:21 AM Advance Directive(s) 05/16/2020 8:58 AM Advance Directive(s) 05/22/2019 9:22 AM Advance Directive(s) 05/14/2019 3:20 PM Advance Directive(s) 02/08/2016 7:36 AM Advance Directive Response Recorded Date/ Time Living Will No March 27, 2021 9:46am Power of Hotel Lobby Concierge No March 27 9:46am Advance Directive Response Recorded Date/ Time Living Will No March 12, 2023 6:09am Power of Hotel Lobby Concierge No March 12 6:09am Advance Directive Response Recorded Date/ Time Living Will No March 12, 2023 5:09am Power of Hotel Lobby Concierge No March 12 5:09am Advance Directive Response Recorded Date/ Time Living Will No March 12, 2023 6:09am Power of Hotel Lobby Concierge No March 12 6:09am Living Will No June 11, 2024 9:40am Power of Hotel Lobby Concierge No May 9:40am Advance Directive Response Recorded Date/ Time Living Will No March 12, 2023 6:09am Do you have a Healthcare Power of Hotel Lobby Concierge? No March 12, 2023 6:09am Living Will No June 11, 2024 9:40am Do you have a Healthcare Power of Hotel Lobby Concierge? No June 11, 2024 9:40am Advance Directive Response Recorded Date/ Time Living Will No June 11, 2024 9:40am Do you have a Healthcare Power of Hotel Lobby Concierge? No June 11, 2024 9:40am Chief Complaint Chief Complaint Description Start Date left knee pain Preliminary chief co mplaint data, not yet signed by the author as of Chief Complaint and Reason for Visit Chief Complaint SKIN COUGH/SORE THROAT/COVID TEST Disorders of unspecified acoustic nerve Reason for Visit COVID-19 Chief Complaint Disorders of unspeci fied acoustic nerve SCREENING Annual ([employer]) ACUTE MEDIAL MENISCUS TEAR LEFT KNEE. RX HERE. Reason for Visit Encounter for routin e gynecological examination Chief Complaint SCREENING Annual ([employer]) ACUTE MEDIAL MENISCUS TEAR LEFT KNEE. RX HERE. Reason for Visit Encounter for routin e gynecological examination Chief Complaint ACUTE MEDIAL MENISCU S TEAR LEFT KNEE. RX HERE. STOMACH PAIN E ORDER Reason for Visit GERD (gastroesophage al reflux disease) IBS (irritable bowel syndrome) Chief Complaint ACUTE MEDIAL MENISCU S TEAR LEFT KNEE. RX HERE. STOMACH PAIN E ORDER E-ORDER GERD Reason for Visit GERD (gastroesophage al reflux disease) IBS (irritable bowel syndrome) Chief Complaint STOMACH PAIN E ORDER E-ORDER GERD Reason for Visit GERD (gastroesophage al reflux disease) IBS (irritable bowel syndrome) Chief Complaint STOMACH PAIN E ORDER E-ORDER GERD 6 wk FU EORDER Reason for Visit GERD (gastroesophage al reflux disease) IBS (irritable bowel syndrome) Constipation Fatty liver P-ANCA titer positive GERD (gastroesophageal reflux disease) Chief Complaint STOMACH PAIN E ORDER E-ORDER GERD 6 wk FU EORDER RUQ PAIN E ORDER Reason for Visit GERD (gastroesophage al reflux disease) IBS (irritable bowel syndrome) Constipation Fatty liver P-ANCA titer positive GERD (gastroesophageal reflux disease) Chief Complaint [employer] APPRENTICE SCREENING FATTY LIVER CONCERN FOR UTI Dysuria FU BURSITIS R HIP PX HERE Reason for Visit Dysuria NAFLD (nonalcoholic fatty liver disease) Chief Complaint SCREENING FATTY LIVER CONCERN FOR UTI Dysuria FU BURSITIS R HIP PX HERE EST HYPERTENSION Amb Documentation Reason for Visit Dysuria NAFLD (nonalcoholic fatty liver disease) Essential hypertension Chief Complaint SORE THROAT Reason for Visit Acute pharyngitis Chief Complaint SORE THROAT EGD FOR ULCERS AND POSSIBLE HIATAL HERNIA STRICTURE OF ARTERY Reason for Visit Acute pharyngitis Epigastric abdominal pain Chief Complaint EGD FOR ULCERS AND P OSSIBLE HIATAL HERNIA STRICTURE OF ARTERY CONCERN FOR SINUS INFECTION STOMACH PAIN E ORDERS Reason for Visit Epigastric abdominal pain Sinus infection URI (upper respiratory infection) Epigastric abdominal pain GERD (gastroesophageal reflux disease) IBS (irritable bowel syndrome) NAFLD (nonalcoholic fatty liver disease) Chief Complaint EGD FOR ULCERS AND P OSSIBLE HIATAL HERNIA STRICTURE OF ARTERY CONCERN FOR SINUS INFECTION STOMACH PAIN E ORDERS BUG BITES Unspecified abdominal pain Reason for Visit Epigastric abdominal pain Sinus infection URI (upper respiratory infection) Epigastric abdominal pain GERD (gastroesophageal reflux disease) IBS (irritable bowel syndrome) NAFLD (nonalcoholic fatty liver disease) Bug bite without infection Chief Complaint Admit Date EAR PAIN September 09, 2024 11:51am 6 M FU October 23, 2024 9 :54am INT LABS December 04, 2024 7:34 am 6 M FU December 08, 2024 1:4 3pm Reason for Visit Admit Date Acute otitis externa of right ear Decemb er 2023 11:51am URI (upper respiratory infection) Decemb er 2023 11:51am Constipation October 23, 2024 9 :54am Weight loss October 23, 2024 9 :54am GERD (gastroesophageal reflux disease) J anuary 2024 9:54am Elevated coronary artery calcium score [facility] 2024 1:43pm Essential hypertension December 08, 2024 1:43pm Chief Complaint Admit Date EAR PAIN September 09, 2024 11:51am 6 M FU October 23, 2024 9 :54am INT LABS December 04, 2024 7:34 am 6 M FU December 08, 2024 1:4 3pm COUGH, SORE THROAT December 17, 2024 4:3 6pm Reason for Visit Admit Date Acute otitis externa of right ear Decemb er 2023 11:51am URI (upper respiratory infection) Decemb er 2023 11:51am Constipation October 23, 2024 9 :54am Weight loss October 23, 2024 9 :54am GERD (gastroesophageal reflux disease) J anuary 2024 9:54am Elevated coronary artery calcium score [facility] arch 2024 1:43pm Essential hypertension December 08, 2024 1:43pm Acute bronchitis December 17, 2024 4:3 6pm Chief Complaint Admit Date INT LABS December 04, 2024 7:34 am 6 M FU December 08, 2024 1:4 3pm COUGH, SORE THROAT December 17, 2024 4:3 6pm screening for breast cancer February 26 10:00am Reason for Visit Admit Date Elevated coronary artery calcium score M arch 2024 1:43pm Essential hypertension December 08, 2024 1:43pm Acute bronchitis December 17, 2024 4:3 6pm Chief Complaint Admit Date COUGH, SORE THROAT December 17, 2024 4:3 6pm screening for breast cancer February 26 10:00am STRICTURE OF ARTERY , PAD April 05, 2025 10:50am Reason for Visit Admit Date Acute bronchitis December 17, 2024 4:3 6pm Chief Complaint Admit Date COUGH, SORE THROAT December 17, 2024 4:3 6pm screening for breast cancer February 26 10:00am STRICTURE OF ARTERY , PAD April 05, 2025 10:50am 6 M FU April 13, 2025 9:25 am Reason for Visit Admit Date Acute bronchitis December 17, 2024 4:3 6pm Fatty liver April 13, 2025 9:25 am Reason for Referral Specialty Diagnoses / Procedures Referred By Contac t Referred To Contact Gastroenterology Diagnoses Epigastric pain Nausea Chronic nausea Chronic constipation Gastroesophageal reflux disease without esophagitis Procedures CONSULT TO GASTROENTEROLOGY OFFICE/OUTPATIENT [facility] 60-74 MINUTES Parul Cummings, MARC.HYDRODYNAMICIST [address] [place] [address] Referral ID Status Reason Start Date Expiration Date Visits Requested Visits Authorized [id number] Authorized PCP Requested Referral 04/19/2022 04/19/2023 1 1 Specialty Diagnoses / Procedures Referred By Contac t Referred To Contact Diagnoses Essential tremor RLS (restless legs syndrome) Procedures PROVIDER ORDERED FOLLOW UP OFFICE/OUTPATIENT [facility] 60 MINUTES Cash Lama MD [address] [place] [id number] Referral ID Status Reason Start Date Expiration Date Visits Requested Visits Authorized [id number] Authorized PCP Requested Referral 04/01/2024 06/30/2024 1 1 Additional Source Comments INFORMATION SOURCE (unrecogn ized section and content) DATE CREATED AUTHOR 03/19/2018 [facility] DATE CREATED AUTHOR AUTHOR'S ORGANIZ ATION 05/31/2021 [facility] DATE CREATED AUTHOR AUTHOR'S ORGANIZ ATION 06/15/2023 [facility] DATE CREATED AUTHOR AUTHOR'S ORGANIZ ATION 12/21/2024 [facility] DATE CREATED AUTHOR AUTHOR'S ORGANIZ ATION 06/16/2025 [facility] Source Comments (unrecognize d section and content) In the event this informatio n is protected by the Federal Confidentiality of Alcohol and Drug Abuse Patient Records regulations: The Federal rules restrict any use of the information to criminally investigate or prosecute any alcohol or drug abuse patient.[facility] Center[facility] the event this information is protected by the Federal Confidentiality of Alcohol and Drug Abuse Patient Records regulations: The Federal rules restrict any use of the information to criminally investigate or prosecute any alcohol or drug abuse patient.[facility] Center[facility] the event this information is protected by the Federal Confidentiality of Alcohol and Drug Abuse Patient Records regulations: The Federal rules restrict any use of the information to criminally investigate or prosecute any alcohol or drug abuse patient.[facility] CenterIn the event this information is protected by the Federal Confidentiality of Alcohol and Drug Abuse Patient Records regulations: The Federal rules restrict any use of the information to criminally investigate or prosecute any alcohol or drug abuse patient.[facility] CenterIn the event this information is protected by the Federal Confidentiality of Alcohol and Drug Abuse Patient Records regulations: The Federal rules restrict any use of the information to criminally investigate or prosecute any alcohol or drug abuse patient.[facility] Center[facility] the event this information is protected by the Federal Confidentiality of Alcohol and Drug Abuse Patient Records regulations: The Federal rules restrict any use of the information to criminally investigate or prosecute any alcohol or drug abuse patient.[facility] CenterIn the event this information is protected by the Federal Confidentiality of Alcohol and Drug Abuse Patient Records regulations: The Federal rules restrict any use of the information to criminally investigate or prosecute any alcohol or drug abuse patient.[facility] CenterIn the event this information is protected by the Federal Confidentiality of Alcohol and Drug Abuse Patient Records regulations: The Federal rules restrict any use of the information to criminally investigate or prosecute any alcohol or drug abuse patient.[facility] CenterIn the event this information is protected by the Federal Confidentiality of Alcohol and Drug Abuse Patient Records regulations: The Federal rules restrict any use of the information to criminally investigate or prosecute any alcohol or drug abuse patient.[facility] CenterIn the event this information is protected by the Federal Confidentiality of Alcohol and Drug Abuse Patient Records regulations: The Federal rules restrict any use of the information to criminally investigate or prosecute any alcohol or drug abuse patient.[facility] CenterIn the event this information is protected by the Federal Confidentiality of Alcohol and Drug Abuse Patient Records regulations: The Federal rules restrict any use of the information to criminally investigate or prosecute any alcohol or drug abuse patient.[facility] CenterIn the event this information is protected by the Federal Confidentiality of Alcohol and Drug Abuse Patient Records regulations: The Federal rules restrict any use of the information to criminally investigate or prosecute any alcohol or drug abuse patient.[facility] CenterIn the event this information is protected by the Federal Confidentiality of Alcohol and Drug Abuse Patient Records regulations: The Federal rules restrict any use of the information to criminally investigate or prosecute any alcohol or drug abuse patient.[facility] CenterIn the event this information is protected by the Federal Confidentiality of Alcohol and Drug Abuse Patient Records regulations: The Federal rules restrict any use of the information to criminally investigate or prosecute any alcohol or drug abuse patient.[facility] CenterIn the event this information is protected by the Federal Confidentiality of Alcohol and Drug Abuse Patient Records regulations: The Federal rules restrict any use of the information to criminally investigate or prosecute any alcohol or drug abuse patient.[facility] CenterIn the event this information is protected by the Federal Confidentiality of Alcohol and Drug Abuse Patient Records regulations: The Federal rules restrict any use of the information to criminally investigate or prosecute any alcohol or drug abuse patient.[facility] CenterIn the event this information is protected by the Federal Confidentiality of Alcohol and Drug Abuse Patient Records regulations: The Federal rules restrict any use of the information to criminally investigate or prosecute any alcohol or drug abuse patient.[facility] CenterIn the event this information is protected by the Federal Confidentiality of Alcohol and Drug Abuse Patient Records regulations: The Federal rules restrict any use of the information to criminally investigate or prosecute any alcohol or drug abuse patient.[facility] CenterIn the event this information is protected by the Federal Confidentiality of Alcohol and Drug Abuse Patient Records regulations: The Federal rules restrict any use of the information to criminally investigate or prosecute any alcohol or drug abuse patient.[facility] CenterIn the event this information is protected by the Federal Confidentiality of Alcohol and Drug Abuse Patient Records regulations: The Federal rules restrict any use of the information to criminally investigate or prosecute any alcohol or drug abuse patient.[facility] CenterIn the event this information is protected by the Federal Confidentiality of Alcohol and Drug Abuse Patient Records regulations: The Federal rules restrict any use of the information to criminally investigate or prosecute any alcohol or drug abuse patient.[facility] Reason for Visit (unrecogniz ed section and content) Reason Comments Results, Lab Reason Comments Release Of Medical Records Reason [...] Comments Population Health Navigation Outreach 11/06/2022 [facility] Reason Comments New Patient Restless leg syndrom e. Tingling in both feet. Also feeling tingling sensation in right hand. Neuropathy Reason Onset Date Comments Population Health Navigation Outreach 01/01/2023 [facility] GAPS Reason Comments Tremor Reason Comments Received Outside Medical Records Reason Onset Date Comments Refill Request 01/01/2024 Reason Comments Follow Up Specialty Diagnoses / Procedures Referred By Nicki shin Referred To Contact Diagnoses Essential tremor RLS (restless legs syndrome) Procedures PROVIDER ORDERED FOLLOW UP Cash Lama MD [address] [address] Referral ID Status Reason Start Date Expiration Date V isits Requested Visits Authorized [id number] Closed PCP Requested Referral 08/01/2023 10/30/2023 1 1 Reason Comments requesting CXR Care Teams (unrecognized sec tion and content) Emr Implementation Specialist Relationship Specialty Start Date End Date Genevieve Graham MD [address] [place] [address] PCP - General Internal Medicine 07/11/21 Emr Implementation Specialist Relationship Specialty Start Date End Date Genevieve Graham MD [address] [place] [id number] PCP - General Internal Medicine 07/11/21 Emr Implementation Specialist Relationship Specialty Start Date End Date Genevieve Graham MD [facility] [place] [address] PCP - General Internal Medicine 07/11/21 Emr Implementation Specialist Relationship Specialty Start Date End Date Genevieve Graham MD [facility] [place] [address] PCP - General Internal Medicine 07/11/21 Emr Implementation Specialist Relationship Specialty Start Date End Date Genevieve Graham MD [address] [place] [id number] PCP - General Internal Medicine 07/11/21 Emr Implementation Specialist Relationship Specialty Start Date End Date Genevieve Graham MD [address] [place] [id number] PCP - General Internal Medicine 07/11/21 Emr Implementation Specialist Relationship Specialty Start Date End Date Genevieve Graham MD [address] [place] [address] PCP - General Internal Medicine 07/11/21 Team Status: Active Member Role Status Dates Dr. Nahed Faust III, MD Family Provider Active Dr. Ash Roberts MD Primary Care Provider Active Team Status: Inactive Member Role Status Dates Dr. Genevieve Graham MD Primary Care Provider, Referr ing Provider Active Dr. Bridger Lanier DO Attending Provider Active Team Status: Inactive Member Role Status Dates Dr. Genevieve Graham MD Referring Provider Active Pearl Shepard BUDGET SPECIALIST, BUDGET SPECIALIST-C Attending Provider Active Dr. Ash Roberts MD Primary Care Provider Active Team Status: Inactive Member Role Status Dates Cash Arias DO Primary Care Provider Active Dr. Bridger Lanier , Attending Provider Active Team Status: Inactive Member Role Status Dates Cash Arias DO Primary Care Provider Active Dr. Bridger Lanier , Attending Provider, Referring Provider Active Team Status: Inactive Member Role Status Dates Dr. Ash Roberts MD Primary Care Provide r, Attending Provider, Referring Provider Active Team Status: Inactive Member Role Status Dates Dr. Ash Roberts MD Primary Care Provider Active Courtney Dillard BUDGET SPECIALIST-C Attending Provider Active Team Status: Inactive Member Role Status Dates Dr. Ash Roberts MD Primary Care Provider Active Pearl Shepard BUDGET SPECIALIST, BUDGET SPECIALIST-C Attending Provider Active Team Status: Inactive Member Role Status Dates Dr. Ash Roberts MD Primary Care Provider Active Pearl Shepard BUDGET SPECIALIST, BUDGET SPECIALIST-C Attending Provider, Referrin g Provider Active Emr Implementation Specialist Relationship Specialty Start Date End Date Genevieve Graham MD [address] [place] [address] PCP - General Internal Medicine 07/11/21 Team Status: Inactive Member Role Status Dates Dr. Ash Roberts MD Primary Care Provider, Referring P lana Active Pearl Shepard BUDGET SPECIALIST, BUDGET SPECIALIST-C Attending Provider Active Team Status: Active Member Role Status Dates Dr. Ash Roberts MD Primary Care Provider Active Dr. Ash Gutiérrez MD Attending Provider Active Team Status: Inactive Member Role Status Dates Dr. Ash Roberts MD Primary Care Provider, Referring P rovider Active Ramone REYES, PA Attending Provider Active Team Status: Active Member Role Status Dates Dr. Ash Roberts MD Primary Care Provider Active Juany Roberto BUDGET SPECIALIST, BUDGET SPECIALIST-C Attending Provider, Referring Provider Active Team Status: Active Member Role Status Dates Dr. Ash Roberts MD Primary Care Provider Active Self Referred Attending Provider Active Team Status: Active Member Role Status Dates Dr. Ash Roberts MD Primary Care Provider Active MIKI ESTRADA Attending Provider, Referring Provider A ctive Team Status: Inactive Member Role Status Dates Dr. Ash Roberts MD Primary Care Provider Active Ramone REYES, PA Attending Provider, Referring Provi subhash Active Emr Implementation Specialist Relationship Specialty Start Date End Date Nahed Faust III, MD NO FORWARDING ADDRESS PCP - General Family Medicine 02/14/23 Team Status: Active Member Role Status Dates Dr. Nahed Faust III, MD Family Provider Active Cash Arias DO Primary Care Provider Active Team Status: Inactive Member Role Status Dates Dr. Joel Islas MD Attending Provider Active Cash Arias DO Primary Care Provider, Referring Provider Active Team Status: Active Member Role Status Dates Cash Arias DO Primary Care Provider Active Dr. Joel Islas MD Attending Provider, Referring Pro vider Active Team Status: Active Member Role Status Dates Cash Arias DO Primary Care Provider Active Keiry Ramirez BUDGET SPECIALIST, BUDGET SPECIALIST-C Attending Provider Active Team Status: Inactive Member Role Status Dates Dr. Ash Roberts MD Primary Care Provider Active Juany Roberto BUDGET SPECIALIST, BUDGET SPECIALIST-C Attending Provider, Referring Provider Active Team Status: Inactive Member Role Status Dates Dr. Ash Roberts MD Primary Care Provider Active MIKI ESTRADA Attending Provider, Referring Provider A ctive Team Status: Inactive Member Role Status Dates Cash Arias DO Primary Care Provider Active Dr. Joel Islas MD Attending Provider, Referring Pro vider Active Emr Implementation Specialist Relationship Specialty Start Date End Date Nahed Faust III, MD NO FORWARDING ADDRESS PCP - General Family Medicine 02/14/23 Team Status: Active Member Role Status Dates Dr. Nahed Faust III, MD Family Provider Active Dr. Sarah Huynh MD Primary Care Provider Active Team Status: Inactive Member Role Status Dates Cash Arias DO Primary Care Provider, Referring Provider Active Ramone REYES, PA Attending Provider Active Team Status: Inactive Member Role Status Dates Dr. Sarah Huynh MD Primary Care Prov ider, Attending Provider, Referring Provider Active Team Status: Inactive Member Role Status Dates Dr. Sarah Huynh MD Primary Care Provider Active Ella Turk NP-C Attending Provider, Referring Prov ider Active Team Status: Inactive Member Role Status Dates Dr. Sarah Huynh MD Primary Care Provider, Referrin g Provider Active Dr. Juan Faust MD Attending Provider Active Team Status: Inactive Member Role Status Dates Dr. Sarah Huynh MD Primary Care Provider Active Dr. Tony Bolden MD Attending Provider, Referring Provider Active Team Status: Inactive Member Role Status Dates Dr. Sarah Huynh MD Primary Care Provider, Referrin g Provider Active Dr. Bridger Lnaier DO Attending Provider Active Team Status: Inactive Member Role Status Dates Dr. Sarah Huynh MD Primary Care Provider, Referrin g Provider Active STEVE Aguilar Attending Provider Active Team Status: Inactive Member Role Status Dates Dr. Sarah Huynh MD Primary Care Provider Active Dr. Bridger Lanier DO Attending Provider, Referring Provider Active Team Status: Inactive Member Role Status Dates Dr. Sarah Huynh MD Primary Care Provider, Referrin g Provider Active Jazzy REYES, PA Attending Provider Active Emr Implementation Specialist Relationship Specialty Start Date End Date Cash Arias DO [address] [address] PCP - General Family Medicine 07/01/23 Emr Implementation Specialist Relationship Specialty Start Date End Date Cash Arias DO [address] [facility] [address] [place] [address] PCP - General Family Medicine 07/01/23 Emr Implementation Specialist Relationship Specialty Start Date End Date Genevieve Graham MD [address] [place] [address] PCP - General Internal Medicine 07/11/21 12/31/22 Emr Implementation Specialist Relationship Specialty Start Date End Date Nahed Faust III, MD NO FORWARDING ADDRESS PCP - General 03/20/01 07/10/21 Emr Implementation Specialist Relationship Specialty Start Date End Date Cash Arias DO PCP - General Family Medicine 07/01/23 Emr Implementation Specialist Relationship Specialty Start Date End Date Cash Arias DO PCP - General Family Medicine 07/01/23 Team Status: Inactive Member Role Status Dates Dr. Sarah Huynh MD Primary Care Provider Active Start: September 09, 2024 End: September 09, 2024 Dr. Sarah Huynh MD Referring Provider Active Start: September 09, 2024 End: September 09, 2024 Gus REYES PA Attending Provider Active Start: September 09, 2024 End: September 09, 2024 Team Status: Inactive Member Role Status Dates Dr. Sarah Huynh MD Primary Care Provider Active Start: October 23, 2024 End: October 23, 2024 Dr. Sarah Huynh MD Referring Provider Active Start: October 23, 2024 End: October 23, 2024 ERIC Long Attending Provider Active Start: October 23, 2024 End: October 23, 2024 Team Status: Inactive Member Role Status Dates Dr. Sarah Huynh MD Primary Care Provider Active Start: October 23, 2024 End: October 23, 2024 ERIC Long Attending Provider Active Start: October 23, 2024 End: October 23, 2024 ERIC Long Referring Provider Active Start: October 23, 2024 End: October 23, 2024 Team Status: Inactive Member Role Status Dates Dr. Sarah Huynh MD Primary Care Provider Active Start: December 04, 2024 End: December 04, 2024 Jazzy REYES PA Attending Provider Active Start: December 04, 2024 End: December 04, 2024 Jazzy REYES PA Referring Provider Active Start: December 04, 2024 End: December 04, 2024 Team Status: Inactive Member Role Status Dates Dr. Sarah Huynh MD Primary Care Provider Active Start: December 08, 2024 End: December 08, 2024 Dr. Sarah Huynh MD Referring Provider Active Start: December 08, 2024 End: December 08, 2024 aJzzy REYES PA Attending Provider Active Start: December 08, 2024 End: December 08, 2024 Team Status: Active Member Role Status Dates Dr. Sarah Huynh MD Primary Care Provider Active Start: December 10, 2024 Dr. Sarah Huynh MD Attending Provider Active Start: December 10, 2024 Team Status: Inactive Member Role Status Dates Dr. Sarah Huynh MD Primary Care Provider Active Start: December 10, 2024 End: December 10, 2024 Dr. Sarah Huynh MD Attending Provider Active Start: December 10, 2024 End: December 10, 2024 Team Status: Inactive Member Role Status Dates Dr. Sarah Huynh MD Primary Care Provider Active Start: December 17, 2024 End: December 17, 2024 Dr. Sarah Huynh MD Referring Provider Active Start: December 17, 2024 End: December 17, 2024 Ramone REYES PA Attending Provider Active Sta rt: December 17, 2024 End: December 17, 2024 Team Status: Active Member Role Status Dates Dr. Sarah uHynh MD Primary Care Provider Active Team Status: Inactive Member Role Status Dates Dr. Sarah Huynh MD Primary Care Provider Active Start: February 26, 2025 End: February 26, 2025 Juany Roberto BUDGET SPECIALIST, BUDGET SPECIALIST-C Attending Provider Active Start: February 26, 2025 End: February 26, 2025 Juany Roberto BUDGET SPECIALIST, BUDGET SPECIALIST-C Referring Provider Active Start: February 26, 2025 End: February 26, 2025 Team Status: Active Member Role/Relationship Status Dates Dr. Sarah Huynh MD Primary Care Provider Active Team Status: Inactive Member Role/Relationship Status Dates Dr. Sarah Huynh MD Primary Care Provider Active Start: December 10, 2024 End: December 10, 2024 Dr. Saarh Huynh MD Attending Provider Active Start: December 10, 2024 End: December 10, 2024 Team Status: Inactive Member Role/Relationship Status Dates Dr. Sarah Huynh MD Primary Care Provider Active Start: December 17, 2024 End: December 17, 2024 Dr. Sarah Huynh MD Referring Provider Active Start: December 17, 2024 End: December 17, 2024 Ramone REYES PA Attending Provider Active Sta rt: December 17, 2024 End: December 17, 2024 Team Status: Inactive Member Role/Relationship Status Dates Dr. Sarah Huynh MD Primary Care Provider Active Start: February 26, 2025 End: February 26, 2025 Juany Roberto BUDGET SPECIALIST, BUDGET SPECIALIST-C Attending Provider Active Start: February 26, 2025 End: February 26, 2025 Juany Roberto BUDGET SPECIALIST, BUDGET SPECIALIST-C Referring Provider Active Start: February 26, 2025 End: February 26, 2025 Team Status: Inactive Member Role/Relationship Status Dates Dr. Sarah Huynh MD Primary Care Provider Active Start: April 05, 2025 End: April 05, 2025 Dr. Tony Bolden MD Attending Provider Active Start: April 05, 2025 End: April 05, 2025 Dr. Tony Bolden MD Referring Provider Active Start: April 05, 2025 End: April 05, 2025 Team Status: Inactive Member Role/Relationship Status Dates Dr. Sarah Huynh MD Primary Care Provider Active Start: December 17, 2024 End: December 17, 2024 Dr. Sarah Huynh MD Referring Provider Active Start: December 17, 2024 End: December 17, 2024 Ramone REYES PA Attending Provider Active Sta rt: December 17, 2024 End: December 17, 2024 Team Status: Inactive Member Role/Relationship Status Dates Dr. Sarah Huynh MD Primary Care Provider Active Start: February 26, 2025 End: February 26, 2025 Juany Roberto BUDGET SPECIALIST, BUDGET SPECIALIST-C Attending Provider Active Start: February 26, 2025 End: February 26, 2025 Juany Roberto BUDGET SPECIALIST, BUDGET SPECIALIST-C Referring Provider Active Start: February 26, 2025 End: February 26, 2025 Team Status: Inactive Member Role/Relationship Status Dates Dr. Sarah Huynh MD Primary Care Provider Active Start: April 05, 2025 End: April 05, 2025 Dr. Tony Bolden MD Attending Provider Active Start: April 05, 2025 End: April 05, 2025 Dr. Tony Bolden MD Referring Provider Active Start: April 05, 2025 End: April 05, 2025 Team Status: Inactive Member Role/Relationship Status Dates Dr. Sarah Huynh MD Primary Care Provider Active Start: April 13, 2025 End: April 13, 2025 Dr. Sarah Huynh MD Referring Provider Active Start: April 13, 2025 End: April 13, 2025 ERIC Long Attending Provider Active Start: April 13, 2025 End: April 13, 2025 Goals (unrecognized section and content) Goals may be documented in a n alternate sectionGoals may be documented in an alternate sectionGoals may be documented in an alternate sectionGoals may be documented in an alternate sectionGoals may be documented in an alternate sectionGoals may be documented in an alternate sectionGoals may be documented in an alternate sectionGoals may be documented in an alternate sectionGoals may be documented in an alternate sectionGoals may be documented in an alternate sectionGoals may be documented in an alternate sectionGoals may be documented in an alternate sectionGoals may be documented in an alternate sectionGoals may be documented in an alternate sectionGoals may be documented in an alternate sectionGoals may be documented in an alternate sectionGoals may be documented in an alternate sectionGoals may be documented in an alternate sectionGoals may be documented in an alternate sectionGoals may be documented in an alternate sectionGoals may be documented in an alternate sectionGoals may be documented in an alternate section FOR RECORDS PERTAINING TO PATIENTS WHO ARE [...] BE BASED ON THE PRIMARY CLINICAL RECORDS. [facility]. provides no warranty or guarantee of the accuracy or completeness of information in this document.
[2025-06-17] MEDS: Lactated Ringers 1,000 ML 15 ML IV (06:06)
--- NOTE | 2025-06-17 06:19 | PCM.PRE.AN2 ---
ASA Classification* ASA Classification ASA Classification: 2 Assessment & Plan Anesthesia* Anesthesia Assessment Anesthesia Assessment: Discussed sedation and/or anesthesia options, risks, benefits, and alternatives with patient/parents/legal guardian/POA. Questions invited. The patient/parents/legal guardian/POA seems to understand and agrees to proceed with anesthesia plan. Reviewed the physical assessment, medical history, allergy history and patient home medications list prior to surgery/procedure/anesthetic and documented any changes. Performed airway and anesthesia risk assessments. Anesthesia Type Anesthesia Type: MAC History Source History Obtained from:: Patient and Chart Anesthesia Focused Assessment* Temperature: 97.5 F Pulse Rate: 64 Blood Pressure: 132/69 Respiratory Rate: 18 Pulse Ox: 97 Oxygen Delivery Method: Room Air Airway Assessment Mouth opens: >3 cm Mallampati Score: II Teeth Condition: Intact Neck Range of motion (ROM): Full ROM Labs Anesthesia Preop lab: CBC WBC, (4.4-11.0) 5.5 K/mm3 10/23/24, 10:44 RBC, (4.2-5.4) 5.14 M/mm3 10/23/24, 10:44 Hgb, (12.0-15.0) 15.6 g/dL H 10/23/24, 10:44 Hct, (37-47) 47.0 % 10/23/24, 10:44 Plt Count, (150-450) 116 K/mm3 L 10/23/24, 10:44 CHEMISTRY Potassium, (3.5-5.1) 3.6 mmol/L 10/23/24, 10:44 Sodium, (136-145) 142 mmol/L 10/23/24, 10:44 Magnesium, (1.6-2.6) 2.2 mg/dL 10/23/24, 10:44 BUN, (7-18) 21 mg/dL H 10/23/24, 10:44 Creatinine, (0.55-1.02) 0.92 mg/dL 10/23/24, 10:44 Glucose, (74-106) 111 mg/dL H 10/23/24, 10:44 TSH, (0.358-3.740) 1.350 uIU/mL 10/23/24, 10:44 COAG PT, (11.7-14.9) 13.1 SECONDS 09/10/22, 10:49 Pre-Assessment Diagnosis/Proposed Procedure Planned Operative Procedure(s): COLONOSCOPY Anesthesia History 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 When Was Last Pacemaker Check QUESTION #4 FULL TEXT: You/Your Family Experience fever (hyperthermia) with Anesthesia Last Oral Intake Last Oral intake: Last Oral Intake NPO since 02:15 06/17/25 05:55 Meds taken in AM with sips of Yes 06/17/25 05:55 water? Meds patient instructed to take am of surgery PONV PONV - cone cleaner: PONV - cone cleaner Female Yes 06/14/25 10:44 HX of Motion Sickness No 06/14/25 10:44 HX of N/V After Surgery Yes 06/14/25 10:44 Non-Smoker Yes 06/14/25 10:44 Duration of Surgery greater No 06/14/25 10:44 than 60 minutes Number of Risk Factors 3 06/14/25 10:44 PONV Score Moderate Risk 06/14/25 10:44 Height & Weight Height & Weight: Anesthesia: Height & Weight Height 5 ft 4 in 06/17/25 05:55 Weight: 68.039 kg 06/17/25 05:55 Body Mass Index (BMI) 25.7 06/17/25 05:55 Respiratory Assessment Respiratory Assessment - cone cleaner: Respiratory Tract Infection Hx - cone cleaner Hx Respiratory Tract Infection No 06/14/25 10:44 STOP Sleep Apnea STOP Sleep Apnea - cone cleaner: STOP Sleep Apnea - cone cleaner Hx Hypertension No 06/14/25 10:44 Hx Sleep Apnea No 06/14/25 10:44 CPAP BIPAP Do you snore loudly (louder No 06/14/25 10:44 than talking or can be heard Do you often feel tired/ No 06/14/25 10:44 fatigued/ sleepy during daytime? Has anyone observed you stop No 06/14/25 10:44 breathing during sleep? STOP Results Negative 06/14/25 10:44 QUESTION #5 FULL TEXT : Do you snore loudly (louder than talking or can be heard through closed doors)? 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 Specify any problems Hx of Preganancy in last 3 No 06/14/25 10:44 Months Nurse Filling Out Transfusion [facility] 06/14/25 10:44 & Questions: Date: 06/14/25 06/14/25 10:44 Time: 10:50 06/14/25 10:44 Patient unable to answer at this time (ie. confused, unrespo /Reproduction History /Reproductive History - cone cleaner: /Reproductive Hx- cone cleaner Hx Now Gestational Age (in weeks): EDC: Hx Hx Para Hx Section SAB No 06/11/24 09:40 Active Medications Active Medications: Current Medications Generic Name Dose Route Start Last Admin Trade Name Freq PRN Reason Stop Dose Admin Lactated Ringer's 1,000 mls @ 15 mls/hr 06/17/25 05:45 06/17/25 06:06 IV 15 mls/hr .Q48H ROXANN Administration PFSH Medical History History of steroid therapy High cholesterol Acute otitis externa of right ear URI (upper respiratory infection) Wears glasses Post-menopausal Thyroid disease Low platelet count History of hiatal hernia Gastric reflux Non-smoker History of echocardiogram History of stress test Cardiology follow-up encounter History of irregular heartbeat Neuropathy Essential tremor RLS (restless legs syndrome) Hypothyroidism Essential hypertension Fatty liver COVID-19 UTI (urinary tract infection) Trochanteric bursitis of right hip Thrombocytopenia IBS (irritable bowel syndrome) GERD (gastroesophageal reflux disease) Esophagitis Diverticulosis Cyst of left kidney Home Medications ?Medication ?Instructions ?Recorded ?Last Taken ?Type albuterol sulfate 90 mcg/actuation 2 puff inhalation Q4H PRN Sob &/Or 10/11/17 06/14/24 History aerosol inhaler Wheezing cholecalciferol (vitamin D3) 50 4,000 unit PO QDAY 10/11/17 06/15/25 History mcg (2,000 unit) capsule levothyroxine 50 mcg tablet 88 mcg PO DAILY 06/06/18 06/17/25 03:00 History pantoprazole 40 mg tablet,delayed 40 mg PO DAILY PRN GERD 03/17/24 06/14/24 History release rosuvastatin 20 mg tablet 40 mg PO QHS 05/15/24 06/16/25 History estradiol 0.01% (0.1 mg/gram) 1 appful vaginal PRN 06/11/24 Unknown History vaginal cream ipratropium bromide 21 mcg (0.03 2 spray intranasal BID-TID PRN 12/17/24 Unknown Rx %) nasal spray postnasal drainage #30 mL ondansetron 4 mg disintegrating 4 mg PO Q8H #14 tabs 04/13/25 06/17/25 00:05 Rx tablet Allergy/AdvReac Type Severity Reaction Status Date / Time Sulfa (Sulfonamide Allergy Intermediate Other Verified 06/17/25 05:51 Antibiotics) atorvastatin (From Lipitor) Allergy Mild itching Verified 06/17/25 05:51 adhesive tape AdvReac Rash Verified 06/17/25 05:51 Family History Father Heart disease Mother Heart disease Hypertension Thyroid disorder CVA (cerebral vascular accident) Brother Heart disease Brother Heart disease Other IBS (irritable bowel syndrome) Surgical History S/P hysterectomy S/P cholecystectomy S/P hernia repair (~01/14/19) S/P appendectomy S/P colectomy Social History Smoking Status: Never smoker alcohol intake: current alcohol intake frequency: holidays/special occasions only substance use type: does not use caffeine: Yes what type of physical activity do you participate in: walking seatbelt use: always do you feel safe at home: Yes additional social history: - Luis Patient and are both retired Review of Systems (Anesthesia) ROS Narrative System reviewed and no additional complaints, except as documented.
--- NOTE | 2025-06-17 06:28 | PRE.ANES_ITS ---
Assessment & Plan Anesthesia* Anesthesia Assessment Anesthesia Assessment: Discussed sedation and/or anesthesia options, risks, benefits, and alternatives with patient/parents/legal guardian/POA. Questions invited. The patient/parents/legal guardian/POA seems to understand and agrees to proceed with anesthesia plan. Reviewed the physical assessment, medical history, allergy history and patient home medications list prior to surgery/procedure/anesthetic and documented any changes. Performed airway and anesthesia risk assessments. Anesthesia Focused Assessment* Temperature: 97.5 F Pulse Rate: 64 Blood Pressure: 132/69 Respiratory Rate: 18 Pulse Ox: 97 Labs Anesthesia Preop lab: 2 CBC WBC, (4.4-11.0) 5.5 K/mm3 10/23/24, 10:44 RBC, (4.2-5.4) 5.14 M/mm3 10/23/24, 10:44 Hgb, (12.0-15.0) 15.6 g/dL H 10/23/24, 10:44 Hct, (37-47) 47.0 % 10/23/24, 10:44 Plt Count, (150-450) 116 K/mm3 L 10/23/24, 10:44 CHEMISTRY Potassium, (3.5-5.1) 3.6 mmol/L 10/23/24, 10:44 Sodium, (136-145) 142 mmol/L 10/23/24, 10:44 Magnesium, (1.6-2.6) 2.2 mg/dL 10/23/24, 10:44 BUN, (7-18) 21 mg/dL H 10/23/24, 10:44 Creatinine, (0.55-1.02) 0.92 mg/dL 10/23/24, 10:44 Glucose, (74-106) 111 mg/dL H 10/23/24, 10:44 TSH, (0.358-3.740) 1.350 uIU/mL 10/23/24, 10:44 COAG PT, (11.7-14.9) 13.1 SECONDS 09/10/22, 10:49 Pre-Assessment Diagnosis/Proposed Procedure Planned Operative Procedure(s): COLONOSCOPY Anesthesia History 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 When Was Last Pacemaker Check QUESTION #4 FULL TEXT: You/Your Family Experience fever (hyperthermia) with Anesthesia Last Oral Intake Last Oral intake: Last Oral Intake NPO since 02:15 06/17/25 05:55 Meds taken in AM with sips of Yes 06/17/25 05:55 water? 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 Female Yes 06/14/25 10:44 HX of Motion Sickness No 06/14/25 10:44 HX of N/V After Surgery Yes 06/14/25 10:44 Non-Smoker Yes 06/14/25 10:44 Duration of Surgery greater No 06/14/25 10:44 than 60 minutes Number of Risk Factors 3 06/14/25 10:44 PONV Score Moderate Risk 06/14/25 10:44 Height & Weight Height & Weight: Anesthesia: Height & Weight Height 5 ft 4 in 06/17/25 05:55 Weight: 68.039 kg 06/17/25 05:55 Body Mass Index (BMI) 25.7 06/17/25 05:55 Respiratory Assessment Respiratory Assessment - music theory professor: Respiratory Tract Infection Hx - music theory professor Hx Respiratory Tract Infection No 06/14/25 10:44 STOP Sleep Apnea STOP Sleep Apnea - music theory professor: STOP Sleep Apnea - music theory professor Hx Hypertension No 06/14/25 10:44 Hx Sleep Apnea No 06/14/25 10:44 CPAP BIPAP Do you snore loudly (louder No 06/14/25 10:44 than talking or can be heard Do you often feel tired/ No 06/14/25 10:44 fatigued/ sleepy during daytime? Has anyone observed you stop No 06/14/25 10:44 breathing during sleep? STOP Results Negative 06/14/25 10:44 QUESTION #5 FULL TEXT : Do you snore loudly (louder than talking or can be heard through closed doors)? 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 Specify any problems Hx of Preganancy in last 3 No 06/14/25 10:44 Months Nurse Filling Out Transfusion [facility] 06/14/25 10:44 & Questions: Date: 06/14/25 06/14/25 10:44 Time: 10:50 06/14/25 10:44 Patient unable to answer at this time (ie. 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 professor Hx Now Gestational Age (in weeks): EDC: Hx Hx Para Hx Section SAB No 06/11/24 09:40 Active Medications Active Medications: Current Medications Generic Name Dose Route Start Last Admin Trade Name Freq PRN Reason Stop Dose Admin Lactated Ringer's 1,000 mls @ 15 mls/hr 06/17/25 05:45 06/17/25 06:06 IV 15 mls/hr .Q48H ROXANN Administration PFSH Medical History History of steroid therapy High cholesterol Acute otitis externa of right ear URI (upper respiratory infection) Wears glasses Post-menopausal Thyroid disease Low platelet count History of hiatal hernia Gastric reflux Non-smoker History of echocardiogram History of stress test Cardiology follow-up encounter History of irregular heartbeat Neuropathy Essential tremor RLS (restless legs syndrome) Hypothyroidism Essential hypertension Fatty liver COVID-19 UTI (urinary tract infection) Trochanteric bursitis of right hip Thrombocytopenia IBS (irritable bowel syndrome) GERD (gastroesophageal reflux disease) Esophagitis Diverticulosis Cyst of left kidney Home Medications ?Medication ?Instructions ?Recorded ?Last Taken ?Type albuterol sulfate 90 mcg/actuation 2 puff inhalation Q 4H PRN Sob &/Or 10/11/17 06/14/24 History aerosol inhaler Wheezing cholecalciferol (vitamin D3) 50 4,000 unit PO QDAY 09/1606/15/25 History mcg (2,000 unit) capsule levothyroxine 50 mcg tablet 88 mcg PO DAILY 06/06/18 0 06/17/25 03:00 History pantoprazole 40 mg tablet,delayed 40 mg PO DAILY PRN G ERD 03/17/24 06/14/24 History release rosuvastatin 20 mg tablet 40 mg PO QHS 05/15/24 History estradiol 0.01% (0.1 mg/gram) 1 appful vaginal PRN 09/22 Unknown History vaginal cream ipratropium bromide 21 mcg (0.03 2 spray intranasal BI D-TID PRN 12/17/24 Unknown Rx %) nasal spray postnasal drainage #30 mL ondansetron 4 mg disintegrating 4 mg PO Q8H #14 tabs 0 04/13/25 06/17/25 00:05 Rx tablet Allergy/AdvReac Type Severity Reaction Status Date / Time Sulfa (Sulfonamide Allergy Intermediate Other Verified 06/17/25 05:51 Antibiotics) atorvastatin (From Lipitor) Allergy Mild itching Verified 06/17/25 05:51 adhesive tape AdvReac Rash Verified 06/17/25 05:51 Family History Father Heart disease Mother Heart disease Hypertension Thyroid disorder CVA (cerebral vascular accident) Brother Heart disease Brother Heart disease Other IBS (irritable bowel syndrome) Surgical History S/P hysterectomy S/P cholecystectomy S/P hernia repair (~01/14/19) S/P appendectomy S/P colectomy Social History Smoking Status: Never smoker alcohol intake: current alcohol intake frequency: holidays/special occasions only substance use type: does not use caffeine: Yes what type of physical activity do you participate in: walking seatbelt use: always do you feel safe at home: Yes additional social history: - Luis Patient and are both retired Review of Systems (Anesthesia) ROS Narrative System reviewed and no additional complaints, except as documented.
--- NOTE | 2025-06-17 06:30 | COLBX_PTH ---
PATIENT: ELIZABETH TALAVERA LOC: EN U#:[id number] AGE/SX: 75/F ROOM: RE06/17/[address]: Dr. Bridger Lanier DO : 1950 BED: DIS: 06/17/2025 SPEC #: [id number] RECD: 06/17/25 08:25 STATUS: CHRISTOS REOsmani #: [id number] JAYNE: 06/17/25 06:[address]: Bridger Lanier DEPT: SURGICAL PATHOLOGY RECD BY: Marek Santana ENTERED: 06/17/25 10:31 SP TYPE: COLON BX OT DR: Dr. Sarah Huynh MD Tissues: A - COLON BIOPSY B - Transverse colon C - SPLENIC FLEXURE Procedures: Surgery Specimen Level IV HEADER OPERATION: Colonoscopy, polypectomy PRE-OP DIAGNOSIS: Fatty liver, constipation, GERD, screening colonoscopy TISSUE SUBMITTED: A- Hepatic flexure polyp, B- Transverse polyp biopsy, C- Splenic flexure polyp biopsy MICROSCOPIC DIAGNOSIS A. Hepatic flexure, polyp, biopsy: * Sessile serrated lesion with prolapse features. B. Transverse colon, polyp, biopsy: * Tubular adenoma. C. Splenic flexure, polyp, biopsy: * Tubular adenoma. MICROSCOPIC DESCRIPTION Slides are reviewed. GROSS DESCRIPTION A. Received in fixative is one container labeled with the patient's name and designated Hepatic flexure polyp. The specimen consists of one irregular fragment of light [place] soft tissue that measures 0.1 x 0.4 x 0.2 cm. The specimen is totally submitted in one cassette. B. Received in fixative is one container labeled with the patient's name and designated Transverse polyp biopsy. The specimen consists of one irregular fragment of light [place] soft tissue that measures 0.6 cm. The specimen is totally submitted in one cassette. C. Received in fixative is one container labeled with the patient's name and designated Splenic flexure polyp biopsy. The specimen consists of three irregular fragments of light [place] soft tissue that measure 0.1 to 0.4 cm. Smallest fragment may not survive processing. The specimen is totally submitted in one cassette. [place] 06/17/2025 CPT:83697q1
--- NOTE | 2025-06-17 06:35 | PCM.HP.STD ---
HPI - General General Date of Admission: 06/17/25 Date of Service: 06/17/25 Chief Complaint: Screening colonoscopy HPI Narrative ELIZABETH TALAVERA, is a 75 F who presents for screening colonoscopy EGD/colonoscopy 05.30.20 [facility] EGD erythematous duodenopathy Colonoscopy diverticulosis Small bowel Xray 09.27.20 without acute/chronic finding Acute abd series 10.24.20 without acute/chronic finding CT abd/pel 03.27.21 hepatic steatosis; small hiatal hernia BGI established in 2021 with epigastric pain and nausea a few times per week. Biochemical 09.10.22 coag, ferritin, GGTP, AMA, ASM WNL US/elastography 09.27.22 hepatic measurement 13.1cm with fatty infiltration, stiffness 12.5kPa; increased pancreatic echogenicity; mild right hydronephrosis. Biochemical 10.04.22 ANCA profile WNL US/elastography 03.05.23 hepatic measurement 13.4cm with fatty infiltration, stiffness 6kPa; normal pancreas EGD 06.15.24; - Normal esophagus. - Medium-sized hiatal hernia. - Gastric stenosis was found at the pylorus. Biopsied. - Erythematous mucosa in the gastric body. Biopsied. - Non-bleeding duodenal diverticulum OV 1.24.25 Pt doing ok since last visit.. She has not been taking pantoprazole on a daily basis. Continues to have constipation. She has lost weight unintentionally. Start PPI daily, Trial Linzess. CBC and thyroid panel. OV 7.15.25 Pt discontinuing gabapentin and she feels this helped with her constipation. She is having a bm 2-3 times per day. Heartburn is well controlled with Pantoprazole 40 mg daily. She is due for a colonoscopy now. [facility] Medical History History of steroid therapy High cholesterol Acute otitis externa of right ear URI (upper respiratory infection) Wears glasses Post-menopausal Thyroid disease Low platelet count History of hiatal hernia Gastric reflux Non-smoker History of echocardiogram History of stress test Cardiology follow-up encounter History of irregular heartbeat Neuropathy Essential tremor RLS (restless legs syndrome) Hypothyroidism Essential hypertension Fatty liver COVID-19 UTI (urinary tract infection) Trochanteric bursitis of right hip Thrombocytopenia IBS (irritable bowel syndrome) GERD (gastroesophageal reflux disease) Esophagitis Diverticulosis Cyst of left kidney Home Medications ?Medication ?Instructions ?Recorded ?Last Taken ?Type albuterol sulfate 90 mcg/actuation 2 puff inhalation Q4H PRN Sob &/Or 10/11/17 06/14/24 History aerosol inhaler Wheezing cholecalciferol (vitamin D3) 50 4,000 unit PO QDAY 10/11/17 06/15/25 History mcg (2,000 unit) capsule levothyroxine 50 mcg tablet 88 mcg PO DAILY 06/06/18 06/17/25 03:00 History pantoprazole 40 mg tablet,delayed 40 mg PO DAILY PRN GERD 03/17/24 06/14/24 History release rosuvastatin 20 mg tablet 40 mg PO QHS 05/15/24 06/16/25 History estradiol 0.01% (0.1 mg/gram) 1 appful vaginal PRN 06/11/24 Unknown History vaginal cream ipratropium bromide 21 mcg (0.03 2 spray intranasal BID-TID PRN 12/17/24 Unknown Rx %) nasal spray postnasal drainage #30 mL ondansetron 4 mg disintegrating 4 mg PO Q8H #14 tabs 04/13/25 06/17/25 00:05 Rx tablet Allergy/AdvReac Type Severity Reaction Status Date / Time Sulfa (Sulfonamide Allergy Intermediate Other Verified 06/17/25 05:51 Antibiotics) atorvastatin (From Lipitor) Allergy Mild itching Verified 06/17/25 05:51 adhesive tape AdvReac Rash Verified 06/17/25 05:51 Family History Father Heart disease Mother Heart disease Hypertension Thyroid disorder CVA (cerebral vascular accident) Brother Heart disease Brother Heart disease Other IBS (irritable bowel syndrome) Surgical History S/P hysterectomy S/P cholecystectomy S/P hernia repair (~01/14/19) S/P appendectomy S/P colectomy Social History Smoking Status: Never smoker alcohol intake: current alcohol intake frequency: holidays/special occasions only substance use type: does not use caffeine: Yes what type of physical activity do you participate in: walking seatbelt use: always do you feel safe at home: Yes additional social history: - Luis Patient and are both retired ROS Constitutional Constitutional: Denies fatigue, fever(s), poor appetite, weight gain or weight loss Gastrointestinal Gastrointestinal: Denies belching, bloating, change in bowel habits, change in stool character, chewing difficulty, coffee ground emesis, constipation, cramping, diarrhea, dyspepsia, dysphagia, early satiety, excessive flatus, fecal incontinence, heartburn, hematemesis, hematochezia, hemorrhoids, loose stools, melena, nausea, odynophagia, rectal bleeding, tenesmus, vomiting or weight changes Vital Signs Vital Signs Vital Signs: 06/17/25 05:54 06/17/25 05:55 06/17/25 06:21 Temperature 97.5 F L 97.5 F L Temperature Source Temporal Pulse Rate 64 64 Respiratory Rate 18 18 Respiratory Pattern Normal Blood Pressure 132/69 H 132/69 H Blood Pressure Mean 90 Blood Pressure Source Monitor Blood Pressure Position Semi-Fowlers Blood Pressure Location Left Arm Pulse Ox 97 97 Oxygen Delivery Method Room Air Room Air Weight Weight: 150 lb Body Mass Index (BMI) 25.7 Physical Exam Const alert, oriented x3, no apparent distress and healthy appearing General Appearance: cooperative GI normal to inspection, nondistended, normoactive bowel sounds, soft to palpation, non-tender and non-distended Percussion: normal to percussion Rectal Exam: deferred Assessment & Plan Assessment/Plan (1) Screening for colon cancer: PLAN: Assessment and Plan Assessment and Plan (1) Fatty liver: Status: Acute Plan: Elizabeth is a 74 yo female pt with PMHx of fatty liver, constipation and GERD. She has been feeling well. She did discontinue her gabapentin which seems to have relieved her constipation. Heartburn is controlled with PPI and she will continue this. She is due for colonoscopy and will be scheduled for this today. Last elastography was in 2022 with stiffness of 6kpa. Will repeat elastography. -Continue PPI -Colonoscopy -liver elastography -f/u after procedure (2) Constipation: Status: Acute (3) GERD (gastroesophageal reflux disease): Status: Chronic Orders: Orders ABD Limited w/ Elastography Today K76.0 - Fatty (change of) liver, not elsewhere classified Medications: New ondansetron 4 mg PO Q8H 14 tabs 0RF
--- NOTE | 2025-06-17 07:16 | PCM.POST.ANE ---
Anesthesia: Postop Eval I Current Vital Signs Temperature: 97.8 F Pulse Rate: 68 Blood Pressure: 88/62 Respiratory Rate: 16 Pulse Ox: 96 Oxygen Delivery Method: Room Air Assessment Airway patent: Yes Spontaneous unlabored respirations: Yes Mental status: Awake and Calm nausea: No Vomiting: No Anesthesia Complication: No Fluid Hydration Crystalloid volume administer (ml): 300 Total IV fluid infused: 300 Progress Note Anesthesia document: Postop Eval 1 completed: Yes
--- NOTE | 2025-06-17 07:18 | OP.PROVAT_ITS ---
06/17/2025 Sarah Huynh [facility] [address] [place] [address] Re : Colonoscopy procedure for Hallie Guzman Dear Dr. Huynh This procedure was performed on May. My impressions and recommendations are as follows: Impressions : - Diverticulosis in the entire examined colon. - One 10 mm polyp at the hepatic flexure, removed with a hot snare. Resected and retrieved. - Three 8 mm polyps at the splenic flexure and in the transverse colon, removed with a jumbo cold forceps. Resected and retrieved. Recommendations : - Repeat colonoscopy in 5 years for surveillance. - Continue present medications. My findings are described in the full procedure note, which is enclosed. If I can be of further assistance, please feel free to contact me at . Sincerely, Bridger Lanier, 06/17/2025 7:17:26 AM This report has been signed electronically.
--- NOTE | 2025-06-17 07:18 | OP.COLON_ITS ---
Patient Name: Hallie Guzman Procedure Date: 06/17/2025 6:26 AM Date of : 1950 Age: 75 Procedure: Colonoscopy Indications: Screening for colorectal malignant neoplasm Providers: Bridger Lanier DO Referring MD: Sarah Huynh Medicines: Monitored Anesthesia Care Patient Profile: This is a 75 year old female. Refer to note in patient chart for documentation of history and physical. Last Colonoscopy: 5 years ago. Complications: No immediate complications. Procedure: Pre-Anesthesia Assessment: - Prior to the procedure, a History and Physical was performed, and patient medications and allergies were reviewed. The patient is competent. The risks and benefits of the procedure and the sedation options and risks were discussed with the patient. All questions were answered and informed consent was obtained. Patient identification and proposed procedure were verified by the physician in the pre-procedure area. Mental Status Examination: alert and oriented. Airway Examination: normal oropharyngeal airway and neck mobility. Respiratory Examination: clear to auscultation. CV Examination: normal. Prophylactic Antibiotics: The patient does not require prophylactic antibiotics. Prior Anticoagulants: The patient has taken no anticoagulant or antiplatelet agents except for NSAID medication. ASA Grade Assessment: II - A patient with mild systemic disease. After reviewing the risks and benefits, the patient was deemed in satisfactory condition to undergo the procedure. The anesthesia plan was to use monitored anesthesia care (MAC). Immediately prior to administration of medications, the patient was re-assessed for adequacy to receive sedatives. The heart rate, respiratory rate, oxygen saturations, blood pressure, adequacy of pulmonary ventilation, and response to care were monitored throughout the procedure. The physical status of the patient was re-assessed after the procedure. After I obtained informed consent, the scope was passed under direct vision. Throughout the procedure, the patient's blood pressure, pulse, and oxygen saturations were monitored continuously. The Colonoscope was introduced through the anus and advanced to the cecum, identified by appendiceal orifice and ileocecal valve. The colonoscopy was performed without difficulty. The patient tolerated the procedure well. The quality of the bowel preparation was adequate. The ileocecal valve, appendiceal orifice, and rectum were photographed. Scope In: 6:45:49 AM Scope Withdrawal Time 0 hours 8 minutes 10 seconds Scope Out: 7:05:29 AM Total Procedure Duration Time 0 hours 19 minutes 40 seconds Findings: The perianal and digital rectal examinations were normal. Multiple small and large-mouthed diverticula were found in the entire colon. A 10 mm polyp was found in the hepatic flexure. The polyp was sessile. The polyp was removed with a hot snare. Resection and retrieval were complete. Verification of patient identification for the specimen was done. Estimated blood loss was minimal. Three sessile polyps were found in the splenic flexure and transverse colon. The polyps were 8 mm in size. These polyps were removed with a jumbo cold forceps. Resection and retrieval were complete. Verification of patient identification for the specimen was done. Estimated blood loss was minimal. Non-bleeding internal hemorrhoids were found during retroflexion. The hemorrhoids were Grade II (internal hemorrhoids that prolapse but reduce spontaneously). Impression: - Diverticulosis in the entire examined colon. - One 10 mm polyp at the hepatic flexure, removed with a hot snare. Resected and retrieved. - Three 8 mm polyps at the splenic flexure and in the transverse colon, removed with a jumbo cold forceps. Resected and retrieved. Recommendation: - Repeat colonoscopy in 5 years for surveillance. - Continue present medications. Procedure Code(s): --- Professional --- 28255, Colonoscopy, flexible; with removal of tumor(s), polyp(s), or other lesion(s) by snare technique 02141, 59, Colonoscopy, flexible; with biopsy, single or multiple CPT copyright 2021 [employer]. All rights reserved. The codes documented in this report are preliminary and upon freight car inspector review may be revised to meet current compliance requirements. Bridger Lanier DO 06/17/2025 7:17:26 AM This report has been signed electronically. Number of Addenda: 0 Note Initiated On: 06/17/2025 6:26 AM
--- NOTE | 2025-06-17 12:46 | POSTOPAN2_ITS ---
Anesthesia Postop Eval I Sum Postop Eval Completion status Anesthesia document: Postop Eval 1 completed: Yes Anesthesia Postop Eval I Summary Anesthesia Postop Eval I Summary: Anesthesia Postop Eval I: Assessment Summary Airway patent Yes 06/17/25 07:17 FIELD TECHNICAL SPECIALIST.[email or web address] Spontaneous unlabored Yes 06/17/25 07:17 FIELD TECHNICAL SPECIALIST.GDOTT respirations Mental status Awake,Calm 06/17/25 07:17 FIELD TECHNICAL SPECIALIST.GDOTT nausea No 06/17/25 07:17 FIELD TECHNICAL SPECIALIST.GDOTT Vomiting No 06/17/25 07:17 FIELD TECHNICAL SPECIALIST.GDOTT Anesthesia Postop Eval I: Fluid Summary Crystalloid volume administer 300 06/17/25 07:17 FIELD TECHNICAL SPECIALIST.GDOTT (ml) Colloids volume administered ( ml) Blood Product volume administered (ml) Total IV fluid infused 300 06/17/25 07:17 FIELD TECHNICAL SPECIALIST.GDOTT Anesthesia Postop Eval I: Summary Notes Anesthesia Complication No 06/17/25 07:17 FIELD TECHNICAL SPECIALIST.GDOTT Anesthesia Complication Comment: Post-operative progress note Anesthesia: Postop Eval II Evaluation Mental status: Awake and Calm Pain Level: 0 nausea: No Vomiting: No
--- NOTE | 2025-06-17 12:46 | PCM.POSTANE2 ---
Anesthesia Postop Eval I Sum Postop Eval Completion status Anesthesia document: Postop Eval 1 completed: Yes Anesthesia Postop Eval I Summary Anesthesia Postop Eval I Summary: Anesthesia Postop Eval I: Assessment Summary Airway patent Yes 06/17/25 07:17 TECHNICAL SYSTEMS ARCHITECT.GDOTT Spontaneous unlabored Yes 06/17/25 07:17 TECHNICAL SYSTEMS ARCHITECT.GDOTT respirations Mental status Awake,Calm 06/17/25 07:17 TECHNICAL SYSTEMS ARCHITECT.GDOTT nausea No 06/17/25 07:17 TECHNICAL SYSTEMS ARCHITECT.GDOTT Vomiting No 06/17/25 07:17 TECHNICAL SYSTEMS ARCHITECT.GDOTT Anesthesia Postop Eval I: Fluid Summary Crystalloid volume administer 300 06/17/25 07:17 TECHNICAL SYSTEMS ARCHITECT.GDOTT (ml) Colloids volume administered ( ml) Blood Product volume administered (ml) Total IV fluid infused 300 06/17/25 07:17 TECHNICAL SYSTEMS ARCHITECT.GDOTT Anesthesia Postop Eval I: Summary Notes Anesthesia Complication No 06/17/25 07:17 TECHNICAL SYSTEMS ARCHITECT.GDOTT Anesthesia Complication Comment: Post-operative progress note Anesthesia: Postop Eval II Evaluation Mental status: Awake and Calm Pain Level: 0 nausea: No Vomiting: No
== END 2025-06-17 07:49 | disposition home or self-care (01) ==
LOC: EN 05:21 → AC 05:22
PROVIDERS: PCP Family Medicine; Referring Provider Family Medicine; Visit Provider Internal Medicine Gastroenterology
PROC: 0DJD8ZZ Inspection of Lower Intestinal Tract, Via Natural or Artificial Opening Endoscopic (ICD-10-PCS; CPT 45378; principal; 2025-06-17 06:25)
DX: Z12.11 Encounter for screening for malignant neoplasm of colon (principal); I10 Essential (primary) hypertension; K57.50 Diverticulosis of both small and large intestine without perforation or abscess without bleeding; K21.9 Gastro-esophageal reflux disease without esophagitis; E78.00 Pure hypercholesterolemia, unspecified; K64.1 Second degree hemorrhoids; E03.9 Hypothyroidism, unspecified; Z79.890 Hormone replacement therapy; Z79.899 Other long term (current) drug therapy; D12.3 Benign neoplasm of transverse colon
CPT/HCPCS: 45385; 45380; 88305; J2405

== ENCOUNTER → 2025-06-24 | Outpatient (CLI) | payer MEDICARE, OTHER, SELFPAY ==
--- OUTSIDE RECORDS SUMMARY | 2025-06-24 07:16 | XMS RPT_ITS | CCD ---
Author Organization [facility] Providers Care Consumer Services Consultant Name Role Phone Loree Morgan Unavailable Unavailable CebulNahed Unavailable Unavailable MariellaLoree hernández Unavailable Unavailable MariellaLoree hernández Unavailable Unavailable MariellaLoree hernández Unavailable Unavailable CebulNahed Unavailable Unavailable RUMPLER, ERICKA A Unavailable Unavailable Cebul, Nahed Fairchild Unavailable Unavailable RUMPLER, ERICKA A Unavailable Unavailable Cebul, Nahed Fairchild Unavailable Unavailable Rowan Macdonald Unavailable Unavailable Javier SALCIDO, Ashlyn Jama Unavailable Nahed Faust Unavailable Unavailable Unavailable Genevieve Graham MD Primary Care Provider Timothy Isaac PA-C Unavailable Dr. Genevieve Graham Primary Care Provider Dr. Genevieve Graham Referring Provider ERIC Monzon Attending Provider [phone] Genevieve Graham Primary Care Provider Dr. Genevieve Graham Referring Provider Felisa TOOL GRINDER SET UP OPERATOR GEAR, TOOL GRINDER SET UP OPERATOR GEARChristianoC Juany Attending Provider Dr. Genevieve Graham Primary Care Provider Dr. Genevieve Graham Referring Provider Yolande, Dr. Sparks Attending Provider Genevieve Graham MD Primary Care Provider Dr. Genevieve Graham Primary Care Provider Dr. Genevieve Graham Referring Provider Dr. Bridger Lanier Attending Provider Drea TOOL GRINDER SET UP OPERATOR GEAR, TOOL GRINDER SET UP OPERATOR GEAR-C Pearl Rg Attending Provider [phone] Dr. Ash Roberts Primary Care Provider Genevieve Graham MD Primary Care Provider Unavailable Primary Care Provider Unavailabl e Dr. Ash Roberts Primary Care Provider Dr. Ash Gutiérrez Attending Provider Dr. Ash Roberts Referring Provider ERIC Law Attending Provider Drea TOOL GRINDER SET UP OPERATOR GEAR, TOOL GRINDER SET UP OPERATOR GEAR-C Pearl Rg Attending Provider [phone] Geovany MOSCOSO MD, Frank A Primary Care Provider Annie vailable Dr. Ash Roberts Primary Care Provider Dr. Joel Islas Attending Provider Hugo, DO Cash M Primary Care Provider Hugo DO Cash M Referring Provider Dr. Joel Islas Referring Provider [phone] James ROBERTS, TOOL GRINDER SET UP OPERATOR GEAR-Mary Ricci Attending Provider MAN, SHUMEI Attending Unavailable SANTOS, GENEVIEVE D Primary Care Unavailable SANTOS, GENEVIEVE D Primary Care Unavailable MAN, SHUMEI Referring Unavailable NAHED FAUST III Primary Care Unavailable MAN, SHUMEI Attending Unavailable Hugo, DO Cash M Primary Care Provider Hugo, DO Cash M Referring Provider ERIC Law Attending Provider Dr. Sarah Huynh Primary Care Provider Dr. Sarah Huynh Referring Provider Dr. Juan Faust Attending Provider STEVE Huang Attending Provider Dr. Bridger Lanier Attending Provider Dr. Sarah Huynh Primary Care Provider [phone] Sarah Huynh Referring Provider Dr. Juan Faust Attending Provider [phone] STEVE Huang Attending Provider Dr. Bridger Lanier Attending Provider ERIC Poole Attending Provider Cash Arias DO Primary Care Provider Hugo DOCash Primary Care Provider Genevieve Graham MD Primary Care Provider Geovany MOSCOSO MD, Nahed Bradshaw Primary Care Provider Annie vailable Cash Arias DO Primary Care Provider MICHELINE, VIVIANA Referring Unavailable HUGO, CASH PERRY Primary Care Unavailabl e HUGO, CASH VICKY Primary Care Unavailabl e DAINA, CASH Referring Unavailable DAINA, CASH Attending Unavailable HUGO, CASH PERRY Primary Care Unavailabl e Dr. Sarah Huynh MD Primary Care Provider Dr. Sarah Huynh MD Referring Provider [phone] Gus Hernandez Attending Provider Estefany Spears Attending Provider Estefany Spears Referring Provider Jazzy Poole Attending Provider Jazzy Poole Referring Provider Dr. Sarah Huynh MD Attending Provider [phone] Ramone Law Attending Provider Dr. Sarah Huynh MD Primary Care Provider Dr. Sarah Huynh MD Referring Provider Felisa ROBERTS-C, Juany Attending Provider Felisa TOOL GRINDER SET UP OPERATOR GEAR-C, Juany Referring Provider Lino BONE, Dr. Smith Primary Care Provider Lino BONE, Dr. Smith Referring Provider Kimi BONE, Dr. Tony Bradshaw Attending Provider Kimi BONE, Dr. Tony Bradshaw Referring Provider Lino BONE, Dr. Smith Primary Care Provider Estefany Spears Attending Provider Lino BONE, Dr. Smith Primary Care Physician Felisa TOOL GRINDER SET UP OPERATOR GEAR-CJuany Attending Physician Kimi BONE, Dr. Tony Bradshaw Attending Physician Lino BONE, Dr. Smith Referring Provider Estefany Spears Attending Physician Estefany Spears Referring Provider Dr. Bridger Lanier DO Attending Physician Dr. Bridger Lanier DO Nurse Practitioner Miedel, Sarah Primary Care Unavailable Tony Bolden Referring Unavailable Tony Bolden Attending Unavailable Miedel, Sarah Primary Care Unavailable Estefany Huerta Referring Unavailable Estefany Huerta Attending Unavailable Miedel, Sarah Primary Care Unavailable Miedel, Sarah Referring Unavailable Bridger Lanier Attending Unavailable Miedel, Sarah Primary Care Unavailable Estefany Huerta Referring Unavailable Estefany Huerta Attending Unavailable Miedel, Sarah Primary Care Unavailable Miedel, Sarah Referring Unavailable Ramone Law Attending Unavailable Miedel, Sarah Primary Care Unavailable Miedel, Sarah Referring Unavailable Estefany Huerta Attending Unavailable Miedel, Sarah Primary Care Unavailable Miedel, Sarah Referring Unavailable Jennifer Huang Attending Unavailable Miedel, Sarah Primary Care Unavailable FriendBridger Attending Unavailable FriendBridger Consulting Unavailable Miedel, Sarah Referring Unavailable Miedel, Sarah Primary Care Unavailable Miedel, Sarah Referring Unavailable Gus Hernandez Attending Unavailable Miedel, Sarah Primary Care Unavailable Miedel, Sarah Referring Unavailable Estefany Huerta Attending Unavailable Miedel, Sarah Primary Care Unavailable Miedel, Sarah Referring Unavailable Jazzy Poole Attending Unavail able Miedel, Sarah Primary Care Unavailable Jazzy Poole Attending Unavail able Jazzy Poole Referring Unavail able Miedel, Sarah Primary Care Unavailable Miedel, Sarah Attending Unavailable Miedel, Sarah Primary Care Unavailable Felisa TOOL GRINDER SET UP OPERATOR GEARJuany Referring Unavailable Felisa TOOL GRINDER SET UP OPERATOR GEARJuany Attending Unavailable Allergies Allergy Classification Reported Allergen(s) Allergy Type Date of Onset Reaction(s) Facility (20 sources) atorvastatin; Translations: [ATORVASTATIN CALCIUM] Drug Allergy 12-18-19 07 Myalgia [facility] (20 sources) Sulfamethoxazole; Translations: [SULFAMETHOXAZOLE ] Drug Allergy 11-01-19 21 Other: See Comments [facility] Work Phone: (1 source) House dust mite; Translations: [DUST MITES] allergy to substance 03-24-20 21 [facility] Work Phone: (1 source) Latex; Translations: [LATEX] allergy to substance 03-24-20 21 [facility] Work Phone: (1 source) Mold Extract; Translations: [MOLD] Drug Allergy 03-24-20 21 [facility] Work Phone: (1 source) Seasonal allergy; Translations: [SEASONAL] allergy to substance 01-12-20 [facility] Work Phone: (1 source) Sulfacetamide Drug Allergy 03-24-20 21 [facility] Work Phone: (3 sources) Surgical adhesive tape; Translations: [SURGICAL TAPE] allergy to substance 10-23-19 Rash [facility] Work Phone: (1 source) PLANT POLLENS; Translations: [PLANT POLLENS] allergy to substance 03-24-20 21 hay fever [facility] Work Phone: (20 sources) atorvastatin Drug Allergy 10-23-19 itching [facility] (20 sources) Sulfonamides (Antibiotic); Translations: [Sulfa (Sulfonamide Antibiotics)] Allergy to substance 10-23-19 Other [facility] (20 sources) Adhesive Tape; Translations: [adhesive tape] Propensity to adverse reactions 04-18-20 [facility] Comment on above: SURGICAL TAPE (1 source) atorvastatin Drug Allergy 06-17-20 [facility] Repository Medications Current Medications Medication Drug Class(es) Dates Sig (Normalized) Sig (Original) acetaminophen 500 mg oral tablet (20 sources) take 1 tablet by mouth every eight hours as needed acetaminophen (TYLENOL) 500 mg tablet Take 500 mg by mouth every 8 hours as needed. Active Comment on above: Take 500 mg by mouth every 8 hours as needed. [id number] 200 actuat albuterol 0.09 mg/actuat metered dose inhaler (20 sources) beta2-Adrenergic Agonist Start: 10-31-2018 End: 07-17-2022 albuterol HFA (PROAIR HFA) 90 mcg/actuation inhaler Inhale 2 Puffs as instructed every 4 hours as needed. Disp 1 inhaler with 11 refills 1 Each 07/17/2022 Active Start: 10-11-2017 Start: 10-11-2017 take 1 puff(s) by in halation every four hours Albuterol Sulfate Active 2 PUFF INHALATION Q4H October 11, 2017 1:00am Start: 08-08-2013 End: 09-21-2022 albuterol 5 mg/mL nebu Indications: Bronchitis , Cough Inhale 0.5 mL as [...] needed. Disp 1 inhaler with 11 refills cholecalciferol 0.1 mg oral capsule (20 sources) Vitamin D Start: 03-24-20 take 2 tablets by mouth once daily VITAMIN D3 50 MCG (2000 UT) TABS 2 tablet by mouth once a day cholecalciferol (vitamin d3) [id number] Vicki Zhangr AT Start: 02-06-2021 End: 06-09-2021 take 1 capsule by mouth once daily cholecalciferol, vitamin D3, (VITAMIN D3) 100 mcg (4,000 unit) cap Take 1 capsule by mouth once daily. 90 capsule 3 06/09/2021 Active Start: 01-28-2018 take 3 capsules by m out once daily Vitamin D3 25 MCG (1000 UT) Oral Capsule 3 capsules by mouth daily Quantity: 0 Refills: 0 Ordered: 28-Jan-2018 Ericka Christian Start : 28-Jan-2018 Active Start: 10-11-2017 take 2 capsules by m out once daily Start: 10-11-2017 take 4000 [IU] by [facility] once daily Cholecalciferol (Vitamin D3) Active 4000 UNIT PO daily October 11, 2017 1:00am Comment on above: Take 1 capsule by [facility] once daily. cyclobenzaprine hydrochloride 10 mg oral tablet (1 source) Muscle Relaxant Start: 01-11-20 End: 01-17-20 take 1 tablet by mouth every twelve hours as needed cyclobenzaprine (FLEXERIL) 10 mg tablet Take 1 tablet by mouth twice daily as needed for muscle spasm for up to 6 days. 12 tablet 0 01/10/2022 01/16/2022 Active Comment on above: Take 1 tablet by [facility] twice daily as needed for muscle [...] vaginal cream (20 sources) Estrogen Start: 06-11-20 Start: 03-18-2022 End: 06-11-2024 Estradiol 0.01 % [...] tablet (1 source) Nonsteroidal Anti-inflammatory Drug Start: 01-11-20 End: 01-18-20 take 1 tablet by mouth every six hours as needed ibuprofen (MOTRIN) 600 mg tablet Take 1 tablet by mouth every 6 hours as needed for pain for up to 7 days. 28 tablet 0 01/10/2022 01/17/2022 Active Comment on above: Take 1 tablet by barbara th every 6 hours as needed for pain for up to 7 days. ipratropium bromide 0.021 mg/actuat metered dose nasal spray (1 source) Anticholinergic Start: 12-18-19 Ipratropium [place] 21 mcg (0.03 %) spray,non-aerosol (4 sources) Start: 12-18-19 Ipratropium [place] 21 mcg (0.03 %) spray,non-aerosol Active 2 [...] DO Start : 23-Jun-2018 Active Start: 06-06-2018 Start: 06-06-2018 take 88 ug by mouth [...] 1 tablet by mouth every eight hours Start: 04-10-2021 End: 04-19-2022 take 1 tablet [...] tablet (20 sources) Proton Pump Inhibitor Start: 03-17-2024 take 1 tablet by mouth once daily as needed for gastroesophageal reflux disease Start: 12-10-2018 End: 09-10-2022 take 1 tablet by mouth once daily Pantoprazole 40 MG tablet Discontinued 40 mg PO DAILY December 10, 2018 12:00am September 10, 2022 11:22am Start: 10-16-2017 Pantoprazole S odium 40 MG Oral Tablet Delayed Release Quantity: 30 Refills: 0 Ordered: 16-Oct-2017 DO Start : 16-Oct-2017 Active Comment on above: Take 1 tablet by barbara once daily. rosuvastatin calcium 20 mg oral tablet (12 sources) HMG-CoA Reductase Inhibitor Start: 05-15-2024 take 2 tablets by mouth at bedtime Start: 04-16-2024 End: 05-15-2024 take 1 tablet by mouth at bedtime Rosuvastatin 20 mg tablet Discontinued 20 mg PO AT BEDTIME 30 April 16, 2024 12:00am May 15, 2024 [...] mg / clavulanate 125 mg oral tablet (8 sources) Penicillin-class Antibacterial Start: 10-19-2023 End: 10-24-2023 Amoxicillin-Pot Clavulanate (Augmentin) 500-125 mg tablet Discontinued 1 {tbl} PO TWICE A DAY 10 5 0 October 19, 2023 1:00am October 23, 2023 1:00am October 24, 2023 1:05am aspirin 81 mg delayed release oral tablet (6 sources) Platelet Aggregation Inhibitor, Nonsteroidal Anti-inflammatory Drug Start: 03-17-2024 End: 12-08-2024 take 1 tablet by mouth once daily Aspirin (Adult Aspirin Regimen) 81 mg tablet,delayed release (DR/EC) Discontinued 81 mg PO DAILY 30 0 March 17, 2024 12:00am December 08, 2024 1:51pm azithromycin 250 mg oral tablet (5 sources) Macrolide Antimicrobial Start: 12-17-2024 End: 06-14-2025 take 2-5 tablets by mouth once daily Azithromycin 250 mg tablet Discontinued 0 PO .COMPLEX 6 0 December 17, 2024 12:00am June 14, 2025 10:41am take 500 mg today (day 1), then 250 mg for 4 days (days 2-5) PO benzonatate 100 mg oral capsule (13 sources) Non-narcotic Antitussive Start: 10-19-2023 End: 12-08-2023 [...] on above: Take 1 capsule by mo [facility] three times daily as needed for cough. calcium carbonate 500 mg chewable tablet (3 sources) Start: 017 ANTACID 500 MG CHEW once daily CALCIUM CARBONATE ANTACID [id number] Ashlyn Herrera DC chlordiazePOXIDE hydrochloride 5 mg [...] mouth four times a day clindamycin hcl [id number] Vicki Malia AT dicyclomine hydrochloride 10 mg oral capsule [...] esomeprazole 40 mg delayed release oral capsule (15 sources) Proton Pump Inhibitor Start: 09-10-2022 End: 10-30-2022 take 1 capsule by mouth once daily in the morning Esomeprazole Magnesium 40 mg capsule,delayed release(DR/EC) Discontinued 40 mg PO EVERY MORNING September 10, 2022 1:00am October 30, 2022 11:17am ezetimibe 10 mg / simvastatin 40 mg oral tablet (3 sources) HMG-CoA Reductase Inhibitor, Dietary Cholesterol Absorption Inhibitor Start: 07-03-2017 EZETIMIBE-SIMVASTATI N 10-40 MG TABS One daily EZETIMIBE-SIMVASTATI N [id number] Ashlyn Herrera DC fluticasone propionate 0.05 mg/actuat metered dose nasal spray (20 sources) Corticosteroid Start: 12-10-2018 End: 06-11-2024 Fluticasone Propionate 16 GM spray,suspension Discontinued 2 SPR NASAL DAILY as needed for Nasal Congestion December 10, 2018 12:00am June 11, 2024 9:34am Start: 02-01-2018 take 2 spray(s) by [facility] once daily fluticasone (FLONASE) 50 mcg/actuation nasal [...] Comment on above: Take 1 capsule by [facility] twice daily for 30 days. Take 300 mg by mouth every morning. Take 1 capsule by [facility] daily at bedtime. Take 1 capsule by mo [facility] daily at bedtime for 90 days. hydrocortisone 10 mg/ml / neomycin 3.5 mg/ml / polymyxin b 50281 unt/ml otic suspension (6 sources) Aminoglycoside Antibacterial, Polymyxin-class Antibacterial, Corticosteroid Start: 2023 End: 2023 Oafxvkpp-Esorjhplu-Du 3.5-10,000-1 mg/mL-unit/mL-% drops,suspension Discontinued 4 NMA OTIC THREE TIMES A DAY 10 September 09, 2024 1:00am September 18, [...] 2018 8:40am methylPREDNISolone 4 mg oral tablet (11 sources) Corticosteroid Start: 2024 End: 2024 take [...] / nitrofurantoin, monohydrate 75 mg oral capsule (18 sources) Nitrofuran Antibacterial Start: End: take 1 [...] dissolve , or chew polyethylene glycol 3350 [id number] mg / potassium chloride 2970 mg / sodium bicarbonate 6740 mg / sodium chloride 5860 mg / sodium sulfate 07021 mg powder for oral solution (20 sources) [...] 1 tablet by mouth as directed pramipexole [id number] Terena Pate RN predniSONE 10 mg oral tablet (7 sources) Start: 12-08-2023 End: 03-17-2024 Prednisone 10 [...] on above: Take 1 capsule by mo [facility] once daily. simvastatin 40 mg oral tablet [...] 2018 8:41am ursodiol 250 mg oral tablet (12 sources) Bile Acid Start: 10-30-2022 End: 04-10-2023 take 1 tablet by mouth twice daily Ursodiol 250 mg tablet Discontinued 250 mg PO TWICE A DAY 180 3 October 30, 2022 1:00am April 10, 2023 1:34pm Problems Active Problems Problem Classification Problem Date Documented Da te Episodic/Chronic Acute bronchitis (9 sources) Acute bronchitis; Translations: [Acute bronchitis, unspecified] 12-18-2024 Episodic Asthma (20 sources) Asthmatic bronchitis; Translations: [Unspecified asthma, uncomplicated] 12-11-2018 Chronic Cardiac dysrhythmias (20 sources) Premature atrial contraction; Translations: [Atrial premature depolarization] Onset: 9 12-15-2018 Chronic Coagulation and hemorrhagic disorders (20 sources) Platelet count below reference range; Translations: [Thrombocytopenia, unspecified] Onset: 6 01-31-2017 Chronic Coronary atherosclerosis and other heart disease (13 sources) Coronary atherosclerosis; Translations: [Atherosclerotic heart disease of [place] coronary artery without angina pectoris] Onset: 5 [...] Onset: 2 01-31-2017 Chronic E Codes: Natural/environment (8 sources) Insect bite - wound; Translations: [Bitten [...] Episodic Immunizations and screening for infectious disease (19 sources) Antineutrophil cytoplasmic antibody positive; Translations: [Other [...] unspecified] Onset: 2 07-10-2012 Chronic Other aftercare (5 sources) Patient encounter status; Translations: [Other specified aftercare] Episodic Other bone disease and musculoskeletal deformities (20 sources) Osteopenia; Translations: [Other specified disorders of bone density and structure, unspecified site] Onset: 5 03-07-2015 Episodic Other connective tissue disease (20 sources) Trochanteric bursitis of right hip; Translations: [Trochanteric bursitis, right hip] Onset: 3 12-12-2012 Episodic Other connective tissue disease (20 sources) [...] otitis externa, right ear] 09-09-2024 Episodic Other ear and sense organ disorders (1 source) Acute otitis externa of right ear; Translations: [Unspecified acute noninfective otitis externa, right ear] 09-09-2024 Episodic Other gastrointestinal disorders (20 sources) Irritable bowel syndrome; Translations: [Irritable bowel syndrome without diarrhea] Onset: 7 07-03-2017 Chronic Other gastrointestinal disorders (10 sources) Irritable bowel syndrome without diarrhea; Translations: [Irritable bowel syndrome] Chronic Other gastrointestinal disorders (20 sources) Constipation; Translations: [Constipation, unspecified] 09-10-2022 Episodic [...] syndrome)] Onset: 4 Chronic Other liver diseases (17 sources) Steatosis of liver; Translations: [Fatty (change [...] Episodic Other nutritional; endocrine; and metabolic disorders (8 sources) Weight decreased; Translations: [Abnormal weight loss] 10-23-2024 Episodic Other screening for suspected conditions (not mental disorders or infectious disease) (20 sources) CT of abdomen abnormal; Translations: [Nonspecific (abnormal) findings on radiological and other examination of abdominal area, including retroperitoneum] Onset: 5 03-17-2024 Episodic Other upper respiratory disease (20 sources) Seasonal allergy; Translations: [Other seasonal allergic rhinitis] Onset: 6 07-03-2017 Chronic Other upper respiratory disease (1 source) Respiratory tract congestion; Translations: [Nasal congestion] Episodic Other upper respiratory infections (4 sources) Sinusitis; Translations: [Chronic sinusitis, unspecified] 10-19-2023 Chronic Other upper respiratory infections (18 sources) Acute pharyngitis; Translations: [Acute pharyngitis, unspecified] [...] 12-24-2022 Episodic Genitourinary symptoms and ill-defined conditions (20 sources) Dysuria; Translations: [Dysuria] Onset: 03-27-2016 Resolved: [...] thoracic region] Onset: 07-03-2017 07-04-2017 Episodic Other gastrointestinal disorders (20 sources) Chronic [...] structures] Onset: 2015 Resolved: 02-14-2017 02-14-2017 Chronic Spondylosis; intervertebral disc disorders; other back problems (20 sources) Lumbar radiculopathy; Translations: [Radiculopathy, lumbar region] Onset: 02-29-2020 02-29-2020 Episodic Unclassified (1 source) Encounter for other preprocedural examination; Translations: [Encounter for other preprocedural examination] Onset: 11-01-2017 Unclassified (1 source) Problem Results Test Name Value Interpretation Reference Range Facility Colonoscopy Reporton [address] [facility] Medical Records Department [address] [place] [address] Colonoscopy Report MR#: [id number] Acct: [id number] Name: HALLIE GUZMAN Rep #: [id number] : 1950 75 From: Bridger Lanier DO PCP: Dr. Sarah Huynh MD Status:[facility] Patient Name: Hallie Guzman Procedure Date: 06/17/2025 6:26 AM Date of : 1950 Age: 75 Procedure: Colonoscopy Indications: Screening for colorectal malignant neoplasm Providers: Bridger Lanier DO Referring MD: Sarah Huynh Medicines: Monitored Anesthesia Care Patient Profile: This is a 75 year old female. Refer to note in patient chart for documentation of history and physical. Last Colonoscopy: 5 years ago. Complications: No immediate complications. Procedure: Pre-Anesthesia Assessment: - Prior to the procedure, a History and Physical was performed, and patient medications and allergies were reviewed. The patient is competent. The risks and benefits of the procedure and the sedation options and risks were discussed with the patient. All questions were answered and informed consent was obtained. Patient identification and proposed procedure were verified by the physician in the pre-procedure area. Mental Status Examination: alert and oriented. Airway Examination: normal oropharyngeal airway and neck mobility. Respiratory Examination: clear to auscultation. CV Examination: normal. Prophylactic Antibiotics: The patient does not require prophylactic antibiotics. Prior Anticoagulants: The patient has taken no anticoagulant or antiplatelet agents except for NSAID medication. ASA Grade Assessment: II - A patient with mild systemic disease. After reviewing the risks and benefits, the patient was deemed in satisfactory condition to undergo the procedure. The anesthesia plan was to use monitored anesthesia care (MAC). Immediately prior to administration of medications, the patient was re-assessed for adequacy to receive sedatives. The heart rate, respiratory rate, oxygen saturations, blood pressure, adequacy of pulmonary ventilation, and response to care were monitored throughout the procedure. The physical status of the patient was re-assessed after the procedure. After I obtained informed consent, the scope was passed under direct vision. Throughout the procedure, the patient's blood pressure, pulse, and oxygen saturations were monitored continuously. The Colonoscope was introduced through the anus and advanced to the cecum, identified by appendiceal orifice and ileocecal valve. The colonoscopy was performed without difficulty. The patient tolerated the procedure well. The quality of the bowel preparation was adequate. The ileocecal valve, appendiceal orifice, and rectum were photographed. Scope In: 6:45:49 AM Scope Withdrawal Time 0 hours 8 minutes 10 seconds Scope Out: 7:05:29 AM Total Procedure Duration Time 0 hours 19 minutes 40 seconds Findings: The perianal and digital rectal examinations were normal. Multiple small and large-mouthed diverticula were found in the entire colon. A 10 mm polyp was found in the hepatic flexure. The polyp was sessile. The polyp was removed with a hot snare. Resection and retrieval were complete. Verification of patient identification for the specimen was done. Estimated blood loss was minimal. Three sessile polyps were found in the splenic flexure and transverse colon. The polyps were 8 mm in size. These polyps were removed with a jumbo cold forceps. Resection and retrieval were complete. Verification of patient identification for the specimen was done. Estimated blood loss was minimal. Non-bleeding internal hemorrhoids were found during retroflexion. The hemorrhoids were Grade II (internal hemorrhoids that prolapse but reduce spontaneously). Impression: - Diverticulosis in the entire examined colon. - One 10 mm polyp at the hepatic flexure, removed with a hot snare. Resected and retrieved. - Three 8 mm polyps at the splenic flexure and in the transverse colon, removed with a jumbo cold forceps. Resected and retrieved. Recommendation: - Repeat colonoscopy in 5 years for surveillance. - Continue present medications. Procedure Code(s): --- Professional --- 46447, Colonoscopy, flexible; with removal of tumor(s), polyp(s), or other lesion(s) by snare technique 79914, 59, Colonoscopy, flexible; with biopsy, single or multiple CPT copyright 2021 [employer] [place] [employer]. All rights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 L506.0400, L3300.0960, L501.9520, L100.0100 #### [facility] [address] [place], [address] MCH (RBC) [Entitic mass] 30.4 pg Normal 27.0-32.0 [facility] Comment on above: Performed By: #### L 501.70860, L500.4050, L501.2450, L501.5200, L506.0400, L3300.0960, L501.9520, L100.0100 #### [facility] [address] [place], [address] MCHC (RBC) [Mass/Vol] 33.2 g/dL Normal 32-36 [facility] Comment on above: Performed By: #### L 501.55981, L500.4050, L501.2450, L501.5200, L506.0400, L3300.0960, L501.9520, L100.0100 #### [facility] [address] [place], [address] MCV (RBC) [Entitic vol] 91.4 fL Normal 81-99 [facility] Comment on above: Performed By: #### L 501.78156, L500.4050, L501.2450, L501.5200, L506.0400, L3300.0960, L501.9520, L100.0100 #### [facility] [address] [place], [address] Monocytes/100 WBC (Bld) 10.5 % High 0-10 [facility] Comment on above: Performed By: #### L 501.12194, L500.4050, L501.2450, L501.5200, L506.0400, L3300.0960, L501.9520, L100.0100 #### [facility] [address] [place], [address] Neutrophils/100 WBC (Bld) 65.4 % Normal 47-70 [facility] Comment on above: Performed By: #### L 501.82733, L500.4050, L501.2450, L501.5200, L506.0400, L3300.0960, L501.9520, L100.0100 #### [facility] [address] [place], [address] Nucleated RBC (Bld) [#/Vol] 0 10*3/uL Normal 0-5 [facility] Comment on above: Performed By: #### L 501.32412, L500.4050, L501.2450, L501.5200, L506.0400, L3300.0960, L501.9520, L100.0100 #### [facility] [address] [place], [address] Platelet mean volume (Bld) [Entitic vol] 11.6 fL Normal 6.2-12.0 [facility] Comment on above: Performed By: #### L 501.85345, L500.4050, L501.2450, L501.5200, L506.0400, L3300.0960, L501.9520, L100.0100 #### [facility] [address] [place], [address] Platelets (Bld) [#/Vol] 116 10*3/uL Low 150-450 [facility] Comment on above: Performed By: #### L 501.05998, L500.4050, L501.2450, L501.5200, L506.0400, L3300.0960, L501.9520, L100.0100 #### [facility] [address] [place], [address] RBC (Bld) [#/Vol] 5.14 10*6/uL Normal 4.2-5.4 [facility] Comment on above: Performed By: #### L 501.67187, L500.4050, L501.2450, L501.5200, L506.0400, L3300.0960, L501.9520, L100.0100 #### [facility] [address] [place], [address] RDW SD 43.2 fl Normal 35.1-43.9 [facility] Comment on above: Performed By: #### L 501.68132, L500.4050, L501.2450, L501.5200, L506.0400, L3300.0960, L501.9520, L100.0100 #### [facility] [address] [place], [address] WBC (Bld) [#/Vol] 5.5 10*3/uL Normal 4.4-11.0 [facility] Comment on above: Performed By: #### L 501.15493, L500.4050, L501.2450, L501.5200, L506.0400, L3300.0960, L501.9520, L100.0100 #### [facility] [address] [place], [address] Carbon dioxide measurementOr dered By: Estefany Huerta on 10-23-2024 CO2 [Moles/Vol] 28.0 mmol/L 21.0-32.0 [facility] Chloride measurementOrdered By: Estefany Huerta on 10-23-2024 Chloride [Moles/Vol] 110 mmol/L High 98-107 [facility] Comprehensive Metabolic Prof ilon 10-23-2024 Albumin [Mass/Vol] 3.6 g/dL Normal 3.2-5.0 [facility] Comment on above: Performed By: #### L 501.54541, L500.4050, L501.2450, L501.5200, L506.0400, L3300.0960, L501.9520, L100.0100 #### [facility] [address] [place], [address] Albumin/Globulin [Mass ratio] 1.2 {ratio} Normal 0.9-2.4 [facility] Comment on above: Performed By: #### L 501.92970, L500.4050, L501.2450, L501.5200, L506.0400, L3300.0960, L501.9520, L100.0100 #### [facility] [address] [place], [address] ALK P 98 U/L Normal 45-117 [facility] Comment on above: Performed By: #### L 501.25765, L500.4050, L501.2450, L501.5200, L506.0400, L3300.0960, L501.9520, L100.0100 #### [facility] [address] [place], [address] ALT [Catalytic activity/Vol] 23 U/L Normal 13-56 [facility] Comment on above: Performed By: #### L 501.48188, L500.4050, L501.2450, L501.5200, L506.0400, L3300.0960, L501.9520, L100.0100 #### [facility] [address] [place], [address] AST [Catalytic activity/Vol] 10 U/L Low 15-37 [facility] Comment on above: Performed By: #### L 501.24384, L500.4050, L501.2450, L501.5200, L506.0400, L3300.0960, L501.9520, L100.0100 #### [facility] [address] [place], [address] Bilirubin [Mass/Vol] 0.30 mg/dL Normal 0.20-1.00 [facility] Comment on above: Result Comment: For patients on eltrombopag therapy, use of Dimension Alta TBIL is not recommended. Performed By: #### L 501.47081, L500.4050, L501.2450, L501.5200, L506.0400, L3300.0960, L501.9520, L100.0100 #### [facility] [address] [place], [address] BUN/CRE 22.8 RATIO High 10-20 [facility] Comment on above: Performed By: #### L 501.60851, L500.4050, L501.2450, L501.5200, L506.0400, L3300.0960, L501.9520, L100.0100 #### [facility] [address] [place], [address] CA,Total 10.3 mg/dL High 8.5-10.1 [facility] Comment on above: Performed By: #### L 501.07970, L500.4050, L501.2450, L501.5200, L506.0400, L3300.0960, L501.9520, L100.0100 #### [facility] [address] [place], [address] Chloride [Moles/Vol] 110 mmol/L High 98-107 [facility] Comment on above: Performed By: #### L 501.17631, L500.4050, L501.2450, L501.5200, L506.0400, L3300.0960, L501.9520, L100.0100 #### [facility] [address] [place], [address] CO2 [Moles/Vol] 28.0 mmol/L Normal 21.0-32.0 [facility] Comment on above: Performed By: #### L 501.88324, L500.4050, L501.2450, L501.5200, L506.0400, L3300.0960, L501.9520, L100.0100 #### [facility] [address] [place], [address] Creatinine [Mass/Vol] 0.92 mg/dL Normal 0.55-1.02 [facility] Comment on above: Result Comment: The validity of the calculated GFR GFRAA in patients over 70 years has not been determined. Clinical correlation is essential. Performed By: #### L 501.11804, L500.4050, L501.2450, L501.5200, L506.0400, L3300.0960, L501.9520, L100.0100 #### [facility] [address] [place], [address] EST GFR - AA 77 mL/min Normal >60 [facility] Comment on above: Result Comment: Afri can Citizen [place] GFR Calc Performed By: #### L 501.53624, L500.4050, L501.2450, L501.5200, L506.0400, L3300.0960, L501.9520, L100.0100 #### [facility] [address] [place], [address] GAP 5 Normal 5-15 [facility] Comment on above: Performed By: #### L 501.38307, L500.4050, L501.2450, L501.5200, L506.0400, L3300.0960, L501.9520, L100.0100 #### [facility] [address] [place], [address] GFR/1.73 sq M.predicted among non-blacks MDRD (S/P/Bld) [Vol rate/Area] 63 mL/min/{1.73_m2} Normal >60 [facility] Comment on above: Result Comment: Non- GFR Calc Performed By: #### L 501.08950, L500.4050, L501.2450, L501.5200, L506.0400, L3300.0960, L501.9520, L100.0100 #### [facility] [address] [place], [address] Globulin (S) [Mass/Vol] 3.1 g/dL Normal 2.2-4.2 [facility] Comment on above: Performed By: #### L 501.22822, L500.4050, L501.2450, L501.5200, L506.0400, L3300.0960, L501.9520, L100.0100 #### [facility] [address] [place], [address] Glucose [Mass/Vol] 111 mg/dL High 74-106 [facility] Comment on above: Result Comment: Fast ing Glucose result from 100 to 125 mg/dL suggests IMPAIRED HOMEOSTASIS per A.D.A. criteria. Performed By: #### L 501.87247, L500.4050, L501.2450, L501.5200, L506.0400, L3300.0960, L501.9520, L100.0100 #### [facility] [address] [place], [address] Potassium [Moles/Vol] 3.6 mmol/L Normal 3.5-5.1 [facility] Comment on above: Performed By: #### L 501.37579, L500.4050, L501.2450, L501.5200, L506.0400, L3300.0960, L501.9520, L100.0100 #### [facility] [address] [place], [address] Sodium [Moles/Vol] 142 mmol/L Normal 136-145 [facility] Comment on above: Performed By: #### L 501.06487, L500.4050, L501.2450, L501.5200, L506.0400, L3300.0960, L501.9520, L100.0100 #### [facility] [address] [place], [address] T PROT 6.7 g/dL Normal 6.4-8.2 [facility] Comment on above: Performed By: #### L 501.63896, L500.4050, L501.2450, L501.5200, L506.0400, L3300.0960, L501.9520, L100.0100 #### [facility] [address] [place], [address] Urea nitrogen [Mass/Vol] 21 mg/dL High 7-18 [facility] Comment on above: Performed By: #### L 501.03618, L500.4050, L501.2450, L501.5200, L506.0400, L3300.0960, L501.9520, L100.0100 #### [facility] [address] [place], [address] Direct serum free thyroxine (FT4) measurementOrdered By: Estefany Huerta on 10-23-2024 Free T4 [Mass/Vol] 1.42 ng/dL 0.76-1.46 [facility] Eosinophil percentageOrdered By: Estefany Huerta on 10-23-2024 Eosinophils/100 WBC (Bld) 3.4 % 0-5 [facility] Erythrocyte distribution wid th ratioOrdered By: Estefany Huerta on 10-23-2024 Erythrocyte distribution width (RBC) [Ratio] 12.8 % 11.6-14.6 [facility] Erythrocyte distribution wid th standard deviationOrdered By: Estefany Huerta on 10-23-2024 Erythrocyte distribution width (RBC) [Entitic vol] 43.2 fL 35.1-43.9 [facility] Estimated glomerular filtrat ion rate (GFR) AmericanOrdered By: Estefany Huerta on 10-23-2024 Estimated GFR (MDRD) Amer 77 mL/min >60 [facility] Comment on above: GFR Calc Free T3on 10-23-2024 Free T3 [Mass/Vol] 2.2 pg/mL Normal 2.18-3.98 [facility] Comment on above: Performed By: #### L 501.17978, L500.4050, L501.2450, L501.5200, L506.0400, L3300.0960, L501.9520, L100.0100 #### [facility] [address] [place], [address] Free K5Bfakuss By: Estefany maher on 10-23-2024 Free Triiodothyronine (T3) pg/dL 2.2 pg/mL 2.18-3.98 [facility] Gastroenterology Visit Repor ton 10-23-2024 Gastroenterology Visit Report [facility] [address] [place] [address] OFFICE VISIT Date of Service: 10/23/24 MR#: [id number] Acct: [id number] Name: HALLIE GUZMAN Rep #: [id number] : 1950 Provider: ERIC Long Age/Sex: 74/F Location: [facility] Status: Signed Intake Vital Signs 04/05/24 13:19 [...] and bloody stools. Continues taking pantoprazole daily. [facility] Medical History (Updated 10/23/24 @ 10:33 [...] ? Colonoscopy diverticulosis ? Small bowel Xray 09.27.20 without acute/chronic finding ? Acute abd series [...] without pertinent abnormality.? FIB4 1.45 ? AST [id number] 0.2 ? GET 07.25.22 WNL OV 12.1 (more content not included)... Normal [facility] Glomerular filtration rate ( GFR) estimationOrdered By: Estefany Huerta on 10-23-2024 Estimated GFR (MDRD) Non-Af Amer 63 mL/min >60 [facility] Comment on above: Non- GFR Calc Glucose measurementOrdered B y: Estefany Huerta on 10-23-2024 Glucose [Mass/Vol] 111 mg/dL High 74-106 [facility] Comment on above: Fasting Glucose resu lt from 100 to 125 mg/dL suggests IMPAIRED HOMEOSTASIS per A.D.A. criteria. Hematocrit Auto (Bld) [Volum e fraction]Ordered By: Estefany Huerta on 10-23-2024 Hematocrit (Bld) [Volume fraction] 47.0 % 37-47 [facility] Hemoglobin measurementOrdere d By: Estefany Huerta on 10-23-2024 Hemoglobin (Bld) [Mass/Vol] 15.6 g/dL High 12.0-15.0 [facility] Immature granulocytes/100 WB C Auto (Bld)Ordered By: Estefany Huerta on 10-23-2024 Immature granulocytes/100 WBC (Bld) 0.200 % 0.0-0.9 [facility] Comment on above: IG% - Immature Granu locytes (promyelocytes, myelocytes and metamyelocytes) > 1% indicates that a LEFT SHIFT is Present. Laboratory - Chemistry and C hemistry - challengeOrdered By: Estefany Huerta on 10-23-2024 AST [Catalytic activity/Vol] 10 U/L Low 15-37 [facility] Lipaseon 10-23-2024 Lipase [Catalytic activity/Vol] 29 U/L Normal 13-75 [facility] Comment on above: Result Comment: Elmo duran note: LIPASE revised reference range effective 23. New Lipase methodology. Expected to produce lower values than the previous assay method. NEW Reference Range: 13 - 75 U/L Performed By: #### L 501.42409, L500.4050, L501.2450, L501.5200, L506.0400, L3300.0960, L501.9520, L100.0100 #### [facility] [address] [facility] [place], [place], [address] Lipase measurementOrdered By : Estefany Huerta on 10-23-2024 Lipase [Catalytic activity/Vol] 29 U/L 13-75 [facility] Comment on above: Please note:LIPASE r evised reference range effective 23. New Lipase methodology. Expected to produce lower values than the previous assay method. NEW Reference Range: 13 - 75 U/L Lymphocytes Auto (Unsp spec) [#/Vol]Ordered By: Estefany Huerta on 10-23-2024 Lymphocytes (Bld) [#/Vol] 1.11 10*3/uL 0.83-4.51 [facility] Lymphocytes/100 WBC Auto (Un sp spec)Ordered By: Estefany Huerta on 10-23-2024 Lymphocytes/100 WBC (Bld) 20.1 % 19-41 [facility] MCV (mean corpuscular volume ) determinationOrdered By: Estefany Huerta on 10-23-2024 MCV (RBC) [Entitic vol] 91.4 fL 81-99 [facility] Magnesiumon 10-23-2024 Magnesium [Mass/Vol] 2.2 mg/dL Normal 1.6-2.6 [facility] Comment on above: Performed By: #### L 501.69795, L500.4050, L501.2450, L501.5200, L506.0400, L3300.0960, L501.9520, L100.0100 #### [facility] [address] [place], [place] [address], [address] Magnesium measurementOrdered By: Estefany Huerta on 10-23-2024 Magnesium [Mass/Vol] 2.2 mg/dL 1.6-2.6 [facility] Mean corpuscular hemoglobin (MCH) determinationOrdered By: Estefany Huerta on 10-23-2024 MCH (RBC) [Entitic mass] 30.4 pg 27.0-32.0 [facility] Mean corpuscular hemoglobin concentration (MCHC) determinationOrdered By: Estefany Huerta on 10-23-2024 MCHC (RBC) [Mass/Vol] 33.2 g/dL 32-36 [facility] Mean platelet volume determi nationOrdered By: Estefany Huerta on 10-23-2024 Platelet mean volume (Bld) [Entitic vol] 11.6 fL 6.2-12.0 [facility] Monocyte percentageOrdered B y: Estefany Huerta on 10-23-2024 Monocytes/100 WBC (Bld) 10.5 % High 0-10 [facility] Neutrophil percentageOrdered By: Estefany Huerta on 10-23-2024 Neutrophils/100 WBC (Bld) 65.4 % 47-70 [facility] Nucleated red blood cell per centageOrdered By: Estefany Huerta on 10-23-2024 Nucleated RBC/100 WBC (Bld) [Ratio] 0 % 0-5 [facility] Platelet countOrdered By: Elizabeth Huerta on 10-23-2024 Platelets (Bld) [#/Vol] 116 10*3/uL Low 150-450 [facility] Potassium measurementOrdered By: Estefany Huerta on 10-23-2024 Potassium [Moles/Vol] 3.6 mmol/L 3.5-5.1 [facility] RBC Auto (Bld) [#/Vol]Ordere d By: Estefany Huerta on 10-23-2024 RBC (Bld) [#/Vol] 5.14 10*6/uL 4.2-5.4 [facility] Serum anion gap measurementO rdered By: Estefany Huerta on 10-23-2024 Anion gap [Moles/Vol] 5 mmol/L 5-15 [facility] Serum globulin measurementOr dered By: Estefany Huerta on 10-23-2024 Globulin (S) [Mass/Vol] 3.1 g/dL 2.2-4.2 [facility] Serum or plasma alanine alonzo otransferase (ALT) measurementOrdered By: Estefany Huerta on 10-23-2024 ALT [Catalytic activity/Vol] 23 U/L 13-56 [facility] Serum or plasma albumin josette urement (mass/volume)Ordered By: Estefany Huerta on 10-23-2024 Albumin [Mass/Vol] 3.6 g/dL 3.2-5.0 [facility] Serum or plasma alkaline hellen sphatase measurementOrdered By: Estefany Huerta on 10-23-2024 ALP [Catalytic activity/Vol] 98 U/L 45-117 [facility] Serum or plasma calcium josette urement (mass/volume)Ordered By: Estefany Huerta on 10-23-2024 Calcium [Mass/Vol] 10.3 mg/dL High 8.5-10.1 [facility] Serum or plasma creatinine m easurement (mass/volume)Ordered By: Estefany Huerta on 10-23-2024 Creatinine [Mass/Vol] 0.92 mg/dL 0.55-1.02 [facility] Comment on above: The validity of the calculated GFR & GFRAA in patients over 70 years has not been determined. Clinical correlation is essential. Serum or plasma urea nitroge n measurement (mass/volume)Ordered By: Estefany Huerta on 10-23-2024 Urea nitrogen [Mass/Vol] 21 mg/dL High 7-18 [facility] Sodium levelOrdered By: Meet Huerta on 10-23-2024 Sodium [Moles/Vol] 142 mmol/L 136-145 [facility] T4 Free Directon 10-23-2024 T4 FREE DIRECT 1.42 ng/dL Normal 0.76-1.46 [facility] Comment on above: Performed By: #### L 501.22978, L500.4050, L501.2450, L501.5200, L506.0400, L3300.0960, L501.9520, L100.0100 #### [facility] Laboratory [address] [facility]. [place], [place], [id number] TSH QnOrdered By: [facility] 10-23-2024 Thyroid Stimulating Hormone (TSH) 1.350 uIU/mL 0.358-3.740 [facility] Thyroid Stim Hormone (TSH)on 10-23-2024 TSH 1.350 uIU/mL Normal 0.358-3.740 [facility] Comment on above: Performed By: #### L 501.19158, L500.4050, L501.2450, L501.5200, L506.0400, L3300.0960, L501.9520, L100.0100 #### [facility] [address] [facility] [place], [place], [id number] Total proteinOrdered By: Isela Huerta on 10-23-2024 Protein [Mass/Vol] 6.7 g/dL 6.4-8.2 [facility] White blood cell (WBC) count Ordered By: Estefany Huerta on 10-23-2024 WBC (Bld) [#/Vol] 5.5 10*3/uL 4.4-11.0 [facility] Urgent Care Visit Reporton 1 11-10-2023 Urgent Care Visit Report [facility] [address], [address] [place] [address] OFFICE VISIT Date of Service: 09/09/24 MR#: [id number] Acct: [id number] Name: HALLIE GUZMAN Rep #: [id number] : 1950 Provider: ERIC Burgess Age/Sex: 74/F Location: [facility] Status: Signed Intake Vital Signs 06/15/24 06:21 [...] a dose pack (Medrol (Amado)) #21 tabs [id number]-ctonlznwf-itrj ocort 3.5 4 drp otic (ear) TID 10 days #10 mL 09/09/24 09/09/24 Rx mg-10,000 unit/mL-1 % ear drops,susp Have you fallen in the past year?: No Nurse's Note: Patient has a cold for about a week and now she is having Rt ear pain. [facility] Medical History (Updated 09/09/24 @ 12:06 [...] and sinu (more content not included)... Normal [facility] CNOVon 04-01-2024 CNOV Office Visit (NRMDN) HALLIE GUZMAN ([id number]) 1950 F Date Time Provider Department 04/01/24 [...] please feel free to send me a [employer] message or contact the office Try melatonin for sleep. Start with 3 mg at bedtime and increase as needed and tolerated every few days. No more than 9-12 mg per day. If there are any concerns before your next visit, please call or you can send a message through [employer]. You can also now schedule and select appointments through [employer]. MD Daina Hargrove Kristin, MD 04/03/2024 12:44 PM Signed [facility] - FOLLOW UP EVALUATION Cash Arias DO [address] [facility] [address] Dear Cash Arias DO: I had the [...] Glycinate or Mg Taurate. Calm, Pure Encapsulation, [employer]Co are reliable brands. Dose 250-300 mg and [...] once da (more content not included)... Normal [facility] Basophil percentageOrdered B y: Bridger Friend on 12-17-2023 Creatinine [Mass/Vol] 1.0 mg/dL 0.55-1.02 [facility] Laboratory - Chemistry and C hemistry - challengeOrdered By: Bridger Lanier on 12-17-2023 GFR/1.73 sq M.predicted among non-blacks MDRD (S/P/Bld) [Vol rate/Area] 55.0000 mL/min/{1.73_m2} >60 [facility] Erythrocyte sedimentation ra teOrdered By: Bridger Lanier on 10-24-2023 ESR (Bld) [Velocity] 1 mm/h 0-30 [facility] No Panel InformationOrdered By: Bridger Lanier on 10-24-2023 C-Reactive Protein Extended Range 3.47 mg/L 0.0-3.0 [facility] Comment on above: C-Reactive Protein ( CRP) provides useful information for thediagnosis, therapy and monitoring of inflammatory processesand associated diseases. For the evaluation of Relative Riskfor Cardiovascular Disease, a High Sensitivity CRP (HSCRP)should be ordered. Serum or plasma gastrin josette urement (mass/volume)Ordered By: Bridger Lanier on 10-24-2023 Gastrin [Mass/Vol] 36 pg/mL 0-115 [facility] Comment on above: Siemens Immulite 200 0 Immunochemiluminometric assay (ICMA)Values obtained with different assay methods or kits cannotbe used interchangeably. Results cannot be interpreted asabsolute evidence of the presence or absence of malignantdisease.Performed at: - [address] [id number] Director: Bartolo Camacho MD, Phone: [phone] No Panel Informationon 10-19 Influenza Types A,B Rapid (Clinic) Negative [facility] POC SARS CoV-2 Antigen Negative [facility] Helicobacter pylori breath t est in pediatric patientOrdered By: Ella Turk on 09-04-2023 CO2 post dose urea Ql (Exhl gas) Negative Negative [facility] Comment on above: Performed at: [address] [id number] Director: Camron Tay PhD, Phone: [phone] Absolute lymphocyte countOrd ered By: Sarah Huynh on 08-07-2023 Lymphocytes Auto (Unsp spec) [#/Vol] 1.31 10*3/uL 0.83-4.51 [facility] Basophil percentageOrdered B y: Sarah Huynh on 08-07-2023 Basophils/100 WBC (Bld) 0.9 % 0-1 [facility] Bilirubin [Mass/Vol] 0.40 mg/dL 0.20-1.00 [facility] Comment on above: For patients on eltr ombopag therapy, use of Dimension Alta TBIL is not recommended. Chloride [Moles/Vol] 109 mmol/L 98-107 [facility] Cholesterol [Mass/Vol] 194 mg/dL <200 [facility] Comment on above: <200 mg/dL Desirable 200-240 mg/dL Borderline >240 mg/dL High Risk Eosinophils/100 WBC (Bld) 3.6 % 0-5 [facility] Glucose [Mass/Vol] 89 mg/dL 74-106 [facility] Neutrophils (Bld) [#/Vol] 3.3 10*3/uL 2.0-7.7 [facility] Neutrophils/100 WBC (Bld) 59.3 % 47-70 [facility] Potassium [Moles/Vol] 3.8 mmol/L 3.5-5.1 [facility] Protein [Mass/Vol] 6.3 g/dL 6.4-8.2 [facility] Sodium [Moles/Vol] 142 mmol/L 136-145 [facility] Triglyceride [Mass/Vol] 125 mg/dL <199 [facility] Comment on above: The drugs N-Acetylcy steine and Metamizole may falsely depress this assay.Serum Triglycerides Reference Interval Normal <150 mg/dL Borderline high 150 - 199 mg/dL High 200 - 499 mg/dL Very High > or = 500 mg/dL WBC (Bld) [#/Vol] 5.5 10*3/uL 4.4-11.0 [facility] Blood erythrocytes count (nu mber/volume)Ordered By: Sarah Huynh on 08-07-2023 RBC (Bld) [#/Vol] 5.04 10*6/uL 4.2-5.4 [facility] Blood hemoglobin measurement (mass/volume)Ordered By: Sarah Huynh on 08-07-2023 Hemoglobin (Bld) [Mass/Vol] 15.2 g/dL 12.0-15.0 [facility] Blood lymphocytes/100 leukoc ytesOrdered By: Sarah Huynh on 08-07-2023 Lymphocytes/100 WBC (Bld) 23.8 % 19-41 [facility] Blood monocytes/100 leukocyt esOrdered By: Sarah Huynh on 08-07-2023 Monocytes/100 WBC (Bld) 12.0 % 0-10 [facility] Blood platelet mean volumeOr dered By: Sarah Huynh on 08-07-2023 Platelet mean volume (Bld) [Entitic vol] 11.0 fL 6.2-12.0 [facility] Determination of erythrocyte mean corpuscular volume (MCV)Ordered By: Sarah Huynh on 08-07-2023 MCV (RBC) [Entitic vol] 96.0 fL 81-99 [facility] Hematocrit Auto (Bld) [Volum e fraction]Ordered By: Sarah Huynh on 08-07-2023 Hematocrit (Bld) [Volume fraction] 48.4 % 37-47 [facility] Laboratory - Chemistry and C hemistry - challengeOrdered By: Sarah Huynh on 08-07-2023 ALP [Catalytic activity/Vol] 89 U/L 45-117 [facility] ALT [Catalytic activity/Vol] 19 U/L 13-56 [facility] CO2 [Moles/Vol] 33.0 mmol/L 21.0-32.0 [facility] Globulin (S) [Mass/Vol] 2.9 g/dL 2.2-4.2 [facility] Urea nitrogen/Creatinine [Mass ratio] 23.7 mg/mg 10-20 [facility] Laboratory - Hematology and Cell countsOrdered By: Sarah Huynh on 08-07-2023 Erythrocyte distribution width (RBC) [Entitic vol] 47.6 fL 35.1-43.9 [facility] Erythrocyte distribution width (RBC) [Ratio] 13.4 % 11.6-14.6 [facility] Immature granulocytes/100 WBC (Bld) 0.400 % 0.0-0.9 [facility] Comment on above: IG% - Immature Granu locytes (promyelocytes, myelocytes and metamyelocytes) > 1% indicates that a LEFT SHIFT is Present. MCH (RBC) [Entitic mass] 30.2 pg 27.0-32.0 [facility] Nucleated RBC/100 WBC (Bld) [Ratio] 0 % 0-5 [facility] MCHC Auto (RBC) [Mass/Vol]Or dered By: Sarah Huynh on 08-07-2023 MCHC (RBC) [Mass/Vol] 31.4 g/dL 32-36 [facility] No Panel InformationOrdered By: Sarah Huynh on 08-07-2023 Estimated GFR (MDRD) Amer 76 mL/min >60 [facility] Comment on above: GFR Calc Estimated GFR (MDRD) Non-Af Amer 63 mL/min >60 [facility] Comment on above: Non- GFR Calc Thyroid Stimulating Hormone (TSH) 2.93 uIU/mL 0.358-3.74 [facility] Platelets bldOrdered By: Maximiliano Huynh on 08-07-2023 Platelets (Bld) [#/Vol] 120 10*3/uL 150-450 [facility] Serum or plasma albumin josette urement (mass/volume)Ordered By: Sarah Huynh on 08-07-2023 Albumin [Mass/Vol] 3.4 g/dL 3.2-5.0 [facility] Serum or plasma albumin/glob ulin mass ratioOrdered By: Sarah Huynh on 08-07-2023 Albumin/Globulin [Mass ratio] 1.2 {ratio} 0.9-2.4 [facility] Serum or plasma calcium josette urement (mass/volume)Ordered By: Sarah Huynh on 08-07-2023 Calcium [Mass/Vol] 9.4 mg/dL 8.5-10.1 [facility] Serum or plasma cholesterol in HDL measurement (mass/volume)Ordered By: Sarah Huynh on 08-07-2023 Cholesterol in HDL [Mass/Vol] 43 mg/dL >40 [facility] Comment on above: The drugs N-Acetylcy steine and Metamizole may falsely depress this assay. Reference Range HDL <40 mg/dL Low HDL Cholesterol HDL >or= 60 mg/dL High HDL Cholesterol Serum or plasma cholesterol in VLDL measurement (mass/volume)Ordered By: Sarah Huynh on 08-07-2023 Cholesterol in VLDL [Mass/Vol] 25 mg/dL 5-40 [facility] Serum or plasma creatinine m easurement (mass/volume)Ordered By: Sarah Huynh on 08-07-2023 Creatinine [Mass/Vol] 0.93 mg/dL 0.55-1.02 [facility] Comment on above: The validity of the calculated GFR & GFRAA in patients over 70 years has not been determined. Clinical correlation is essential. Serum or plasma low density lipoprotein (LDL) cholesterol measurement (mass/volume)Ordered By: Sarah Huynh on 08-07-2023 Cholesterol in LDL [Mass/Vol] 126 mg/dL 0-130 [facility] Serum or plasma urea nitroge n measurement (mass/volume)Ordered By: Sarah Huynh on 08-07-2023 Urea nitrogen [Mass/Vol] 22 mg/dL 7-18 [facility] Thin prep Papanicolaou smear with manual screeningOrdered By: Sarah Huynh on 08-07-2023 Thin prep Papanicolaou smear with manual screening 8 U/L 15-37 [facility] Thin prep Papanicolaou smear with manual screening 0 5-15 [facility] Laboratory - Microbiology an d Antimicrobial susceptibilityon 06-28-2023 S. pyogenes Ag IA Ql (Unsp spec) Negative [facility] CNOVon 04-08-2023 CNOV Office Visit (NEADFV ) HALLIE GUZMAN ([id number]) 1950 F Date Time Provider Department 04/08/23 10:00 AM HEATHER SNEED During your visit today, we recorded the following information about you: Pulse Blood pressure Weight Height 92/minute 127/82 74.5 kg 1.626 m Heather Sneed MD 04/08/2023 10:40 AM Signed [facility] General Neurology Follow up/ Established patient visit Individuals who were included in, or assisted with the encounter were: Hallie Guzman Heather Sneed MD Chief Complaint/Issues: Hallie Guzman is a 72 year old R handed female w PMH HTN, HLP, hypothyroidism, seen in the [facility] for [facility]rology for: RLS, essential tremor and neuropathy Most Recent Neurological Assessment and Plan: Last Filed Values Date of Most Recent Assessment and Plan 12/24/22 Specialty General Neurology Assessment Hallie Guzman is a 72 year old R handed female w PMH HTN, HLP, hypothyroidism, seen in the [facility] General Neurology for: 1. RLS, essential tremor [...] not on aspirin. She will see a expenditure requisition clerk next week. RF, ANTONETTE, MMA, copper, syphilis, [...] 127/82 Pulse 92 Ht 162.6 cm (5' 4") Wt 74.5 kg (164 lb 4.8 oz) [...] General Neurology, Heather Sneed MD ASSESSMENT Hallie Dileep Guzman is a 72 year old R handed female w PMH HTN, HLP, hypothyroidism, seen in the [facility] for: 1. RLS, es (more content not included)... [facility] SADAFHALLIE Falk ([id number]) 1950 F Date Time Provider Department 04/08/23 HEATHER SNEED During your visit today, we recorded the following information about you: Edyta Membreno 04/08/2023 3:20 PM Signed Received fax from [facility] with Carotid Duplex Scan dated 01/10/23. Scanned into [employer]. Prabha Mai RN 04/08/2023 4:03 PM Signed Carotid Duplex study results in scanned documents for your review. Allergies As of Date: 04/08/2023 Noted Allergy Reaction LIPITOR (ATORVASTATIN CALCIUM) 12/17/2006 Comments: myalgia SULFAMETHOXAZOLE 11/01/2020 14 - Other: See Comments Comments: Very Shaky Date Reviewed: 04/08/2023 Reviewed by: Keiry Boyle MA - Fully Assessed Reason for Visit: Received Outside Medical Records [[id number]] Prescriptions as of 06/13/2023 - gabapentin (NEURONTIN) [...] Status:Closed by EDYTA MEMBRENO on 06/13/23 Normal [facility] Culture, urineOrdered By: Andriy Amaya on 03-14-2023 Bacteria identified Cx Nom (U) Presumptive E. coli [facility] Culture, urineOrdered By: Andriy Amaya on 03-12-2023 Bacteria identified Cx Nom (U) Presumptive E. coli [facility] A-Tocopherol Vit E SerPl-mCn con 12-24-2022 Alpha tocopherol [Mass/Vol] 26.5 mg/L High 6.0-23.0 [facility] Comment on above: Order Comment: Speci men Type: BLOOD SPECIMEN Ordering Facility: [facility] Address: [address] [place] [id number] Performed By: #### 1 823-4 #### [facility] CLIA [id number] [facility] Alpha tocopherol [Mass/Vol]o n 12-24-2022 Beta+gamma tocopherol [Mass/Vol] 0.5 mg/L Normal 0.3-3.2 [facility] Comment on above: Order Comment: Speci men Type: BLOOD SPECIMEN Ordering Facility: [facility] Address: [address] [place], [place] [address] Result Comment: This test was developed and its performance characteristics determined by [facility] ([facility]). It has not been cleared or approved by the FDA. [facility] is regulated under CLIA as qualified to perform high-complexity testing. This test is used for clinical purposes. It should not be regarded as investigational or for research. Performed By: #### 1 823-4 #### [facility] CLIA [id number] [address] [place], [place] [id number] [facility] CNOVon 12-24-2022 CNOV Office Visit (NEADFV ) HALLIE GUZMAN ([id number]) 1950 F Date Time Provider Department 12/24/22 1:30 PM HEATHER SNEED NELATESHAFV During your visit today, we recorded the following information about you: Temperature Pulse Blood pressure Weight 97.6 degrees 72/minute 139/74 72.8 kg Heather Sneed MD 12/24/2022 3:45 PM Addendum [facility] New Patient Evaluation Consulting Provider: SELF Individuals who were included in, or assisted with the encounter were: Hallie Sneed MD Chief Complaint/Issues: Hallie Guzman is a 72 year old R handed female w PMH HTN, HLP, hypothyroidism, seen in the [facility] for: RLS, essential [...] PMH HTN, HLP, hypothyroidism, seen in the [facility] for: 1. RLS, [...] on file. (more content not included)... Normal [facility] COPPER BLOODon 12-24-2022 Copper [Mass/Vol] 119 ug/dL Normal 80-155 [facility] Comment on above: Order Comment: Speci men Type: BLOOD SPECIMEN Ordering Facility: [facility] Address: [address] [place] [address] [place] [address] Result Comment: This test was developed and its performance characteristics determined by [facility] ([facility]). It has not been cleared or approved by the FDA. [facility] is regulated under CLIA as qualified to perform high-complexity testing. This test is used for clinical purposes. It should not be regarded as investigational or for research. Performed By: #### 5 0190-8, 2284-8 #### [facility] CLIA [id number] [address] [place] [address] OF [place] Centromere Ab IF Ql (S)on Centromere Ab Qn (S) <0.2 Normal <1.0 [facility] Comment on above: Order Comment: Speci men Type: URINE SPECIMEN Ordering Facility: [facility] Address: [address] [place] [address] Result Comment: Anti -centromere antibody is used as in aid in diagnosis of systemic sclerosis. Clinical correlation is required. Test Methodology: Multiplex flow immunoassay. Performed By: #### L [id number] #### [facility] CLIA [id number] [address] [place] [address] [place] CENTROMERE AB QUAL Negative Normal Negative [facility] Comment on above: Order Comment: Speci men Type: URINE SPECIMEN Ordering Facility: [facility] Address: [address] [place] [address] Performed By: #### L [id number] #### [facility] CLIA [id number] [address] [place] [address] [place] Chromatin Ab Qnon 12-24-2022 CHROMATIN AB QUAL Negative Normal Negative [facility] Comment on above: Order Comment: Speci men Type: URINE SPECIMEN Ordering Facility: [facility] Address: [address] [place] [address] Performed By: #### L [id number] #### [facility] CLIA [id number] [address] [place] [address] [place] Chromatin Ab SerPl-aCncon Chromatin Ab Qn <0.2 Normal <1.0 [facility] Comment on above: Order Comment: Speci men Type: URINE SPECIMEN Ordering Facility: [facility] Address: [address] [place] [address] Result Comment: Test Methodology: Multiplex flow immunoassay. Performed By: #### L [id number] #### [facility] CLIA [id number] [address] [place] [address] [place] ANTONETTE Jo1 Ab Ser-aCncon 2022 Dara-1 extractable nuclear Ab Qn (S) <0.2 Normal <1.0 [facility] Comment on above: Order Comment: Speci men Type: URINE SPECIMEN Ordering Facility: [facility] Address: [address] [place] [address] Performed By: #### L [id number] #### [facility] CLIA [id number] [address] [place] [address] [place] ANTONETTE SIEVE REPAIRER Ab Ser-aCncon 2022 Ribonucleoprotein extractable nuclear Ab Qn (S) <0.2 Normal <1.0 [facility] Comment on above: Order Comment: Speci men Type: URINE SPECIMEN Ordering Facility: [facility] Address: [address] [place] [address] Performed By: #### L [id number] #### [facility] CLIA [id number] [address] [place] [address] OF [place] ANTONETTE SM IgG Ser-aCncon 2022 Roberts extractable nuclear IgG Qn (S) <0.2 Normal <1.0 [facility] Comment on above: Order Comment: Speci men Type: URINE SPECIMEN Ordering Facility: [facility] Address: [address] [place] [address] Performed By: #### L [id number] #### [facility] CLIA [id number] [address] [place] [address] OF [place] ANTONETTE SS-A Ab Ser-aCncon 12-24 Sjogrens syndrome-A extractable nuclear Ab Qn (S) <0.2 Normal <1.0 [facility] Comment on above: Order Comment: Speci men Type: URINE SPECIMEN Ordering Facility: [facility] Address: [address] [place] [address] Result Comment: Test Methodology: Multiplex flow immunoassay. Performed By: #### L [id number] #### [facility] CLIA [id number] [address] [place] [address] [place] ANTONETTE SS-B Ab Ser-aCncon 12-24 Sjogrens syndrome-B extractable nuclear Ab Qn (S) <0.2 Normal <1.0 [facility] Comment on above: Order Comment: Speci men Type: URINE SPECIMEN Ordering Facility: [facility] Address: [address] [address] Result Comment: Anti -SSB (anti-La) antibody is used as an aid in diagnosis of a variety of systemic autoimmune diseases, especially for Sjogren's syndrome and systemic lupus erythematosus. Clinical correlation is required. Test Methodology: Multiplex flow immunoassay. Performed By: #### L [id number] #### [facility] CLIA [id number] [address] [place] [address] [place] FOLATE SERUMon 12-24-2022 Folate [Mass/Vol] 10.5 ng/mL >4.7 ng/mL [facility] Folate SerPl-mCncon 12-25-19 Folate [Mass/Vol] 10.5 ng/mL Normal >4.7 [facility] Comment on above: Order Comment: Speci men Type: BLOOD SPECIMEN Ordering Facility: [facility] Address: [address] [address] Performed By: #### 5 0190-8, 2284-8 #### [facility] CLIA [id number] OF [place] HIV 1+2 Ab IA Qlon HIV 1 and 2 Ab IA.rapid Nom Normal [facility] Comment on above: Order Comment: Speci men Type: BLOOD SPECIMEN Ordering Facility: [facility] Address: [address] [address] Result Comment: Test not indicated. Performed By: #### 3 1201-7, 03183-6 #### [facility] CLIA [id number] [address] [place] [address] OF [facility] HIV 1+2 Ab+HIV1 p24 Ag IA Ql Non-Reactive Normal Nonreactive [facility] Comment on above: Order Comment: Speci men Type: BLOOD SPECIMEN Ordering Facility: [facility] Address: [address] [address] Performed By: #### 3 1201-7, 16164-7 #### [facility] CLIA [id number] [address] [place] [address] [place] HIVINT Normal [facility] Comment on above: Order Comment: Speci men Type: BLOOD SPECIMEN Ordering Facility: [facility] Address: [address] [place] [address] Result Comment: No e vidence of HIV-1 or HIV-2 infection. Should recent infection be suspected, repeat testing may be considered 2-3 weeks after this draw. [place] Rev. Code 3701.243(E): This information has been [...] or diagnoses. Performed By: #### 3 1201-7, 13222-6 #### [facility] CLIA [id number] [address] [place] [address] [place] Iron and Iron binding capaci ty panelon 12-24-2022 Iron [Mass/Vol] 103 ug/dL Normal 41-186 [facility] Comment on above: Order Comment: Speci men Type: BLOOD SPECIMEN Ordering Facility: [facility] Address: [address] [address] Performed By: #### 5 0190-8, 8 #### [facility] CLIA [id number] [address] [place] [address] [place] Iron binding capacity [Mass/Vol] 270 ug/dL Normal 232-386 [facility] Comment on above: Order Comment: Speci men Type: BLOOD SPECIMEN Ordering Facility: [facility] Address: [address] [place] [address] Performed By: #### 5 0190-8, 2283-8 #### [facility] CLIA [id number] [address] [place] [address] [place] Iron/TIBC [Molar ratio] 38.1 % Normal 20.0-55.0 [facility] Comment on above: Order Comment: Gail mallory Type: BLOOD SPECIMEN Ordering Facility: [facility] Address: [address] [place] [address] Performed By: #### 5 0190-8, 2284-8 #### [facility] CLIA [id number] [address] [place] [address] [place] Iron [Mass/Vol] 103 ug/dL 41 - 186 ug/dL [facility] Iron binding capacity [Mass/Vol] 270 ug/dL 232 - 386 ug/dL [facility] Iron/TIBC [Molar ratio] 38.1 % 20.0 - 55.0 % [facility] Dara-1 extractable nuclear Ab Qn (S)on 12-24-2022 DARA 1 ANTIBODY QUAL Negative Normal Negative [facility] Comment on above: Order Comment: Gail mallory Type: URINE SPECIMEN Ordering Facility: [facility] Address: [address] [place] [address] Result Comment: Anti -DARA-1 antibody is used as an aid in diagnosis of polymyositis and dermatomyositis especially with pulmonary involvement. A negative result cannot rule out polymyositis or dermatomyositis. Clinical correlation is required. Test Methodology: Multiplex flow immunoassay. Performed By: #### L [id number] #### [facility] CLIA [id number] [address] [facility] [id number] [place] [address] [place] Methylmalonate SerPl-sCncon 12-24-2022 Methylmalonate [Moles/Vol] 172 nmol/L Normal 79-376 [facility] Comment on above: Order Comment: Gail mohamud Type: BLOOD SPECIMEN Ordering Facility: [facility] Address: [address] [place] [address] Result Comment: This test was developed and its performance characteristics determined by [facility]'s Juan JCharmaine [facility] ([facility]). It has not been cleared or approved by the FDA. [facility] is regulated under CLIA as qualified to perform high-complexity testing. This test is used for clinical purposes. It should not be regarded as investigational or for research. Performed By: #### 1 3964-2 #### [facility] CLIA [id number] [address] [place] [address] [place] Nuclear Ab IA Ql (S)on 12-24 VICK[facility] BY EIA, QUAL Negative Normal Negative [facility] Comment on above: Order Comment: Specjocelyne mallory Type: BLOOD SPECIMEN Ordering Facility: [facility] Address: [address] [place] [address] Result Comment: The qualitative antinuclear antibody screen test performed using enzyme immunoassay including the following antigens: dsDNA, histones, SS-A, SS-B, Sm, Sm/SIEVE REPAIRER, Scl-70, Dara-1, and centromeric antigens. Performed By: #### 5 0190-8, 2284-8 #### [facility] CLIA [id number] [address] [place] [address] [place] PROTEIN ELECTROPHORESIS SERU M (P)on 12-24-2022 Albumin [Mass/Vol] 4.22 g/dL Normal 3.43-5.41 [facility] Comment on above: Order Comment: Gail mallory Type: BLOOD SPECIMEN Ordering Facility: [facility] Address: [address] [place] [address] Performed By: #### L [id number] #### [facility] CLIA [id number] [address] [place] [address] [place] Alpha 1 globulin Elph [Mass/Vol] 0.28 g/dL Normal 0.18-0.43 [facility] Comment on above: Order Comment: Gail mallory Type: BLOOD SPECIMEN Ordering Facility: [facility] Address: [address] [place] [address] Performed By: #### L [id number] #### [facility] CLIA [id number] [address] [place] [address] [place] Alpha 2 globulin Elph [Mass/Vol] 0.78 g/dL Normal 0.42-0.98 [facility] Comment on above: Order Comment: Speci men Type: BLOOD SPECIMEN Ordering Facility: [facility] Address: [address] [address] Performed By: #### L [id number] #### [facility] CLIA [id number] [address] [place] Beta globulin Elph [Mass/Vol] 0.67 g/dL Normal 0.61-1.17 [facility] Comment on above: Order Comment: Speci men Type: BLOOD SPECIMEN Ordering Facility: [facility] Address: [address] Performed By: #### L [id number] #### [facility] CLIA [id number] [address] [place] [address] [place] Gamma globulin Elph [Mass/Vol] 0.54 g/dL Normal 0.53-1.51 [facility] Comment on above: Order Comment: Speci men Type: BLOOD SPECIMEN Ordering Facility: [facility] Address: [address] [place] [address] Performed By: #### L [id number] #### [facility] CLIA [id number] [address] [place] [address] [place] M-PROTEIN LOCATION Normal [facility] Comment on above: Order Comment: Speci men Type: BLOOD SPECIMEN Ordering Facility: [facility] Address: [address] [place], [place] [id number] Result Comment: Not Applicable. Performed By: #### L [id number] #### [facility] CLIA [id number] [address] [place] [address] [place] Protein Fractions [Interp] No definitive M protein is identified on protein electrophoresis. Normal No definitive M protein is identified on protein electrophore sis. [facility] Comment on above: Order Comment: Speci men Type: BLOOD SPECIMEN Ordering Facility: [facility] Address: [address] [place], [place] [address] Performed By: #### L [id number] #### [facility] CLIA [id number] [facility] [address] Protein.monoclonal Elph [Mass/Vol] 0.00 g/dL Normal <=0.00 [facility] Comment on above: Order Comment: Speci men Type: BLOOD SPECIMEN Ordering Facility: [facility] Address: [address] [place] [address] Performed By: #### L [id number] #### [facility] CLIA [id number] [address] [place] [address] SPE STAFF REVIEW Reviewed by Dr. Mariela Mai MD [facility] Comment on above: Order Comment: Speci men Type: BLOOD SPECIMEN Ordering Facility: [facility] Address: [address] [place] [address] Performed By: #### L [id number] #### [facility] CLIA [id number] [address] [place] [address] [place] Prot SerPl-mCncon 12-24-2022 Protein [Mass/Vol] 6.5 g/dL Normal 6.3-8.0 [facility] Comment on above: Order Comment: Speci men Type: BLOOD SPECIMEN Ordering Facility: [facility] Address: [address] [place] [address] Performed By: #### 1 1572-5, 2885-2 #### [facility] CLIA [id number] [address] [place] [address] Prot Ur-mCncon 12-24-2022 Protein (U) [Mass/Vol] 7 mg/dL Normal 0-20 [facility] Comment on above: Order Comment: Speci men Type: BLOOD SPECIMEN Ordering Facility: [facility] Address: [address] [place] [address] Performed By: #### 5 0190-8, 2284-8 #### [facility] CLIA [id number] [address] [place] [address] [place] RHEUMATOID FACTOR BLon 12-24 Rheumatoid factor Qn <16 IU/mL [facility] Reagin and Treponema pallidu m IgG and IgM [Interp]on 12-24-2022 SYPHILIS INTERPRETATION Cannot exclude recent Treponemal infection if specimen collected within 7-10 days after appearance of suspect lesions or 2-3 weeks after an exposure. Clinical correlation is required. Normal [facility] Comment on above: Order Comment: Speci men Type: URINE SPECIMEN Ordering Facility: [facility] Address: [address] [place] [address] Performed By: #### L [id number] #### [facility] CLIA [id number] [address] [place] [address] [place] T. pallidum IgG+IgM IA Ql (S) Non-Reactive Normal Nonreactive [facility] Comment on above: Order Comment: Speci men Type: URINE SPECIMEN Ordering Facility: [facility] Address: [address] [place] [address] Performed By: #### L [id number] #### [facility] CLIA [id number] [address] [place] [address] [place] Rheumatoid fact SerPl-aCncon 12-24-2022 Rheumatoid factor Qn [IU]/mL Normal <16 [facility] Comment on above: Order Comment: Speci men Type: BLOOD SPECIMEN Ordering Facility: [facility] Address: [address] [place] [address] Performed By: #### 1 1572-5, 2885-2 #### [facility] CLIA [id number] [address] [place] [address] [place] Ribonucleoprotein extractabl e nuclear Ab Qn (S)on 12-24-2022 ANTI-SIEVE REPAIRER QUAL Negative Normal Negative [facility] Comment on above: Order Comment: Speci men Type: URINE SPECIMEN Ordering Facility: [facility] Address: [address] [place] [address] Performed By: #### L [id number] #### [facility] CLIA [id number] [address] [place] [address] RIBOSOMAL SIEVE REPAIRER QUAL Negative Normal Negative [facility] Comment on above: Order Comment: Speci men Type: URINE SPECIMEN Ordering Facility: [facility] Address: [address] [place] [address] Result Comment: Anti -Ribosomal RNA (Ribosomal P) antibody is used as an aid in diagnosis of systemic autoimmune diseases especially systemic lupus erythematosus and mixed connective tissue disease. Cross-reactivity with Anti-roberts antibody is not uncommon. Clinical correlation is required. Test Methodology: Multiplex flow immunoassay. Performed By: #### L [id number] #### [facility] CLIA [id number] [address] [place] [address] [place] SCL-70 extractable nuclear I gG IA Qn (S)on 12-24-2022 SCLERODERMA AB QUAL Negative Normal Negative [facility] Comment on above: Order Comment: [facility]i [facility] Type: URINE SPECIMEN Ordering Facility: [facility] Address: [address] [place] [address] Performed By: #### L [id number] #### [facility] CLIA [id number] [address] [place] [address] [place] SCLERODERMA IGG AB 0.2 AI Normal <1.0 [facility] Comment on above: Order Comment: Speci men Type: URINE SPECIMEN Ordering Facility: [facility] Address: [address] [place] [address] Result Comment: Scl- 70/Scleroderma antibody test is used as an aid in diagnosis of systemic sclerosis especially the diffuse cutaneous form. A negative result cannot rule out systemic sclerosis. The final interpretation should consider clinical picture and other test results such as anti-centromere antibody. Test Methodology: Multiplex flow immunoassay. Performed By: #### L [id number] #### [facility] CLIA [id number] [address] [place] [address] [place] Sjogrens syndrome-A extracta ble nuclear Ab Qn (S)on 12-24-2022 SSA ANTIBODY QUAL Negative Normal Negative [facility] Comment on above: Order Comment: Speci men Type: URINE SPECIMEN Ordering Facility: [facility] Address: [address] [place] [address] Performed By: #### L [id number] #### [facility] CLIA [id number] [address] [place] [address] [place] Sjogrens syndrome-B extracta ble nuclear Ab Qn (S)on 12-24-2022 SSB ANTIBODY QUAL Negative Normal Negative [facility] Comment on above: Order Comment: Speci men Type: URINE SPECIMEN Ordering Facility: [facility] Address: [address] [place] [address] Performed By: #### L [id number] #### [facility] CLIA [id number] [address] [place] [address] [place] Roberts extractable nuclear Ig G Qn (S)on 12-24-2022 SM ANTIBODY QUAL Negative Normal Negative [facility] Comment on above: Order Comment: Speci men Type: URINE SPECIMEN Ordering Facility: [facility] Address: [address] [place] [address] Result Comment: Anti -Sm (Roberts) antibody is used as an aid in diagnosis of systemic lupus erythematosus and its presence is associated with renal disease. A negative result cannot rule out systemic lupus erythematosus. Clinical correlation is required. Test Methodology: Multiplex flow immunoassay. Performed By: #### L [id number] #### [facility] CLIA [id number] [address] [place] [address] [place] URINE PROTEIN ELECTROPHORESI S RANDOM (P)on 12-24-2022 Albumin Elph (U) [Mass fraction] 38.25 % Normal [facility] Comment on above: Order Comment: Speci men Type: URINE SPECIMEN Ordering Facility: [facility] Address: [address] [place] [address] Performed By: #### L [id number] #### [facility] CLIA [id number] [address] [place] [address] [place] Alpha 1 globulin Elph (U) [Mass fraction] 9.45 % Normal [facility] Comment on above: Order Comment: Speci men Type: URINE SPECIMEN Ordering Facility: [facility] Address: [address] [address] Performed By: #### L [id number] #### [facility] CLIA [id number] [address] [place] Alpha 2 globulin Elph (U) [Mass fraction] 19.02 % [facility] Comment on above: Order Comment: Speci men Type: URINE SPECIMEN Ordering Facility: [facility] Address: [address] [address] Performed By: #### L [id number] #### [facility] CLIA [id number] [address] [place] [address] Beta globulin Elph (U) [Mass fraction] 17.74 % [facility] Comment on above: Order Comment: Speci men Type: URINE SPECIMEN Ordering Facility: [facility] Address: [address] [place] [address] Performed By: #### L [id number] #### [facility] CLIA [id number] [address] [place] [address] [place] Gamma globulin Elph (U) [Mass fraction] 15.53 % [facility] Comment on above: Order Comment: Speci men Type: URINE SPECIMEN Ordering Facility: [facility] Address: [address] [place], [place] [id number] Performed By: #### L [id number] #### [facility] CLIA [id number] [address] [place] [address] [place] INTERPRETATION COMMENT FOR PROTEIN ELECTROPHORESIS The absence of M-protein on urine protein electrophoresis does not entirely exclude the presence of monoclonal gammopathy in urine. Monoclonal protein analysis (immunofixation), a more definitive test to exclude monoclonal gammopathy, may be requested on this specimen if clinically indicated. [facility] Comment on above: Order Comment: Speci men Type: URINE SPECIMEN Ordering Facility: [facility] Address: [address] [place] [address] Performed By: #### L [id number] #### [facility] CLIA [id number] [address] [place] [address] [place] Protein Fractions Elph Khai (U) [Interp] No definitive M protein is identified on protein electrophoresis. Normal No definitive M protein is identified on protein electrophore sis. [facility] Comment on above: Order Comment: Speci men Type: URINE SPECIMEN Ordering Facility: [facility] Address: [address] [place] [address] Performed By: #### L [id number] #### [facility] [place] [id number] [address] [place] [address] STAFF REVIEW (URINE ELECTRO) Reviewed by Dr. Senait Mai MD [facility] Comment on above: Order Comment: Speci men Type: URINE SPECIMEN Ordering Facility: [facility] Address: [address] [place] [address] Performed By: #### L [id number] #### [facility] CLIA [id number] [address] [place] [address] No Panel InformationOrdered By: Pearl Shepard on 10-04-2022 Miscellaneous Test See comment [facility] Comment on above: TEST RESULT LIMITSAN CA [...] up testing of positive sera with both ND-3 and MPO-ANCA enzyme immunoassays. As many as 5% serum samples are positive only by EIA.Ref. AM J Clin Pathol 1999;111:507-513.Atypical pANCA 1:20 High titer Neg:<1:20The atypical pANCA pattern has been observed in a significantpercentage of patients with ulcerative colitis, primary sclerosing cholangitis and autoimmune hepatitis. ____ TESTING PERFORMED AT [facility]. ORIGINAL REPORT ON FILE IN LAB CONTAINS ADDITIONAL TEST SITE INFORMATION. INR in Blood by Coagulation assayOrdered By: Pearl Shepard on 09-10-2022 INR Coag (Bld) [Relative time] 1.0 {INR} [facility] - Chemistry and C hemistry - challengeOrdered By: Pearl Shepard on 09-10-2022 Amylase [Catalytic activity/Vol] 18 U/L 5-55 [facility] - CoagulationOrde red By: Pearl Shepard on 09-10-2022 PT Coag (PPP) [Time] 13.1 s 11.7-14.9 [facility] Serum mitochondria antibody detectionOrdered By: Pearl Shepard on 09-10-2022 Mitochondria Ab Ql (S) <20.0 Units 0.0-20.0 [facility] Comment on above: Negative 0.0 - 20.0 Equivocal 20.1 - 24.9 Positive >24.9Mitochondrial (M2) Antibodies are found in 90-96% ofpatients with primary biliary cirrhosis.Performed at: [address] [id number] Director: Camron Tay PhD, Phone: [phone] Serum or plasma actin IgG an tibody assay (units/volume)Ordered By: Pearl Shepard on 09-10-2022 Actin IgG Qn 4 Units 0-19 [facility] Comment on above: Negative 0 - 19 Weak positive 20 - 30 Moderate to strong positive >30 Actin Antibodies are found in 52-85% of patients with autoimmune hepatitis or chronic active hepatitis and in 22% of patients with primary biliary cirrhosis.Performed at: [facility] [employer] [id number] Director: Camron Tay PhD, Phone: [phone] Basophil percentageOrdered B y: Courtney Dillard on 08-07-2022 Bilirubin [Mass/Vol] 0.30 mg/dL 0.20-1.00 [facility] Comment on above: For patients on eltr ombopag therapy, use of Dimension Alta TBIL is not recommended. Chloride [Moles/Vol] 109 mmol/L 98-107 [facility] Glucose [Mass/Vol] 92 mg/dL 74-106 [facility] Potassium [Moles/Vol] 3.5 mmol/L 3.5-5.1 [facility] Protein [Mass/Vol] 6.8 g/dL 6.4-8.2 [facility] Sodium [Moles/Vol] 142 mmol/L 136-145 [facility] Laboratory - Chemistry and C hemistry - challengeOrdered By: Courtney Dillard on 08-07-2022 ALP [Catalytic activity/Vol] 97 U/L 45-117 [facility] ALT [Catalytic activity/Vol] 22 U/L 13-56 [facility] CO2 [Moles/Vol] 27.0 mmol/L 21.0-32.0 [facility] Cobalamin (Vitamin B12) [Mass/Vol] 713 pg/mL 211-911 [facility] Globulin (S) [Mass/Vol] 3.0 g/dL 2.2-4.2 [facility] Urea nitrogen/Creatinine [Mass ratio] 26.2 mg/mg 10-20 [facility] No Panel InformationOrdered By: Courtney Dillard on 08-07-2022 Estimated GFR (MDRD) Amer 96 mL/min >60 [facility] Comment on above: GFR Calc Estimated GFR (MDRD) Non-Af Amer 79 mL/min >60 [facility] Comment on above: Non- GFR Calc Vitamin D 25-Hydroxy 45.1 ng/mL [facility] Comment on above: Vitamin D 25(OH) Sta tus Range Deficiency <20 ng/mL (50nmol/L) Insufficiency 20 - 30 ng/mL (50 - 75 nmol/L) Sufficiency 30 - 100 ng/mL (75 - 250 nmol/L) Toxicity >100 ng/mL (>250 nmol/L) Serum or plasma albumin josette urement (mass/volume)Ordered By: Courtney Dillard on 08-07-2022 Albumin [Mass/Vol] 3.8 g/dL 3.2-5.0 [facility] Serum or plasma albumin/glob ulin mass ratioOrdered By: [facility] on 08-07-2022 Albumin/Globulin [Mass ratio] 1.3 {ratio} 0.9-2.4 [facility] Serum or plasma calcium josette urement (mass/volume)Ordered By: Courtney Nishant on 08-07-2022 Calcium [Mass/Vol] 9.6 mg/dL 8.5-10.1 [facility] Serum or plasma creatinine m easurement (mass/volume)Ordered By: [facility]22 Creatinine [Mass/Vol] 0.76 mg/dL 0.55-1.02 [facility] Comment on above: The validity of the calculated GFR & GFRAA in patients over 70 years has not been determined. Clinical correlation is essential. Serum or plasma urea nitroge n measurement (mass/volume)Ordered By: Courtney [facility] on 08-07-2022 Urea nitrogen [Mass/Vol] 20 mg/dL 7-18 [facility] Thin prep Papanicolaou smear with manual screeningOrdered By: [facility] Nishant on 08-07-2022 Thin prep Papanicolaou smear with manual screening 14 U/L 15-37 [facility] Thin prep Papanicolaou smear with manual screening 6 5-15 [facility] Whole blood hemoglobin A1c/t otal hemoglobin ratio (mass fraction)Ordered By: Courtney Dillard on 08-07-2022 HbA1c (Bld) [Mass fraction] 5.2 % 3.8-5.6 [facility] Comment on above: Normal < 5.7 % Predi abetic 5.7 - 6.4 % Diabetic >or= 6.5 % Please note range changes. Basophil percentageOrdered B y: Dr. Roberts on 08-01-2022 Cholesterol [Mass/Vol] 194 mg/dL <200 [facility] Comment on above: <200 mg/dL Desirable 200-240 mg/dL Borderline >240 mg/dL High Risk Triglyceride [Mass/Vol] 130 mg/dL <199 [facility] Comment on above: The drugs N-Acetylcy steine and Metamizole may falsely depress this assay.Serum Triglycerides Reference Interval Normal <150 mg/dL Borderline high 150 - 199 mg/dL High 200 - 499 mg/dL Very High > or = 500 mg/dL No Panel InformationOrdered By: Dr. Roberts on 08-01-2022 Thyroid Stimulating Hormone (TSH) 2.48 uIU/mL 0.358-3.74 [facility] Serum or plasma cholesterol in HDL measurement (mass/volume)Ordered By: Dr. Roberts on 08-01-2022 Cholesterol in HDL [Mass/Vol] 43 mg/dL >40 [facility] Comment on above: The drugs N-Acetylcy steine and Metamizole may falsely depress this assay. Reference Range HDL <40 mg/dL Low HDL Cholesterol HDL >or= 60 mg/dL High HDL Cholesterol Serum or plasma cholesterol in VLDL measurement (mass/volume)Ordered By: Dr. Roberts on 08-01-2022 Cholesterol in VLDL [Mass/Vol] 26 mg/dL 5-40 [facility] Serum or plasma low density lipoprotein (LDL) cholesterol measurement (mass/volume)Ordered By: Dr. Roberts on 08-01-2022 Cholesterol in LDL [Mass/Vol] 125 mg/dL 0-130 [facility] No Panel InformationOrdered By: Bridger Lanier on 07-18-2022 Miscellaneous Test See comment [facility] Comment on above: TEST RESULT LIMITSIB [...] developed and its performance characteristics determined by [employer]. It has not been cleared or approved by the Food and Drug Administration. The FDA has determined that such clearance or approval is not necessary.Atypical pANCA Negative NegativeCommentsPattern is not suggestive of Inflammatory Bowel Disease. __ TESTING PERFORMED AT [facility]. ORIGINAL REPORT ON FILE IN LAB CONTAINS ADDITIONAL TEST SITE INFORMATION. Absolute lymphocyte countOrd ered By: Bridger Lanier on 07-02-2022 Lymphocytes Auto (Unsp spec) [#/Vol] 1.14 10*3/uL 0.83-4.51 [facility] Albumin Elph [Mass/Vol]Order ed By: Bridger Lanier on 07-02-2022 Albumin [Mass/Vol] 4.0 g/dL 2.9-4.4 [facility] Atypical perinuclear antineu trophil cytoplasmic antibodies measurementOrdered By: Bridger Lanier on 07-02-2022 Neutrophil cytoplasmic Ab.perinuclear.atypica l IF (S) [Titer] 1:20 titer Neg:<1:20 [facility] Comment on above: The atypical pANCA p attern has been observed in asignificant percentage of patients with ulcerative colitis,primary sclerosing cholangitis and autoimmune hepatitis. Basophil percentageOrdered B y: Bridger Lanier on 07-02-2022 Basophil percentage < 0.2 AI 0.0-0.9 [facility] Basophils/100 WBC (Bld) 0.6 % 0-1 [facility] Bilirubin [Mass/Vol] 0.20 mg/dL 0.20-1.00 [facility] Comment on above: For patients on eltr ombopag therapy, use of Dimension Alta TBIL is not recommended. Chloride [Moles/Vol] 110 mmol/L 98-107 [facility] Eosinophils/100 WBC (Bld) 5.2 % 0-5 [facility] Glucose [Mass/Vol] 102 mg/dL 74-106 [facility] Comment on above: Fasting Glucose resu lt from 100 to 125 mg/dL suggests IMPAIRED HOMEOSTASIS per A.D.A. criteria. Neutrophils (Bld) [#/Vol] 3.3 10*3/uL 2.0-7.7 [facility] Neutrophils/100 WBC (Bld) 61.8 % 47-70 [facility] Potassium [Moles/Vol] 3.7 mmol/L 3.5-5.1 [facility] Comment on above: Slight Hemolysis, Re sult may be falsely increased. Protein [Mass/Vol] 6.8 g/dL 6.4-8.2 [facility] Sodium [Moles/Vol] 143 mmol/L 136-145 [facility] WBC (Bld) [#/Vol] 5.4 10*3/uL 4.4-11.0 [facility] Blood erythrocytes count (nu mber/volume)Ordered By: Bridger Lanier on 07-02-2022 RBC (Bld) [#/Vol] 5.12 10*6/uL 4.2-5.4 [facility] Blood hemoglobin measurement (mass/volume)Ordered By: Bridger Lanier on 07-02-2022 Hemoglobin (Bld) [Mass/Vol] 15.2 g/dL 12.0-15.0 [facility] Blood lymphocytes/100 leukoc ytesOrdered By: Bridger Lanier on 07-02-2022 Lymphocytes/100 WBC (Bld) 21.2 % 19-41 [facility] Blood monocytes/100 leukocyt esOrdered By: Bridger Lanier on 07-02-2022 Monocytes/100 WBC (Bld) 11.0 % 0-10 [facility] Blood platelet mean volumeOr dered By: Bridger Lanier on 07-02-2022 Platelet mean volume (Bld) [Entitic vol] 11.2 fL 6.2-12.0 [facility] Determination of erythrocyte mean corpuscular volume (MCV)Ordered By: Bridger Lanier on 07-02-2022 MCV (RBC) [Entitic vol] 91.8 fL 81-99 [facility] Erythrocyte sedimentation ra teOrdered By: Bridger Lanier on 07-02-2022 ESR (Bld) [Velocity] 4 mm/h 0-30 [facility] Hematocrit Auto (Bld) [Volum e fraction]Ordered By: Bridger Lanier on 07-02-2022 Hematocrit (Bld) [Volume fraction] 47.0 % 37-47 [facility] Interpretation of serum or p lasma protein pattern by immunofixation (narrative resultOrdered By: Bridger Lanier on 07-02-2022 Protein Fractions Immunofixation Khai [Interp] See comment [facility] Comment on above: Result: Not Observed Laboratory - Chemistry and C hemistry - challengeOrdered By: Bridger Lanier on 07-02-2022 ALP [Catalytic activity/Vol] 100 U/L 45-117 [facility] ALT [Catalytic activity/Vol] 30 U/L 13-56 [facility] CO2 [Moles/Vol] 27.0 mmol/L 21.0-32.0 [facility] Urea nitrogen/Creatinine [Mass ratio] 26.9 mg/mg 10-20 [facility] Laboratory - Chemistry and C hemistry - challengeon 07-02-2022 Globulin (S) [Mass/Vol] 3.2 g/dL 2.2-4.2 [facility] Work Phone: Laboratory - Hematology and Cell countsOrdered By: Bridger Lanier on 07-02-2022 Erythrocyte distribution width (RBC) [Entitic vol] 44.7 fL 35.1-43.9 [facility] Erythrocyte distribution width (RBC) [Ratio] 13.2 % 11.6-14.6 [facility] Immature granulocytes/100 WBC (Bld) 0.200 % 0.0-0.9 [facility] Comment on above: IG% - Immature Granu locytes (promyelocytes, myelocytes and metamyelocytes) > 1% indicates that a LEFT SHIFT is Present. MCH (RBC) [Entitic mass] 29.7 pg 27.0-32.0 [facility] Nucleated RBC/100 WBC (Bld) [Ratio] 0 % 0-5 [facility] MCHC Auto (RBC) [Mass/Vol]Or dered By: Bridger Lanier on 07-02-2022 MCHC (RBC) [Mass/Vol] 32.3 g/dL 32-36 [facility] No Panel InformationOrdered By: Bridger Lanier on 07-02-2022 Addendum Document Comment . [facility] Comment on above: Protein electrophore sis scan will follow via computer,mail, or power plant technician delivery. Centromere B Antibody <0.2 AI 0.0-0.9 [facility] Endomysial IgA Antibody Negative Negative [facility] Estimated GFR (MDRD) Amer 93 mL/min >60 [facility] Comment on above: GFR Calc Estimated GFR (MDRD) Non-Af Amer 77 mL/min >60 [facility] Comment on above: Non- GFR Calc Immunoglobulin E 124 IU/mL 6-495 [facility] SIEVE REPAIRER Antibody <0.2 AI 0.0-0.9 [facility] Platelets bldOrdered By: Pedro Lanier on 07-02-2022 Platelets (Bld) [#/Vol] 116 10*3/uL 150-450 [facility] Serum DNA double strand anti body assay (units/volume)Ordered By: Bridger Lanier on 07-02-2022 DNA double strand Ab Qn (S) [IU]/mL 0-9 [facility] Comment on above: Negative <5 Equivoca l 5 - 9 Positive >9 Serum IgA measurement (units /volume)on 07-02-2022 IgA Qn (S) 113 mg/dL 64-422 [facility] Work Phone: Comment on above: Performed at: [address] [id number] Director: Camron Tay PhD, Phone: [phone] Serum Dara-1 antibody assay (u nits/volume)Ordered By: Bridger Lanier on 07-02-2022 Dara-1 extractable nuclear Ab Qn (S) <0.2 AI 0.0-0.9 [facility] Serum Scl-70 extractable nuc lear antibody assay (units/volume)Ordered By: Bridger Lanier on 07-02-2022 SCL-70 extractable nuclear Ab Qn (S) 0.2 AI 0.0-0.9 [facility] Serum Roberts extractable nucl ear antibody detectionOrdered By: Bridger Lanier on 07-02-2022 Roberts extractable nuclear Ab Ql (S) <0.2 AI 0.0-0.9 [facility] Serum [id number] measu rement by electrophoresisOrdered By: Bridger Lanier on 07-02-2022 Alpha 1 globulin Elph [Mass/Vol] 0.2 g/dL 0.0-0.4 [facility] Alpha 1 globulin Elph [Mass/Vol] 0.8 g/dL 0.4-1.0 [facility] Serum classic neutrophil cyt oplasmic antibody assay (units/volume)Ordered By: Bridger Lanier on 07-02-2022 Neutrophil cytoplasmic Ab.classic Qn (S) <1:20 titer Neg:<1:20 [facility] Serum globulin measurement ( mass/volume)Ordered By: Bridger Lanier on 07-02-2022 Globulin (S) [Mass/Vol] 2.5 g/dL 2.2-3.9 [facility] Serum or plasma C reactive p rotein measurement (mass/volume)Ordered By: Bridger Lanier on 07-02-2022 CRP [Mass/Vol] 4.13 mg/L 0.0-3.0 [facility] Comment on above: C-Reactive Protein ( CRP) provides useful information for thediagnosis, therapy and monitoring of inflammatory processesand associated diseases. For the evaluation of Relative Riskfor Cardiovascular Disease, a High Sensitivity CRP (HSCRP)should be ordered. Serum or plasma IgA measurem ent (mass/volume)Ordered By: Bridger Lanier on 07-02-2022 IgA [Mass/Vol] 121 mg/dL 64-422 [facility] Serum or plasma IgG measurem ent (mass/volume)Ordered By: Bridger Lanier on 07-02-2022 IgG [Mass/Vol] 617 mg/dL [phone] [facility] Serum or plasma IgM measurem ent (mass/volume)Ordered By: Bridger Lanier on 07-02-2022 IgM [Mass/Vol] 109 mg/dL 26-217 [facility] Serum or plasma albumin josette urement (mass/volume)Ordered By: Bridger Lanier on 07-02-2022 Albumin [Mass/Vol] 3.6 g/dL 3.2-5.0 [facility] Serum or plasma albumin/glob ulin mass ratioOrdered By: Bridger Lanier on 07-02-2022 Albumin/Globulin [Mass ratio] 1.1 {ratio} 0.9-2.4 [facility] Serum or plasma beta globuli n measurement by electrophoresis (mass/volume)Ordered By: Bridger Lanier on 07-02-2022 Beta globulin Elph [Mass/Vol] 0.9 g/dL 0.7-1.3 [facility] Serum or plasma calcium josette urement (mass/volume)Ordered By: Bridger Lanier on 07-02-2022 Calcium [Mass/Vol] 10.0 mg/dL 8.5-10.1 [facility] Serum or plasma creatinine m easurement (mass/volume)Ordered By: Bridger Lanier on 07-02-2022 Creatinine [Mass/Vol] 0.78 mg/dL 0.55-1.02 [facility] Comment on above: The validity of the calculated GFR & GFRAA in patients over 70 years has not been determined. Clinical correlation is essential. Serum or plasma gamma globul in measurement by electrophoresis (mass/volume)Ordered By: Bridger Lanier on 07-02-2022 Gamma globulin Elph [Mass/Vol] 0.7 g/dL 0.4-1.8 [facility] Serum or plasma gastrin josette urement (mass/volume)Ordered By: Bridger Lanier on 07-02-2022 Gastrin [Mass/Vol] < 10 pg/mL 0-115 [facility] Comment on above: Siemens Immulite 200 0 Immunochemiluminometric assay (ICMA)Values obtained with different assay methods or kits cannotbe used interchangeably. Results cannot be interpreted asabsolute evidence of the presence or absence of malignantdisease.Performed at: [facility] [employer] [id number] Director: Camron Tay PhD, Phone: [phone] at: [address] [id number] Director: Bartolo Camacho MD, Phone: [phone] Serum or plasma immunoelectr ophoresis interpretation (nominal result)Ordered By: Bridger Lanier on 07-02-2022 Interpretation IEP [Interp] Comment . [facility] Comment on above: No monoclonality det ected. Serum or plasma urea nitroge n measurement (mass/volume)Ordered By: Bridger Lanier on 07-02-2022 Urea nitrogen [Mass/Vol] 21 mg/dL 7-18 [facility] Serum perinuclear neutrophil cytoplasmic antibody titer by immunofluorescenceOrdered By: Bridger Lanier on 07-02-2022 Neutrophil cytoplasmic Ab.perinuclear IF (S) [Titer] <1:20 titer Neg:<1:20 [facility] Comment on above: The presence of posi tive fluorescence exhibiting P-ANCA orC-ANCA patterns alone is not specific for the diagnosis ofWegener's Granulomatosis (WG) or microscopic polyangiitis.Decisions about treatment should not be based solely onANCA IFA results. The [employer] ANCA Group Consensusrecommends follow up testing of positive sera with both ND-3 and MPO-ANCA enzyme immunoassays. As many as 5% serumsamples are positive only by EIA. Ref. AM J Clin [id number];111:507-513. Serum tissue transglutaminas e IgA antibody assay (units/volume)Ordered By: Bridger Lanier on 07-02-2022 tTG IgA Qn (S) <2 U/mL 0-3 [facility] Comment on above: Negative 0 - 3 Weak Positive 4 - 10 Positive >10 Tissue Transglutaminase (tTG) has been identified as the endomysial antigen. Studies have demonstr- ated that endomysial IgA antibodies have over 99% specificity for gluten sensitive enteropathy. Thin prep Papanicolaou smear with manual screeningOrdered By: Bridger Lanier on 07-02-2022 Thin prep Papanicolaou smear with manual screening 13 U/L 15-37 [facility] Comment on above: Slight Hemolysis, Re sult may be falsely increased. Thin prep Papanicolaou smear with manual screening 6 5-15 [facility] Thin prep Papanicolaou smear with manual screening 194 U/L 84-246 [facility] Comment on above: Slight Hemolysis, Re sult may be falsely increased. Thin prep Papanicolaou smear with manual screening 1.7 0.7-1.7 [facility] Total protein bloodOrdered B y: Bridger Lanier on 07-02-2022 Protein [Mass/Vol] 6.5 g/dL 6.0-8.5 [facility] Absolute lymphocyte counton 05-22-2022 Lymphocytes Auto (Unsp spec) [#/Vol] 0.93 10*3/uL 0.83-4.51 [facility] Work Phone: Basophil percentageon 2021 Basophils/100 WBC (Bld) 0.6 % 0-1 [facility] Work Phone: Eosinophils/100 WBC (Bld) 4.5 % 0-5 [facility] Work Phone: Neutrophils (Bld) [#/Vol] 2.9 10*3/uL 2.0-7.7 [facility] Work Phone: Neutrophils/100 WBC (Bld) 63.2 % 47-70 [facility] Work Phone: [phone] WBC (Bld) [#/Vol] 4.6 10*3/uL 4.4-11.0 [facility] Work Phone: Blood erythrocytes count (nu mber/volume)on 05-22-2022 RBC (Bld) [#/Vol] 4.88 10*6/uL 4.2-5.4 [facility] Work Phone: Blood hemoglobin measurement (mass/volume)on 05-22-2022 Hemoglobin (Bld) [Mass/Vol] 15.0 g/dL 12.0-15.0 [facility] Work Phone: Blood lymphocytes/100 leukoc yteson 05-22-2022 Lymphocytes/100 WBC (Bld) 20.1 % 19-41 [facility] Work Phone: Blood monocytes/100 leukocyt eson 05-22-2022 Monocytes/100 WBC (Bld) 11.4 % 0-10 [facility] Work Phone: Blood platelet mean volumeon 05-22-2022 Platelet mean volume (Bld) [Entitic vol] 11.8 fL 6.2-12.0 [facility] Work Phone: Determination of erythrocyte mean corpuscular volume (MCV)on 05-22-2022 MCV (RBC) [Entitic vol] 92.4 fL 81-99 [facility] Work Phone: Hematocrit Auto (Bld) [Volum e fraction]on 05-22-2022 Hematocrit (Bld) [Volume fraction] 45.1 % 37-47 [facility] Work Phone: Laboratory - Hematology and Cell countson 05-22-2022 Erythrocyte distribution width (RBC) [Entitic vol] 44.4 fL 35.1-43.9 [facility] Work Phone: Erythrocyte distribution width (RBC) [Ratio] 13.1 % 11.6-14.6 [facility] Work Phone: Immature granulocytes/100 WBC (Bld) 0.200 % 0.0-0.9 [facility] Work Phone: Comment on above: IG% - Immature Granu locytes (promyelocytes, myelocytes and metamyelocytes) > 1% indicates that a LEFT SHIFT is Present. MCH (RBC) [Entitic mass] 30.7 pg 27.0-32.0 [facility] Work Phone: Nucleated RBC/100 WBC (Bld) [Ratio] 0 % 0-5 [facility] Work Phone: MCHC Auto (RBC) [Mass/Vol]on 05-22-2022 MCHC (RBC) [Mass/Vol] 33.3 g/dL 32-36 [facility] Work Phone: No Panel Informationon 05-22 Thyroid Stimulating Hormone (TSH) 1.93 uIU/mL 0.358-3.74 [facility] Work Phone: Platelets bldon 05-22-2022 Platelets (Bld) [#/Vol] 109 10*3/uL 150-450 [facility] Work Phone: Serum or plasma ferritin deshawn surement (mass/volume)on 05-22-2022 Ferritin [Mass/Vol] 178 ng/mL 8-252 [facility] Work Phone: Clinical Summary: Dawna montesinos 01-11-2022 [facility] OP Visit Invalid Interpretation Code [facility] Work Phone: Office Visit: New/Est - 1st visit with physician, Rm: 9on 01-11-2022 NEGATED: Highlighted rowxray history of the left knee on 01/10/2022 at [facility] Invalid Interpretation Code [facility] Work Phone: Clinical Summary: Scanned Hi story Summaryon 01-10-2022 comments about allergies Surgical tape Seasonal allergies/ shot once a week Invalid Interpretation Code [facility] Work Phone: data entered by patient, alcohol (ethanol or ETOH) use No Invalid Interpretation Code [facility] Work Phone: Data entered by patient, allergy list Sulfa drugs Dust mites Plant pollens (Hay Fever) I don't have any Food Allergies Invalid Interpretation Code [facility] Work Phone: data entered by patient, drug (of abuse) use No Invalid Interpretation Code [facility] Work Phone: data entered by patient, Employer Name retired Invalid Interpretation Code [facility] Work Phone: data entered by patient, exercise history No Invalid Interpretation Code [facility] Work Phone: data entered by patient, father's medical history Blood clots Heart disease Invalid Interpretation Code [facility] Work Phone: Data entered by patient, history of past surgeries Appendectomy Cataract surgery Gallbladder surgery Hernia repair Hysterectomy Invalid Interpretation Code [facility] Work Phone: Data entered by patient, medication list levothyroxine sodium-.88 mcg-1-Daily mfeemesisvp-17-8-Daily Vitamin D-Unknown Bxqthuny-0-Qyeqf [id number] Dosage-When needed Invalid Interpretation Code [facility] Work Phone: data entered by patient, mother's medical history Bleeding disorder Heart disease High blood pressure Hypothyroidism Invalid Interpretation Code [facility] Work Phone: data entered by patient, past medical history Bleeding disorder GERD Hypothyroidism Invalid Interpretation Code [facility] Work Phone: data entered by patient, social history, current smoker never smoker Invalid Interpretation Code [facility] Work Phone: data entered by patient, social history, marital status Invalid Interpretation Code [facility] Work Phone: father of patient is alive or Invalid Interpretation Code [facility] Work Phone: Housing Type: apartment, house, residential, trailer, none house Invalid Interpretation Code [facility] Work Phone: housing unit size (asthma environmental history, housing) (from single family to don't know) 1 floor Invalid Interpretation Code [facility] Work Phone: medical history of patient's brother(s) Diabetes - non-insulin dependent Heart disease High blood pressure Invalid Interpretation Code [facility] Work Phone: medication comments Gabapentin used for restless legs Invalid Interpretation Code [facility] Work Phone: mother of patient is alive or Invalid Interpretation Code [facility] Work Phone: Number of dependent children No Invalid Interpretation Code [facility] Work Phone: sister of patient(s) alive or I do not have any sisters. My sister(s)' health history is unknown. Invalid Interpretation Code [facility] Work Phone: Web entered surgical history comments Colon resection Invalid Interpretation Code [facility] Work Phone: XR Knee - left 4 [...] Impression: 1. No acute fracture or dislocation. Assembly Machine Feeder: [id number] Transcribe Date/Time: Jan 10 2022 2:27P Dictated by : WALDO VELÁZQUEZ MD This examination was interpreted and the report reviewed and electronically signed by: WALDO VELÁZQUEZ MD on Jan 10 2022 2:29PM EST [email or web address] E_DIVISION OF RADIOLOGY Provider, [facility] - 01/10/2022 * * *Final Report* * [...] Impression: 1. No acute fracture or dislocation. Assembly Machine Feeder: [id number] Transcribe Date/Time: Jan 10 2022 2:27P Dictated by : WALDO VELÁZQUEZ MD This examination was interpreted and the report reviewed and electronically signed by: WALDO VELÁZQUEZ MD on Jan 10 2022 2:29PM EST [facility] Radiology Study observation (narrative) [facility] XR Knee - left 4 ViewsOrdere d By: [facility] Provider on 01-10-2022 [facility] Basophil percentageon 2021 Creatinine [Mass/Vol] 1.3 mg/dL 0.55-1.02 [facility] Work Phone: Laboratory - Chemistry and C hemistry - challengeon 01-09-2022 GFR/1.73 sq M.predicted among non-blacks MDRD (S/P/Bld) [Vol rate/Area] 45.0000 mL/min/{1.73_m2} >60 [facility] Work Phone: No Panel Informationon 10-22 POC SARS CoV-2 Antigen Positive [facility] Work Phone: Absolute lymphocyte counton 10-03-2021 Lymphocytes Auto (Unsp spec) [#/Vol] 0.90 10*3/uL 0.83-4.51 [facility] Work Phone: Basophil percentageon 2021 Basophils/100 WBC (Bld) 0.5 % 0-1 [facility] Work Phone: Bilirubin [Mass/Vol] 0.30 mg/dL 0.20-1.00 [facility] Work Phone: Comment on above: For patients on eltr ombopag therapy, use of Dimension Alta TBIL is not recommended. Chloride [Moles/Vol] 108 mmol/L 98-107 [facility] Work Phone: Eosinophils/100 WBC (Bld) 4.3 % 0-5 [facility] Work Phone: Glucose [Mass/Vol] 106 mg/dL 74-106 [facility] Work Phone: Comment on above: Fasting Glucose resu lt from 100 to 125 mg/dL suggests IMPAIRED HOMEOSTASIS per A.D.A. criteria.Please note revised GLUCOSE reference range effective 2017. Neutrophils (Bld) [#/Vol] 2.9 10*3/uL 2.0-7.7 [facility] Work Phone: Neutrophils/100 WBC (Bld) 64.7 % 47-70 [facility] Work Phone: Potassium [Moles/Vol] 3.7 mmol/L 3.5-5.1 [facility] Work Phone: Protein [Mass/Vol] 7.1 g/dL 6.4-8.2 [facility] Work Phone: Sodium [Moles/Vol] 142 mmol/L 136-145 [facility] Work Phone: WBC (Bld) [#/Vol] 4.4 10*3/uL 4.4-11.0 [facility] Work Phone: Blood erythrocytes count (nu mber/volume)on 10-03-2021 RBC (Bld) [#/Vol] 5.27 10*6/uL 4.2-5.4 [facility] Work [facility]: Blood hemoglobin measurement (mass/volume)on 10-03-2021 Hemoglobin (Bld) [Mass/Vol] 16.0 g/dL 12.0-15.0 [facility] Work Phone: Blood lymphocytes/100 leukoc yteson 10-03-2021 Lymphocytes/100 WBC (Bld) 20.5 % 19-41 [facility] Work Phone: Blood monocytes/100 leukocyt eson 10-03-2021 Monocytes/100 WBC (Bld) 10.0 % 0-10 [facility] Work Phone: Blood platelet mean volumeon 10-03-2021 Platelet mean volume (Bld) [Entitic vol] 11.7 fL 6.2-12.0 [facility] Work Phone: Determination of erythrocyte mean corpuscular volume (MCV)on 10-03-2021 MCV (RBC) [Entitic vol] 91.7 fL 81-99 [facility] Work Phone: Hematocrit Auto (Bld) [Volum e fraction]on 10-03-2021 Hematocrit (Bld) [Volume fraction] 48.3 % 37-47 [facility] Work Phone: Iron measurement (mass/mass) on 10-03-2021 Iron (Unsp spec) [Mass/Mass] 91 ug/dL 50-170 [facility] Work Phone: Laboratory - Chemistry and C hemistry - challengeon 10-03-2021 ALP [Catalytic activity/Vol] 105 U/L 45-117 [facility] Work Phone: ALT [Catalytic activity/Vol] 28 U/L 13-56 [facility] Work Phone: CO2 [Moles/Vol] 24.0 mmol/L 21.0-32.0 [facility] Work Phone: Free T4 [Mass/Vol] 1.35 ng/dL 0.76-1.46 [facility] Work Phone: Globulin (S) [Mass/Vol] 3.5 g/dL 2.2-4.2 [facility] Work Phone: Urea nitrogen/Creatinine [Mass ratio] 20.4 mg/mg 10-20 [facility] Work Phone: Laboratory - Hematology and Cell countson 10-03-2021 Erythrocyte distribution width (RBC) [Entitic vol] 44.4 fL 35.1-43.9 [facility] Work Phone: Erythrocyte distribution width (RBC) [Ratio] 13.1 % 11.6-14.6 [facility] Work Phone: Immature granulocytes/100 WBC (Bld) 0.000 % 0.0-0.9 [facility] Work Phone: Comment on above: IG% - Immature Granu locytes (promyelocytes, myelocytes and metamyelocytes) > 1% indicates that a LEFT SHIFT is Present. MCH (RBC) [Entitic mass] 30.4 pg 27.0-32.0 [facility] Work Phone: Nucleated RBC/100 WBC (Bld) [Ratio] 0 % 0-5 [facility] Work Phone: MCHC Auto (RBC) [Mass/Vol]on 10-03-2021 MCHC (RBC) [Mass/Vol] 33.1 g/dL 32-36 [facility] Work Phone: No Panel Informationon 10-03 Estimated GFR (MDRD) Amer 77 mL/min >60 [facility] Work Phone: Comment on above: GFR Calc Estimated GFR (MDRD) Non-Af Amer 63 mL/min >60 [facility] Work Phone: Comment on above: Non- GFR Calc Thyroid Stimulating Hormone (TSH) 1.13 uIU/mL 0.358-3.74 [facility] Work Phone: Total Iron Binding Capacity 302 ug/dL 250-450 [facility] Work Phone: Platelets bldon 10-03-2021 Platelets (Bld) [#/Vol] 101 10*3/uL 150-450 [facility] Work Phone: Serum nuclear antibody titer by immunofluorescenceon 10-03-2021 Nuclear Ab IF (S) [Titer] See comment [facility] Work Phone: Comment on above: Antinuclear Antibodi es, IFAAntinuclear Antibodies, IFA Positive Abnormal Negative <1:80 Borderline 1:80 Positive >1:80Homogeneous Pattern 1:80 ICAP nomenclature: AC-1Note:For more information about Hep-2 cell patterns useANApatterns.org, the official website for the InternationalConsensus on Antinuclear Antibody (VICKY) Patterns (ICAP). ----A positive VICKY result may occur in healthy individuals (lowtiter) or be associated with a variety of diseases. Seeinterpretation chart which is not all inclusive:Pattern Antigen Detected Suggested Disease Association Homogeneous DNA(ds,ss), SLE - High titers Nucleosomes, Histones Drug-induced SLE Speckled Sm, SIEVE REPAIRER, SCL-70, SLE,MCTD,PSS (diffuse form), SS-A/SS-B Sjogrens Nucleolar SCL-70, PM-1/SCL High titers Scleroderma, PM/DM Centromere Centromere PSS (limited form) w/Crest syndrome variable Nuclear Dot Sp100,[id number] Primary Biliary Cirrhosis Nuclear GP210, Primary Biliary CirrhosisMembrane jaziel A,B,C Serum or plasma albumin josette urement (mass/volume)on 10-03-2021 Albumin [Mass/Vol] 3.6 g/dL 3.2-5.0 [facility] Work Phone: Serum or plasma albumin/glob ulin mass ratioon 10-03-2021 Albumin/Globulin [Mass ratio] 1.0 {ratio} 0.9-2.4 [facility] Work Phone: Serum or plasma calcitriol m easurement (mass/volume)on 10-03-2021 1,25-dihydroxyvitamin D3 [Mass/Vol] See comment [facility] Work Phone: Comment on above: TEST RESULT UNITS RE F INTERVALCalcitriol(1,25 di-OH Vit D)Calcitriol(1,25 di-OH Vit D) 87.4 High pg/mL 19.9-79.3 ___ TESTING PERFORMED AT [facility]. ORIGINAL REPORT ON FILE IN LAB CONTAINS ADDITIONAL TEST SITE INFORMATION. Serum or plasma calcium josette urement (mass/volume)on 10-03-2021 Calcium [Mass/Vol] 9.5 mg/dL 8.5-10.1 [facility] Work Phone: Serum or plasma creatinine m easurement (mass/volume)on 10-03-2021 Creatinine [Mass/Vol] 0.93 mg/dL 0.55-1.02 [facility] Work Phone: Comment on above: The validity of the calculated GFR & GFRAA in patients over 70 years has not been determined. Clinical correlation is essential. Serum or plasma ferritin deshawn surement (mass/volume)on 10-03-2021 Ferritin [Mass/Vol] 174 ng/mL 8-252 [facility] Work Phone: Serum or plasma urea nitroge n measurement (mass/volume)on 10-03-2021 Urea nitrogen [Mass/Vol] 19 mg/dL 7-18 [facility] Work Phone: Serum or plasma zinc measure ment (mass/volume)on 10-03-2021 Zinc [Mass/Vol] 90 ug/dL [facility] Work Phone: Comment on above: Detection Limit = 5P erformed at: [address] [id number] Director: Bartolo Camacho MD, Phone: [phone] Thin prep Papanicolaou smear with manual screeningon 10-03-2021 Thin prep Papanicolaou smear with manual screening 11 U/L 15-37 [facility] Work Phone: Thin prep Papanicolaou smear with manual screening 10 5-15 [facility] Work Phone: CNPAlona 05-30-2021 CNPN Telephone (CDLBME) HALLIE GUZMAN ([id number]) 1950 F Date Time Provider Department 05/30/21 KELLIE HALEY CDLBME During your visit today, we recorded the following information about you: Kellie Haley RN 05/30/2021 1:31 PM Signed Spoke with patient regarding reminder for stress test tomorrow and given instructions. Allergies As of Date: 05/30/2021 Noted Allergy Reaction LIPITOR (ATORVASTATIN CALCIUM) 12/17/2006 Comments: myalgia SULFAMETHOXAZOLE 11/01/2020 14 - Other: See Comments Comments: Very Shaky Date Reviewed: 05/24/2021 Reviewed by: Andie Subramanian [facility] - Fully Assessed Reason for Visit: Reminder Call [[id number]] Prescriptions as of 05/30/2021 - gabapentin (NEURONTIN) [...] Encounter Status:Closed by KELLIE HALEY on 05/30/21 [facility] XR Abdomen Supine and Uprigh ton 04-04-2021 IMPRESSION: Nonobstructive bowel gas pattern with fecal retention. Assembly Machine Feeder: PSCB Transcribe Date/Time: Apr 04 2021 6:21P Dictated by : JUMANA SMYTH MD This examination was interpreted and the report reviewed and electronically signed by: JUMANA SMYTH MD on Apr 04 2021 6:30PM [facility] DIVISION OF RADIOLOGY * * *Final Report* [...] no pathologic calculi. DIVISION OF RADIOLOGY Provider, [facility] - 04/04/2021 * * *Final Report* * [...] Nonobstructive bowel gas pattern with fecal retention. Assembly Machine Feeder: ROBERTS CHAPELB Transcribe Date/Time: Apr 04 2021 6:21P Dictated by : JUMANA SMYTH MD This examination was interpreted and the report reviewed and electronically signed by: JUMANA SMYTH MD on Apr 04 2021 6:30PM EST [facility] Radiology Study observation (narrative) [facility] XR Abdomen Supine and Uprigh tOrdered By: [facility] Provider on 04-04-2021 [facility] US LIVERon 02-04-2018 US LIVER Name: HALLIE [...] signed by: DORYS EWING MD, PHD Normal [facility] BD CT ABDOMEN AND PELVIS WIT H [...] basis.3. Postoperative changes consistent with sigmoid colectomy dbrpuq-dp-mcg anastomosis. Mild surrounding perirectal inflammatorystranding is likely postoperative in etiology.4. Subcentimeter hypodense lesion in the spleen, which is not fullycharacterized.5. Fatty infiltration of the liver.I personally reviewed the images/study and I agree with the findingsas stated. This study was interpreted at [facility], [place], [place].Electronically signed by: ALEX BEAR MD Normal [facility] Discharge Summaryon 12-04-19 Discharge Summary Send Summary:Dischar ge Summary Providers:Provider Role Provider Name? Referring Loree Morgan? Attending Loree Morgan? Primary Nahed Faust ANote Recipients: Nahed Faust MD - [id number] []Discharge:Summary:Adm ission Date: .11-Nov-2017 07:33:00Discharge Date: [id number] Physician at Discharge: Loree MorganAdmission Reason: DiverticultisisFinal [...] regular nursing floor. Pain was controlled with HVAC TECHNICIAN pump. Shecontinued to do well with minimal [...] for staple removal, please call our office [phone]. A follow up appointment for one month [...] Colorectal Surgery Scheduled Date/Time: 17-Dec-2017 11:00 Location: [facility] [address], [address],[facility] [address] [id number] Medications: Home Medication levothyroxine 50 mcg (0.05 [...] NoneRadiology Results - Pending: NoneElectronic Signatures:Holly Brady (SUPERVISING AIRPLANE PILOT-SHOULDER BONER) (Signed 03-Dec-2017 14:23) Authored: Send Summary, Summary Content, Ongoing Care,Signature/Cosignat ure/AttestationLast Updated: 03-Dec-2017 14:23 by Holly Brady (SUPERVISING AIRPLANE PILOT-SHOULDER BONER) Normal [facility] ANTI PF4 PATH REVIEWon 11-14 PATH REVIEW-HIT ASSAY NEFTALI Normal [facility] Comment on above: Result Comment: By h er/his signature above, the Pathologist listed as making the final interpretation certifies that she/he has personally reviewed this case. Performed By: #### C OAGS ####[facility] [place] [address] ANTI-PLT FACTOR 4 AB WITH SE ROTONIN RELEASE ASSAY REFLEXon 11-14-2017 INTERPRETATION Negative Normal [facility] Comment on above: Result Comment: ANTI -PLATELET FACTOR 4 ANTIBODY IS NOTDETECTED BY ASHLEY ASSAY.THESE RESULTS SHOULD BE USED IN CONJUNCTIONWITH CLINICAL FINDINGS.CLINICAL CORRELATION IS RECOMMENDED. Performed By: #### C OAGS ####[facility] [place] [address] SERUM+PLT FACTOR 4 0.143 OD UNITS Normal <0.400 [facility] Comment on above: Performed By: #### C OAGS ####[facility] [place] [address] BASIC METABOLIC PANELon 10-31 Anion gap 12 mmol/L Normal 10 - 20 [facility] Comment on above: Performed By: #### C OAGS ####[facility] [place] [address] Bicarbonate (HCO3) 25 mmol/L Normal 21 - 32 [facility] Comment on above: Performed By: #### C OAGS ####[facility] [place] [address] Calcium 9.2 mg/dL Normal 8.6 - 10.6 [facility] Comment on above: Performed By: #### C OAGS ####[facility] [place] [address] Chloride 113 mmol/L High 98 - 107 [facility] Comment on above: Performed By: #### C OAGS ####[facility] [place] [address] Creatinine 0.68 mg/dL Normal 0.50 - 1.05 [facility] Comment on above: Performed By: #### C OAGS ####[facility] [place] [address] eGFR (non-black) mL/min/{1.73_m2} Normal >60 [facility] Comment on above: Result Comment: CALC ULATIONS OF ESTIMATED GFR ARE PERFORMED USING THE MDRD STUDY EQUATION FOR THE IDMS-TRACEABLE CREATININE METHODS. CLIN CHEM 2007;53:766-72 Performed By: #### C OAGS ####[facility] [place] [address] Glucose mass conc 95 mg/dL Normal 74 - 99 [facility] Comment on above: Performed By: #### C OAGS ####[facility] [place] [address] Potassium molar conc 3.5 mmol/L Normal 3.5 - 5.3 [facility] Comment on above: Performed By: #### C OAGS ####[facility] [place] [address] Sodium 146 mmol/L High 136 - 145 [facility] Comment on above: Performed By: #### C OAGS ####[facility] [place] [address] Urea nitrogen 8 mg/dL Normal 6 - 23 [facility] Comment on above: Performed By: #### C OAGS ####[facility] [place] [address] CBCon 11-14-2017 Erythrocyte distribution width Auto Ratio (RBC) 13.1 % Normal 11.5 - 14.5 [facility] Comment on above: Performed By: #### C OAGS ####[facility] [place] [address] Erythrocytes (RBC) 3.82 x10E12/L Low 4.00 - 5.20 [facility] Comment on above: Performed By: #### C OAGS ####[facility] [place] [address] Hematocrit (HCT) 35.3 % Low 36.0 - 46.0 [facility] Comment on above: Performed By: #### C OAGS ####[facility] [place] [address] Hemoglobin mass conc (Bld) 11.5 g/dL Low 12.0 - 16.0 [facility] Comment on above: Performed By: #### C OAGS ####[facility] [place] [address] MCHC mass conc (RBC) 32.6 g/dL Normal 32.0 - 36.0 [facility] Comment on above: Performed By: #### C OAGS ####[facility] [place] [address] MCV 92 fL Normal 80 - 100 [facility] Comment on above: Performed By: #### C OAGS ####[facility] [place] [address] Nucleated erythrocytes 0.0 /100 WBC Normal 0.0-0.0 [facility] Comment on above: Performed By: #### C OAGS ####[facility] [place] [address] Platelets 82 10*3/uL Low 150 - 450 [facility] Comment on above: Performed By: #### C OAGS ####[facility] [place] [address] WBC (Leukocytes) 4.4 10*3/uL Normal 4.4 - 11.3 [facility] Comment on above: Performed By: #### C OAGS ####[facility] [place] [address] CBCon 11-13-2017 Erythrocyte distribution width Auto Ratio (RBC) 13.2 % Normal 11.5 - 14.5 [facility] Comment on above: Performed By: #### C OAGS ####[facility] [place] [address] Erythrocytes (RBC) 4.17 x10E12/L Normal 4.00 - 5.20 [facility] Comment on above: Performed By: #### C OAGS ####[facility] [place] [address] Hematocrit (HCT) 37.6 % Normal 36.0 - 46.0 [facility] Comment on above: Performed By: #### C OAGS ####[facility] [place] [address] Hemoglobin mass conc (Bld) 12.3 g/dL Normal 12.0 - 16.0 [facility] Comment on above: Performed By: #### C OAGS ####[facility] [place] [address] MCHC mass conc (RBC) 32.7 g/dL Normal 32.0 - 36.0 [facility] Comment on above: Performed By: #### C OAGS ####[facility] [place] [address] MCV 90 fL Normal 80 - 100 [facility] Comment on above: Performed By: #### C OAGS ####[facility] [place] [address] Nucleated erythrocytes 0.0 /100 WBC Normal 0.0-0.0 [facility] Comment on above: Performed By: #### C OAGS ####[facility] [place] [address] Platelets 86 10*3/uL Low 150 - 450 [facility] Comment on above: Performed By: #### C OAGS ####[facility] [place] [address] WBC (Leukocytes) 6.6 10*3/uL Normal 4.4 - 11.3 [facility] Comment on above: Performed By: #### C OAGS ####[facility] [place] [address] Erythrocyte distribution width Auto Ratio (RBC) 13.5 % Normal 11.5 - 14.5 [facility] Comment on above: Performed By: #### C OAGS ####[facility] [place] [address] Erythrocytes (RBC) 4.00 x10E12/L Normal 4.00 - 5.20 [facility] Comment on above: Performed By: #### C OAGS ####[facility] [place] [address] Hematocrit (HCT) 37.7 % Normal 36.0 - 46.0 [facility] Comment on above: Performed By: #### C OAGS ####[facility] [place] [address] Hemoglobin mass conc (Bld) 12.1 g/dL Normal 12.0 - 16.0 [facility] Comment on above: Performed By: #### C OAGS ####[facility] [place] [address] MCHC mass conc (RBC) 32.1 g/dL Normal 32.0 - 36.0 [facility] Comment on above: Performed By: #### C OAGS ####[facility] [place] [address] MCV 94 fL Normal 80 - 100 [facility] Comment on above: Performed By: #### C OAGS ####[facility] [place] [address] Nucleated erythrocytes 0.0 /100 WBC Normal 0.0-0.0 [facility] Comment on above: Performed By: #### C OAGS ####[facility] [place] [address] Platelets 80 10*3/uL Low 150 - 450 [facility] Comment on above: Performed By: #### C OAGS ####[facility] [place] [address] WBC (Leukocytes) 6.6 10*3/uL Normal 4.4 - 11.3 [facility] Comment on above: Performed By: #### C OAGS ####[facility] [place] [address] RENAL FUNCTION PANELon 11-13 Albumin 3.0 g/dL Low 3.4 - 5.0 [facility] Comment on above: Performed By: #### C OAGS ####[facility] [place] [address] Anion gap 11 mmol/L Normal 10 - 20 [facility] Comment on above: Performed By: #### C OAGS ####[facility] [place] [address] Bicarbonate (HCO3) 26 mmol/L Normal 21 - 32 [facility] Comment on above: Performed By: #### C OAGS ####[facility] [place] [address] Calcium 9.2 mg/dL Normal 8.6 - 10.6 [facility] Comment on above: Performed By: #### C OAGS ####[facility] [place] [address] Chloride 110 mmol/L High 98 - 107 [facility] Comment on above: Performed By: #### C OAGS ####[facility] [place] [address] Creatinine 0.71 mg/dL Normal 0.50 - 1.05 [facility] Comment on above: Performed By: #### C OAGS ####[facility] [place] [address] eGFR (non-black) mL/min/{1.73_m2} Normal >60 [facility] Comment on above: Performed By: #### C OAGS ####[facility] [place] [address] Result Comment: CALC ULATIONS OF ESTIMATED GFR ARE PERFORMED USING THE MDRD STUDY EQUATION FOR THE IDMS-TRACEABLE CREATININE METHODS. CLIN CHEM 2007;53:766-72 Glucose mass conc 103 mg/dL High 74 - 99 [facility] Comment on above: Performed By: #### C OAGS ####[facility] [place] [address] Phosphate 2.4 mg/dL Low 2.5 - 4.9 [facility] Comment on above: Result Comment: The performance characteristics of phosphorus testing in heparinized plasma have been validated by the individual laboratory site where testing is performed. Testing on heparinized plasma is not approved by the FDA; however, such approval is not necessary. Performed By: #### C OAGS ####[facility] [place] [address] Potassium molar conc 3.7 mmol/L Normal 3.5 - 5.3 [facility] Comment on above: Performed By: #### C OAGS ####[facility] [place] [address] Sodium 143 mmol/L Normal 136 - 145 [facility] Comment on above: Performed By: #### C OAGS ####[facility] [place] [address] Urea nitrogen 8 mg/dL Normal 6 - 23 [facility] Comment on above: Performed By: #### C OAGS ####[facility] [place] [address] BASIC METABOLIC PANELon 10-31 Anion gap 14 mmol/L Normal 10 - 20 [facility] Comment on above: Performed By: #### C OAGS ####[facility] [place] [address] Bicarbonate (HCO3) 24 mmol/L Normal 21 - 32 [facility] Comment on above: Performed By: #### C OAGS ####[facility] [place] [address] Calcium 9.0 mg/dL Normal 8.6 - 10.6 [facility] Comment on above: Performed By: #### C OAGS ####[facility] [place] [address] Chloride 109 mmol/L High 98 - 107 [facility] Comment on above: Performed By: #### C OAGS ####[facility] [place] [address] Creatinine 0.61 mg/dL Normal 0.50 - 1.05 [facility] Comment on above: Performed By: #### C OAGS ####[facility] [place] [address] eGFR (non-black) mL/min/{1.73_m2} Normal >60 [facility] Comment on above: Performed By: #### C OAGS ####[facility] [place] [address] Result Comment: CALC ULATIONS OF ESTIMATED GFR ARE PERFORMED USING THE MDRD STUDY EQUATION FOR THE IDMS-TRACEABLE CREATININE METHODS. CLIN CHEM 2007;53:766-72 Glucose mass conc 82 mg/dL Normal 74 - 99 [facility] Comment on above: Performed By: #### C OAGS ####[facility] [place] [address] Potassium molar conc 4.2 mmol/L Normal 3.5 - 5.3 [facility] Comment on above: Performed By: #### C OAGS ####[facility] [place] [address] Sodium 143 mmol/L Normal 136 - 145 [facility] Comment on above: Performed By: #### C OAGS ####[facility] [place] [address] Urea nitrogen 8 mg/dL Normal 6 - 23 [facility] Comment on above: Performed By: #### C OAGS ####[facility] [place] [address] CBCon 11-12-2017 Erythrocyte distribution width Auto Ratio (RBC) 13.5 % Normal 11.5 - 14.5 [facility] Comment on above: Performed By: #### C BC ####[facility] [place] [address] Erythrocytes (RBC) 4.31 x10E12/L Normal 4.00 - 5.20 [facility] Comment on above: Performed By: #### C BC ####[facility] [place] [address] Hematocrit (HCT) 40.9 % Normal 36.0 - 46.0 [facility] Comment on above: Performed By: #### C BC ####[facility] [place] [address] Hemoglobin mass conc (Bld) 12.9 g/dL Normal 12.0 - 16.0 [facility] Comment on above: Performed By: #### C BC ####[facility] [place] [address] MCHC mass conc (RBC) 31.5 g/dL Low 32.0 - 36.0 [facility] Comment on above: Performed By: #### C BC ####[facility] [place] [address] MCV 95 fL Normal 80 - 100 [facility] Comment on above: Performed By: #### C BC ####[facility] [place] [address] Nucleated erythrocytes 0.0 /100 WBC Normal 0.0-0.0 [facility] Comment on above: Performed By: #### C BC ####[facility] [place] [address] Platelets 111 10*3/uL Low 150 - 450 [facility] Comment on above: Performed By: #### C BC ####[facility] [place] [address] WBC (Leukocytes) 10.0 10*3/uL Normal 4.4 - 11.3 [facility] Comment on above: Performed By: #### C BC ####[facility] [place] [address] ABO/RH GROUP TESTon 11-11-19 18 ABO TYPE A Normal [facility] Comment on above: Performed By: #### V ERAB ####[facility] [place] [address] RH TYPE Negative Normal [facility] Comment on above: Performed By: #### V ERAB ####[facility] [place] [address] [facility] Surgical Pathology Depar tmenton 11-11-2017 [facility] Surgical Pathology Department Name HALLIE GUZMAN Pathologist: SHADE CAAL, MDDate of Procedure: 11/11/2017Date Received: 11/11/2017Date Reported 11/13/2017Submitting Physician: LOREE MORGAN MDLocation: TASA Copy To/Referring/Attending: LOREE MORGAN MD [...] greatest dimension. Tissue is submitted to HTPF. [employer]x [employer] Worker sections aresubmitted in 5 cassettes.DJOSummary of Cassettes:Specimen Label Site A 1-3 diverticula 4 serosal adhesion 5 one possible lymph noded11/11/2017 Normal [facility] Comment on above: Performed By: #### C OAGS ####[facility] [place] [address] C-REACTIVE PROTEINon 018 C reactive protein (CRP) 0.28 mg/dL Normal [facility] Comment on above: Result Comment: REF VALUE< 1.00 Performed By: #### C RP ####[facility] [place] [address] CBCon 11-01-2017 Erythrocyte distribution width Auto Ratio (RBC) 13.2 % Normal 11.5 - 14.5 [facility] Comment on above: Performed By: #### C BC ####[facility] [place] [address] Erythrocytes (RBC) 5.36 x10E12/L High 4.00 - 5.20 [facility] Comment on above: Performed By: #### C BC ####[facility] [place] [address] Hematocrit (HCT) 50.6 % High 36.0 - 46.0 [facility] Comment on above: Performed By: #### C BC ####[facility] [place] [address] Hemoglobin mass conc (Bld) 16.0 g/dL Normal 12.0 - 16.0 [facility] Comment on above: Performed By: #### C BC ####[facility] [place] [address] MCHC mass conc (RBC) 31.6 g/dL Low 32.0 - 36.0 [facility] Comment on above: Performed By: #### C BC ####[facility] [place] [address] MCV 94 fL Normal 80 - 100 [facility] Comment on above: Performed By: #### C BC ####[facility] [place] [address] Nucleated erythrocytes 0.0 /100 WBC Normal 0.0-0.0 [facility] Comment on above: Performed By: #### C BC ####[facility] [place] [address] Platelets 145 10*3/uL Low 150 - 450 [facility] Comment on above: Performed By: #### C BC ####[facility] [place] [address] WBC (Leukocytes) 5.9 10*3/uL Normal 4.4 - 11.3 [facility] Comment on above: Performed By: #### C BC ####[facility] [place] [address] COAGULATION SCREENon 018 aPTT 29 s Normal 25 - 36 [facility] Comment on above: Result Comment: THE APTT IS NO LONGER USED FOR MONITORING UNFRACTIONATED HEPARIN THERAPY. FOR MONITORING HEPARIN THERAPY, USE THE HEPARIN ASSAY. Performed By: #### C OAGS ####[facility] [place] [address] INR Coag RelTime (PPP) 1.0 {INR} Normal 0.9 - 1.1 [facility] Comment on above: Performed By: #### C OAGS ####[facility] [place] [address] Prothrombin time (PT) Coag time (PPP) 11.4 s Normal 9.8 - 12.7 [facility] Comment on above: Performed By: #### C OAGS ####[facility] [place] [address] COMPREHENSIVE PANELon 2017 Alanine aminotransferase (ALT) 20 U/L Normal 7 - 45 [facility] Comment on above: Result Comment: Nellie ents treated with Sulfasalazine may generate falsely decreased results for ALT. Performed By: #### C MP ####[facility] [place] [address] Albumin 4.5 g/dL Normal 3.4 - 5.0 [facility] Comment on above: Performed By: #### C MP ####[facility] [place] [address] Alkaline phosphatase (ALP) 85 U/L Normal 33 - 136 [facility] Comment on above: Performed By: #### C MP ####[facility] [place] [address] Anion gap 16 mmol/L Normal 10 - 20 [facility] Comment on above: Performed By: #### C MP ####[facility] [place] [address] Aspartate aminotransferase (AST) 18 U/L Normal 9 - 39 [facility] Comment on above: Result Comment: MILD HEMOLYSIS DETECTED. The result may be falsely elevated due tohemolysis or other interferents. Clinical correlation is recommended.Repeat testing may be considered. Performed By: #### C MP ####[facility] [place] [address] Bicarbonate (HCO3) 26 mmol/L Normal 21 - 32 [facility] Comment on above: Performed By: #### C MP ####[facility] [place] [address] Bilirubin (total) 0.4 mg/dL Normal 0.0 - 1.2 [facility] Comment on above: Performed By: #### C MP ####[facility] [place] [address] Calcium 10.5 mg/dL Normal 8.6 - 10.6 [facility] Comment on above: Performed By: #### C MP ####[facility] [place] [address] Chloride 106 mmol/L Normal 98 - 107 [facility] Comment on above: Performed By: #### C MP ####[facility] [place] [address] Creatinine 0.79 mg/dL Normal 0.50 - 1.05 [facility] Comment on above: Performed By: #### C MP ####[facility] [place] [address] eGFR (non-black) mL/min/{1.73_m2} Normal >60 [facility] Comment on above: Result Comment: CALC ULATIONS OF ESTIMATED GFR ARE PERFORMED USING THE MDRD STUDY EQUATION FOR THE IDMS-TRACEABLE CREATININE METHODS. CLIN CHEM 2007;53:766-72 Performed By: #### C MP ####[facility] [place] [address] Glucose mass conc 66 mg/dL Low 74 - 99 [facility] Comment on above: Performed By: #### C MP ####[facility] [place] [address] Potassium molar conc 4.6 mmol/L Normal 3.5 - 5.3 [facility] Comment on above: Result Comment: MILD HEMOLYSIS DETECTED. The result may be falsely elevated due tohemolysis or other interferents. Clinical correlation is recommended.Repeat testing may be considered. Performed By: #### C MP ####[facility] [place] [address] Protein 6.4 g/dL Normal 6.4 - 8.2 [facility] Comment on above: Performed By: #### C MP ####[facility] [place] [address] Sodium 143 mmol/L Normal 136 - 145 [facility] Comment on above: Performed By: #### C MP ####[facility] [place] [address] Urea nitrogen 16 mg/dL Normal 6 - 23 [facility] Comment on above: Performed By: #### C MP ####[facility] [place] [address] TYPE + SCREENon 11-01-2017 ABO TYPE A Normal [facility] Comment on above: Performed By: #### T +S ####[facility] [place] [address] ANTIBODY SCREEN Negative Normal [facility] Comment on above: Performed By: #### T +S ####[facility] [place] [address] RH TYPE Negative Normal [facility] Comment on above: Performed By: #### T +S ####[facility] [place] [address] UA MICROSCOPICon 11-01-2017 Erythrocytes (RBC) 1 /HPF Normal 0-5 [facility] Comment on above: Performed By: #### U AMIC ####[facility] [place] [address] Urine, bacteria in sediment 1+ /HPF Abnormal [facility] Comment on above: Performed By: #### U AMIC ####[facility] [place] [address] Urine, mucus presence in sediment 1+ /LPF Normal [facility] Comment on above: Performed By: #### U AMIC ####[facility] [place] [address] WBC (Leukocytes) 1 /HPF Normal 0-5 [facility] Comment on above: Performed By: #### U AMIC ####[facility] [place] [address] URINALYSISon 11-01-2017 Bilirubin (total) Negative Normal NEGATIVE [facility] Comment on above: Performed By: #### U A ####[facility] [place] [address] BLOOD Negative Normal NEGATIVE [facility] Comment on above: Performed By: #### U A ####[facility] [place] [address] Glucose mass conc Negative Normal NEGATIVE [facility] Comment on above: Performed By: #### U A ####[facility] [place] [address] pH of blood 7.0 [pH] Normal 5.0 - 8.0 [facility] Comment on above: Performed By: #### U A ####[facility] [place] [address] Protein Negative Normal NEGATIVE [facility] Comment on above: Performed By: #### U A ####[facility] [place] [address] Urine, appearance CLEAR Normal [facility]AR [facility] Comment on above: Performed By: #### U A ####[facility] [place] [address] Urine, color STRAW Normal STRAW,YELLOW [facility] Comment on above: Performed By: #### U A ####[facility] [place] [address] Urine, ketones presence Negative Normal NEGATIVE [facility] Comment on above: Performed By: #### U A ####[facility] [place] [address] Urine, leukocyte esterase presence TRACE Abnormal NEGATIVE [facility] Comment on above: Performed By: #### U A ####[facility] [place] [address] Urine, nitrite presence Negative Normal NEGATIVE [facility] Comment on above: Performed By: #### U A ####[facility] [place] [address] Urine, specific gravity 1.008 Normal 1.005 - 1.035 [facility] Comment on above: Performed By: #### U A ####[facility] [place] [address] Urine, urobilinogen <2.0 Normal 0.0 - 1.9 [facility] [place] Comment on above: Performed By: #### U A ####[facility] [place] [address] URINE CULTURE,BACTERIALon URINE CULTURE,BACTERIAL PATIENT: HALLIE GUZMAN LOCATION: [facility]#: [id number] : 52 AGE: SEX: F ORDERED BY: CORNELIA MORGAN: URINE COLLECTED: 11/01/17 15:50ANTIBIOTICS AT JAYNE.: RECEIVED : 11/01/17 18:57SITE: Clean Catch/Voided R E S U L T S URINE CULTURE,BACTERIAL FINAL 11/02/17 12:50 MULTIPLE ORGANISMS PRESENT, PROBABLE CONTAMINATION PLEASE REPEAT CULTURE. Normal [facility] Comment on above: Performed By: #### U RINC ####[facility] [place] [address] Office Visit: Spine Visit- R sided neck painon 07-08-2017 Protein mass conc Done Invalid Interpretation Code [facility] Work Phone: Office Visit: Spine Visit- N EW'on 07-03-2017 Protein mass conc Done Invalid Interpretation Code [facility] Work Phone: Tobacco smoking status NHIS Never Invalid Interpretation Code [facility] Work Phone: Tobacco smoking status NMIS Never smoker Invalid Interpretation Code [facility] Work Phone: Vital Signs Date Time Vital Sign Value Performing Clinician Facility 06-17-2025 07:25-0400 Body temperature 97.2 [degF] Dr. Sarah Huynh MD Work Phone: [facility] 06-17-2025 07:25-0400 Diastolic blood pressure 52 mm[Hg] Dr. Sarah Huynh MD Work Phone: [facility] 06-17-2025 07:25-0400 Heart rate 65 /min Dr. Sarah Huynh MD Work Phone: [facility] 06-17-2025 07:25-0400 Respiratory rate 16 /min Dr. Sarah Huynh MD Work Phone: [facility] 06-17-2025 07:25-0400 SaO2% (BldA) [Mass fraction] 98 % Dr. Sarah Huynh MD Work Phone: [facility] 06-17-2025 07:25-0400 Systolic blood pressure 102 mm[Hg] Dr. Sarah Huynh MD Work Phone: [facility] 06-17-2025 05:55-0400 Body height 162.[address] Sarah Huynh MD Work Phone: [facility] 06-17-2025 05:55-0400 Body mass index (BMI) [Ratio] 25.7 kg/m2 Dr. Sarah Huynh MD Work Phone: [facility] 06-17-2025 05:55-0400 Body weight 68.[address] Sarah Huynh MD Work Phone: [facility] 12-19-2024 10:43-0400 Body mass index (BMI) [Ratio] 25.54 kg/m2 Viviana [place] [employer] Work Phone: [facility] 12-19-2024 10:43-0400 Body temperature 98.91 [degF] Viviana Micheline [employer] Work Phone: [facility] 12-19-2024 10:43-0400 Body weight 67.5 kg Viviana [place] [employer] Work Phone: [facility] 12-19-2024 10:43-0400 Diastolic blood pressure 84 mm[Hg] Viviana Micheline [employer] Work Phone: [facility] 12-19-2024 10:43-0400 Heart rate 92 /min Viviana [place] [employer] Work Phone: [facility] 12-19-2024 10:43-0400 Respiratory rate 16 /min Viviana Micheline [employer] Work Phone: [facility] 12-19-2024 10:43-0400 SaO2% (BldA) [Mass fraction] 95 % Viviana [place] [employer] Work Phone: [facility] 12-19-2024 10:43-0400 Systolic blood pressure 123 mm[Hg] Viviana Micheline [employer] Work Phone: [facility] 12-17-2024 16:48-0400 Body temperature 98.7 [degF] Dr. Sarah Huynh MD Work Phone: [facility] 12-17-2024 16:48-0400 Diastolic blood pressure 72 mm[Hg] Dr. Sarah Huynh MD Work Phone: [facility] 12-17-2024 16:48-0400 Heart rate 96 /min Dr. Sarah Huynh MD Work Phone: [facility] 12-17-2024 16:48-0400 Respiratory rate 15 /min Dr. Sarah Huynh MD Work Phone: [facility] 12-17-2024 16:48-0400 SaO2% (BldA) [Mass fraction] 96 % Dr. Sarah Huynh MD Work Phone: [facility] 12-17-2024 16:48-0400 Systolic blood pressure 118 mm[Hg] Dr. Sarah Huynh MD Work Phone: [facility] 12-08-2024 07:48-0400 Body height 162.[address] Sarah Huynh MD Work Phone: [facility] 12-08-2024 07:48-0400 Body mass index (BMI) [Ratio] 26.6 kg/m2 Dr. Sarah Huynh MD Work Phone: [phone] [place] [address] 12-08-2024 07:48-0400 Body weight 70.[address] Sarah Huynh MD Work Phone: 1(321)[phone] [place] [address] 12-08-2024 07:48-0400 Diastolic blood pressure 77 mm[Hg] Dr. Sarah Huynh MD Work Phone: [facility] 12-08-2024 07:48-0400 Heart rate 60 /min Dr. Sarah Huynh MD Work Phone: [facility] 12-08-2024 07:48-0400 Respiratory rate 18 /min Dr. Sarah Huynh MD Work Phone: [facility] 12-08-2024 07:48-0400 SaO2% (BldA) [Mass fraction] 97 % Dr. Sarah Huynh MD Work Phone: [facility] 12-08-2024 07:48-0400 Systolic blood pressure 120 mm[Hg] Dr. Sarah Hyunh MD Work Phone: [facility] 09-09-2024 11:55-0500 Body height 162.[address] Sarah Huynh MD Work Phone: [facility] 09-09-2024 11:55-0500 Body mass index (BMI) [Ratio] 26.6 kg/m2 Dr. Sarah Huynh MD Work Phone: [facility] 09-09-2024 11:55-0500 Body temperature 97.9 [degF] Dr. Sarah Huynh MD Work Phone: [facility] 09-09-2024 11:55-0500 Body weight 70.[address] Sarah Huynh MD Work Phone: [facility] 09-09-2024 11:55-0500 Diastolic blood pressure 80 mm[Hg] Dr. Sarah Huynh MD Work Phone: [facility] 09-09-2024 11:55-0500 Heart rate 74 /min Dr. Sarah Huynh MD Work Phone: [facility] 09-09-2024 11:55-0500 SaO2% (BldA) [Mass fraction] 98 % Dr. Sarah Huynh MD Work Phone: [facility] 09-09-2024 11:55-0500 Systolic blood pressure 124 mm[Hg] Dr. Sarah Huynh MD Work Phone: [facility] 04-01-2024 14:47-0400 Body mass index (BMI) [Ratio] 27.74 kg/m2 Cash Lama MD Work Phone: [facility] 04-01-2024 14:47-0400 Body weight 73.3 kg Cash Lama MD Work Phone: [facility] 04-01-2024 14:47-0400 Diastolic blood pressure 83 mm[Hg] Cash Lama MD Work Phone: [facility] 04-01-2024 14:47-0400 Heart rate 63 /min Cash Lama MD Work Phone: [facility] 04-01-2024 14:47-0400 SaO2% (BldA) [Mass fraction] 98 % Cash Lama MD Work Phone: [facility] 04-01-2024 14:47-0400 Systolic blood pressure 131 mm[Hg] Cash Lama MD Work Phone: [facility] 12-08-2023 09:14-0400 Body temperature 97.9 [degF] Dr. Sarah Huynh Work Phone: [facility] 12-08-2023 09:14-0400 Diastolic blood pressure 62 mm[Hg] Dr. Sarah Huynh Work Phone: [facility] 12-08-2023 09:14-0400 Heart rate 75 /min Dr. Sarah Huynh Work Phone: [facility] 12-08-2023 09:14-0400 Respiratory rate 16 /min Dr. Sarah Huynh Work Phone: [facility] 12-08-2023 09:14-0400 SaO2% (BldA) [Mass fraction] 97 % Dr. Sarah Huynh Work Phone: [facility] 12-08-2023 09:14-0400 Systolic blood pressure 132 mm[Hg] Dr. Sarah Huynh Work Phone: [facility] 10-19-2023 13:08-0500 Body temperature 98.1 [degF] Dr. Sarah Huynh Work Phone: [facility] 10-19-2023 13:08-0500 Diastolic blood pressure 76 mm[Hg] Dr. Sarah Huynh Work Phone: [facility] 10-19-2023 13:08-0500 Heart rate 98 /min Dr. Sarah Huynh Work Phone: [facility] 10-19-2023 13:08-0500 Respiratory rate 12 /min Dr. Sarah Huynh Work Phone: [facility] 10-19-2023 13:08-0500 SaO2% (BldA) [Mass fraction] 97 % Dr. Sarah Huynh Work Phone: [facility] 10-19-2023 13:08-0500 Systolic blood pressure 118 mm[Hg] Dr. Sarah Huynh Work Phone: [facility] 09-13-2023 13:45-0500 Body height 162.56 cm DO Cash Hugo Work Phone: [facility] 09-13-2023 13:45-0500 Body mass index (BMI) [Ratio] 28 kg/m2 DO Cash Hugo Work Phone: [facility] 09-13-2023 13:45-0500 Body temperature 97 [degF] DO Cash Hugo Work Phone: [facility] 09-13-2023 13:45-0500 Body weight 74.04 kg DO Cash Hugo Work Phone: [facility] 09-13-2023 13:45-0500 Diastolic blood pressure 78 mm[Hg] DO Cash Hugo Work Phone: [facility] 09-13-2023 13:45-0500 Heart rate 59 /min DO Cash Hugo Work Phone: [facility] 09-13-2023 13:45-0500 Respiratory rate 17 /min DO Cash Hugo Work Phone: [facility] 09-13-2023 13:45-0500 SaO2% (BldA) [Mass fraction] 99 % DO Cash Hugo Work Phone: [facility] 09-13-2023 13:45-0500 Systolic blood pressure 125 mm[Hg] DO Cash Hugo Work Phone: [facility] 06-28-2023 11:57-0400 Body temperature 98.3 [degF] DO Cash Hugo Work Phone: [facility] 06-28-2023 11:57-0400 Diastolic blood pressure 82 mm[Hg] DO Cash Hugo Work Phone: [facility] 06-28-2023 11:57-0400 Heart rate 73 /min DO Cash Hugo Work Phone: [facility] 06-28-2023 11:57-0400 Respiratory rate 14 /min DO Cash Arias Work Phone: [facility] 06-28-2023 11:57-0400 SaO2% (BldA) [Mass fraction] 96 % DO Cash Arias Work Phone: [facility] 06-28-2023 11:57-0400 Systolic blood pressure 137 mm[Hg] DO Cash Arias Work Phone: [facility] 04-10-2023 13:37-0400 Body weight 74.[address] Ash Roberts Work Phone: [facility] 04-10-2023 13:37-0400 Diastolic blood pressure 72 mm[Hg] Dr. Ash Roberts Work Phone: [facility] 04-10-2023 13:37-0400 Heart rate 73 /min Dr. Ash Roberts Work Phone: [facility] 04-10-2023 13:37-0400 Respiratory rate 18 /min Dr. Ash Roberts Work Phone: [facility] 04-10-2023 13:37-0400 Systolic blood pressure 122 mm[Hg] Dr. Ash Roberts Work Phone: [facility] 04-10-2023 09:41-0400 Body height 162.[address] Ash Roberts Work Phone: [facility] 04-08-2023 09:22-0400 Body height 162.6 cm Heather Sneed MD Work Phone: [facility] 04-08-2023 09:22-0400 Body weight 74.53 kg Heather Sneed MD Work Phone: [facility] 04-08-2023 09:22-0400 Diastolic blood pressure 82 mm[Hg] Heather Sneed MD Work Phone: [facility] 04-08-2023 09:22-0400 Heart rate 92 /min Heather Sneed MD Work Phone: [facility] 04-08-2023 09:22-0400 Systolic blood pressure 127 mm[Hg] Heather Sneed MD Work Phone: [facility] 03-13-2023 13:58-0400 Body height 162.[address] Ash Roberts Work Phone: [facility] 03-13-2023 13:58-0400 Body mass index (BMI) [Ratio] 28.1 kg/m2 Dr. Ash Roberts Work Phone: [facility] 03-13-2023 13:58-0400 Body weight 74.[address] Ash Roberts Work Phone: [facility] 03-13-2023 13:58-0400 Diastolic blood pressure 78 mm[Hg] Dr. Ash Roberts Work Phone: [facility] 03-13-2023 13:58-0400 Heart rate 74 /min Dr. Ash Roberts Work Phone: [facility] 03-13-2023 13:58-0400 SaO2% (BldA) [Mass fraction] 96 % Dr. Ash Roberts Work Phone: [facility] 03-13-2023 13:58-0400 Systolic blood pressure 117 mm[Hg] Dr. Ash Roberts Work Phone: [facility] 03-12-2023 06:39-0400 Body temperature 97.8 [degF] Dr. Ash Roberts Work Phone: [facility] 03-12-2023 06:39-0400 Diastolic blood pressure 86 mm[Hg] Dr. Ash Roberts Work Phone: [facility] 03-12-2023 06:39-0400 Heart rate 84 /min Dr. Ash Roberts Work Phone: [facility] 03-12-2023 06:39-0400 Respiratory rate 16 /min Dr. Ash Roberts Work Phone: [facility] 03-12-2023 06:39-0400 SaO2% (BldA) [Mass fraction] 99 % Dr. Ash Roberts Work Phone: [facility] 03-12-2023 06:39-0400 Systolic blood pressure 128 mm[Hg] Dr. Ash Roberts Work Phone: [facility] 12-24-2022 13:20-0400 Body temperature 97.59 [degF] Heather Sneed MD Work Phone: [facility] 12-24-2022 13:20-0400 Body weight 72.76 kg Heather Sneed MD Work Phone: [facility] 12-24-2022 13:20-0400 Diastolic blood pressure 74 mm[Hg] Heather Sneed MD Work Phone: [facility] 12-24-2022 13:20-0400 Heart rate 72 /min Heather Sneed MD Work Phone: [facility] 12-24-2022 13:20-0400 Systolic blood pressure 139 mm[Hg] Heather Sneed MD Work Phone: [facility] 09-10-2022 10:01-0500 Body height 162.[address] Genevieve Graham Work Phone: [facility] 09-10-2022 10:01-0500 Body mass index (BMI) [Ratio] 27.4 kg/m2 Dr. Genevieve Graham Work Phone: [facility] 09-10-2022 10:01-0500 Body weight 72.[address] Genevieve Graham Work Phone: [facility] 09-10-2022 10:01-0500 Diastolic blood pressure 80 mm[Hg] Dr. Genevieve Graham Work Phone: [facility] 09-10-2022 10:01-0500 Heart rate 60 /min Dr. Genevieve Graham Work Phone: [facility] 09-10-2022 10:01-0500 SaO2% (BldA) [Mass fraction] 98 % Dr. Genevieve Graham Work Phone: [facility] 09-10-2022 10:01-0500 Systolic blood pressure 125 mm[Hg] Dr. Genevieve Graham Work Phone: [facility] 04-19-2022 07:57-0400 Body weight 70.31 kg Parul Cummings SUPERVISING AIRPLANE PILOT.REPAIR WELDER Work Phone: [facility] 04-19-2022 07:57-0400 Diastolic blood pressure 80 mm[Hg] Parul Cummings SUPERVISING AIRPLANE PILOT.REPAIR WELDER Work Phone: [facility] 04-19-2022 07:57-0400 Heart rate 69 /min Parul Cummings SUPERVISING AIRPLANE PILOT.REPAIR WELDER Work Phone: [facility] 04-19-2022 07:57-0400 Respiratory rate 16 /min Parul Cummings SUPERVISING AIRPLANE PILOT.REPAIR WELDER Work Phone: [facility] 04-19-2022 07:57-0400 SaO2% (BldA) [Mass fraction] 98 % Parul Cummings SUPERVISING AIRPLANE PILOT.REPAIR WELDER Work Phone: [facility] 04-19-2022 07:57-0400 Systolic blood pressure 118 mm[Hg] Parul Cummings SUPERVISING AIRPLANE PILOT.REPAIR WELDER Work Phone: [facility] 02-06-2022 08:44-0400 Body height 162.[address] Genevieve Graham Work Phone: [facility] Work Phone: 02-06-2022 08:44-0400 Body mass index (BMI) [Ratio] 27.4 kg/m2 Dr. Genevieve Graham Work Phone: [facility] Work Phone: 02-06-2022 08:44-0400 Body weight 72.[address] Genevieve Graham Work Phone: [facility] Work Phone: 02-06-2022 08:44-0400 Diastolic blood pressure 80 mm[Hg] Dr. Genevieve Graham Work Phone: [facility] Work Phone: 02-06-2022 08:44-0400 Systolic blood pressure 130 mm[Hg] Dr. Genevieve Graham Work Phone: [facility] Work Phone: 01-30-2022 09:40-0400 Body weight 72.58 kg Parul Cummings SUPERVISING AIRPLANE PILOT.REPAIR WELDER Work Phone: [facility] 01-30-2022 09:40-0400 Diastolic blood pressure 78 mm[Hg] Parul Cummings SUPERVISING AIRPLANE PILOT.REPAIR WELDER Work Phone: [facility] 01-30-2022 09:40-0400 Heart rate 84 /min Parul Cummings SUPERVISING AIRPLANE PILOT.REPAIR WELDER Work Phone: [facility] 01-30-2022 09:40-0400 Respiratory rate 16 /min Parul Cummings SUPERVISING AIRPLANE PILOT.REPAIR WELDER Work Phone: [facility] 01-30-2022 09:40-0400 Systolic blood pressure 130 mm[Hg] Parul Cummings SUPERVISING AIRPLANE PILOT.REPAIR WELDER Work Phone: [facility] 10-22-2021 10:28-0500 Body height 164.[address] Genevieve Graham Work Phone: [facility] Work Phone: 10-22-2021 10:28-0500 Body mass index (BMI) [Ratio] 26.2 kg/m2 Dr. Genevieve Graham Work Phone: [facility] Work Phone: 10-22-2021 10:28-0500 Body temperature 98.7 [degF] Dr. Genevieve Graham Work Phone: [facility] Work Phone: 10-22-2021 10:28-0500 Body weight 70.[address] Genevieve Graham Work Phone: [facility] Work Phone: 10-22-2021 10:28-0500 Diastolic blood pressure 82 mm[Hg] Dr. Genevieve Graham Work Phone: [facility] Work Phone: 10-22-2021 10:28-0500 Heart rate 92 /min Dr. Genevieve Graham Work Phone: [facility] Work Phone: 10-22-2021 10:28-0500 Respiratory rate 18 /min Dr. Genevieve Graham Work Phone: [facility] Work Phone: 10-22-2021 10:28-0500 SaO2% (BldA) [Mass fraction] 95 % Dr. Genevieve Graham Work Phone: [facility] Work Phone: 10-22-2021 10:28-0500 Systolic blood pressure 126 mm[Hg] Dr. Genevieve Graham Work Phone: [facility] Work Phone: 07-03-2017 10:09-0400 BMI (Body Mass Index) 28.26 kg/m2 [facility] Work Phone: 07-03-2017 10:09-0400 Height 163.07 cm [facility] Work Phone: 07-03-2017 10:09-0400 Pulse (Heart Rate) 85 /min [facility] Work Phone: 07-03-2017 10:09-0400 Respiratory Rate 22 /min [facility] Work Phone: 07-03-2017 10:09-0400 Weight 75.16 kg [facility] Work Phone: NEGATED: Highlighted [id number] 08:25-0400 Body height 162.56 cm Mary Ann Kong LPN [facility] Work Phone: NEGATED: Highlighted [id number] 08:25-0400 Body height 163 cm Mary Ann Kong LPN [facility] Work Phone: NEGATED: Highlighted [id number] 08:25-0400 Body mass index (BMI) [Ratio] 27.56 kg/m2 Mary Ann Kong LPN [facility] Work Phone: NEGATED: Highlighted [id number] 08:25-0400 Body weight 72.58 kg Mary Ann Kong LABORATORY CHIEF [facility] Work Phone: NEGATED: Highlighted [id number] 08:25-0400 Body weight 73 kg Mary Ann Kong [facility] Work Phone: Encounters Encounter Date Encounter Type Care Provider Facility Start: 06-17-2025 ambulatory Sarah Dejack Facility: [facility] Start: 06-17-2025 Non-patient / Non-visit Bridger Espinoza nd DO -[facility] Start: 06-17-2025 End: 06-17-2025 Admission to same day surgery center Bridger Lanier DO -Endoscopy Work Phone: Start: 06-17-2025 End: 06-17-[address] Sarah Huynh MD Work Phone: -Endoscopy Start: 06-11-2025 Patient encounter procedure Estefany REYES -[facility] Work Phone: Start: 06-11-2025 End: 06-11-2025 ambulatory Sarah Huynh Facility:[facility] Start: 04-13-2025 End: 04-13-2025 [facility] Start: 04-13-2025 End: 04-13-[address] Sarah Huynh MD Work Phone: -[facility] Start: 04-05-2025 End: 04-05-[address] Sarah Huynh MD Work Phone: -Cardiovascular Services Start: 04-05-2025 End: 04-05-[address] Tony Bolden MD -Cardiovascular Services Work Phone: Start: 04-05-2025 End: 04-05-2025 ambulatory Sarah Huynh Facility:[facility] Start: 02-26-2025 End: 02-26-[address] Sarah Huynh MD Work Phone: [facility] Work Phone: Start: 02-26-2025 End: 02-26-2025 Patient encounter procedure Juany Roberto TOOL GRINDER SET UP OPERATOR GEAR-Mary -Outpatient Breast Imaging Work Phone: Start: 02-26-2025 End: 02-26-[facility] Start: 12-19-2024 End: 12-19-2024 Subsequent hospital visit by physician Xr [facility] Work Phone: Radiology Comment on above: Acute cough [R05.1] Start: 12-19-2024 End: 12-19-2024 Office outpatient visit 25 minutes Viviana Tobias APRN.SHOULDER BONER Work Phone: [facility] Comment on above: Acute cough (Primary Dx); Influenza A Start: 12-19-2024 End: 12-19-2024 ambulatory CASH ARIAS Facility:[facility] Start: 12-17-2024 End: 12-17-2024 Patient encounter procedure Ramone Amaya [facility] Work Phone: Start: 12-17-2024 End: 12-17-2024 ambulatory Sarah Huynh Facility:[facility] Start: 12-10-2024 End: 12-10-[address] Sarah Huynh MD Work Phone: [facility] Work Phone: Start: 12-10-2024 End: 12-10-[address] Sarah Huynh MD -Laboratory, Nicolás Lu [facility] Start: 12-10-2024 End: 12[facility] Start: 12-08-2024 End: 12-08-2024 Patient encounter procedure Jazzy Altamirano PA -[facility] Work Phone: Start: 12-08-2024 End: 12-08-2024 ambulatory Asrah Stephanie Facility:[facility] Start: 12-04-2024 End: 12-04-[address] Sarah Huynh MD Work Phone: [facility] Work Phone: Start: 12-04-2024 End: 12-04-2024 Patient encounter procedure Jazzy REYES -Laboratory Work Phone: Start: 12-04-2024 End: 12-04-[facility] Start: 10-23-2024 End: 10-23-2024 Patient encounter procedure Estefany REYES -[facility] Work Phone: Start: 10-23-2024 End: 10-23-20[facility] Start: 10-23-2024 End: 10-23-2024 ambulatory [facility] Facility:[facility] Start: 09-09-2024 End: 09-09-2024 Patient encounter procedure Gus Lomeli PA -[facility] Work Phone: Start: 09-09-2024 End: 09-09-2024 ambulatory Sarah Stephanie Facility:[facility] Start: 04-01-2024 End: 04-01-2024 ambulatory CASH LAMA Facility:[facility] Start: 04-01-2024 End: 04-01-2024 Office outpatient visit 25 minutes Cash Lama MD Work Phone: Neurology Comment on above: Essential tremor; RLS (restless legs syndrome) Start: 01-01-2024 Refill Cash daniel MD Work Phone: Neurology Comment on above: Refill Request Start: 12-17-2023 End: 12-17-[address] Sarah Huynh Work Phone: [facility] Work Phone: Start: 12-17-2023 End: 12-17-[address] Sarah Huynh Work Phone: [facility]-Cat Scan, [facility] Work Phone: Start: 12-08-2023 End: 12-08-[address] Sarah Huynh Work Phone: [facility] Work Phone: Start: 10-24-2023 End: 10-24-[address] Sarah Huynh Work Phone: [facility] Work Phone: Start: 10-24-2023 End: 10-24-[address] Sarah uHynh Work Phone: [facility]-Laboratory Work Phone: Start: 10-24-2023 End: 10-24-[address] Sarah Huynh Work Phone: [facility] Work Phone: Start: 10-19-2023 End: 10-19-[address] Sarah Huynh Work Phone: [facility] Work Phone: Start: 10-08-2023 End: 10-08-2023 ambulatory DO Cash Arias Work Phone: [facility] Work Phone: Start: 10-08-2023 End: 10-08-2023 Patient encounter procedure DO Cash [facility] Start: 09-13-2023 End: 09-13-2023 Patient encounter procedure DO Cash Arias Work Phone: [facility] Work Phone: Start: 09-04-2023 End: 09-04-2023 ambulatory DO Cash Arias Work Phone: [facility] Work Phone: Start: 09-04-2023 End: 09-04-2023 Patient encounter procedure DO Cash [facility] Start: 08-07-2023 End: 08-07-2023 Patient encounter procedure DO Cash [facility]as [facility] Start: 06-28-2023 End: 06-28-2023 Patient encounter procedure DO Cash Arias Work Phone: [facility] Work Phone: Start: 04-18-2023 Non-patient / Non-visit Dr. Ray Roberts Work Phone: [facility] Work Phone: Start: 04-18-2023 Non-patient / Non-visit Dr. Ray Roberts Work Phone: [facility] Start: 04-18-2023 End: 04-18-[address] Ash Roberts [facility] Work Phone: Start: 04-10-2023 End: 04-10-[address] Ash Roberts Work Phone: [facility] Work Phone: Start: 04-09-2023 End: 04-09-[address] Ash Roberts Work Phone: [facility] Work Phone: Start: 04-09-2023 End: 04-09-[address] Ash Roberts Work Phone: [facility]-Physical Therapy Work Phone: Start: 04-08-2023 Telephone encounter Heather Sneed MD Work Phone: Neurology Comment on above: [facility] Start: 04-08-2023 End: 04-08-[address] [facility] Facility:[facility] Start: 04-08-2023 End: 04-08-2023 Patient encounter procedure Heather Sneed MD Work Phone: Neurology Comment on above: Polyneuropathy (Prim lalit Dx); Numbness and tingling of both lower extremities; Tremor, essential; Essential hypertension, ; Hyperlipidemia LDL goal <100; Hypothyroidism, unspecified type; DDD (degenerative disc disease), lumbar; Restless legs syndrome Start: 03-14-[address] Ash Roberts Work Phone: [facility]-Physical Therapy Start: 03-13-2023 End: 03-13-[address] Ash Roberts Work Phone: [facility] Start: 03-12-2023 End: 03-12-[address] Ash Roberts Work Phone: [facility] Work Phone: Start: 03-12-2023 End: 03-12-[address] Ash Roberts Work Phone: [facility]-Laboratory, Specimen Start: 03-12-2023 End: 03-12-[address] Ash Roberts Work Phone: [facility] Start: 03-05-2023 End: 03-05-[address] Ash Roberts Work Phone: [facility]-Ultrasound, [facility] Start: 02-21-2023 End: 02-21-[address] Ash Roberts Work Phone: [facility]-Outpatient Breast Imaging Start: 01-10-2023 Non-patient / Non-visit Dr. Ray Roberts Work Phone: [facility] Start: 01-10-[address] [facility] Work Phone: [facility]-Cardiovascular Services Start: 01-01-2023 ambulatory Yomaira stewart MA [facility] [place] Comment on above: Population Health Na vigation Outreach ([facility]) Start: 12-24-2022 End: 12-25-2022 ambulatory GENEVIEVE GRAHAM Facility:[facility] Start: 12-24-2022 End: 12-24-2022 ambulatory HEATHER SNEED Facility:[facility] Start: 12-24-2022 End: 12-24-2022 Patient encounter procedure Heather Sneed MD Work Phone: Neurology Comment on above: Polyneuropathy (Prim lalit Dx); Other dietary vitamin B12 deficiency anemia ; Encounter for screening for human immunodeficiency virus (HIV) ; Restless legs syndrome; Tremor, essential; Lumbar radiculopathy; Essential hypertension, ; Hyperlipidemia LDL goal <100; DDD (degenerative disc disease), lumbar Start: 11-06-2022 ambulatory Yomaira stewart MA [facility] [place] Comment on above: Population Health [facility] Start: 10-04-2022 End: 10-04-[address] Genevieve Graham Work Phone: [facility] Work Phone: Start: 10-04-2022 End: 10-04-[address] Genevieve Graham Work Phone: [facility]-Laboratory Start: 09-27-2022 End: 09-27-[address] Genevieve Graham Work Phone: [facility] Work Phone: Start: 09-27-2022 End: 09-27-[address] Genevieve Graham Work Phone: [facility], [facility] Start: 09-10-2022 End: 09-10-[address] Genevieve Graham Work Phone: [facility] Work Phone: Start: 09-10-2022 End: 09-10-[address] Genevieve Graham Work Phone: [facility] Gastroenterology Start: 08-07-2022 End: 08-07-[address] Genevieve Graham Work Phone: [facility] Work Phone: Start: 08-07-2022 End: 08-07-[address] Genevieve Graham Work Phone: [facility] Start: 08-01-2022 End: 08-01-[address] Genevieve Graham Work Phone: [facility] Work Phone: Start: 08-01-2022 End: 08-01-[address] Genevieve Graham Work Phone: [facility] Start: 07-25-2022 End: 07-25-[address] Genevieve Graham Work Phone: [facility] Work Phone: Start: 07-25-2022 End: 07-25-[address] Genevieve Graham Work Phone: [facility]-Nuclear Medicine, [facility] Start: 07-18-2022 End: 07-18-[address] Genevieve Graham Work Phone: [facility] Work Phone: Start: 07-18-2022 End: 07-18-[address] Genevieve Graham Work Phone: [facility]-Laboratory Start: 07-17-2022 Refill Parul Cummings APRN.REPAIR WELDER Work Phone: [facility] Comment on above: Refill Request Start: 07-02-2022 End: 07-02-[address] Genevieve Graham Work Phone: [facility] Work Phone: Start: 07-02-2022 End: 07-02-[address] Genevieve Graham Work Phone: [facility] Gastroenterology Start: 05-22-2022 End: 05-22-[address] Genevieve Graham Work Phone: [facility] Work Phone: Start: 05-22-2022 End: 05-22-[address] Genevieve Graham Work Phone: [facility] Start: 04-19-2022 Telephone encounter Genevieve jonas MD Work Phone: [facility] [place] Comment on above: Fax Referral Start: 04-19-2022 End: 04-19-2022 Patient encounter procedure Parul Cummings APRN.REPAIR WELDER Work Phone: [facility] [place] Comment on above: Epigastric pain (Dipika william Dx); Nausea; Chronic nausea; Chronic constipation; Gastroesophageal reflux disease without esophagitis Start: 04-13-2022 End: 04-13-[address] Genevieve Graham Work Phone: [facility]-Physical Therapy Start: 02-16-2022 Refill [facility] Provider [facility] Oleksandr shine [place] Comment on above: Refill Request Start: 02-09-2022 ambulatory Esperanza Levine RN NURSE STITCHER OPERATOR Comment on above: Rectal Problem Start: 02-06-2022 End: 02-06-[address] Genevieve Graham Work Phone: [facility] Start: 02-05-2022 Telephone encounter Parul costa SUPERVISING AIRPLANE PILOT.REPAIR WELDER Work Phone: [facility] Medicine [place] Comment on above: Results, Lab Start: 01-30-2022 End: 01-30-2022 Patient encounter procedure Parul Cummings SUPERVISING AIRPLANE PILOT.REPAIR WELDER Work Phone: [facility] [place] Comment on above: Hypothyroidism, unsp ecified type (Primary Dx); Vitamin D deficiency; Gastroesophageal reflux disease without esophagitis; Numbness and tingling of both lower extremities; Extremity numbness; Hyperlipidemia LDL goal <100; Acute pain of left knee Start: 01-18-2022 ambulatory No Pcp [facility] Start: 01-10-2022 End: 01-10-2022 Subsequent hospital visit by physician Linda [facility] Work Phone: Radiology Comment on above: Acute pain of left k nee [M25.562] Start: 01-10-2022 Telephone encounter Deep Blanco DO Work Phone: Radiology Comment on above: Release Of Medical R ecords Start: 01-09-2022 End: 01-09-[address] Genevieve Graham Work Phone: [facility] Start: 12-27-2021 Telephone encounter Genevieve jonas MD Work Phone: Internal Medicine [place] Comment on above: Results, Lab Start: 10-22-2021 End: 10-22-[address] Genevieve Graham Work Phone: [facility] Start: 10-03-2021 End: 10-03-[address] Genevieve Graham Work Phone: [facility] Start: 04-04-2021 End: 04-04-2021 Subsequent hospital visit by physician Linda [facility] Work Phone: Radiology Comment on above: Acute constipation [ K59.00] Start: 02-04-2018 Ambulatory ERICKA GONZALEZ Facilit y:[facility] Start: 12-24-2017 Ambulatory ERICKA A CARLOS Facilit y:[facility] Start: 11-11-2017 Telephone encounter Nahed Lau bul Work Phone: [facility] Work Phone: Start: 11-11-2017 End: 11-15-2017 Evaluation and management of inpatient Loree Morgan Facility:[facility] Start: 11-01-2017 Ambulatory Loree Morgan Faci lity:[facility] Start: 10-22-2017 Office consultation new/estab patient 30 min Nahed Bradshaw Cebul Work Phone: [id number] Work Phone: Procedures Date Procedure Procedure Detail Performing Clinician Start: 06-17-[address] Sarah Huynh MD Work Phone: Start: 06-11-2025 Ultrasound elastogra phy of liver Dr. Sarah Huynh MD Work Phone: Start: 02-26-2025 Screening mammography Mounika Huynh MD [...] scrn no perf at interval Chance W Hipcricket Work Phone: Start: 01-11-2022 End: 01-11-2022 Calc BMI out nrm niesha nof/u Chance W [employer] Work Phone: Start: 01-11-2022 End: 01-11-2022 Current tobacco non-user cad cap copd pv dm Chance W [employer] Work Phone: Start: 01-11-2022 End: 01-11-2022 Docrev cur meds by elimir clin Chance W Hipc[employer]et Work Phone: Start: 01-11-2022 End: 01-11-2022 Pain doc pos and plan Chance W [employer] Work Phone: Start: 01-11-2022 End: 01-11-2022 Patient encounter procedure Chance W Hipc[employer]et Work Phone: Start: 01-10-2022 Radiologic exam knee complete 4/more views Rosy Donis APRN.CNP Work Phone: Start: 01-09-2022 MRI of brain with contrast Dr. Genevieve Graham Work Phone: Start: 10-17-2021 Adult depression screening assessment Genevieve Graham MD Work Phone: Start: 04-04-2021 Radiologic exam abdo men 1 view Lonnie Ramírez MD Work Phone: Start: 05-30-2020 Colonoscopy Genevieve simms MD Work Phone: Start: 02-02-2020 Mammography Genevieve simms MD Work Phone: Start: 11-11-2017 Resection of Sigmoid Colon, Open Approach Loree Mariella Start: 07-03-2017 End: 07-04-2017 Chiropractic manipulative tx [...] panel - Serum or Plasma Lipid Screening [facility] Start: 02-03-2027 Lipid panel Lipid Screening [facility] Start: 02-03-2027 LIPID SCREEN LIPID SCREEN [facility] Start: 2026 RSV Vaccine (1 - 1-dose 75+ series) RSV Vaccine (1 - 1-dose 75+ series) [facility] Start: 10-28-2025 LIPID SCREEN LIPID SCREEN [facility] Start: 06-17-2025 Patient discharge [facility] Start: 05-30-2025 Colonoscopy COLONOSCOPY [facility] Start: 05-30-2025 COLORECTAL CANCER SCREENING COLORECTAL CANCER SCREENING [facility] Start: 05-30-2025 Screening for malignant neoplasm of colon [facility] Start: 12-22-2024 DIABETES SCREEN DIABETES SCREEN [facility] Start: 12-22-2024 Diabetes Screening Diabetes Screening [facility] Start: 09-30-2024 Advance Directive Discussion Advance Directive Discussion [facility] Start: 07-01-2024 BP Controlled (<130/80) BP Controlled (<130/80) [facility] Start: 05-31-2024 Covid-19 Vaccine () Covid-19 Vaccine () [facility] Start: 05-31-2024 [facility]enza [facility] Start: 09-30-2023 Advance Directive Discussion Advance Directive Discussion [facility] Start: 09-30-2023 Behavioral Health Screening Behavioral Health Screening [facility] Start: 05-31-2023 Covid-19 Vaccine () Covid-19 Vaccine () [facility] Start: 05-31-2023 Influenza vaccination [facility] Start: 04-19-2023 BP CONTROLLED (<130/80) BP CONTROLLED (<130/80) [facility] Start: 02-06-2023 Mammography [facility] Start: 02-06-2023 Screening for malignant neoplasm of breast Mammogram Screening [facility] Start: 01-10-2023 BP CONTROLLED (<130/80) BP CONTROLLED (<130/80) [facility] Start: 12-24-2022 End: 02-23-2023 Alpha tocopherol [Mass/volume] in Serum or Plasma [facility] Work Phone: Comment on above: Expected: 12/24/2022, Expires: 3 Start: 12-24-2022 End: 02-23-2023 COPPER BLOOD [facility] Work Phone: Comment on above: Expected: 12/24/2022, Expires: 3 Start: 12-24-2022 End: 02-23-2023 Extractable nuclear Ab panel - Serum [facility] Work Phone: Comment on above: Expected: 12/24/2022, Expires: 3 Start: 12-24-2022 End: 02-23-2023 HIV 1+2 Ab [Presence] in Serum or Plasma by Immunoassay [facility] Work Phone: Comment on above: Expected: 12/24/2022, Expires: 3 Start: 12-24-2022 End: 02-23-2023 Methylmalonate [Moles/volume] in Serum or Plasma [facility] Work Phone: Comment on above: Expected: 12/24/2022, Expires: 3 Start: 12-24-2022 End: 02-23-2023 Nuclear Ab [Presence] in Serum by Immunoassay [facility] Work Phone: Comment on above: Expected: 12/24/2022, Expires: 3 Start: 12-24-2022 End: 02-23-2023 PROTEIN ELECT RND UR W/INTERP [facility] Work Phone: Comment on above: Expected: 12/24/2022, Expires: 3 Start: 12-24-2022 End: 02-23-2023 PROTEIN ELECTROPHORESIS SERUM W/INTERP [facility] Work Phone: Comment on above: Expected: 12/24/2022, Expires: 3 Start: 12-24-2022 End: 02-23-2023 SYPHILIS TOTAL W/REFLEX [facility] Work Phone: Comment on above: Expected: 12/24/2022, Expires: 3 Start: 10-17-2022 Adult depression screening assessment DEPRESSION SCREENING [facility] Start: 10-17-2022 ANNUAL PCP TEAM CHRONIC DISEASE VISIT ANNUAL PCP TEAM CHRONIC DISEASE VISIT [facility] Start: 10-17-2022 BP CONTROLLED (<130/80) BP CONTROLLED (<130/80) [facility] Start: 10-17-2022 Urine microalbumin profile DTAP,TDAP,TD (1 - Tdap) [facility] Comment on above: Postponed from 06/26/2006 (Insurance Cov erage) Start: 10-01-2022 SHINGRIX VACCINE (2 of 3) SHINGRIX VACCINE (2 of 3) [facility] Comment on above: Postponed from 08/21/2013 (Insurance Cov erage) Start: 09-30-2022 ADVANCE DIRECTIVE DISCUSSION ADVANCE DIRECTIVE DISCUSSION [facility] Start: 01-01-2023 DEPRESSION ASSESSMENT DEPRESSION ASSESSMENT [facility] Start: 08-14-2022 ANNUAL PCP TEAM CHRONIC DISEASE VISIT ANNUAL PCP TEAM CHRONIC DISEASE VISIT [facility] Start: 08-08-2022 End: 10-08-2022 LIPID PANEL BASIC LIPID PANEL BASIC Lab Routine Hyperlipidemia LDL goal <100 Expected: 08/08/2022 (Approximate), Expires: 10/08/[address] [facility] Work Phone: Comment on above: Expected: 08/08/2022 (Approximate), Expi res: 10/08/2022 Start: 08-02-2022 End: 10-02-2022 CBC W Auto Differential panel - Blood CBC + DIFF Lab Routine Gastroesophageal reflux disease without esophagitis Expected: 08/02/2022 (Approximate), Expires: 10/02/[address] [facility] Work Phone: Comment on above: Expected: 08/02/2022 (Approximate), Expi res: 10/02/2022 Start: 08-02-2022 End: 10-02-2022 Comprehensive metabolic 2000 panel - Serum or Plasma COMP METABOLIC PANEL Lab Routine Hypothyroidism, unspecified type Gastroesophageal reflux disease without esophagitis Expected: 08/02/2022 (Approximate), Expires: 10/02/[address] [facility] Work Phone: Comment on above: Expected: 08/02/2022 (Approximate), Expi res: 10/02/2022 Start: 08-02-2022 End: 10-02-2022 Thyrotropin [Units/volume] in Serum or Plasma TSH BLD Lab Routine Hypothyroidism, unspecified type Expected: 08/02/2022 (Approximate), Expires: 10/02/[address] [facility] Work Phone: Comment on above: Expected: 08/02/2022 (Approximate), Expi res: 10/02/2022 Start: 07-02-2022 Gastrin [Mass/volume] in Serum or Plasma [facility] Work Phone: Start: 07-02-2022 Immunoglobulin measurement [facility] Work Phone: Start: 07-02-2022 Serum immunofixation [facility] Work Phone: Start: 07-02-2022 [facility] Work Phone: Start: 05-31-2022 Influenza vaccination INFLUENZA (#1) [facility] Start: 01-30-2022 End: 04-01-2022 LIPID PANEL, NONFASTING LIPID PANEL, NONFASTING Lab Routine Hyperlipidemia LDL goal <100 Expected: 01/30/2022, Expires: 04/01/[address] [facility] Work Phone: Comment on above: Expected: 01/30/2022, Expires: 2 Start: 01-30-2022 End: 04-01-2022 VITAMIN D 25 HYDROXY VITAMIN D 25 HYDROXY Lab Routine Vitamin D deficiency Expected: 01/30/2022, Expires: 04/01/[address] [facility] Work Phone: Comment on above: Expected: 01/30/2022, Expires: 2 Start: 01-24-2022 End: 01-24-2022 Patient encounter procedure Appointment [facility] Work Phone: Start: 01-11-2022 End: 01-11-2022 Patient encounter procedure Appointment [facility] Work Phone: Start: 01-11-2022 End: 01-11-2022 Mri any jt lower extrem w/o contrast matrl MRI left knee without contrast [facility] Work Phone: Start: 09-30-2021 ADVANCE DIRECTIVE DISCUSSION ADVANCE DIRECTIVE DISCUSSION [facility] Start: 09-30-2021 DEPRESSION ASSESSMENT DEPRESSION ASSESSMENT [facility] Start: 05-24-2021 COVID-19 VACCINE (3 - Booster for Moderna series) COVID-19 VACCINE (3 - Booster for Moderna series) [facility] Start: 02-16-2021 COVID-19 VACCINE (3 - Booster for Moderna series) COVID-19 VACCINE (3 - Booster for Moderna series) [facility] Start: 02-16-2021 COVID-19 VACCINE (3 - Moderna series) COVID-19 VACCINE (3 - Moderna series) [facility] Start: 02-01-2021 Mammography MAMMOGRAM [facility] Start: 07-11-2017 End: 07-11-2017 Appointment Appointment [facility] Work Phone: Start: 07-08-2017 End: 07-08-2017 Appointment Appointment [facility] Work Phone: Start: 07-03-2017 End: 07-04-2017 Follow up Appt 2x/week Follow up Appt 2x/week [facility] Work Phone: Start: 08-21-2013 SHINGRIX VACCINE (2 of 3) SHINGRIX VACCINE (2 of 3) [facility] Start: 03-24-2013 Screening for malignant neoplasm of colon Sigmoidoscopy [facility] Start: 03-24-2013 SIGMOIDOSCOPY SIGMOIDOSCOPY [facility] Start: 2011 RSV Vaccine (1 - 1-dose 60+ series) RSV Vaccine (1 - 1-dose 60+ series) [facility] Start: 11-07-2007 FECAL OCCULT BLOOD FECAL OCCULT BLOOD [facility] Start: 11-07-2007 Screening for malignant neoplasm of colon Fecal Occult Blood [facility] Start: 06-26-2006 Urine microalbumin profile [facility] Start: 1996 COLOGUARD (FIT-DNA) COLOGUARD (FIT-DNA) [facility] Start: [address] COLONOGRAPHY [facility] Start: 1996 Screening for malignant neoplasm of colon [facility] Start: 1969 Anxiety Screening Anxiety Screening [facility] Start: 1969 BP CONTROLLED (<130/80) BP CONTROLLED (<130/80) [facility] Start: 1969 Depression Screening Depression Screening [facility] Albumin [Moles/volum e] in Serum or Plasma [facility] Work Phone: Albumin/Globulin ratio [facility] Work Phone: Electrophoresis: [id number] [facility] Work Phone: Electrophoresis: shun ma globulin [facility] Work Phone: Gastrin [Mass/volume ] in Serum or Plasma [facility] Work Phone: Globulin measurement [facility] Work Phone: IgA [Mass/volume] in Serum or Plasma [facility] Work Phone: IgE [Units/volume] i n Serum or Plasma [facility] Work Phone: IgG [Mass/volume] in Serum or Plasma [facility] Work Phone: IgM [Mass/volume] in Serum or Plasma [facility] Work Phone: Liver stiffness by US.transient [facility], BOOSTER DOSE [facility] COVID-19 VACCINE, BOOSTER DOSE Immunization/Injection Routine 1 Occurrences starting 01/30/[address] [facility] Work Phone: Comment on above: 1 Occurrences starting 01/30/2022 Neutrophil cytoplasm ic Ab.classic [Units/volume] in Serum [facility] Work Phone: P-ANCA measurement [facility] Work Phone: Patient referral [facility] Work Phone: Protein electrophore sis panel - Serum or Plasma [facility] Work Phone: Radionuclide gastric emptying study [facility] Work Phone: Serum protein electrophoresis [facility] Work Phone: Ultrasound elastography [facility] Work Phone: Urinalysis macro (dipstick) panel - Urine [facility] US Abdomen limited [facility] Work Phone: End: 01-18-2026 XR Chest PA and Lateral XR CHEST 2V FRONTAL/LAT Radiology Routine Acute cough 1 Occurrences starting 12/19/2024 until 01/18/[address] [facility] Work Phone: Comment on above: 1 Occurrences starting 12/19/2024 until 01/18/2026 XR Chest PA and Lateral XR CHEST 2V FRONTAL/LAT Radiology Routine Acute cough 12/19/2024 11:04 AM EDT [facility] Immunizations Immunization Date Immunization Notes Care Provider [facility] 07-19-2023 influenza virus vacc ine, unspecified formulation Cash Lama MD Work Phone: [facility] 06-29-2022 influenza virus vacc ine, unspecified formulation Heather Sneed MD Work Phone: [facility] 07-22-2021 influenza, high-dose , quadrivalent vaccine (FLUZONE HIGH DOSE QUADRIVALENT) Genevieve Graham MD Work Phone: [facility] 12-22-2020 COVID-19 vaccine, fu ll dose (MODERNA) Genevieve Graham MD Work Phone: [facility] 11-24-2020 COVID-19 vaccine, fu ll dose (MODERNA) Genevieve Graham MD Work Phone: [facility] 07-02-2020 influenza, high-dose , quadrivalent vaccine (FLUZONE HIGH DOSE QUADRIVALENT) Genevieve Graham MD Work Phone: [facility] 07-20-2019 influenza, high dose seasonal, preservative-free Genevieve Graham MD Work Phone: [facility] 07-11-2018 influenza, high dose seasonal, preservative-free Genevieve Graham MD Work Phone: [facility] Work Phone: 07-11-2017 pneumococcal polysaccharide vaccine, 23 valent Genevieve Graham MD Work Phone: [facility] Work Phone: 08-16-2016 influenza, high dose seasonal, preservative-free Genevieve Graham MD Work Phone: [facility] 06-28-2016 pneumococcal conjuga te vaccine, 13 valent Genevieve Graham MD Work Phone: [facility] Work Phone: 06-26-2013 zoster vaccine, live Genevieve peterson MD Work Phone: [facility] 06-25-2006 tetanus and diphther ia toxoids, adsorbed, preservative free, for adult use (2 Lf of tetanus toxoid and 2 Lf of diphtheria toxoid) Genevieve Graham MD Work Phone: [facility] Payers Date Payer Category Payer Self-pay [id number] 2019 Private Health Insurance MMO MED ICARE SUPPLEMENT [id number] 2019 Unknown MMO MMO MEDICARE SUPPLEMENT [id number] 2019-Present [phone] [address] [place] [address] Indemnity [id number] 2019 Unknown MMO MMO MEDICARE SUPPLEMENT [id number] 2019-Present [phone] [address] [place] [address] Indemnity [id number] 2019 Unknown [id number] 2017 Medicare MEDICARE MEDICAR E A AND B [id number] 2017-Present [phone] [address] [address] [place] [address] Medicare [id number] 2017 Medicare [id number] 2016 Medicare [id number] Medicare [id number] Private Health Insurance [id number] Unknown [id number] Unknown [id number] 462 Unknown [id number] 462 Unknown [id number] 462 Unknown [id number] 462 Unknown [id number] 462 Unknown [id number] 462 Unknown [id number] 462 Unknown [id number] 462 Unknown [id number] 462 Unknown [id number] 462 Unknown [id number] 462 Unknown [id number] Unknown [id number] 462 Social History Date Type Detail Facility Start: 04-08-2023 End: 04-01-2024 Never smoker Never smoker [facility] Start: 11-07-2011 End: 06-14-2025 Tobacco smoking status NHIS Never smoked tobacco [facility] Start: 10-17-2021 End: 12-19-2024 Alcohol intake Current drinker of alcohol (finding) [facility] Start: 1950 Sex Assigned At Not on file [facility] Start: 03-05-2021 End: 04-19-2022 Exposure to SARS-CoV-2 (event) Not sure [facility] Start: 10-23-2021 End: 12-08-2023 Assertion Unknown if ever smoked [facility] Work Phone: Start: 12-10-2018 None [facility] Start: 05-09-2019 Spouse/ Signif icant Other [facility] Start: 01-16-2019 Non-smoker [facility] Start: 1950 Sex Assigned At Female W [facility] Start: 11-07-2011 End: 12-24-2022 Tobacco use and exposure Smokeless tobacco non-user [facility] Start: 04-08-2023 End: 04-01-2024 Tobacco use panel [facility] Adult Depression Screening Assessment 0 [facility] Start: 12-15-2024 End: 12-22-2024 Sex Female (finding) [facility] Medical Equipment Procedure Code Equipment Code Equipment [...] umbilical, 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,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 FDA Start: 01-14-2019 Goals Date Patient Goal Desired Activity /State Functional Status Date Assessment Result Facility 07-23-2018 Are you deaf, or do you have serious difficulty hearing No 07/23/2018 4:01 PM Nahed Mejía III, MD [facility] 07-23-2018 Are you blind, or do you have serious difficulty seeing, even when wearing glasses No 07/23/2018 4:01 PM Nahed Mejía III, MD [facility] 07-23-2018 Do you have serious difficulty walking or climbing stairs No 07/23/2018 4:01 PM EDT Nahed Faust III, MD [facility] 07-23-2018 Do you have difficul ty dressing or bathing No 07/23/2018 4:01 PM Nahed Mejía III, MD [facility] 07-23-2018 Because of a physica l, mental, or emotional condition, do you have difficulty doing errands alone such as visiting a physician's office or shopping No 07/23/2018 4:01 PM Nahed Mejía III, MD [facility] Mental Status Date Assessment Result Facility 06-17-2025 Cognitive function Level Of Cons ciousness Sedated [facility] Work Phone: 07-23-2018 Because of a physica l, mental, or emotional condition, do you have serious difficulty concentrating, remembering, or making decisions No 07/23/2018 4:01 PM Nahed Mejía III, MD [facility] Clinical Notes 02-18-2018 to 06-17-2025 Note Date & Type Note Facility 06-17-2025 Procedure note [facility] 09-18-2025 Procedure note [facility] 06-17-2025 Consult note [facility] 06-17-2025 History and physi marley note [facility] 06-17-2025 Note [facility] Medical Records Department [address] [place] [address] History Physical Exam 06/17/25 0635 MR#: [id number] Acct: [id number] Name: HALLIE GUZMAN Rep #: [id number] : 1950 75 From: Bridger Friend DO PCP: Dr. Sarah Huynh MD Status:[facility] Location: [place] [address] HPI - General General Date of Admission: 06/17/25 Date of Service: 06/17/25 Chief Complaint: Screening colonoscopy HPI Narrative HALLIE GUZMAN, is a 75 F who presents for screening colonoscopy EGD/colonoscopy 8.20 [facility] EGD erythematous duodenopathy Colonoscopy diverticulosis Small bowel Xray 09.27.20 without acute/chronic finding Acute abd series 10.24. without acute/chronic finding CT abd/pel 6..21 hepatic steatosis; small hiatal hernia BGI established in 2021 with epigastric pain and nausea a few times per week. Biochemical 12..22 coag, ferritin, GGTP, AMA, ASM WNL US/elastography 12. hepatic measurement 13.1cm with fatty infiltration, stiffness 12.5kPa; increased pancreatic echogenicity; mild right hydronephrosis. Biochemical 1..23 ANCA profile WNL US/elastography 6.6.23 hepatic measurement 13.4cm with fatty infiltration, stiffness 6kPa; normal pancreas EGD 24; - Normal esophagus. - Medium-sized hiatal hernia. [...] She is due for a colonoscopy now. [facility] Medical History History of steroid therapy High [...] PRN Sob / Or 10/11/17 06/14/24 History aerosol inhaler Wheezing cholecalciferol (vitamin D3) 50 4,000 unit PO QDAY 10/11/17 History mcg (2,000 unit) capsule levothyroxine 50 mcg tablet 88 mcg PO DAILY 06/06/18 06/17/25 03:00 History pantoprazole 40 mg tablet,delayed 40 mg PO DAILY PRN GERD 03/17/24 06/14/24 History release rosuvastatin 20 mg tablet 40 mg PO QHS 05/15/24 06/16/25 His tory estradiol 0.01% (0.1 mg/gram) 1 appful vaginal PRN 06/11/24 Unkn own History vaginal cream ipratropium bromide 21 mcg (0.03 2 spray intranasal BID-TID PRN Unknown Rx %) nasal spray postnasal drainage #30 mL ondansetron 4 mg disintegrating 4 mg PO Q8H #14 tabs 04/13/2505/31 00:05 Rx tablet Allergy/AdvReac Type Severity Reaction Status Date / Time Sulfa (Sulfonamide Allergy Intermediate Other Verified 06/17/25 05:51 Antibiotics) atorvastatin (From Lipitor) Allergy Mild itching Verified 06/17/25 05:51 adhesive tape AdvReac Rash Verified 06/17/25 05:51 Family History Father Heart disease Mother Heart disease Hypertension Thyroid disorder CVA (cerebral vascular accident) Brother Heart disease Brother Heart disease Other IBS (irritable bowel syndrome) Surgical History S/P hysterectomy S/P cholecystectomy S/P hernia repair ( 01/14/19) S/P appendectomy S/P colectomy Social History Smoking Status: Never smoker alcohol intake: current alcohol intake frequency: holidays/special occasions only substance use type: does not use caffeine: Yes what type of physical activity do you participate in: walking seatbelt use: always do you feel safe at home: Yes additional social history: - Luis Patient and are both retired ROS Constitutional Constitutional: Denies fatigue, fever(s), poor appetite, weig (more content not included)... [facility] 06-17-2025 Consult note [facility] 04-13-2025 Evaluation note Diagnosis Onset Date Resolution Constipation acute April 13, 9:25am Fatty liver acute April 13 9:25am GERD (gastroesophageal reflux disease) chronic April 13, 2025 9:25am Screening for colon cancer acute June 17, 2025 5:21am [facility] Work Phone: [phone] History of Present illness Narrative* Pipo Amador, RT(R) - 12/19/2024 11:00 AM EDT Radiology Service Progress Note PATIENT NAME: [...] Assigned female at . status: : No status:NO. PATIENT RELEVANT IMPLANT DATA REVIEWED: Not Applicable PATIENT PRESENTS WITH AN IMPLANTABLE OR ATTACHED LEAD NET SOFTWARE DEVELOPER: No RADIOLOGY DEPARTMENT: General X-ray: Exam(s) Completed: Chest X-Ray PERIPHERAL IV DATA: Not applicable SIGNED BY: RT Karl(Wilder) December 19, 2024 10:59 AM [facility] NoteHNO ID: [id number] Author: PIPO AMADOR RT(Wilder) Service: Radiology Author Type: Technologist Type: Progress [...] PATIENT PRESENTS WITH AN IMPLANTABLE OR ATTACHED LEAD NET SOFTWARE DEVELOPER: No RADIOLOGY DEPARTMENT: General X-ray: Exam(s) Completed: Chest X-Ray PERIPHERAL IV DATA: Not applicable SIGNED BY: RT Karl(R) December 19, 2024 10:59 [facility]03-22-2025 NoteHNO ID: [id number] Author: VIVIANA TOBIAS APRN.SHOULDER BONER Service: ? Author Type: Nurse Practitioner Type: Progress Notes Filed: 12/19/2024 11:45 Note Text: This note was created using [employer]. Subjective Hallie Guzman is a 74 year [...] up with EC or PCP Viviana Tobias APRN.[facility]OC[facility] History of Present illness Narrative* Viviana Tobias APRN.SHOULDER BONER - 12/19/2024 10:50 AM EDT This note was created using [employer]. Subjective Hallie Guzman is a 74 year old female. HPI pt has been taking Z-pakk since Saturday with no improvement in cough/congestion. Fever/chillsoff/on, body aches, wheezing, SOB. Review of Systems [...] up with EC or PCP Viviana Tobias APRN.RITO documented in this encounterMercy Hospital03-20-2025 Evaluation note* Diagnosis Onset Date Resolution Status Admit Date Acute bronchitis acute December 172024 4:36pm [facility] Work Phone: 1(915) 303-896503-20-2025 Evaluation note* Diagnosis Onset Date Resolution Status Admit Date Acute bronchitis acute December 172024 4:36pm Fatty liver acute April 13 9:25am [facility] Work Phone: 1(428) 300-379303-11-2025 Evaluation note* Diagnosis Onset Date Resolution Status Admit Date Elevated coronary artery marley cium score acute December 08, 2024 1:43pm Essential hypertension acute [facility] 2024 1:43pm Acute bronchitis acute December 172024 4:36pm [facility] Work Phone: 1(218) 742-393112-11-2024 Evaluation note* Diagnosis Onset Date Resolution Status Admit Date Acute otitis externa of righ t ear acute September 09 11:51am URI (upper respiratory infection) acute September 09 11:51am Constipation acute September 9:54am Weight loss acute October 23, 2024 9:54am GERD (gastroesophageal reflu x disease) chronic October 23 9:54am Elevated coronary artery calcium score acute December 08, 2024 1:43pm Essential hypertension acute [facility] 2024 1:43pm [facility] Work Phone: 1(146) 848-642212-11-2024 Evaluation note* Diagnosis Onset Date Resolution Status Admit Date Acute otitis externa of righ t ear acute September 09 11:51am URI (upper respiratory infection) acute September 09 11:51am Constipation acute September 9:54am Weight loss acute October 23, 2024 9:54am GERD (gastroesophageal reflu x disease) chronic October 23 9:54am Elevated coronary artery calcium score acute December 08, 2024 1:43pm Essential hypertension acute [facility] 2024 1:43pm Acute bronchitis acute December 172024 4:36pm [facility] Work Phone: 1(344) 950-661507-05-2024 NoteHNO ID: [id number] Author: CASH LAMA MD Service: ? Author Type: Physician Type: Progress Notes Filed: 04/03/2024 12:44 Note Text: [facility] - FOLLOW UP EVALUATION Cash Arias DO [address] [place] [address] [facility] [address] Dear Cash Arias DO: I had the [...] status, normal development, well-kept (more content not included)...[facility]07-05-2024 History of Present illness Narrative* Cash Lama MD - 04/03/2024 12:42 PM EDT [facility] - FOLLOW UP EVALUATION Cash Arias DO [address] [facility] [address] [facility] [address] Dear Cash Arias DO: I had the [...] Glycinate or Mg Taurate. Calm, Pure Encapsulation, [employer] research are reliable brands. Dose 250-300 mg [...] appointment, pleasefeel free to send me a [employer] message or contact the office Try melatonin [...] Sincerely, Cash Lama MD documented in this encounterMercy Hospital07-03-2024 Instructions* Patient Instructions* Cash Lama MD - [...] appointment, pleasefeel free to send me a [employer] message or contact the office Try melatonin for sleep. Start with 3 mg at bedtime and increase as needed and tolerated every few days. No more than 9-12 mg per day. If there are any concerns before your next visit, please call or you can send a message through [employer]. You can also now schedule and select appointments through [employer]. Cash Lama MD documented in this encounterMercy Hospital04-04-2024 Miscellaneous Notes* Telephone Encounter - Melanie Espinoza - 01/02/2024 8:22 AM EDT Request from patient requesting refill. Please E-Scribe to [facility]. Last OV: 08/01/23 with [facility] Future OV: 04/01/24 with KA Requested Prescriptions Pending Prescriptions Disp Refills gabapentin (NEURONTIN) 300 mg capsule 30 capsule 2 Sig: Take 1 capsule by mouth daily at bedtime for 90 days. Melanie S documented in this encounterMercy Hospital09-01-2023 Discharge summary Author Gagandeep Mcneill [facility] May 31, 2023 7:51am Note Date/Time May 31, 2023 7:50am [facility] Physical Therapy [facility] [address] [place] [address] / REHABILITATION SERVICES DISCHARGE SUMMARY MR#: [id number] Acct: [id number] Name: HALLIE GUZMAN Rep #: [id number] : 1950 73 From: Cert. SMITHA ArvizuT, OCS Referring Dr.: OUT OF TOWN DOCTOR Status: REG RCR Insurance: MEDICARE PART A B [facility] Discharge Summary D/C summary: It has been my pleasure to treat HALLIE GUZMAN referred by TIMOTHY ISAAC, withthe diagnosis of TROCHANTERIC BURSITIS RIGHT HIP ,ILIOTIBAL BAND SYNDROME RIGHT LEG for a total of 8 visit(s). Discharge Date: 04/09/23 Please see the following information for a summary of their discharge status. Subjective Subjective: Pain about same plan to see DR Esienberg Right Hip: Pain Intensity (Out of 10): [...] please feel free to call me at [phone]. Thank you for the referral of thispatient. Sincerely, Gagandeep Mcneill PT, Cert MDT, OCS Balance/Gait/Functional tests Balance/Special Test Scores Lower Extremity Functional Score: 40 Improvement % Improvement: 20 <Electronically signed by Gagandeep Mcneill PT, Cert. MDT, OCS> 05/31/23 0751 CC: TIMOTHY ISAAC; Dr. Ash Roberts MD ~ JLA Signed [facility] Work Phone: 1(874) 464-540807-10-2023 Miscellaneous Notes* Telephone Encounter - Prabha Mai RN - 04/08/2023 4:02 PM EDT Carotid Duplex study results in scanned documents for your review. * Telephone Encounter - Edyta Membreno - 04/08/2023 3:15 PM EDT Received fax from [facility] with Carotid Duplex Scan dated 01/10/23. Scanned into [employer]. documented in this encounterMercy Hospital07-10-2023 NoteHNO ID: [id number] Author: Heather Sneed MD Service: ? Author Type: Physician Type: Progress Notes Filed: 04/08/2023 10:40 AM Note Text: [facility] Follow up/ Established patient visit Individuals who were included in, or assisted with the encounter were: Hallie Dileep Sneed MD Chief Complaint/Issues: Hallie Guzman is a 72 year old R handed female w PMH HTN, HLP, hypothyroidism, seen in the [facility] for: RLS, essential tremor and neuropathy Most Recent Neurological Assessment and Plan: Last Filed Values Date of Most Recent Assessment and Plan 12/24/22 Specialty General Neurology Assessment Hallie Guzman is a 72 year old R handed female w PMH HTN, HLP, hypothyroidism, seen in the [facility] for: 1. RLS, [...] not on aspirin. She will see a expenditure requisition clerk next week. RF, ANTONETTE, MMA, copper, syphilis, [...] 127/82 Pulse 92 Ht 162.6 cm (5' 4") Wt 74.5 kg (164 lb 4.8 oz) [...] 04/08/2023 - General NeurologyHeather MD ASSESSMENT Hallie Guzman is a 72 year old R handed female w PMH HTN, HLP, hypothyroidism, seen in the [facility] for: 1. RLS, essential tremor and neuropathy -- Numbness and weakness in the lower legs: Likely multifactorial due to the circulatory issues, arthritis, and may be superimposed small fiber polyneuropathy. I asked her to follow-up with her PCP and vascular (more content not included)...[facility] [id number] Instructions* Patient Instructions* Heather Sneed MD - 04/08/2023 10:08 AM EDT --Please discuss with your expenditure requisition clerk about whether it's ok for you to [...] up in 6 months documented in this encounterMercy Hospital07-10-2023 History of Present illness Narrative* Heather Sneed MD - 04/08/2023 9:36 AM EDT Images from the original note were not included. [facility] General Neurology Follow up/ Established patient visit Individuals who were included in, or assisted with the encounter were: Hallie Guzman Heather Sneed MD Chief Complaint/Issues: Hallie Guzman is a 72 year old R handed female w PMH HTN, HLP, hypothyroidism, seen in the [facility] for: RLS, essential tremor and neuropathy Most Recent Neurological Assessment and Plan: Last Filed Values Date of Most Recent Assessment and Plan 12/24/22 Specialty General Neurology Assessment Hallie Guzman is a 72 year old R handed female w PMH HTN, HLP, hypothyroidism, [facility]: 1. RLS, [...] not on aspirin. She will see a expenditure requisition clerk next week. RF, ANTONETTE, MMA, copper, syphilis, [...] 127/82 Pulse 92 Ht 162.6 cm (5' 4") Wt 74.5 kg (164 lb 4.8 oz) [...] PMH HTN, HLP, hypothyroidism, seen in the [facility] for: 1. RLS, [...] well on Neurontin 600 mg at bedtime. Butshchema would like to reduce it. I discussed [...] will also discuss about this with her expenditure requisition clerk at the upcoming cardiology appointment. --HTN --HLP --hypothyroidism --B12 deficiency: Supplemented PLAN -- We will try propanolol 60 mg daily. She will discuss about it with her expenditure requisition clerk. She was stopped at if she feels [...] w/ lysis of adhesions LAP COLECTOMY, SIGMOID W/LIBRARIAN HEAD 11/11/2017 [facility]-Dr. Loree Morgan PAST SURGICAL HISTORY OF LAPAROSCOPY [...] Negative Negative SM Antibody <0.2 <1.0 AI SIEVE REPAIRER ANTIBODY BLOOD Result Value Ref Range SIEVE REPAIRER Antibody QUAL Negative Negative SIEVE REPAIRER Antibody <0.2 <1.0 AI ANTI SSA BLD [...] Dara 1 Antibody <0.2 <1.0 AI RIBOSOMAL SIEVE REPAIRER AB BLD Result Value Ref Range Ribosomal SIEVE REPAIRER Qualitative Negative Negative Ribosomal SIEVE REPAIRER <0.2 <1.0 AI CHROMATIN ANTIBODY Result Value [...] which included preparing to see the patient, [id number] patient care, completing clinical documentation, obtaining and/or reviewing separately obtained history, performing a medically appropriate examination, counseling and educating the pat ient/family/caregiver, ordering medications, tests, or procedures, independently interpreting results (not separately reported), communicating results to the patient/family/caregiver, and care coordination (not separately reported). Heather Sneed MD documented in this encounterMercy Hospital04-04-2023 History of Present illness Narrative* Yomaira Ng MA - 01/01/2023 8:09 AM EDT POPULATION HEALTH NAVIGATION OUTREACH Action/I INVALID NUMBER [employer] MESSAGE SENT Patient reply thru [employer]. She was a new PCP. D69.6 - Thrombocytopenia (HCC) - [id number] Last Billed 10/17/2021 ANNUAL MEDICARE WELLNESS ANNUAL PCP TEAM CHRONIC DISEASE VISIT due on 08/14/2022 MAMMOGRAM due on 02/06/2023 Patient Identified by Name and : NO Outreach Outcome/Action Unable to reach patient: Phone number not valid / voicemail full [employer] message sent PCP field updated Did you [...] 01, 2023 8:09 AM documented in this encounterMercy Hospital03-27-2023 NoteHNO ID: [id number] Author: Heather Sneed MD Service: ? Author Type: Physician Type: Progress Notes Filed: 12/24/2022 3:45 PM Note Text: [facility] General Neurology New Patient Evaluation Consulting Provider: SELF Individuals who were included in, or assisted with the encounter were: Hallie Guzman Heather Sneed MD Chief Complaint/Issues: Hallie Guzman is a 72 year old R handed female w PMH HTN, HLP, hypothyroidism, seen in the [facility] for: RLS, essential [...] PMH HTN, HLP, hypothyroidism, seen in the [facility] for: 1. RLS, [...] (PROAIR HFA) 90 m (more content not included)...[facility] [id number] Instructions* Patient Instructions* Heather Sneed MD - [...] up in 3-4 months documented in this encounterMercy Hospital03-27-2023 History of Present illness Narrative* Heather Sneed MD - 12/24/2022 1:13 PM EDT Images from the original note were not included. [facility] New Patient Evaluation Consulting Provider: SELF Individuals who were included in, or assisted with the encounter were: Hallie Sneed MD Chief Complaint/Issues: Hallie Guzman is a 72 year old R handed female w PMH HTN, HLP, hypothyroidism, seen in the [facility] for: RLS, essential [...] bedtime and 100 mg in the morning. Kendra continues to wake up at night due [...] PMH HTN, HLP, hypothyroidism, seen in the [facility] for: 1. RLS, [...] w/ lysis of adhesions LAP COLECTOMY, SIGMOID W/LIBRARIAN HEAD 11/11/2017 [facility]-Dr. Loree Morgan PAST SURGICAL HISTORY OF LAPAROSCOPY [...] which included preparing to see the patient, [id number] patient care, completing clinical documentation, obtaining and/or reviewing separately obtained history, performing a medically appropriate examination, counseling and educating the pat ient/family/caregiver, ordering medications, tests, or procedures, independently interpreting results (not separately reported), communicating results to the patient/family/caregiver, and care coordination (not separately reported). Heather Sneed MD documented in this encounterMercy Hospital02-07-2023 History of Present illness Narrative* Yomaira Ng MA - 11/06/2022 10:38 AM EST POPULATION HEALTH NAVIGATION OUTREACH Action/FYI [facility] [employer] MESSAGE SENT ANNUAL MEDICARE WELLNESS EXAM INFLUENZA(1) due on 05/31/2022 ANNUAL PCP TEAM CHRONIC DISEASE VISIT due on 08/14/2022 Patient Identified by Name and : NO Outreach Outcome/Action Unable to reach patient: Left message [employer] message sent Did you use a PCP [...] 06, 2022 10:38 AM documented in this encounterMercy Hospital10-18-2022 Miscellaneous Notes* Telephone Encounter - Lynn Fuller Ma - 07/17/2022 11:39 AM EDT Last OV: 04/19/2022 Next OV: 07/30/2022 documented in this encounterMercy Hospital07-21-2022 Miscellaneous Notes* Telephone Encounter - Candelaria Lee RN - 04/19/2022 10:17 AM EDT Pt called I and asked to have gastro referral faxed over to Dr Lanier. Referral was faxed to [phone]. documented in this encounterMercy Hospital07-21-2022 History of Present illness Narrative* Parul Cummings APRN.REPAIR WELDER - 04/19/2022 8:00 AM EDT SUBJECTIVE: BP [...] knee, has an upcoming appointment [facility]. She notes both brothers now with [...] 129 The 10-year ASCVD risk score (Floresita OMARI Jr., et al., 2013) is: 11.9% Values [...] medial meniscectomy on February 28, 2022 with [facility]. Notes that she was taking 600 mgibuprofen [...] 1.00 - 4.00 k/uL 0.97 (L) 1.16 [place]% % 9.8 10.6 Abs [place] <0.87 k/uL 0.44 0.58 Eosin% % 4.5 [...] Level: 4 - Moderate documented in this encounterMercy Hospital05-20-2022 Miscellaneous Notes* Telephone Encounter - Palmira Sheppard LPN - 02/16/2022 12:54 PM EDT Patient phones requesting refills as follows: Pending Prescriptions Disp Refills METOPROLOL SUCCINATE ER 25 MG TABLET,EXTENDED RELEASE 24 HR 30 tablet 5 Sig: Take 1 tablet by mouth once daily. NICA: No JUD-01/30/22 Labs-02/03/22 NOV-07/30/22 med filled 01/26/21 Please review and advise. Palmira Sheppard LPN documented in this encounterMercy Hospital05-13-2022 Miscellaneous Notes* Telephone Encounter - Esperanza Levine RN - 02/09/2022 9:55 PM EDT Reason for call: patient had blood and mucous on the toilet paper when wiping after having a bowel movement two different times. Patient is also having some rectal discomfort Outcome for call: see PCP within 2 weeks, transferred to [place] at the appointment center to make an [...] passed blood and mucous Protocols used: RECTAL [id number] documented in this encounterMercy Hospital05-09-2022 Miscellaneous Notes* Telephone Encounter - Marita Wong [...] ng/mL 37.0 The 10-year ASCVD risk score (Floresita SALCIDO Jr., et al., 2013) is: 14.3% Values used to calculate the score: Age: 71 years Sex: Female Is Non- : No Diabetic: No Tobacco smoker: No Systolic Blood Pressure: 130 mmHg Is BP treated: Yes HDL Cholesterol: 41 mg/dL Total Cholesterol: 234 mg/dL documented in this encounterMercy Hospital05-03-2022 History of Present illness Narrative* Parul Cummings [...] 05/09/2020 119 The 10-year ASCVD risk score (Blythedaniel SALCIDO Jr., et al., 2013) is: 14.3% [...] 1.00 - 4.00 k/uL 0.97 (L) 1.16 [place]% % 9.8 10.6 Abs [place] <0.87 k/uL 0.44 0.58 Eosin% % 4.5 [...] suspiciousactivity was identified. 01/30/2022 by Parul Cummings APRN.REPAIR WELDER 6. Hyperlipidemia LDL goal <100 - ICD9: 272.4, ICD10: E78.5 When last checked suboptimal control, recheck today. Currently taking Zocor, prior intolerance of atorvastatin with muscle aches. - LIPID PANEL, NONFASTING 7. Acute pain of left knee M 25. 562 Consistent with meniscus tear, has upcoming appointment with [facility] Parul Cummings APRN.CNS Medical Decision Making: Problems: Moderate: 2+ stable chronic illnesses Data: Unique test(s) ordered: 3+ Risk: Moderate: Drug management Medical Decision Making Level: 4 - Moderate . documented in this encounterMercy Hospital04-21-2022 History of Present illness Narrative* Leatha Saravia [...] 18, 2022 1:51 PM documented in this encounterMercy Hospital04-13-2022 Miscellaneous Notes* Telephone Encounter - Hailee Arias - 01/10/2022 3:47 PM EDT Patient's picked up disk * Telephone Encounter - Tasha Glaser - 01/10/2022 3:28 PM EDT Pt would like to pickling solution maker report and disc from her knee xr today. Informed patient there is usually 24 hours notice. Please inform her if she is not able to get this today. Her appt with Ortho outsideof Clinic at 8:15 tomorrow. Call her if this is no going to be done before 5. documented in this encounterMercy Hospital04-13-2022 History of Present illness Narrative* Pipo Amador [...] 10, 2022 2:07 PM documented in this encounterMercy Hospital04-04-2022 Miscellaneous Notes* Telephone Encounter - Marita Wong LPN - 01/01/2022 1:32 PM EDT Patient notified of providers message and verbalized understanding. * Telephone Encounter - Parul Cummings APRN.RESHMA - 01/01/2022 12:05 PM EDT 01/25 appt Metabolic panel in acceptable range overall. Recommend getting sufficient fluid during the day and eating on a regular basis. This will help keep BUN creatinine and chloride within normal limits. Routine meals will help keep glucose in normal range. No PMH of DM is noted in chart. No results found for: HBA1C * Telephone Encounter - Allyson Portillo LPN - 01/01/2022 10:33 AM EDT [...] advise, Amanda Garcia RN documented in this encounterMercy Hospital07-06-2021 History of Present illness Narrative* Brando Lion [...] 04, 2021 4:09 PM documented in this encounterMercy Hospital09-22-2018 History of Present illness Narrative* PCP: Dr. [...] * PSH includes cholecystectomy, hysterectomy, bladder suspension. [facility] [address] Work Phone: 1(308) 625-653405-22-2018 History of Past illness Narrative* Problem Noted Date Resolved Date Chronic post-operative pain 02/18/201807/01 Dysuria 03/27/2016 02/14/2017 Abnormal finding on chest xray 2015 0 02/14/2017 documented as of this encounter (statuses as of 01/01/2022) [facility] of Past illness Narrative* Problem Noted Date Resolved Date Chronic post-operative pain 02/18/201807/01 Dysuria 03/27/2016 02/14/2017 Abnormal finding on chest xray 2015 0 02/14/2017 documented as of this encounter (statuses as of 01/10/2022) [facility] of [facility] illness Narrative* Problem Noted Date Resolved Date Chronic post-operative pain 02/18/201807/01 Dysuria 03/27/2016 02/14/2017 Abnormal finding on chest xray 2015 0 02/14/2017 documented as of this encounter (statuses as of 01/18/2022) [facility] of [facility] illness Narrative* Problem Noted Date Resolved Date Chronic post-operative pain 02/18/201807/01 Dysuria 03/27/2016 02/14/2017 Abnormal finding on chest xray 2015 0 02/14/2017 documented as of this encounter (statuses as of 01/30/2022) [facility] illness Narrative* Problem Noted Date Resolved Date Chronic post-operative pain 02/18/201807/01 Dysuria 03/27/2016 02/14/2017 Abnormal finding on chest xray 2015 0 02/14/2017 documented as of this encounter (statuses as of 02/05/2022) [facility] Narrative* Problem Noted Date Resolved Date Chronic post-operative pain 02/18/201807/01 Dysuria 03/27/2016 02/14/2017 Abnormal finding on chest xray 2015 0 02/14/2017 documented as of this encounter (statuses as of 02/10/2022) [facility] Narrative* Problem Noted Date Resolved Date Chronic post-operative pain 02/18/201807/01 Dysuria 03/27/2016 02/14/2017 Abnormal finding on chest xray 2015 0 02/14/2017 documented as of this encounter (statuses as of 02/16/2022) [facility] Narrative* Problem Noted Date Resolved Date Chronic post-operative pain 02/18/201807/01 Dysuria 03/27/2016 02/14/2017 Abnormal finding on chest xray 2015 0 02/14/2017 documented as of this encounter (statuses as of 04/19/2022) [facility] Narrative* Problem Noted Date Resolved Date Chronic post-operative pain 02/18/201807/01 Dysuria 03/27/2016 02/14/2017 Abnormal finding on chest xray 2015 0 02/14/2017 documented as of this encounter (statuses as of 04/19/2022) [facility] Narrative* Problem Noted Date Resolved Date Chronic post-operative pain 02/18/201807/01 Dysuria 03/27/2016 02/14/2017 Abnormal finding on chest xray 2015 0 02/14/2017 documented as of this encounter (statuses as of 07/17/2022) [facility] Narrative* Problem Noted Date Resolved Date Chronic post-operative pain 02/18/201807/01 Dysuria 03/27/2016 02/14/2017 Abnormal finding on chest xray 2015 0 02/14/2017 documented as of this encounter (statuses as of 11/06/2022) [facility] Narrative* Problem Noted Date Resolved Date Chronic post-operative pain 02/18/201807/01 Dysuria 03/27/2016 02/14/2017 Abnormal finding on chest xray 2015 0 02/14/2017 documented as of this encounter (statuses as of 12/24/2022) [facility] Narrative* Problem Noted Date Resolved Date Chronic post-operative pain 02/18/201807/01 Dysuria 03/27/2016 02/14/2017 Abnormal finding on chest xray 2015 0 02/14/2017 documented as of this encounter (statuses as of 01/01/2023) [facility] Narrative* Problem Noted Date Diagnosed Date Resolved Date Chronic post-operative pain 02/18/2018 07/23/2018 Dysuria 03/27/2016 02/14/2017 Abnormal finding on chest xray 2015 02/14/2017 documented as of this encounter (statuses as of 04/08/2023) [facility] Narrative* Problem Noted Date Diagnosed Date Resolved Date Chronic post-operative pain 02/18/2018 07/23/2018 Dysuria 03/27/2016 02/14/2017 Abnormal finding on chest xray 2015 02/14/2017 documented as of this encounter (statuses as of 06/13/2023) [facility] Narrative* Problem Noted Date Diagnosed Date Resolved Date Chronic post-operative pain 02/18/2018 07/23/2018 Dysuria 03/27/2016 02/14/2017 Abnormal finding on chest xray 2015 02/14/2017 documented as of this encounter (statuses as of 01/02/2024) [facility] note Author Lisa Dumont [facility] Note Date/Time June 17, 2025 6:21am [facility] Medical Records Department [address] [place] [address] Pre-Anesthesia Evaluation 06/17/25618 MR#: [id number] Acct: [id number] Name: HALLIE GUZMAN Rep #:[id number] : 1950 75 From: Lisa LAI PCP: Dr. Sarah Huynh MD Status:REG SDC Y Race: C Location: [place] [address] ASA Classification* ASA Classification ASA Classification: 2 Assessment & Plan Anesthesia* Anesthesia Assessment Anesthesia Assessment: Discussed sedation and/or anesthesia options, risks, benefits, and alternatives with patient/parents/legal guardian/POA. Questions invited. The patient/parents/legal guardian/POA seems to understand and agrees to proceedwith anesthesia plan. Reviewed the physical assessment, medical history, allergy history and patient home medications list prior to surgery/procedure/anesthetic and documented any changes. Performed airway and anesthesia risk assessments. Anesthesia Type Anesthesia Type: MAC History Source History Obtained from:: Patient and Chart Anesthesia Focused Assessment* Temperature: 97.5 F Pulse Rate: 64 Blood Pressure: 132/69 Respiratory Rate: 18 Pulse Ox: 97 Oxygen Delivery Method: Room Air Airway Assessment Mouth opens: >3 cm Mallampati Score: II Teeth Condition: Intact Neck Range of motion (ROM): Full ROM Labs Anesthesia Preop lab: CBC WBC, (4.4-11.0) 5.5 K/mm3 10/23/24, 10:44 RBC, (4.2-5.4) 5.14 M/mm3 10/23/24, 10:44 Hgb, (12.0-15.0) 15.6 g/dL H 10/23/24, 10:44 Hct, (37-47) 47.0 % 10/23/24, 10:44 Plt Count, (150-450) 116 K/mm3 L 10/23/24, 10:44 CHEMISTRY Potassium, (3.5-5.1) 3.6 mmol/L 10/23/24, 10:44 Sodium, (136-145) 142 mmol/L 10/23/24, 10:44 Magnesium, (1.6-2.6) 2.2 mg/dL 10/23/24, 10:44 BUN, (7-18) 21 mg/dL H 10/23/24, 10:44 Creatinine, (0.55-1.02) 0.92 mg/dL 10/23/24, 10:44 Glucose, (74-106) 111 mg/dL H 10/23/24, 10:44 TSH, (0.358-3.740) 1.350 uIU/mL 10/23/24, 10:44 COAG PT, (11.7-14.9) 13.1 SECONDS 09/10/22, 10:49 Pre-Assessment Diagnosis/Proposed Procedure Planned Operative Procedure(s): COLONOSCOPY Anesthesia History Anesthesia History - reports analysis manager: Anesthesia History - reports analysis manager Hx Hospitalization No 06/14/25 10:44 Any Problems With Anesthesia Yes: +PONV, HAD TO USE 06/14/25 10:44 PEDIATRIC COLONOSCOPY SCOPE PREVIOUSLY Cholinesterase deficiency No 06/14/25 10:44 You/Your Family Experience No 06/14/25 10:44 fever (hyperthermia) with Relationship Recent Exposure to Contagious No 06/17/25 05:54 Disease Does patient have nerve No 06/14/25 10:44 stimulator Patient instructed to have device shut off --Does patient have Pacemaker No 06/17/25 05:55 or ICD? When Was Last Pacemaker Check QUESTION #4 FULL TEXT: You/Your Family Experience fever (hyperthermia) with Anesthesia Last Oral Intake Last Oral intake: Last Oral Intake NPO since 02:15 06/17/25 05:55 Meds taken in AM with sips of Yes 06/17/25 05:55 water? Meds patient instructed to take am of surgery PONV PONV - reports analysis manager: PONV - reports analysis manager Female Yes 06/14/25 10:44 HX of Motion Sickness No 06/14/25 10:44 HX of N/V After Surgery Yes 06/14/25 10:44 Non-Smoker Yes 06/14/25 10:44 Duration of Surgery greater No 06/14/25 10:44 than 60 minutes Number of Risk Factors 3 06/14/25 10:44 PONV Score Moderate Risk 06/14/25 10:44 Height & Weight Height & Weight: Anesthesia: Height & Weight Height 5 ft 4 in 06/17/25 05:55 Weight: 68.039 kg 06/17/25 05:55 Body Mass Index (BMI) 25.7 06/17/25 05:55 Respiratory Assessment Respiratory Assessment - reports analysis manager: Respiratory Tract Infection Hx - reports analysis manager Hx Respiratory Tract Infection No 06/14/25 10:44 STOP Sleep Apnea STOP Sleep Apnea - reports analysis manager: STOP Sleep Apnea - reports analysis manager Hx Hypertension No 06/14/25 10:44 Hx Sleep [...] 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 - reports analysis manager: Tobacco Use History - reports analysis manager Tobacco Use Smoking Status Never smoker 06/14/25 10:44 Hx Tobacco Use No 06/14/25 10:44 Years Smoking Packs Smoked per Day Smoking Cessation Date was within the last 15 years Hx Smoking Cessation Date Hx Smoking Cessation Counseling Hematologic Medial History Hematologic Hx - reports analysis manager: 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 Specify any problems Hx of Preganancy in last 3 No 06/14/25 10:44 Months Nurse Filling Out Transfusion [place] 06/14/25 10:44 & Questions: Date: 06/14/25 06/14/25 10:44 Time: 10:50 06/14/25 10:44 Patient unable to answer at this time (ie. confused, unrespo /Reproduction History /Reproductive History - reports analysis manager: /Reproductive Hx- reports analysis manager Hx Now Gestational Age (in weeks): EDC: Hx Hx Para Hx Section SAB No 06/11/24 09:40 Active Medications Active Medications: Current Medications Generic Name Dose Route Start Last Admin Trade Name Freq PRN Reason Stop Dose Admin Lactated Ringer's 1,000 mls @ 15 mls/hr 06/17/25 05:45 06/17/25 06:06 IV 15 mls/hr .Q48H ROXANN Administration PFSH Medical History History of steroid therapy [...] Diverticulosis Cyst of left kidney Home Medications ?Medication ?Instructions ?Recorded ?Last Taken ?Type albuterol sulfate 90 mcg/actuation 2 puff inhalation Q 4H PRN Sob &/Or 10/11/17 06/14/24 History aerosol inhaler Wheezing cholecalciferol (vitamin D3) 50 4,000 unit PO QDAY 09/1606/15/25 History mcg (2,000 unit) capsule levothyroxine 50 mcg tablet 88 mcg PO DAILY 06/06/18 0 06/17/25 03:00 History pantoprazole 40 mg tablet,delayed 40 mg PO DAILY PRN G ERD 03/17/24 06/14/24 History release rosuvastatin 20 mg tablet 40 mg PO QHS 05/15/24 History estradiol 0.01% (0.1 mg/gram) 1 appful vaginal PRN 09/22 Unknown History vaginal cream ipratropium bromide 21 mcg (0.03 2 spray intranasal BI D-TID PRN 12/17/24 Unknown Rx %) nasal spray postnasal drainage #30 mL ondansetron 4 mg disintegrating 4 mg PO Q8H #14 tabs 0 04/13/25 06/17/25 00:05 Rx tablet Allergy/AdvReac Type Severity Reaction Status Date / Time Sulfa (Sulfonamide Allergy Intermediate Other Verified 06/17/25 05:51 Antibiotics) atorvastatin (From Lipitor) Allergy Mild itching Verified 06/17/25 05:51 adhesive tape AdvReac Rash Verified 06/17/25 05:51 Family History Father Heart disease Mother Heart disease Hypertension Thyroid disorder CVA (cerebral vascular accident) Brother Heart disease Brother Heart disease Other IBS (irritable bowel syndrome) Surgical History S/P hysterectomy S/P cholecystectomy S/P hernia repair (~01/14/19) S/P appendectomy S/P colectomy Social History Smoking Status: Never smoker alcohol intake: current alcohol intake frequency: holidays/special occasions only substance use type: does not use caffeine: Yes what type of physical activity do you participate in: walking seatbelt use: always do you feel safe at home: Yes additional social history: - Luis Patient and are both retired Review of Systems (Anesthesia) ROS Narrative System reviewed and no additional complaints, except as documented. 06/17/25620 <Electronically signed by Lisa Dumont CRNA> Date _ Lisa Dumont CRNA Cosigner Signature: Date CC: ~ Signed [facility] Work Phone: Consult note Author Lisa Dumont [facility] Note Date/Time June 17, 2025 7:17am [facility] Medical Records Department [address] [place] [address] Anesthesia Postop Eval I 06/17/25715 MR#: [id number] Acct: [id number] Name: HALLIE GUZMAN Rep #:[id number] : 1950 75 From: Lisa Hernandez RNA PCP: Dr. Sarah Huynh MD Status:REG SDC Y Race: C Location: [place] [address] Anesthesia: Postop Eval I Current Vital Signs Temperature: 97.8 F Pulse Rate: 68 Blood Pressure: 88/62 Respiratory Rate: 16 Pulse Ox: 96 Oxygen Delivery Method: Room Air Assessment Airway patent: Yes Spontaneous unlabored respirations: Yes Mental status: Awake and Calm nausea: No Vomiting: No Anesthesia Complication: No Fluid Hydration Crystalloid volume administer (ml): 300 Total IV fluid infused: 300 Progress Note Anesthesia document: Postop Eval 1 completed: Yes 06/17/25716 <Electronically signed by Lisa Dumont CRNA> Date _ Lisa Dumont CRNA Cosigner Signature: Date CC: ~ Signed [facility] Work Phone: Evaluation noteThere may be information available, but it has not been provided by the sender.[facility] Work Phone: Evaluation note* Diagnosis Onset Date Resolution Status COVID-19 acute [facility] Work Phone: Evaluation note* Diagnosis Hypothyroidism, unspecified type- Primary Vitamin D deficiency Unspecified vitamin D deficiency Gastroesophageal reflux disease without esophagitis Esophageal reflux Numbness and tingling of both lower extremities Extremity numbness Disturbance of skin sensation Hyperlipidemia LDL goal <100 Other and unspecified hyperlipidemia Acute pain of left [facility] Hyperlipidemia LDL goal <100- Primary Other and unspecified hyperlipidemia [facility] Diagnosis Benign essential tremor Essential and other specified forms of tremor [facility] Diagnosis Onset Date Resolution Status Encounter for routine gynecological examination noneactive [facility] Work Phone: Evaluation note* Diagnosis Epigastric pain- Primary Abdominal pain, epigastric Nausea Nausea alone Chronic nausea Nausea alone Chronic constipation Unspecified constipation Gastroesophageal reflux disease without esophagitis Esophageal reflux [facility] Diagnosis Onset Date Resolution Status GERD (gastroesophageal reflux disease) chronic IBS (irritable bowel syndrome) [facility] Work Phone: Evaluation note* Diagnosis Onset Date Resolution Status GERD (gastroesophageal reflux disease) chronic IBS (irritable bowel syndrome) chronic Constipation acute Fatty liver acute P-ANCA titer positive acute GERD (gastroesophageal reflux disease) [facility] Work Phone: Evaluation note* Diagnosis Polyneuropathy- Primary [...] lumbosacral intervertebral disc [facility] Diagnosis Onset Date Resolution Status Dysuria acute NAFLD (nonalcoholic fatty liver disease) [facility] Work Phone: Evaluation note* Diagnosis Polyneuropathy- Primary [...] legs syndrome (RLS) [facility] Diagnosis Onset Date Resolution Status Dysuria acute NAFLD (nonalcoholic fatty liver disease) chronic Essential hypertension acute [facility] Work Phone: Evaluation note* Diagnosis Onset Date Resolution Status Acute pharyngitis acute [facility] Work Phone: Evaluation note* Diagnosis Onset Date Resolution Status Acute pharyngitis acute Epigastric abdominal pain ac osage [facility] Work Phone: Evaluation note* Diagnosis Onset Date Resolution Status Epigastric abdominal pain ch ronic Sinus infection acute URI (upper respiratory infection) acute Epigastric abdominal pain ch ronic GERD (gastroesophageal reflux disease) chronic IBS (irritable bowel syndrome) chronic NAFLD (nonalcoholic fatty liver disease) chronic [facility] Work Phone: Evaluation note* Diagnosis Onset Date Resolution Status Epigastric abdominal pain ch ronic Sinus infection acute URI (upper respiratory infection) acute Epigastric abdominal pain ch ronic GERD (gastroesophageal reflux disease) chronic IBS (irritable bowel syndrome) chronic NAFLD (nonalcoholic fatty liver disease) chronic Bug bite without infection a cute [facility] Work Phone: Evaluation note* Diagnosis Essential tremor Essential and other specified forms of tremor RLS (restless legs syndrome) Restless legs syndrome (RLS) [facility] Diagnosis Benign neoplasm of colon- Primary Diverticulitis Diverticulitis of colon (without mention of hemorrhage) Acute pain of left knee [facility] Diagnosis Benign neoplasm of colon- Primary Diverticulitis Diverticulitis of colon (without mention of hemorrhage) Acute constipation Unspecified constipation [facility] Diagnosis Benign neoplasm of colon- Primary Diverticulitis Diverticulitis of colon (without mention of hemorrhage) Acute cough- Primary Influenza A Influenza with other respiratory manifestations [facility] Diagnosis Benign neoplasm of colon- Primary Diverticulitis Diverticulitis of colon (without mention of hemorrhage) Acute cough [facility] Author Bridger Lanier [facility] Note Date/Time June 17, 2025 6:36am [facility] Medical Records Department [address] [place] [address] History & Physical Exam 06/17/25 0635 MR#: [id number] Acct: [id number] Name: HALLIE GUZMAN Rep #:[id number] : 1950 75 From: Bridger Lanier DO PCP: Dr. Sarah Huynh MD Status:REG [facility] Location: [address] HPI - General General Date of Admission: 06/17/25 Date of Service: 06/17/25 Chief Complaint: Screening colonoscopy HPI Narrative HALLIE GUZMAN, is a 75 F who presents for screening colonoscopy EGD/colonoscopy 05.30.20 [facility] EGD erythematous duodenopathy Colonoscopy diverticulosis Small [...] increased pancreatic echogenicity; mild right hydronephrosis. Biochemical 10.04.22 ANCA profile WNL US/elastography .03.22 hepatic measurement 13.4cm with fatty infiltration, stiffness [...] 2-3 times per day. Heartburn is well controlledwith Pantoprazole 40 mg daily. She is due for a colonoscopy now. [facility] Medical History History of steroid therapy High [...] Diverticulosis Cyst of left kidney Home Medications ?Medication ?Instructions ?Recorded ?Last Taken ?Type albuterol sulfate 90 mcg/actuation 2 puff inhalation Q 4H PRN Sob &/Or 10/11/17 06/14/24 History aerosol inhaler Wheezing cholecalciferol (vitamin D3) 50 4,000 unit PO QDAY 09/1606/15/25 History mcg (2,000 unit) capsule levothyroxine 50 mcg tablet 88 mcg PO DAILY 06/06/18 0 06/17/25 03:00 History pantoprazole 40 mg tablet,delayed 40 mg PO DAILY PRN G ERD 03/17/24 06/14/24 History release rosuvastatin 20 mg tablet 40 mg PO QHS 05/15/24 History estradiol 0.01% (0.1 mg/gram) 1 appful vaginal PRN 09/22 Unknown History vaginal cream ipratropium bromide 21 mcg (0.03 2 spray intranasal BI D-TID PRN 12/17/24 Unknown Rx %) nasal spray postnasal drainage #30 mL ondansetron 4 mg disintegrating 4 mg PO Q8H #14 tabs 0 04/13/25 06/17/25 00:05 Rx tablet Allergy/AdvReac Type Severity Reaction Status Date / Time Sulfa (Sulfonamide Allergy Intermediate Other Verified 06/17/25 05:51 Antibiotics) atorvastatin (From Lipitor) Allergy Mild itching Verified 06/17/25 05:51 adhesive tape AdvReac Rash Verified 06/17/25 05:51 Family History Father Heart disease Mother Heart disease Hypertension Thyroid disorder CVA (cerebral vascular accident) Brother Heart disease Brother Heart disease Other IBS (irritable bowel syndrome) Surgical History S/P hysterectomy S/P cholecystectomy S/P hernia repair (~01/14/19) S/P appendectomy S/P colectomy Social History Smoking Status: Never smoker alcohol intake: current alcohol intake frequency: holidays/special occasions only substance use type: does not use caffeine: Yes what type of physical activity do you participate in: walking seatbelt use: always do you feel safe at home: Yes additional social history: - Luis Patient and are both retired ROS Constitutional Constitutional: Denies fatigue, fever(s), poor appetite, weight gain or weight loss Gastrointestinal Gastrointestinal: Denies belching, bloating, change in bowel habits, change in stool character, chewing difficulty, coffee ground emesis, constipation, cramping, diarrhea, dyspepsia, dysphagia, early satiety, excessive flatus, fecalincontinence, heartburn, hematemesis, hematochezia, hemorrhoids, loose stools, melena, nausea, odynophagia, rectal bleeding, tenesmus, vomiting or weight changes Vital Signs Vital Signs Vital Signs: 06/17/25 05:54 06/17/25 05:55 06/17/25 06:21 Temperature 97.5 F L 97.5 F L Temperature Source Temporal Pulse Rate 64 64 Respiratory Rate 18 18 Respiratory Pattern Normal Blood Pressure 132/69 H 132/69 H Blood Pressure Mean 90 Blood Pressure Source Monitor Blood Pressure Position Semi-Fowlers Blood Pressure Location Left Arm Pulse Ox 97 97 Oxygen Delivery Method Room Air Room Air Weight Weight: 150 lb Body Mass Index (BMI) 25.7 Physical Exam Const alert, oriented x3, no apparent distress and healthy appearing General Appearance: cooperative GI normal to inspection, nondistended, normoactive bowel sounds, soft to palpation,non-tender and non-distended Percussion: normal to percussion Rectal Exam: deferred Assessment & Plan Assessment/Plan (1) Screening for colon cancer: PLAN: Assessment and Plan Assessment and Plan (1) Fatty liver: Status: Acute Plan: Hallie is a 74 yo female pt with PMHx of fatty liver, constipation and GERD. She has been feeling well. She did discontinue her gabapentin which seems to have relieved her constipation. Heartburn is controlled with PPI and she will continue this. She is due for colonoscopy and will be scheduled for this today. Last elastography was in 2022 with stiffness of 6kpa. Will repeat elastography. -Continue PPI -Colonoscopy -liver elastography -f/u after procedure (2) Constipation: Status: Acute (3) GERD (gastroesophageal reflux disease): Status: Chronic Orders: Orders ABD Limited w/ Elastography Today K76.0 - Fatty (change of) liver, not elsewhere classified Medications: New ondansetron 4 mg PO Q8H 14 tabs 0RF 06/17/25 0636 <Electronically signed by Bridger Lanier DO> Cosigner Signature (if applicable): CC: Dr. Sarah Huynh MD; Bridger Lanier DO~ Signed [facility] Work Phone: Instructions* Instruction Description Start Date Completed [facility] Work Phone: Reason for referral (narrative)* Diagnostic Procedure Only (Urgent) - Closed Specialty Diagnoses / Procedures Referred By Madelinac t Referred To Contact XR IMAGING Diagnoses Acute pain of left knee Procedures XR KNEE GENERAL 4V AP BOTH/PA BOTH/LAT/MERC LEFT RADIOLOGIC EXAM KNEE COMPLETE 4/MORE VIEWS Rosy Donis APRN.CNP [address] [place] [address] [place] [address] Referral ID Status Reason Start Date Expiration Date V isits Requested Visits Authorized [id number] Closed Auto-Generate d Referral 01/10/2022 02/09/2023 1 1 [facility]No reason for referral information [facility]WK[facility] Work Phone: Reason for visit Narrative* Diagnostic Procedure Only (Urgent) - Closed Specialty Diagnoses / Procedures Referred By Nicki shin Referred To Contact XR IMAGING Diagnoses Acute pain of left knee Procedures XR KNEE GENERAL 4V AP BOTH/PA BOTH/LAT/MERC LEFT RADIOLOGIC EXAM KNEE COMPLETE 4/MORE VIEWS Rosy Donis APRN.CNP [address] [place] [address] [place] [address] Referral ID Status Reason Start Date Expiration Date V isits Requested Visits Authorized [id number] Closed Auto-Generate d Referral 01/10/2022 02/09/2023 1 1 [facility] Summary Purpose Family History No Family History [...] FoundDocuments on File Type Date Recorded 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 Advance Directive(s) 05/30/2020 11:21 AM Advance Directive(s) 05/16/2020 8:58 AM Advance Directive(s) 05/22/2019 9:22 AM Advance Directive(s) 05/14/2019 3:20 PM Advance Directive(s) 02/08/2016 7:36 AM Advance Directive Response Recorded Date/ Time Living Will No March 27, 2021 10:46am Power of Coding Compliance Specialist No March 27 10:46am Documents on File Type Date Recorded 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 Advance Directive(s) 05/30/2020 11:21 AM Advance Directive(s) 05/16/2020 8:58 AM Advance Directive(s) 05/22/2019 9:22 AM Advance Directive(s) 05/14/2019 3:20 PM Advance Directive(s) 02/08/2016 7:36 AM Advance Directive Response Recorded Date/ Time Living Will No March 27, 2021 9:46am Power of Coding Compliance Specialist No March 27 9:46am Advance Directive Response Recorded Date/ Time Living Will No March 12, 2023 6:09am Power of Coding Compliance Specialist No March 12 6:09am Advance Directive Response Recorded Date/ Time Living Will No March 12, 2023 5:09am Power of Coding Compliance Specialist No March 12 5:09am Advance Directive Response Recorded Date/ Time Living Will No March 12, 2023 6:09am Power of Coding Compliance Specialist No March 12 6:09am Living Will No June 11, 2024 9:40am Power of Coding Compliance Specialist No May 9:40am Advance Directive Response Recorded Date/ Time Living Will No March 12, 2023 6:09am Do you have a Healthcare Power of Coding Compliance Specialist? No March 12, 2023 6:09am Living Will No June 11, 2024 9:40am Do you have a Healthcare Power of Coding Compliance Specialist? No June 11, 2024 9:40am Advance Directive Response Recorded Date/ Time Living Will No June 11, 2024 9:40am Do you have a Healthcare Power of Coding Compliance Specialist? No June 11, 2024 9:40am Advance Directive Response Recorded Date/ Time Do you have a Healthcare Power of Coding Compliance Specialist? 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 RX HERE. Reason for Visit Encounter for routin e gynecological examination Chief Complaint SCREENING Annual (AGRICULTURE MANAGER) ACUTE MEDIAL MENISCUS TEAR LEFT KNEE. RX [...] positive GERD (gastroesophageal reflux disease) Chief Complaint BREAST BUFFER SCREENING FATTY LIVER CONCERN FOR UTI Dysuria [...] Date Acute otitis externa of right ear [facility] 2023 11:51am URI (upper respiratory infection) [facility] 2023 11:51am Constipation October 23, 2024 9 :54am Weight loss October 23, 2024 9 :54am GERD (gastroesophageal reflux disease) J anuary 2024 9:54am Elevated coronary artery calcium score [facility] 2024 1:43pm Essential hypertension December 08, [...] Fatty liver April 13, 2025 9:25 am Chief Complaint Admit Date screening for breast cancer February 26 10:00am STRICTURE OF ARTERY , PAD April 05, 2025 10:50am 6 M FU April 13, 2025 9:25 am FATTY LIVER June 11, 2025 9:41am Reason for Visit Admit Date Constipation April 13, 2025 9:25 am Fatty liver April 13, 2025 9:25 am GERD (gastroesophageal reflux disease) J wicho 2024 9:25am Screening for colon cancer May 5:21am Reason for Referral Specialty Diagnoses / Procedures Referred By Contac t Referred To Contact Gastroenterology Diagnoses Epigastric pain Nausea Chronic nausea Chronic constipation Gastroesophageal reflux disease without esophagitis Procedures CONSULT TO GASTROENTEROLOGY OFFICE/OUTPATIENT NEW HIGH MDM 60-74 MINUTES Parul Cummings APRN.REPAIR WELDER [address] [place] [address] Referral ID Status Reason Start Date Expiration Date Visits Requested Visits Authorized [id number] Authorized PCP Requested Referral 04/19/2022 04/19/2023 1 1 Specialty Diagnoses / Procedures Referred By Contac t Referred To Contact Diagnoses Essential tremor RLS (restless legs syndrome) Procedures PROVIDER ORDERED FOLLOW UP OFFICE/OUTPATIENT NEW HIGH MDM 60 MINUTES Cash Lama MD [address] [facility] [address] [place] [address] Referral ID Status Reason Start Date Expiration Date Visits Requested Visits Authorized [id number] Authorized PCP Requested Referral 04/01/2024 06/30/2024 1 1 Additional Source Comments INFORMATION SOURCE (unrecogn ized section and content) DATE CREATED AUTHOR 03/19/2018 [facility] DATE CREATED AUTHOR AUTHOR'S ORGANIZ ATION 05/31/2021 [facility] DATE CREATED AUTHOR AUTHOR'S ORGANIZ ATION 06/15/2023 [facility] DATE CREATED AUTHOR AUTHOR'S ORGANIZ ATION 12/21/2024 [facility] DATE CREATED AUTHOR AUTHOR'S ORGANIZ ATION 06/20/2025 [facility] Source Comments (unrecognize d section and content) In the event this informatio n is protected by the Federal Confidentiality of Alcohol and Drug Abuse Patient Records regulations: The Federal rules restrict any use of the information to criminally investigate or prosecute any alcohol or drug abuse patient.[facility] HospitalIn the event this information is protected by the Federal Confidentiality of Alcohol and Drug Abuse Patient Records regulations: The Federal rules restrict any use of the information to criminally investigate or prosecute any alcohol or drug abuse patient.[facility] HospitalIn the event this information is protected by the Federal Confidentiality of Alcohol and Drug Abuse Patient Records regulations: The Federal rules restrict any use of the information to criminally investigate or prosecute any alcohol or drug abuse patient.[facility] HospitalIn the event this information is protected by the Federal Confidentiality of Alcohol and Drug Abuse Patient Records regulations: The Federal rules restrict any use of the information to criminally investigate or prosecute any alcohol or drug abuse patient.[facility] HospitalIn the event this information is protected by the Federal Confidentiality of Alcohol and Drug Abuse Patient Records regulations: The Federal rules restrict any use of the information to criminally investigate or prosecute any alcohol or drug abuse patient.[facility] HospitalIn the event this information is protected by the Federal Confidentiality of Alcohol and Drug Abuse Patient Records regulations: The Federal rules restrict any use of the information to criminally investigate or prosecute any alcohol or drug abuse patient.[facility] HospitalIn the event this information is protected by the Federal Confidentiality of Alcohol and Drug Abuse Patient Records regulations: The Federal rules restrict any use of the information to criminally investigate or prosecute any alcohol or drug abuse patient.[facility] HospitalIn the event this information is protected by the Federal Confidentiality of Alcohol and Drug Abuse Patient Records regulations: The Federal rules restrict any use of the information to criminally investigate or prosecute any alcohol or drug abuse patient.[facility] HospitalIn the event this information is protected by the Federal Confidentiality of Alcohol and Drug Abuse Patient Records regulations: The Federal rules restrict any use of the information to criminally investigate or prosecute any alcohol or drug abuse patient.[facility] HospitalIn the event this information is protected by the Federal Confidentiality of Alcohol and Drug Abuse Patient Records regulations: The Federal rules restrict any use of the information to criminally investigate or prosecute any alcohol or drug abuse patient.[facility] HospitalIn the event this information is protected by the Federal Confidentiality of Alcohol and Drug Abuse Patient Records regulations: The Federal rules restrict any use of the information to criminally investigate or prosecute any alcohol or drug abuse patient.[facility] HospitalIn the event this information is protected by the Federal Confidentiality of Alcohol and Drug Abuse Patient Records regulations: The Federal rules restrict any use of the information to criminally investigate or prosecute any alcohol or drug abuse patient.[facility] HospitalIn the event this information is protected by the Federal Confidentiality of Alcohol and Drug Abuse Patient Records regulations: The Federal rules restrict any use of the information to criminally investigate or prosecute any alcohol or drug abuse patient.[facility] HospitalIn the event this information is protected by the Federal Confidentiality of Alcohol and Drug Abuse Patient Records regulations: The Federal rules restrict any use of the information to criminally investigate or prosecute any alcohol or drug abuse patient.[facility] HospitalIn the event this information is protected by the Federal Confidentiality of Alcohol and Drug Abuse Patient Records regulations: The Federal rules restrict any use of the information to criminally investigate or prosecute any alcohol or drug abuse patient.[facility] HospitalIn the event this information is protected by the Federal Confidentiality of Alcohol and Drug Abuse Patient Records regulations: The Federal rules restrict any use of the information to criminally investigate or prosecute any alcohol or drug abuse patient.[facility] HospitalIn the event this information is protected by the Federal Confidentiality of Alcohol and Drug Abuse Patient Records regulations: The Federal rules restrict any use of the information to criminally investigate or prosecute any alcohol or drug abuse patient.[facility] HospitalIn the event this information is protected by the Federal Confidentiality of Alcohol and Drug Abuse Patient Records regulations: The Federal rules restrict any use of the information to criminally investigate or prosecute any alcohol or drug abuse patient.[facility] HospitalIn the event this information is protected by the Federal Confidentiality of Alcohol and Drug Abuse Patient Records regulations: The Federal rules restrict any use of the information to criminally investigate or prosecute any alcohol or drug abuse patient.[facility] HospitalIn the event this information is protected by the Federal Confidentiality of Alcohol and Drug Abuse Patient Records regulations: The Federal rules restrict any use of the information to criminally investigate or prosecute any alcohol or drug abuse patient.[facility] HospitalIn the event this information is protected by the Federal Confidentiality of Alcohol and Drug Abuse Patient Records regulations: The Federal rules restrict any use of the information to criminally investigate or prosecute any alcohol or drug abuse patient.[facility] Reason for Visit (unrecogniz ed section [...] Up Specialty Diagnoses / Procedures Referred By Contac t Referred To Contact Diagnoses Essential tremor RLS (restless legs syndrome) Procedures PROVIDER ORDERED FOLLOW UP Cash Lama MD [address] [place] [id number] Referral ID Status Reason Start Date Expiration Date V isits Requested Visits Authorized [id number] Closed PCP Requested Referral 08/01/2023 10/30/2023 1 1 Reason Comments requesting CXR Care Teams (unrecognized sec tion and content) Consumer Services Consultant Relationship Specialty Start Date End Date Genevieve Graham MD [address] [place], [place] [id number] PCP - General Internal Medicine 07/11/21 Consumer Services Consultant Relationship Specialty Start Date End Date Genevieve Graham MD [address] [place] [address] PCP - General Internal Medicine 07/11/21 Consumer Services Consultant Relationship Specialty Start Date End Date Genevieve Graham MD [address] [place] [address] PCP - General Internal Medicine 07/11/21 Consumer Services Consultant Relationship Specialty Start Date End Date Genevieve Graham MD [address] [place] [address] PCP - General Internal Medicine 07/11/21 Consumer Services Consultant Relationship Specialty Start Date End Date Genevieve Graham MD [address] [place] [address] PCP - General Internal Medicine 07/11/21 Consumer Services Consultant Relationship Specialty Start Date End Date Genevieve Graham MD [address] [place] [address] PCP - General Internal Medicine 07/11/21 Consumer Services Consultant Relationship Specialty Start Date End Date Genevieve Graham MD [address] [place] [address] PCP - General Internal Medicine 07/11/21 Team Status: Active Member Role Status Dates Dr. Nahed Faust III, MD Family Provider Active Dr. Ash Roberts MD Primary Care Provider Active Team Status: Inactive Member Role Status Dates Dr. Genevieve Graham MD Primary Care Provider, Referr ing Provider Active Dr. Bridger Lanier , Attending Provider Active Team Status: Inactive Member Role Status Dates Dr. Genevieve Graham MD Referring Provider Active Pearl Shepard TOOL GRINDER SET UP OPERATOR GEAR, TOOL GRINDER SET UP OPERATOR GEAR-C Attending Provider Active Dr. Ash Roberts MD Primary Care Provider Active Team Status: Inactive Member Role Status Dates Cash Arias , Primary Care Provider Active Dr. Bridger Lanier , DO Attending Provider Active Team Status: Inactive Member Role Status Dates Cash Arias , DO Primary Care Provider Active Dr. Bridger Lanier , Attending Provider, Referring Provider Active Team Status: Inactive Member Role Status Dates Dr. Ash Roberts MD Primary Care Provide r, Attending Provider, Referring Provider Active Team Status: Inactive Member Role Status Dates Dr. Ash Roberts MD Primary Care Provider Active Courtney Dillard , TOOL GRINDER SET UP OPERATOR GEAR-C Attending Provider Active Team Status: Inactive Member Role Status Dates Dr. Ash Roberts MD Primary Care Provider Active Pearl Shepard TOOL GRINDER SET UP OPERATOR GEAR, TOOL GRINDER SET UP OPERATOR GEAR-C Attending Provider Active Team Status: Inactive Member Role Status Dates Dr. Ash Roberts MD Primary Care Provider Active Pearl Shepard TOOL GRINDER SET UP OPERATOR GEAR, TOOL GRINDER SET UP OPERATOR GEAR-C Attending Provider, Referrin g Provider Active Consumer Services Consultant Relationship Specialty Start Date End Date Genevieve Graham MD [address] [place] [address] PCP - General Internal Medicine 07/11/21 Team Status: Inactive Member Role Status Dates Dr. Ash Roberts MD Primary Care Provider, Referring P rovider Active Pearl Shepard TOOL GRINDER SET UP OPERATOR GEAR, TOOL GRINDER SET UP OPERATOR GEAR-C Attending Provider Active Team Status: Active Member [...] MD Primary Care Provider Active Juany Roberto NP, TOOL GRINDER SET UP OPERATOR GEAR-C Attending Provider, Referring Provider Active Team Status: [...] PA Attending Provider, Referring Provi subhash Active Consumer Services Consultant Relationship Specialty Start Date End Date Nahed [...] DO Primary Care Provider Active Keiry Ramirez TOOL GRINDER SET UP OPERATOR GEAR, TOOL GRINDER SET UP OPERATOR GEAR-C Attending Provider Active Team Status: Inactive Member Role Status Dates Dr. Ash Roberts MD Primary Care Provider Active Juany Roberto TOOL GRINDER SET UP OPERATOR GEAR, TOOL GRINDER SET UP OPERATOR GEAR-C Attending Provider, Referring Provider Active Team Status: Inactive Member Role Status Dates Dr. Ash Roberts MD Primary Care Provider Active MIKI ESTRADA Attending Provider, Referring Provider A ctive Team Status: Inactive Member Role Status Dates Cash Arias DO Primary Care Provider Active Dr. Joel Islas MD Attending Provider, Referring Pro vider Active Consumer Services Consultant Relationship Specialty Start Date End Date Nahed [...] Sarah Huynh MD Primary Care Provider Active CHU ValenciaC Attending Provider, Referring Prov ider Active Team [...] Provider, Referrin g Provider Active Dr. Bridger Lanier DO Attending [...] Care Provider, Referrin g Provider Active Jazzy Altamirano PA, PA Attending Provider Active Consumer Services Consultant Relationship Specialty Start Date End Date Cash Arias DO [address] [facility] [address] [place] [address] PCP - General Family Medicine 07/01/23 Consumer Services Consultant Relationship Specialty Start Date End Date Cash Arias DO [address] [facility] [address] [place], [place] [id number] PCP - General Family Medicine 07/01/23 Consumer Services Consultant Relationship Specialty Start Date End Date Genevieve Graham MD [address] [place], [place] [address] PCP - General Internal Medicine 07/11/21 12/31/22 Consumer Services Consultant Relationship Specialty Start Date End Date Nahed Faust III, MD NO [employer]WARD[employer] ADDRESS PCP - General 03/20/01 07/10/21 Consumer Services Consultant Relationship Specialty Start Date End Date Cash Arias DO PCP - General Family Medicine 07/01/23 Consumer Services Consultant Relationship Specialty Start Date End Date Cash Arias DO PCP - General Family Medicine 07/01/23 Team Status: Inactive Member Role Status Dates Dr. Sarah Huynh MD Primary Care Provider Active Start: September 09, 2024 End: September 09, 2024 Dr. Sarah Huynh MD Referring Provider Active Start: September 09, 2024 End: September 09, 2024 Gus Lomeli PA, PA Attending Provider Active Start: September 09, [...] 04, 2024 End: December 04, 2024 Jazzy Altamirano PA, PA Attending Provider Active Start: December 04, 2024 End: December 04, 2024 Jazzy Altamirano PA, PA Referring Provider Active Start: December 04, 2024 End: December 04, 2024 Team Status: Inactive Member Role Status Dates Dr. Sarah Huynh MD Primary Care Provider Active Start: December 08, 2024 End: December 08, 2024 Dr. Sarah Huynh MD Referring Provider Active Start: December 08, 2024 End: December 08, 2024 Jazzy Altamirano PA, PA Attending Provider Active Start: December 08, [...] 2025 End: February 26, 2025 Juany Roberto TOOL GRINDER SET UP OPERATOR GEAR, TOOL GRINDER SET UP OPERATOR GEAR-C Attending Provider Active Start: February 26, 2025 End: February 26, 2025 Juany Roberto TOOL GRINDER SET UP OPERATOR GEAR, TOOL GRINDER SET UP OPERATOR GEAR-C Referring Provider Active Start: February 26, 2025 [...] 2025 End: February 26, 2025 Juany Roberto TOOL GRINDER SET UP OPERATOR GEAR, TOOL GRINDER SET UP OPERATOR GEAR-C Attending Provider Active Start: February 26, 2025 End: February 26, 2025 Juany Roberto TOOL GRINDER SET UP OPERATOR GEAR, TOOL GRINDER SET UP OPERATOR GEAR-C Referring Provider Active Start: February 26, 2025 [...] December 17, 2024 End: December 17, 2024 ERIC Paula Attending Provider Active Sta rt: December 17, 2024 End: December 17, 2024 Team Status: Inactive Member Role/Relationship Status Dates Dr. Sarah Huynh MD Primary Care Provider Active Start: February 26, 2025 End: February 26, 2025 Juany Roberto TOOL GRINDER SET UP OPERATOR GEAR, TOOL GRINDER SET UP OPERATOR GEAR-C Attending Provider Active Start: February 26, 2025 End: February 26, 2025 Juany Roberto TOOL GRINDER SET UP OPERATOR GEAR, TOOL GRINDER SET UP OPERATOR GEAR-C Referring Provider Active Start: February 26, 2025 [...] April 13, 2025 End: April 13, 2025 Team Status: Active Member Role/Relationship Status Dates Dr. Sarah Huynh MD Primary care physician Active Team Status: Inactive Member Role/Relationship Status Dates Dr. Sarah Huynh MD Primary care physician Active Start: February 26, 2025 End: February 26, 2025 Juany Roberto TOOL GRINDER SET UP OPERATOR GEAR, TOOL GRINDER SET UP OPERATOR GEAR-C Attending physician Active Start: February 26, 2025 End: February 26, 2025 Juany Roberto TOOL GRINDER SET UP OPERATOR GEAR, TOOL GRINDER SET UP OPERATOR GEAR-C Referring Provider Active Start: February 26, 2025 End: February 26, 2025 Team Status: Inactive Member Role/Relationship Status Dates Dr. Sarah Huynh MD Primary care physician Active Start: April 05, 2025 End: April 05, 2025 Dr. Tony Bolden MD Attending physician Active Start: April 05, 2025 End: April 05, 2025 Dr. Tony Bolden MD Referring Provider Active Start: April 05, 2025 End: April 05, 2025 Team Status: Inactive Member Role/Relationship Status Dates Dr. Sarah Huynh MD Primary care physician Active Start: April 13, 2025 End: April 13, 2025 Dr. Sarah Huynh MD Referring Provider Active Start: April 13, 2025 End: April 13, 2025 ERIC Long Attending physician Active Start: April 13, 2025 End: April 13, 2025 Team Status: Active Member Role/Relationship Status Dates Dr. Sarah Huynh MD Primary care physician Active Start: June 11, 2025 ERIC Long Attending physician Active Start: June 11, 2025 ERIC Long Referring Provider Active Start: June 11, 2025 Team Status: Inactive Member Role/Relationship Status Dates Dr. Sarah Huynh MD Primary care physician Active Start: June 17, 2025 End: June 17, 2025 Dr. Sarah Huynh MD Referring Provider Active Start: June 17, 2025 End: June 17, 2025 Dr. Bridger Lanier DO Attending physician Active Start: June 17, 2025 End: June 17, 2025 Team Status: Active Member Role/Relationship Status Dates Dr. Sarah Huynh MD Primary care physician Active Start: June 17, 2025 Dr. Sarah Huynh MD Referring Provider Active Start: June 17, 2025 Dr. Bridger Lanier , DO Attending physician Active Start: June 17, 2025 Dr. Bridger Lanier , DO Nurse Practitioner Active Start: June 17, 2025 Goals (unrecognized section and content) Goals [...] BE BASED ON THE PRIMARY CLINICAL RECORDS. [employer] [facility] provides no warranty or guarantee of the accuracy or completeness of information in this document.
[2025-06-24 08:44] LABS: AST(SGOT) 15 U/L (<=31); Alanine Aminotransfer ALT/SGPT 17 U/L (<=34); Albumin, Serum 3.9 g/dL (3.4-4.8); Alkaline Phosphatase 84 U/L (35-104); Bilirubin, Direct 0.20 mg/dL (0.00-0.30); Cholesterol 118 mg/dL (<=200); Globulin 2.3 g/dL (2.2-4.2); Low Density Lipoprotein Calc. 59 mg/dL; Triglycerides 87 mg/dL; Very Low Density Lipoprotein 17 mg/dL (5-40); cholesterol:hdl ratio screen 2.82
== END | disposition home or self-care (01) ==
LOC: LAB 07:12
PROVIDERS: PCP Family Medicine; Referring Provider Physician Assistant Medical; Visit Provider Physician Assistant Medical
DX: E78.00 Pure hypercholesterolemia, unspecified (principal)
CPT/HCPCS: 36415; 80061; 80076